=== PATIENT | female | born 1995 | race Caucasian/White ===

== ENCOUNTER 2016-12-15 07:44 | Inpatient (IN) | payer OTHER ==
[2016-12-15] VITALS (12 sets, daily range): BP systolic 100–114; BP diastolic 68–71; PULSE 74–98; RESP 24–27; TEMP 96.3–97.9; O2SAT 84–100
[~2016-12-15] VITALS: Ht 154.9 cm; Wt 47.9 kg
[2016-12-15] MEDS ORDERED: ceFAZolin 2 GM PREMIX 50 ML ONE (07:49)
[2016-12-15] MEDS ORDERED: DIPHTH/TETANUS/ACEL PERTUSSIS (BOOSTER) 0.5 ML VIAL/PFS IM ONE (07:49)
[2016-12-15] MEDS ORDERED: MANNITOL INJ 50 ML ONE (08:02)
[2016-12-15] MEDS ORDERED: MIDAZOLAM HCL 5 MG/ML VIAL (1 ML) ONE (08:08)
[2016-12-15 08:09] LABS: AUTOMATED NEUTROPHIL # 10.8 TH/MM3 (1.8-7.7); BASOPHIL % 0.2 % (0.0-2.0); EOSINOPHIL # 0.1 TH/MM3 (0-0.4); EOSINOPHIL % 0.4 % (0.0-4.0); HEMO FLAGS DIFF FINAL; LYMPH % 15.9 % (9.0-44.0); LYMPHOCYTE # 2.1 TH/MM3 (1.0-4.8); MEAN CELL VOLUME 84.7 FL (80.0-100.0); MEAN CORPUSCULAR HEMOGLOBIN 28.9 PG (27.0-34.0); MEAN CORPUSCULAR HGB CONC 34.1 % (32.0-36.0); NEUT % 80.5 % (16.0-70.0); PLATELET COUNT 170 TH/MM3 (150-450); RED BLOOD COUNT 3.66 MIL/MM3 (4.00-5.30); RED CELL DISTRIBUTION WIDTH 12.7 % (11.6-17.2); WHITE BLOOD COUNT 13.4 TH/MM3 (4.0-11.0)
[2016-12-15 08:11] LABS: I-STAT POTASSIUM 2.6 MMOL/L (3.5-4.9); I-STAT SODIUM 140 MMOL/L (138-146)
[2016-12-15 08:19] LABS: APTT (PATIENT) 23.9 SEC (24.3-30.1); INTERNATIONAL NORMALIZED RATIO 1.1 RATIO; PROTHROMBIN TIME - PATIENT 11.8 SEC (9.8-11.6)
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
[2016-12-15] MEDS ORDERED: IOHEXOL 350 MG/ML 100 ML BTL (for RAD DIAG) IV ONE (08:32)
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
[2016-12-15 08:37] LABS: BETA HCG QUANT LESS THAN 1 MIU/ML (0-5)
[2016-12-15] MEDS ORDERED: ceFAZolin INJ 1,000 MG VIAL IV ONE (08:55)
[2016-12-15] MEDS ORDERED: LIDOCAINE 1%/EPINEPHrine 1:100,000 SOLN 20 ML VIAL INFIL ONE ×2 (09:09→10:15)
[2016-12-15] MEDS ORDERED: GENTAMICIN SULFATE 80 MG/2 ML VIAL IRRIGATION ONE (09:09)
[2016-12-15] MEDS ORDERED: THROMBIN (TOPICAL) 5,000 UNIT VIAL TOPICAL ONE (09:09)
[2016-12-15] MEDS ORDERED: GELFOAM SIZE 100 TOP ONE (09:09)
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
[2016-12-15 09:17] LABS: BLOOD GAS BASE EXCESS -11.2 mmol/L (-2-2); BLOOD GAS HCO3 15 mmol/L (22-26); BLOOD GAS METHEMOGLOBIN 1.2 % (0-2); BLOOD GAS O2 HGB SATURATION 96 % (90-100); BLOOD GAS OXYGEN CONTENT 19.2 Vol % (12.0-20.0); BLOOD GAS PCO2 37 mmHg (38-42); BLOOD GAS PO2 125 mmHg (61-120); BLOOD GAS TOTAL HGB 14.1 G/DL (12.0-16.0); CRITICAL VALUE YES; TEMP CORR TO 98.6
[2016-12-15 09:18] LABS: STAT YES
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
[2016-12-15 10:38] LABS: BLOOD GAS BASE EXCESS -10.4 mmol/L (-2-2); BLOOD GAS CARBOXYHEMOGLOBIN 1.1 % (0-4); BLOOD GAS HCO3 16 mmol/L (22-26); BLOOD GAS METHEMOGLOBIN 1.2 % (0-2); BLOOD GAS O2 HGB SATURATION 93 % (90-100); BLOOD GAS OXYGEN CONTENT 15.3 Vol % (12.0-20.0); BLOOD GAS PCO2 41 mmHg (38-42); BLOOD GAS PO2 90 mmHg (61-120); BLOOD GAS TOTAL HGB 11.6 G/DL (12.0-16.0); TEMP CORR TO 98.6
[2016-12-15 10:39] LABS: CRITICAL VALUE YES; OXYGEN DEVICE OR; STAT YES
[2016-12-15] MEDS ORDERED: ONDANSETRON HCL 4 MG/2 ML VIAL IV PUSH ONE (10:58)
[2016-12-15] MEDS ORDERED: NORMOSOL R INJ 2,000 ML IV ONE (10:58)
[2016-12-15] MEDS ORDERED: LACTATED RINGER'S 1000 ML INJ 1,000 ML IV ONE (10:58)
--- NOTE | 2016-12-15 11:38 | RADRPT ---
EXAM DATE/TIME: 12/15/2016 09:50 [facility] COMPARISON: CHEST SINGLE AP, December 15, 2016, 7:40. INDICATIONS: Decreased oxygen saturation. MEDICAL HISTORY: None. SURGICAL HISTORY: None. ENCOUNTER: Initial ACUITY: 1 day PAIN SCORE: Non-responsive. LOCATION: Chest FINDINGS: ET tube, central venous catheter, nasogastric tube are in good position. Perihilar air space disease is seen in both lungs. There is no pneumothorax. Nasogastric tube is across the GE junction. CONCLUSION: Deterioration in appearance of chest as described above. Perihilar air space disease in both lungs representing a significant progression earlier the same day . John Dean MD FACR on December 15, 2016 at 11:23 Board Certified Radiologist. This report was verified electronically.
[2016-12-15] MEDS ORDERED: fentaNYL CITRATE 250 MCG/5 ML AMP ONE (11:50)
[2016-12-15] MEDS ORDERED: MIDAZOLAM HCL 2 MG/2 ML VIAL ONE (11:50)
[2016-12-15 11:53] LABS: BLOOD GAS BASE EXCESS -9.9 mmol/L (-2-2); BLOOD GAS CARBOXYHEMOGLOBIN 1.2 % (0-4); BLOOD GAS HCO3 17 mmol/L (22-26); BLOOD GAS METHEMOGLOBIN 1.2 % (0-2); BLOOD GAS O2 HGB SATURATION 82 % (90-100); BLOOD GAS PCO2 43 mmHg (38-42); BLOOD GAS PO2 53 mmHg (61-120); BLOOD GAS TOTAL HGB 13.1 G/DL (12.0-16.0); TEMP CORR TO 98.6
[2016-12-15] MEDS ORDERED: *RESP: ALBUTEROL 2.5 MG/3 ML NEB (PRN) PERIprocedural Use ONLY NEB ONE (11:53)
[2016-12-15 11:54] LABS: CRITICAL VALUE YES; DRAW SITE ART LINE; FIO2 100 %; OXYGEN DEVICE VENTILATOR; STAT YES; VENT SETTINGS PRVC/AC
[2016-12-15] MEDS ORDERED: PROPOFOL 1000 MG/100 ML INJ 100 ML ONE (12:06)
[2016-12-15] MEDS ORDERED: RESP: ALBUTEROL 0.63 MG/3 ML NEB (PRN) NEB (12:15)
[2016-12-15] MEDS ORDERED: TERBUTALINE INJ 1 MG/ML AMP SQ PRN (12:15)
[2016-12-15] MEDS ORDERED: PHENYLEPHRINE 40 MG/D5W 496 ML ADMIX IV SCH ×2 (12:15)
[2016-12-15] MEDS ORDERED: RESP: ALBUTEROL 0.63 MG/3 ML NEB (PRN) NEB ONE (12:18)
[2016-12-15] MEDS ORDERED: PROPOFOL 1000 MG/100 ML IV SCH (12:30)
[2016-12-15] MEDS ORDERED: SODIUM BICARBONATE 8.4% SOLN 50 MEQ/50 ML VIAL IV ONE (13:00)
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
[2016-12-15] MEDS ORDERED: FOSPHENYTOIN SODIUM 500 MG PE/10 ML VIAL IM ONE (13:15)
--- NOTE | 2016-12-15 13:17 | PD.OP ---
Operative Report Date of Surgery: Dec 15, 2016 Preoperative Diagnosis: (1) Subdural hematoma Traumatic brain injury with acute left hemisphere subdural hematoma Postoperative Diagnosis: (1) Subdural hematoma Traumatic brain injury with acute left hemisphere subdural hematoma Procedure: 1. Left decompressive craniotomy evacuation acute left hemisphere subdural hematoma 2. Placement left ICP monitor 3. Right frontal twist drill ventriculostomy placement Anesthesia: Gen. endotracheal Surgeon: Victor Hugo Gibson Lithographic Plate Maker(s): Mery Jeffries Operation and Findings: Findings: Moderate acute left hemisphere subdural hematoma with moderate cerebral edema Procedure in detail: The patient was brought into the operating room and general endotracheal anesthesia induced without difficulty. The Llanes catheter, and sequential compression devices were in place. The lines were established per anesthesia. The patient was placed in semilateral position on the 3080 table with the head on the horseshoe headrest. All extremities were appropriately padded Appropriate timeout procedure was performed with all personnel present and in agreement The left side of the head was shaved with the clippers and sterilely prepped and draped 1% Xylocaine was used for local infiltration over the incision site which was made over the left frontoparietal area in a curvilinear fashion and carried sharply down to the cranium through the temporalis muscle and fascia. The scalp and temporalis muscle flap were elevated in a single laye with the periosteal elevator and retracted r over a laparotomy sponge with the large scalp hooks. The stucco worker was used to place a single bur hole in the posterior left frontoparietal region and the craniotome was used since to incise the bone flap. The dura was moderately tense upon removal of the bone flap. The dura was opened in a cruciate fashion and the edges retracted with 4-0 Nurolon suture. The large underlying subdural hematoma was evacuated with gentle suction and irrigation until clear The bipolar forceps were used to control any bleeding at the operative site. There was still evidence of surrounding edema and the brain was bulging slightly beyond the edge dura at the the craniotomy site. It was elected to leave the bone flap out and the dura opened to allow for cerebral edema. The dura was covered with a piece of dural substitute. A 7 mm flat fluted drain was left in place in the subdural space The drain was brought out through incisions in the posterior parietal region and secured to the skin with nylon suture The ICP monitor was zeroed and placed through a small incision into the parenchyma of the left frontal lobe and secured to skin with nylon suture. The closure was performed with 2-0 Vicryl for the temporalis muscle fascia and galeal closure and harsha for the skin closure. Next, the right frontal region which had previously been prepped and draped was infiltrated with 1% Xylocaine. A small incision was made with the twist drill and the Codman ventricular catheter was placed in a single pass into the ventricle with good return of blood tinged cerebrospinal fluid was approximately 15 cm water opening pressure. The catheter was tunneled to the midline frontal region secured to the skin with nylon suture. A dressing of sterile Telfa, 4 x 4's, and a loose head stockinette was applied. The patient was taken to recovery room in stable condition All counts were correct at the end of the case. Estimated blood loss was 200 cc No specimen was sent to pathology Victor Hugo Gibson MD Dec 15, 2016 13:17
[2016-12-15] MEDS ORDERED: FOSPHENYTOIN INJ 1,000 MGPE in SODIUM CHLORIDE 0.9% INJ 50 ML IV ONE (14:00)
[2016-12-15] MEDS ORDERED: FOSPHENYTOIN SODIUM 100 MG PE/2 ML VIAL IV SCH (14:00)
[2016-12-15] MEDS ORDERED: NS + KCL 20 MEQ INJ 1,000 ML IV SCH (14:00)
[2016-12-15] MEDS ORDERED: DO NOT ADM ANY ANTICOAGULANT DRUGS XX PRN (14:00)
[2016-12-15] MEDS ORDERED: Post-op Orders (for Pharmacy) MISC XX ONE (14:30)
[2016-12-15] MEDS ORDERED: ONDANSETRON HCL 4 MG/2 ML VIAL IV PRN (14:30)
[2016-12-15] MEDS ORDERED: SODIUM CHLORIDE 0.9% FLUSH 5 ML FLUSH IVF PRN (14:30)
[2016-12-15] MEDS ORDERED: NALOXONE HCL 0.4 MG/ML AMP IV PRN (14:30)
[2016-12-15 14:49] LABS: BLOOD GAS BASE EXCESS -7.9 mmol/L (-2-2); BLOOD GAS HCO3 18 mmol/L (22-26); BLOOD GAS METHEMOGLOBIN 0.7 % (0-2); BLOOD GAS O2 HGB SATURATION 92 % (90-100); BLOOD GAS OXYGEN CONTENT 16.2 Vol % (12.0-20.0); BLOOD GAS PCO2 44 mmHg (38-42); BLOOD GAS PO2 77 mmHg (61-120); BLOOD GAS TOTAL HGB 12.5 G/DL (12.0-16.0); CRITICAL VALUE YES; OXYGEN DEVICE VENTILATOR; TEMP CORR TO 98.6
[2016-12-15 14:50] LABS: DRAW SITE ALINE; FIO2 80 %; STAT YES; VENT SETTINGS SEE COMMENTS
[2016-12-15] MEDS ORDERED: MAGNESIUM SULFATE INJ 4 GM in SODIUM CHLORIDE 0.9% INJ 92 ML IV PRN (15:00)
[2016-12-15] MEDS ORDERED: PROPOFOL 1000 MG/100 ML INJ 100 ML IV SCH (15:00)
[2016-12-15] MEDS ORDERED: fentaNYL DRIP 250 ML IV SCH (15:00)
[2016-12-15] MEDS ORDERED: POTASSIUM CHLOR 20 MEQ PREMIX 100 ML IV PRN ×2 (15:00)
[2016-12-15] MEDS ORDERED: MAGNESIUM OXIDE 400 MG TAB PO PRN (15:00)
[2016-12-15] MEDS ORDERED: POTASSIUM PHOSPHATE MONOBASIC 500 MG TAB PO/TUBE PRN (15:00)
[2016-12-15] MEDS ORDERED: POTASSIUM CL 40 MEQ/30 ML LIQ UDC PO/TUBE PRN (15:00)
[2016-12-15] MEDS ORDERED: PHENYLEPHRINE INJ 40 MG in DEXTROSE 5% IN WATE 500 ML INJ 496 ML IV SCH ×2 (15:00)
[2016-12-15] MEDS ORDERED: SODIUM BICARBONATE 8.4% INJ 50 MEQ/50 ML SYR IV PUSH ONE (15:00)
[2016-12-15] MEDS ORDERED: POTASSIUM PHOSPHATE MONOBASIC 500 MG TAB PO PRN (15:00)
[2016-12-15] MEDS ORDERED: SODIUM CHLOR 0.9% 1000 ML INJ 1,000 ML IV SCH (15:00)
[2016-12-15] MEDS ORDERED: PHENYLEPHRINE INJ 40 MG in SODIUM CHLORID 0.9% 500 ML INJ 496 ML IV SCH (15:00)
[2016-12-15] MEDS ORDERED: MAGNESIUM SULFATE INJ 2 GM in SODIUM CHLORIDE 0.9% INJ 96 ML IV PRN (15:00)
[2016-12-15] MEDS: PANTOPRAZOLE SODIUM 40 MG VIAL IV SCH (15:33)
[2016-12-15] MEDS: metroNIDAZOLE 500 MG INJ 100 ML IV SCH (15:34)
[2016-12-15 15:54] LABS: APTT (PATIENT) 30.8 SEC (24.3-30.1); INTERNATIONAL NORMALIZED RATIO 1.2 RATIO; PROTHROMBIN TIME - PATIENT 13.4 SEC (9.8-11.6)
--- NOTE | 2016-12-15 15:56 | RADRPT ---
EXAM DATE/TIME: 12/15/2016 15:35 [facility] COMPARISON: CT THORAX W CONTRAST, December 15, 2016, 8:11. CHEST SINGLE AP, December 15, 2016, 9:50. INDICATIONS : Hypoxemia MEDICAL HISTORY : None. SURGICAL HISTORY : None. ENCOUNTER: Subsequent ACUITY: 1 day PAIN SCORE: Non-responsive. LOCATION: Bilateral chest FINDINGS: The ET tubes in good position. There is an introducer in place via the left subclavian vein. There is a nasogastric tube in good position. The heart is normal in size. There is diffuse bilateral infiltrate suggesting bilateral parenchymal c ontusion versus noncardiogenic pulmonary edema. The visualized bony structures are grossly intact. Th e visualized osseous structures are grossly intact. CONCLUSION: 1. Diffuse airspace infiltrates bilaterally suggesting parenchymal contusion versus noncardiogenic ed josé miguel. No rib fractures are seen. 2. Support equipment in good position. Valeriano Dean MD on December 15, 2016 at 15:52 Board Certified Radiologist. This report was verified electronically.
[2016-12-15] MEDS ORDERED: 3% SALINE INJ 500 ML IV ONE (16:00)
[2016-12-15 16:08] LABS: BICARBONATE 21.3 MEQ/L (21.0-32.0)
[2016-12-15] MEDS ORDERED: FUROSEMIDE 20 MG/2 ML VIAL IV PUSH ONE (16:15)
[2016-12-15] MEDS ORDERED: FUROSEMIDE 40 MG/4 ML VIAL ONE (16:16)
[2016-12-15 16:23] LABS: CALCIUM-PROTEIN CORRECTED 7.9 MG/DL (8.5-10.1)
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
[2016-12-15] MEDS ORDERED: DEXTROSE 50% IN WATER 50 ML VIAL(D50) IV PUSH PRN (16:45)
[2016-12-15] MEDS ORDERED: GLUCAGON 1 MG/ML VIAL OTHER PRN (16:45)
[2016-12-15] MEDS: levETIRAcetam INJ 500 MG in SODIUM CHLORIDE 0.9% INJ 100 ML IV SCH (16:45)
[2016-12-15 16:48] LABS: BLOOD GAS BASE EXCESS -6.4 mmol/L (-2-2); BLOOD GAS CARBOXYHEMOGLOBIN 0.8 % (0-4); BLOOD GAS HCO3 22 mmol/L (22-26); BLOOD GAS O2 HGB SATURATION 91 % (90-100); BLOOD GAS OXYGEN CONTENT 16.2 Vol % (12.0-20.0); BLOOD GAS PCO2 67 mmHg (38-42); BLOOD GAS PO2 82 mmHg (61-120); BLOOD GAS TOTAL HGB 12.6 G/DL (12.0-16.0); CRITICAL VALUE YES; DRAW SITE ALINE; FIO2 100 %; OXYGEN DEVICE VENTILATOR; STAT NO; TEMP CORR TO 98.6; VENT SETTINGS SEE COMMENTS
[2016-12-15 17:04] LABS: AUTOMATED NEUTROPHIL # 22.6 TH/MM3 (1.8-7.7); BASOPHIL % 0.1 % (0.0-2.0); HEMATOCRIT 38.2 % (35.0-46.0); LYMPHOCYTE # 0.7 TH/MM3 (1.0-4.8); MEAN CELL VOLUME 84.7 FL (80.0-100.0); MEAN CORPUSCULAR HEMOGLOBIN 29.6 PG (27.0-34.0); MEAN CORPUSCULAR HGB CONC 34.9 % (32.0-36.0); MONO % 4.9 % (0.0-8.0); PLATELET COUNT 180 TH/MM3 (150-450); RED BLOOD COUNT 4.51 MIL/MM3 (4.00-5.30); RED CELL DISTRIBUTION WIDTH 13.9 % (11.6-17.2); WHITE BLOOD COUNT 24.6 TH/MM3 (4.0-11.0)
[2016-12-15 17:09] LABS: HEMO FLAGS AUTO DIFF
[2016-12-15 17:15] LABS: BANDS 20 % (0-6); NEUTROPHIL # MANUAL DIFF 23.4 TH/MM3 (1.8-7.7); PLATELET ESTIMATE SMEAR NORMAL (NORMAL); PLATELET MORPHOLOGY NORMAL (NORMAL); POLYS (SEG NEUTROPHILS) 75 % (16-70); SCAN/DIFF FINAL DIFF MANUAL; WBC DIFF SAMPLE 100
[2016-12-15] MEDS: INSULIN ASPART SUPPLEMENTAL SCALE SQ SCH (18:00)
[2016-12-15 18:15] LABS: BLOOD GAS BASE EXCESS -6.1 mmol/L (-2-2); BLOOD GAS CARBOXYHEMOGLOBIN 0.9 % (0-4); BLOOD GAS HCO3 20 mmol/L (22-26); BLOOD GAS O2 HGB SATURATION 95 % (90-100); BLOOD GAS OXYGEN CONTENT 18.1 Vol % (12.0-20.0); BLOOD GAS PCO2 47 mmHg (38-42); BLOOD GAS PO2 102 mmHg (61-120); BLOOD GAS TOTAL HGB 13.5 G/DL (12.0-16.0); CRITICAL VALUE YES; DRAW SITE ALINE; FIO2 100 %; OXYGEN DEVICE VENTILATOR; STAT NO; TEMP CORR TO 98.6; VENT SETTINGS SEE COMMENTS
[2016-12-15 18:51] LABS: MAGNESIUM 1.6 MG/DL (1.5-2.5); POTASSIUM 3.5 MEQ/L (3.5-5.1)
[2016-12-15 19:43] LABS: AMPHETAMINE, URINE NEG (NEG); BARBITURATES, URINE NEG (NEG); COCAINE, URINE NEG (NEG)
[2016-12-15] MEDS: CHLORHEXIDINE 0.12% (ORAL KIT) 15 ML CUP MT SCH (20:00)
[2016-12-15 20:25] LABS: CALCIUM-PROTEIN CORRECTED 6.9 MG/DL (8.5-10.1)
[2016-12-15] MEDS: SODIUM CHLORIDE 0.9% FLUSH 5 ML FLUSH IVF SCH (20:25)
[2016-12-15 20:52] LABS: BLOOD GAS BASE EXCESS -7.2 mmol/L (-2-2); BLOOD GAS CARBOXYHEMOGLOBIN 0.9 % (0-4); BLOOD GAS HCO3 18 mmol/L (22-26); BLOOD GAS METHEMOGLOBIN 0.9 % (0-2); BLOOD GAS O2 HGB SATURATION 92 % (90-100); BLOOD GAS OXYGEN CONTENT 17.3 Vol % (12.0-20.0); BLOOD GAS PCO2 34 mmHg (38-42); BLOOD GAS PO2 73 mmHg (61-120); BLOOD GAS TOTAL HGB 13.3 G/DL (12.0-16.0); TEMP CORR TO 98.6
[2016-12-15 20:53] LABS: CRITICAL VALUE NO; DRAW SITE ART LINE; FIO2 95 %; NUMBER OF ARTERIAL PUNCTURES 0; OXYGEN DEVICE VENTILATOR; STAT YES; ULNAR PULSE PRESENT
[2016-12-15] MEDS: SODIUM BICARBONATE 8.4% INJ 150 MEQ in WATER STERILE FOR INJ 850 ML IV SCH ×2 (21:00→23:00)
[2016-12-15] MEDS ORDERED: SODIUM CHLORIDE IV SCH ×2 (21:00)
[2016-12-15] MEDS ORDERED: DOBUTAMINE IV SCH ×2 (21:00)
[2016-12-15] MEDS: FOSPHENYTOIN INJ 100 MGPE in SODIUM CHLORIDE 0.9% INJ 50 ML IV SCH (22:00)
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
--- NOTE | 2016-12-15 22:42 | RADRPT ---
EXAM DATE/TIME: 12/15/2016 20:59 [facility] COMPARISON: CHEST SINGLE AP, December 15, 2016, 15:35. INDICATIONS : Check respiratory status. MEDICAL HISTORY : unobtainable SURGICAL HISTORY : unobtainable ENCOUNTER: Subsequent ACUITY: 1 day PAIN SCORE: Non-responsive. LOCATION: Bilateral upper chest FINDINGS: Endotracheal tube tip in satisfactory position. NG coiled in stomach and left central line tip in lef t brachiocephalic vein. Bilateral airspace consolidation, left greater than right. Small effusions. N o pneumothorax. CONCLUSION: 1. Bilateral airspace consolidation, similar to earlier examination. Support apparatus in satisfactor y position. Karl Leone MD on December 15, 2016 at 22:39 Board Certified Radiologist. This report was verified electronically.
[2016-12-15] MEDS: PROPOFOL 1000 MG/100 ML INJ 100 ML IV SCH (23:00)
--- NOTE | 2016-12-15 23:00 | PD.PROCEDR ---
Procedure Note Procedure DX: Traumatic Brain Injury OP: Insertion Right Subclavian Vein Central Line (23745) Procedure: Right chest prepped and draped. Patient placed semi-supine. Intracranial pressure maintained < 10 cm H2O. Right subclavian vein cannulated with micropuncture needle and wire easily advanced. Dilator passed and catheter pased over second wire to 18 cm. Lumens aspirated and flushed. Dressing applied. CXR ordered, central line in good position, suitable for use. Juan Rolon MD Dec 15, 2016 23:00
[2016-12-15 23:12] LABS: BLOOD GAS BASE EXCESS -7.6 mmol/L (-2-2); BLOOD GAS HCO3 17 mmol/L (22-26); BLOOD GAS METHEMOGLOBIN 0.8 % (0-2); BLOOD GAS O2 HGB SATURATION 91 % (90-100); BLOOD GAS OXYGEN CONTENT 16.9 Vol % (12.0-20.0); BLOOD GAS PCO2 28 mmHg (38-42); BLOOD GAS PO2 66 mmHg (61-120); BLOOD GAS TOTAL HGB 13.2 G/DL (12.0-16.0); CRITICAL VALUE NO; OXYGEN DEVICE VENTILATOR
[2016-12-15 23:16] LABS: VENT SETTINGS PRVC/AC/20/400/.80/
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
[2016-12-15 23:17] LABS: DRAW SITE ART LINE; FIO2 95 %; NUMBER OF ARTERIAL PUNCTURES 0; STAT NO; TEMP CORR TO 98.7; ULNAR PULSE PRESENT
[2016-12-15] MEDS ORDERED: MAGNESIUM SULFATE 1 GM PREMIX 100 ML IV SCH (23:30)
[2016-12-15] MEDS: PHENYLEPHRINE INJ 160 MG in SODIUM CHLORID 0.9% 500 ML INJ 484 ML IV SCH (23:35)
--- NOTE | 2016-12-15 23:48 | RADRPT ---
EXAM DATE/TIME: 12/15/2016 23:00 [facility] COMPARISON: CT THORAX W CONTRAST, December 15, 2016, 8:11. CHEST SINGLE AP, December 15, 2016, 20:59. INDICATIONS : Central line placement. MEDICAL HISTORY : Unobtainable. SURGICAL HISTORY : Unobtainable. ENCOUNTER: Subsequent ACUITY: 1 day PAIN SCORE: Non-responsive. LOCATION: Bilateral chest FINDINGS: The support devices remain in place. There is a new right central line in place which appears to be i n good position. There is no evidence of pneumothorax. There continues to be bilateral interstitial a nd airspace infiltrates throughout both lung lawson without significant change compared to the prior study. The heart size is stable. No new or significant changes. CONCLUSION: 1. Right central line in place. 2. No pneumothorax. 3. Stable bilateral interstitial and air space pulmonary infiltrates. Juan Carlos Daigle MD on December 15, 2016 at 23:45 Board Certified Radiologist. This report was verified electronically.
[2016-12-16] VITALS (14 sets, daily range): BP systolic 94–118; BP diastolic 31–65; PULSE 79–118; RESP 9–22; TEMP 98–100.7; O2SAT 96–100
[2016-12-16 01:07] LABS: BLOOD GAS BASE EXCESS -7.3 mmol/L (-2-2); BLOOD GAS CARBOXYHEMOGLOBIN 0.8 % (0-4); BLOOD GAS HCO3 18 mmol/L (22-26); BLOOD GAS O2 HGB SATURATION 93 % (90-100); BLOOD GAS OXYGEN CONTENT 16.7 Vol % (12.0-20.0); BLOOD GAS PCO2 41 mmHg (38-42); BLOOD GAS PO2 85 mmHg (61-120); BLOOD GAS TOTAL HGB 12.7 G/DL (12.0-16.0)
[2016-12-16 01:13] LABS: CRITICAL VALUE YES; OXYGEN DEVICE VENTILATOR
[2016-12-16 01:15] LABS: DRAW SITE ART LINE; FIO2 95 %; NUMBER OF ARTERIAL PUNCTURES 0; STAT NO; TEMP CORR TO 98.7; ULNAR PULSE PRESENT; VENT SETTINGS SEE COMMENTS
[2016-12-16] MEDS: SODIUM CHLORIDE 0.9% IV SCH ×2 (01:15→02:05)
[2016-12-16] MEDS: MAGNESIUM SULFATE IV SCH ×2 (01:15→02:05)
[2016-12-16 01:24] LABS: BICARBONATE 23.2 MEQ/L (21.0-32.0); CALCIUM-PROTEIN CORRECTED 7.5 MG/DL (8.5-10.1); MAGNESIUM 1.5 MG/DL (1.5-2.5); POTASSIUM 3.8 MEQ/L (3.5-5.1); TOTAL BILIRUBIN ADULT 0.7 MG/DL (0.2-1.0)
[2016-12-16] MEDS ORDERED: SODIUM BICARBONATE 8.4% INJ 50 MEQ/50 ML SYR IV PUSH ONE (01:30)
[2016-12-16] MEDS ORDERED: FUROSEMIDE 20 MG/2 ML VIAL IV PUSH ONE (01:30)
[2016-12-16] MEDS: levETIRAcetam INJ 500 MG in SODIUM CHLORIDE 0.9% INJ 100 ML IV SCH ×2 (03:17→15:23)
[2016-12-16] MEDS: PROPOFOL 1000 MG/100 ML INJ 100 ML IV SCH (04:02)
[2016-12-16 04:18] LABS: AUTOMATED NEUTROPHIL # 24.7 TH/MM3 (1.8-7.7); BASOPHIL # 0.1 TH/MM3 (0-0.2); BASOPHIL % 0.2 % (0.0-2.0); HEMATOCRIT 38.4 % (35.0-46.0); HEMO FLAGS DIFF FINAL; LYMPH % 2.9 % (9.0-44.0); LYMPHOCYTE # 0.8 TH/MM3 (1.0-4.8); MEAN CELL VOLUME 84.5 FL (80.0-100.0); MEAN CORPUSCULAR HEMOGLOBIN 28.7 PG (27.0-34.0); MONO % 5.3 % (0.0-8.0); NEUT % 91.6 % (16.0-70.0); PLATELET COUNT 155 TH/MM3 (150-450); RED BLOOD COUNT 4.54 MIL/MM3 (4.00-5.30); RED CELL DISTRIBUTION WIDTH 14.1 % (11.6-17.2)
[2016-12-16 04:25] LABS: APTT (PATIENT) 26.8 SEC (24.3-30.1); INTERNATIONAL NORMALIZED RATIO 1.1 RATIO; PROTHROMBIN TIME - PATIENT 12.4 SEC (9.8-11.6)
[2016-12-16 04:29] LABS: BICARBONATE 26.8 MEQ/L (21.0-32.0); MAGNESIUM 2.4 MG/DL (1.5-2.5); POTASSIUM 3.9 MEQ/L (3.5-5.1)
[2016-12-16 04:39] LABS: BLOOD GAS BASE EXCESS -1.5 mmol/L (-2-2); BLOOD GAS CARBOXYHEMOGLOBIN 0.8 % (0-4); BLOOD GAS HCO3 23 mmol/L (22-26); BLOOD GAS O2 HGB SATURATION 98 % (90-100); BLOOD GAS OXYGEN CONTENT 17.9 Vol % (12.0-20.0); BLOOD GAS PCO2 44 mmHg (38-42); BLOOD GAS PO2 244 mmHg (61-120); BLOOD GAS TOTAL HGB 12.7 G/DL (12.0-16.0); CRITICAL VALUE NO; OXYGEN DEVICE VENTILATOR; TEMP CORR TO 98.6
[2016-12-16 04:41] LABS: FIO2 90 %; VENT SETTINGS SEE COMMENTS
[2016-12-16 04:42] LABS: DRAW SITE ART LINE; NUMBER OF ARTERIAL PUNCTURES 0; STAT YES; ULNAR PULSE PRESENT
[2016-12-16 04:58] LABS: CALCIUM-PROTEIN CORRECTED 7.4 MG/DL (8.5-10.1)
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
--- NOTE | 2016-12-16 05:54 | RADRPT ---
EXAM DATE/TIME: 12/16/2016 04:42 [facility] COMPARISON: CHEST SINGLE AP, December 15, 2016, 23:00. INDICATIONS : Pneumonia. MEDICAL HISTORY : Unobtainable. SURGICAL HISTORY : Unobtainable. ENCOUNTER: Subsequent ACUITY: 2 days PAIN SCORE: Non-responsive. LOCATION: Bilateral chest FINDINGS: There continue to be bilateral interstitial and airspace infiltrates which are mildly improved compar ed to the prior exam. The heart size is stable. No pleural effusions. No evidence of pneumothorax. Th e support devices remain in place. CONCLUSION: Mild improved aeration of the lungs. There continue be bilateral interstitial and airspace infiltrate sStephany Daigle MD on December 16, 2016 at 5:52 Board Certified Radiologist. This report was verified electronically.
[2016-12-16] MEDS: INSULIN ASPART SUPPLEMENTAL SCALE SQ SCH ×4 (06:00→17:36)
[2016-12-16] MEDS: FOSPHENYTOIN INJ 100 MGPE in SODIUM CHLORIDE 0.9% INJ 50 ML IV SCH ×3 (06:19→21:10)
[2016-12-16 07:19] LABS: BLOOD GAS CARBOXYHEMOGLOBIN 0.8 % (0-4); BLOOD GAS HCO3 24 mmol/L (22-26); BLOOD GAS METHEMOGLOBIN 0.9 % (0-2); BLOOD GAS O2 HGB SATURATION 98 % (90-100); BLOOD GAS OXYGEN CONTENT 17.4 Vol % (12.0-20.0); BLOOD GAS PCO2 40 mmHg (38-42); BLOOD GAS PO2 272 mmHg (61-120); BLOOD GAS TOTAL HGB 12.2 G/DL (12.0-16.0); CRITICAL VALUE NO; TEMP CORR TO 98.6
[2016-12-16 07:20] LABS: FIO2 80 %; OXYGEN DEVICE VENTILATOR
[2016-12-16 07:23] LABS: VENT SETTINGS SEE COMMENTS
[2016-12-16 07:24] LABS: DRAW SITE ART LINE; NUMBER OF ARTERIAL PUNCTURES 0; STAT NO; ULNAR PULSE PRESENT
[2016-12-16] MEDS: CHLORHEXIDINE 0.12% (ORAL KIT) 15 ML CUP MT SCH ×2 (08:00→20:00)
[2016-12-16] MEDS: SODIUM CHLORIDE 0.9% FLUSH 5 ML FLUSH IVF SCH ×2 (08:26→20:18)
[2016-12-16] MEDS: metroNIDAZOLE 500 MG INJ 100 ML IV SCH ×2 (08:26)
[2016-12-16] MEDS: ACETAMINOPHEN 1000 MG/100 ML VIAL IV PRN ×2 (10:03→21:10)
[2016-12-16 10:52] LABS: HEMATOCRIT 35.3 % (35.0-46.0); REVIEW FLAG FINAL
[2016-12-16 12:29] LABS: BLOOD GAS BASE EXCESS 1.4 mmol/L (-2-2); BLOOD GAS CARBOXYHEMOGLOBIN 0.8 % (0-4); BLOOD GAS HCO3 26 mmol/L (22-26); BLOOD GAS METHEMOGLOBIN 0.9 % (0-2); BLOOD GAS O2 HGB SATURATION 98 % (90-100); BLOOD GAS OXYGEN CONTENT 17.3 Vol % (12.0-20.0); BLOOD GAS PCO2 41 mmHg (38-42); BLOOD GAS PO2 239 mmHg (61-120); BLOOD GAS TOTAL HGB 12.2 G/DL (12.0-16.0); CRITICAL VALUE NO; OXYGEN DEVICE VENTILATOR; TEMP CORR TO 98.6
[2016-12-16 12:30] LABS: DRAW SITE ALINE; FIO2 60 %; STAT NO; VENT SETTINGS SEE COMMENTS
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
[2016-12-16] MEDS: PHENYLEPHRINE INJ 160 MG in SODIUM CHLORID 0.9% 500 ML INJ 484 ML IV SCH (14:28)
[2016-12-16] MEDS: NOREPINEPHRINE INJ 16 MG in SODIUM CHLOR 0.9% 250 ML INJ 234 ML IV SCH (15:21)
[2016-12-16] MEDS: PANTOPRAZOLE SODIUM 40 MG VIAL IV SCH (15:23)
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
[2016-12-16 15:45] LABS: BLOOD GAS BASE EXCESS -0.1 mmol/L (-2-2); BLOOD GAS CARBOXYHEMOGLOBIN 0.7 % (0-4); BLOOD GAS HCO3 25 mmol/L (22-26); BLOOD GAS METHEMOGLOBIN 0.8 % (0-2); BLOOD GAS O2 HGB SATURATION 98 % (90-100); BLOOD GAS OXYGEN CONTENT 17.4 Vol % (12.0-20.0); BLOOD GAS PCO2 44 mmHg (38-42); BLOOD GAS PO2 250 mmHg (61-120); BLOOD GAS TOTAL HGB 12.2 G/DL (12.0-16.0); CRITICAL VALUE NO; OXYGEN DEVICE VENTILATOR; TEMP CORR TO 98.6
[2016-12-16 15:46] LABS: DRAW SITE ART LINE; FIO2 60 %; STAT NO
[2016-12-16 16:03] LABS: HEMATOCRIT 36.5 % (35.0-46.0); REVIEW FLAG FINAL
[2016-12-16 16:38] LABS: BICARBONATE 31.5 MEQ/L (21.0-32.0); POTASSIUM 3.9 MEQ/L (3.5-5.1)
[2016-12-16 16:55] LABS: CALCIUM-PROTEIN CORRECTED 7.4 MG/DL (8.5-10.1)
[2016-12-16] MEDS ORDERED: CALCIUM GLUCONATE INJ 2 GM in SODIUM CHLORIDE 0.9% INJ 100 ML IV ONE (18:00)
[2016-12-16] MEDS: SODIUM BICARBONATE 8.4% INJ 150 MEQ in WATER STERILE FOR INJ 850 ML IV SCH (18:58)
[2016-12-16 19:05] LABS: BACTERIA, URINE OCC /hpf; BLOOD, URINE MOD (NEG); COMMENT (UR) CULTURE INDICATED; CULTURE IF INDICATED CULTURE INDICATED; GLUCOSE,URINE TRACE mg/dL (NEG); KETONE, URINE TRACE mg/dL (NEG); NITRITE,URINE NEG (NEG); SQUAMOUS EPITHELIAL CELL URINE 1 /hpf (0-5); URINE COLOR DARK-YELLOW (YELLW/STRAW)
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
[2016-12-16 20:50] LABS: BLOOD GAS BASE EXCESS 2.2 mmol/L (-2-2); BLOOD GAS CARBOXYHEMOGLOBIN 0.8 % (0-4); BLOOD GAS HCO3 27 mmol/L (22-26); BLOOD GAS METHEMOGLOBIN 0.8 % (0-2); BLOOD GAS O2 HGB SATURATION 98 % (90-100); BLOOD GAS PCO2 44 mmHg (38-42); BLOOD GAS PO2 167 mmHg (61-120); BLOOD GAS TOTAL HGB 12.2 G/DL (12.0-16.0); CRITICAL VALUE NO; OXYGEN DEVICE VENTILATOR; TEMP CORR TO 98.6
[2016-12-16 20:51] LABS: DRAW SITE ART LINE; FIO2 45 %; STAT NO
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
[2016-12-16] MEDS ORDERED: ALBUMIN HUMAN 5% 25 GM/500 ML BOTTLE IV SCH (21:45)
[2016-12-16] MEDS: ARTIFICIAL TEARS OPTH SOLN 15 ML BTL EACH EYE PRN (21:58)
[2016-12-16 22:41] LABS: HEMATOCRIT 31.4 % (35.0-46.0); REVIEW FLAG FINAL
[2016-12-17] VITALS (15 sets, daily range): BP systolic 108–137; BP diastolic 59–64; PULSE 84–106; RESP 12–30; TEMP 98.9–100.3; O2SAT 100
[2016-12-17] MEDS: NOREPINEPHRINE INJ 16 MG in SODIUM CHLOR 0.9% 250 ML INJ 234 ML IV SCH ×2 (00:06→20:42)
[2016-12-17] MEDS: BROMOCRIPTINE MESYLATE 2.5 MG TAB PO SCH ×3 (01:15→20:42)
[2016-12-17 01:19] LABS: BLOOD GAS BASE EXCESS 1.5 mmol/L (-2-2); BLOOD GAS CARBOXYHEMOGLOBIN 0.8 % (0-4); BLOOD GAS HCO3 27 mmol/L (22-26); BLOOD GAS METHEMOGLOBIN 0.8 % (0-2); BLOOD GAS O2 HGB SATURATION 98 % (90-100); BLOOD GAS OXYGEN CONTENT 14.6 Vol % (12.0-20.0); BLOOD GAS PCO2 50 mmHg (38-42); BLOOD GAS PO2 190 mmHg (61-120); BLOOD GAS TOTAL HGB 10.3 G/DL (12.0-16.0); CRITICAL VALUE NO; OXYGEN DEVICE VENTILATOR; TEMP CORR TO 98.6
[2016-12-17 01:21] LABS: DRAW SITE ART LINE; FIO2 40 %; STAT NO
--- NOTE | 2016-12-17 01:42 | PD.PROCEDR ---
Procedure Note Procedure ARTERIAL LINE (A-Line) PLACEMENT Date: 12/17 Time: 115 Indication: Hemodynamic monitoring A time-out was completed verifying correct patient, procedure, site, positioning , and special equipment if applicable. Allens test was performed to ensure adequate perfusion. The patients <right groin was prepped and draped in sterile fashion. 1% Lidocaine was used to anesthetize the area. A <18G/ Arrow arterial line was introduced into the femoral> artery. The catheter was threaded over the guide wire and the needle was removed with appropriate pulsatile blood return. The catheter was then sutured in place to the skin and a sterile dressing applied. Perfusion to the extremity distal to the point of catheter insertion was checked and found to be adequate. Estimated Blood Loss: 1 ml The patient tolerated the procedure well and there were no complications. Kristian Singleton MD Dec 17, 2016 01:41
[2016-12-17] MEDS: MEPERIDINE HCL 25 MG/ML VIAL IV PUSH PRN (02:04)
--- NOTE | 2016-12-17 03:55 | RADRPT ---
EXAM DATE/TIME: 12/17/2016 02:59 [facility] COMPARISON: CHEST SINGLE AP, December 16, 2016, 4:42. INDICATIONS : Trauma MEDICAL HISTORY : Unknown SURGICAL HISTORY : Unknown ENCOUNTER: Initial ACUITY: 4 - 6 days PAIN SCORE: Non-responsive. LOCATION: Bilateral chest FINDINGS: The support devices remain in place. There has been overall moderate improvement of the bilateral pul monary infiltrates. Today's study the infiltrates have almost totally resolved. No new infiltrates ar e seen. Heart size is stable. There is no pneumothorax. No pleural effusions. CONCLUSION: The previously noted bilateral pulmonary infiltrates have almost completely resolved. Juan Carlos Daigle MD on December 17, 2016 at 3:52 Board Certified Radiologist. This report was verified electronically.
[2016-12-17] MEDS: levETIRAcetam INJ 500 MG in SODIUM CHLORIDE 0.9% INJ 100 ML IV SCH ×2 (04:00→15:45)
[2016-12-17 05:05] LABS: AUTOMATED NEUTROPHIL # 20.3 TH/MM3 (1.8-7.7); EOSINOPHIL % 0.1 % (0.0-4.0); HEMATOCRIT 30.9 % (35.0-46.0); HEMO FLAGS DIFF FINAL; LYMPH % 5.3 % (9.0-44.0); LYMPHOCYTE # 1.2 TH/MM3 (1.0-4.8); MEAN CELL VOLUME 85.4 FL (80.0-100.0); MEAN CORPUSCULAR HEMOGLOBIN 28.9 PG (27.0-34.0); MEAN CORPUSCULAR HGB CONC 33.8 % (32.0-36.0); MONO % 4.2 % (0.0-8.0); NEUT % 90.4 % (16.0-70.0); PLATELET COUNT 103 TH/MM3 (150-450); RED BLOOD COUNT 3.61 MIL/MM3 (4.00-5.30); RED CELL DISTRIBUTION WIDTH 14.2 % (11.6-17.2); WHITE BLOOD COUNT 22.4 TH/MM3 (4.0-11.0)
[2016-12-17 05:17] LABS: APTT (PATIENT) 31.2 SEC (24.3-30.1); INTERNATIONAL NORMALIZED RATIO 1.3 RATIO; PROTHROMBIN TIME - PATIENT 14.6 SEC (9.8-11.6)
[2016-12-17 05:41] LABS: BICARBONATE 30.9 MEQ/L (21.0-32.0); CALCIUM-PROTEIN CORRECTED 7.9 MG/DL (8.5-10.1); MAGNESIUM 2.1 MG/DL (1.5-2.5); POTASSIUM 3.4 MEQ/L (3.5-5.1); TOTAL BILIRUBIN ADULT 0.6 MG/DL (0.2-1.0)
[2016-12-17 05:43] LABS: BLOOD GAS BASE EXCESS 3.6 mmol/L (-2-2); BLOOD GAS CARBOXYHEMOGLOBIN 0.9 % (0-4); BLOOD GAS HCO3 29 mmol/L (22-26); BLOOD GAS METHEMOGLOBIN 0.9 % (0-2); BLOOD GAS O2 HGB SATURATION 98 % (90-100); BLOOD GAS OXYGEN CONTENT 14.4 Vol % (12.0-20.0); BLOOD GAS PCO2 54 mmHg (38-42); BLOOD GAS PO2 197 mmHg (61-120); BLOOD GAS TOTAL HGB 10.2 G/DL (12.0-16.0); TEMP CORR TO 98.6
[2016-12-17 05:44] LABS: CRITICAL VALUE YES; OXYGEN DEVICE VENTILATOR
[2016-12-17 05:46] LABS: DRAW SITE ART LINE; FIO2 40 %; STAT NO
[2016-12-17] MEDS: FOSPHENYTOIN INJ 100 MGPE in SODIUM CHLORIDE 0.9% INJ 50 ML IV SCH ×3 (06:00→20:41)
[2016-12-17] MEDS: INSULIN ASPART SUPPLEMENTAL SCALE SQ SCH ×4 (06:00→17:53)
[2016-12-17] MEDS: POTASSIUM PHOSPHATE INJ 30 MMOL in SODIUM CHLOR 0.9% 250 ML INJ 250 ML IV PRN ×2 (07:53→18:11)
[2016-12-17] MEDS: ARTIFICIAL TEARS OPTH SOLN 15 ML BTL EACH EYE PRN (07:53)
[2016-12-17] MEDS: CHLORHEXIDINE 0.12% (ORAL KIT) 15 ML CUP MT SCH ×2 (07:53→20:42)
[2016-12-17] MEDS: PROPOFOL 1000 MG/100 ML INJ 100 ML IV SCH ×3 (07:55→20:40)
[2016-12-17] MEDS ORDERED: EPINEPHrine HCL (1:10,000) 1 MG/10 ML SYRINGE ONE (08:19)
[2016-12-17] MEDS ORDERED: ARTIFICIAL TEARS OPTH OINT 3.5 APPLIC/3.5 GM TUBO EACH EYE PRN (08:30)
[2016-12-17 08:36] LABS: BLOOD GAS BASE EXCESS 3.8 mmol/L (-2-2); BLOOD GAS CARBOXYHEMOGLOBIN 0.8 % (0-4); BLOOD GAS HCO3 28 mmol/L (22-26); BLOOD GAS METHEMOGLOBIN 0.9 % (0-2); BLOOD GAS O2 HGB SATURATION 98 % (90-100); BLOOD GAS OXYGEN CONTENT 14.6 Vol % (12.0-20.0); BLOOD GAS PCO2 47 mmHg (38-42); BLOOD GAS PO2 183 mmHg (61-120); BLOOD GAS TOTAL HGB 10.3 G/DL (12.0-16.0)
[2016-12-17 08:37] LABS: CRITICAL VALUE NO; DRAW SITE ART LINE; FIO2 40 %; NUMBER OF ARTERIAL PUNCTURES 0; OXYGEN DEVICE VENTILATOR; STAT NO; TEMP CORR TO 98.6; ULNAR PULSE PRESENT; VENT SETTINGS PRVC/AC
[2016-12-17] MEDS: SODIUM CHLORIDE 0.9% FLUSH 5 ML FLUSH IVF SCH ×2 (09:00→20:42)
[2016-12-17] MEDS: ARTIFICIAL TEARS OPTH OINT 3.5 APPLIC/3.5 GM TUBO EACH EYE SCH ×2 (09:30→20:46)
--- NOTE | 2016-12-17 09:40 | RADRPT ---
EXAM DATE/TIME: 12/17/2016 08:49 [facility] COMPARISON: CT BRAIN W/O CONTRAST, December 15, 2016, 8:11. INDICATIONS : Follow up bleed RADIATION DOSE: 49.36 CTDIvol (mGy) MEDICAL HISTORY : None SURGICAL HISTORY : Craniotomy. ENCOUNTER: Subsequent ACUITY: 2 days PAIN SCALE: Non-responsive LOCATION: Bilateral cranial TECHNIQUE: Multiple contiguous axial images were obtained of the head. Using automated exposure control and adj ustment of the mA and/or kV according to patient size, radiation dose was kept as low as reasonably a chievable to obtain optimal diagnostic quality images. FINDINGS: There is minute in the interim left craniotomy evacuation of subdural hematoma. Structures major internal Wymer correctly situated with a ventricular catheter placed via a right fro ntal lele hole terminate at or near the foramen. CONCLUSION: Postoperative left craniotomy evacuation of left subdural hematoma. Sp Enrique MD on December 17, 2016 at 9:38 Board Certified Radiologist. This report was verified electronically.
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
[2016-12-17] MEDS: DOCUSATE SODIUM 50 MG/SENNA 8.6 MG TAB PO SCH ×2 (09:58→20:42)
[2016-12-17] MEDS ORDERED: FUROSEMIDE 20 MG/2 ML VIAL IV PUSH ONE (10:00)
[2016-12-17] MEDS: POTASSIUM CHLOR 40 MEQ PREMIX 100 ML IV PRN (11:21)
--- NOTE | 2016-12-17 12:12 | HHI.PR ---
Neuropsych Emotional Emotional: UnabletoAssess: Emotional, Anxious/Fearful, Depressed/Sad, Hostile/ Resentful, Irritable/Angry/Frustrate, Labile, Constricted/Blunted Behavior Behavior: Unable to Asses: Behavior, Coping/Acceptance, Cooperative w/ Treatment, Motivation, Frustration Tolerance/[place], Impulsive/Agitated, Suicidal/ Homicidal Risk Cognitive Cognitive: Unable to Asses: Cognitive, Attention/Concentration, Confused/ Orientation, Insight/Awareness, Judgement/Problem-Solving, Memory Psychosocial Psychosocial: Moderate: Psychosocial, Family/Other Adjustment, Realistic Expectation Progress Notes/Response to Tx Contents of Sessions: Level of Consciousness Time with Patient: 30 minutes Premorbid psychological status Premorbid Cognitive, Emotional and Behavioral Status: Stable. 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 The patient has no prior psychiatric difficulties, as described above. Substance abuse history is unremarkable. She is , [facility] Behavioral Reactions of Patient and Family/Support System: Tenuous. The patients family is experiencing ongoing issues of adjustment given the nature of the injury, and this aspect of recovery will require ongoing monitoring. Emotional/Behavioral Status of Patient and Family/Support System: Tenuous. Pertinent issues, if appropriate to this patients clinical care, are described in detail above. Maximizing acute care outcome This patient is very early into her recovery from her sustained traumatic brain injury, and presently medical recovery takes precedence over neurobehavioral recovery. As she improves, it is recommended that the patient be monitored for emergent behavioral impulsivity. This patients neuropathological challenges may limit their rehabilitation potential going forward, and these challenges will require specialized therapeutic skills to maximize outcome. Additionally, the patients family is experiencing ongoing issues of adjustment given the traumatic nature of the injury, and they will need ongoing psychological assistance, which I will provide. Anticipated Problems Presently, the most pressing concern is her medical recovery. As she progresses , ongoing areas of concern will likely include behavioral impulsivity, lack of insight and judgment, which is expected to improve with time and treatment. Presently, the patient in coma, unresponsive and sedated. Treatment Plan This clinician will continue to follow with you throughout the course of this patients rehabilitation treatment, and I will be available to meet with the patients family/support system to facilitate their understanding and the ongoing care of their family member. The goals of neuropsychological intervention shall be both educational and supportive to the family/support system as is deemed clinically appropriate. [facility] Level: I:No response-total assistance Impression This patient suffered a severe traumatic brain injury, with the likely probability of persistent neurocognitive impairment, depending on multiple medical factors. Diagnosis: (1) Major neurocognitive disorder as late effect of traumatic brain injury without behavioral disturbance Status: Acute Progress Note Narrative Ongoing follow-up of patient both within the context of trauma rounds, and individually with patient's family and . I discussed that the most pressing issues are medical, that neurobehavioral and neurocognitive issues are secondary at this time. I encouraged the patient's family to talk with her and to bring in a bluetooth speaker to play some of her favorite music at low volume in an effort to provide pleasant stimulation. I attempted to answer questions the family had within the confines of my professional expertise. I will follow this patient with you throughout her stay. Elver Cook PhD Dec 17, 2016 12:12 pm
[2016-12-17 15:23] LABS: BLOOD GAS BASE EXCESS 1.2 mmol/L (-2-2); BLOOD GAS CARBOXYHEMOGLOBIN 0.9 % (0-4); BLOOD GAS HCO3 25 mmol/L (22-26); BLOOD GAS METHEMOGLOBIN 1.1 % (0-2); BLOOD GAS O2 HGB SATURATION 97 % (90-100); BLOOD GAS OXYGEN CONTENT 14.2 Vol % (12.0-20.0); BLOOD GAS PCO2 38 mmHg (38-42); BLOOD GAS PO2 181 mmHg (61-120); BLOOD GAS TOTAL HGB 10.1 G/DL (12.0-16.0); CRITICAL VALUE NO; DRAW SITE ART LINE; FIO2 40 %; NUMBER OF ARTERIAL PUNCTURES 0; OXYGEN DEVICE VENTILATOR; STAT NO; TEMP CORR TO 98.6; ULNAR PULSE PRESENT; VENT SETTINGS PRVC/AC
[2016-12-17] MEDS: PANTOPRAZOLE SODIUM 40 MG VIAL IV SCH (15:44)
[2016-12-17 17:34] LABS: BICARBONATE 27.8 MEQ/L (21.0-32.0)
[2016-12-17 18:16] LABS: CALCIUM-PROTEIN CORRECTED 8.3 MG/DL (8.5-10.1)
[2016-12-17] MEDS: ACETAMINOPHEN 1000 MG/100 ML VIAL IV PRN (18:38)
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
[2016-12-17] MEDS: fentaNYL DRIP 250 ML IV SCH (20:41)
[2016-12-17 21:43] LABS: BLOOD GAS BASE EXCESS -1.1 mmol/L (-2-2); BLOOD GAS CARBOXYHEMOGLOBIN 0.9 % (0-4); BLOOD GAS HCO3 22 mmol/L (22-26); BLOOD GAS O2 HGB SATURATION 97 % (90-100); BLOOD GAS OXYGEN CONTENT 15.8 Vol % (12.0-20.0); BLOOD GAS PCO2 32 mmHg (38-42); BLOOD GAS PO2 151 mmHg (61-120); BLOOD GAS TOTAL HGB 11.3 G/DL (12.0-16.0); TEMP CORR TO 98.6
[2016-12-17 21:44] LABS: CRITICAL VALUE NO; OXYGEN DEVICE VENTILATOR
[2016-12-17 21:45] LABS: DRAW SITE ART LINE; FIO2 40 %; STAT NO
[2016-12-18] VITALS (13 sets, daily range): BP systolic 108–131; BP diastolic 64–77; PULSE 95–120; RESP 18–23; TEMP 97.8–100.2; O2SAT 99–100
--- NOTE | 2016-12-18 03:22 | RADRPT ---
EXAM DATE/TIME: 12/18/2016 02:30 [facility] COMPARISON: CHEST SINGLE AP, December 17, 2016, 2:59. INDICATIONS : Evaluate for pulomary disease. MEDICAL HISTORY : None. SURGICAL HISTORY : None. ENCOUNTER: Subsequent ACUITY: 1 week PAIN SCORE: Non-responsive. LOCATION: Bilateral chest FINDINGS: The support devices are in place. There are no pneumothorax. There is a mild infiltrate in the right lung base. Otherwise the lungs are clear. The heart size is stable. There are no pleural effusions. CONCLUSION: 1. Mild infiltrate in right lung base. 2. No pneumothorax. Juan Carlos Daigle MD on December 18, 2016 at 3:20 Board Certified Radiologist. This report was verified electronically.
[2016-12-18] MEDS: levETIRAcetam INJ 500 MG in SODIUM CHLORIDE 0.9% INJ 100 ML IV SCH ×2 (03:35→15:29)
[2016-12-18 04:40] LABS: MEAN CELL VOLUME 84.7 FL (80.0-100.0); MEAN CORPUSCULAR HEMOGLOBIN 29.9 PG (27.0-34.0); MEAN CORPUSCULAR HGB CONC 35.3 % (32.0-36.0); PLATELET COUNT 103 TH/MM3 (150-450); RED BLOOD COUNT 3.07 MIL/MM3 (4.00-5.30); RED CELL DISTRIBUTION WIDTH 14.2 % (11.6-17.2); REVIEW FLAG FINAL; WHITE BLOOD COUNT 15.3 TH/MM3 (4.0-11.0)
[2016-12-18 04:50] LABS: APTT (PATIENT) 32.2 SEC (24.3-30.1); INTERNATIONAL NORMALIZED RATIO 1.1 RATIO
[2016-12-18 05:05] LABS: BICARBONATE 28.5 MEQ/L (21.0-32.0); POTASSIUM 3.6 MEQ/L (3.5-5.1)
[2016-12-18 05:18] LABS: BLOOD GAS BASE EXCESS -1.2 mmol/L (-2-2); BLOOD GAS CARBOXYHEMOGLOBIN 1.1 % (0-4); BLOOD GAS HCO3 22 mmol/L (22-26); BLOOD GAS METHEMOGLOBIN 0.9 % (0-2); BLOOD GAS O2 HGB SATURATION 97 % (90-100); BLOOD GAS OXYGEN CONTENT 11.6 Vol % (12.0-20.0); BLOOD GAS PCO2 32 mmHg (38-42); BLOOD GAS PO2 159 mmHg (61-120); BLOOD GAS TOTAL HGB 8.2 G/DL (12.0-16.0); CRITICAL VALUE NO; OXYGEN DEVICE VENTILATOR; TEMP CORR TO 98.6
[2016-12-18 05:22] LABS: DRAW SITE ART LINE; FIO2 40 %; STAT NO
[2016-12-18] MEDS: INSULIN ASPART SUPPLEMENTAL SCALE SQ SCH ×3 (06:00→12:00)
[2016-12-18] MEDS: FOSPHENYTOIN INJ 100 MGPE in SODIUM CHLORIDE 0.9% INJ 50 ML IV SCH ×3 (06:12→20:23)
[2016-12-18] MEDS: PROPOFOL 1000 MG/100 ML INJ 100 ML IV SCH ×2 (06:12→20:23)
[2016-12-18] MEDS ORDERED: 3% SALINE INJ 500 ML IV ONE (07:30)
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
[2016-12-18] MEDS: CHLORHEXIDINE 0.12% (ORAL KIT) 15 ML CUP MT SCH ×2 (08:00→20:24)
[2016-12-18] MEDS: SENNOSIDES SYRUP 8.8 MG/5 ML CUP PO SCH (08:01)
[2016-12-18] MEDS: ARTIFICIAL TEARS OPTH OINT 3.5 APPLIC/3.5 GM TUBO EACH EYE SCH ×2 (08:01→20:24)
[2016-12-18] MEDS: SODIUM CHLORIDE 0.9% FLUSH 5 ML FLUSH IVF SCH ×2 (08:01→20:24)
[2016-12-18] MEDS: BROMOCRIPTINE MESYLATE 2.5 MG TAB PO SCH ×2 (08:01→20:23)
[2016-12-18] MEDS: DOCUSATE SODIUM 50 MG/SENNA 8.6 MG TAB PO SCH ×2 (08:01→20:24)
[2016-12-18] MEDS: LACTULOSE SYRUP 20 GM/30 ML CUP PO SCH (08:01)
[2016-12-18] MEDS: POTASSIUM PHOSPHATE INJ 30 MMOL in SODIUM CHLOR 0.9% 250 ML INJ 250 ML IV PRN (09:27)
[2016-12-18 11:20] LABS: BICARBONATE 23.9 MEQ/L (21.0-32.0)
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
--- NOTE | 2016-12-18 11:48 | HHI.PR ---
Neuropsych Emotional Emotional: UnabletoAssess: Emotional, Anxious/Fearful, Depressed/Sad, Hostile/ Resentful, Irritable/Angry/Frustrate, Labile, Constricted/Blunted Behavior Behavior: Unable to Asses: Behavior, Coping/Acceptance, Cooperative w/ Treatment, Motivation, Frustration Tolerance/[place], Impulsive/Agitated, Suicidal/ Homicidal Risk Cognitive Cognitive: Unable to Asses: Cognitive, Attention/Concentration, Confused/ Orientation, Insight/Awareness, Judgement/Problem-Solving, Memory Psychosocial Psychosocial: Intact: Psychosocial, Mild: Family/Other Adjustment, Realistic Expectation Progress Notes/Response to Tx Contents of Sessions: Adjustment, Level of Consciousness Time with Patient: 30 minutes Premorbid psychological status Premorbid Cognitive, Emotional and Behavioral Status: Stable. 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 The patient has no prior psychiatric difficulties, as described above. Substance abuse history is unremarkable. 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 Behavioral Reactions of Patient and Family/Support System: Tenuous. The patients family is experiencing ongoing issues of adjustment given the nature of the injury, and this aspect of recovery will require ongoing monitoring. Emotional/Behavioral Status of Patient and Family/Support System: Tenuous. Pertinent issues, if appropriate to this patients clinical care, are described in detail above. Maximizing acute care outcome This patient is very early into her recovery from her sustained traumatic brain injury, and presently medical recovery takes precedence over neurobehavioral recovery. As she improves, it is recommended that the patient be monitored for emergent behavioral impulsivity. This patients neuropathological challenges may limit their rehabilitation potential going forward, and these challenges will require specialized therapeutic skills to maximize outcome. Additionally, the patients family is experiencing ongoing issues of adjustment given the traumatic nature of the injury, and they will need ongoing psychological assistance, which I will provide. Anticipated Problems Presently, the most pressing concern is her medical recovery. As she progresses , ongoing areas of concern will likely include behavioral impulsivity, lack of insight and judgment, which is expected to improve with time and treatment. Presently, the patient in coma, unresponsive and sedated. Treatment Plan This clinician will continue to follow with you throughout the course of this patients rehabilitation treatment, and I will be available to meet with the patients family/support system to facilitate their understanding and the ongoing care of their family member. The goals of neuropsychological intervention shall be both educational and supportive to the family/support system as is deemed clinically appropriate. [facility] Level: I:No response-total assistance Impression This patient suffered a severe traumatic brain injury, with the likely probability of persistent neurocognitive impairment, depending on multiple medical factors. Diagnosis: (1) Major neurocognitive disorder as late effect of traumatic brain injury without behavioral disturbance Status: Acute Progress Note Narrative Ongoing follow-up of patient both within the context of trauma rounds and also individually with the patient's parents, sister and spouse. Family are providing quiet music as a coma stimulation procedure, including talking with the patient, who remains unresponsive at this point in time. Discussed with the patient's spouse (and later patient's family) basic principles of neuroanatomy, reiterating that at the present time, the whole team focus is on her medical stability, deemphasizing long-term neurocognitive and neurobehavioral expectations at this time. Important prognostic factors for this patient include her age, excellent health, educational and baseline intellectual abilities, and caring and supportive family. I will continue to follow with you. Elver Cook PhD Dec 18, 2016 11:48 am
[2016-12-18] MEDS ORDERED: SODIUM CHLORIDE 23.4% INJ 240 MEQ in SYRINGE/BAG 1 EA IV ONE (12:45)
[2016-12-18] MEDS: PANTOPRAZOLE SODIUM 40 MG VIAL IV SCH (15:29)
[2016-12-18 18:07] LABS: BICARBONATE 21.5 MEQ/L (21.0-32.0); MAGNESIUM 2.2 MG/DL (1.5-2.5); POTASSIUM 4.6 MEQ/L (3.5-5.1)
[2016-12-18] MEDS: SODIUM PHOSPHATE INJ 30 MMOL in SODIUM CHLOR 0.9% 250 ML INJ 240 ML IV PRN (18:23)
[2016-12-19] VITALS (17 sets, daily range): BP systolic 112–138; BP diastolic 63–78; PULSE 105–122; RESP 19–22; TEMP 97.7–99.7; O2SAT 93–100
[2016-12-19] MEDS: PROPOFOL 1000 MG/100 ML INJ 100 ML IV SCH ×2 (03:08→05:54)
[2016-12-19] MEDS: levETIRAcetam INJ 500 MG in SODIUM CHLORIDE 0.9% INJ 100 ML IV SCH ×2 (04:06→15:32)
[2016-12-19 04:29] LABS: HEMATOCRIT 27.5 % (35.0-46.0); MEAN CELL VOLUME 85.6 FL (80.0-100.0); MEAN CORPUSCULAR HEMOGLOBIN 29.6 PG (27.0-34.0); MEAN CORPUSCULAR HGB CONC 34.6 % (32.0-36.0); PLATELET COUNT 119 TH/MM3 (150-450); RED BLOOD COUNT 3.21 MIL/MM3 (4.00-5.30); RED CELL DISTRIBUTION WIDTH 14.3 % (11.6-17.2); REVIEW FLAG FINAL; WHITE BLOOD COUNT 14.7 TH/MM3 (4.0-11.0)
[2016-12-19 04:50] LABS: MAGNESIUM 2.1 MG/DL (1.5-2.5)
[2016-12-19 05:09] LABS: BLOOD GAS CARBOXYHEMOGLOBIN 1.2 % (0-4); BLOOD GAS HCO3 17 mmol/L (22-26); BLOOD GAS METHEMOGLOBIN 0.7 % (0-2); BLOOD GAS O2 HGB SATURATION 97 % (90-100); BLOOD GAS OXYGEN CONTENT 12.3 Vol % (12.0-20.0); BLOOD GAS PCO2 28 mmHg (38-42); BLOOD GAS PO2 142 mmHg (61-120); BLOOD GAS TOTAL HGB 8.8 G/DL (12.0-16.0); CRITICAL VALUE NO; OXYGEN DEVICE VENTILATOR; TEMP CORR TO 98.6
[2016-12-19 05:10] LABS: DRAW SITE ART LINE; FIO2 35 %; STAT NO; VENT SETTINGS PRVC/AC
[2016-12-19] MEDS: SODIUM PHOSPHATE INJ 30 MMOL in SODIUM CHLOR 0.9% 250 ML INJ 240 ML IV PRN (05:54)
[2016-12-19] MEDS: fentaNYL DRIP 250 ML IV SCH (05:54)
[2016-12-19] MEDS: FOSPHENYTOIN INJ 100 MGPE in SODIUM CHLORIDE 0.9% INJ 50 ML IV SCH ×3 (05:54→20:42)
[2016-12-19] MEDS: INSULIN ASPART SUPPLEMENTAL SCALE SQ SCH ×4 (06:00→18:00)
--- NOTE | 2016-12-19 06:28 | RADRPT ---
EXAM DATE/TIME: 12/19/2016 05:22 [facility] COMPARISON: CHEST SINGLE AP, December 18, 2016, 2:30. INDICATIONS : Evaluate after respiratory failure. MEDICAL HISTORY : None. SURGICAL HISTORY : None. ENCOUNTER: Subsequent ACUITY: 4 - 6 days PAIN SCORE: Non-responsive. LOCATION: Bilateral chest FINDINGS: Endotracheal tube and NG tube are noted. Right subclavian central venous catheter is unchanged. Heart size normal. No consolidation or effusion. Osseous structures are intact. CONCLUSION: Clear lungs. Scotty Mederos MD on December 19, 2016 at 6:26 Board Certified Radiologist. This report was verified electronically.
[2016-12-19] MEDS: SODIUM CHLORIDE 0.9% FLUSH 5 ML FLUSH IVF SCH ×2 (07:38→20:42)
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
[2016-12-19] MEDS ORDERED: SODIUM BICARBONATE 8.4% INJ 50 MEQ/50 ML SYR IV PUSH ONE (08:00)
[2016-12-19] MEDS ORDERED: 3% SALINE INJ 500 ML IV ONE (08:00)
[2016-12-19] MEDS: DOCUSATE SODIUM 50 MG/SENNA 8.6 MG TAB PO SCH ×2 (08:07→20:42)
[2016-12-19] MEDS: SENNOSIDES SYRUP 8.8 MG/5 ML CUP PO SCH (08:07)
[2016-12-19] MEDS: CHLORHEXIDINE 0.12% (ORAL KIT) 15 ML CUP MT SCH ×2 (08:07→20:10)
[2016-12-19] MEDS: BROMOCRIPTINE MESYLATE 2.5 MG TAB PO SCH ×2 (08:07→20:42)
[2016-12-19] MEDS: LACTULOSE SYRUP 20 GM/30 ML CUP PO SCH (08:07)
[2016-12-19] MEDS: ARTIFICIAL TEARS OPTH OINT 3.5 APPLIC/3.5 GM TUBO EACH EYE SCH ×2 (08:08→20:42)
[2016-12-19] MEDS ORDERED: SODIUM CHLORIDE 23.4% INJ 240 MEQ in SYRINGE/BAG 1 EA IV ONE (09:00)
[2016-12-19 10:45] LABS: MAGNESIUM 1.9 MG/DL (1.5-2.5)
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
[2016-12-19] MEDS: PANTOPRAZOLE SODIUM 40 MG VIAL IV SCH (15:32)
[2016-12-19 16:29] LABS: BICARBONATE 22.7 MEQ/L (21.0-32.0); POTASSIUM 3.1 MEQ/L (3.5-5.1)
[2016-12-19] MEDS: POTASSIUM CHLOR 40 MEQ PREMIX 100 ML IV PRN ×2 (16:34→16:35)
[2016-12-19] MEDS ORDERED: NOREPINEPHRINE 4 MG/4 ML AMP ONE (20:40)
[2016-12-20] VITALS (21 sets, daily range): BP systolic 116–128; BP diastolic 63–70; PULSE 94–124; RESP 19–24; TEMP 98.8–100.3; O2SAT 99–100
[2016-12-20] MEDS: levETIRAcetam INJ 500 MG in SODIUM CHLORIDE 0.9% INJ 100 ML IV SCH ×2 (04:07→15:19)
[2016-12-20 04:53] LABS: HEMATOCRIT 26.4 % (35.0-46.0); MEAN CELL VOLUME 86.1 FL (80.0-100.0); MEAN CORPUSCULAR HEMOGLOBIN 29.4 PG (27.0-34.0); MEAN CORPUSCULAR HGB CONC 34.1 % (32.0-36.0); PLATELET COUNT 146 TH/MM3 (150-450); RED BLOOD COUNT 3.06 MIL/MM3 (4.00-5.30); RED CELL DISTRIBUTION WIDTH 14.4 % (11.6-17.2); REVIEW FLAG FINAL; WHITE BLOOD COUNT 13.8 TH/MM3 (4.0-11.0)
[2016-12-20 05:06] LABS: MAGNESIUM 2.1 MG/DL (1.5-2.5); POTASSIUM 3.3 MEQ/L (3.5-5.1)
[2016-12-20 05:32] LABS: BLOOD GAS CARBOXYHEMOGLOBIN 1.2 % (0-4); BLOOD GAS HCO3 19 mmol/L (22-26); BLOOD GAS METHEMOGLOBIN 0.6 % (0-2); BLOOD GAS O2 HGB SATURATION 98 % (90-100); BLOOD GAS OXYGEN CONTENT 12.6 Vol % (12.0-20.0); BLOOD GAS PCO2 29 mmHg (38-42); BLOOD GAS PO2 165 mmHg (61-120); BLOOD GAS TOTAL HGB 8.9 G/DL (12.0-16.0); CRITICAL VALUE NO; TEMP CORR TO 98.6
[2016-12-20 05:33] LABS: OXYGEN DEVICE VENTILATOR
[2016-12-20 05:34] LABS: DRAW SITE ART LINE; FIO2 30 %; STAT NO; VENT SETTINGS PRVC
[2016-12-20] MEDS: INSULIN ASPART SUPPLEMENTAL SCALE SQ SCH ×4 (05:54→18:00)
[2016-12-20] MEDS: FOSPHENYTOIN INJ 100 MGPE in SODIUM CHLORIDE 0.9% INJ 50 ML IV SCH ×3 (05:57→21:11)
[2016-12-20] MEDS: POTASSIUM PHOSPHATE INJ 30 MMOL in SODIUM CHLOR 0.9% 250 ML INJ 250 ML IV PRN ×2 (05:58→21:30)
[2016-12-20] MEDS ORDERED: FUROSEMIDE 20 MG/2 ML VIAL IV PUSH ONE (07:15)
[2016-12-20] MEDS ORDERED: 3% SALINE INJ 500 ML IV ONE (07:15)
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
[2016-12-20] MEDS: SODIUM CHLORIDE 0.9% FLUSH 5 ML FLUSH IVF SCH ×2 (07:22→21:10)
[2016-12-20] MEDS: PROPRANOLOL HCL 10 MG TAB PO SCH ×3 (08:02→21:10)
[2016-12-20] MEDS: CHLORHEXIDINE 0.12% (ORAL KIT) 15 ML CUP MT SCH ×2 (08:02→20:57)
[2016-12-20] MEDS: LACTULOSE SYRUP 20 GM/30 ML CUP PO SCH (08:02)
[2016-12-20] MEDS: PROPOFOL 1000 MG/100 ML INJ 100 ML IV SCH ×2 (08:02→21:36)
[2016-12-20] MEDS: ARTIFICIAL TEARS OPTH OINT 3.5 APPLIC/3.5 GM TUBO EACH EYE SCH ×2 (08:02→21:00)
[2016-12-20] MEDS: DOCUSATE SODIUM 50 MG/SENNA 8.6 MG TAB PO SCH ×2 (08:02→21:10)
[2016-12-20 08:12] LABS: MAGNESIUM 2.1 MG/DL (1.5-2.5)
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
[2016-12-20] MEDS: PANTOPRAZOLE SODIUM 40 MG VIAL IV SCH (15:19)
[2016-12-20 18:13] LABS: MAGNESIUM 2.1 MG/DL (1.5-2.5); POTASSIUM 3.5 MEQ/L (3.5-5.1)
[2016-12-20] MEDS: fentaNYL DRIP 250 ML IV SCH (21:36)
[2016-12-21] VITALS (18 sets, daily range): BP systolic 122–158; BP diastolic 66–84; PULSE 88–103; RESP 18–27; TEMP 98.6–100.8; O2SAT 99–100
[2016-12-21] MEDS: ACETAMINOPHEN 1000 MG/100 ML VIAL IV PRN (01:01)
[2016-12-21] MEDS: levETIRAcetam INJ 500 MG in SODIUM CHLORIDE 0.9% INJ 100 ML IV SCH ×2 (04:28→16:28)
[2016-12-21 04:39] LABS: AUTOMATED NEUTROPHIL # 11.5 TH/MM3 (1.8-7.7); BASOPHIL % 0.3 % (0.0-2.0); EOSINOPHIL # 0.3 TH/MM3 (0-0.4); EOSINOPHIL % 2.5 % (0.0-4.0); HEMATOCRIT 27.8 % (35.0-46.0); HEMO FLAGS DIFF FINAL; LYMPH % 6.9 % (9.0-44.0); MEAN CELL VOLUME 85.7 FL (80.0-100.0); MEAN CORPUSCULAR HEMOGLOBIN 29.1 PG (27.0-34.0); MONO % 6.6 % (0.0-8.0); NEUT % 83.7 % (16.0-70.0); PLATELET COUNT 186 TH/MM3 (150-450); RED BLOOD COUNT 3.25 MIL/MM3 (4.00-5.30); RED CELL DISTRIBUTION WIDTH 14.1 % (11.6-17.2); WHITE BLOOD COUNT 13.8 TH/MM3 (4.0-11.0)
[2016-12-21 04:49] LABS: BLOOD GAS BASE EXCESS -2.3 mmol/L (-2-2); BLOOD GAS CARBOXYHEMOGLOBIN 1.1 % (0-4); BLOOD GAS HCO3 21 mmol/L (22-26); BLOOD GAS METHEMOGLOBIN 0.7 % (0-2); BLOOD GAS O2 HGB SATURATION 98 % (90-100); BLOOD GAS OXYGEN CONTENT 17.3 Vol % (12.0-20.0); BLOOD GAS PCO2 32 mmHg (38-42); BLOOD GAS PO2 166 mmHg (61-120); BLOOD GAS TOTAL HGB 12.4 G/DL (12.0-16.0); CRITICAL VALUE NO; OXYGEN DEVICE VENTILATOR; TEMP CORR TO 98.6
[2016-12-21 04:50] LABS: DRAW SITE ART LINE; FIO2 30 %; STAT NO; VENT SETTINGS PRVC/AC
[2016-12-21 04:52] LABS: ALKALINE PHOSPHATASE 110 U/L (45-117); ALT (GPT) 217 U/L (10-53); ANION GAP 7 MEQ/L (5-15); AST (GOT) 49 U/L (15-37); BICARBONATE 24.7 MEQ/L (21.0-32.0); BLOOD UREA NITROGEN 9 MG/DL (7-18); CHLORIDE 112 MEQ/L (98-107); GLOMERULAR FILTRATION RATE 325 ML/MIN (>89); MAGNESIUM 2.1 MG/DL (1.5-2.5); POTASSIUM 3.9 MEQ/L (3.5-5.1); SODIUM (NA) 144 MEQ/L (136-145); TOTAL BILIRUBIN ADULT 0.5 MG/DL (0.2-1.0)
[2016-12-21] MEDS: FOSPHENYTOIN INJ 100 MGPE in SODIUM CHLORIDE 0.9% INJ 50 ML IV SCH ×3 (05:22→21:12)
[2016-12-21] MEDS: PROPRANOLOL HCL 10 MG TAB PO SCH ×3 (05:23→21:12)
[2016-12-21] MEDS: INSULIN ASPART SUPPLEMENTAL SCALE SQ SCH ×4 (05:50→18:00)
--- NOTE | 2016-12-21 06:03 | RADRPT ---
EXAM DATE/TIME: 12/21/2016 04:49 [facility] COMPARISON: CHEST SINGLE AP, December 19, 2016, 5:22. INDICATIONS : Shortness of breath, possible pulmonary disease. MEDICAL HISTORY : None. SURGICAL HISTORY : None. ENCOUNTER: Subsequent ACUITY: 1 week PAIN SCORE: Non-responsive. LOCATION: Bilateral chest FINDINGS: Right lung is clear. Endotracheal tube tip terminates at the inferior margin of the clavicles. Right subclavian line tip overlies the SVC. NG tube coiled in the stomach. Streaky left lower lobe airspace disease. CONCLUSION: Left lower lobe airspace disease. Scotty Mederos MD on December 21, 2016 at 6:01 Board Certified Radiologist. This report was verified electronically.
[2016-12-21] MEDS: SODIUM CHLORIDE 0.9% FLUSH 5 ML FLUSH IVF SCH ×2 (07:21→21:12)
[2016-12-21] MEDS: ARTIFICIAL TEARS OPTH OINT 3.5 APPLIC/3.5 GM TUBO EACH EYE SCH ×2 (09:00→21:00)
[2016-12-21] MEDS: DOCUSATE SODIUM 50 MG/SENNA 8.6 MG TAB PO SCH ×2 (09:31→21:12)
[2016-12-21] MEDS: LACTULOSE SYRUP 20 GM/30 ML CUP PO SCH (09:31)
[2016-12-21] MEDS: CHLORHEXIDINE 0.12% (ORAL KIT) 15 ML CUP MT SCH ×2 (09:31→20:00)
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
[2016-12-21] MEDS: PROPOFOL 1000 MG/100 ML INJ 100 ML IV SCH ×2 (12:00→16:28)
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
[2016-12-21] MEDS: PANTOPRAZOLE SODIUM 40 MG VIAL IV SCH (16:28)
[2016-12-22] VITALS (19 sets, daily range): BP systolic 133–157; BP diastolic 72–92; PULSE 90–118; RESP 17–23; TEMP 98.5–101.1; O2SAT 97–100
[2016-12-22] MEDS: ACETAMINOPHEN 1000 MG/100 ML VIAL IV PRN ×2 (00:53→08:06)
[2016-12-22] MEDS: NOREPINEPHRINE INJ 16 MG in SODIUM CHLOR 0.9% 250 ML INJ 234 ML IV SCH (01:29)
[2016-12-22] MEDS: levETIRAcetam INJ 500 MG in SODIUM CHLORIDE 0.9% INJ 100 ML IV SCH ×2 (03:07→15:56)
[2016-12-22 04:02] LABS: BLOOD GAS BASE EXCESS 0.1 mmol/L (-2-2); BLOOD GAS HCO3 24 mmol/L (22-26); BLOOD GAS METHEMOGLOBIN 0.7 % (0-2); BLOOD GAS O2 HGB SATURATION 98 % (90-100); BLOOD GAS OXYGEN CONTENT 16.6 Vol % (12.0-20.0); BLOOD GAS PCO2 35 mmHg (38-42); BLOOD GAS PO2 161 mmHg (61-120); BLOOD GAS TOTAL HGB 11.8 G/DL (12.0-16.0); CRITICAL VALUE NO; OXYGEN DEVICE VENTILATOR; TEMP CORR TO 98.6
[2016-12-22 04:03] LABS: DRAW SITE ART LINE; FIO2 30 %; STAT NO; VENT SETTINGS PRVC/AC
[2016-12-22 04:12] LABS: AUTOMATED NEUTROPHIL # 10.5 TH/MM3 (1.8-7.7); BASOPHIL # 0.1 TH/MM3 (0-0.2); BASOPHIL % 0.6 % (0.0-2.0); EOSINOPHIL # 0.5 TH/MM3 (0-0.4); EOSINOPHIL % 3.5 % (0.0-4.0); HEMATOCRIT 29.7 % (35.0-46.0); LYMPH % 12.5 % (9.0-44.0); LYMPHOCYTE # 1.8 TH/MM3 (1.0-4.8); MEAN CELL VOLUME 85.6 FL (80.0-100.0); MEAN CORPUSCULAR HGB CONC 33.9 % (32.0-36.0); MONO % 8.8 % (0.0-8.0); NEUT % 74.6 % (16.0-70.0); PLATELET COUNT 263 TH/MM3 (150-450); RED BLOOD COUNT 3.47 MIL/MM3 (4.00-5.30); WHITE BLOOD COUNT 14.1 TH/MM3 (4.0-11.0)
[2016-12-22 04:13] LABS: HEMO FLAGS AUTO DIFF
[2016-12-22 04:38] LABS: ALT (GPT) 156 U/L (10-53); ANION GAP 7 MEQ/L (5-15); AST (GOT) 36 U/L (15-37); BICARBONATE 26.6 MEQ/L (21.0-32.0); BLOOD UREA NITROGEN 8 MG/DL (7-18); CHLORIDE 107 MEQ/L (98-107); GLOMERULAR FILTRATION RATE 287 ML/MIN (>89); MAGNESIUM 2.2 MG/DL (1.5-2.5); POTASSIUM 3.7 MEQ/L (3.5-5.1); SODIUM (NA) 141 MEQ/L (136-145)
[2016-12-22 04:40] LABS: ALKALINE PHOSPHATASE 155 U/L (45-117); TOTAL BILIRUBIN ADULT 0.4 MG/DL (0.2-1.0)
--- NOTE | 2016-12-22 05:35 | RADRPT ---
EXAM DATE/TIME: 12/22/2016 04:15 [facility] COMPARISON: CHEST SINGLE AP, December 21, 2016, 4:49. INDICATIONS : Shortness of breath, possible pulmonary disease. MEDICAL HISTORY : None. SURGICAL HISTORY : None. ENCOUNTER: Subsequent ACUITY: 1 week PAIN SCORE: Non-responsive. LOCATION: Bilateral chest FINDINGS: No infiltrate, effusion or pneumothorax seen. Heart size stable, within normal limits. Endotracheal t ube tip is about 3 cm above the jessica. There is nasogastric tube with tip in the stomach. CONCLUSION: No change endotracheal tube or nasogastric tube. Lungs remain clear. Paul Biggs MD on December 22, 2016 at 5:33 Board Certified Radiologist. This report was verified electronically.
[2016-12-22] MEDS: INSULIN ASPART SUPPLEMENTAL SCALE SQ SCH ×4 (05:40→18:00)
[2016-12-22] MEDS: PROPRANOLOL HCL 10 MG TAB PO SCH ×3 (05:49→22:00)
[2016-12-22] MEDS: FOSPHENYTOIN INJ 100 MGPE in SODIUM CHLORIDE 0.9% INJ 50 ML IV SCH (05:50)
[2016-12-22 06:23] LABS: BANDS 45 % (0-6); EOSINOPHILS 4 % (0-4); METAMYELOCYTES 1 % (0-1); NEUTROPHIL # MANUAL DIFF 11.6 TH/MM3 (1.8-7.7); PLASMA CELLS 2 % (0-0); POLYS (SEG NEUTROPHILS) 36 % (16-70); WBC DIFF SAMPLE 100
[2016-12-22 06:24] LABS: PLATELET ESTIMATE SMEAR NORMAL (NORMAL); PLATELET MORPHOLOGY NORMAL (NORMAL); SCAN/DIFF FINAL DIFF MANUAL; TOXIC GRANULATION 1+ (NORMAL)
[2016-12-22] MEDS: SODIUM CHLORIDE 0.9% FLUSH 5 ML FLUSH IVF SCH ×2 (08:06→21:00)
[2016-12-22] MEDS: DOCUSATE SODIUM 50 MG/SENNA 8.6 MG TAB PO SCH ×2 (08:06→21:00)
[2016-12-22] MEDS: LACTULOSE SYRUP 20 GM/30 ML CUP PO SCH (08:06)
[2016-12-22] MEDS: ARTIFICIAL TEARS OPTH OINT 3.5 APPLIC/3.5 GM TUBO EACH EYE SCH ×2 (08:07→21:00)
[2016-12-22] MEDS: CHLORHEXIDINE 0.12% (ORAL KIT) 15 ML CUP MT SCH ×2 (08:07→20:00)
[2016-12-22] MEDS: fentaNYL DRIP 250 ML IV SCH (10:18)
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
--- NOTE | 2016-12-22 11:40 | HHI.PR ---
Neuropsych Emotional Emotional: UnabletoAssess: Emotional, Anxious/Fearful, Depressed/Sad, Hostile/ Resentful, Irritable/Angry/Frustrate, Labile, Constricted/Blunted Behavior Behavior: Unable to Asses: Behavior, Coping/Acceptance, Cooperative w/ Treatment, Motivation, Frustration Tolerance/[place], Impulsive/Agitated, Suicidal/ Homicidal Risk Cognitive Cognitive: Unable to Asses: Cognitive, Attention/Concentration, Confused/ Orientation, Insight/Awareness, Judgement/Problem-Solving, Memory Psychosocial Psychosocial: Intact: Psychosocial, Family/Other Adjustment, Moderate: Realistic Expectation Progress Notes/Response to Tx Contents of Sessions: Level of Consciousness Time with Patient: 30 minutes Premorbid psychological status Premorbid Cognitive, Emotional and Behavioral Status: Stable. 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 The patient has no prior psychiatric difficulties, as described above. Substance abuse history is unremarkable. She is , and her is a [facility]. Behavioral Reactions of Patient and Family/Support System: Tenuous. The patients family is experiencing ongoing issues of adjustment given the nature of the injury, and this aspect of recovery will require ongoing monitoring. Emotional/Behavioral Status of Patient and Family/Support System: Tenuous. Pertinent issues, if appropriate to this patients clinical care, are described in detail above. Maximizing acute care outcome This patient is very early into her recovery from her sustained traumatic brain injury, and presently medical recovery takes precedence over neurobehavioral recovery. As she improves, it is recommended that the patient be monitored for emergent behavioral impulsivity. This patients neuropathological challenges may limit their rehabilitation potential going forward, and these challenges will require specialized therapeutic skills to maximize outcome. Additionally, the patients family is experiencing ongoing issues of adjustment given the traumatic nature of the injury, and they will need ongoing psychological assistance, which I will provide. Anticipated Problems Presently, the most pressing concern is her medical recovery. As she progresses , ongoing areas of concern will likely include behavioral impulsivity, lack of insight and judgment, which is expected to improve with time and treatment. Presently, the patient in coma, unresponsive and sedated. Treatment Plan This clinician will continue to follow with you throughout the course of this patients rehabilitation treatment, and I will be available to meet with the patients family/support system to facilitate their understanding and the ongoing care of their family member. The goals of neuropsychological intervention shall be both educational and supportive to the family/support system as is deemed clinically appropriate. [facility] Level: I:No response-total assistance Impression This patient suffered a severe traumatic brain injury, with the likely probability of persistent neurocognitive impairment, depending on multiple medical factors. Diagnosis: (1) Major neurocognitive disorder as late effect of traumatic brain injury without behavioral disturbance Status: Acute Progress Note Narrative Ongoing follow-up of patient, which included observations of patient undergoing a "sedation vacation" during which she opened her eyes, did not track nor did she respond to verbal commands. Reportedly, her left pupil was more sluggish to respond than her right, and she exhibited some decorticate posturing to painful sensation. A concern as she progresses includes to what extent her understanding and utilization of language has been affected by the brain trauma , and thus she may not be able to appropriately respond to commands due to aphasic issues. I provided ongoing resources and support to the patient's and mother, again counseling them that her recovery is going to be long , and we do not know the precise outcome, although we are confident that she will have residual neurocognitive and neurobehavioral issues from these injuries , and in all likelihood, severe. However, again at this point, the focus of her recovery is physical, not neurocognitive. I will continue to follow with you. Elver Cook PhD Dec 22, 2016 11:40 am
[2016-12-22] MEDS: PROPOFOL 1000 MG/100 ML INJ 100 ML IV SCH (15:56)
[2016-12-22] MEDS: PANTOPRAZOLE SODIUM 40 MG VIAL IV SCH (15:56)
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
[2016-12-22] MEDS: IBUPROFEN SUSP 100 MG/5 ML UDC PO PRN (18:57)
[2016-12-22] MEDS ORDERED: NOREPINEPHRINE 4 MG/4 ML AMP ONE (20:47)
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
[2016-12-22] MEDS ORDERED: NOREPINEPHRINE 4 MG/D5W 250 ML IV SCH (22:45)
[2016-12-22] MEDS: SODIUM CHLOR 0.9% 1000 ML INJ 1,000 ML IV SCH (22:45)
[2016-12-23] VITALS (20 sets, daily range): BP systolic 113–166; BP diastolic 58–93; PULSE 106–136; RESP 18–24; TEMP 98–101; O2SAT 98–100
--- NOTE | 2016-12-23 03:09 | RADRPT ---
EXAM DATE/TIME: 12/23/2016 02:03 [facility] COMPARISON: CHEST SINGLE AP, December 22, 2016, 4:15. INDICATIONS : Short of breath. MEDICAL HISTORY : None. SURGICAL HISTORY : Craniotomy. ENCOUNTER: Subsequent ACUITY: 1 week PAIN SCORE: Non-responsive. LOCATION: Bilateral chest FINDINGS: Lungs remain reasonably clear. No pleural effusion seen. No pneumothorax. Heart size stable, within n ormal limits. Endotracheal tube tip is about 4 cm above the jessica. There is a nasogastric tube coursing into the s tomach. There is a right subclavian central venous catheter are again seen, tip in the superior vena cava. CONCLUSION: No change. Paul Biggs MD on December 23, 2016 at 3:07 Board Certified Radiologist. This report was verified electronically.
[2016-12-23] MEDS: levETIRAcetam INJ 500 MG in SODIUM CHLORIDE 0.9% INJ 100 ML IV SCH ×2 (03:18→15:08)
[2016-12-23] MEDS ORDERED: BROMOCRIPTINE MESYLATE 2.5 MG TAB PO ONE (04:15)
[2016-12-23 04:32] LABS: BLOOD GAS CARBOXYHEMOGLOBIN 1.2 % (0-4); BLOOD GAS HCO3 25 mmol/L (22-26); BLOOD GAS METHEMOGLOBIN 0.7 % (0-2); BLOOD GAS O2 HGB SATURATION 96 % (90-100); BLOOD GAS OXYGEN CONTENT 13.8 Vol % (12.0-20.0); BLOOD GAS PCO2 37 mmHg (38-42); BLOOD GAS PO2 115 mmHg (61-120); CRITICAL VALUE NO; OXYGEN DEVICE VENTILATOR; TEMP CORR TO 98.6
[2016-12-23 04:33] LABS: DRAW SITE ART LINE; FIO2 30 %; STAT NO
[2016-12-23] MEDS ORDERED: EPINEPHrine HCL (1:10,000) 1 MG/10 ML SYRINGE ONE (04:46)
[2016-12-23] MEDS ORDERED: LIDOCAINE HCL 2% 100 MG/5 ML SYRINGE ONE (04:47)
[2016-12-23] MEDS ORDERED: ATROPINE SULFATE 1 MG/10 ML SYRINGE ONE (04:47)
[2016-12-23 05:24] LABS: AUTOMATED NEUTROPHIL # 14.1 TH/MM3 (1.8-7.7); BASOPHIL # 0.1 TH/MM3 (0-0.2); BASOPHIL % 0.5 % (0.0-2.0); EOSINOPHIL # 0.7 TH/MM3 (0-0.4); EOSINOPHIL % 3.5 % (0.0-4.0); HEMATOCRIT 29.5 % (35.0-46.0); LYMPH % 11.2 % (9.0-44.0); LYMPHOCYTE # 2.1 TH/MM3 (1.0-4.8); MEAN CELL VOLUME 84.6 FL (80.0-100.0); MEAN CORPUSCULAR HEMOGLOBIN 28.8 PG (27.0-34.0); MEAN CORPUSCULAR HGB CONC 34.1 % (32.0-36.0); MONO % 8.8 % (0.0-8.0); PLATELET COUNT 329 TH/MM3 (150-450); RED BLOOD COUNT 3.49 MIL/MM3 (4.00-5.30); RED CELL DISTRIBUTION WIDTH 14.1 % (11.6-17.2); WHITE BLOOD COUNT 18.6 TH/MM3 (4.0-11.0)
[2016-12-23 05:29] LABS: HEMO FLAGS AUTO DIFF
[2016-12-23 05:59] LABS: ALT (GPT) 129 U/L (10-53); ANION GAP 7 MEQ/L (5-15); AST (GOT) 37 U/L (15-37); BICARBONATE 25.8 MEQ/L (21.0-32.0); BLOOD UREA NITROGEN 11 MG/DL (7-18); CHLORIDE 107 MEQ/L (98-107); GLOMERULAR FILTRATION RATE 247 ML/MIN (>89); MAGNESIUM 2.1 MG/DL (1.5-2.5); POTASSIUM 3.8 MEQ/L (3.5-5.1); SODIUM (NA) 140 MEQ/L (136-145)
[2016-12-23 06:00] LABS: ALKALINE PHOSPHATASE 254 U/L (45-117); TOTAL BILIRUBIN ADULT 0.4 MG/DL (0.2-1.0)
[2016-12-23] MEDS: PROPRANOLOL HCL 10 MG TAB PO SCH ×3 (06:00→21:07)
[2016-12-23] MEDS: INSULIN ASPART SUPPLEMENTAL SCALE SQ SCH ×4 (06:00→18:00)
--- NOTE | 2016-12-23 06:08 | RADRPT ---
EXAM DATE/TIME: 12/23/2016 05:37 [facility] COMPARISON: CT BRAIN W/O CONTRAST, December 17, 2016, 8:49. INDICATIONS : Follow up hemorrhage. RADIATION DOSE: 37.29 CTDIvol (mGy) MEDICAL HISTORY : None SURGICAL HISTORY : Craniotomy. ENCOUNTER: Subsequent ACUITY: 1 week PAIN SCALE: Non-responsive LOCATION: cranial TECHNIQUE: Multiple contiguous axial images were obtained of the head. Using automated exposure control and adj ustment of the mA and/or kV according to patient size, radiation dose was kept as low as reasonably a chievable to obtain optimal diagnostic quality images. FINDINGS: Left frontal craniotomy defect again noted with herniated brain. There is diffuse cerebral edema. Abo ut 6.5 mm of leftward midline shift is currently present, about the same. Subdural blood immature in the leaves of the posterior falx and layering on the tentorium again noted, not significantly changed. There is small blood dependently in the posterior horns of both lat eral ventricles, also not significantly changed. Ventriculostomy catheter again noted. There is no ve ntriculomegaly. No mass lesion or evidence of an acute ischemic event. CONCLUSION: 1. Status post left craniotomy with herniated brain and about 6.5 mm of leftward midline shift, simil ar to before. 2. Also similar amountzs of small intraventricular, modesta-falcine and tentorial subacute hemorrhage. N o new hemorrhage seen. Paul Biggs MD on December 23, 2016 at 5:59 Board Certified Radiologist. This report was verified electronically.
[2016-12-23] MEDS: BROMOCRIPTINE MESYLATE 2.5 MG TAB PO SCH ×2 (08:05→21:00)
[2016-12-23] MEDS: DOCUSATE SODIUM 50 MG/SENNA 8.6 MG TAB PO SCH ×2 (08:05→20:16)
[2016-12-23] MEDS: ACETAMINOPHEN 1000 MG/100 ML VIAL IV PRN ×2 (08:05→20:40)
[2016-12-23] MEDS: SODIUM CHLORIDE 0.9% FLUSH 5 ML FLUSH IVF SCH ×2 (08:05→20:18)
[2016-12-23] MEDS: LACTULOSE SYRUP 20 GM/30 ML CUP PO SCH (08:05)
[2016-12-23] MEDS: ARTIFICIAL TEARS OPTH OINT 3.5 APPLIC/3.5 GM TUBO EACH EYE SCH ×2 (08:06→20:17)
[2016-12-23] MEDS: CHLORHEXIDINE 0.12% (ORAL KIT) 15 ML CUP MT SCH ×2 (08:06→20:00)
[2016-12-23 08:12] LABS: BANDS 1 % (0-6); EOSINOPHILS 3 % (0-4); METAMYELOCYTES 1 % (0-1); NEUTROPHIL # MANUAL DIFF 14.9 TH/MM3 (1.8-7.7); PLATELET ESTIMATE SMEAR NORMAL (NORMAL); PLATELET MORPHOLOGY NORMAL (NORMAL); POLYS (SEG NEUTROPHILS) 78 % (16-70); SCAN/DIFF FINAL DIFF MANUAL; WBC DIFF SAMPLE 100
[2016-12-23] MEDS ORDERED: TERBUTALINE INJ 1 MG/ML AMP SQ PRN ×3 (08:45→23:15)
[2016-12-23] MEDS ORDERED: PHENYLEPHRINE INJ 80 MG in SODIUM CHLORID 0.9% 500 ML INJ 492 ML IV SCH (09:00)
[2016-12-23] MEDS ORDERED: MIDAZOLAM HCL 2 MG/2 ML VIAL IV ONE (09:00)
[2016-12-23] MEDS ORDERED: FOSPHENYTOIN SODIUM 100 MG PE/2 ML VIAL IV SCH (09:00)
[2016-12-23] MEDS: MIDAZOLAM 100 MG/ML INJ 100 ML IV SCH (09:12)
[2016-12-23] MEDS ORDERED: ALBUMIN HUMAN 5% 25 GM/500 ML BOTTLE IV ONE ×2 (09:30→10:00)
[2016-12-23] MEDS ORDERED: SODIUM CHLOR 0.9% 250 ML INJ 250 ML ONE ×2 (09:36→10:31)
[2016-12-23] MEDS ORDERED: NOREPINEPHRINE 4 MG/4 ML AMP ONE (09:37)
[2016-12-23] MEDS: PROPOFOL 1000 MG/100 ML INJ 100 ML IV SCH (09:39)
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
--- NOTE | 2016-12-23 12:47 | HHI.PR ---
Neuropsych Emotional Emotional: UnabletoAssess: Emotional, Anxious/Fearful, Depressed/Sad, Hostile/ Resentful, Irritable/Angry/Frustrate, Labile, Constricted/Blunted Behavior Behavior: Unable to Asses: Behavior, Coping/Acceptance, Cooperative w/ Treatment, Motivation, Frustration Tolerance/[place], Impulsive/Agitated, Suicidal/ Homicidal Risk Cognitive Cognitive: Unable to Asses: Cognitive, Attention/Concentration, Confused/ Orientation, Insight/Awareness, Judgement/Problem-Solving, Memory Progress Notes/Response to Tx Contents of Sessions: Level of Consciousness Time with Patient: 15 minutes Premorbid psychological status Premorbid Cognitive, Emotional and Behavioral Status: Stable. 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 The patient has no prior psychiatric difficulties, as described above. Substance abuse history is unremarkable. She is , and [facility]. Behavioral Reactions of Patient and Family/Support System: Tenuous. The patients family is experiencing ongoing issues of adjustment given the nature of the injury, and this aspect of recovery will require ongoing monitoring. Emotional/Behavioral Status of Patient and Family/Support System: Tenuous. Pertinent issues, if appropriate to this patients clinical care, are described in detail above. Maximizing acute care outcome This patient is very early into her recovery from her sustained traumatic brain injury, and presently medical recovery takes precedence over neurobehavioral recovery. As she improves, it is recommended that the patient be monitored for emergent behavioral impulsivity. This patients neuropathological challenges may limit their rehabilitation potential going forward, and these challenges will require specialized therapeutic skills to maximize outcome. Additionally, the patients family is experiencing ongoing issues of adjustment given the traumatic nature of the injury, and they will need ongoing psychological assistance, which I will provide. Anticipated Problems Presently, the most pressing concern is her medical recovery. As she progresses , ongoing areas of concern will likely include behavioral impulsivity, lack of insight and judgment, which is expected to improve with time and treatment. Presently, the patient in coma, unresponsive and sedated. Treatment Plan This clinician will continue to follow with you throughout the course of this patients rehabilitation treatment, and I will be available to meet with the patients family/support system to facilitate their understanding and the ongoing care of their family member. The goals of neuropsychological intervention shall be both educational and supportive to the family/support system as is deemed clinically appropriate. [facility] Level: I:No response-total assistance Impression This patient suffered a severe traumatic brain injury, with the likely probability of persistent neurocognitive impairment, depending on multiple medical factors. Diagnosis: (1) Major neurocognitive disorder as late effect of traumatic brain injury without behavioral disturbance Status: Acute Progress Note Narrative Ongoing follow-up of patient within the context of daily trauma rounding. Discussed current status with patient's , answered questions to the limits of my clinical competence. Again stressed that this patient sustained a severe brain injury, and that the primary focus now is on her medical stabilization. I will continue to follow with you. Elver Cook PhD Dec 23, 2016 12:47 pm
[2016-12-23] MEDS ORDERED: NOREPINEPHRINE-DEXTROSE DRIP 250 ML IV SCH (13:00)
[2016-12-23] MEDS: FOSPHENYTOIN INJ 100 MGPE in SODIUM CHLORIDE 0.9% INJ 50 ML IV SCH ×2 (14:01→23:12)
[2016-12-23] MEDS: SODIUM CHLOR 0.9% 1000 ML INJ 1,000 ML IV SCH (15:08)
[2016-12-23] MEDS: PANTOPRAZOLE SODIUM 40 MG VIAL IV SCH (15:09)
[2016-12-23] MEDS: IBUPROFEN SUSP 100 MG/5 ML UDC PO PRN (15:09)
--- NOTE | 2016-12-23 15:20 | MG ---
cc: MUNIR RODRIGEZ M.D. Lab No: [id number] Date: 12/23/2016 Age: 21 Sex: F Race: __ TECHNIQUE 17 channel EEG. DESCRIPTION Background rhythm is generally slow in the delta frequency roughly 3-4 Hz. Amplitude is about 20-30 microvolts. Muscle artifact is identified. There are no epileptic features seen. There are no lateralizing features. Photic stimulation results in a poor driving response. INTERPRETATION Abnormal study consistent with a moderate to severe encephalopathic state. MD TABBY Howe/SHIRA /3:09 PM /3:17 PM
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
[2016-12-23] MEDS ORDERED: NOREPINEPHRINE-DEXTROSE DRIP 250 ML IV PRN (23:15)
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
[2016-12-24] VITALS (18 sets, daily range): BP systolic 120–158; BP diastolic 60–88; PULSE 120–140; RESP 20–29; TEMP 98.7–100.8; O2SAT 97–100
[2016-12-24] MEDS: MIDAZOLAM 100 MG/ML INJ 100 ML IV SCH ×2 (00:12→16:41)
[2016-12-24] MEDS: IBUPROFEN SUSP 100 MG/5 ML UDC PO PRN (01:00)
[2016-12-24] MEDS: MORPHINE SULFATE 4 MG/ML INJ IV PUSH PRN (01:27)
[2016-12-24] MEDS: SODIUM CHLOR 0.9% 1000 ML INJ 1,000 ML IV SCH ×3 (01:35→21:35)
[2016-12-24] MEDS: fentaNYL DRIP 250 ML IV SCH ×2 (01:55→22:16)
[2016-12-24] MEDS: levETIRAcetam INJ 500 MG in SODIUM CHLORIDE 0.9% INJ 100 ML IV SCH ×2 (04:40→16:21)
[2016-12-24] MEDS: PROPRANOLOL HCL 10 MG TAB PO SCH ×3 (05:21→23:07)
[2016-12-24 05:46] LABS: BLOOD GAS BASE EXCESS 0.3 mmol/L (-2-2); BLOOD GAS CARBOXYHEMOGLOBIN 1.4 % (0-4); BLOOD GAS HCO3 24 mmol/L (22-26); BLOOD GAS METHEMOGLOBIN 0.6 % (0-2); BLOOD GAS O2 HGB SATURATION 94 % (90-100); BLOOD GAS OXYGEN CONTENT 12.6 Vol % (12.0-20.0); BLOOD GAS PCO2 34 mmHg (38-42); BLOOD GAS PO2 77 mmHg (61-120); BLOOD GAS TOTAL HGB 9.5 G/DL (12.0-16.0); CRITICAL VALUE NO; DRAW SITE ART LINE; FIO2 30 %; OXYGEN DEVICE VENTILATOR; STAT NO; TEMP CORR TO 98.6
[2016-12-24] MEDS: INSULIN ASPART SUPPLEMENTAL SCALE SQ SCH ×4 (06:00→18:00)
[2016-12-24] MEDS: ACETAMINOPHEN 325 MG/10.15 ML UDC NG PRN (06:28)
[2016-12-24 06:50] LABS: MEAN CELL VOLUME 85.2 FL (80.0-100.0); MEAN CORPUSCULAR HEMOGLOBIN 28.4 PG (27.0-34.0); MEAN CORPUSCULAR HGB CONC 33.3 % (32.0-36.0); PLATELET COUNT 298 TH/MM3 (150-450); RED BLOOD COUNT 3.16 MIL/MM3 (4.00-5.30); RED CELL DISTRIBUTION WIDTH 13.9 % (11.6-17.2); REVIEW FLAG FINAL; WHITE BLOOD COUNT 26.5 TH/MM3 (4.0-11.0)
[2016-12-24 07:18] LABS: BICARBONATE 26.2 MEQ/L (21.0-32.0); MAGNESIUM 2.1 MG/DL (1.5-2.5); POTASSIUM 3.8 MEQ/L (3.5-5.1)
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
[2016-12-24] MEDS: CHLORHEXIDINE 0.12% (ORAL KIT) 15 ML CUP MT SCH ×2 (08:16→20:00)
[2016-12-24] MEDS: ARTIFICIAL TEARS OPTH OINT 3.5 APPLIC/3.5 GM TUBO EACH EYE SCH ×2 (09:00→21:00)
[2016-12-24] MEDS: SODIUM PHOSPHATE INJ 30 MMOL in SODIUM CHLOR 0.9% 250 ML INJ 240 ML IV PRN (09:14)
[2016-12-24] MEDS: BROMOCRIPTINE MESYLATE 2.5 MG TAB PO SCH ×2 (09:14→21:00)
[2016-12-24] MEDS: LACTULOSE SYRUP 20 GM/30 ML CUP PO SCH (09:14)
[2016-12-24] MEDS: DOCUSATE SODIUM 50 MG/SENNA 8.6 MG TAB PO SCH ×2 (09:14→23:20)
[2016-12-24] MEDS: SODIUM CHLORIDE 0.9% FLUSH 5 ML FLUSH IVF SCH ×2 (09:14→21:00)
[2016-12-24] MEDS ORDERED: Vancomycin Consult Pharmacy 1 EA OTHER SCH (09:45)
[2016-12-24] MEDS ORDERED: LEVOFLOXACIN 500 MG PREMIX INJ 100 ML IV SCH (10:00)
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
[2016-12-24] MEDS: LEVOFLOXACIN 750 MG PREMIX INJ 150 ML IV SCH (11:00)
[2016-12-24] MEDS: VANCOMYCIN INJ 1,000 MG in SODIUM CHLOR 0.9% 250 ML INJ 250 ML IV SCH ×2 (11:20→23:07)
--- NOTE | 2016-12-24 11:32 | HHI.PR ---
Neuropsych Emotional Emotional: UnabletoAssess: Emotional, Anxious/Fearful, Depressed/Sad, Hostile/ Resentful, Irritable/Angry/Frustrate, Labile, Constricted/Blunted Behavior Behavior: Unable to Asses: Behavior, Coping/Acceptance, Cooperative w/ Treatment, Motivation, Frustration Tolerance/Swain, Impulsive/Agitated, Suicidal/ Homicidal Risk Cognitive Cognitive: Unable to Asses: Cognitive, Attention/Concentration, Confused/ Orientation, Insight/Awareness, Judgement/Problem-Solving, Memory Psychosocial Psychosocial: Intact: Psychosocial, Family/Other Adjustment, Moderate: Realistic Expectation Progress Notes/Response to Tx Contents of Sessions: Adjustment, Level of Consciousness Time with Patient: 15 minutes Premorbid psychological status Premorbid Cognitive, Emotional and Behavioral Status: Stable. 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 The patient has no prior psychiatric difficulties, as described above. Substance abuse history is unremarkable. She is , and her is a [facility] sheriff. Behavioral Reactions of Patient and Family/Support System: Tenuous. The patients family is experiencing ongoing issues of adjustment given the nature of the injury, and this aspect of recovery will require ongoing monitoring. Emotional/Behavioral Status of Patient and Family/Support System: Tenuous. Pertinent issues, if appropriate to this patients clinical care, are described in detail above. Maximizing acute care outcome This patient is very early into her recovery from her sustained traumatic brain injury, and presently medical recovery takes precedence over neurobehavioral recovery. As she improves, it is recommended that the patient be monitored for emergent behavioral impulsivity. This patients neuropathological challenges may limit their rehabilitation potential going forward, and these challenges will require specialized therapeutic skills to maximize outcome. Additionally, the patients family is experiencing ongoing issues of adjustment given the traumatic nature of the injury, and they will need ongoing psychological assistance, which I will provide. Anticipated Problems Presently, the most pressing concern is her medical recovery. As she progresses , ongoing areas of concern will likely include behavioral impulsivity, lack of insight and judgment, which is expected to improve with time and treatment. Presently, the patient in coma, unresponsive and sedated. Treatment Plan This clinician will continue to follow with you throughout the course of this patients rehabilitation treatment, and I will be available to meet with the patients family/support system to facilitate their understanding and the ongoing care of their family member. The goals of neuropsychological intervention shall be both educational and supportive to the family/support system as is deemed clinically appropriate. [facility] Level: I:No response-total assistance Impression This patient suffered a severe traumatic brain injury, with the likely probability of persistent neurocognitive impairment, depending on multiple medical factors. Diagnosis: (1) Major neurocognitive disorder as late effect of traumatic brain injury without behavioral disturbance Status: Acute Progress Note Narrative Ongoing follow-up of patient within the context of daily trauma rounds. From a neurobehavioral standpoint, there has been minimal changes. I met briefly with the family to provide psychosocial support. I will continue to follow. Elver Cook PhD Dec 24, 2016 11:32 am
[2016-12-24 11:34] LABS: BACTERIA, URINE OCC /hpf; BLOOD, URINE NEG (NEG); GLUCOSE,URINE NEG (NEG); KETONE, URINE NEG (NEG); MUCUS URINE FEW /lpf (OCC); NITRITE,URINE NEG (NEG); URINE COLOR YELLOW (YELLW/STRAW)
[2016-12-24] MEDS: CEFEPIME INJ 2,000 MG in SODIUM CHLORIDE 0.9% INJ 100 ML IV SCH (13:04)
[2016-12-24] MEDS ORDERED: ROCURONIUM INJ 50 MG/5 ML VIAL ONE (14:05)
--- NOTE | 2016-12-24 15:36 | RADRPT ---
EXAM DATE/TIME: 12/24/2016 13:43 [facility] COMPARISON: CT ABDOMEN & PELVIS W CONTRAST, December 15, 2016, 8:11. INDICATIONS : Fever, elevated liver function tests. MEDICAL HISTORY : Left subdural hematoma. Liver laceration grade 3. Comminuted pelvic fracture. Hemorrhagic shock. SURGICAL HISTORY : Trauma surgery. ENCOUNTER: Initial ACUITY: 1 day PAIN SCORE: Nonresponsive. LOCATION: Right upper quadrant MEASUREMENTS: LIVER: 16.5 cm length COMMON DUCT: 4 mm RIGHT KIDNEY: 11.1 x 5.6 x 6.0 cm FINDINGS: The visualized portion of the pancreas is unremarkable. The gallbladder is normal without wall thicke juvenal or pericholecystic fluid. There is a small amount of fluid in the hepatorenal fossa. There is li near echogenicity in the liver consisted with a history of liver laceration. No free fluid is identif ied. CONCLUSION: 1. No evidence of cholelithiasis or ductal dilatation. Hepatic contusion right lobe of the liver appe ar smaller than prior CT. Wander Brooke MD on December 24, 2016 at 15:32 Board Certified Radiologist. This report was verified electronically.
[2016-12-24] MEDS: PANTOPRAZOLE SODIUM 40 MG VIAL IV SCH (16:21)
--- NOTE | 2016-12-24 17:00 | PD.PROCEDR ---
Procedure Note Procedure Procedure: Diagnostic Fiberoptic Bronchoscopy Diagnosis: Acute on chronic respiratory failure Indications: Chronic respiratory failure requiring percutaneous tracheostomy Consent: Written consent was obtained Anesthesia: Versed IV, fentanyl IV, Rocuronium Description of the Procedure: The patient was sedated and mechanically ventilated. The patient was placed on 100% FIO2 and a volume control mode of ventilation. The fiberoptic bronchoscopy was inserted via endotracheal tube. The trachea, right and left mainstem bronchi, and sub-segmental bronchi were evaluated. The endobronchial anatomy was normal. Findings: Under direct real-time bronchoscopic visualization, the needle, guidewire, and percutaneous tracheostomy were performed. Please see separate procedure note for tracheostomy details. When the tracheostomy was in place, the bronchoscope was inserted down the tracheostomy and the lumen of the tracheostomy was confirmed within the lumen of the trachea prior to any positive pressure ventilation. Additionally, there was noted to be significant purulent secretions both in the right lower and left lower lobe. These were aggressively suctioned and BAL samples were sent. BAL samples: Right lower lobe, left lower lobe. The patient tolerated the procedure well with no hemodynamic instability or hypoxia. Specifically, her ICP never daniel above 3. There were no immediate complications noted. At the conclusion of the procedure, the patient was placed back on their pre-procedure ventilatory settings. There was minimal EBL. A chest x-ray has been ordered. I personally performed the procedure. Heri Salamanca MD Dec 24, 2016 17:00
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
--- NOTE | 2016-12-24 18:33 | PD.PROCEDR ---
Procedure Note Procedure Procedure: Arterial Line Placement Left radial arterial line Diagnosis: Multitrauma Indications: [id number] hemodynamic monitoring Consent: Verbal consent was obtained Description of the Procedure: The left wrist was prepped and draped sterilely. 1% lidocaine was used for local anesthesia. The pulse was located and a needle was advanced into the artery. A 20 gauge, 12 cm catheter was advanced into the artery using a modified Seldinger technique. The catheter was sutured to the skin and a sterile dressing was applied. The catheter was connected to a pressure transducer and an arterial waveform was noted. There were no immediate complications noted. There was minimal EBL. I personally performed the procedure. Heri Salamanca MD Dec 24, 2016 18:33
--- NOTE | 2016-12-24 18:55 | RADRPT ---
EXAM DATE/TIME: 12/24/2016 18:29 [facility] COMPARISON: CHEST SINGLE AP, December 24, 2016, 6:25. INDICATIONS : Central line placement MEDICAL HISTORY : None. SURGICAL HISTORY : None. ENCOUNTER: Initial ACUITY: 1 day PAIN SCORE: Non-responsive. LOCATION: Bilateral chest FINDINGS: A single view of the chest demonstrates minimal left perihilar densities. Tracheostomy tube with tip 3 cm above the jessica. Bilateral subclavian central lines with tip in the SVC. Right jugular central line with tip in the SVC. Wire is still within the jugular line. No pneumothorax on the right however there is a pneumothorax on the left measuring 8 mm laterally. A pneumothorax is seen more prominent along the lower hemithorax. The cardiomediastinal contours are unremarkable. Osseous structures are intact. CONCLUSION: 1. Right jugular central line with tip in good position. The wire is still in place and needs to be w ithdrawn. 2. Left subclavian central line with tip in good position. There is a left-sided pneumothorax measuri ng 8 mm of pleural separation. Nilson Ambrosio MD on December 24, 2016 at 18:52 Board Certified Radiologist. This report was verified electronically.
--- NOTE | 2016-12-24 18:57 | RADRPT ---
EXAM DATE/TIME: 12/24/2016 18:34 [facility] COMPARISON: No previous studies available for comparison. INDICATIONS : NG tube placement MEDICAL HISTORY : None. SURGICAL HISTORY : None. ENCOUNTER: Initial ACUITY: 1 day PAIN SCORE: Non-responsive. LOCATION: Left upper quadrant FINDINGS: Examination of the abdomen demonstrates a normal bowel gas pattern. Feeding tube with tip in stomach. No free air is identified. No organomegaly is evident. Osseous structures are intact. Postsurgical changes. CONCLUSION: No evidence of obstruction. Feeding tube with tip in stomach. Nilson Ambrosio MD on December 24, 2016 at 18:54 Board Certified Radiologist. This report was verified electronically.
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
--- NOTE | 2016-12-24 22:19 | RADRPT ---
EXAM DATE/TIME: 12/24/2016 22:09 [facility] COMPARISON: No previous studies available for comparison. INDICATIONS : Status post chest tube placement. MEDICAL HISTORY : None. SURGICAL HISTORY : None. ENCOUNTER: Subsequent ACUITY: 1 day PAIN SCORE: Non-responsive. LOCATION: chest FINDINGS: A single view of the chest demonstrates the lungs to be symmetrically aerated without evidence of mas s, infiltrate or effusion. Left-sided chest tube placement. No pneumothorax. Subcutaneous emphysema. Tracheostomy tube, nasogastric tube and bilateral subclavian central lines are stable position. The cardiomediastinal contours are unremarkable. Osseous structures are intact. CONCLUSION: Left-sided chest tube without pneumothorax. Nilson Ambrosio MD on December 24, 2016 at 22:17 Board Certified Radiologist. This report was verified electronically.
--- NOTE | 2016-12-24 23:26 | PD.PROCEDR ---
Procedure Note Procedure THORACOSTOMY (CHEST TUBE) PLACEMENT Date: 12/24/16 Time: 2100 Indication: Pneumothorax A time-out was completed verifying correct patient, procedure, site, positioning , and special equipment if applicable. The patient was positioned appropriately for chest tube placement. The patients right chest was prepped and draped in sterile fashion. 1% Lidocaine was used to anesthetize the surrounding skin area. A 0.5 cm skin incision was made in the mid-axillary line at the inframammarycrease. Utilizing blunt dissection a subcutaneous tunnel was created cephalad just adjacent to the superior rib. The pleural space was entered with a finder needle and gush of air was observed. 8Fr pigtail thoracostomy catheter was inserted using a Seldinger technique . The chest tube was sutured securely to the skin and a sterile dressing applied. A pleurevac was attached to the chest tube and a chest x-ray obtained. Estimated Blood Loss: 1 ml The patient tolerated the procedure well and there were no complications. Kristian Singleton MD Dec 24, 2016 23:26
[2016-12-25] VITALS (21 sets, daily range): BP systolic 111–154; BP diastolic 53–78; PULSE 101–127; RESP 12–25; TEMP 99.9–101.1; O2SAT 100
[2016-12-25] MEDS: CEFEPIME INJ 2,000 MG in SODIUM CHLORIDE 0.9% INJ 100 ML IV SCH ×3 (00:17→23:32)
[2016-12-25] MEDS ORDERED: LIDOCAINE HCL 2% 100 MG/5 ML SYRINGE ONE (03:10)
[2016-12-25] MEDS ORDERED: ATROPINE SULFATE 1 MG/10 ML SYRINGE ONE (03:10)
[2016-12-25] MEDS ORDERED: EPINEPHrine HCL (1:10,000) 1 MG/10 ML SYRINGE ONE (03:10)
[2016-12-25] MEDS ORDERED: IOHEXOL 350 MG/ML 10 ML VIAL (for RAD DIAG) IV ONE (03:43)
--- NOTE | 2016-12-25 04:19 | RADRPT ---
EXAM DATE/TIME: 12/25/2016 03:39 [facility] COMPARISON: CT ABDOMEN & PELVIS W CONTRAST, December 15, 2016, 8:11. INDICATIONS : Follow up liver laceration. IV CONTRAST: 75 cc Omnipaque 350 (iohexol) IV ORAL CONTRAST: No oral contrast ingested. RADIATION DOSE: 7.12 CTDIvol (mGy) MEDICAL HISTORY : Non-responsive. SURGICAL HISTORY : Non-responsive. ENCOUNTER: Subsequent ACUITY: 2 weeks PAIN SCALE: Non-responsive LOCATION: abdomen TECHNIQUE: Volumetric scanning of the abdomen and pelvis was performed. Using automated exposure control and ad justment of the mA and/or kV according to patient size, radiation dose was kept as low as reasonably achievable to obtain optimal diagnostic quality images. FINDINGS: LOWER LUNGS: There is patchy consolidation seen at both lung bases. A small caliber left chest tube noted and ther e is a small anterior left pneumothorax. LIVER: Stellate subcutaneous laceration seen in the posterior segment of the right hepatic lobe, measures ab out 3.4 x 6.2 x 5.3 cm, smaller and becoming less conspicuous in the interim. No active bleeding is d emonstrated. SPLEEN: Normal size without lesion. PANCREAS: Within normal limits. KIDNEYS: Normal in size and shape. There is no mass, stone or hydronephrosis. ADRENAL GLANDS: Within normal limits. VASCULAR: There is no aortic aneurysm. BOWEL/MESENTERY: The stomach, small bowel, and colon demonstrate no acute abnormality. There is small low attenuation free fluid in the pelvic cavity.. There is a feeding tube coiled in the stomach. The tip is in the di stal body. ABDOMINAL WALL: Intra-midline laparotomy. RETROPERITONEUM: There is no lymphadenopathy. BLADDER: No wall thickening or mass. REPRODUCTIVE: Within normal limits. INGUINAL: There is no lymphadenopathy or hernia. MUSCULOSKELETAL: Subacut bilateral pubic rami fractures are again noted. No acute bony abnormality seen. CONCLUSION: 1. Healing liver laceration of the posterior right hepatic lobe. No active bleeding. 2. Small nonspecific low attenuation free fluid in the pelvic cavity. 3. No obstruction or inflammatory changes are demonstrated of the GI tract. 4. Patient has had midline laparotomy since the comparison trauma CT. 5. There is patchy consolidation of both visualized lung bases. Tiny left pneumothorax is also visibl e. 6. The Dobbhoff feeding tube is coiled in the stomach. Tip is pointing downward and to the right in t he distal body. 7. Subacute bilateral pubic ramus fractures without significant healing seen as of yet. Paul Biggs MD on December 25, 2016 at 4:11 Board Certified Radiologist. This report was verified electronically.
[2016-12-25] MEDS: levETIRAcetam INJ 500 MG in SODIUM CHLORIDE 0.9% INJ 100 ML IV SCH ×2 (04:22→15:38)
[2016-12-25 05:15] LABS: BLOOD GAS BASE EXCESS 0.7 mmol/L (-2-2); BLOOD GAS CARBOXYHEMOGLOBIN 1.2 % (0-4); BLOOD GAS HCO3 24 mmol/L (22-26); BLOOD GAS METHEMOGLOBIN 0.8 % (0-2); BLOOD GAS O2 HGB SATURATION 96 % (90-100); BLOOD GAS OXYGEN CONTENT 13.9 Vol % (12.0-20.0); BLOOD GAS PCO2 36 mmHg (38-42); BLOOD GAS PO2 115 mmHg (61-120); BLOOD GAS TOTAL HGB 10.2 G/DL (12.0-16.0); TEMP CORR TO 98.6
[2016-12-25 05:16] LABS: CRITICAL VALUE NO; DRAW SITE ART LINE; FIO2 30 %; OXYGEN DEVICE VENTILATOR; STAT NO
[2016-12-25 05:49] LABS: HEMATOCRIT 21.4 % (35.0-46.0); MEAN CORPUSCULAR HEMOGLOBIN 29.1 PG (27.0-34.0); MEAN CORPUSCULAR HGB CONC 34.3 % (32.0-36.0); PLATELET COUNT 293 TH/MM3 (150-450); RED BLOOD COUNT 2.52 MIL/MM3 (4.00-5.30); RED CELL DISTRIBUTION WIDTH 13.7 % (11.6-17.2); REVIEW FLAG FINAL; WHITE BLOOD COUNT 24.1 TH/MM3 (4.0-11.0)
[2016-12-25] MEDS: INSULIN ASPART SUPPLEMENTAL SCALE SQ SCH ×2 (06:00)
[2016-12-25 06:01] LABS: ALT (GPT) 65 U/L (10-53); ANION GAP 9 MEQ/L (5-15); AST (GOT) 41 U/L (15-37); BICARBONATE 25.7 MEQ/L (21.0-32.0); BLOOD UREA NITROGEN 7 MG/DL (7-18); CHLORIDE 102 MEQ/L (98-107); GLOMERULAR FILTRATION RATE 311 ML/MIN (>89); POTASSIUM 3.6 MEQ/L (3.5-5.1); SODIUM (NA) 137 MEQ/L (136-145)
[2016-12-25 06:03] LABS: ALKALINE PHOSPHATASE 106 U/L (45-117); TOTAL BILIRUBIN ADULT 0.6 MG/DL (0.2-1.0)
--- NOTE | 2016-12-25 06:12 | RADRPT ---
EXAM DATE/TIME: 12/25/2016 05:09 [facility] COMPARISON: No previous studies available for comparison. INDICATIONS : Shortness of breath MEDICAL HISTORY : None. SURGICAL HISTORY : None. ENCOUNTER: Subsequent ACUITY: 1 week PAIN SCORE: Non-responsive. LOCATION: Bilateral chest FINDINGS: Mild patchy consolidation again seen of both lung bases, left slightly worse than right. Small calibe r left chest tube remains in place. There is a tiny basilar pneumothorax. Small left chest wall emphy sema again noted. There is a Dobbhoff feeding tube coiled in the stomach. Trach collar again noted. Left subclavian [place] tral venous catheter unchanged, tip in the superior vena cava. Right subclavian catheter out in the i nterim. CONCLUSION: 1. Left greater the right patchy airspace opacities of both bases, not significantly changed. 2. Tiny basilar pneumothorax on the left. Small caliber left chest tube remains in place. Paul Biggs MD on December 25, 2016 at 6:09 Board Certified Radiologist. This report was verified electronically.
[2016-12-25] MEDS: PROPRANOLOL HCL 10 MG TAB PO SCH ×3 (06:35→20:34)
[2016-12-25] MEDS ORDERED: SODIUM CHLOR 0.9% 250 ML INJ 250 ML IV ONE (07:45)
[2016-12-25] MEDS: CHLORHEXIDINE 0.12% (ORAL KIT) 15 ML CUP MT SCH ×2 (08:37→20:43)
[2016-12-25] MEDS: ARTIFICIAL TEARS OPTH OINT 3.5 APPLIC/3.5 GM TUBO EACH EYE SCH ×2 (08:37→21:00)
[2016-12-25] MEDS: SODIUM CHLORIDE 0.9% FLUSH 5 ML FLUSH IVF SCH ×2 (08:37→21:00)
[2016-12-25] MEDS: SODIUM CHLOR 0.9% 1000 ML INJ 1,000 ML IV SCH ×2 (08:37→17:00)
[2016-12-25] MEDS: DOCUSATE SODIUM 50 MG/SENNA 8.6 MG TAB PO SCH ×2 (08:42→20:44)
[2016-12-25] MEDS: LACTULOSE SYRUP 20 GM/30 ML CUP PO SCH (08:42)
[2016-12-25] MEDS: BROMOCRIPTINE MESYLATE 2.5 MG TAB PO SCH ×2 (08:42→20:44)
[2016-12-25] MEDS: ACETAMINOPHEN 325 MG/10.15 ML UDC NG PRN ×2 (09:05→15:38)
[2016-12-25 09:20] LABS: BLOOD GAS BASE EXCESS 1.8 mmol/L (-2-2); BLOOD GAS CARBOXYHEMOGLOBIN 1.3 % (0-4); BLOOD GAS HCO3 25 mmol/L (22-26); BLOOD GAS METHEMOGLOBIN 0.6 % (0-2); BLOOD GAS O2 HGB SATURATION 97 % (90-100); BLOOD GAS OXYGEN CONTENT 11.1 Vol % (12.0-20.0); BLOOD GAS PCO2 37 mmHg (38-42); BLOOD GAS PO2 131 mmHg (61-120); BLOOD GAS TOTAL HGB 7.9 G/DL (12.0-16.0); CRITICAL VALUE NO; OXYGEN DEVICE VENTILATOR; TEMP CORR TO 98.6
[2016-12-25 09:21] LABS: DRAW SITE ART LINE; FIO2 30 %; STAT NO; ULNAR PULSE NOT PRESENT; VENT SETTINGS PRVC/AC/VT420/PEEP5
[2016-12-25 10:06] LABS: HEMATOCRIT 22.2 % (35.0-46.0); REVIEW FLAG FINAL
[2016-12-25] MEDS: LEVOFLOXACIN 750 MG PREMIX INJ 150 ML IV SCH (10:28)
--- NOTE | 2016-12-25 10:54 | HHI.PR ---
Neuropsych Emotional Emotional: UnabletoAssess: Emotional, Anxious/Fearful, Depressed/Sad, Hostile/ Resentful, Irritable/Angry/Frustrate, Labile, Constricted/Blunted Behavior Behavior: Unable to Asses: Behavior, Coping/Acceptance, Cooperative w/ Treatment, Motivation, Frustration Tolerance/[place], Impulsive/Agitated, Suicidal/ Homicidal Risk Cognitive Cognitive: Unable to Asses: Cognitive, Attention/Concentration, Confused/ Orientation, Insight/Awareness, Judgement/Problem-Solving, Memory Psychosocial Psychosocial: Mild: Psychosocial, Family/Other Adjustment, Moderate: Realistic Expectation Progress Notes/Response to Tx Contents of Sessions: Level of Consciousness Time with Patient: 15 minutes Premorbid psychological status Premorbid Cognitive, Emotional and Behavioral Status: Stable. 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 The patient has no prior psychiatric difficulties, as described above. Substance abuse history is unremarkable. She is , and [facility]. Behavioral Reactions of Patient and Family/Support System: Tenuous. The patients family is experiencing ongoing issues of adjustment given the nature of the injury, and this aspect of recovery will require ongoing monitoring. Emotional/Behavioral Status of Patient and Family/Support System: Tenuous. Pertinent issues, if appropriate to this patients clinical care, are described in detail above. Maximizing acute care outcome This patient is very early into her recovery from her sustained traumatic brain injury, and presently medical recovery takes precedence over neurobehavioral recovery. As she improves, it is recommended that the patient be monitored for emergent behavioral impulsivity. This patients neuropathological challenges may limit their rehabilitation potential going forward, and these challenges will require specialized therapeutic skills to maximize outcome. Additionally, the patients family is experiencing ongoing issues of adjustment given the traumatic nature of the injury, and they will need ongoing psychological assistance, which I will provide. Anticipated Problems Presently, the most pressing concern is her medical recovery. As she progresses , ongoing areas of concern will likely include behavioral impulsivity, lack of insight and judgment, which is expected to improve with time and treatment. Presently, the patient in coma, unresponsive and sedated. Treatment Plan This clinician will continue to follow with you throughout the course of this patients rehabilitation treatment, and I will be available to meet with the patients family/support system to facilitate their understanding and the ongoing care of their family member. The goals of neuropsychological intervention shall be both educational and supportive to the family/support system as is deemed clinically appropriate. [facility] Level: I:No response-total assistance Impression This patient suffered a severe traumatic brain injury, with the likely probability of persistent neurocognitive impairment, depending on multiple medical factors. Diagnosis: (1) Major neurocognitive disorder as late effect of traumatic brain injury without behavioral disturbance Status: Acute Progress Note Narrative Ongoing follow-up of patient, including supportive counseling with parents, who were bedside. Neurobehaviorally, the patient demonstrates no significant improvement, although medically while she remains critically ill, it is reported that she is becoming more stable. I will continue to follow. Elver Cook PhD Dec 25, 2016 10:54 am
[2016-12-25] MEDS: VANCOMYCIN INJ 1,000 MG in SODIUM CHLOR 0.9% 250 ML INJ 250 ML IV SCH ×2 (11:28→22:02)
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
[2016-12-25] MEDS: PANTOPRAZOLE SODIUM 40 MG VIAL IV SCH (15:38)
[2016-12-25 16:30] LABS: HEMATOCRIT 31.5 % (35.0-46.0); REVIEW FLAG FINAL
[2016-12-25 17:17] LABS: CHLORIDE - TIMED URINE 117 MEQ/L; POTASSIUM 24 HOUR URINE 62 MEQ/24HR (40-80); POTASSIUM TIMED URINE 16 MEQ/L; SODIUM - TIMED URINE 98 MEQ/L; SODIUM 24 HOUR URINE 382 MEQ/24HR (80-180)
[2016-12-25] MEDS: fentaNYL DRIP 250 ML IV SCH (18:39)
[2016-12-25] MEDS: MORPHINE SULFATE 4 MG/ML INJ IV PUSH PRN ×2 (18:39→20:35)
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
[2016-12-25] MEDS: IBUPROFEN SUSP 100 MG/5 ML UDC PO PRN (20:44)
[2016-12-26] VITALS (19 sets, daily range): BP systolic 132–164; BP diastolic 64–90; PULSE 103–125; RESP 19–25; TEMP 98.8–101; O2SAT 97–100
[2016-12-26] MEDS: MORPHINE SULFATE 4 MG/ML INJ IV PUSH PRN (02:14)
[2016-12-26] MEDS: SODIUM CHLOR 0.9% 1000 ML INJ 1,000 ML IV SCH ×3 (03:35→23:35)
--- NOTE | 2016-12-26 04:20 | RADRPT ---
EXAM DATE/TIME: 12/26/2016 03:30 [facility] COMPARISON: CHEST SINGLE AP, December 25, 2016, 5:09. INDICATIONS : Shortness of breath. MEDICAL HISTORY : None. SURGICAL HISTORY : None. ENCOUNTER: Subsequent ACUITY: 1 week PAIN SCORE: Non-responsive. LOCATION: Bilateral chest FINDINGS: Portable AP view of the chest demonstrates a normal-sized cardiac silhouette. Tracheostomy, left subc lavian central line, and feeding tube remain present. Left chest tube also remains present there is a tiny left apical pneumothorax. No pleural effusion is seen. There is mild airspace consolidation in the left lower lobe. CONCLUSION: 1. Left chest tube remains present and there is a tiny left apical pneumothorax. 2. There is mild airspace consolidation in the left lower lobe, improved from the earlier exam. Paul Warren MD on December 26, 2016 at 4:16 Board Certified Radiologist. This report was verified electronically.
[2016-12-26 04:47] LABS: HEMATOCRIT 34.4 % (35.0-46.0); MEAN CELL VOLUME 83.7 FL (80.0-100.0); MEAN CORPUSCULAR HEMOGLOBIN 28.1 PG (27.0-34.0); MEAN CORPUSCULAR HGB CONC 33.6 % (32.0-36.0); PLATELET COUNT 338 TH/MM3 (150-450); RED BLOOD COUNT 4.11 MIL/MM3 (4.00-5.30); RED CELL DISTRIBUTION WIDTH 15.4 % (11.6-17.2); REVIEW FLAG FINAL; WHITE BLOOD COUNT 20.8 TH/MM3 (4.0-11.0)
[2016-12-26] MEDS: IBUPROFEN SUSP 100 MG/5 ML UDC PO PRN (04:48)
[2016-12-26] MEDS: PROPRANOLOL HCL 10 MG TAB PO SCH ×3 (04:48→21:27)
[2016-12-26] MEDS: levETIRAcetam INJ 500 MG in SODIUM CHLORIDE 0.9% INJ 100 ML IV SCH ×2 (04:49→15:35)
[2016-12-26 04:59] LABS: BICARBONATE 25.3 MEQ/L (21.0-32.0); MAGNESIUM 2.3 MG/DL (1.5-2.5); POTASSIUM 3.6 MEQ/L (3.5-5.1)
[2016-12-26 05:11] LABS: BLOOD GAS BASE EXCESS -0.5 mmol/L (-2-2); BLOOD GAS CARBOXYHEMOGLOBIN 1.4 % (0-4); BLOOD GAS HCO3 23 mmol/L (22-26); BLOOD GAS METHEMOGLOBIN 0.8 % (0-2); BLOOD GAS O2 HGB SATURATION 97 % (90-100); BLOOD GAS OXYGEN CONTENT 15.3 Vol % (12.0-20.0); BLOOD GAS PCO2 33 mmHg (38-42); BLOOD GAS PO2 141 mmHg (61-120); TEMP CORR TO 98.6
[2016-12-26 05:12] LABS: CRITICAL VALUE NO; OXYGEN DEVICE VENTILATOR
[2016-12-26 05:18] LABS: FIO2 30 %
[2016-12-26 05:19] LABS: DRAW SITE ALINE
[2016-12-26 05:20] LABS: STAT NO
[2016-12-26] MEDS: CHLORHEXIDINE 0.12% (ORAL KIT) 15 ML CUP MT SCH ×2 (08:16→20:32)
[2016-12-26] MEDS ORDERED: BISACODYL 10 MG SUPP RECTAL ONE (08:30)
[2016-12-26] MEDS ORDERED: IOHEXOL 350 MG/ML 10 ML VIAL (for RAD DIAG) IV ONE (09:28)
--- NOTE | 2016-12-26 09:53 | RADRPT ---
EXAM DATE/TIME: 12/26/2016 08:51 [facility] COMPARISON: CT BRAIN W/O CONTRAST, December 23, 2016, 5:37. INDICATIONS : Uneven pupils, changed since yesterday. RADIATION DOSE: 56.35 CTDIvol (mGy) MEDICAL HISTORY : None SURGICAL HISTORY : Craniotomy. ENCOUNTER: Initial ACUITY: 2 weeks PAIN SCALE: Non-responsive LOCATION: cranial TECHNIQUE: Multiple contiguous axial images were obtained of the head. Using automated exposure control and adj ustment of the mA and/or kV according to patient size, radiation dose was kept as low as reasonably a chievable to obtain optimal diagnostic quality images. FINDINGS: Compared to 12/23/16 there is generalized increase in edema with decreased attenuation of the white ma tter. The hygroma over the left is slightly larger. The ventricles are slightly smaller. The poste rior fossa is unremarkable. CONCLUSION: Generalized increase in edema. CTA is pending. John Dean MD FACR on December 26, 2016 at 9:49 Board Certified Radiologist. This report was verified electronically.
[2016-12-26] MEDS ORDERED: MIDAZOLAM HCL 2 MG/2 ML VIAL IVP ONE (10:15)
[2016-12-26] MEDS: LACTULOSE SYRUP 20 GM/30 ML CUP PO SCH (10:20)
[2016-12-26] MEDS: LEVOFLOXACIN 750 MG PREMIX INJ 150 ML IV SCH (10:20)
[2016-12-26] MEDS: SODIUM CHLORIDE 0.9% FLUSH 5 ML FLUSH IVF SCH ×2 (10:21→21:27)
[2016-12-26] MEDS: BROMOCRIPTINE MESYLATE 2.5 MG TAB PO SCH ×2 (10:21→19:44)
[2016-12-26] MEDS: DOCUSATE SODIUM 50 MG/SENNA 8.6 MG TAB PO SCH ×2 (10:21→19:44)
[2016-12-26] MEDS: ARTIFICIAL TEARS OPTH OINT 3.5 APPLIC/3.5 GM TUBO EACH EYE SCH ×2 (10:21→21:00)
[2016-12-26] MEDS: 3% SALINE INJ 500 ML IV SCH ×2 (10:22→20:32)
[2016-12-26] MEDS: VANCOMYCIN INJ 1,000 MG in SODIUM CHLOR 0.9% 250 ML INJ 250 ML IV SCH (10:33)
[2016-12-26] MEDS ORDERED: PHARMACY ORDERED LAB XX ONE (10:45)
[2016-12-26] MEDS: MIDAZOLAM 100 MG/ML INJ 100 ML IV SCH (10:49)
[2016-12-26] MEDS ORDERED: LABETALOL HCL 100 MG/20 ML VIAL IVP PRN (11:15)
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
--- NOTE | 2016-12-26 11:59 | RADRPT ---
EXAM DATE/TIME: 12/26/2016 09:05 [facility] COMPARISON: No previous studies available for comparison. INDICATIONS : Possible vasospasm. IV CONTRAST: 50 cc Omnipaque 350 (iohexol) IV ; Cumulative dose for multiple exams. RADIATION DOSE: 22.84 CTDIvol (mGy) ; Combined studies MEDICAL HISTORY : None SURGICAL HISTORY : Craniotomy. ENCOUNTER: Initial ACUITY: 2 weeks PAIN SCALE: Non-responsive LOCATION: Cranial TECHNIQUE: Volumetric scanning was performed using a multi-row detector CT scanner. The data was post processed with a variety of visualization algorithms including full volume maximum intensity projection, multi -planar sliding thin slab reformation, curved planar reformation, and surface rendering techniques. Using automated exposure control and adjustment of the mA and/or kV according to patient size, radiat ion dose was kept as low as reasonably achievable to obtain optimal diagnostic quality images. FINDINGS: CTA of the brain was performed to exclude vasospasm. Ventriculostomy is in good position. Overall, the vessels are small with a small basilar. Part of the reason the basilar is small is bj use both posterior cerebral arteries arise from the anterior circulation. There is no evidence for aneurysm. There is no significant vascular displacement. CONCLUSION: Probable mild vasospasm. John Dean MD FACR on December 26, 2016 at 11:18 Board Certified Radiologist. This report was verified electronically.
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
[2016-12-26] MEDS: CEFEPIME INJ 2,000 MG in SODIUM CHLORIDE 0.9% INJ 100 ML IV SCH (12:54)
[2016-12-26] MEDS ORDERED: SODIUM CHLORID 0.9% 500 ML INJ 500 ML IV ONE (13:30)
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
[2016-12-26] MEDS: LINEZOLID 600 MG PREMIX 300 ML IV SCH (14:13)
--- NOTE | 2016-12-26 14:27 | HHI.PR ---
Neuropsych Emotional Emotional: UnabletoAssess: Emotional, Anxious/Fearful, Depressed/Sad, Hostile/ Resentful, Irritable/Angry/Frustrate, Labile, Constricted/Blunted Behavior Behavior: Unable to Asses: Behavior, Coping/Acceptance, Cooperative w/ Treatment, Motivation, Frustration Tolerance/[place], Impulsive/Agitated, Suicidal/ Homicidal Risk Cognitive Cognitive: Unable to Asses: Cognitive, Attention/Concentration, Confused/ Orientation, Insight/Awareness, Judgement/Problem-Solving, Memory Progress Notes/Response to Tx Contents of Sessions: Level of Consciousness Time with Patient: 15 minutes Premorbid psychological status Premorbid Cognitive, Emotional and Behavioral Status: Stable. 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 The patient has no prior psychiatric difficulties, as described above. Substance abuse history is unremarkable. She is , [facility] Behavioral Reactions of Patient and Family/Support System: Tenuous. The patients family is experiencing ongoing issues of adjustment given the nature of the injury, and this aspect of recovery will require ongoing monitoring. Emotional/Behavioral Status of Patient and Family/Support System: Tenuous. Pertinent issues, if appropriate to this patients clinical care, are described in detail above. Maximizing acute care outcome This patient is very early into her recovery from her sustained traumatic brain injury, and presently medical recovery takes precedence over neurobehavioral recovery. As she improves, it is recommended that the patient be monitored for emergent behavioral impulsivity. This patients neuropathological challenges may limit their rehabilitation potential going forward, and these challenges will require specialized therapeutic skills to maximize outcome. Additionally, the patients family is experiencing ongoing issues of adjustment given the traumatic nature of the injury, and they will need ongoing psychological assistance, which I will provide. Anticipated Problems Presently, the most pressing concern is her medical recovery. As she progresses , ongoing areas of concern will likely include behavioral impulsivity, lack of insight and judgment, which is expected to improve with time and treatment. Presently, the patient in coma, unresponsive and sedated. Treatment Plan This clinician will continue to follow with you throughout the course of this patients rehabilitation treatment, and I will be available to meet with the patients family/support system to facilitate their understanding and the ongoing care of their family member. The goals of neuropsychological intervention shall be both educational and supportive to the family/support system as is deemed clinically appropriate. [facility] Level: I:No response-total assistance Impression This patient suffered a severe traumatic brain injury, with the likely probability of persistent neurocognitive impairment, depending on multiple medical factors. Diagnosis: (1) Major neurocognitive disorder as late effect of traumatic brain injury without behavioral disturbance Status: Acute Progress Note Narrative Ongoing follow-up of patient both within context of trauma rounds and individually. Patient had recently experienced an issue with dysconjugate gaze and underwent additional CT. From a neurobehavioral standpoint, there has been no significant change. Discussed and provided support to the patient's family. I will continue to follow with you. Elver oCok PhD Dec 26, 2016 14:27
[2016-12-26] MEDS: PANTOPRAZOLE SODIUM 40 MG VIAL IV SCH (15:35)
--- NOTE | 2016-12-26 17:44 | RADRPT ---
EXAM DATE/TIME: 12/26/2016 12:37 [facility] COMPARISON: No previous studies available for comparison. INDICATIONS : Left subdural hematoma. MEDICAL HISTORY : Left subdural hematoma. Liver laceration grade 3. Comminuted pelvic fracture. Hemorrhagic shock. SURGICAL HISTORY : Trauma surgery. Left craniotmy. ENCOUNTER: Initial ACUITY: 2 days PAIN SCORE: Nonresponsive. LOCATION: Bilateral cranial TIME -AVERAGED MAXIMAL VELOCITIES: MCA (1): Right: 96.6 Left: 85.7 MCA (2): Right: 82.9 Left: 51.6 HALLE (1): Right: 51.1 Left: 53.0 HALLE (2): Right: 30.7 Left: 27.4 PALAEONTOLOGIST (1): Right: 97.1 Left: 30.4 PALAEONTOLOGIST (2): Right: 63.9 Left: 31.4 Opthalmic Artery: Right: 6.4 Left: 16.4 VERTEBRAL: Right: 36.3 antegrade Left: 64.8 antegrade BASILAR: 97.6 ICA: Right: 28.5 Left: 14.3 Lindegaard Ratio: Right: 3.38 Left: 5.99 Wallace Ratio: Right: 1.79 Left: 3.70 FINDINGS: Examination performed at bedside. Real-time ultrasound with the assistance of color and spectral Dop pler was utilized to evaluate the intracerebral circulation. Time-averaged maximal velocities are ca lculated in cm/s. Comparison is made to the CT angiogram of the same day which demonstrates mild spasm involving the mi ddle cerebral artery on the right. There is elevation of the ratio is on the left side corresponding to severe stenosis for the anterior circulation of the peak systolic velocities in mean flow lines do not correlate with significant stenosis. There is no elevation of velocities in the posterior circul ation and the Wallace ratio is normal. CONCLUSION: 1. Elevated Lindegaard ratio on the left with normal velocities and no findings of high-grade spasm b y CT angiography. Continued screening for vasospasm is recommended Wander Brooke MD on December 26, 2016 at 16:59 Board Certified Radiologist. This report was verified electronically.
--- NOTE | 2016-12-26 17:46 | RADRPT ---
EXAM DATE/TIME: 12/26/2016 17:00 [facility] COMPARISON: No previous studies available for comparison. INDICATIONS : Abdominal distention. MEDICAL HISTORY : None. SURGICAL HISTORY : None. ENCOUNTER: Subsequent ACUITY: 1 day PAIN SCORE: Non-responsive. LOCATION: chest FINDINGS: Supine view of the abdomen was performed. The abdominal bowel gas pattern is normal. No abnormal ma sses, calcifications, or organomegaly is seen. The osseous structures are unremarkable. A Dobbhoff t ube is looped in the stomach with its tip in the body CONCLUSION: 1. Dobbhoff tube in the body of the stomach Wander Brooke MD on December 26, 2016 at 17:44 Board Certified Radiologist. This report was verified electronically.
[2016-12-26] MEDS ORDERED: SODIUM CHLORIDE 23.4% INJ 240 MEQ in SYRINGE/BAG 1 EA IV ONE (18:15)
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
[2016-12-26] MEDS: MAGNESIUM HYDROXIDE SUSP 30 ML CUP PO SCH (19:44)
[2016-12-26] MEDS: fentaNYL DRIP 250 ML IV SCH (19:44)
[2016-12-26 23:46] LABS: POTASSIUM 3.5 MEQ/L (3.5-5.1)
[2016-12-26 23:51] LABS: MAGNESIUM 2.3 MG/DL (1.5-2.5)
[2016-12-27] VITALS (20 sets, daily range): BP systolic 147–177; BP diastolic 78–91; PULSE 94–131; RESP 12–24; TEMP 98.7–101.9; O2SAT 98–100
[2016-12-27] MEDS: CEFEPIME INJ 2,000 MG in SODIUM CHLORIDE 0.9% INJ 100 ML IV SCH ×3 (00:02→22:44)
[2016-12-27] MEDS: LINEZOLID 600 MG PREMIX 300 ML IV SCH ×2 (00:03→14:52)
[2016-12-27] MEDS: ACETAMINOPHEN 325 MG/10.15 ML UDC NG PRN (00:06)
[2016-12-27] MEDS: levETIRAcetam INJ 500 MG in SODIUM CHLORIDE 0.9% INJ 100 ML IV SCH ×2 (03:06→14:52)
[2016-12-27] MEDS: 3% SALINE INJ 500 ML IV SCH ×4 (03:06→22:45)
[2016-12-27 04:38] LABS: RED BLOOD COUNT 4.01 MIL/MM3 (4.00-5.30); WHITE BLOOD COUNT 18.6 TH/MM3 (4.0-11.0)
[2016-12-27 04:39] LABS: AUTOMATED NEUTROPHIL # 16.3 TH/MM3 (1.8-7.7); BASOPHIL # 0.1 TH/MM3 (0-0.2); BASOPHIL % 0.4 % (0.0-2.0); EOSINOPHIL # 0.2 TH/MM3 (0-0.4); EOSINOPHIL % 1.2 % (0.0-4.0); HEMATOCRIT 33.5 % (35.0-46.0); LYMPH % 4.5 % (9.0-44.0); LYMPHOCYTE # 0.8 TH/MM3 (1.0-4.8); MEAN CELL VOLUME 83.4 FL (80.0-100.0); MEAN CORPUSCULAR HGB CONC 33.6 % (32.0-36.0); MONO % 6.5 % (0.0-8.0); NEUT % 87.4 % (16.0-70.0); PLATELET COUNT 424 TH/MM3 (150-450); RED CELL DISTRIBUTION WIDTH 15.1 % (11.6-17.2)
[2016-12-27 04:50] LABS: HEMO FLAGS AUTO DIFF
[2016-12-27 04:55] LABS: BLOOD GAS BASE EXCESS -0.3 mmol/L (-2-2); BLOOD GAS CARBOXYHEMOGLOBIN 1.2 % (0-4); BLOOD GAS HCO3 24 mmol/L (22-26); BLOOD GAS METHEMOGLOBIN 0.9 % (0-2); BLOOD GAS O2 HGB SATURATION 97 % (90-100); BLOOD GAS OXYGEN CONTENT 15.8 Vol % (12.0-20.0); BLOOD GAS PCO2 39 mmHg (38-42); BLOOD GAS PO2 136 mmHg (61-120); BLOOD GAS TOTAL HGB 11.4 G/DL (12.0-16.0); CRITICAL VALUE NO; DRAW SITE ALINE; FIO2 30 %; OXYGEN DEVICE VENTILATOR; STAT NO; TEMP CORR TO 98.6; VENT SETTINGS PRVC/16/500/.07/+5
[2016-12-27 04:58] LABS: ANION GAP 6 MEQ/L (5-15); AST (GOT) 66 U/L (15-37); BICARBONATE 24.9 MEQ/L (21.0-32.0); BLOOD UREA NITROGEN 8 MG/DL (7-18); CHLORIDE 108 MEQ/L (98-107); GLOMERULAR FILTRATION RATE 311 ML/MIN (>89); MAGNESIUM 2.4 MG/DL (1.5-2.5); POTASSIUM 3.8 MEQ/L (3.5-5.1); SODIUM (NA) 139 MEQ/L (136-145)
[2016-12-27 05:01] LABS: ALKALINE PHOSPHATASE 110 U/L (45-117); ALT (GPT) 83 U/L (10-53); TOTAL BILIRUBIN ADULT 0.5 MG/DL (0.2-1.0)
--- NOTE | 2016-12-27 05:09 | RADRPT ---
EXAM DATE/TIME: 12/27/2016 03:58 [facility] COMPARISON: CHEST SINGLE AP, December 26, 2016, 3:30. INDICATIONS : Shortness of breath. MEDICAL HISTORY : None. SURGICAL HISTORY : None. ENCOUNTER: Subsequent ACUITY: 1 week PAIN SCORE: Non-responsive. LOCATION: Bilateral chest FINDINGS: Portable AP view of the chest demonstrates a normal-sized cardiac silhouette. Tracheostomy, left subc lavian central line, and feeding tube remain present. Left chest tube also remains present and no pne umothorax is visualized. There is mild atelectasis at the lung bases. CONCLUSION: 1. Left chest tube remains present and no pneumothorax is visualized. 2. There is mild atelectasis at the lung bases. Paul Warren MD on December 27, 2016 at 5:07 Board Certified Radiologist. This report was verified electronically.
[2016-12-27] MEDS: PROPRANOLOL HCL 10 MG TAB PO SCH ×3 (06:22→20:36)
--- NOTE | 2016-12-27 07:35 | MP ---
cc: MD CHUCK,ABRAHAM DATE OF SURGERY: 12/24/2016 PREOPERATIVE DIAGNOSIS: Respiratory failure, brain injury. POSTOPERATIVE DIAGNOSIS: Respiratory failure, brain injury. OPERATION: Tracheostomy, blue rhino. SURGEON: Abraham Becerra MD. ANESTHESIA 1% xylocaine and Propofol sedation. PROCEDURE: The patient was prepped and draped in the usual sterile fashion, a small vertical neck incision was made deepened down to the trachea with a hemostat, further procedures followed with bronchoscopy from above. The needle inserted between second and third tracheal ring and then through the needle the guidewire was slid into the trachea inferiorly, over the wire the 4-Mauritanian dilator was placed and then after that the large blue rhino dilator dilating trachea to the to accommodate a 8 size Shiley is now placed using the guide, dilator and sutured in place with 0-Prolene stitches and then secured around the neck tracheal cannula is connected to the ventilator, end-tidal CO2 checked. The patient tolerated the procedure well and chest x-ray obtained. Abraham PRATT/winston /6:50 PM /7:32 AM
[2016-12-27] MEDS: CHLORHEXIDINE 0.12% (ORAL KIT) 15 ML CUP MT SCH ×2 (08:00→20:35)
[2016-12-27] MEDS ORDERED: BISACODYL 10 MG SUPP RECTAL ONE (08:15)
[2016-12-27] MEDS: DOCUSATE SODIUM 50 MG/SENNA 8.6 MG TAB PO SCH ×2 (09:00→20:37)
[2016-12-27] MEDS: ARTIFICIAL TEARS OPTH OINT 3.5 APPLIC/3.5 GM TUBO EACH EYE SCH ×2 (09:00→21:00)
[2016-12-27] MEDS: LACTULOSE SYRUP 20 GM/30 ML CUP PO SCH (09:05)
[2016-12-27] MEDS: IBUPROFEN SUSP 100 MG/5 ML UDC PO PRN ×2 (09:05→21:11)
[2016-12-27] MEDS: BROMOCRIPTINE MESYLATE 2.5 MG TAB PO SCH ×2 (09:05→20:36)
[2016-12-27] MEDS: SODIUM CHLORIDE 0.9% FLUSH 5 ML FLUSH IVF SCH ×2 (09:06→20:37)
[2016-12-27 09:22] LABS: BANDS 23 % (0-6); MYELOCYTES 3 % (0-0); NEUTROPHIL # MANUAL DIFF 15.1 TH/MM3 (1.8-7.7); POLYS (SEG NEUTROPHILS) 55 % (16-70); WBC DIFF SAMPLE 100
[2016-12-27 09:23] LABS: PLATELET ESTIMATE SMEAR NORMAL (NORMAL); PLATELET MORPHOLOGY NORMAL (NORMAL); SCAN/DIFF FINAL DIFF MANUAL
[2016-12-27] MEDS: LEVOFLOXACIN 750 MG PREMIX INJ 150 ML IV SCH (10:10)
--- NOTE | 2016-12-27 11:44 | RADRPT ---
EXAM DATE/TIME: 12/27/2016 09:19 [place] COMPARISON: US TRANSCRANIAL DOPPLER COMPLETE, December 26, 2016, 12:37. INDICATIONS : Left subdural hematoma. MEDICAL HISTORY : Left subdural hematoma. Liver laceration grade 3. Comminuted pelvic fracture. Hemorrhagic shock. SURGICAL HISTORY : Trauma surgery. Left craniotomy. ENCOUNTER: Subsequent ACUITY: 3 days PAIN SCORE: Nonresponsive. LOCATION: Bilateral cranial TIME -AVERAGED MAXIMAL VELOCITIES: MCA (1): Right: 105.6 Left: 142.4 MCA (2): Right: 89.9 Left: 67.0 HALLE (1): Right: 62.4 Left: 58.8 HALLE (2): Right: 27.2 Left: 24.8 HIDE INSPECTOR (1): Right: 84.8 Left: 108.1 HIDE INSPECTOR (2): Right: 52.3 Left: 24.6 Opthalmic Artery: Right: not done Left: not done VERTEBRAL: Right: 59.0 antegrade Left: 73.0 antegrade BASILAR: 91.9 ICA: Right: 28.9 Left: 33.7 Lindegaard Ratio: Right: 3.65 Left: 4.22 Wallace Ratio: Right: 2.15 Left: 1.74 FINDINGS: Examination performed at bedside. Real-time ultrasound with the assistance of color and spectral Dop pler was utilized to evaluate the intracerebral circulation. Time-averaged maximal velocities are ca lculated in cm/s. CONCLUSION: 1. Elevated velocities in the left MCA suggesting mild vasospasm. 2. Lindgard ratio is mildly elevated bilaterally but slightly greater on the left. Nilson Ambrosio MD on December 27, 2016 at 11:38 Board Certified Radiologist. This report was verified electronically.
[2016-12-27 12:45] LABS: MAGNESIUM 2.2 MG/DL (1.5-2.5)
[2016-12-27] MEDS ORDERED: oxyCODONE HCL ORAL CONC 20 MG/ML SYRINGE PO PRN (13:00)
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
[2016-12-27] MEDS: PANTOPRAZOLE SODIUM 40 MG VIAL IV SCH (14:52)
[2016-12-27 16:32] LABS: CSF NEUTROPHILS 93 %; GROSS BLOOD TUBE #1 0 (0); SUPERNATE COLOR TUBE #1 HEMOLYZED (CLEAR); WBC TUBE #1 207 /MM3 (0-10)
[2016-12-27 16:33] LABS: CSF LYMPHOCYTES 2 %; CSF MONOCYTES 5 %
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
[2016-12-27] MEDS: MICAFUNGIN INJ 100 MG in SODIUM CHLORIDE 0.9% INJ 100 ML IV SCH (20:36)
[2016-12-27] MEDS: ARTIFICIAL TEARS OPTH SOLN 15 ML BTL EACH EYE PRN (20:37)
[2016-12-27] MEDS: MAGNESIUM HYDROXIDE SUSP 30 ML CUP PO SCH (20:37)
[2016-12-27] MEDS ORDERED: NOREPINEPHRINE INJ 4 MG in SODIUM CHLOR 0.9% 250 ML INJ 250 ML IV PRN (22:00)
[2016-12-28] VITALS (16 sets, daily range): BP systolic 134–174; BP diastolic 74–90; PULSE 90–134; RESP 16–26; TEMP 99.6–101.6; O2SAT 100
[2016-12-28] MEDS: ACETAMINOPHEN 325 MG/10.15 ML UDC NG PRN ×3 (00:30→20:45)
[2016-12-28] MEDS: LINEZOLID 600 MG PREMIX 300 ML IV SCH ×2 (00:30→14:22)
[2016-12-28] MEDS: levETIRAcetam INJ 500 MG in SODIUM CHLORIDE 0.9% INJ 100 ML IV SCH ×2 (03:41→17:47)
[2016-12-28] MEDS: 3% SALINE INJ 500 ML IV SCH ×4 (03:41→22:17)
[2016-12-28] MEDS: NOREPINEPHRINE INJ 4 MG in SODIUM CHLOR 0.9% 250 ML INJ 250 ML IV PRN ×3 (03:54→21:23)
[2016-12-28] MEDS: oxyCODONE HCL ORAL CONC 20 MG/ML SYRINGE PO PRN (03:55)
[2016-12-28 04:14] LABS: BASOPHIL # 0.1 TH/MM3 (0-0.2); BASOPHIL % 0.6 % (0.0-2.0); EOSINOPHIL # 0.3 TH/MM3 (0-0.4); EOSINOPHIL % 1.7 % (0.0-4.0); LYMPHOCYTE # 1.5 TH/MM3 (1.0-4.8); MEAN CELL VOLUME 84.4 FL (80.0-100.0); MEAN CORPUSCULAR HEMOGLOBIN 28.2 PG (27.0-34.0); MEAN CORPUSCULAR HGB CONC 33.5 % (32.0-36.0); NEUT % 82.7 % (16.0-70.0); PLATELET COUNT 488 TH/MM3 (150-450); RED BLOOD COUNT 3.67 MIL/MM3 (4.00-5.30); RED CELL DISTRIBUTION WIDTH 14.7 % (11.6-17.2); WHITE BLOOD COUNT 19.4 TH/MM3 (4.0-11.0)
[2016-12-28 04:20] LABS: HEMO FLAGS AUTO DIFF
[2016-12-28 04:41] LABS: ALKALINE PHOSPHATASE 178 U/L (45-117); ALT (GPT) 97 U/L (10-53); ANION GAP 6 MEQ/L (5-15); AST (GOT) 78 U/L (15-37); BLOOD UREA NITROGEN 7 MG/DL (7-18); CHLORIDE 107 MEQ/L (98-107); GLOMERULAR FILTRATION RATE 325 ML/MIN (>89); MAGNESIUM 2.2 MG/DL (1.5-2.5); SODIUM (NA) 140 MEQ/L (136-145); TOTAL BILIRUBIN ADULT 0.4 MG/DL (0.2-1.0)
[2016-12-28 04:46] LABS: BANDS 19 % (0-6); EOSINOPHILS 1 % (0-4); METAMYELOCYTES 1 % (0-1); MYELOCYTES 1 % (0-0); NEUTROPHIL # MANUAL DIFF 17.5 TH/MM3 (1.8-7.7); POLYS (SEG NEUTROPHILS) 69 % (16-70); WBC DIFF SAMPLE 100
[2016-12-28 04:48] LABS: PLATELET ESTIMATE SMEAR HIGH (NORMAL); PLATELET MORPHOLOGY NORMAL (NORMAL); SCAN/DIFF FINAL DIFF MANUAL
[2016-12-28] MEDS: IBUPROFEN SUSP 100 MG/5 ML UDC PO PRN ×2 (05:10→17:00)
[2016-12-28] MEDS: PROPRANOLOL HCL 10 MG TAB PO SCH ×3 (05:10→20:41)
[2016-12-28 05:14] LABS: BLOOD GAS BASE EXCESS 0.3 mmol/L (-2-2); BLOOD GAS CARBOXYHEMOGLOBIN 1.2 % (0-4); BLOOD GAS HCO3 24 mmol/L (22-26); BLOOD GAS METHEMOGLOBIN 0.8 % (0-2); BLOOD GAS O2 HGB SATURATION 97 % (90-100); BLOOD GAS OXYGEN CONTENT 15.4 Vol % (12.0-20.0); BLOOD GAS PCO2 34 mmHg (38-42); BLOOD GAS PO2 154 mmHg (61-120); CRITICAL VALUE NO; DRAW SITE ALINE; FIO2 30 %; OXYGEN DEVICE VENTILATOR; STAT NO; TEMP CORR TO 98.6; VENT SETTINGS PRVC/18/500/0.7/+5
[2016-12-28] MEDS ORDERED: VANCOMYCIN INJ 900 MG in SODIUM CHLOR 0.9% 250 ML INJ 250 ML IV ONE (06:15)
--- NOTE | 2016-12-28 06:35 | RADRPT ---
EXAM DATE/TIME: 12/28/2016 05:31 [facility] COMPARISON: CHEST SINGLE AP, December 27, 2016, 3:58. INDICATIONS : Shortness of breath, possible pulmonary disease. MEDICAL HISTORY : None. SURGICAL HISTORY : None. ENCOUNTER: Subsequent ACUITY: 1 week PAIN SCORE: Non-responsive. LOCATION: Bilateral chest FINDINGS: AP view of the chest demonstrates a normal-sized cardiac silhouette. Tracheostomy, left subclavian ce ntral line, and feeding tube remain present. No pleural effusion, airspace consolidation, or pneumoth orax is present. Left chest tube remains present. CONCLUSION: Stable chest x-ray without an acute finding identified. No pneumothorax is seen. Paul Warren MD on December 28, 2016 at 6:32 Board Certified Radiologist. This report was verified electronically.
[2016-12-28] MEDS: CHLORHEXIDINE 0.12% (ORAL KIT) 15 ML CUP MT SCH ×2 (07:59→19:45)
[2016-12-28] MEDS: DOCUSATE SODIUM 50 MG/SENNA 8.6 MG TAB PO SCH ×2 (08:00→19:46)
[2016-12-28] MEDS: LACTULOSE SYRUP 20 GM/30 ML CUP PO SCH (08:00)
[2016-12-28] MEDS: SODIUM CHLORIDE 0.9% FLUSH 5 ML FLUSH IVF SCH ×2 (08:00→19:45)
[2016-12-28] MEDS: ARTIFICIAL TEARS OPTH OINT 3.5 APPLIC/3.5 GM TUBO EACH EYE SCH ×2 (08:01→19:45)
[2016-12-28] MEDS: CEFEPIME INJ 2,000 MG in SODIUM CHLORIDE 0.9% INJ 100 ML IV SCH ×3 (08:11→23:06)
[2016-12-28] MEDS ORDERED: MAGNESIUM CITRATE SOLN 300 ML BTL PO ONE (08:30)
[2016-12-28] MEDS: MORPHINE SULFATE 4 MG/ML INJ IV PUSH PRN (08:42)
[2016-12-28] MEDS: BROMOCRIPTINE MESYLATE 2.5 MG TAB PO SCH ×2 (08:43→19:46)
[2016-12-28] MEDS: MEPERIDINE HCL 25 MG/ML VIAL IV PUSH PRN ×2 (08:51→20:41)
[2016-12-28] MEDS: LEVOFLOXACIN 750 MG PREMIX INJ 150 ML IV SCH (10:30)
[2016-12-28] MEDS ORDERED: ATROPINE SULFATE 1 MG/10 ML SYRINGE ONE (11:37)
[2016-12-28] MEDS ORDERED: EPINEPHrine HCL (1:10,000) 1 MG/10 ML SYRINGE ONE (11:37)
[2016-12-28] MEDS ORDERED: IOHEXOL 350 MG/ML 10 ML VIAL (for RAD DIAG) IV ONE (12:31)
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
--- NOTE | 2016-12-28 14:01 | RADRPT ---
EXAM DATE/TIME: 12/28/2016 12:27 [facility] COMPARISON: CTA BRAIN W 3D RECON, December 26, 2016, 9:05. INDICATIONS : Follow-up. Possible vasospasm. IV CONTRAST: 77 cc Omnipaque 350 (iohexol) IV RADIATION DOSE: 24.54 CTDIvol (mGy) MEDICAL HISTORY : Non-responsive. SURGICAL HISTORY : Craniotomy. ENCOUNTER: Subsequent ACUITY: 2 days PAIN SCALE: Non-responsive LOCATION: cranial TECHNIQUE: Volumetric scanning was performed using a multi-row detector CT scanner. The data was post processed with a variety of visualization algorithms including full volume maximum intensity projection, multi -planar sliding thin slab reformation, curved planar reformation, and surface rendering techniques. Using automated exposure control and adjustment of the mA and/or kV according to patient size, radiat ion dose was kept as low as reasonably achievable to obtain optimal diagnostic quality images. FINDINGS: Ventriculostomy catheter is unchanged. Ventricles are normal in size. Left-sided craniectomy with sub dural fluid collection. There is slight decrease in caliber of the intracranial vasculature more nota siobhan involving the right A1 segment. Anterior to indicating artery. Persistent circulation right posterior cerebral artery. Left-sided posterior commuting artery seen. CONCLUSION: Slight decrease in caliber of intracranial vasculature suggesting vasospasm. Nilson Ambrosio MD on December 28, 2016 at 13:56 Board Certified Radiologist. This report was verified electronically.
[2016-12-28] MEDS ORDERED: VERAPAMIL HCL 5 MG/2 ML VIAL ONE ×2 (14:48→14:54)
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
[2016-12-28] MEDS ORDERED: MIDAZOLAM HCL 5 MG/5 ML VIAL ONE (15:18)
[2016-12-28] MEDS ORDERED: fentaNYL CITRATE 250 MCG/5 ML AMP ONE (15:18)
[2016-12-28] MEDS ORDERED: VERAPAMIL INJ 10 MG/4 ML VIAL ONE (15:50)
--- NOTE | 2016-12-28 16:11 | PD.RAD ---
Post Procedure Progress Note Pre Procedure Diagnosis: (1) Major neurocognitive disorder as late effect of traumatic brain injury without behavioral disturbance Post Procedure Diagnosis: (1) Major neurocognitive disorder as late effect of traumatic brain injury without behavioral disturbance Procedure Date: Dec 28, 2016 Supervising Radiologist: Wander Brooke Proceduralist/Assist: Keesha Elliott, RT(R)(CV), Trini Villa RT(R)() Anesthesia: Analgesia Plan of Activity Patient to Unit: Critical Care Patient Condition: Poor See PACS Report for procedural detail/treatment Vascular-Arterial Procedure Procedure 1 Procedure Site: Cerebral Procedure(s): Angiogram (infusion for spasmolysis right and left cerebral and left vertebral) Access Closure Site(s): Right manual pressure Wander Brooke MD Dec 28, 2016 16:11
[2016-12-28] MEDS ORDERED: IODIXANOL 320 MG/ML 50 ML VIAL (for RAD SPEC) I-ARTERIAL ONE (16:23)
[2016-12-28] MEDS: PANTOPRAZOLE SODIUM 40 MG VIAL IV SCH (17:25)
[2016-12-28] MEDS: MICAFUNGIN INJ 100 MG in SODIUM CHLORIDE 0.9% INJ 100 ML IV SCH (19:45)
[2016-12-28] MEDS: HYOSCYAMINE 0.125 MG TAB PO PRN (19:46)
[2016-12-28] MEDS: MAGNESIUM HYDROXIDE SUSP 30 ML CUP PO SCH (19:46)
[2016-12-29] VITALS (18 sets, daily range): BP systolic 166–172; BP diastolic 92–100; PULSE 100–130; RESP 18–30; TEMP 99.6–101.4; O2SAT 30–100
[2016-12-29] MEDS: IBUPROFEN SUSP 100 MG/5 ML UDC PO PRN ×3 (01:02→18:12)
[2016-12-29] MEDS: LINEZOLID 600 MG PREMIX 300 ML IV SCH (01:02)
[2016-12-29] MEDS: levETIRAcetam INJ 500 MG in SODIUM CHLORIDE 0.9% INJ 100 ML IV SCH ×2 (03:06→16:09)
[2016-12-29] MEDS: MORPHINE SULFATE 4 MG/ML INJ IV PUSH PRN ×3 (03:25→17:22)
[2016-12-29] MEDS: 3% SALINE INJ 500 ML IV SCH ×4 (03:31→21:29)
[2016-12-29] MEDS: NOREPINEPHRINE INJ 4 MG in SODIUM CHLOR 0.9% 250 ML INJ 250 ML IV PRN ×2 (03:31→11:42)
[2016-12-29 04:39] LABS: AUTOMATED NEUTROPHIL # 12.4 TH/MM3 (1.8-7.7); BASOPHIL # 0.1 TH/MM3 (0-0.2); BASOPHIL % 0.5 % (0.0-2.0); EOSINOPHIL # 0.2 TH/MM3 (0-0.4); EOSINOPHIL % 1.2 % (0.0-4.0); HEMATOCRIT 27.8 % (35.0-46.0); LYMPH % 8.5 % (9.0-44.0); LYMPHOCYTE # 1.3 TH/MM3 (1.0-4.8); MEAN CELL VOLUME 83.2 FL (80.0-100.0); MEAN CORPUSCULAR HEMOGLOBIN 28.8 PG (27.0-34.0); MEAN CORPUSCULAR HGB CONC 34.7 % (32.0-36.0); MONO % 8.6 % (0.0-8.0); NEUT % 81.2 % (16.0-70.0); PLATELET COUNT 554 TH/MM3 (150-450); RED BLOOD COUNT 3.35 MIL/MM3 (4.00-5.30); RED CELL DISTRIBUTION WIDTH 14.7 % (11.6-17.2); WHITE BLOOD COUNT 15.2 TH/MM3 (4.0-11.0)
[2016-12-29 04:53] LABS: HEMO FLAGS AUTO DIFF
[2016-12-29 05:09] LABS: ALT (GPT) 83 U/L (10-53); ANION GAP 9 MEQ/L (5-15); AST (GOT) 63 U/L (15-37); BICARBONATE 24.3 MEQ/L (21.0-32.0); BLOOD UREA NITROGEN 5 MG/DL (7-18); CHLORIDE 107 MEQ/L (98-107); GLOMERULAR FILTRATION RATE 265 ML/MIN (>89); MAGNESIUM 2.1 MG/DL (1.5-2.5); POTASSIUM 3.4 MEQ/L (3.5-5.1); SODIUM (NA) 140 MEQ/L (136-145)
[2016-12-29 05:11] LABS: ALKALINE PHOSPHATASE 104 U/L (45-117); TOTAL BILIRUBIN ADULT 0.4 MG/DL (0.2-1.0)
--- NOTE | 2016-12-29 05:19 | RADRPT ---
EXAM DATE/TIME: 12/29/2016 04:33 [facility] COMPARISON: CHEST SINGLE AP, December 28, 2016, 5:31. INDICATIONS : Shortness of breath. MEDICAL HISTORY : None. SURGICAL HISTORY : None. ENCOUNTER: Subsequent ACUITY: 1 week PAIN SCORE: Non-responsive. LOCATION: Bilateral chest FINDINGS: Lungs are clear. Tracheostomy tube and left subclavian central venous catheter are again noted. Feedi ng tube courses beneath the diaphragm. CONCLUSION: No significant change has occurred. Scotty Mederos MD on December 29, 2016 at 5:17 Board Certified Radiologist. This report was verified electronically.
[2016-12-29] MEDS: PROPRANOLOL HCL 10 MG TAB PO SCH ×4 (05:22→21:34)
[2016-12-29] MEDS: POTASSIUM CHLOR 40 MEQ PREMIX 100 ML IV PRN (05:22)
[2016-12-29 05:37] LABS: BLOOD GAS BASE EXCESS 0.3 mmol/L (-2-2); BLOOD GAS CARBOXYHEMOGLOBIN 1.2 % (0-4); BLOOD GAS HCO3 24 mmol/L (22-26); BLOOD GAS METHEMOGLOBIN 0.7 % (0-2); BLOOD GAS O2 HGB SATURATION 97 % (90-100); BLOOD GAS OXYGEN CONTENT 13.3 Vol % (12.0-20.0); BLOOD GAS PCO2 34 mmHg (38-42); BLOOD GAS PO2 136 mmHg (61-120); BLOOD GAS TOTAL HGB 9.5 G/DL (12.0-16.0); CRITICAL VALUE NO; OXYGEN DEVICE VENTILATOR; TEMP CORR TO 98.6
[2016-12-29 05:38] LABS: DRAW SITE ART LINE; FIO2 30 %; STAT NO; VENT SETTINGS PRVC/AC
[2016-12-29] MEDS: CEFEPIME INJ 2,000 MG in SODIUM CHLORIDE 0.9% INJ 100 ML IV SCH (07:23)
[2016-12-29] MEDS: CHLORHEXIDINE 0.12% (ORAL KIT) 15 ML CUP MT SCH ×2 (07:23→21:34)
[2016-12-29 07:46] LABS: BANDS 3 % (0-6); BASOPHILS 1 % (0-2); METAMYELOCYTES 1 % (0-1); NEUTROPHIL # MANUAL DIFF 11.7 TH/MM3 (1.8-7.7); PLATELET ESTIMATE SMEAR HIGH (NORMAL); PLATELET MORPHOLOGY NORMAL (NORMAL); POLYS (SEG NEUTROPHILS) 73 % (16-70); SCAN/DIFF FINAL DIFF MANUAL; WBC DIFF SAMPLE 100
[2016-12-29] MEDS: LACTULOSE SYRUP 20 GM/30 ML CUP PO SCH (08:03)
[2016-12-29] MEDS: DOCUSATE SODIUM 50 MG/SENNA 8.6 MG TAB PO SCH ×2 (08:03→21:34)
[2016-12-29] MEDS: ARTIFICIAL TEARS OPTH OINT 3.5 APPLIC/3.5 GM TUBO EACH EYE SCH ×2 (08:03→21:00)
[2016-12-29] MEDS: BROMOCRIPTINE MESYLATE 2.5 MG TAB PO SCH ×2 (08:03→21:34)
[2016-12-29] MEDS: SODIUM CHLORIDE 0.9% FLUSH 5 ML FLUSH IVF SCH ×2 (08:03→21:29)
[2016-12-29] MEDS: ACETAMINOPHEN 325 MG/10.15 ML UDC NG PRN ×2 (08:44→23:14)
[2016-12-29] MEDS: BISACODYL 10 MG SUPP RECTAL SCH (09:49)
[2016-12-29] MEDS: LEVOFLOXACIN 750 MG PREMIX INJ 150 ML IV SCH (10:05)
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
[2016-12-29] MEDS: SODIUM PHOSPHATE INJ 30 MMOL in SODIUM CHLOR 0.9% 250 ML INJ 240 ML IV PRN (11:42)
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
[2016-12-29] MEDS ORDERED: VANCOMYCIN INJ 1,500 MG in SODIUM CHLORID 0.9% 500 ML INJ 500 ML IV ONE (13:30)
[2016-12-29] MEDS ORDERED: Vancomycin Consult Pharmacy 1 EA OTHER SCH (13:30)
[2016-12-29 14:28] LABS: BLOOD, URINE NEG (NEG); GLUCOSE,URINE NEG (NEG); KETONE, URINE NEG (NEG); MUCUS URINE FEW /lpf (OCC); NITRITE,URINE NEG (NEG); URINE COLOR COLORLESS (YELLW/STRAW)
[2016-12-29 14:29] LABS: COMMENT (UR) CATH-CULT NOT IND; CULTURE IF INDICATED CATH CULTURE NOT IND
[2016-12-29] MEDS ORDERED: PROPOFOL 200 MG/20 ML AMP IV ONE (14:40)
[2016-12-29] MEDS: VANCOMYCIN INJ 750 MG in SODIUM CHLOR 0.9% 250 ML INJ 250 ML IV SCH ×2 (15:09→23:14)
[2016-12-29] MEDS: PANTOPRAZOLE SODIUM 40 MG VIAL IV SCH (16:09)
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
[2016-12-29] MEDS: FUROSEMIDE 20 MG/2 ML VIAL IV PUSH SCH (17:07)
[2016-12-29] MEDS: MICAFUNGIN INJ 100 MG in SODIUM CHLORIDE 0.9% INJ 100 ML IV SCH (21:28)
[2016-12-29] MEDS: MAGNESIUM HYDROXIDE SUSP 30 ML CUP PO SCH (21:34)
[2016-12-29] MEDS: oxyCODONE HCL ORAL CONC 20 MG/ML SYRINGE PO PRN (23:15)
[2016-12-30] VITALS (19 sets, daily range): BP systolic 146–180; BP diastolic 86–100; PULSE 84–130; RESP 13–24; TEMP 99.2–102; O2SAT 100
[2016-12-30] MEDS: 3% SALINE INJ 500 ML IV SCH ×2 (02:50→08:30)
[2016-12-30] MEDS: levETIRAcetam INJ 500 MG in SODIUM CHLORIDE 0.9% INJ 100 ML IV SCH ×2 (04:00→15:53)
[2016-12-30 04:52] LABS: AUTOMATED NEUTROPHIL # 11.6 TH/MM3 (1.8-7.7); BASOPHIL # 0.1 TH/MM3 (0-0.2); BASOPHIL % 0.8 % (0.0-2.0); EOSINOPHIL # 0.2 TH/MM3 (0-0.4); EOSINOPHIL % 1.1 % (0.0-4.0); HEMATOCRIT 29.9 % (35.0-46.0); HEMO FLAGS DIFF FINAL; LYMPH % 9.8 % (9.0-44.0); LYMPHOCYTE # 1.4 TH/MM3 (1.0-4.8); MEAN CELL VOLUME 86.6 FL (80.0-100.0); MEAN CORPUSCULAR HEMOGLOBIN 30.5 PG (27.0-34.0); MEAN CORPUSCULAR HGB CONC 35.3 % (32.0-36.0); MONO % 7.7 % (0.0-8.0); NEUT % 80.6 % (16.0-70.0); PLATELET COUNT 602 TH/MM3 (150-450); RED BLOOD COUNT 3.46 MIL/MM3 (4.00-5.30); RED CELL DISTRIBUTION WIDTH 14.5 % (11.6-17.2); WHITE BLOOD COUNT 14.4 TH/MM3 (4.0-11.0)
[2016-12-30 04:53] LABS: ALKALINE PHOSPHATASE 117 U/L (45-117); ALT (GPT) 77 U/L (10-53); ANION GAP 9 MEQ/L (5-15); AST (GOT) 53 U/L (15-37); BICARBONATE 26.8 MEQ/L (21.0-32.0); BLOOD UREA NITROGEN 6 MG/DL (7-18); CHLORIDE 105 MEQ/L (98-107); GLOMERULAR FILTRATION RATE 276 ML/MIN (>89); MAGNESIUM 2.2 MG/DL (1.5-2.5); POTASSIUM 3.7 MEQ/L (3.5-5.1); SODIUM (NA) 141 MEQ/L (136-145); TOTAL BILIRUBIN ADULT 0.7 MG/DL (0.2-1.0); URIC ACID 1.2 MG/DL (2.6-6.0)
--- NOTE | 2016-12-30 05:40 | RADRPT ---
EXAM DATE/TIME: 12/30/2016 04:06 [facility] COMPARISON: CHEST SINGLE AP, December 29, 2016, 4:33. INDICATIONS : Shortness of breath. MEDICAL HISTORY : None. SURGICAL HISTORY : None. ENCOUNTER: Subsequent ACUITY: 2 weeks PAIN SCORE: Non-responsive. LOCATION: Bilateral chest FINDINGS: Tracheostomy tube and left subclavian centimeters catheter identified. There is mild hyperinflation. The lungs are clear. Heart size normal. Osseous structures are intact. CONCLUSION: No acute disease. Scotty Mederos MD on December 30, 2016 at 5:38 Board Certified Radiologist. This report was verified electronically.
[2016-12-30] MEDS ORDERED: NOREPINEPHRINE 4 MG/4 ML AMP ONE (06:00)
[2016-12-30] MEDS: PROPRANOLOL HCL 10 MG TAB PO SCH ×3 (06:07→22:00)
[2016-12-30] MEDS: VANCOMYCIN INJ 750 MG in SODIUM CHLOR 0.9% 250 ML INJ 250 ML IV SCH ×2 (06:08→15:26)
[2016-12-30] MEDS: NOREPINEPHRINE INJ 4 MG in SODIUM CHLOR 0.9% 250 ML INJ 250 ML IV PRN ×2 (06:08→08:08)
[2016-12-30] MEDS: BISACODYL 10 MG SUPP RECTAL SCH (08:30)
[2016-12-30] MEDS: LACTULOSE SYRUP 20 GM/30 ML CUP PO SCH (08:30)
[2016-12-30] MEDS: DOCUSATE SODIUM 50 MG/SENNA 8.6 MG TAB PO SCH ×2 (08:31→21:00)
[2016-12-30] MEDS: BROMOCRIPTINE MESYLATE 2.5 MG TAB PO SCH ×2 (08:31→21:00)
[2016-12-30] MEDS: FUROSEMIDE 20 MG/2 ML VIAL IV PUSH SCH ×2 (08:31→17:09)
[2016-12-30] MEDS: SODIUM CHLORIDE 0.9% FLUSH 5 ML FLUSH IVF SCH ×2 (09:39→21:00)
[2016-12-30] MEDS: CHLORHEXIDINE 0.12% (ORAL KIT) 15 ML CUP MT SCH ×2 (09:40→20:00)
[2016-12-30] MEDS: ARTIFICIAL TEARS OPTH OINT 3.5 APPLIC/3.5 GM TUBO EACH EYE SCH ×2 (09:40→21:00)
[2016-12-30] MEDS ORDERED: IOHEXOL 350 MG/ML 10 ML VIAL (for RAD DIAG) IV ONE (10:23)
--- NOTE | 2016-12-30 10:31 | HHI.GIFU ---
Subjective Remarks Patient just got back from radiology, still on the vent, PEG tube is working and flushing good per nurse, site looks good, TF planned to be initiated tonight. (Dana Wyatt) Objective Vitals I&O Vital Signs Date Time Temp Pulse Resp B/P Pulse Ox O2 Delivery O2 Flow Rate FiO2 12/30/16 08:59 100 30 12/30/16 08:00 30 12/30/16 08:00 113 12/30/16 08:00 99.2 104 20 180/100 100 12/30/16 06:00 121 12/30/16 04:00 99.8 84 20 172/96 100 12/30/16 04:00 86 12/30/16 04:00 30 12/30/16 03:31 100 30 12/30/16 02:00 97 12/30/16 00:58 100 30 12/30/16 00:15 16 12/30/16 00:00 30 12/30/16 00:00 92 12/30/16 00:00 102.0 92 20 146/86 100 12/29/16 22:00 105 12/29/16 21:42 100 30 12/29/16 20:00 100.3 114 18 172/98 100 12/29/16 20:00 30 12/29/16 20:00 105 12/29/16 19:12 15 12/29/16 18:00 130 12/29/16 16:07 30 30 12/29/16 16:00 30 12/29/16 16:00 99.6 110 22 168/100 100 12/29/16 16:00 107 12/29/16 14:00 114 12/29/16 12:37 21 12/29/16 12:32 100 30 12/29/16 12:00 30 12/29/16 12:00 99.7 122 24 170/100 97 12/29/16 12:00 122 I/O 12/29/16 12/29/16 12/29/16 12/30/16 12/30/16 12/30/16 07:00 15:00 23:00 07:00 15:00 23:00 Intake Total 1660 ml 1371 ml 1430 ml 1419 ml Output Total 1303 ml 3495 ml 4500 ml 1640 ml Balance 357 ml -2124 ml -3070 ml -221 ml Intake IV Total 1660 ml 1371 ml 1430 ml 1419 ml Tube Feeding 0 ml 0 ml Output Urine Total 1300 ml 3450 ml 4450 ml 1600 ml Drainage Total 3 ml 45 ml 50 ml 40 ml # Bowel Movements 0 0 0 0 Laboratory Laboratory Tests Test 12/29/16 12/29/16 12/29/16 12/30/16 12:00 14:15 19:50 04:10 Sodium Level 137 138 139 141 Urine Color COLORLESS Urine Turbidity CLEAR Urine pH 7.0 Urine Specific [place] 1.006 Urine Protein NEG Urine Glucose (UA) NEG Urine Ketones NEG Urine Occult Blood NEG Urine Nitrite NEG Urine Bilirubin NEG Urine Urobilinogen LESS THAN 2.0 Urine Leukocyte Esterase NEG Urine RBC 5 Urine WBC LESS THAN 1 Urine Mucus FEW Microscopic Urinalysis Comment CATH-CULT NOT IND Urine Osmolality 302 Urine Random Sodium 131 Serum Osmolality 284 287 290 White Blood Count 14.4 Red Blood Count 3.46 Hemoglobin 10.6 Hematocrit 29.9 Mean Corpuscular Volume 86.6 Mean Corpuscular Hemoglobin 30.5 Mean Corpuscular Hemoglobin 35.3 Concent Red Cell Distribution Width 14.5 Platelet Count 602 Mean Platelet Volume 8.0 Neutrophils (%) (Auto) 80.6 Lymphocytes (%) (Auto) 9.8 Monocytes (%) (Auto) 7.7 Eosinophils (%) (Auto) 1.1 Basophils (%) (Auto) 0.8 Neutrophils # (Auto) 11.6 Lymphocytes # (Auto) 1.4 Monocytes # (Auto) 1.1 Eosinophils # (Auto) 0.2 Basophils # (Auto) 0.1 CBC Comment DIFF FINAL Differential Comment Potassium Level 3.7 Chloride Level 105 Carbon Dioxide Level 26.8 Anion Gap 9 Blood Urea Nitrogen 6 Creatinine 0.30 Estimat Glomerular Filtration 276 Rate Random Glucose 117 Uric Acid 1.2 Calcium Level 8.1 Phosphorus Level 2.8 Magnesium Level 2.2 Total Bilirubin 0.7 Aspartate Amino Transf 53 (AST/SGOT) Alanine Aminotransferase 77 (ALT/SGPT) Alkaline Phosphatase 117 Total Protein 6.7 Albumin 2.6 Test 12/30/16 08:00 Random Cortisol 36.7 Date/Time Procedure Status Source Growth 12/27/16 21:10 Aerobic Blood Culture - Preliminary Resulted Blood Peripheral NO GROWTH IN 2 DAYS 12/27/16 21:10 Anaerobic Blood Culture - Preliminary Resulted Blood Peripheral NO GROWTH IN 2 DAYS 12/27/16 16:55 Gram Stain - Final Resulted Sputum Endotracheal 12/27/16 16:55 Sputum Culture - Preliminary Resulted Staphylococcus Aureus 12/27/16 16:20 Urine Culture - Final Complete Urine Catheterized Urine NO GROWTH IN 48 HOURS. 12/27/16 15:30 Urine Culture Received Urine Catheterized Urine Pending 12/27/16 14:30 Fungal Smear Received Cerebral Spinal Fluid Shunt Fluid Pending 12/27/16 14:30 Fungal Culture Received Cerebral Spinal Fluid Shunt Fluid Pending Imaging Last Impressions Chest X-Ray 12/30/16 0600 Signed Impressions: Service Date/Time: Friday, December 30, 2016 04:06 - CONCLUSION: No acute disease. Scotty Mederos MD Transcranial Doppler Study Complete 12/29/16 0000 Signed Impressions: Service Date/Time: Thursday, December 29, 2016 09:42 - CONCLUSION: 1. Mild spasm involving the right middle cerebral artery and anterior cerebral artery. Wander Brooke MD Head CTA 12/28/16 1000 Signed Impressions: Service Date/Time: Wednesday, December 28, 2016 12:27 - CONCLUSION: Slight decrease in caliber of intracranial vasculature suggesting vasospasm. Nilson Ambrosio MD Cerebral Arteriogram 12/28/16 0000 Signed Impressions: Service Date/Time: Wednesday, December 28, 2016 14:56 - CONCLUSION: Uncomplicated infusion for spasmolysis. Wander Brooke MD Neck CTA 12/26/16 0000 Signed Impressions: Service Date/Time: Monday, December 26, 2016 09:05 - CONCLUSION: 1. Negative CT angiography of the cervicobrachial arch Wander Brooke MD Head CT 12/26/16 0000 Signed Impressions: Service Date/Time: Monday, December 26, 2016 08:51 - CONCLUSION: Generalized increase in edema. CTA is pending. John Dean MD FACR Abdomen X-Ray 12/26/16 0000 Signed Impressions: Service Date/Time: Monday, December 26, 2016 17:00 - CONCLUSION: 1. Dobbhoff tube in the body of the stomach Wander Brooke MD Gall Bladder Ultrasound 12/24/16 0000 Signed Impressions: Service Date/Time: Saturday, December 24, 2016 13:43 - CONCLUSION: 1. No evidence of cholelithiasis or ductal dilatation. Hepatic contusion right lobe of the liver appear smaller than prior CT. Wander Brooke MD Abdomen/Pelvis CT 12/24/16 0000 Signed Impressions: Service Date/Time: December 03:39 - CONCLUSION: 1. Healing liver laceration of the posterior right hepatic lobe. No active bleeding. 2. Small nonspecific low attenuation free fluid in the pelvic cavity. 3. No obstruction or inflammatory changes are demonstrated of the GI tract. 4. Patient has had midline laparotomy since the comparison trauma CT. 5. There is patchy consolidation of both visualized lung bases. Tiny left pneumothorax is also visible. 6. The Dobbhoff feeding tube is coiled in the stomach. Tip is pointing downward and to the right in the distal body. 7. Subacute bilateral pubic ramus fractures without significant healing seen as of yet. Paul Biggs MD Thoracic Spine CT 12/15/16 075 Signed Impressions: Service Date/Time: Thursday, December 15, 2016 08:11 - CONCLUSION: Intact thoracic spine Sp Enrique MD Pelvis X-Ray 12/15/16749 Signed Impressions: Service Date/Time: Thursday, December 15, 2016 07:40 - CONCLUSION: Nondisplaced fracture right superior pubic ramus and accordion-type fracture of the left inferior pubic ramus. Sp Enrique MD Maxillofacial CT 12/15/16 075 Signed Impressions: Service Date/Time: Thursday, December 15, 2016 08:16 - CONCLUSION: 1. No acute facial bone fracture identified. 2. Subdural hemorrhage is noted along the left hemisphere. Valeriano Dean MD Lumbar Spine CT 12/15/16 075 Signed Impressions: Service Date/Time: Thursday, December 15, 2016 08:11 - CONCLUSION: Nondisplaced fractures left transverse process at L2, L3, L4. Sp Enrique MD Chest CT 12/15/16 075 Signed Impressions: Service Date/Time: Thursday, December 15, 2016 08:11 - CONCLUSION: Probable fracture right rib #7 and 8 anterior laterally. No acute cardiopulmonary process with no evidence of pneumothorax. Upper abdomen reveals laceration tear right lobe of the liver Sp Enrique MD Cervical Spine CT 12/15/16 075 Signed Impressions: Service Date/Time: Thursday, December 15, 2016 08:11 - CONCLUSION: Normal examination. Intact cervical spine Sp Enrique MD Physical Exam NECK: Neck is supple, no JVD, no lymphadenopathy. CHEST: vented via trach CARDIAC: Regular rate and rhythm ABDOMEN: Soft, nondistended, nontender; no hepatosplenomegaly; bowel sounds are present in all four quadrants. PEG tube EXTREMITIES: No clubbing, cyanosis, or edema. PREP ROOM SUPERVISOR: awake on a vent. (Dana Wyatt) Assessment and Plan Plan ASSESSMENT: - Dysphagia, FEN. S/P EGD/PEG (12/29/16) ----> gastritis, successful PEG placement - TBI, SDH. S/P ventriculostomy, craniotomy with evacuation of hematoma.exploratory lap---> liver laceration - Acute respiratory failure, S/P Tracheostomy 12/24/16. Vent per [facility] - Fevers, S/P imaging, repeat cx, lp, Abx per ID PLAN: - TF per dietary recommendation (Jevity 1.5 at 60cc/hr) - Flush tube every shift - GI will sign off - Pt seen and examined by Dr. Valverde and myself and this note is written on his behalf (Dana Wyatt) Physician Comments Seen and examined with SITE LEASING AGENT, s/p peg. Flush with water Q shift, increase TF as needed to meet goals. Will sign off, reconsult as needed. Thank you (Colette Valverde MD) Dana Wyatt Dec 30, 2016 10:31 Colette Valverde MD Dec 30, 2016 17:10
[2016-12-30] MEDS ORDERED: EPINEPHrine HCL (1:10,000) 1 MG/10 ML SYRINGE ONE (10:47)
[2016-12-30] MEDS ORDERED: ATROPINE SULFATE 1 MG/10 ML SYRINGE ONE (10:48)
[2016-12-30] MEDS ORDERED: LIDOCAINE HCL 2% 100 MG/5 ML SYRINGE ONE (10:48)
--- NOTE | 2016-12-30 10:51 | RADRPT ---
EXAM DATE/TIME: 12/30/2016 10:00 [facility] COMPARISON: CT BRAIN W/O CONTRAST, December 23, 2016, 5:37. CT BRAIN W/O CONTRAST, December 17, 2016, 8:49. CT BR AIN W/O CONTRAST, December 15, 2016, 8:11. CTA BRAIN W 3D RECON, December 28, 2016, 12:27. CT BRAIN W/O CONTRAST, December 26, 2016, 8:51. INDICATIONS : Trauma patient with left-sided subdural hematoma status post craniotomy and shunt catheter placement. Vasospasm. RADIATION DOSE: 56.35 CTDIvol (mGy) MEDICAL HISTORY : Non-responsive. SURGICAL HISTORY : Craniotomy. ENCOUNTER: Subsequent ACUITY: 3 weeks PAIN SCALE: Non-responsive LOCATION: cranial TECHNIQUE: Multiple contiguous axial images were obtained of the head. Using automated exposure control and adj ustment of the mA and/or kV according to patient size, radiation dose was kept as low as reasonably a chievable to obtain optimal diagnostic quality images. FINDINGS: Postsurgical changes are again noted status post left frontal and parietal craniotomy with low-d ensity edema noted involving portions of the right temporal, parietal and occipital lobes. This is no t significantly changed. The ventricular shunt catheter remains in place via a right frontal approach with the tip in the origin of the third ventricle. The ventricular system remains stable in appearan ce. The cystic hygroma over the left frontal and parietal lobes has increased in size. There is no ac upper [place] hemorrhage or mass effect. CONCLUSION: 1. No acute hemorrhage or mass effect. 2. No significant change in the cerebral edema. 3. Interval increase in the size of the left subdural hygroma. 4. Ventricular shunt catheter remains in place with stable appearance of the ventricular system. Ray Lee MD on December 30, 2016 at 10:41 Board Certified Radiologist. This report was verified electronically.
--- NOTE | 2016-12-30 10:56 | HHI.NPPN ---
Subjective Interval History She had head CT this morning. Sodium has not improved despite interventions. ( Rosie Vicente) Review of Systems General General Remarks unable to evaluate due to mental status (Rosie Vicente) Objective Data Data 12/29/16 12/30/16 19:00 07:00 Intake Total 1371 ml 2849 ml Output Total 3495 ml 6140 ml Balance -2124 ml -3291 ml Intake IV Total 1371 ml 2849 ml Tube Feeding 0 ml Output Urine Total 3450 ml 6050 ml Drainage Total 45 ml 90 ml # Bowel Movements 0 0 Vital Signs Date Time Temp Pulse Resp B/P Pulse Ox O2 Delivery O2 Flow Rate FiO2 12/30/16 09:50 100 100 12/30/16 08:59 100 30 12/30/16 08:00 30 12/30/16 08:00 113 12/30/16 08:00 99.2 104 20 180/100 100 12/30/16 06:00 121 12/30/16 04:00 99.8 84 20 172/96 100 12/30/16 04:00 86 12/30/16 04:00 30 12/30/16 03:31 100 30 12/30/16 02:00 97 12/30/16 00:58 100 30 12/30/16 00:15 16 12/30/16 00:00 30 12/30/16 00:00 92 12/30/16 00:00 102.0 92 20 146/86 100 12/29/16 22:00 105 12/29/16 21:42 100 30 12/29/16 20:00 100.3 114 18 172/98 100 12/29/16 20:00 30 12/29/16 20:00 105 12/29/16 19:12 15 12/29/16 18:00 130 12/29/16 16:07 30 30 12/29/16 16:00 30 12/29/16 16:00 99.6 110 22 168/100 100 12/29/16 16:00 107 12/29/16 14:00 114 12/29/16 12:37 21 12/29/16 12:32 100 30 12/29/16 12:00 30 12/29/16 12:00 99.7 122 24 170/100 97 12/29/16 12:00 122 (Rosie Vicente) -: 12/30/16 0410 12/30/16 0410 Imaging Last 72 hours Impressions Chest X-Ray 12/30/16 0600 Signed Impressions: Service Date/Time: Friday, December 30, 2016 04:06 - CONCLUSION: No acute disease. Scotty Mederos MD Chest X-Ray 12/29/16 0600 Signed Impressions: Service Date/Time: Thursday, December 29, 2016 04:33 - CONCLUSION: No significant change has occurred. Scotty Mederos MD Transcranial Doppler Study Complete 12/29/16 0000 Signed Impressions: Service Date/Time: Thursday, December 29, 2016 09:42 - CONCLUSION: 1. Mild spasm involving the right middle cerebral artery and anterior cerebral artery. Wander Brooke MD Head CTA 12/28/16 1000 Signed Impressions: Service Date/Time: Wednesday, December 28, 2016 12:27 - CONCLUSION: Slight decrease in caliber of intracranial vasculature suggesting vasospasm. Nilson Ambrosio MD Chest X-Ray 12/28/16 0600 Signed Impressions: Service Date/Time: Wednesday, December 28, 2016 05:31 - CONCLUSION: Stable chest x-ray without an acute finding identified. No pneumothorax is seen. Paul Warren MD Cerebral Arteriogram 12/28/16 0000 Signed Impressions: Service Date/Time: Wednesday, December 28, 2016 14:56 - CONCLUSION: Uncomplicated infusion for spasmolysis. Wander Brooke MD Tubes & Lines: [place] Tubes & Lines Comment a line left radial (Rosie Vicente) Physical Exam General Appearance: Well Developed, Well Nourished (Rosie Vicente) Eyes Eye Exam: Pupils Equal (Rosie Vicente) Throat Throat Exam: Oral Mucosa [place] & Moist Throat Remarks trach (Rosie Vicente) Neck Neck Exam: Neck Supple (Rosie Vicente) Pulmonary Resp Exam: Clear Bilaterally, Breath Sounds Equal (Rosie Vicente) Cardiology CV Exam: Regular, Normal Sinus Rhythm (Rosie Vicente) Gastrointestinal/Abdomen GI Exam: Soft, Non-Tender GI Remarks PEG (Rosie Vicente) Genitourinary Exam: Clear Urine (Rosie Vicente) Musculoskeletal MS Exam: Joints Intact, Unable to Ambulate (Rosie Vicente) Integumentary Skin Exam: Clear, Warm, Dry, Intact (Rosie Vicente) Extremeties Extremities Exam: No Edema, Pedal Pulses Palpable (Rosie Vicente) Neurologic Neuro Exam: Awake Neuro Remarks tremor left upper extremity (Rosie Vicente) Assessment/Plan Discussed Condition With: Spouse Problem List: (1) Subdural hematoma Plan: neurosurgery is following goal is permissive hypernatremia to assist with cerebral edema, goal sodium level 145-150 3% saline has not been effective despite high doses, loop diuretic added without effect low uric acid may suggest SIADH one suggestion is to try low dose Tolvaptan, 7.5 mg daily, checking serum sodium every 3-4 hrs no IVF required (stop 3%), no fluid restriction effects can be reversed with desmopressin if needed she is on vasopressin for permissive hypertension she is on cefepime, Zyvox, Levaquin and micafungin for VAP (with MRSA) and UTI (Rosie Vicente) Plan patient was seen and examined. Above plan was formulated by me. Agree with above assessment and plan. Discussed with Dr. Miller. (Mat Martines MD) Rosie Vicente Dec 30, 2016 10:56 Mat Martines MD Dec 30, 2016 19:27
[2016-12-30] MEDS: LEVOFLOXACIN 750 MG PREMIX INJ 150 ML IV SCH (11:09)
--- NOTE | 2016-12-30 12:01 | RADRPT ---
EXAM DATE/TIME: 12/30/2016 10:03 [facility] COMPARISON: CTA BRAIN W 3D RECON, December 26, 2016, 9:05. CTA BRAIN W 3D RECON, December 28, 2016, 12:27. INDICATIONS : Vasospasm. IV CONTRAST: 50 cc Omnipaque 350 (iohexol) IV RADIATION DOSE: 24.19 CTDIvol (mGy) MEDICAL HISTORY : Non-responsive. SURGICAL HISTORY : Craniotomy. ENCOUNTER: Subsequent ACUITY: 3 weeks PAIN SCALE: Non-responsive LOCATION: cranial TECHNIQUE: Volumetric scanning was performed using a multi-row detector CT scanner. The data was post processed with a variety of visualization algorithms including full volume maximum intensity projection, multi -planar sliding thin slab reformation, curved planar reformation, and surface rendering techniques. Using automated exposure control and adjustment of the mA and/or kV according to patient size, radiat ion dose was kept as low as reasonably achievable to obtain optimal diagnostic quality images. FINDINGS: There is excellent visualization of the major intracranial arteries out to the second-order branch ve ssels. Overall, the caliber of the muscles intracranially are stable from the most recent examination from December 28. However, when compared to the December 26 exam, I do believe there is persistent vas ospasm in the posterior commuting artery on the left. 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 The caliber of the main anterior, middle and posterior cerebral arteries r emained stable. No aneurysmal disease. CONCLUSION: 1. Stable caliber of the intracranial vessels with suspected vasospasm predominantly in the posterior communicating artery on the left (unchanged from 12-28-2016). 2. I believe the main anterior, middle and posterior cerebral vessels remain normal in caliber with n o significant vasospasm. Peter Valenzuela MD on December 30, 2016 at 11:50 Board Certified Radiologist. This report was verified electronically.
[2016-12-30] MEDS: IBUPROFEN SUSP 100 MG/5 ML UDC PO PRN (12:20)
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
[2016-12-30] MEDS ORDERED: PHARMACY ORDERED LAB XX ONE (14:45)
[2016-12-30] MEDS: PANTOPRAZOLE SODIUM 40 MG VIAL IV SCH (15:52)
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
[2016-12-30] MEDS: MAGNESIUM HYDROXIDE SUSP 30 ML CUP PO SCH (21:00)
[2016-12-30] MEDS: VANCOMYCIN 1,000 MG/NS 250 ML IV SCH ×2 (22:00)
[2016-12-30] MEDS: ACETAMINOPHEN 325 MG/10.15 ML UDC NG PRN (22:10)
[2016-12-31] VITALS (17 sets, daily range): BP systolic 165–187; BP diastolic 87–101; PULSE 80–133; RESP 12–21; TEMP 98.9–101.3; O2SAT 97–100
[2016-12-31] MEDS: levETIRAcetam INJ 500 MG in SODIUM CHLORIDE 0.9% INJ 100 ML IV SCH ×2 (03:34→16:03)
[2016-12-31] MEDS: ACETAMINOPHEN 325 MG/10.15 ML UDC NG PRN (03:34)
[2016-12-31] MEDS: NOREPINEPHRINE INJ 4 MG in SODIUM CHLOR 0.9% 250 ML INJ 250 ML IV PRN ×2 (04:23→22:41)
[2016-12-31] MEDS: 3% SALINE INJ 500 ML IV SCH ×3 (04:24→20:48)
[2016-12-31 05:02] LABS: HEMATOCRIT 28.6 % (35.0-46.0); MEAN CELL VOLUME 87.2 FL (80.0-100.0); MEAN CORPUSCULAR HEMOGLOBIN 29.9 PG (27.0-34.0); MEAN CORPUSCULAR HGB CONC 34.3 % (32.0-36.0); PLATELET COUNT 609 TH/MM3 (150-450); RED BLOOD COUNT 3.28 MIL/MM3 (4.00-5.30); RED CELL DISTRIBUTION WIDTH 14.4 % (11.6-17.2); REVIEW FLAG FINAL; WHITE BLOOD COUNT 13.2 TH/MM3 (4.0-11.0)
[2016-12-31] MEDS: VANCOMYCIN 1,000 MG/NS 250 ML IV SCH ×6 (05:02→21:47)
[2016-12-31 05:03] LABS: BLOOD GAS BASE EXCESS 2.5 mmol/L (-2-2); BLOOD GAS CARBOXYHEMOGLOBIN 1.2 % (0-4); BLOOD GAS HCO3 26 mmol/L (22-26); BLOOD GAS METHEMOGLOBIN 0.8 % (0-2); BLOOD GAS O2 HGB SATURATION 97 % (90-100); BLOOD GAS OXYGEN CONTENT 13.9 Vol % (12.0-20.0); BLOOD GAS PCO2 36 mmHg (38-42); BLOOD GAS PO2 150 mmHg (61-120); BLOOD GAS TOTAL HGB 9.9 G/DL (12.0-16.0); TEMP CORR TO 98.6
[2016-12-31] MEDS: PROPRANOLOL HCL 10 MG TAB PO SCH ×3 (05:03→21:46)
[2016-12-31 05:04] LABS: CRITICAL VALUE NO; OXYGEN DEVICE VENTILATOR
[2016-12-31 05:05] LABS: DRAW SITE ART LINE; FIO2 30 %; STAT NO; VENT SETTINGS PRVC/AC/
[2016-12-31 05:19] LABS: BICARBONATE 28.8 MEQ/L (21.0-32.0); MAGNESIUM 2.2 MG/DL (1.5-2.5); POTASSIUM 3.3 MEQ/L (3.5-5.1)
[2016-12-31] MEDS: POTASSIUM CL 40 MEQ/30 ML LIQ UDC PO/TUBE PRN (05:32)
--- NOTE | 2016-12-31 06:33 | RADRPT ---
EXAM DATE/TIME: 12/31/2016 05:23 [facility] COMPARISON: CHEST SINGLE AP, December 30, 2016, 4:06. INDICATIONS : Shortness of breath. MEDICAL HISTORY : None. SURGICAL HISTORY : Craniotomy. ENCOUNTER: Subsequent ACUITY: 2 weeks PAIN SCORE: Non-responsive. LOCATION: Bilateral chest FINDINGS: A single view of the chest demonstrates the lungs to be symmetrically aerated without evidence of mas s, infiltrate or effusion. The cardiomediastinal contours are unremarkable. Osseous structures are intact. Tracheostomy tube and left subclavian lines again seen. CONCLUSION: Clear lungs. Scotty Mederos MD on December 31, 2016 at 6:31 Board Certified Radiologist. This report was verified electronically.
[2016-12-31] MEDS: MEPERIDINE HCL 25 MG/ML VIAL IV PUSH PRN (06:41)
[2016-12-31] MEDS: CHLORHEXIDINE 0.12% (ORAL KIT) 15 ML CUP MT SCH ×2 (07:56→20:01)
[2016-12-31] MEDS: SODIUM CHLORIDE 0.9% FLUSH 5 ML FLUSH IVF SCH ×2 (09:00→20:01)
[2016-12-31] MEDS: ARTIFICIAL TEARS OPTH OINT 3.5 APPLIC/3.5 GM TUBO EACH EYE SCH ×2 (09:00→20:01)
[2016-12-31] MEDS: LACTULOSE SYRUP 20 GM/30 ML CUP PO SCH (09:25)
[2016-12-31] MEDS: BISACODYL 10 MG SUPP RECTAL SCH (09:29)
[2016-12-31] MEDS: FUROSEMIDE 20 MG/2 ML VIAL IV PUSH SCH ×2 (09:29→17:17)
[2016-12-31] MEDS: DOCUSATE SODIUM 50 MG/SENNA 8.6 MG TAB PO SCH ×2 (09:29→20:02)
[2016-12-31] MEDS: BROMOCRIPTINE MESYLATE 2.5 MG TAB PO SCH ×2 (09:30→20:01)
[2016-12-31] MEDS: IBUPROFEN SUSP 100 MG/5 ML UDC PO PRN (10:13)
[2016-12-31] MEDS: LEVOFLOXACIN 750 MG PREMIX INJ 150 ML IV SCH (10:13)
--- NOTE | 2016-12-31 11:01 | HHI.PR ---
Neuropsych Emotional Emotional: UnabletoAssess: Emotional, Anxious/Fearful, Depressed/Sad, Hostile/ Resentful, Irritable/Angry/Frustrate, Labile, Constricted/Blunted Behavior Behavior: Unable to Asses: Behavior, Coping/Acceptance, Cooperative w/ Treatment, Motivation, Frustration Tolerance/[place], Impulsive/Agitated, Suicidal/ Homicidal Risk Cognitive Cognitive: Unable to Asses: Cognitive, Attention/Concentration, Confused/ Orientation, Insight/Awareness, Judgement/Problem-Solving, Memory Psychosocial Psychosocial: Intact: Psychosocial, Family/Other Adjustment, Realistic Expectation, Self-Esteem/Confidence Progress Notes/Response to Tx Contents of Sessions: Level of Consciousness Time with Patient: 15 minutes Premorbid psychological status Premorbid Cognitive, Emotional and Behavioral Status: Stable. 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 The patient has no prior psychiatric difficulties, as described above. Substance abuse history is unremarkable. She is , and [facility]. Behavioral Reactions of Patient and Family/Support System: Tenuous. The patients family is experiencing ongoing issues of adjustment given the nature of the injury, and this aspect of recovery will require ongoing monitoring. Emotional/Behavioral Status of Patient and Family/Support System: Tenuous. Pertinent issues, if appropriate to this patients clinical care, are described in detail above. Maximizing acute care outcome This patient is very early into her recovery from her sustained traumatic brain injury, and presently medical recovery takes precedence over neurobehavioral recovery. As she improves, it is recommended that the patient be monitored for emergent behavioral impulsivity. This patients neuropathological challenges may limit their rehabilitation potential going forward, and these challenges will require specialized therapeutic skills to maximize outcome. Additionally, the patients family is experiencing ongoing issues of adjustment given the traumatic nature of the injury, and they will need ongoing psychological assistance, which I will provide. Anticipated Problems Presently, the most pressing concern is her medical recovery. As she progresses , ongoing areas of concern will likely include behavioral impulsivity, lack of insight and judgment, which is expected to improve with time and treatment. Presently, the patient in coma, unresponsive and sedated. Treatment Plan This clinician will continue to follow with you throughout the course of this patients rehabilitation treatment, and I will be available to meet with the patients family/support system to facilitate their understanding and the ongoing care of their family member. The goals of neuropsychological intervention shall be both educational and supportive to the family/support system as is deemed clinically appropriate. [facility] Level: II:General response-total assist Impression This patient suffered a severe traumatic brain injury, with the likely probability of persistent neurocognitive impairment, depending on multiple medical factors. Diagnosis: (1) Major neurocognitive disorder as late effect of traumatic brain injury without behavioral disturbance Status: Acute Progress Note Narrative Ongoing follow-up of patient, who was seen within the context of daily trauma rounding. Patient continues to exhibit improvement in function. Discussed with , who was bedside. I will continue to follow. Elver Cook PhD Dec 31, 2016 11:01 am
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
--- NOTE | 2016-12-31 11:16 | HHI.NPPN ---
Subjective Interval History Continues on 3% saline. Sodium 148 today. She is febrile, tachycardic. ( Rosie Vicente) Review of Systems General General Remarks unable to evaluate due to mental status (Rosie Vicente) Objective Data Data 12/30/16 12/31/16 19:00 07:00 Intake Total 1575 ml 2752 ml Output Total 3300 ml 2925 ml Balance -1725 ml -173 ml Intake IV Total 1475 ml 2425 ml Tube Feeding 100 ml 327 ml Output Urine Total 3300 ml 2925 ml Drainage Total 0 ml 0 ml # Bowel Movements 0 1 Vital Signs Date Time Temp Pulse Resp B/P Pulse Ox O2 Delivery O2 Flow Rate FiO2 12/31/16 10:00 117 12/31/16 08:50 30 12/31/16 08:50 100 30 12/31/16 08:00 116 12/31/16 08:00 98.9 116 13 187/97 100 12/31/16 06:00 80 12/31/16 04:44 100 30 12/31/16 04:00 30 12/31/16 04:00 99 12/31/16 04:00 100.9 99 18 170/96 100 12/31/16 02:00 106 12/31/16 00:56 98 30 12/31/16 00:00 104 12/31/16 00:00 100.1 104 21 166/99 99 12/31/16 00:00 30 12/30/16 22:38 100 30 12/30/16 22:00 125 12/30/16 20:00 100.5 123 16 157/90 100 12/30/16 20:00 121 12/30/16 20:00 30 12/30/16 18:00 118 12/30/16 16:45 100 30 12/30/16 16:45 30 12/30/16 16:00 30 12/30/16 16:00 129 12/30/16 16:00 99.4 106 13 167/87 100 12/30/16 14:00 129 12/30/16 13:25 18 12/30/16 12:06 100 30 12/30/16 12:00 100.4 130 24 155/91 100 12/30/16 12:00 129 12/30/16 12:00 30 (Rosie Vicente) -: 12/31/16 0450 12/31/16 0450 Imaging Last 72 hours Impressions Chest X-Ray 12/31/16 0500 Signed Impressions: Service Date/Time: Saturday, December 31, 2016 05:23 - CONCLUSION: Clear lungs. Scotty Mederos MD Head CTA 12/30/16599 Signed Impressions: Service Date/Time: Friday, December 30, 2016 10:03 - CONCLUSION: 1. Stable caliber of the intracranial vessels with suspected vasospasm predominantly in the posterior communicating artery on the left (unchanged from 12-28-2016). 2. I believe the main anterior, middle and posterior cerebral vessels remain normal in caliber with no significant vasospasm. Peter Valenzuela MD Head CT 12/30/16599 Signed Impressions: Service Date/Time: Friday, December 30, 2016 10:00 - CONCLUSION: 1. No acute hemorrhage or mass effect. 2. No significant change in the cerebral edema. 3. Interval increase in the size of the left subdural hygroma. 4. Ventricular shunt catheter remains in place with stable appearance of the ventricular system. Ray Lee MD Chest X-Ray 12/30/16599 Signed Impressions: Service Date/Time: Friday, December 30, 2016 04:06 - CONCLUSION: No acute disease. Scotty Mederos MD Upper Extremity Ultrasound 12/30/16 Signed Impressions: Service Date/Time: Friday, December 30, 2016 11:22 - CONCLUSION: Occlusive thrombus in the right basilic vein. Ray Lee MD Transcranial Doppler Study Complete 12/30/16 Signed Impressions: Service Date/Time: Friday, December 30, 2016 10:12 - CONCLUSION: Improving hemodynamics when compared to the prior study. Wander Brooke MD Chest X-Ray 12/29/16599 Signed Impressions: Service Date/Time: Thursday, December 29, 2016 04:33 - CONCLUSION: No significant change has occurred. Scotty Mederos MD Transcranial Doppler Study Complete 12/29/16 Signed Impressions: Service Date/Time: Thursday, December 29, 2016 09:42 - CONCLUSION: 1. Mild spasm involving the right middle cerebral artery and anterior cerebral artery. Wander Brooke MD Tubes & Lines: [place] Tubes & Lines Comment a line left radial, ventriculostomy (Rosie Vicente TRANSPORTATION DRIVER) Physical Exam General Appearance: Well Developed, Well Nourished Appearance Remarks tremors, fever/chills with rigors (Rosie Vicente. TRANSPORTATION DRIVER) Eyes Eye Exam: Pupils Equal (Rosie Vicente BStephany TRANSPORTATION DRIVER) Throat Throat Exam: Oral Mucosa [place] & Moist Throat Remarks trach (Rosie Vicente TRANSPORTATION DRIVER) Neck Neck Exam: Neck Supple (Rosie Vicente. TRANSPORTATION DRIVER) Pulmonary Resp Exam: Clear Bilaterally, Breath Sounds Equal (Rosie Vicente. TRANSPORTATION DRIVER) Cardiology CV Exam: Regular, Normal Sinus Rhythm, Tachycardia (Rosie Vicente. TRANSPORTATION DRIVER) Gastrointestinal/Abdomen GI Exam: Soft, Non-Tender, Bowel Sounds Present GI Remarks PEG (Rosie Vicente B. TRANSPORTATION DRIVER) Genitourinary Exam: Clear Urine (Rosie Vicente TRANSPORTATION DRIVER) Musculoskeletal MS Exam: Joints Intact, Unable to Ambulate (Rosie Vicente TRANSPORTATION DRIVER) Integumentary Skin Exam: Clear, Warm, Dry, Intact (Rosie Vicente TRANSPORTATION DRIVER) Extremeties Extremities Exam: No Edema, Pedal Pulses Palpable (Rosie Vicente TRANSPORTATION DRIVER) Neurologic Neuro Exam: Awake Neuro Remarks tremor left upper extremity (Rosie Vicente) Assessment/Plan Discussed Condition With: Spouse Assessment Summary: Hypertension Electrolyte Assessment: Hypernatremia Problem List: (1) Subdural hematoma Plan: neurosurgery is following, sodium is higher today goal is permissive hypernatremia to assist with cerebral edema, goal sodium level 145-150 3% saline reduced to 60 ml/hr, continue Lasix BID IV low uric acid may suggest SIADH; Tolvaptan can be considered, low dose, if current therapy fails she is on vasopressin for permissive hypertension, goal systolic 160-180 mmHg she is on cefepime, Zyvox, Levaquin and micafungin for VAP (with MRSA) and UTI (Rosie Vicente TRANSPORTATION DRIVER) Problem List: (1) Subdural hematoma Plan: neurosurgery is following, sodium is higher today goal is permissive hypernatremia to assist with cerebral edema, goal sodium level 145-150 3% saline reduced to 60 ml/hr, continue Lasix BID IV low uric acid may suggest SIADH; Tolvaptan can be considered, low dose, if current therapy fails she is on vasopressin for permissive hypertension, goal systolic 160-180 mmHg she is on cefepime, Zyvox, Levaquin and micafungin for VAP (with MRSA) and UTI Plan Serum Na has increased to 148. No need for Tolvaptan. Permissive hypernatremia per Manager Program Management and neurosurgery. (Mat Martines MD) Rosie VicenteP Dec 31, 2016 11:16 Mat Martines MD Jan 01, 2017 09:11
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
[2016-12-31] MEDS: MORPHINE SULFATE 4 MG/ML INJ IV PUSH PRN (15:56)
[2016-12-31] MEDS: PANTOPRAZOLE SODIUM 40 MG VIAL IV SCH (16:03)
[2016-12-31] MEDS: MAGNESIUM HYDROXIDE SUSP 30 ML CUP PO SCH (20:01)
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
[2016-12-31] MEDS ORDERED: PHARMACY ORDERED LAB XX ONE (21:45)
[2017-01-01] VITALS (16 sets, daily range): BP systolic 161–182; BP diastolic 94–108; PULSE 69–122; RESP 13–21; TEMP 98.9–100.3; O2SAT 98–100
[2017-01-01] MEDS: levETIRAcetam INJ 500 MG in SODIUM CHLORIDE 0.9% INJ 100 ML IV SCH ×2 (03:33→15:51)
[2017-01-01] MEDS: NOREPINEPHRINE INJ 4 MG in SODIUM CHLOR 0.9% 250 ML INJ 250 ML IV PRN (03:47)
[2017-01-01] MEDS: VANCOMYCIN 1,000 MG/NS 250 ML IV SCH ×8 (04:08→23:17)
[2017-01-01] MEDS: IBUPROFEN SUSP 100 MG/5 ML UDC PO PRN ×3 (04:08→18:22)
[2017-01-01 04:29] LABS: HEMATOCRIT 30.4 % (35.0-46.0); MEAN CELL VOLUME 87.8 FL (80.0-100.0); MEAN CORPUSCULAR HEMOGLOBIN 29.1 PG (27.0-34.0); MEAN CORPUSCULAR HGB CONC 33.1 % (32.0-36.0); PLATELET COUNT 471 TH/MM3 (150-450); RED BLOOD COUNT 3.46 MIL/MM3 (4.00-5.30); RED CELL DISTRIBUTION WIDTH 15.1 % (11.6-17.2); REVIEW FLAG FINAL; WHITE BLOOD COUNT 14.1 TH/MM3 (4.0-11.0)
[2017-01-01 05:06] LABS: BLOOD GAS BASE EXCESS 1.4 mmol/L (-2-2); BLOOD GAS CARBOXYHEMOGLOBIN 1.3 % (0-4); BLOOD GAS HCO3 24 mmol/L (22-26); BLOOD GAS METHEMOGLOBIN 0.7 % (0-2); BLOOD GAS O2 HGB SATURATION 97 % (90-100); BLOOD GAS OXYGEN CONTENT 14.4 Vol % (12.0-20.0); BLOOD GAS PCO2 32 mmHg (38-42); BLOOD GAS PO2 152 mmHg (61-120); BLOOD GAS TOTAL HGB 10.3 G/DL (12.0-16.0); CRITICAL VALUE NO; DRAW SITE ART LINE; FIO2 30 %; NUMBER OF ARTERIAL PUNCTURES 0; OXYGEN DEVICE VENTILATOR; STAT NO; TEMP CORR TO 98.6; ULNAR PULSE PRESENT; VENT SETTINGS CPAP PEEP5 PS10
[2017-01-01] MEDS: PROPRANOLOL HCL 10 MG TAB PO SCH ×3 (05:12→21:47)
[2017-01-01] MEDS: CHLORHEXIDINE 0.12% (ORAL KIT) 15 ML CUP MT SCH ×2 (07:53→21:42)
[2017-01-01] MEDS: LACTULOSE SYRUP 20 GM/30 ML CUP PO SCH (08:13)
[2017-01-01] MEDS: ARTIFICIAL TEARS OPTH OINT 3.5 APPLIC/3.5 GM TUBO EACH EYE SCH ×2 (08:13→21:48)
[2017-01-01] MEDS: SODIUM CHLORIDE 0.9% FLUSH 5 ML FLUSH IVF SCH ×2 (08:14→21:48)
[2017-01-01] MEDS: DOCUSATE SODIUM 50 MG/SENNA 8.6 MG TAB PO SCH ×2 (08:14→21:47)
[2017-01-01] MEDS: FUROSEMIDE 20 MG/2 ML VIAL IV PUSH SCH ×2 (08:14→18:08)
[2017-01-01] MEDS: BISACODYL 10 MG SUPP RECTAL SCH (08:14)
[2017-01-01] MEDS: BROMOCRIPTINE MESYLATE 2.5 MG TAB PO SCH ×2 (08:14→21:47)
[2017-01-01 10:11] LABS: BICARBONATE 25.1 MEQ/L (21.0-32.0); POTASSIUM 3.5 MEQ/L (3.5-5.1)
[2017-01-01] MEDS ORDERED: IOHEXOL 350 MG/ML 10 ML VIAL (for RAD DIAG) IV ONE (10:31)
[2017-01-01] MEDS: LEVOFLOXACIN 750 MG PREMIX INJ 150 ML IV SCH (11:04)
--- NOTE | 2017-01-01 12:34 | HHI.PR ---
Neuropsych Emotional Emotional: UnabletoAssess: Emotional, Anxious/Fearful, Depressed/Sad, Hostile/ Resentful, Irritable/Angry/Frustrate, Labile, Constricted/Blunted Behavior Behavior: Unable to Asses: Behavior, Coping/Acceptance, Cooperative w/ Treatment, Motivation, Frustration Tolerance/[place], Impulsive/Agitated, Suicidal/ Homicidal Risk Cognitive Cognitive: Unable to Asses: Cognitive, Attention/Concentration, Confused/ Orientation, Insight/Awareness, Judgement/Problem-Solving, Memory Psychosocial Psychosocial: Intact: Psychosocial, Family/Other Adjustment, Realistic Expectation, Unable to Asses: Self-Esteem/Confidence Progress Notes/Response to Tx Contents of Sessions: Level of Consciousness Time with Patient: 30 minutes Premorbid psychological status Premorbid Cognitive, Emotional and Behavioral Status: Stable. 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 The patient has no prior psychiatric difficulties, as described above. Substance abuse history is unremarkable. She is , and [facility]. Behavioral Reactions of Patient and Family/Support System: Tenuous. The patients family is experiencing ongoing issues of adjustment given the nature of the injury, and this aspect of recovery will require ongoing monitoring. Emotional/Behavioral Status of Patient and Family/Support System: Tenuous. Pertinent issues, if appropriate to this patients clinical care, are described in detail above. Maximizing acute care outcome This patient is very early into her recovery from her sustained traumatic brain injury, and presently medical recovery takes precedence over neurobehavioral recovery. As she improves, it is recommended that the patient be monitored for emergent behavioral impulsivity. This patients neuropathological challenges may limit their rehabilitation potential going forward, and these challenges will require specialized therapeutic skills to maximize outcome. Additionally, the patients family is experiencing ongoing issues of adjustment given the traumatic nature of the injury, and they will need ongoing psychological assistance, which I will provide. Anticipated Problems Presently, the most pressing concern is her medical recovery. As she progresses , ongoing areas of concern will likely include behavioral impulsivity, lack of insight and judgment, which is expected to improve with time and treatment. Presently, the patient in coma, unresponsive and sedated. Treatment Plan This clinician will continue to follow with you throughout the course of this patients rehabilitation treatment, and I will be available to meet with the patients family/support system to facilitate their understanding and the ongoing care of their family member. The goals of neuropsychological intervention shall be both educational and supportive to the family/support system as is deemed clinically appropriate. [facility] Level: II:General response-total assist Impression This patient suffered a severe traumatic brain injury, with the likely probability of persistent neurocognitive impairment, depending on multiple medical factors. Diagnosis: (1) Major neurocognitive disorder as late effect of traumatic brain injury without behavioral disturbance Status: Acute Progress Note Narrative Ongoing follow-up of patient, both within the context of trauma rounds and bedside. This patient is improving, with a noted GCS of 8, improving neurological status. I have asked for a consultation with Dr. West concerning this patient's minimally conscious state, and when it may be appropriate to pharmacologically facilitate this state. I will continue to follow. Elver Cook PhD Jan 01, 2017 12:34 pm
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
[2017-01-01] MEDS ORDERED: PHARMACY ORDERED LAB XX ONE ×2 (15:45→21:45)
[2017-01-01] MEDS: PANTOPRAZOLE SODIUM 40 MG VIAL IV SCH (15:50)
[2017-01-01 17:28] LABS: BICARBONATE 25.3 MEQ/L (21.0-32.0)
--- NOTE | 2017-01-01 17:28 | RADRPT ---
EXAM DATE/TIME: 01/01/2017 10:25 [facility] COMPARISON: CTA BRAIN W 3D RECON, December 30, 2016, 10:03. INDICATIONS : Follow up vasospasm. IV CONTRAST: 50 cc Omnipaque 350 (iohexol) IV RADIATION DOSE: 24.76 CTDIvol (mGy) MEDICAL HISTORY : Unable to obtain. SURGICAL HISTORY : Craniotomy. ENCOUNTER: Subsequent ACUITY: 3 weeks PAIN SCALE: Non-responsive LOCATION: cranial TECHNIQUE: Volumetric scanning was performed using a multi-row detector CT scanner. The data was post processed with a variety of visualization algorithms including full volume maximum intensity projection, multi -planar sliding thin slab reformation, curved planar reformation, and surface rendering techniques. Using automated exposure control and adjustment of the mA and/or kV according to patient size, radiat ion dose was kept as low as reasonably achievable to obtain optimal diagnostic quality images. FINDINGS: There is mild vasospasm involving the distal left middle cerebral artery beyond the trifurcation with out evidence of high grade stenosis. There is also similar mild appearing vasospasm on the right side . The antrum arteries are patent bilaterally with mild hypoplasia on the right side. There is a patent posterior communicating artery on the left. There is minimal vasospasm involving th e P1 and P2 segments bilaterally. When compared to the prior examination there is decreasing edema in the occipital lobes bilaterally. CONCLUSION: 1. Mild vasospasm involving the distal menstrual arteries bilaterally. 2. Mild vasospasm involving the P1 and P2 segments bilaterally. 3. Decreasing edema involving the occipital lobes bilaterally Wander Brooke MD on January 01, 2017 at 17:08 Board Certified Radiologist. This report was verified electronically.
[2017-01-01 17:35] LABS: POTASSIUM 2.9 MEQ/L (3.5-5.1)
[2017-01-01] MEDS: POTASSIUM CHLOR 40 MEQ PREMIX 100 ML IV PRN (18:23)
[2017-01-01] MEDS: POTASSIUM CL 40 MEQ/30 ML LIQ UDC PO/TUBE PRN (18:23)
[2017-01-01] MEDS: 3% SALINE INJ 500 ML IV SCH (19:33)
[2017-01-01] MEDS: MAGNESIUM HYDROXIDE SUSP 30 ML CUP PO SCH (21:47)
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
[2017-01-02] VITALS (14 sets, daily range): BP systolic 147–178; BP diastolic 94–107; PULSE 85–139; RESP 15–26; TEMP 100.2–100.9; O2SAT 99–100
[2017-01-02] MEDS: NOREPINEPHRINE INJ 4 MG in SODIUM CHLOR 0.9% 250 ML INJ 250 ML IV PRN ×3 (00:38→16:36)
[2017-01-02] MEDS: levETIRAcetam INJ 500 MG in SODIUM CHLORIDE 0.9% INJ 100 ML IV SCH ×2 (03:44→16:35)
[2017-01-02] MEDS: VANCOMYCIN 1,000 MG/NS 250 ML IV SCH ×4 (03:45→09:30)
[2017-01-02 04:12] LABS: HEMATOCRIT 30.7 % (35.0-46.0); MEAN CELL VOLUME 85.5 FL (80.0-100.0); MEAN CORPUSCULAR HEMOGLOBIN 29.2 PG (27.0-34.0); MEAN CORPUSCULAR HGB CONC 34.1 % (32.0-36.0); PLATELET COUNT 557 TH/MM3 (150-450); RED BLOOD COUNT 3.59 MIL/MM3 (4.00-5.30); RED CELL DISTRIBUTION WIDTH 14.9 % (11.6-17.2); REVIEW FLAG FINAL; WHITE BLOOD COUNT 15.7 TH/MM3 (4.0-11.0)
[2017-01-02 04:46] LABS: BICARBONATE 25.3 MEQ/L (21.0-32.0); POTASSIUM 3.8 MEQ/L (3.5-5.1)
[2017-01-02] MEDS: 3% SALINE INJ 500 ML IV SCH ×2 (04:54→17:46)
[2017-01-02] MEDS: PROPRANOLOL HCL 10 MG TAB PO SCH ×3 (04:54→21:21)
[2017-01-02 05:01] LABS: BLOOD GAS BASE EXCESS 0.8 mmol/L (-2-2); BLOOD GAS CARBOXYHEMOGLOBIN 1.2 % (0-4); BLOOD GAS HCO3 24 mmol/L (22-26); BLOOD GAS METHEMOGLOBIN 0.9 % (0-2); BLOOD GAS O2 HGB SATURATION 97 % (90-100); BLOOD GAS OXYGEN CONTENT 19.5 Vol % (12.0-20.0); BLOOD GAS PCO2 31 mmHg (38-42); BLOOD GAS PO2 126 mmHg (61-120); BLOOD GAS TOTAL HGB 14.2 G/DL (12.0-16.0); CRITICAL VALUE NO; TEMP CORR TO 98.6
[2017-01-02 05:02] LABS: DRAW SITE ART LINE; FIO2 35 %; LITER FLOW 6 L/M; OXYGEN DEVICE TRACH COLLAR; STAT NO
[2017-01-02] MEDS: SODIUM CHLORIDE 0.9% FLUSH 5 ML FLUSH IVF SCH ×2 (07:47→20:40)
[2017-01-02] MEDS: BISACODYL 10 MG SUPP RECTAL SCH (09:00)
[2017-01-02] MEDS: ARTIFICIAL TEARS OPTH OINT 3.5 APPLIC/3.5 GM TUBO EACH EYE SCH ×2 (09:00→20:40)
[2017-01-02] MEDS: LEVOFLOXACIN 750 MG PREMIX INJ 150 ML IV SCH (09:29)
[2017-01-02] MEDS: BROMOCRIPTINE MESYLATE 2.5 MG TAB PO SCH ×2 (09:30→20:39)
[2017-01-02] MEDS: DOCUSATE SODIUM 50 MG/SENNA 8.6 MG TAB PO SCH ×2 (09:30→20:39)
[2017-01-02] MEDS: FUROSEMIDE 20 MG/2 ML VIAL IV PUSH SCH ×2 (09:31→16:35)
[2017-01-02] MEDS: CHLORHEXIDINE 0.12% (ORAL KIT) 15 ML CUP MT SCH ×2 (09:31→19:59)
[2017-01-02] MEDS: LACTULOSE SYRUP 20 GM/30 ML CUP PO SCH (09:31)
[2017-01-02] MEDS: IBUPROFEN SUSP 100 MG/5 ML UDC PO PRN ×2 (11:32→20:38)
--- NOTE | 2017-01-02 11:38 | HHI.PR ---
Neuropsych Emotional Emotional: UnabletoAssess: Emotional, Anxious/Fearful, Depressed/Sad, Hostile/ Resentful, Irritable/Angry/Frustrate, Labile, Constricted/Blunted Behavior Behavior: Unable to Asses: Behavior, Coping/Acceptance, Cooperative w/ Treatment, Motivation, Frustration Tolerance/Campbell, Impulsive/Agitated, Suicidal/ Homicidal Risk Cognitive Cognitive: Unable to Asses: Cognitive, Attention/Concentration, Confused/ Orientation, Insight/Awareness, Judgement/Problem-Solving, Memory Psychosocial Psychosocial: Intact: Psychosocial, Family/Other Adjustment, Realistic Expectation, Unable to Asses: Self-Esteem/Confidence Progress Notes/Response to Tx Contents of Sessions: Level of Consciousness Time with Patient: 15 minutes Premorbid psychological status Premorbid Cognitive, Emotional and Behavioral Status: Stable. 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 The patient has no prior psychiatric difficulties, as described above. Substance abuse history is unremarkable. She is , and her is a [employer]. Behavioral Reactions of Patient and Family/Support System: Tenuous. The patients family is experiencing ongoing issues of adjustment given the nature of the injury, and this aspect of recovery will require ongoing monitoring. Emotional/Behavioral Status of Patient and Family/Support System: Tenuous. Pertinent issues, if appropriate to this patients clinical care, are described in detail above. Maximizing acute care outcome This patient is very early into her recovery from her sustained traumatic brain injury, and presently medical recovery takes precedence over neurobehavioral recovery. As she improves, it is recommended that the patient be monitored for emergent behavioral impulsivity. This patients neuropathological challenges may limit their rehabilitation potential going forward, and these challenges will require specialized therapeutic skills to maximize outcome. Additionally, the patients family is experiencing ongoing issues of adjustment given the traumatic nature of the injury, and they will need ongoing psychological assistance, which I will provide. Anticipated Problems Presently, the most pressing concern is her medical recovery. As she progresses , ongoing areas of concern will likely include behavioral impulsivity, lack of insight and judgment, which is expected to improve with time and treatment. Presently, the patient in coma, unresponsive and sedated. Treatment Plan This clinician will continue to follow with you throughout the course of this patients rehabilitation treatment, and I will be available to meet with the patients family/support system to facilitate their understanding and the ongoing care of their family member. The goals of neuropsychological intervention shall be both educational and supportive to the family/support system as is deemed clinically appropriate. [facility] Level: II:General response-total assist Impression This patient suffered a severe traumatic brain injury, with the likely probability of persistent neurocognitive impairment, depending on multiple medical factors. Diagnosis: (1) Major neurocognitive disorder as late effect of traumatic brain injury without behavioral disturbance Status: Acute Progress Note Narrative Ongoing follow-up of patient who was seen both during daily trauma rounding and bedside to discuss with patient's . Patient was awake, eyes open, not fully tracking but following some commands. I provided ongoing support to the patient's , and answered questions to the best of my ability. I plan to follow up with Dr. West concerning issues about minimal consciousness treatment. Elver Cook PhD Jan 02, 2017 11:38
--- NOTE | 2017-01-02 12:06 | HHI.NPPN ---
Subjective Interval History She is sitting up in chair. Sodium has remained around 140 despite interventions. (Rosie Vicente) Review of Systems General General Remarks unable to evaluate due to mental status (Rosie Vicente) Objective Data Data 01/01/17 01/02/17 19:00 07:00 Intake Total 2007 ml 4210 ml Output Total 3260 ml 5245 ml Balance -1253 ml -1035 ml Intake IV Total 1591 ml 3571 ml Tube Feeding 416 ml 639 ml Output Urine Total 3200 ml 5245 ml Drainage Total 60 ml 0 ml # Bowel Movements 0 Vital Signs Date Time Temp Pulse Resp B/P Pulse Ox O2 Delivery O2 Flow Rate FiO2 01/02/17 10:00 125 01/02/17 08:58 99 Trach Collar 35 01/02/17 08:00 100.9 111 21 178/107 100 01/02/17 08:00 35 01/02/17 08:00 111 01/02/17 06:00 112 01/02/17 04:00 35 01/02/17 04:00 104 01/02/17 04:00 100.2 104 15 160/94 100 01/02/17 02:00 108 01/02/17 00:00 85 01/02/17 00:00 35 01/02/17 00:00 100.2 92 18 177/104 100 01/01/17 22:00 120 01/01/17 21:00 100 01/01/17 20:11 100 Trach Collar 6.00 35 01/01/17 20:00 108 01/01/17 20:00 35 01/01/17 20:00 100.3 114 21 166/100 100 01/01/17 18:00 117 01/01/17 16:00 99.3 120 21 176/102 100 01/01/17 16:00 35 01/01/17 14:00 111 01/01/17 12:00 93 01/01/17 12:00 99.9 93 14 182/102 100 01/01/17 12:00 35 (Rosie Vicente) -: 01/02/17 0358 01/02/17 0358 Imaging Last 72 hours Impressions Head CTA 01/01/17 0600 Signed Impressions: Service Date/Time: December 10:25 - CONCLUSION: 1. Mild vasospasm involving the distal menstrual arteries bilaterally. 2. Mild vasospasm involving the P1 and P2 segments bilaterally. 3. Decreasing edema involving the occipital lobes bilaterally Wander Brooke MD Chest X-Ray 12/31/16 0500 Signed Impressions: Service Date/Time: Saturday, December 31, 2016 05:23 - CONCLUSION: Clear lungs. Scotty Mederos MD Tubes & Lines: [place] Tubes & Lines Comment a line left radial, ventriculostomy Drip Comment Levophed (Cinthia,Rosie B. AERODYNAMICS PROFESSOR) Physical Exam General Appearance: Well Developed, Well Nourished Appearance Remarks awake, some minor facial twitching (Cinthia,Rosie B. AERODYNAMICS PROFESSOR) Eyes Eye Exam: Pupils Equal (Cinthia,Rosie B. AERODYNAMICS PROFESSOR) Throat Throat Exam: Oral Mucosa Kirby & Moist Throat Remarks trach (Cinthia,Rosie B. AERODYNAMICS PROFESSOR) Neck Neck Exam: Neck Supple (Cinthia,Rosie B. AERODYNAMICS PROFESSOR) Pulmonary Resp Exam: Clear Bilaterally, Breath Sounds Equal (Cinthia,Rosie B. AERODYNAMICS PROFESSOR) Cardiology CV Exam: Regular, Normal Sinus Rhythm, Tachycardia (Cinthia,Rosie B. AERODYNAMICS PROFESSOR) Gastrointestinal/Abdomen GI Exam: Soft, Non-Tender, Bowel Sounds Present GI Remarks PEG (Cinthia,Rosie B. AERODYNAMICS PROFESSOR) Genitourinary Exam: Clear Urine (Cinthia,Rosie B. AERODYNAMICS PROFESSOR) Musculoskeletal MS Exam: Joints Intact, Unable to Ambulate (Cinthia,Rosie B. AERODYNAMICS PROFESSOR) Integumentary Skin Exam: Clear, Warm, Dry, Intact (Cinthia,Rosie B. AERODYNAMICS PROFESSOR) Extremeties Extremities Exam: No Edema, Pedal Pulses Palpable (Cinthia,Rosie B. AERODYNAMICS PROFESSOR) Neurologic Neuro Exam: Awake, Moving All Extremities Neuro Remarks scalp incision clean/dry (Cinthia,Rosie B. AERODYNAMICS PROFESSOR) Assessment/Plan Discussed Condition With: Spouse Discussed Condition Comment nurse Assessment Summary: Hypertension Problem List: (1) Subdural hematoma Plan: neurosurgery is following, sodium initially elevated with 3% therapy but has been around 140 past several checks goal of permissive hypernatremia for cerebral edema, maintain sodium level 145- 150; discussed with the nurse and there is some discussion about tapering off 3 % saline per the neurosurgeon and removing ventriculostomy she may require stent placement 3% saline rate is running at 60 ml/hr currently, continue Lasix BID IV in the meantime Tolvaptan can be considered if needed, low dose, with no fluid restrictions or IVF requirements she is on vasopressin for permissive hypertension, goal systolic 160-180 mmHg she has normal renal function she is on cefepime, Zyvox, Levaquin and micafungin for VAP (with MRSA) and UTI (Rosie Vicente) Plan patient was seen and examined. Agree with above assessment and plan. (Mat Martines MD) Rosie Vicente Jan 02, 2017 12:06 Mat Martines MD Jan 02, 2017 15:55
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
[2017-01-02 16:23] LABS: BICARBONATE 27.2 MEQ/L (21.0-32.0); POTASSIUM 3.7 MEQ/L (3.5-5.1)
[2017-01-02] MEDS: PANTOPRAZOLE SODIUM 40 MG VIAL IV SCH (16:35)
[2017-01-02] MEDS: MAGNESIUM HYDROXIDE SUSP 30 ML CUP PO SCH (20:38)
[2017-01-03] VITALS (15 sets, daily range): BP systolic 129–172; BP diastolic 76–96; PULSE 82–137; RESP 10–19; TEMP 97.9–100.7; O2SAT 95–100
[2017-01-03] MEDS: levETIRAcetam INJ 500 MG in SODIUM CHLORIDE 0.9% INJ 100 ML IV SCH ×2 (03:44→14:17)
[2017-01-03] MEDS: 3% SALINE INJ 500 ML IV SCH ×2 (03:45→17:56)
[2017-01-03 04:09] LABS: RED BLOOD COUNT 3.47 MIL/MM3 (4.00-5.30)
[2017-01-03 04:10] LABS: AUTOMATED NEUTROPHIL # 16.6 TH/MM3 (1.8-7.7); BASOPHIL # 0.2 TH/MM3 (0-0.2); BASOPHIL % 0.9 % (0.0-2.0); EOSINOPHIL # 0.4 TH/MM3 (0-0.4); EOSINOPHIL % 2.1 % (0.0-4.0); HEMATOCRIT 30.4 % (35.0-46.0); HEMO FLAGS DIFF FINAL; LYMPH % 7.9 % (9.0-44.0); LYMPHOCYTE # 1.6 TH/MM3 (1.0-4.8); MEAN CELL VOLUME 87.6 FL (80.0-100.0); MEAN CORPUSCULAR HEMOGLOBIN 30.3 PG (27.0-34.0); MEAN CORPUSCULAR HGB CONC 34.6 % (32.0-36.0); MONO % 5.7 % (0.0-8.0); NEUT % 83.4 % (16.0-70.0); PLATELET COUNT 473 TH/MM3 (150-450); RED CELL DISTRIBUTION WIDTH 15.1 % (11.6-17.2)
[2017-01-03 04:17] LABS: ALT (GPT) 85 U/L (10-53); ANION GAP 9 MEQ/L (5-15); AST (GOT) 71 U/L (15-37); BICARBONATE 26.2 MEQ/L (21.0-32.0); BLOOD UREA NITROGEN 12 MG/DL (7-18); CHLORIDE 105 MEQ/L (98-107); GLOMERULAR FILTRATION RATE 223 ML/MIN (>89); POTASSIUM 3.8 MEQ/L (3.5-5.1); SODIUM (NA) 140 MEQ/L (136-145)
[2017-01-03 04:19] LABS: ALKALINE PHOSPHATASE 117 U/L (45-117); TOTAL BILIRUBIN ADULT 0.4 MG/DL (0.2-1.0)
[2017-01-03] MEDS: PROPRANOLOL HCL 10 MG TAB PO SCH ×3 (05:15→22:29)
[2017-01-03] MEDS: IBUPROFEN SUSP 100 MG/5 ML UDC PO PRN ×3 (05:15→23:38)
[2017-01-03] MEDS: NOREPINEPHRINE INJ 4 MG in SODIUM CHLOR 0.9% 250 ML INJ 250 ML IV PRN (06:11)
[2017-01-03] MEDS: LACTULOSE SYRUP 20 GM/30 ML CUP PO SCH (07:46)
[2017-01-03] MEDS: DOCUSATE SODIUM 50 MG/SENNA 8.6 MG TAB PO SCH ×2 (07:46→20:27)
[2017-01-03] MEDS: SODIUM CHLORIDE 0.9% FLUSH 5 ML FLUSH IVF SCH ×2 (07:46→20:27)
[2017-01-03] MEDS: BISACODYL 10 MG SUPP RECTAL SCH (07:46)
[2017-01-03] MEDS: FUROSEMIDE 20 MG/2 ML VIAL IV PUSH SCH ×2 (08:34→17:56)
[2017-01-03] MEDS: BROMOCRIPTINE MESYLATE 2.5 MG TAB PO SCH ×2 (08:34→20:27)
[2017-01-03] MEDS: CHLORHEXIDINE 0.12% (ORAL KIT) 15 ML CUP MT SCH ×2 (08:34→19:47)
[2017-01-03] MEDS: ARTIFICIAL TEARS OPTH OINT 3.5 APPLIC/3.5 GM TUBO EACH EYE SCH ×2 (08:35→20:27)
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
[2017-01-03] MEDS ORDERED: AMANTADINE HCL SOLN 100 MG/10 ML UDC PO ONE (14:00)
[2017-01-03] MEDS: PANTOPRAZOLE SODIUM 40 MG VIAL IV SCH (14:17)
[2017-01-03] MEDS: MAGNESIUM HYDROXIDE SUSP 30 ML CUP PO SCH (20:27)
[2017-01-04] VITALS (14 sets, daily range): BP systolic 129–149; BP diastolic 79–93; PULSE 95–132; RESP 12–20; TEMP 99.1–100.9; O2SAT 95–100
[2017-01-04] MEDS: levETIRAcetam INJ 500 MG in SODIUM CHLORIDE 0.9% INJ 100 ML IV SCH (03:33)
[2017-01-04 04:12] LABS: BASOPHIL # 0.1 TH/MM3 (0-0.2); BASOPHIL % 0.8 % (0.0-2.0); EOSINOPHIL # 0.4 TH/MM3 (0-0.4); EOSINOPHIL % 2.9 % (0.0-4.0); HEMATOCRIT 27.6 % (35.0-46.0); HEMO FLAGS DIFF FINAL; LYMPH % 13.7 % (9.0-44.0); LYMPHOCYTE # 1.6 TH/MM3 (1.0-4.8); MEAN CELL VOLUME 86.9 FL (80.0-100.0); MEAN CORPUSCULAR HEMOGLOBIN 29.9 PG (27.0-34.0); MEAN CORPUSCULAR HGB CONC 34.4 % (32.0-36.0); MONO % 7.6 % (0.0-8.0); PLATELET COUNT 356 TH/MM3 (150-450); RED BLOOD COUNT 3.18 MIL/MM3 (4.00-5.30)
[2017-01-04 04:56] LABS: BICARBONATE 29.9 MEQ/L (21.0-32.0); POTASSIUM 3.6 MEQ/L (3.5-5.1)
[2017-01-04] MEDS: PROPRANOLOL HCL 10 MG TAB PO SCH ×2 (05:19→12:44)
[2017-01-04] MEDS: AMANTADINE HCL SOLN 100 MG/10 ML UDC PO SCH ×2 (06:37→12:44)
[2017-01-04] MEDS: SODIUM CHLORIDE 0.9% FLUSH 5 ML FLUSH IVF SCH ×2 (07:13→20:17)
[2017-01-04] MEDS: CHLORHEXIDINE 0.12% (ORAL KIT) 15 ML CUP MT SCH ×2 (08:12→20:00)
[2017-01-04] MEDS: FUROSEMIDE 20 MG/2 ML VIAL IV PUSH SCH ×2 (08:12→16:40)
[2017-01-04] MEDS: ARTIFICIAL TEARS OPTH OINT 3.5 APPLIC/3.5 GM TUBO EACH EYE SCH ×2 (08:12→20:17)
[2017-01-04] MEDS: BROMOCRIPTINE MESYLATE 2.5 MG TAB PO SCH ×2 (08:12→20:38)
[2017-01-04] MEDS: BISACODYL 10 MG SUPP RECTAL SCH (08:13)
[2017-01-04] MEDS: LACTULOSE SYRUP 20 GM/30 ML CUP PO SCH (08:13)
[2017-01-04] MEDS: DOCUSATE SODIUM 50 MG/SENNA 8.6 MG TAB PO SCH ×2 (08:13→20:15)
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
[2017-01-04] MEDS: IBUPROFEN SUSP 100 MG/5 ML UDC PO PRN (16:39)
[2017-01-04] MEDS: 3% SALINE INJ 500 ML IV SCH (16:40)
[2017-01-04] MEDS: PANTOPRAZOLE SODIUM 40 MG VIAL IV SCH (16:40)
[2017-01-04] MEDS: MAGNESIUM HYDROXIDE SUSP 30 ML CUP PO SCH (20:15)
[2017-01-05] VITALS (14 sets, daily range): BP systolic 118–133; BP diastolic 68–178; PULSE 108–138; RESP 12–19; TEMP 99–100.4; O2SAT 94–98
[2017-01-05] MEDS: PROPRANOLOL HCL 10 MG TAB PO SCH ×4 (01:22→21:15)
[2017-01-05] MEDS: 3% SALINE INJ 500 ML IV SCH ×2 (04:52→21:15)
[2017-01-05 06:28] LABS: HEMATOCRIT 27.1 % (35.0-46.0); MEAN CELL VOLUME 88.1 FL (80.0-100.0); MEAN CORPUSCULAR HEMOGLOBIN 30.2 PG (27.0-34.0); MEAN CORPUSCULAR HGB CONC 34.3 % (32.0-36.0); PLATELET COUNT 347 TH/MM3 (150-450); RED BLOOD COUNT 3.07 MIL/MM3 (4.00-5.30); RED CELL DISTRIBUTION WIDTH 15.8 % (11.6-17.2); REVIEW FLAG FINAL; WHITE BLOOD COUNT 11.8 TH/MM3 (4.0-11.0)
[2017-01-05 06:55] LABS: BICARBONATE 28.1 MEQ/L (21.0-32.0); POTASSIUM 3.6 MEQ/L (3.5-5.1)
[2017-01-05] MEDS: AMANTADINE HCL SOLN 100 MG/10 ML UDC PO SCH (06:56)
[2017-01-05] MEDS: CHLORHEXIDINE 0.12% (ORAL KIT) 15 ML CUP MT SCH ×2 (08:00→20:00)
[2017-01-05] MEDS: ARTIFICIAL TEARS OPTH OINT 3.5 APPLIC/3.5 GM TUBO EACH EYE SCH ×2 (09:00→21:00)
[2017-01-05] MEDS: LACTULOSE SYRUP 20 GM/30 ML CUP PO SCH (09:00)
[2017-01-05] MEDS: DOCUSATE SODIUM 50 MG/SENNA 8.6 MG TAB PO SCH ×2 (09:00→21:15)
[2017-01-05] MEDS: BISACODYL 10 MG SUPP RECTAL SCH (09:00)
[2017-01-05] MEDS: SODIUM CHLORIDE 0.9% FLUSH 5 ML FLUSH IVF SCH ×2 (09:35→21:15)
[2017-01-05] MEDS: FUROSEMIDE 20 MG/2 ML VIAL IV PUSH SCH ×2 (09:36→17:24)
[2017-01-05] MEDS: BROMOCRIPTINE MESYLATE 2.5 MG TAB PO SCH ×2 (09:36→21:15)
[2017-01-05] MEDS: IBUPROFEN SUSP 100 MG/5 ML UDC PO PRN (09:36)
--- NOTE | 2017-01-05 09:37 | EKG ---
Date Performed: 01/04/2017 Time Performed: 09:49:44 PTAGE: 21 years EKG: Sinus tachycardia. Normal ECG except for rate NO PREVIOUS TRACING DOCTOR: Wander Lozada Interpretating Date/Time 01/05/2017 09:35:59
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
[2017-01-05] MEDS: HYOSCYAMINE 0.125 MG TAB PO PRN ×2 (13:21→21:15)
[2017-01-05] MEDS: oxyCODONE HCL ORAL CONC 20 MG/ML SYRINGE PO PRN (13:22)
[2017-01-05] MEDS: PANTOPRAZOLE SODIUM 40 MG VIAL IV SCH (17:24)
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
[2017-01-05] MEDS: MAGNESIUM HYDROXIDE SUSP 30 ML CUP PO SCH (21:15)
[2017-01-05] MEDS: PROPRANOLOL HCL 20 MG TAB PO SCH (21:26)
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
[2017-01-06] VITALS (14 sets, daily range): BP systolic 126–142; BP diastolic 59–90; PULSE 107–139; RESP 12–18; TEMP 98.2–99.1; O2SAT 95–99
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
[2017-01-06] MEDS: PROPRANOLOL HCL 20 MG TAB PO SCH ×3 (05:53→21:29)
[2017-01-06 06:06] LABS: AUTOMATED NEUTROPHIL # 9.1 TH/MM3 (1.8-7.7); BASOPHIL # 0.1 TH/MM3 (0-0.2); BASOPHIL % 0.9 % (0.0-2.0); EOSINOPHIL # 0.3 TH/MM3 (0-0.4); EOSINOPHIL % 2.7 % (0.0-4.0); HEMATOCRIT 26.8 % (35.0-46.0); HEMO FLAGS DIFF FINAL; LYMPH % 9.8 % (9.0-44.0); LYMPHOCYTE # 1.2 TH/MM3 (1.0-4.8); MEAN CELL VOLUME 91.3 FL (80.0-100.0); MEAN CORPUSCULAR HEMOGLOBIN 30.2 PG (27.0-34.0); MEAN CORPUSCULAR HGB CONC 33.1 % (32.0-36.0); MONO % 9.1 % (0.0-8.0); NEUT % 77.5 % (16.0-70.0); PLATELET COUNT 298 TH/MM3 (150-450); RED BLOOD COUNT 2.94 MIL/MM3 (4.00-5.30); RED CELL DISTRIBUTION WIDTH 15.6 % (11.6-17.2); WHITE BLOOD COUNT 11.8 TH/MM3 (4.0-11.0)
[2017-01-06 06:17] LABS: ALT (GPT) 73 U/L (10-53); ANION GAP 8 MEQ/L (5-15); AST (GOT) 67 U/L (15-37); BICARBONATE 29.4 MEQ/L (21.0-32.0); BLOOD UREA NITROGEN 25 MG/DL (7-18); CHLORIDE 114 MEQ/L (98-107); GLOMERULAR FILTRATION RATE 182 ML/MIN (>89); MAGNESIUM 2.6 MG/DL (1.5-2.5); POTASSIUM 3.8 MEQ/L (3.5-5.1); SODIUM (NA) 151 MEQ/L (136-145)
[2017-01-06 06:19] LABS: ALKALINE PHOSPHATASE 128 U/L (45-117); TOTAL BILIRUBIN ADULT 0.4 MG/DL (0.2-1.0)
[2017-01-06] MEDS: LACTULOSE SYRUP 20 GM/30 ML CUP PO SCH (09:00)
[2017-01-06] MEDS: ARTIFICIAL TEARS OPTH OINT 3.5 APPLIC/3.5 GM TUBO EACH EYE SCH ×2 (09:00→21:00)
[2017-01-06] MEDS: BROMOCRIPTINE MESYLATE 2.5 MG TAB PO SCH ×2 (09:11→21:28)
[2017-01-06] MEDS: DOCUSATE SODIUM 50 MG/SENNA 8.6 MG TAB PO SCH ×2 (09:11→21:28)
[2017-01-06] MEDS: FUROSEMIDE 20 MG/2 ML VIAL IV PUSH SCH ×2 (09:11→18:53)
[2017-01-06] MEDS: BISACODYL 10 MG SUPP RECTAL SCH (09:11)
[2017-01-06] MEDS: SODIUM CHLORIDE 0.9% FLUSH 5 ML FLUSH IVF SCH ×2 (09:22→21:28)
[2017-01-06] MEDS: CHLORHEXIDINE 0.12% (ORAL KIT) 15 ML CUP MT SCH ×2 (09:23→20:00)
[2017-01-06] MEDS: 3% SALINE INJ 500 ML IV SCH (10:11)
[2017-01-06] MEDS: oxyCODONE HCL ORAL CONC 20 MG/ML SYRINGE PO PRN ×2 (11:42→20:18)
[2017-01-06] MEDS: PANTOPRAZOLE SODIUM 40 MG VIAL IV SCH (14:46)
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
[2017-01-06] MEDS: MAGNESIUM HYDROXIDE SUSP 30 ML CUP PO SCH (21:28)
[2017-01-07] VITALS (14 sets, daily range): BP systolic 105–130; BP diastolic 56–89; PULSE 96–122; RESP 10–17; TEMP 98.4–100; O2SAT 94–99
[2017-01-07] MEDS: PROPRANOLOL HCL 20 MG TAB PO SCH ×4 (05:10→22:00)
[2017-01-07] MEDS: IBUPROFEN SUSP 100 MG/5 ML UDC PO PRN (05:10)
[2017-01-07 06:16] LABS: AUTOMATED NEUTROPHIL # 7.7 TH/MM3 (1.8-7.7); BASOPHIL # 0.1 TH/MM3 (0-0.2); BASOPHIL % 0.7 % (0.0-2.0); EOSINOPHIL # 0.2 TH/MM3 (0-0.4); EOSINOPHIL % 1.8 % (0.0-4.0); HEMATOCRIT 26.5 % (35.0-46.0); HEMO FLAGS DIFF FINAL; LYMPH % 10.8 % (9.0-44.0); LYMPHOCYTE # 1.1 TH/MM3 (1.0-4.8); MEAN CORPUSCULAR HGB CONC 33.7 % (32.0-36.0); MONO % 10.1 % (0.0-8.0); NEUT % 76.6 % (16.0-70.0); PLATELET COUNT 330 TH/MM3 (150-450); RED BLOOD COUNT 2.88 MIL/MM3 (4.00-5.30); RED CELL DISTRIBUTION WIDTH 16.3 % (11.6-17.2)
[2017-01-07 06:47] LABS: ALKALINE PHOSPHATASE 124 U/L (45-117); ALT (GPT) 86 U/L (10-53); ANION GAP 7 MEQ/L (5-15); AST (GOT) 71 U/L (15-37); BICARBONATE 29.8 MEQ/L (21.0-32.0); BLOOD UREA NITROGEN 36 MG/DL (7-18); CHLORIDE 120 MEQ/L (98-107); GLOMERULAR FILTRATION RATE 117 ML/MIN (>89); MAGNESIUM 2.8 MG/DL (1.5-2.5); POTASSIUM 3.7 MEQ/L (3.5-5.1); TOTAL BILIRUBIN ADULT 0.4 MG/DL (0.2-1.0)
[2017-01-07 06:53] LABS: SODIUM (NA) 157 MEQ/L (136-145)
[2017-01-07] MEDS: SODIUM CHLORIDE 0.9% FLUSH 5 ML FLUSH IVF SCH ×2 (07:38→21:08)
[2017-01-07] MEDS: DOCUSATE SODIUM 50 MG/SENNA 8.6 MG TAB PO SCH ×2 (08:58→21:06)
[2017-01-07] MEDS: BROMOCRIPTINE MESYLATE 2.5 MG TAB PO SCH ×2 (08:58→21:08)
[2017-01-07] MEDS: ARTIFICIAL TEARS OPTH OINT 3.5 APPLIC/3.5 GM TUBO EACH EYE SCH ×2 (08:59→21:00)
[2017-01-07] MEDS: BISACODYL 10 MG SUPP RECTAL SCH (08:59)
[2017-01-07] MEDS: CHLORHEXIDINE 0.12% (ORAL KIT) 15 ML CUP MT SCH ×2 (08:59→20:00)
[2017-01-07] MEDS: LACTULOSE SYRUP 20 GM/30 ML CUP PO SCH (08:59)
[2017-01-07] MEDS: FUROSEMIDE 20 MG/2 ML VIAL IV PUSH SCH ×2 (08:59→16:30)
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
--- NOTE | 2017-01-07 12:40 | MG ---
cc: MUNIR RODRIGEZ M.D. Lab No: [id number] Date: 01/07/2017 Age: Sex: F Race: TECHNIQUE: A 17-channel EEG. DESCRIPTION: The background activity is abnormal. There is epileptiform activity which is mainly over the left hemisphere with sharp waves showing phase reversal in a continuous fashion for much of the early part of the tracing. It then becomes more intermittent later in the tracing. It does not appear to generalize. INTERPRETATION: Abnormal study with epileptiform activity of the left hemisphere at times in a continuous fashion. MD TABBY Howe/KATHRINE /12:32 PM /12:35 PM
[2017-01-07] MEDS ORDERED: CHLORHEXIDINE GLUCONATE 2 % 1 PACK (2 CLOTHS)(extra cloths) TOP PRN (14:30)
[2017-01-07] MEDS ORDERED: levETIRAcetam 500 MG/5 ML UDC TUBE SCH (16:00)
[2017-01-07] MEDS: PANTOPRAZOLE SODIUM 40 MG VIAL IV SCH (16:30)
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
[2017-01-07] MEDS: levETIRAcetam INJ 500 MG in SODIUM CHLORIDE 0.9% INJ 100 ML IV SCH (19:04)
[2017-01-07] MEDS: VALPROIC ACID SYRUP 250 MG/5 ML UDC PEG SCH (19:04)
[2017-01-07] MEDS ORDERED: levETIRAcetam INJ 500 MG in SODIUM CHLORIDE 0.9% INJ 100 ML IV SCH (21:00)
[2017-01-07] MEDS ORDERED: VALPROIC ACID SYRUP 250 MG/5 ML UDC PO SCH (21:00)
[2017-01-07] MEDS: MUPIROCIN 2% OINT 1 APPLIC/GM SYR NASAL SCH (21:05)
[2017-01-07] MEDS: MAGNESIUM HYDROXIDE SUSP 30 ML CUP PO SCH (21:06)
[2017-01-08] VITALS (13 sets, daily range): BP systolic 76–137; BP diastolic 37–86; PULSE 89–126; RESP 9–14; TEMP 97.7–99.2; O2SAT 97–100
[2017-01-08] MEDS: SODIUM CHLOR 0.9% 1000 ML INJ 1,000 ML IV SCH ×2 (01:30→14:00)
[2017-01-08] MEDS ORDERED: SODIUM CHLORID 0.9% 500 ML INJ 500 ML IV ONE (01:30)
[2017-01-08] MEDS: CHLORHEXIDINE GLUCONATE 2 % 1 PACK (2 CLOTHS)(taper/protocol) TOP SCH (04:00)
[2017-01-08] MEDS: PROPRANOLOL HCL 20 MG TAB PO SCH ×3 (04:14→22:00)
[2017-01-08] MEDS: LACTULOSE SYRUP 20 GM/30 ML CUP PO SCH (07:31)
[2017-01-08] MEDS: SODIUM CHLORIDE 0.9% FLUSH 5 ML FLUSH IVF SCH ×2 (07:31→19:37)
[2017-01-08] MEDS: BISACODYL 10 MG SUPP RECTAL SCH (07:32)
[2017-01-08] MEDS: CHLORHEXIDINE 0.12% (ORAL KIT) 15 ML CUP MT SCH ×2 (08:57→19:36)
[2017-01-08] MEDS: VALPROIC ACID SYRUP 250 MG/5 ML UDC PEG SCH ×2 (08:57→19:37)
[2017-01-08] MEDS: BROMOCRIPTINE MESYLATE 2.5 MG TAB PO SCH ×2 (08:58→19:37)
[2017-01-08] MEDS: FUROSEMIDE 20 MG/2 ML VIAL IV PUSH SCH (08:58)
[2017-01-08] MEDS: ARTIFICIAL TEARS OPTH OINT 3.5 APPLIC/3.5 GM TUBO EACH EYE SCH ×2 (08:58→19:36)
[2017-01-08] MEDS: MUPIROCIN 2% OINT 1 APPLIC/GM SYR NASAL SCH ×2 (08:58→19:37)
[2017-01-08] MEDS: levETIRAcetam INJ 500 MG in SODIUM CHLORIDE 0.9% INJ 100 ML IV SCH ×2 (08:58→19:36)
[2017-01-08] MEDS: DOCUSATE SODIUM 50 MG/SENNA 8.6 MG TAB PO SCH ×2 (08:58→19:37)
[2017-01-08 09:17] LABS: BICARBONATE 32.9 MEQ/L (21.0-32.0); POTASSIUM 3.8 MEQ/L (3.5-5.1)
--- NOTE | 2017-01-08 12:02 | HHI.PR ---
Neuropsych Emotional Emotional: UnabletoAssess: Emotional, Anxious/Fearful, Depressed/Sad, Hostile/ Resentful, Irritable/Angry/Frustrate, Labile, Constricted/Blunted Behavior Behavior: Unable to Asses: Behavior, Coping/Acceptance, Cooperative w/ Treatment, Motivation, Frustration Tolerance/[place], Impulsive/Agitated, Suicidal/ Homicidal Risk Cognitive Cognitive: Unable to Asses: Cognitive, Attention/Concentration, Confused/ Orientation, Insight/Awareness, Judgement/Problem-Solving, Memory Psychosocial Psychosocial: Mild: Psychosocial, Family/Other Adjustment, Realistic Expectation, Unable to Asses: Self-Esteem/Confidence Progress Notes/Response to Tx Contents of Sessions: Level of Consciousness Time with Patient: 30 minutes Premorbid psychological status Premorbid Cognitive, Emotional and Behavioral Status: Stable. 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 The patient has no prior psychiatric difficulties, as described above. Substance abuse history is unremarkable. She is , and [facility]. Behavioral Reactions of Patient and Family/Support System: Tenuous. The patients family is experiencing ongoing issues of adjustment given the nature of the injury, and this aspect of recovery will require ongoing monitoring. Emotional/Behavioral Status of Patient and Family/Support System: Tenuous. Pertinent issues, if appropriate to this patients clinical care, are described in detail above. Maximizing acute care outcome This patient is very early into her recovery from her sustained traumatic brain injury, and presently medical recovery takes precedence over neurobehavioral recovery. As she improves, it is recommended that the patient be monitored for emergent behavioral impulsivity. This patients neuropathological challenges may limit their rehabilitation potential going forward, and these challenges will require specialized therapeutic skills to maximize outcome. Additionally, the patients family is experiencing ongoing issues of adjustment given the traumatic nature of the injury, and they will need ongoing psychological assistance, which I will provide. Anticipated Problems Presently, the most pressing concern is her medical recovery. As she progresses , ongoing areas of concern will likely include behavioral impulsivity, lack of insight and judgment, which is expected to improve with time and treatment. Presently, the patient in coma, unresponsive and sedated. Treatment Plan This clinician will continue to follow with you throughout the course of this patients rehabilitation treatment, and I will be available to meet with the patients family/support system to facilitate their understanding and the ongoing care of their family member. The goals of neuropsychological intervention shall be both educational and supportive to the family/support system as is deemed clinically appropriate. [facility] Level: II:General response-total assist Impression This patient suffered a severe traumatic brain injury, with the likely probability of persistent neurocognitive impairment, depending on multiple medical factors. Diagnosis: (1) Major neurocognitive disorder as late effect of traumatic brain injury without behavioral disturbance Status: Acute Progress Note Narrative Ongoing follow-up of patient both within context of daily trauma rounds and bedside, with and father. 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 The patient was observed to open her eyes, inconsistently smile to command, moving her right arm, but not her left. I provided ongoing psychological support and neuropsychological education to both the and father as they weigh consideration to transfer to more intensive neurobehavioral rehabilitation. Until that time, I will continue to follow with you. Elver Cook PhD Jan 08, 2017 12:02 pm
[2017-01-08] MEDS ORDERED: ALBUMIN HUMAN 5% 25 GM/500 ML BOTTLE IV ONE (12:15)
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
[2017-01-08] MEDS: IBUPROFEN SUSP 100 MG/5 ML UDC PO PRN (14:16)
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
[2017-01-08] MEDS: PANTOPRAZOLE SODIUM 40 MG VIAL IV SCH (16:00)
--- NOTE | 2017-01-08 16:22 | MG ---
cc: MUNIR RODRIGEZ M.D. Lab No: [id number] Date: 01/08/2017 Age: Sex: F Race: Cc. TECHNIQUE 17 channel EEG. DESCRIPTION Background rhythm shows generalized slowing in theta and delta frequencies. The amplitude is attenuated over the right hemisphere compared to the left. There is some asymmetry. Occasional sharp activity is seen over the left hemisphere with phase reversal. INTERPRETATION Abnormal study of basic generalized slowing with diminished amplitude over the right hemisphere. There is sharp activity with phase reversal over the left hemisphere suggestive of an epileptic focus in that area. MD TABBY Howe/winston /4:14 PM /4:20 PM
[2017-01-08] MEDS ORDERED: methylPREDNISolone SOD SUCC 125 MG/2 ML VIAL ONE (18:40)
[2017-01-08] MEDS ORDERED: methylPREDNISolone SOD SUCC 125 MG/2 ML VIAL IV ONE (19:30)
[2017-01-08] MEDS: MAGNESIUM HYDROXIDE SUSP 30 ML CUP PO SCH (19:37)
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
[2017-01-08] MEDS ORDERED: methylPREDNISolone SOD SUCC 125 MG/2 ML VIAL IV PUSH ONE ×2 (23:30→23:45)
[2017-01-09] VITALS (14 sets, daily range): BP systolic 96–140; BP diastolic 51–73; PULSE 96–114; RESP 10–16; TEMP 97.3–98.8; O2SAT 96–100
[2017-01-09] MEDS: SODIUM CHLOR 0.9% 1000 ML INJ 1,000 ML IV SCH ×2 (02:30→15:07)
[2017-01-09] MEDS: CHLORHEXIDINE GLUCONATE 2 % 1 PACK (2 CLOTHS)(taper/protocol) TOP SCH (04:00)
--- NOTE | 2017-01-09 04:26 | RADRPT ---
EXAM DATE/TIME: 01/09/2017 03:04 [facility] COMPARISON: CHEST SINGLE AP, January 06, 2017, 4:05. INDICATIONS : Evaluate for respiratory disease. MEDICAL HISTORY : None. SURGICAL HISTORY : Tracheostomy. ENCOUNTER: Subsequent ACUITY: 3 weeks PAIN SCORE: Non-responsive. LOCATION: chest FINDINGS: The cardiac silhouette is normal in transverse diameter. Support lines and tubes are in satisfactory position. The lungs are free of acute parenchymal opacity. No effusions are identified. CONCLUSION: 1. No acute cardiopulmonary disease. Wander Brooke MD on January 09, 2017 at 4:24 Board Certified Radiologist. This report was verified electronically.
[2017-01-09] MEDS: PROPRANOLOL HCL 20 MG TAB PO SCH ×3 (06:00→22:03)
[2017-01-09 06:22] LABS: BASOPHIL % 0.2 % (0.0-2.0); EOSINOPHIL % 0.1 % (0.0-4.0); HEMO FLAGS DIFF FINAL; LYMPH % 6.9 % (9.0-44.0); LYMPHOCYTE # 0.5 TH/MM3 (1.0-4.8); MEAN CELL VOLUME 90.3 FL (80.0-100.0); MEAN CORPUSCULAR HEMOGLOBIN 31.1 PG (27.0-34.0); MEAN CORPUSCULAR HGB CONC 34.4 % (32.0-36.0); MONO % 2.4 % (0.0-8.0); NEUT % 90.4 % (16.0-70.0); PLATELET COUNT 314 TH/MM3 (150-450); RED BLOOD COUNT 2.77 MIL/MM3 (4.00-5.30); RED CELL DISTRIBUTION WIDTH 15.4 % (11.6-17.2); WHITE BLOOD COUNT 7.8 TH/MM3 (4.0-11.0)
[2017-01-09 06:36] LABS: ALT (GPT) 116 U/L (10-53); ANION GAP 6 MEQ/L (5-15); AST (GOT) 78 U/L (15-37); BICARBONATE 32.5 MEQ/L (21.0-32.0); BLOOD UREA NITROGEN 32 MG/DL (7-18); CHLORIDE 115 MEQ/L (98-107); GLOMERULAR FILTRATION RATE 157 ML/MIN (>89); MAGNESIUM 2.9 MG/DL (1.5-2.5); SODIUM (NA) 153 MEQ/L (136-145)
[2017-01-09 06:39] LABS: ALKALINE PHOSPHATASE 121 U/L (45-117); TOTAL BILIRUBIN ADULT 0.4 MG/DL (0.2-1.0)
[2017-01-09] MEDS ORDERED: BROM2.5 PO (07:12)
[2017-01-09] MEDS ORDERED: SENN1TAB PO (07:12)
[2017-01-09] MEDS ORDERED: OXYC1CON3 PO (07:12)
[2017-01-09] MEDS ORDERED: FAMO1TAB37 PO (07:12)
[2017-01-09] MEDS ORDERED: BISA10R RECTAL (07:12)
[2017-01-09] MEDS ORDERED: CHIL100S14 PO (07:12)
[2017-01-09] MEDS ORDERED: LACT10SO PO (07:12)
[2017-01-09] MEDS ORDERED: HYOS0.129 PO (07:12)
[2017-01-09] MEDS ORDERED: MILKSUS PO (07:12)
[2017-01-09] MEDS: MUPIROCIN 2% OINT 1 APPLIC/GM SYR NASAL SCH ×2 (08:04→21:00)
[2017-01-09] MEDS: BROMOCRIPTINE MESYLATE 2.5 MG TAB PO SCH ×2 (08:04→22:02)
[2017-01-09] MEDS: levETIRAcetam INJ 500 MG in SODIUM CHLORIDE 0.9% INJ 100 ML IV SCH ×2 (08:05→22:00)
[2017-01-09] MEDS: CHLORHEXIDINE 0.12% (ORAL KIT) 15 ML CUP MT SCH ×2 (08:05→19:48)
[2017-01-09] MEDS: ARTIFICIAL TEARS OPTH OINT 3.5 APPLIC/3.5 GM TUBO EACH EYE SCH ×2 (08:05→21:00)
[2017-01-09] MEDS: SODIUM CHLORIDE 0.9% FLUSH 5 ML FLUSH IVF SCH ×2 (08:05→21:00)
[2017-01-09] MEDS: LACTULOSE SYRUP 20 GM/30 ML CUP PO SCH (08:05)
[2017-01-09] MEDS: VALPROIC ACID SYRUP 250 MG/5 ML UDC PEG SCH ×2 (08:05→22:01)
[2017-01-09] MEDS: DOCUSATE SODIUM 50 MG/SENNA 8.6 MG TAB PO SCH ×2 (08:06→22:02)
[2017-01-09] MEDS: BISACODYL 10 MG SUPP RECTAL SCH (08:06)
[2017-01-09] MEDS: VALPROATE INJ 500 MG in SODIUM CHLORIDE 0.9% INJ 100 ML IV SCH ×3 (10:44→22:00)
--- NOTE | 2017-01-09 12:13 | HHI.PR ---
Neuropsych Progress Notes/Response to Tx Contents of Sessions: Level of Consciousness Time with Patient: 30 minutes Premorbid psychological status Premorbid Cognitive, Emotional and Behavioral Status: Stable. 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 The patient has no prior psychiatric difficulties, as described above. Substance abuse history is unremarkable. She is , and [facility]. Behavioral Reactions of Patient and Family/Support System: Tenuous. The patients family is experiencing ongoing issues of adjustment given the nature of the injury, and this aspect of recovery will require ongoing monitoring. Emotional/Behavioral Status of Patient and Family/Support System: Tenuous. Pertinent issues, if appropriate to this patients clinical care, are described in detail above. Maximizing acute care outcome This patient is very early into her recovery from her sustained traumatic brain injury, and presently medical recovery takes precedence over neurobehavioral recovery. As she improves, it is recommended that the patient be monitored for emergent behavioral impulsivity. This patients neuropathological challenges may limit their rehabilitation potential going forward, and these challenges will require specialized therapeutic skills to maximize outcome. Additionally, the patients family is experiencing ongoing issues of adjustment given the traumatic nature of the injury, and they will need ongoing psychological assistance, which I will provide. Anticipated Problems Presently, the most pressing concern is her medical recovery. As she progresses , ongoing areas of concern will likely include behavioral impulsivity, lack of insight and judgment, which is expected to improve with time and treatment. Presently, the patient in coma, unresponsive and sedated. Treatment Plan This clinician will continue to follow with you throughout the course of this patients rehabilitation treatment, and I will be available to meet with the patients family/support system to facilitate their understanding and the ongoing care of their family member. The goals of neuropsychological intervention shall be both educational and supportive to the family/support system as is deemed clinically appropriate. [facility] Level: III:Localized response-total assist Impression This patient suffered a severe traumatic brain injury, with the likely probability of persistent neurocognitive impairment, depending on multiple medical factors. Diagnosis: (1) Major neurocognitive disorder as late effect of traumatic brain injury without behavioral disturbance Status: Acute Progress Note Narrative Ongoing follow-up of patient both within the context of daily trauma rounding and bedside, with discussions with and patient's sister. This patient is improving neurobehaviorally, with evidence of responsiveness to physical discomfort, and inconsistent following of commands. The patient had been having seizure activity that is now being pharmacologically managed. I discussed with the patient's and sister that post-traumatic seizure disorder is a medical condition that frequently accompanies traumatic brain injury. It is my understanding that this patient is ready for discharge to [facility]. Until that time, I shall continue to follow with you. Elver Cook PhD Jan 09, 2017 12:13 pm
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
[2017-01-09] MEDS: PANTOPRAZOLE SODIUM 40 MG VIAL IV SCH (17:24)
[2017-01-09] MEDS: MAGNESIUM HYDROXIDE SUSP 30 ML CUP PO SCH (22:02)
[2017-01-10] VITALS (14 sets, daily range): BP systolic 79–117; BP diastolic 43–72; PULSE 80–108; RESP 12–15; TEMP 97.8–100; O2SAT 98–100
[2017-01-10] MEDS: SODIUM CHLOR 0.9% 1000 ML INJ 1,000 ML IV SCH ×2 (03:42→15:21)
[2017-01-10] MEDS: CHLORHEXIDINE GLUCONATE 2 % 1 PACK (2 CLOTHS)(taper/protocol) TOP SCH ×2 (04:00→23:32)
[2017-01-10 05:17] LABS: AUTOMATED NEUTROPHIL # 4.9 TH/MM3 (1.8-7.7); BASOPHIL # 0.1 TH/MM3 (0-0.2); BASOPHIL % 1.1 % (0.0-2.0); EOSINOPHIL # 0.1 TH/MM3 (0-0.4); EOSINOPHIL % 1.7 % (0.0-4.0); HEMATOCRIT 24.7 % (35.0-46.0); HEMO FLAGS DIFF FINAL; LYMPHOCYTE # 1.4 TH/MM3 (1.0-4.8); MEAN CELL VOLUME 90.4 FL (80.0-100.0); MEAN CORPUSCULAR HEMOGLOBIN 29.5 PG (27.0-34.0); MEAN CORPUSCULAR HGB CONC 32.7 % (32.0-36.0); MONO % 8.1 % (0.0-8.0); NEUT % 69.1 % (16.0-70.0); PLATELET COUNT 292 TH/MM3 (150-450); RED BLOOD COUNT 2.73 MIL/MM3 (4.00-5.30); RED CELL DISTRIBUTION WIDTH 15.5 % (11.6-17.2); WHITE BLOOD COUNT 7.1 TH/MM3 (4.0-11.0)
[2017-01-10 05:40] LABS: ANION GAP 8 MEQ/L (5-15); AST (GOT) 67 U/L (15-37); BICARBONATE 30.4 MEQ/L (21.0-32.0); BLOOD UREA NITROGEN 33 MG/DL (7-18); CHLORIDE 114 MEQ/L (98-107); GLOMERULAR FILTRATION RATE 146 ML/MIN (>89); MAGNESIUM 2.8 MG/DL (1.5-2.5); POTASSIUM 3.7 MEQ/L (3.5-5.1); SODIUM (NA) 152 MEQ/L (136-145)
[2017-01-10 05:43] LABS: ALKALINE PHOSPHATASE 103 U/L (45-117); ALT (GPT) 97 U/L (10-53); TOTAL BILIRUBIN ADULT 0.3 MG/DL (0.2-1.0)
[2017-01-10] MEDS: VALPROATE INJ 500 MG in SODIUM CHLORIDE 0.9% INJ 100 ML IV SCH ×3 (06:25→23:32)
[2017-01-10] MEDS: PROPRANOLOL HCL 20 MG TAB PO SCH ×3 (06:25→23:32)
--- NOTE | 2017-01-10 06:28 | RADRPT ---
EXAM DATE/TIME: 01/10/2017 04:39 [facility] COMPARISON: CHEST SINGLE AP, January 09, 2017, 3:04. INDICATIONS : Shortness of breath. MEDICAL HISTORY : None. SURGICAL HISTORY : Tracheostomy. ENCOUNTER: Subsequent ACUITY: 3 weeks PAIN SCORE: Non-responsive. LOCATION: Bilateral chest FINDINGS: A single view of the chest demonstrates the lungs to be symmetrically aerated without evidence of mas s, infiltrate or effusion. The cardiomediastinal contours are unremarkable. Osseous structures are intact. CONCLUSION: 1. No acute cardiopulmonary disease. Wander Brooke MD on January 10, 2017 at 6:27 Board Certified Radiologist. This report was verified electronically.
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
[2017-01-10] MEDS: VALPROIC ACID SYRUP 250 MG/5 ML UDC PEG SCH ×2 (08:03→23:30)
[2017-01-10] MEDS: SODIUM CHLORIDE 0.9% FLUSH 5 ML FLUSH IVF SCH ×2 (08:03→23:30)
[2017-01-10] MEDS: LACTULOSE SYRUP 20 GM/30 ML CUP PO SCH (08:03)
[2017-01-10] MEDS: levETIRAcetam INJ 500 MG in SODIUM CHLORIDE 0.9% INJ 100 ML IV SCH ×2 (08:04→23:29)
[2017-01-10] MEDS: ARTIFICIAL TEARS OPTH OINT 3.5 APPLIC/3.5 GM TUBO EACH EYE SCH ×2 (08:04→21:00)
[2017-01-10] MEDS: CHLORHEXIDINE 0.12% (ORAL KIT) 15 ML CUP MT SCH ×2 (08:04→20:00)
[2017-01-10] MEDS: MUPIROCIN 2% OINT 1 APPLIC/GM SYR NASAL SCH ×2 (08:04→21:00)
[2017-01-10] MEDS: BISACODYL 10 MG SUPP RECTAL SCH (08:05)
[2017-01-10] MEDS: DOCUSATE SODIUM 50 MG/SENNA 8.6 MG TAB PO SCH ×2 (08:05→23:31)
[2017-01-10] MEDS: BROMOCRIPTINE MESYLATE 2.5 MG TAB PO SCH ×2 (08:05→23:31)
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
[2017-01-10] MEDS: ENOXAPARIN SODIUM 40 MG/0.4 ML SYRINGE SQ SCH (14:26)
[2017-01-10] MEDS: PANTOPRAZOLE SODIUM 40 MG VIAL IV SCH (16:56)
[2017-01-10] MEDS: MAGNESIUM HYDROXIDE SUSP 30 ML CUP PO SCH (23:31)
[2017-01-11] VITALS (14 sets, daily range): BP systolic 102–139; BP diastolic 58–86; PULSE 78–100; RESP 13–19; TEMP 98.5–98.9; O2SAT 99–100
[2017-01-11 04:49] LABS: AUTOMATED NEUTROPHIL # 3.6 TH/MM3 (1.8-7.7); BASOPHIL % 0.8 % (0.0-2.0); EOSINOPHIL # 0.4 TH/MM3 (0-0.4); HEMATOCRIT 26.5 % (35.0-46.0); HEMO FLAGS DIFF FINAL; LYMPH % 27.1 % (9.0-44.0); LYMPHOCYTE # 1.6 TH/MM3 (1.0-4.8); MEAN CELL VOLUME 88.8 FL (80.0-100.0); MEAN CORPUSCULAR HEMOGLOBIN 29.4 PG (27.0-34.0); MEAN CORPUSCULAR HGB CONC 33.1 % (32.0-36.0); NEUT % 59.1 % (16.0-70.0); PLATELET COUNT 279 TH/MM3 (150-450); RED BLOOD COUNT 2.99 MIL/MM3 (4.00-5.30); RED CELL DISTRIBUTION WIDTH 15.5 % (11.6-17.2); WHITE BLOOD COUNT 6.1 TH/MM3 (4.0-11.0)
[2017-01-11 05:18] LABS: ALT (GPT) 84 U/L (10-53); ANION GAP 7 MEQ/L (5-15); AST (GOT) 53 U/L (15-37); BICARBONATE 29.9 MEQ/L (21.0-32.0); BLOOD UREA NITROGEN 23 MG/DL (7-18); CHLORIDE 110 MEQ/L (98-107); GLOMERULAR FILTRATION RATE 182 ML/MIN (>89); POTASSIUM 3.7 MEQ/L (3.5-5.1); SODIUM (NA) 147 MEQ/L (136-145)
[2017-01-11 05:20] LABS: ALKALINE PHOSPHATASE 102 U/L (45-117); TOTAL BILIRUBIN ADULT 0.4 MG/DL (0.2-1.0)
[2017-01-11] MEDS: SODIUM CHLOR 0.9% 1000 ML INJ 1,000 ML IV SCH ×2 (05:48→16:01)
[2017-01-11] MEDS: PROPRANOLOL HCL 20 MG TAB PO SCH ×3 (05:48→22:00)
[2017-01-11] MEDS: VALPROATE INJ 500 MG in SODIUM CHLORIDE 0.9% INJ 100 ML IV SCH ×2 (05:48→13:37)
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
[2017-01-11] MEDS: LACTULOSE SYRUP 20 GM/30 ML CUP PO SCH (08:25)
[2017-01-11] MEDS: MUPIROCIN 2% OINT 1 APPLIC/GM SYR NASAL SCH ×2 (08:25→22:21)
[2017-01-11] MEDS: BROMOCRIPTINE MESYLATE 2.5 MG TAB PO SCH ×2 (08:26→22:22)
[2017-01-11] MEDS: levETIRAcetam INJ 500 MG in SODIUM CHLORIDE 0.9% INJ 100 ML IV SCH ×2 (08:26→22:21)
[2017-01-11] MEDS: DOCUSATE SODIUM 50 MG/SENNA 8.6 MG TAB PO SCH ×2 (08:26→21:00)
[2017-01-11] MEDS: VALPROIC ACID SYRUP 250 MG/5 ML UDC PEG SCH ×2 (08:26→22:20)
[2017-01-11] MEDS: SODIUM CHLORIDE 0.9% FLUSH 5 ML FLUSH IVF SCH ×2 (08:31→22:21)
[2017-01-11] MEDS: ARTIFICIAL TEARS OPTH OINT 3.5 APPLIC/3.5 GM TUBO EACH EYE SCH ×2 (08:32→22:22)
[2017-01-11] MEDS: CHLORHEXIDINE 0.12% (ORAL KIT) 15 ML CUP MT SCH ×2 (08:33→22:21)
[2017-01-11] MEDS: BISACODYL 10 MG SUPP RECTAL SCH (08:49)
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
[2017-01-11] MEDS: HYOSCYAMINE 0.125 MG TAB PO PRN (13:36)
[2017-01-11] MEDS: ENOXAPARIN SODIUM 40 MG/0.4 ML SYRINGE SQ SCH (13:36)
[2017-01-11] MEDS: PANTOPRAZOLE SODIUM 40 MG VIAL IV SCH (16:00)
--- NOTE | 2017-01-11 18:26 | HHI.PR ---
Review/Management Diagnosis s/p TBI with left hemisphere subdural hematoma s/p evacuation with focal sz. lethargy Plan repeat CT brain repeat eeg check vpa and keppra levels Dr Rivas to follow up tomorrow. Diagnosis/Plan: Subjective Subjective Comments No acute events reported No witnessed seizures on vpa and keppra Her family feels she is more sedated since starting sz meds. Active Medications Current Medications Medications (Trade) Dose Ordered Sig/Raji Route Start Time Stop Time Status Last Admin (NS Flush) 2 ml UNSCH PRN IVF 12/15/16 14:30 (NS Flush) 2 ml BID IVF 12/15/16 21:00 01/10/17 23:30 (Zofran Inj) 4 mg Q6H PRN IV 12/15/16 14:30 (Protonix Inj) 40 mg Q24H IV 12/15/16 16:00 01/11/17 16:00 Naloxone HCl 0.4 mg 0.4 mg UNSCH PRN IV 12/15/16 14:30 Potassium Chloride 100 ml @ 50 mls/hr Q2H PRN IV 12/15/16 15:00 01/01/17 18:23 (KCl 20 Meq Premix Inj) 100 ml @ 50 mls/hr Q2H PRN IV 12/15/16 15:00 Potassium Chloride 40 meq 40 meq UNSCH PRN PO/TUBE 12/15/16 15:00 01/01/17 18:23 Potassium Chloride 100 ml @ 25 mls/hr UNSCH PRN IV 12/15/16 15:00 12/29/16 05:22 Potassium Chloride 100 ml @ 50 mls/hr Q2H PRN IV 12/15/16 15:00 (Magnesium Sulfate Inj/NS Inj) 100 ml @ 50 mls/hr UNSCH PRN IV 12/15/16 15:00 Magnesium Oxide 800 mg 800 mg UNSCH PRN PO 12/15/16 15:00 (Magnesium Sulfate Inj/NS Inj) 100 ml @ 50 mls/hr UNSCH PRN IV 12/15/16 15:00 Potassium Phosphate 2000 mg 2,000 mg Q4H PRN PO 12/15/16 15:00 (Sodium Phosphate Inj/NS 250 ml Inj) 250 ml @ 42 mls/hr UNSCH PRN IV 12/15/16 15:00 12/29/16 11:42 (KCl 40 Meq/30 ml Liq) 40 meq UNSCH PRN PO/TUBE 12/15/16 15:00 Potassium Phosphate 2000 mg 2,000 mg UNSCH PRN PO/TUBE 12/15/16 15:00 (Potassium Phosphate Inj/NS 250 ml Inj) 260 ml @ 42 mls/hr UNSCH PRN IV 12/15/16 15:00 12/20/16 21:30 (Peridex 0.12% Liq) 15 ml BID@08,20 MT 12/15/16 20:00 01/11/17 08:33 (Tears Naturale Opth Soln) 1 drop Q4H PRN EACH EYE 12/16/16 20:15 12/27/16 20:37 (Malu-Colace) 1 tab BID PO 12/17/16 09:00 01/11/17 08:26 (Lacrilube Opht Oint) 1 applic BID EACH EYE 12/17/16 09:00 01/11/17 08:32 (Lacrilube Opht Oint) 1 applic UNSCH PRN EACH EYE 12/17/16 08:30 12/17/16 16:00 (Lactulose Liq) 30 ml DAILY PO 12/18/16 09:00 01/11/17 08:25 (Motrin Liq) 200 mg Q6H PRN PO 12/22/16 18:15 01/08/17 14:16 (Parlodel) 2.5 mg Q12HR PO 12/23/16 09:00 01/11/17 08:26 (Milk Of Magnesia Liq) 30 ml HS PO 12/26/16 21:00 01/10/17 23:31 (Trandate Inj) 20 mg Q4H PRN IVP 12/26/16 11:15 12/26/16 11:29 (Roxicodone Intensol Liq) 5 mg Q4H PRN PO 12/27/16 13:00 01/06/17 20:18 (Levsin) 0.125 mg Q4H PRN PO 12/28/16 14:00 01/11/17 13:36 (Dulcolax Supp) 10 mg DAILY RECTAL 12/29/16 09:45 01/06/17 09:11 (Inderal) 20 mg Q8HR PO 01/05/17 21:26 01/11/17 13:37 Miscellaneous Information Patient in critical care unit? Ass... [id number] XX 01/07/17 14:30 (Bactroban Nasal 2% Oint) 1 applic BID NASAL 01/07/17 21:00 01/11/17 08:25 (Chlorhexidine 2% Cloth) 3 pack DAILY@04 TOP 01/08/17 04:00 01/12/17 04:01 01/10/17 04:00 (Chlorhexidine 2% Cloth) 3 pack UNSCH PRN TOP 01/07/17 14:30 01/12/17 14:23 Valproic Acid 250 mg 250 mg BID PEG 01/07/17 19:00 01/11/17 08:26 Levetriacetam 500 mg/Sodium Chloride 105 ml @ 420 mls/hr Q12HR IV 01/07/17 19:00 01/11/17 08:26 Sodium Chloride 1,000 ml @ 80 mls/hr [id number] IV 01/08/17 01:30 01/11/17 16:01 (Depacon Inj/NS Inj) 105 ml @ 105 mls/hr Q8HR IV 01/09/17 10:00 01/11/17 13:37 (Lovenox Inj) 40 mg Q24H SQ 01/10/17 13:00 01/11/17 13:36 Allergies Allergies Coded Allergies No Known Allergies (Unverified12/15/16) Review of Systems All other ROS: Unable to obtain Exam I&O / VS 01/10/17 01/10/17 01/11/17 15:00 23:00 07:00 Intake Total 1251 ml 1110 ml 1020 ml Output Total 800 ml 901 ml 851 ml Balance 451 ml 209 ml 169 ml Intake Oral 0 ml 0 ml IV Total 761 ml 600 ml 625 ml Tube Feeding 440 ml 390 ml 275 ml Tube Irrigant 50 ml Other 120 ml 120 ml Output Urine Total 800 ml 900 ml 850 ml Stool Total 1 ml 1 ml # Bowel Movements 1 Vital Signs Date Time Temp Pulse Resp B/P Pulse Ox O2 Delivery O2 Flow Rate FiO2 01/11/17 18:00 84 01/11/17 16:00 100 01/11/17 16:00 98.9 100 19 137/61 99 01/11/17 14:00 92 01/11/17 12:00 98 01/11/17 12:00 98.5 98 15 139/77 100 01/11/17 10:00 91 01/11/17 09:30 100 T-piece 5.00 28 01/11/17 08:00 98.7 91 18 102/58 100 01/11/17 08:00 91 01/11/17 06:00 89 01/11/17 04:00 90 01/11/17 04:00 98.8 90 16 115/66 100 01/11/17 02:00 86 01/11/17 00:00 81 01/11/17 00:00 98.7 90 13 126/86 100 01/10/17 22:00 88 01/10/17 21:08 100 T-piece 5.00 28 01/10/17 20:00 97 01/10/17 20:00 97.8 98 12 116/56 100 Respiratory: Other (Trach in place) Musculoskeletal: ROM (Grossly within functional limits) Exam Comments nonresponsive perrl no clinical sz activity Objective Micro and Labs Laboratory Tests Test 01/11/17 04:18 White Blood Count 6.1 Red Blood Count 2.99 Hemoglobin 8.8 Hematocrit 26.5 Mean Corpuscular Volume 88.8 Mean Corpuscular Hemoglobin 29.4 Mean Corpuscular Hemoglobin 33.1 Concent Red Cell Distribution Width 15.5 Platelet Count 279 Mean Platelet Volume 9.3 Neutrophils (%) (Auto) 59.1 Lymphocytes (%) (Auto) 27.1 Monocytes (%) (Auto) 7.0 Eosinophils (%) (Auto) 6.0 Basophils (%) (Auto) 0.8 Neutrophils # (Auto) 3.6 Lymphocytes # (Auto) 1.6 Monocytes # (Auto) 0.4 Eosinophils # (Auto) 0.4 Basophils # (Auto) 0.0 CBC Comment DIFF FINAL Differential Comment Sodium Level 147 Potassium Level 3.7 Chloride Level 110 Carbon Dioxide Level 29.9 Anion Gap 7 Blood Urea Nitrogen 23 Creatinine 0.43 Estimat Glomerular Filtration 182 Rate Random Glucose 105 Serum Osmolality 310 Calcium Level 8.6 Magnesium Level 3.0 Total Bilirubin 0.4 Aspartate Amino Transf 53 (AST/SGOT) Alanine Aminotransferase 84 (ALT/SGPT) Alkaline Phosphatase 102 Total Protein 6.8 Albumin 2.8 Marciano Green PhD MD Jan 11, 2017 18:26
[2017-01-11] MEDS: MAGNESIUM HYDROXIDE SUSP 30 ML CUP PO SCH (21:00)
[2017-01-11] MEDS ORDERED: ATROPINE SULFATE 1 MG/10 ML SYRINGE ONE (21:01)
[2017-01-11] MEDS ORDERED: LIDOCAINE HCL 2% 100 MG/5 ML SYRINGE ONE (21:01)
[2017-01-11] MEDS ORDERED: EPINEPHrine HCL (1:10,000) 1 MG/10 ML SYRINGE ONE (21:01)
--- NOTE | 2017-01-11 21:45 | RADRPT ---
EXAM DATE/TIME: 01/11/2017 21:16 [facility] COMPARISON: CTA BRAIN W 3D RECON, January 01, 2017, 10:25. INDICATIONS : Follow up trauma; post bone flap removal. RADIATION DOSE: 40.40 CTDIvol (mGy) MEDICAL HISTORY : None SURGICAL HISTORY : Craniotomy. ENCOUNTER: Subsequent ACUITY: 1 month PAIN SCALE: Non-responsive LOCATION: cranial TECHNIQUE: Multiple contiguous axial images were obtained of the head. Using automated exposure control and adj ustment of the mA and/or kV according to patient size, radiation dose was kept as low as reasonably a chievable to obtain optimal diagnostic quality images. FINDINGS: Comparison is CTA brain from January 01. Previous extra-axial fluid collection on the left at the aircraft body repairer niotomy defect is nearly completely resolved. There is less brain swelling and there is now some issa nkage of the left cerebral hemisphere at the craniectomy defect. Currently there is no significant mi dline shift. No hydrocephalus. No new extra-axial fluid collections are present. CONCLUSION: 1. Near-complete resolution of previous extra-axial fluid collection at the left craniotomy defect wi th decreased brain edema and interval volume loss along the peripheral aspect of the left hemisphere anteriorly. No new fluid collections. No hydrocephalus. Lacunar infarct in the basal ganglia bret Leone MD on January 11, 2017 at 21:41 Board Certified Radiologist. This report was verified electronically.
[2017-01-12] VITALS (12 sets, daily range): BP systolic 86–118; BP diastolic 48–66; PULSE 78–102; RESP 9–12; TEMP 98.1–98.8; O2SAT 98–100
[2017-01-12] MEDS: VALPROATE INJ 500 MG in SODIUM CHLORIDE 0.9% INJ 100 ML IV SCH ×2 (00:17→06:47)
[2017-01-12 05:18] LABS: ALT (GPT) 61 U/L (10-53); ANION GAP 9 MEQ/L (5-15); AST (GOT) 40 U/L (15-37); BICARBONATE 26.9 MEQ/L (21.0-32.0); BLOOD UREA NITROGEN 23 MG/DL (7-18); CHLORIDE 109 MEQ/L (98-107); GLOMERULAR FILTRATION RATE 216 ML/MIN (>89); MAGNESIUM 2.7 MG/DL (1.5-2.5); POTASSIUM 3.6 MEQ/L (3.5-5.1); SODIUM (NA) 145 MEQ/L (136-145)
[2017-01-12 05:21] LABS: ALKALINE PHOSPHATASE 85 U/L (45-117); TOTAL BILIRUBIN ADULT 0.3 MG/DL (0.2-1.0)
[2017-01-12] MEDS: PROPRANOLOL HCL 20 MG TAB PO SCH ×4 (06:00→22:00)
[2017-01-12 06:25] LABS: AUTOMATED NEUTROPHIL # 3.1 TH/MM3 (1.8-7.7); BASOPHIL % 0.8 % (0.0-2.0); EOSINOPHIL # 0.5 TH/MM3 (0-0.4); EOSINOPHIL % 8.9 % (0.0-4.0); HEMATOCRIT 24.5 % (35.0-46.0); HEMO FLAGS DIFF FINAL; LYMPH % 28.5 % (9.0-44.0); LYMPHOCYTE # 1.6 TH/MM3 (1.0-4.8); MEAN CELL VOLUME 89.6 FL (80.0-100.0); MEAN CORPUSCULAR HEMOGLOBIN 29.8 PG (27.0-34.0); MEAN CORPUSCULAR HGB CONC 33.2 % (32.0-36.0); MONO % 6.8 % (0.0-8.0); PLATELET COUNT 223 TH/MM3 (150-450); RED BLOOD COUNT 2.73 MIL/MM3 (4.00-5.30); RED CELL DISTRIBUTION WIDTH 15.1 % (11.6-17.2); WHITE BLOOD COUNT 5.7 TH/MM3 (4.0-11.0)
[2017-01-12] MEDS: SODIUM CHLOR 0.9% 1000 ML INJ 1,000 ML IV SCH (06:43)
[2017-01-12] MEDS: CHLORHEXIDINE GLUCONATE 2 % 1 PACK (2 CLOTHS)(taper/protocol) TOP SCH (06:44)
[2017-01-12] MEDS ORDERED: ENOX40P SQ (07:20)
[2017-01-12] MEDS: CHLORHEXIDINE 0.12% (ORAL KIT) 15 ML CUP MT SCH ×2 (08:00→21:15)
[2017-01-12] MEDS: BISACODYL 10 MG SUPP RECTAL SCH (09:00)
[2017-01-12] MEDS: LACTULOSE SYRUP 20 GM/30 ML CUP PO SCH (09:00)
[2017-01-12] MEDS: ARTIFICIAL TEARS OPTH OINT 3.5 APPLIC/3.5 GM TUBO EACH EYE SCH ×2 (09:00→21:00)
[2017-01-12] MEDS: DOCUSATE SODIUM 50 MG/SENNA 8.6 MG TAB PO SCH ×2 (09:00→21:12)
[2017-01-12] MEDS: VALPROIC ACID SYRUP 250 MG/5 ML UDC PEG SCH ×2 (09:03→21:12)
[2017-01-12] MEDS: levETIRAcetam INJ 500 MG in SODIUM CHLORIDE 0.9% INJ 100 ML IV SCH ×2 (09:03→21:14)
[2017-01-12] MEDS: MUPIROCIN 2% OINT 1 APPLIC/GM SYR NASAL SCH ×2 (09:03→21:12)
[2017-01-12] MEDS: BROMOCRIPTINE MESYLATE 2.5 MG TAB PO SCH ×2 (09:03→21:12)
[2017-01-12] MEDS: SODIUM CHLORIDE 0.9% FLUSH 5 ML FLUSH IVF SCH ×2 (09:05→21:15)
--- NOTE | 2017-01-12 12:15 | HHI.PR ---
Neuropsych Progress Notes/Response to Tx Contents of Sessions: Adjustment, Level of Consciousness Time with Patient: 30 minutes Premorbid psychological status Premorbid Cognitive, Emotional and Behavioral Status: Stable. 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 The patient has no prior psychiatric difficulties, as described above. Substance abuse history is unremarkable. She is , and [facility]. Behavioral Reactions of Patient and Family/Support System: Tenuous. The patients family is experiencing ongoing issues of adjustment given the nature of the injury, and this aspect of recovery will require ongoing monitoring. Emotional/Behavioral Status of Patient and Family/Support System: Tenuous. Pertinent issues, if appropriate to this patients clinical care, are described in detail above. Maximizing acute care outcome This patient is very early into her recovery from her sustained traumatic brain injury, and presently medical recovery takes precedence over neurobehavioral recovery. As she improves, it is recommended that the patient be monitored for emergent behavioral impulsivity. This patients neuropathological challenges may limit their rehabilitation potential going forward, and these challenges will require specialized therapeutic skills to maximize outcome. Additionally, the patients family is experiencing ongoing issues of adjustment given the traumatic nature of the injury, and they will need ongoing psychological assistance, which I will provide. Anticipated Problems Presently, the most pressing concern is her medical recovery. As she progresses , ongoing areas of concern will likely include behavioral impulsivity, lack of insight and judgment, which is expected to improve with time and treatment. Presently, the patient in coma, unresponsive and sedated. Treatment Plan This clinician will continue to follow with you throughout the course of this patients rehabilitation treatment, and I will be available to meet with the patients family/support system to facilitate their understanding and the ongoing care of their family member. The goals of neuropsychological intervention shall be both educational and supportive to the family/support system as is deemed clinically appropriate. [facility] Level: III:Localized response-total assist Impression This patient suffered a severe traumatic brain injury, with the likely probability of persistent neurocognitive impairment, depending on multiple medical factors. Diagnosis: (1) Major neurocognitive disorder as late effect of traumatic brain injury without behavioral disturbance Status: Acute Progress Note Narrative Ongoing follow-up of patient both within the context of daily trauma rounding and bedside, where I also had the opportunity to discuss with the patient's mother. The patient is more alert and following commands, albeit inconsistently at times. There has been a concern about her neurobehavioral status seeming more lethargic and as such she is to be sent for a brain MRI. The patient is planning to discharge to [facility], and until that time I will continue to follow with you. Elver Cook PhD Jan 12, 2017 12:15 pm
--- NOTE | 2017-01-12 12:24 | HHI.PR ---
Subjective Remarks still not waking up Objective Vital Signs Date Time Temp Pulse Resp B/P Pulse Ox O2 Delivery O2 Flow Rate FiO2 01/12/17 12:00 98.5 81 10 107/55 98 01/12/17 12:00 81 01/12/17 10:00 102 01/12/17 08:00 87 01/12/17 08:00 100 T-piece 6.00 28 01/12/17 08:00 98.1 87 10 100/58 100 01/12/17 06:00 94 01/12/17 04:00 85 01/12/17 04:00 98.8 85 12 86/49 99 01/12/17 02:00 80 01/12/17 00:00 78 01/12/17 00:00 98.2 78 9 90/48 100 01/11/17 22:00 78 01/11/17 20:23 100 T-piece 6.00 28 01/11/17 20:00 98.9 84 18 124/78 100 01/11/17 20:00 80 01/11/17 18:00 84 01/11/17 16:00 100 01/11/17 16:00 98.9 100 19 137/61 99 01/11/17 14:00 92 I/O 01/11/17 01/11/17 01/11/17 01/12/17 01/12/17 01/12/17 07:00 15:00 23:00 07:00 15:00 23:00 Intake Total 1020 ml 1553 ml 1069 ml 1445 ml Output Total 851 ml 1175 ml 650.0 ml 650.0 ml 0 ml Balance 169 ml 378 ml 419.0 ml 795.0 ml 0 ml Intake Oral 0 ml IV Total 625 ml 887 ml 686 ml 931 ml Tube Feeding 275 ml 546 ml 263 ml 414 ml Other 120 ml 120 ml 120 ml 100 ml Output Urine Total 850 ml 1175 ml 550 ml 550 ml Stool Total 1 ml Tube Feeding Residual Discard 100.0 ml 100.0 ml 0 ml # Bowel Movements 4 0 asleep some eye fluttering with sternal rub. not following commands some grimace with rom left arm withdrawl feet to babinski Result Diagram: 01/12/17 0351 01/12/[address] brain sdh improved b/l bg hypodensities. Other Results vpa 99 Assessment and Plan Assessment and Plan sz-decrease vpa to 250mg via g tube check level in am if still >80 then hold doses until level is at 50.stopped 500mg iv bid dose,cont keppra 500 mg bid for now repeat eeg today and mri brain d/w pts mother at bedside Ashtyn Rivas MD Jan 12, 2017 12:24
[2017-01-12] MEDS: ENOXAPARIN SODIUM 40 MG/0.4 ML SYRINGE SQ SCH (13:22)
--- NOTE | 2017-01-12 14:25 | MG ---
cc: MARIBEL GAFFNEY M.D. Lab No: [id number] Date: 01/12/2017 Age: 21 Sex: F Race: DATE OF : 1995 Room 1309 with photic stimulation. No seditives. Repeat EEG. She has a trache. On Keppra and Depakote. Last EEG 12/24/2016 showed generalized slowing with diminished over the right hemisphere, sharp activity with phase reversals over the left. CT near complete resolution of previous subdural left craniotomy defect, decreased edema, status post left decompressive craniotomy of subdural hematoma. DESCRIPTION OF RECORD The patient still has high amplitude activity over the left hemisphere. This is more likely a breach rhythm due to the patient's craniotomy defect. Right hemisphere still has some theta 5, 5-1/2 Hz slowing. A lot of eye fluttering artifact seen. Photic stimulation does not cause a posterior driving response. No appreciable epileptic activity is noted, there is just some slowing over the right hemisphere with high amplitude waves over the left consistent with what looks like a breach rhythm. Clinical correlation. MD ARI Potter/TLL /1:50 PM /2:21 PM
--- NOTE | 2017-01-12 15:22 | RADRPT ---
EXAM DATE/TIME: 01/12/2017 14:37 [facility] COMPARISON: CT BRAIN W/O CONTRAST, January 11, 2017, 21:16. INDICATIONS : Trauma with possible stroke. MEDICAL HISTORY : None. SURGICAL HISTORY : Craniotomy. ENCOUNTER: Subsequent ACUITY: 1 month PAIN SCORE: 2/10 LOCATION: head TECHNIQUE: Multiplanar, multisequence MRI of the brain was performed without contrast. FINDINGS: Left craniotomy is appreciated with normal brain substance and no evidence of extracerebral defect. A reas of abnormal diffusion are noted bilateral basal ganglia more prominent on the right than the lef t with no specific diffusion abnormality and additionally similar findings of increased signal intens ity T2 and flair imaging in both the right and left occipital lobes parasagittally more prominent in the right than the left. There is no diffusion abnormality in these regions. CONCLUSION: Prior right craniotomy evacuation of subdural hematoma. Of infarct without diffusion abnormality tay cating these are probably somewhat remote bilateral basal ganglia and bilateral occipital lobes more prominent on the right than the left. Sp Enrique MD on January 12, 2017 at 15:18 Board Certified Radiologist. This report was verified electronically.
[2017-01-12] MEDS: PANTOPRAZOLE SODIUM 40 MG VIAL IV SCH (16:29)
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
[2017-01-12] MEDS: MAGNESIUM HYDROXIDE SUSP 30 ML CUP PO SCH (21:00)
[2017-01-13] VITALS (15 sets, daily range): BP systolic 95–135; BP diastolic 45–76; PULSE 86–109; RESP 14–21; TEMP 98.5–99.6; O2SAT 96–100
[2017-01-13 04:07] LABS: HEMATOCRIT 26.4 % (35.0-46.0); MEAN CORPUSCULAR HEMOGLOBIN 29.8 PG (27.0-34.0); MEAN CORPUSCULAR HGB CONC 33.4 % (32.0-36.0); PLATELET COUNT 261 TH/MM3 (150-450); RED BLOOD COUNT 2.97 MIL/MM3 (4.00-5.30); RED CELL DISTRIBUTION WIDTH 15.5 % (11.6-17.2); REVIEW FLAG FINAL; WHITE BLOOD COUNT 5.4 TH/MM3 (4.0-11.0)
[2017-01-13 04:28] LABS: BICARBONATE 28.7 MEQ/L (21.0-32.0); POTASSIUM 3.9 MEQ/L (3.5-5.1)
[2017-01-13] MEDS: PROPRANOLOL HCL 20 MG TAB PO SCH ×3 (06:00→22:00)
[2017-01-13] MEDS: CHLORHEXIDINE 0.12% (ORAL KIT) 15 ML CUP MT SCH ×2 (08:00→21:24)
[2017-01-13] MEDS: DOCUSATE SODIUM 50 MG/SENNA 8.6 MG TAB PO SCH ×2 (08:15→21:27)
[2017-01-13] MEDS: VALPROIC ACID SYRUP 250 MG/5 ML UDC PEG SCH ×2 (08:15→21:30)
[2017-01-13] MEDS: MUPIROCIN 2% OINT 1 APPLIC/GM SYR NASAL SCH ×2 (08:15→21:27)
[2017-01-13] MEDS: BROMOCRIPTINE MESYLATE 2.5 MG TAB PO SCH ×2 (08:15→21:27)
[2017-01-13] MEDS: SODIUM CHLORIDE 0.9% FLUSH 5 ML FLUSH IVF SCH ×2 (08:16→21:28)
[2017-01-13] MEDS: ARTIFICIAL TEARS OPTH OINT 3.5 APPLIC/3.5 GM TUBO EACH EYE SCH ×2 (08:16→22:11)
[2017-01-13] MEDS: levETIRAcetam INJ 500 MG in SODIUM CHLORIDE 0.9% INJ 100 ML IV SCH ×2 (08:16→21:28)
[2017-01-13] MEDS: LACTULOSE SYRUP 20 GM/30 ML CUP PO SCH (08:16)
[2017-01-13] MEDS: BISACODYL 10 MG SUPP RECTAL SCH (08:16)
--- NOTE | 2017-01-13 12:27 | HHI.PR ---
Neuropsych Progress Notes/Response to Tx Contents of Sessions: Level of Consciousness Premorbid psychological status Premorbid Cognitive, Emotional and Behavioral Status: Stable. 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 The patient has no prior psychiatric difficulties, as described above. Substance abuse history is unremarkable. 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 Behavioral Reactions of Patient and Family/Support System: Tenuous. The patients family is experiencing ongoing issues of adjustment given the nature of the injury, and this aspect of recovery will require ongoing monitoring. Emotional/Behavioral Status of Patient and Family/Support System: Tenuous. Pertinent issues, if appropriate to this patients clinical care, are described in detail above. Maximizing acute care outcome This patient is very early into her recovery from her sustained traumatic brain injury, and presently medical recovery takes precedence over neurobehavioral recovery. As she improves, it is recommended that the patient be monitored for emergent behavioral impulsivity. This patients neuropathological challenges may limit their rehabilitation potential going forward, and these challenges will require specialized therapeutic skills to maximize outcome. Additionally, the patients family is experiencing ongoing issues of adjustment given the traumatic nature of the injury, and they will need ongoing psychological assistance, which I will provide. Anticipated Problems Presently, the most pressing concern is her medical recovery. As she progresses , ongoing areas of concern will likely include behavioral impulsivity, lack of insight and judgment, which is expected to improve with time and treatment. Presently, the patient in coma, unresponsive and sedated. Treatment Plan This clinician will continue to follow with you throughout the course of this patients rehabilitation treatment, and I will be available to meet with the patients family/support system to facilitate their understanding and the ongoing care of their family member. The goals of neuropsychological intervention shall be both educational and supportive to the family/support system as is deemed clinically appropriate. [facility] Level: III:Localized response-total assist Impression This patient suffered a severe traumatic brain injury, with the likely probability of persistent neurocognitive impairment, depending on multiple medical factors. Diagnosis: (1) Major neurocognitive disorder as late effect of traumatic brain injury without behavioral disturbance Status: Acute Progress Note Narrative Ongoing follow-up with patient within the context of trauma rounding. The patient is reportedly stable neurobehaviorally and is awaiting discharge to acute rehab or SNF. I plan to return to patient's room later today to discuss ongoing treatment with patient's , along with case management. I will document this meeting in tomorrow's note. I will continue to follow with you. Elver Cook PhD Jan 13, 2017 12:27 pm
[2017-01-13] MEDS: ENOXAPARIN SODIUM 40 MG/0.4 ML SYRINGE SQ SCH (13:02)
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
[2017-01-13] MEDS: PANTOPRAZOLE SODIUM 40 MG VIAL IV SCH (18:34)
[2017-01-13] MEDS: MAGNESIUM HYDROXIDE SUSP 30 ML CUP PO SCH (21:28)
[2017-01-14] VITALS (14 sets, daily range): BP systolic 87–133; BP diastolic 48–81; PULSE 86–107; RESP 10–17; TEMP 98.5–98.8; O2SAT 93–100
[2017-01-14 04:53] LABS: HEMATOCRIT 27.9 % (35.0-46.0); MEAN CELL VOLUME 87.3 FL (80.0-100.0); MEAN CORPUSCULAR HEMOGLOBIN 29.4 PG (27.0-34.0); MEAN CORPUSCULAR HGB CONC 33.7 % (32.0-36.0); PLATELET COUNT 263 TH/MM3 (150-450); RED CELL DISTRIBUTION WIDTH 15.7 % (11.6-17.2); REVIEW FLAG FINAL; WHITE BLOOD COUNT 6.2 TH/MM3 (4.0-11.0)
[2017-01-14 05:19] LABS: BICARBONATE 28.9 MEQ/L (21.0-32.0); POTASSIUM 4.1 MEQ/L (3.5-5.1)
[2017-01-14] MEDS: PROPRANOLOL HCL 20 MG TAB PO SCH ×3 (05:37→22:05)
[2017-01-14] MEDS: SODIUM CHLORIDE 0.9% FLUSH 5 ML FLUSH IVF SCH ×2 (08:04→21:12)
[2017-01-14] MEDS: BISACODYL 10 MG SUPP RECTAL SCH (09:00)
[2017-01-14] MEDS: ARTIFICIAL TEARS OPTH OINT 3.5 APPLIC/3.5 GM TUBO EACH EYE SCH ×2 (09:00→21:13)
[2017-01-14] MEDS: LACTULOSE SYRUP 20 GM/30 ML CUP PO SCH (09:00)
[2017-01-14] MEDS: VALPROIC ACID SYRUP 250 MG/5 ML UDC PEG SCH (10:15)
[2017-01-14] MEDS: CHLORHEXIDINE 0.12% (ORAL KIT) 15 ML CUP MT SCH ×2 (10:15→21:14)
[2017-01-14] MEDS: levETIRAcetam INJ 500 MG in SODIUM CHLORIDE 0.9% INJ 100 ML IV SCH (10:15)
[2017-01-14] MEDS: MUPIROCIN 2% OINT 1 APPLIC/GM SYR NASAL SCH ×2 (10:16→21:11)
[2017-01-14] MEDS: DOCUSATE SODIUM 50 MG/SENNA 8.6 MG TAB PO SCH ×2 (10:16→21:12)
[2017-01-14] MEDS: BROMOCRIPTINE MESYLATE 2.5 MG TAB PO SCH ×2 (10:16→21:12)
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
[2017-01-14] MEDS: VALPROATE INJ 500 MG in SODIUM CHLORIDE 0.9% INJ 100 ML IV SCH ×2 (12:08→21:11)
[2017-01-14] MEDS ORDERED: levETIRAcetam 250 MG/NS 100 ML IV SCH ×2 (13:00)
[2017-01-14] MEDS: ENOXAPARIN SODIUM 40 MG/0.4 ML SYRINGE SQ SCH (13:02)
--- NOTE | 2017-01-14 13:39 | HHI.PR ---
Neuropsych Progress Notes/Response to Tx Contents of Sessions: Level of Consciousness Time with Patient: 30 minutes Premorbid psychological status Premorbid Cognitive, Emotional and Behavioral Status: Stable. 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 The patient has no prior psychiatric difficulties, as described above. Substance abuse history is unremarkable. She is , and [facility]. Behavioral Reactions of Patient and Family/Support System: Tenuous. The patients family is experiencing ongoing issues of adjustment given the nature of the injury, and this aspect of recovery will require ongoing monitoring. Emotional/Behavioral Status of Patient and Family/Support System: Tenuous. Pertinent issues, if appropriate to this patients clinical care, are described in detail above. Maximizing acute care outcome This patient is very early into her recovery from her sustained traumatic brain injury, and presently medical recovery takes precedence over neurobehavioral recovery. As she improves, it is recommended that the patient be monitored for emergent behavioral impulsivity. This patients neuropathological challenges may limit their rehabilitation potential going forward, and these challenges will require specialized therapeutic skills to maximize outcome. Additionally, the patients family is experiencing ongoing issues of adjustment given the traumatic nature of the injury, and they will need ongoing psychological assistance, which I will provide. Anticipated Problems Presently, the most pressing concern is her medical recovery. As she progresses , ongoing areas of concern will likely include behavioral impulsivity, lack of insight and judgment, which is expected to improve with time and treatment. Presently, the patient in coma, unresponsive and sedated. Treatment Plan This clinician will continue to follow with you throughout the course of this patients rehabilitation treatment, and I will be available to meet with the patients family/support system to facilitate their understanding and the ongoing care of their family member. The goals of neuropsychological intervention shall be both educational and supportive to the family/support system as is deemed clinically appropriate. [facility] Level: III:Localized response-total assist Impression This patient suffered a severe traumatic brain injury, with the likely probability of persistent neurocognitive impairment, depending on multiple medical factors. Diagnosis: (1) Major neurocognitive disorder as late effect of traumatic brain injury without behavioral disturbance Status: Acute Progress Note Narrative Ongoing follow-up of patient both within context of daily trauma rounding and bedside, with discussion with patient's . From a neurobehavioral standpoint, there has been minimal change compared to yesterday, with the patient spontaneously opening her eyes, following commands inconsistently. I provided ongoing education concerning her continued recovery of functioning, stressing the need that the patient's family will need to learn to care for her going forward despite rehabilitative efforts. I will continue to follow with you. Elver Cook PhD Jan 14, 2017 13:39
[2017-01-14] MEDS: PANTOPRAZOLE SODIUM 40 MG VIAL IV SCH (15:52)
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
--- NOTE | 2017-01-14 16:44 | HHI.PR ---
Subjective Remarks Abnormal eeg today increased depakote dose and keppra Objective Vital Signs Date Time Temp Pulse Resp B/P Pulse Ox O2 Delivery O2 Flow Rate FiO2 01/14/17 16:00 92 01/14/17 16:00 98.5 92 13 114/71 93 01/14/17 14:00 86 01/14/17 12:00 106 01/14/17 12:00 T-Piece 21 01/14/17 12:00 98.5 106 13 133/81 96 01/14/17 11:56 96 T-piece 21 01/14/17 10:00 91 01/14/17 08:00 107 01/14/17 08:00 98.8 107 11 87/48 100 01/14/17 08:00 T-Piece 28 01/14/17 06:00 99 01/14/17 04:00 96 01/14/17 04:00 98.8 100 17 105/67 100 01/14/17 02:00 93 01/14/17 00:00 96 01/14/17 00:00 98.5 95 10 97/50 100 01/13/17 22:00 107 01/13/17 20:56 100 T-piece 5.00 28 01/13/17 20:00 104 01/13/17 20:00 99.6 96 19 104/76 100 01/13/17 18:00 108 I/O 01/13/17 01/13/17 01/13/17 01/14/17 01/14/17 01/14/17 07:00 15:00 23:00 07:00 15:00 23:00 Intake Total 699 ml 1107 ml 1031 ml 880 ml 848 ml Output Total 500 ml 1250 ml 1480 ml 500 ml 600 ml 0 ml Balance 199 ml -143 ml -449 ml 380 ml 248 ml 0 ml IV Total 149 ml 374 ml 344 ml 228 ml 428 ml Tube Feeding 350 ml 533 ml 487 ml 452 ml 360 ml Tube Irrigant 60 ml Other 200 ml 200 ml 200 ml 200 ml Output Urine Total 500 ml 1250 ml 1450 ml 500 ml 600 ml Stool Total 30 ml Tube Feeding Residual Discard 0 ml 0 ml # Bowel Movements 0 1 1 arouses opens eyes followed simple commands off and on. some motor noted over right side. Result Diagram: 01/14/1740401/14/17404 Assessment and Plan Assessment and Plan sz seen on eeg s/p sdh tbi -increase vpa 500 mg bid iv not peg -increase keppra 750 mg bid iv -eeg in am and vpa level d/w at length plan . will follow along as needed and advise and adjust meds please keep in icu until reassess tomorrow. Ashtyn Rivas MD Jan 14, 2017 16:44
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
[2017-01-14] MEDS ORDERED: levETIRAcetam INJ 750 MG in SODIUM CHLORIDE 0.9% INJ 100 ML IV SCH (21:00)
[2017-01-14] MEDS: MAGNESIUM HYDROXIDE SUSP 30 ML CUP PO SCH (21:12)
[2017-01-14] MEDS: levETIRAcetam INJ 750 MG in SODIUM CHLORIDE 0.9% INJ 100 ML IV SCH (22:01)
[2017-01-15] VITALS (14 sets, daily range): BP systolic 88–125; BP diastolic 46–80; PULSE 82–111; RESP 10–16; TEMP 97.9–98.8; O2SAT 99–100
[2017-01-15] MEDS: PROPRANOLOL HCL 20 MG TAB PO SCH ×3 (06:00→22:29)
[2017-01-15] MEDS: SODIUM CHLORIDE 0.9% FLUSH 5 ML FLUSH IVF SCH ×2 (07:13→22:08)
[2017-01-15] MEDS: LACTULOSE SYRUP 20 GM/30 ML CUP PO SCH (07:14)
[2017-01-15] MEDS: BISACODYL 10 MG SUPP RECTAL SCH (07:14)
[2017-01-15] MEDS: DOCUSATE SODIUM 50 MG/SENNA 8.6 MG TAB PO SCH ×2 (09:00→21:00)
[2017-01-15] MEDS ORDERED: levETIRAcetam INJ 750 MG in SODIUM CHLORIDE 0.9% INJ 100 ML IV SCH (09:00)
[2017-01-15] MEDS: ARTIFICIAL TEARS OPTH OINT 3.5 APPLIC/3.5 GM TUBO EACH EYE SCH ×2 (09:00→22:07)
[2017-01-15] MEDS: CHLORHEXIDINE 0.12% (ORAL KIT) 15 ML CUP MT SCH ×2 (09:02→20:00)
[2017-01-15] MEDS: MUPIROCIN 2% OINT 1 APPLIC/GM SYR NASAL SCH ×2 (09:03→22:08)
[2017-01-15] MEDS: VALPROATE INJ 500 MG in SODIUM CHLORIDE 0.9% INJ 100 ML IV SCH ×2 (09:03→22:06)
[2017-01-15] MEDS: BROMOCRIPTINE MESYLATE 2.5 MG TAB PO SCH ×2 (09:04→22:07)
[2017-01-15] MEDS: levETIRAcetam INJ 750 MG in SODIUM CHLORIDE 0.9% INJ 100 ML IV SCH ×2 (09:07→22:06)
--- NOTE | 2017-01-15 11:20 | MG ---
cc: MARIBEL GAFFNEY M.D. Lab No: [id number] Date: 01/15/2017 Age: 21 Sex: F Race: DATE OF 1995 ROOM: 1309 EEG: #[id number] NOTE Only photic stimulation. Last EEG showed abnormalities of the left hemisphere. MEDICATIONS CURRENTLY 1. Keppra. 2. Depakote. DESCRIPTION OF RECORD This is a follow-up EEG. Initially it shows that the patient does have some eye fluttering, high amplitude waves seen predominantly over the left hemisphere. There is mouth twitching which may be consistent with seizure. Then by epoch 60 some improvement, lower amplitude. Activity decreases significantly, may be a normal variant at this point due to patient having craniectomy. IMPRESSION Abnormal EEG due to some seizure-like activity. Initial portion of the EEG is still concerning for paroxysmal seizures in this patient with traumatic brain injury, subdural hematoma. Will adjust medications and add phenobarbital since therapeutic on Depakote and already on Keppra. Follow-up EEG will be initiated accordingly. MD ARI Potter/KATHRINE /10:53 AM /11:03 AM
--- NOTE | 2017-01-15 12:02 | HHI.PR ---
Neuropsych Progress Notes/Response to Tx Time with Patient: 30 minutes Premorbid psychological status Premorbid Cognitive, Emotional and Behavioral Status: Stable. 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 The patient has no prior psychiatric difficulties, as described above. Substance abuse history is unremarkable. 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 Behavioral Reactions of Patient and Family/Support System: Tenuous. The patients family is experiencing ongoing issues of adjustment given the nature of the injury, and this aspect of recovery will require ongoing monitoring. Emotional/Behavioral Status of Patient and Family/Support System: Tenuous. Pertinent issues, if appropriate to this patients clinical care, are described in detail above. Maximizing acute care outcome This patient is very early into her recovery from her sustained traumatic brain injury, and presently medical recovery takes precedence over neurobehavioral recovery. As she improves, it is recommended that the patient be monitored for emergent behavioral impulsivity. This patients neuropathological challenges may limit their rehabilitation potential going forward, and these challenges will require specialized therapeutic skills to maximize outcome. Additionally, the patients family is experiencing ongoing issues of adjustment given the traumatic nature of the injury, and they will need ongoing psychological assistance, which I will provide. Anticipated Problems Presently, the most pressing concern is her medical recovery. As she progresses , ongoing areas of concern will likely include behavioral impulsivity, lack of insight and judgment, which is expected to improve with time and treatment. Presently, the patient in coma, unresponsive and sedated. Treatment Plan This clinician will continue to follow with you throughout the course of this patients rehabilitation treatment, and I will be available to meet with the patients family/support system to facilitate their understanding and the ongoing care of their family member. The goals of neuropsychological intervention shall be both educational and supportive to the family/support system as is deemed clinically appropriate. [facility] Level: III:Localized response-total assist Impression This patient suffered a severe traumatic brain injury, with the likely probability of persistent neurocognitive impairment, depending on multiple medical factors. Diagnosis: (1) Major neurocognitive disorder as late effect of traumatic brain injury without behavioral disturbance Status: Acute Progress Note Narrative Ongoing follow-up of patient both within trauma rounds and bedside. Discussion with . Facilitated drafting of an appeals letter for her insurer to get her comprehensive inpatient rehab. Discussed with attending physician. I will continue to follow. Elver Cook PhD Jan 15, 2017 12:02 pm
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
[2017-01-15] MEDS: ENOXAPARIN SODIUM 40 MG/0.4 ML SYRINGE SQ SCH (13:50)
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
--- NOTE | 2017-01-15 16:29 | HHI.PR ---
Subjective Remarks still some sz activity on eeg but better Objective Vital Signs Date Time Temp Pulse Resp B/P Pulse Ox O2 Delivery O2 Flow Rate FiO2 01/15/17 16:00 107 01/15/17 16:00 97.9 107 12 125/80 100 01/15/17 14:00 100 01/15/17 12:00 90 01/15/17 12:00 97.9 97 11 113/72 100 01/15/17 10:02 100 T-piece 21 01/15/17 10:00 82 01/15/17 08:00 97 01/15/17 08:00 98.8 97 10 88/48 99 01/15/17 07:00 99 T-Piece 21 01/15/17 06:00 90 01/15/17 04:00 98.7 101 16 121/69 99 01/15/17 04:00 101 01/15/17 02:00 103 01/15/17 00:00 98.7 104 16 91/46 99 01/15/17 00:00 104 01/14/17 22:00 103 01/14/17 21:10 93 T-piece 4.00 21 01/14/17 20:00 98.6 94 16 121/80 98 01/14/17 20:00 94 01/14/17 19:00 T-Piece 21 01/14/17 18:00 97 I/O 01/14/17 01/14/17 01/14/17 01/15/17 01/15/17 01/15/17 07:00 15:00 23:00 07:00 15:00 23:00 Intake Total 880 ml 848 ml 979 ml 902 ml 703 ml Output Total 500 ml 600 ml 1000 ml 650 ml 725 ml 0 ml Balance 380 ml 248 ml -21 ml 252 ml -22 ml 0 ml IV Total 228 ml 428 ml 263 ml 242 ml 266 ml Tube Feeding 452 ml 360 ml 516 ml 460 ml 377 ml Tube Irrigant 60 ml 60 ml Other 200 ml 200 ml 200 ml Output Urine Total 500 ml 600 ml 1000 ml 650 ml 725 ml Tube Feeding Residual Discard 0 ml 0 ml 0 ml 0 ml 0 ml # Bowel Movements 1 0 somnolent arouses tries to follow not consistent clonus ankles b/l Result Diagram: 01/14/1740401/14/17404 Assessment and Plan Assessment and Plan sz seen on eeg better than yesterday s/p sdh tbi - vpa 500 mg bid iv - keppra 750 mg bid iv -PB added bid vpa/pb level and eeg in am. d/w possibly going to [facility] tomorrow as I can follow at that facility as well. Ashtyn Rivas MD Jan 15, 2017 16:29
[2017-01-15] MEDS: PANTOPRAZOLE SODIUM 40 MG VIAL IV SCH (16:49)
[2017-01-15] MEDS: MIDODRINE 5 MG TAB PO SCH (16:49)
[2017-01-15] MEDS: MAGNESIUM HYDROXIDE SUSP 30 ML CUP PO SCH (21:00)
[2017-01-16] VITALS (10 sets, daily range): BP systolic 108–115; BP diastolic 58–69; PULSE 86–106; RESP 1–14; TEMP 98.1–99.1; O2SAT 98–100
[2017-01-16 04:57] LABS: PHENOBARBITAL 5.2 MCG/ML (15.0-40.0)
[2017-01-16] MEDS: PROPRANOLOL HCL 20 MG TAB PO SCH ×2 (06:00→14:46)
[2017-01-16] MEDS: MIDODRINE 5 MG TAB PO SCH ×4 (06:04→17:00)
[2017-01-16] MEDS: BROMOCRIPTINE MESYLATE 2.5 MG TAB PO SCH (08:36)
[2017-01-16] MEDS: CHLORHEXIDINE 0.12% (ORAL KIT) 15 ML CUP MT SCH (08:36)
[2017-01-16] MEDS: ARTIFICIAL TEARS OPTH OINT 3.5 APPLIC/3.5 GM TUBO EACH EYE SCH (08:36)
[2017-01-16] MEDS: DOCUSATE SODIUM 50 MG/SENNA 8.6 MG TAB PO SCH (08:37)
[2017-01-16] MEDS: SODIUM CHLORIDE 0.9% FLUSH 5 ML FLUSH IVF SCH (08:37)
[2017-01-16] MEDS: LACTULOSE SYRUP 20 GM/30 ML CUP PO SCH (08:37)
[2017-01-16] MEDS: VALPROATE INJ 500 MG in SODIUM CHLORIDE 0.9% INJ 100 ML IV SCH (08:37)
[2017-01-16] MEDS: BISACODYL 10 MG SUPP RECTAL SCH (08:37)
[2017-01-16] MEDS: levETIRAcetam INJ 750 MG in SODIUM CHLORIDE 0.9% INJ 100 ML IV SCH (08:37)
[2017-01-16] MEDS: MUPIROCIN 2% OINT 1 APPLIC/GM SYR NASAL SCH (08:45)
[2017-01-16] MEDS ORDERED: SODIUM CHLOR 0.9% 1000 ML INJ 1,000 ML IV ONE (08:57)
--- NOTE | 2017-01-16 10:36 | HHI.PR ---
Neuropsych Progress Notes/Response to Tx Time with Patient: 15 minutes Premorbid psychological status Premorbid Cognitive, Emotional and Behavioral Status: Stable. 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 The patient has no prior psychiatric difficulties, as described above. Substance abuse history is unremarkable. 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 Behavioral Reactions of Patient and Family/Support System: Tenuous. The patients family is experiencing ongoing issues of adjustment given the nature of the injury, and this aspect of recovery will require ongoing monitoring. Emotional/Behavioral Status of Patient and Family/Support System: Tenuous. Pertinent issues, if appropriate to this patients clinical care, are described in detail above. Maximizing acute care outcome This patient is very early into her recovery from her sustained traumatic brain injury, and presently medical recovery takes precedence over neurobehavioral recovery. As she improves, it is recommended that the patient be monitored for emergent behavioral impulsivity. This patients neuropathological challenges may limit their rehabilitation potential going forward, and these challenges will require specialized therapeutic skills to maximize outcome. Additionally, the patients family is experiencing ongoing issues of adjustment given the traumatic nature of the injury, and they will need ongoing psychological assistance, which I will provide. Anticipated Problems Presently, the most pressing concern is her medical recovery. As she progresses , ongoing areas of concern will likely include behavioral impulsivity, lack of insight and judgment, which is expected to improve with time and treatment. Presently, the patient in coma, unresponsive and sedated. Treatment Plan This clinician will continue to follow with you throughout the course of this patients rehabilitation treatment, and I will be available to meet with the patients family/support system to facilitate their understanding and the ongoing care of their family member. The goals of neuropsychological intervention shall be both educational and supportive to the family/support system as is deemed clinically appropriate. [facility] Level: III:Localized response-total assist Impression This patient suffered a severe traumatic brain injury, with the likely probability of persistent neurocognitive impairment, depending on multiple medical factors. Diagnosis: (1) Major neurocognitive disorder as late effect of traumatic brain injury without behavioral disturbance Status: Acute Progress Note Narrative Ongoing follow-up of patient. Patient's is to tour [facility] with the anticipation of patient's transfer today or tomorrow. This professional is encouraging to choose this opportunity. From a neurobehavioral standpoint, this patient is essentially unchanged compared to yesterday, hence the need for more aggressive neurobehavioral rehabilitative efforts. I will attempt to follow-up with the patient's later today, and will continue to follow with you until her discharge. Elver Cook PhD Jan 16, 2017 10:36 am
[2017-01-16 10:41] LABS: AUTOMATED NEUTROPHIL # 5.2 TH/MM3 (1.8-7.7); BASOPHIL # 0.1 TH/MM3 (0-0.2); BASOPHIL % 0.7 % (0.0-2.0); EOSINOPHIL # 0.4 TH/MM3 (0-0.4); EOSINOPHIL % 5.1 % (0.0-4.0); HEMATOCRIT 27.8 % (35.0-46.0); LYMPH % 21.3 % (9.0-44.0); LYMPHOCYTE # 1.7 TH/MM3 (1.0-4.8); MEAN CELL VOLUME 87.5 FL (80.0-100.0); MEAN CORPUSCULAR HEMOGLOBIN 29.2 PG (27.0-34.0); MEAN CORPUSCULAR HGB CONC 33.4 % (32.0-36.0); MONO % 8.9 % (0.0-8.0); PLATELET COUNT 258 TH/MM3 (150-450); RED BLOOD COUNT 3.18 MIL/MM3 (4.00-5.30); RED CELL DISTRIBUTION WIDTH 16.3 % (11.6-17.2); WHITE BLOOD COUNT 8.1 TH/MM3 (4.0-11.0)
[2017-01-16 10:45] LABS: HEMO FLAGS AUTO DIFF
[2017-01-16 11:11] LABS: ALKALINE PHOSPHATASE 91 U/L (45-117); ALT (GPT) 49 U/L (10-53); ANION GAP 10 MEQ/L (5-15); AST (GOT) 47 U/L (15-37); BICARBONATE 27.3 MEQ/L (21.0-32.0); BLOOD UREA NITROGEN 25 MG/DL (7-18); CHLORIDE 103 MEQ/L (98-107); GLOMERULAR FILTRATION RATE 137 ML/MIN (>89); POTASSIUM 4.1 MEQ/L (3.5-5.1); SODIUM (NA) 140 MEQ/L (136-145); TOTAL BILIRUBIN ADULT 0.3 MG/DL (0.2-1.0)
[2017-01-16] MEDS ORDERED: VALP250C PO (11:55)
[2017-01-16] MEDS ORDERED: MIDO5TAB PO (11:55)
[2017-01-16] MEDS ORDERED: [UNRECOGNIZED DRUG - CODE] IV (11:55)
[2017-01-16] MEDS ORDERED: LEVE500 PO (11:55)
[2017-01-16 11:56] LABS: BANDS 5 % (0-6); EOSINOPHILS 8 % (0-4); MYELOCYTES 5 % (0-0); NEUTROPHIL # MANUAL DIFF 5.3 TH/MM3 (1.8-7.7); POLYS (SEG NEUTROPHILS) 55 % (16-70); WBC DIFF SAMPLE 100
[2017-01-16 11:58] LABS: PLATELET ESTIMATE SMEAR NORMAL (NORMAL); PLATELET MORPHOLOGY NORMAL (NORMAL); SCAN/DIFF FINAL DIFF MANUAL
[2017-01-16] MEDS: ENOXAPARIN SODIUM 40 MG/0.4 ML SYRINGE SQ SCH (13:18)
[2017-01-16] MEDS: PANTOPRAZOLE SODIUM 40 MG VIAL IV SCH (15:47)
[2017-01-16] MEDS ORDERED: PANT40P PO (16:01)
--- NOTE | 2017-01-16 16:10 | MG ---
cc: MARIBEL GAFFNEY M.D. Lab No: [id number] Date: Age: 21 Sex: F Race: ROOM: [facility]. This is a repeat EEG. HISTORY: History of left craniectomy. MEDICATIONS: Depakote, Keppra and phenobarbital. DESCRIPTION OF RECORD: There are still high amplitude waves seen over the left hemisphere. Noted some shaking of the leg. There is some spike and slow waves; however, this does look improved from prior EEGs. The right hemisphere shows just a background slowing predominately of 4 Hz. Amplitude change at times it is larger and then becomes smaller, but photic stimulation did elicit a minimal driving response. IMPRESSION: Abnormal EEG due to some spike and slow waves still seen over the left hemisphere but improved from prior EEG; also background slowing in this EEG is seen. Clinical correlation. MD ARI Potter/BRIANA /3:49 PM /4:04 PM
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
--- NOTE | 2017-01-16 19:00 | EC ---
Study Study Date:01/16/2017 STUDY CONCLUSIONS SUMMARY LEFT VENTRICLE: The cavity size was normal. Wall thickness was normal. Systolic function was normal. The estimated ejection fraction was in the range of 55% to 60%. Wall motion was normal; there were no regional wall motion abnormalities. If LV function is below 40, please consider prescribing an ACEI or ARB or document rationale for non-use. PROCEDURE DATA STUDY STATUS: Elective. Procedure: Transthoracic echocardiography. Image quality was good. Scanning was performed from the parasternal, apical, and subcostal acoustic windows. Study completion: The patient tolerated the procedure well. Transthoracic echocardiography. M-mode, complete 2D, complete spectral Doppler, and color Doppler. Patient status: Inpatient. CARDIAC ANATOMY LEFT VENTRICLE: The cavity size was normal. Wall thickness was normal. Systolic function was normal. The estimated ejection fraction was in the range of 55% to 60%. Wall motion was normal; there were no regional wall motion abnormalities. AORTIC VALVE: Trileaflet; normal thickness leaflets. Doppler: Transvalvular velocity was within the normal range. There was no stenosis. No regurgitation. AORTA: Aortic root: The aortic root was normal in size. MITRAL VALVE: Structurally normal valve. Doppler: Transvalvular velocity was within the normal range. There was no evidence for stenosis. No regurgitation. LEFT ATRIUM: The atrium was normal in size. RIGHT VENTRICLE: The cavity size was normal. Wall thickness was normal. PULMONIC VALVE: Doppler: Transvalvular velocity was within the normal range. There was no evidence for stenosis. No regurgitation. TRICUSPID VALVE: Structurally normal valve. Doppler: Transvalvular velocity was within the normal range. No regurgitation. PULMONARY ARTERY: The main pulmonary artery was normal-sized. Systolic pressure was within the normal range. RIGHT ATRIUM: The atrium was normal in size. PERICARDIUM: There was no pericardial effusion. SYSTEMIC VEINS: Inferior vena cava: The vessel was normal in size. Prepared and signed by German Clark [id number]
[2017-01-19 19:53] LABS: CREATININE RANDOM URINE 3.8 mmol/L (2.38-26.55)
== END 2017-01-16 17:36 | DRG 3 ==
LOC: NEPI 07:44 → NEDA 08:45 → EDBD 08:45 → N03A 13:23
PROVIDERS: ADMIT Surgery; ATTEND Surgery
PROC: 009630Z Drainage of Cerebral Ventricle with Drainage Device, Percutaneous Approach (ICD-10-PCS; 2016-12-15)
PROC: 0DQV0ZZ Repair Mesentery, Open Approach (ICD-10-PCS; 2016-12-15)
PROC: 0WCG0ZZ Extirpation of Matter from Peritoneal Cavity, Open Approach (ICD-10-PCS; 2016-12-15)
PROC: 4A103BD Monitoring of Intracranial Pressure, Percutaneous Approach (ICD-10-PCS; 2016-12-15)
PROC: 0BH17EZ Insertion of Endotracheal Airway into Trachea, Via Natural or Artificial Opening (ICD-10-PCS; 2016-12-15)
PROC: 5A1955Z Respiratory Ventilation, Greater than 96 Consecutive Hours (ICD-10-PCS; 2016-12-15)
PROC: 30233L1 Transfusion of Nonautologous Fresh Plasma into Peripheral Vein, Percutaneous Approach (ICD-10-PCS; 2016-12-15)
PROC: 30233N1 Transfusion of Nonautologous Red Blood Cells into Peripheral Vein, Percutaneous Approach (ICD-10-PCS; 2016-12-15)
PROC: 05H533Z Insertion of Infusion Device into Right Subclavian Vein, Percutaneous Approach (ICD-10-PCS; 2016-12-15)
PROC: 00C40ZZ Extirpation of Matter from Intracranial Subdural Space, Open Approach (ICD-10-PCS; principal; 2016-12-15 08:40)
PROC: 04HY32Z Insertion of Monitoring Device into Lower Artery, Percutaneous Approach (ICD-10-PCS; 2016-12-17)
PROC: 0B113F4 Bypass Trachea to Cutaneous with Tracheostomy Device, Percutaneous Approach (ICD-10-PCS; 2016-12-24)
PROC: 5A1955Z Respiratory Ventilation, Greater than 96 Consecutive Hours (ICD-10-PCS; 2016-12-24)
PROC: 0BJ08ZZ Inspection of Tracheobronchial Tree, Via Natural or Artificial Opening Endoscopic (ICD-10-PCS; 2016-12-24)
PROC: 0BCB8ZZ Extirpation of Matter from Left Lower Lobe Bronchus, Via Natural or Artificial Opening Endoscopic (ICD-10-PCS; 2016-12-24)
PROC: 0BC68ZZ Extirpation of Matter from Right Lower Lobe Bronchus, Via Natural or Artificial Opening Endoscopic (ICD-10-PCS; 2016-12-24)
PROC: 03HY32Z Insertion of Monitoring Device into Upper Artery, Percutaneous Approach (ICD-10-PCS; 2016-12-24)
PROC: 0W9930Z Drainage of Right Pleural Cavity with Drainage Device, Percutaneous Approach (ICD-10-PCS; 2016-12-24)
PROC: B3181ZZ Fluoroscopy of Bilateral Internal Carotid Arteries using Low Osmolar Contrast (ICD-10-PCS; 2016-12-28)
PROC: B31F1ZZ Fluoroscopy of Left Vertebral Artery using Low Osmolar Contrast (ICD-10-PCS; 2016-12-28)
PROC: 0DH63UZ Insertion of Feeding Device into Stomach, Percutaneous Approach (ICD-10-PCS; 2016-12-29)
DX: S06.5X9A Traumatic subdural hemorrhage with loss of consciousness of unspecified duration, initial encounter (principal); T79.4XXA Traumatic shock, initial encounter; A41.9 Sepsis, unspecified organism; J95.851 Ventilator associated pneumonia; S36.113A Laceration of liver, unspecified degree, initial encounter; S36.892A Contusion of other intra-abdominal organs, initial encounter; J80 Acute respiratory distress syndrome; S32.591A Other specified fracture of right pubis, initial encounter for closed fracture; J96.01 Acute respiratory failure with hypoxia; S32.029A Unspecified fracture of second lumbar vertebra, initial encounter for closed fracture; R56.1 Post traumatic seizures; S32.039A Unspecified fracture of third lumbar vertebra, initial encounter for closed fracture; S32.049A Unspecified fracture of fourth lumbar vertebra, initial encounter for closed fracture; S22.41XA Multiple fractures of ribs, right side, initial encounter for closed fracture; S32.592A Other specified fracture of left pubis, initial encounter for closed fracture; I67.848 Other cerebrovascular vasospasm and vasoconstriction; E22.2 Syndrome of inappropriate secretion of antidiuretic hormone; J93.9 Pneumothorax, unspecified; T83.511A Infection and inflammatory reaction due to indwelling urethral catheter, initial encounter; N39.0 Urinary tract infection, site not specified; S06.1X9A Traumatic cerebral edema with loss of consciousness of unspecified duration, initial encounter; R40.2431 Glasgow coma scale score 3-8, in the field [EMT or ambulance]; B96.89 Other specified bacterial agents as the cause of diseases classified elsewhere; B95.61 Methicillin susceptible Staphylococcus aureus infection as the cause of diseases classified elsewhere; D64.9 Anemia, unspecified; E87.6 Hypokalemia; B95.2 Enterococcus as the cause of diseases classified elsewhere; Y84.6 Urinary catheterization as the cause of abnormal reaction of the patient, or of later complication, without mention of misadventure at the time of the procedure; K29.70 Gastritis, unspecified, without bleeding; R13.10 Dysphagia, unspecified; V43.52XA Car driver injured in collision with other type car in traffic accident, initial encounter; Y92.410 Unspecified street and highway as the place of occurrence of the external cause
CPT/HCPCS: 31500; 31600; 31624; 32551; 36216; 36217; 36430; 36556; 61650; 61651; 70450; 70486; 70496; 70498; 70551; 71010; 71260; 72125; 72128; 72131; 72170; 74000; 74177; 76705; 76937; 80048; 80053; 80164; 80177; 80184; 80185; 80202; 80307; 80320; 81001; 82435; 82436; 82533; 82565; 82805; 82945; 82947; 82948; 83735; 83921; 83930; 83935; 84100; 84132; 84133; 84155; 84157; 84295; 84300; 84443; 84520; 84550; 84702; 85007; 85014; 85018; 85025; 85027; 85384; 85610; 85730; 86403; 86850; 86900; 86901; 86920; 86927; 87015; 87040; 87070; 87077; 87086; 87102; 87116; 87147; 87186; 87205; 87206; 87641; 89051; 90471; 90715; 93005; 93306; 93886; 93970; 94002; 94003; 94664; 94770; 95819; 96374; 96375; 99291; C1769; C1887; C1894; C9113; G0390; J0131; J0171; J0461; J0610; J0690; J0692; J1120; J1250; J1580; J1650; J1815; J1940; J1953; J1956; J2020; J2150; J2175; J2248; J2250; J2270; J2370; J2405; J2560; J2930; J3010; J3370; J3475; J3480; J7030; J7040; J7050; J7060; J7120; J7613; P9016; P9017; P9045; Q2009; Q9967

== ENCOUNTER 2017-02-16 15:53 | Inpatient (IN) | payer OTHER ==
[~2017-02-16] VITALS: Ht 152.4 cm; Wt 53.5 kg
[~2017-02-16 15:53] MED LIST: BISA10R RECTAL; BROM2.5 PO; CHIL100S14 PO; ENOX40P SQ; FAMO1TAB37 PO; HYOS0.129 PO; LACT10SO PO; LEVE500 PO; MIDO5TAB PO; MILKSUS PO; OXYC1CON3 PO; PANT40P PO; SENN1TAB PO; VALP250C PO; [UNRECOGNIZED DRUG - CODE] IV
[2017-02-16 20:10] VITALS: O2SAT 98
[2017-02-16 20:30] VITALS: PULSE 96
[2017-02-16 21:00] VITALS: BP 120/75; PULSE 105; RESP 13; TEMP 99.2; O2SAT 98
[2017-02-16 22:00] VITALS: PULSE 99
[2017-02-17] VITALS (17 sets, daily range): BP systolic 76–139; BP diastolic 37–83; PULSE 92–122; RESP 7–22; TEMP 98.4–99.3; O2SAT 94–100
[2017-02-17] MEDS ORDERED: NALOXONE HCL 0.4 MG/ML AMP IV PRN (00:30)
[2017-02-17] MEDS ORDERED: SODIUM CHLORIDE 0.9% FLUSH 10 ML FLUSH IV FLUSH PRN (00:30)
[2017-02-17] MEDS ORDERED: BISACODYL 10 MG SUPP PR PRN (00:30)
[2017-02-17] MEDS ORDERED: MAGNESIUM HYDROXIDE SUSP 30 ML CUP PO PRN (00:30)
[2017-02-17] MEDS ORDERED: ONDANSETRON HCL 4 MG/2 ML VIAL IVP PRN (00:30)
[2017-02-17] MEDS ORDERED: POLY99.0 EACH EYE (01:12)
[2017-02-17] MEDS ORDERED: CHLO.12%30 SWISH-SPIT (01:26)
[2017-02-17] MEDS ORDERED: MIDO10TA PO (01:26)
[2017-02-17] MEDS ORDERED: PROP10TA6 PO (01:26)
[2017-02-17] MEDS ORDERED: MILKSUS PO (01:26)
[2017-02-17] MEDS ORDERED: HEPA5000 (01:26)
[2017-02-17] MEDS ORDERED: VANC1000P IV (02:52)
[2017-02-17] MEDS ORDERED: CHLORHEXIDINE GLUCONATE 2 % 1 PACK (2 CLOTHS)(extra cloths) TOPICAL PRN (04:15)
[2017-02-17 05:44] LABS: AUTOMATED NEUTROPHIL # 5.5 TH/MM3 (1.8-7.7); BASOPHIL # 0.1 TH/MM3 (0-0.2); BASOPHIL % 1.1 % (0.0-2.0); EOSINOPHIL # 0.5 TH/MM3 (0-0.4); EOSINOPHIL % 5.1 % (0.0-4.0); HEMATOCRIT 33.6 % (35.0-46.0); LYMPH % 17.3 % (9.0-44.0); LYMPHOCYTE # 1.6 TH/MM3 (1.0-4.8); MEAN CELL VOLUME 84.9 FL (80.0-100.0); MEAN CORPUSCULAR HEMOGLOBIN 29.3 PG (27.0-34.0); MEAN CORPUSCULAR HGB CONC 34.5 % (32.0-36.0); MONO % 15.7 % (0.0-8.0); NEUT % 60.8 % (16.0-70.0); PLATELET COUNT 406 TH/MM3 (150-450); RED BLOOD COUNT 3.96 MIL/MM3 (4.00-5.30); RED CELL DISTRIBUTION WIDTH 15.4 % (11.6-17.2)
[2017-02-17 06:01] LABS: BICARBONATE 29.8 MEQ/L (21.0-32.0); POTASSIUM 3.8 MEQ/L (3.5-5.1)
[2017-02-17 06:09] LABS: HEMO FLAGS AUTO DIFF
[2017-02-17 07:53] LABS: BANDS 23 % (0-6); BASOPHILS 1 % (0-2); EOSINOPHILS 1 % (0-4); METAMYELOCYTES 1 % (0-1); MYELOCYTES 1 % (0-0); NEUTROPHIL # MANUAL DIFF 5.7 TH/MM3 (1.8-7.7); PLATELET ESTIMATE SMEAR NORMAL (NORMAL); PLATELET MORPHOLOGY NORMAL (NORMAL); POLYS (SEG NEUTROPHILS) 38 % (16-70); SCAN/DIFF FINAL DIFF MANUAL; WBC DIFF SAMPLE 100
[2017-02-17] MEDS: SODIUM CHLORIDE 0.9% FLUSH 10 ML FLUSH IV FLUSH SCH ×2 (09:00→21:00)
[2017-02-17] MEDS: RESP: ALBUTEROL 2.5 MG/IPRATROPIUM 0.5 MG NEB (PRN) NEB ×2 (10:06→17:05)
[2017-02-17] MEDS ORDERED: oxyCODONE HCL ORAL CONC 20 MG/ML SYRINGE PO PRN (11:15)
[2017-02-17] MEDS ORDERED: HYOSCYAMINE 0.125 MG TAB PO PRN (11:15)
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
[2017-02-17] MEDS ORDERED: Vancomycin Consult Pharmacy 1 EA OTHER SCH (11:30)
[2017-02-17] MEDS ORDERED: VANCOMYCIN INJ 1,500 MG in SODIUM CHLORID 0.9% 500 ML INJ 500 ML IV SCH (11:30)
[2017-02-17] MEDS: PANTOPRAZOLE SODIUM 40 MG VIAL IV PUSH SCH (12:50)
[2017-02-17] MEDS: MIDODRINE 5 MG TAB PO SCH ×2 (12:50→18:00)
[2017-02-17] MEDS: levETIRAcetam 500 MG TAB PO SCH ×2 (12:51→22:05)
[2017-02-17 13:48] LABS: PHENOBARBITAL 21.6 MCG/ML (15.0-40.0)
[2017-02-17] MEDS ORDERED: PROPRANOLOL HCL 10 MG TAB PO SCH (14:00)
--- NOTE | 2017-02-17 14:10 | RADRPT ---
EXAM DATE/TIME: 02/17/2017 13:22 [place] COMPARISON: CHEST SINGLE AP, January 10, 2017, 4:39. INDICATIONS : Short of breath. Infiltrate per order. MEDICAL HISTORY : None. SURGICAL HISTORY : ENCOUNTER: Initial ACUITY: 1 day PAIN SCORE: Non-responsive. LOCATION: Bilateral chest FINDINGS: Single AP view of the chest. Tracheostomy tube remains in place. Left subclavian central venous odilia ter no longer seen. The lungs are clear. Cardiomediastinal silhouette within normal limits. No evide nce of pleural effusion or pneumothorax. CONCLUSION: No acute cardiopulmonary disease identified. Earl Garces MD on February 17, 2017 at 14:08 Board Certified Radiologist. This report was verified electronically.
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
[2017-02-17] MEDS: VANCOMYCIN INJ 750 MG in SODIUM CHLOR 0.9% 250 ML INJ 250 ML IV SCH ×2 (15:57→22:04)
[2017-02-17] MEDS: SODIUM CHLOR 0.9% 1000 ML INJ 1,000 ML IV SCH ×2 (15:58→22:04)
[2017-02-17] MEDS: BROMOCRIPTINE MESYLATE 2.5 MG TAB PO SCH (21:00)
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
[2017-02-17] MEDS: PROPRANOLOL HCL 10 MG TAB PO SCH (22:00)
[2017-02-17] MEDS: FAMOTIDINE 20 MG TAB PO SCH (22:05)
[2017-02-17] MEDS: DOCUSATE SODIUM 50 MG/SENNA 8.6 MG TAB PO SCH (22:05)
[2017-02-17] MEDS: ENOXAPARIN SODIUM 40 MG/0.4 ML SYRINGE SQ SCH (22:05)
[2017-02-18] VITALS (26 sets, daily range): BP systolic 77–128; BP diastolic 37–88; PULSE 84–109; RESP 11–34; TEMP 98.1–99.3; O2SAT 97–100
[2017-02-18] MEDS: CHLORHEXIDINE GLUCONATE 2 % 1 PACK (2 CLOTHS)(taper/protocol) TOPICAL SCH (04:00)
[2017-02-18] MEDS: VANCOMYCIN INJ 750 MG in SODIUM CHLOR 0.9% 250 ML INJ 250 ML IV SCH ×3 (04:46→21:16)
[2017-02-18 05:18] LABS: AUTOMATED NEUTROPHIL # 4.4 TH/MM3 (1.8-7.7); BASOPHIL % 0.3 % (0.0-2.0); EOSINOPHIL # 0.5 TH/MM3 (0-0.4); EOSINOPHIL % 6.5 % (0.0-4.0); HEMATOCRIT 32.3 % (35.0-46.0); HEMO FLAGS DIFF FINAL; LYMPH % 18.5 % (9.0-44.0); LYMPHOCYTE # 1.3 TH/MM3 (1.0-4.8); MEAN CELL VOLUME 88.7 FL (80.0-100.0); MEAN CORPUSCULAR HEMOGLOBIN 29.3 PG (27.0-34.0); MEAN CORPUSCULAR HGB CONC 33.1 % (32.0-36.0); MONO % 12.1 % (0.0-8.0); NEUT % 62.6 % (16.0-70.0); PLATELET COUNT 319 TH/MM3 (150-450); RED BLOOD COUNT 3.64 MIL/MM3 (4.00-5.30); RED CELL DISTRIBUTION WIDTH 14.1 % (11.6-17.2)
[2017-02-18 05:33] LABS: BICARBONATE 26.1 MEQ/L (21.0-32.0)
[2017-02-18] MEDS: PROPRANOLOL HCL 10 MG TAB PO SCH ×3 (06:00→21:16)
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
[2017-02-18] MEDS: BROMOCRIPTINE MESYLATE 2.5 MG TAB PO SCH ×2 (09:00→21:16)
[2017-02-18] MEDS: SODIUM CHLORIDE 0.9% FLUSH 10 ML FLUSH IV FLUSH SCH ×2 (09:00→21:00)
[2017-02-18] MEDS ORDERED: LACTULOSE SYRUP 20 GM/30 ML CUP PO SCH (09:00)
[2017-02-18] MEDS: BISACODYL 10 MG SUPP RECTAL SCH (09:05)
[2017-02-18] MEDS: levETIRAcetam 500 MG TAB PO SCH ×2 (09:05→21:16)
[2017-02-18] MEDS: DOCUSATE SODIUM 50 MG/SENNA 8.6 MG TAB PO SCH ×2 (09:05→21:00)
[2017-02-18] MEDS: MIDODRINE 5 MG TAB PO SCH ×3 (09:05→18:24)
[2017-02-18] MEDS: SODIUM CHLOR 0.9% 1000 ML INJ 1,000 ML IV SCH (12:11)
[2017-02-18] MEDS: PANTOPRAZOLE SODIUM 40 MG VIAL IV PUSH SCH (12:11)
[2017-02-18] MEDS ORDERED: PHARMACY ORDERED LAB XX ONE (12:45)
[2017-02-18] MEDS: FAMOTIDINE 20 MG TAB PO SCH (21:16)
[2017-02-18] MEDS: ENOXAPARIN SODIUM 40 MG/0.4 ML SYRINGE SQ SCH (21:16)
[2017-02-19] VITALS (18 sets, daily range): BP systolic 81–142; BP diastolic 43–96; PULSE 90–106; RESP 12–20; TEMP 97.3–99.5; O2SAT 96–100
[2017-02-19] MEDS: SODIUM CHLOR 0.9% 1000 ML INJ 1,000 ML IV SCH (00:01)
[2017-02-19] MEDS: VANCOMYCIN INJ 750 MG in SODIUM CHLOR 0.9% 250 ML INJ 250 ML IV SCH ×3 (04:22→21:37)
[2017-02-19] MEDS: CHLORHEXIDINE GLUCONATE 2 % 1 PACK (2 CLOTHS)(taper/protocol) TOPICAL SCH (04:22)
[2017-02-19] MEDS: PROPRANOLOL HCL 10 MG TAB PO SCH ×2 (05:51→14:00)
[2017-02-19] MEDS ORDERED: LACTULOSE SYRUP 20 GM/30 ML CUP PO PRN (07:30)
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
[2017-02-19] MEDS: SODIUM CHLORIDE 0.9% FLUSH 10 ML FLUSH IV FLUSH SCH ×2 (09:17→20:32)
[2017-02-19] MEDS: DOCUSATE SODIUM 50 MG/SENNA 8.6 MG TAB PO SCH ×2 (09:17→20:32)
[2017-02-19] MEDS: levETIRAcetam 500 MG TAB PO SCH ×2 (09:18→20:32)
[2017-02-19] MEDS: BROMOCRIPTINE MESYLATE 2.5 MG TAB PO SCH ×2 (09:18→20:32)
[2017-02-19] MEDS: MIDODRINE 5 MG TAB PO SCH ×3 (09:18→18:37)
[2017-02-19] MEDS: LANSOPRAZOLE SOLUTAB 30 MG TAB NG SCH (09:18)
[2017-02-19] MEDS: BISACODYL 10 MG SUPP RECTAL SCH (09:18)
--- NOTE | 2017-02-19 19:59 | HHI.PR ---
Subjective Remarks Awake and moves right arm .On a T bar at 25 %. On IV Vancomycin. No fever . Chest X ray was clear Objective Vital Signs Date Time Temp Pulse Resp B/P Pulse Ox O2 Delivery O2 Flow Rate FiO2 02/19/17 16:00 97.6 96 18 110/80 97 02/19/17 12:00 97.3 101 18 121/93 97 02/19/17 08:26 99 T-piece 28 02/19/17 08:01 98.9 100 15 102/47 98 02/19/17 08:00 105 02/19/17 08:00 96 T-Piece 28 Humidified 02/19/17 07:01 104 16 122/77 99 02/19/17 06:01 102 16 118/71 99 02/19/17 06:00 103 02/19/17 05:01 90 12 81/43 100 02/19/17 05:01 90 12 81/43 100 02/19/17 04:01 98.7 106 13 127/75 100 02/19/17 04:01 106 13 127/75 100 02/19/17 04:00 103 02/19/17 03:00 96 13 85/53 99 02/19/17 03:00 96 13 85/53 99 02/19/17 02:00 98 02/19/17 02:00 106 18 117/63 99 02/19/17 01:00 102 15 113/66 100 02/19/17 00:00 93 02/19/17 00:00 98.8 96 14 110/67 97 02/18/17 23:52 94 14 98/72 100 02/18/17 22:00 87 02/18/17 22:00 98 24 113/84 98 02/18/17 21:00 88 11 97/48 99 02/18/17 20:00 96 16 128/88 100 02/18/17 20:00 100 02/18/17 20:00 99 T-Piece 02/18/17 20:00 96 16 128/88 100 I/O 02/18/17 02/18/17 02/18/17 02/19/17 02/19/17 02/19/17 07:00 15:00 23:00 07:00 15:00 23:00 Intake Total 1620 ml 608 ml 2395 ml 1141 ml 180 ml 650 ml Balance 1620 ml 608 ml 2395 ml 1141 ml 180 ml 650 ml Intake Oral 0 ml 0 ml IV Total 1270 ml 508 ml 1900 ml 491 ml Tube Feeding 200 ml 295 ml 450 ml 250 ml Other 150 ml 100 ml 200 ml 200 ml 180 ml 400 ml # Voids 4 2 2 3 2 # Bowel Movements 1 2 1 1 Result Diagram: 02/18/17 0501 02/18/17 0501 Objective Remarks PHYSICAL EXAMINATION GENERAL: Averagely built young white female with no acute distress. She was lying flat. She has trach tube in place with a T-bar. HEENT: Head normocephalic. Pupils are reactive. Throat clear. NECK: Supple. No bruits, no venous distension. Trach site was clean CHEST: Equal movements with clear lung lawson. CARDIAC: Heart sounds are regular. No murmur. ABDOMEN: Soft and nontender. Bowel sounds are active. EXTREMITIES: Weakness of the lower limbs. She is somewhat lethargic, but responds. SKIN: Dry and cool. Assessment and Plan Assessment and Plan IMPRESSION 1. Respiratory failure with a history of MRSA pneumonia 2. Status post craniotomy for a subdural hematoma and traumatic brain injury 3. Right rib fractures with history of pneumothorax, resolved 4. Tachycardia Plan : 1. T bar at 25 %. 2. Suction and lavage trach q3h. 3. Nebs qid , albuterol prn. 4. Cont IV Vanco for 5 days. 5. Levsin .125 mg tid prn. 6. Tube feeds as ordered. 7. CBC,BMP on Thursday Michela Mohr MD Feb 19, 2017 19:59
[2017-02-19] MEDS: ENOXAPARIN SODIUM 40 MG/0.4 ML SYRINGE SQ SCH (20:31)
[2017-02-19] MEDS: PROPRANOLOL HCL 20 MG TAB PO SCH (20:32)
[2017-02-19] MEDS: FAMOTIDINE 20 MG TAB PO SCH (20:32)
[2017-02-20] VITALS (9 sets, daily range): BP systolic 110–131; BP diastolic 70–91; PULSE 75–104; RESP 16–20; TEMP 98.7–100; O2SAT 95–100
[2017-02-20] MEDS: CHLORHEXIDINE GLUCONATE 2 % 1 PACK (2 CLOTHS)(taper/protocol) TOPICAL SCH (04:00)
[2017-02-20] MEDS: PROPRANOLOL HCL 20 MG TAB PO SCH ×3 (06:28→22:00)
[2017-02-20] MEDS: BROMOCRIPTINE MESYLATE 2.5 MG TAB PO SCH ×2 (09:00→20:41)
[2017-02-20] MEDS: DOCUSATE SODIUM 50 MG/SENNA 8.6 MG TAB PO SCH ×2 (09:00→20:41)
[2017-02-20] MEDS: SODIUM CHLORIDE 0.9% FLUSH 10 ML FLUSH IV FLUSH SCH ×2 (09:00→20:42)
[2017-02-20] MEDS: IBUPROFEN SUSP 100 MG/5 ML UDC PO PRN (11:10)
[2017-02-20] MEDS: LANSOPRAZOLE SOLUTAB 30 MG TAB NG SCH (11:11)
[2017-02-20] MEDS: RESP: ALBUTEROL 2.5 MG/IPRATROPIUM 0.5 MG NEB (PRN) NEB (11:11)
[2017-02-20] MEDS: BISACODYL 10 MG SUPP RECTAL SCH (11:11)
[2017-02-20] MEDS: MIDODRINE 5 MG TAB PO SCH ×3 (11:11→18:26)
[2017-02-20] MEDS: levETIRAcetam 500 MG TAB PO SCH ×2 (11:11→20:39)
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
--- NOTE | 2017-02-20 15:54 | HHI.PR ---
Subjective Remarks Patient seen and examined with Dr. Hair. Patient is noncommunicative. Information taken from at bedside. He indicates that patient was at [facility]. indicates that the patient was down to having her tracheostomy capped. However, the patient developed pneumonia and was transferred back to [place] for continued management. Is also indicated that Dr. Gibson, neurosurgery was planning on doing bone flap surgery. Patient has undergone CT scan in preparation for that at this time. There is no evidence of any acute intracranial pathology. No masses were identified. We 'll need to contact Dr. Gibson, to see when he plans on doing surgery so we can facilitate transfer back to [facility] for surgical intervention. In the present time will continue patient on T piece oxygenation. Do not want to pursue weaning of tracheostomy at this time since patient will require ventilation for surgery and likely be in the [facility] for prolonged period until she has recovered from surgery. Objective Vitals Vital Signs Date Time Temp Pulse Resp B/P Pulse Ox O2 Delivery O2 Flow Rate FiO2 02/20/17 13:21 T-Piece 6.00 28 Humidified 02/20/17 13:19 75 02/20/17 12:16 18 02/20/17 12:00 99.0 90 18 110/70 95 02/20/17 08:00 100.0 97 18 113/73 97 02/20/17 07:45 99 T-piece 28 02/20/17 04:00 99.9 104 20 127/89 100 02/20/17 00:00 99.0 95 20 119/79 100 02/19/17 20:23 96 T-piece 6.00 28 02/19/17 20:08 101 02/19/17 20:00 99.5 101 20 142/96 100 02/19/17 20:00 100 T-Piece 28 Humidified 02/19/17 16:00 97.6 96 18 110/80 97 I/O 02/19/17 02/19/17 02/19/17 02/20/17 02/20/17 02/20/17 07:00 15:00 23:00 07:00 15:00 23:00 Intake Total 1141 ml 180 ml 650 ml 3403 ml Balance 1141 ml 180 ml 650 ml 3403 ml Intake Oral 0 ml 0 ml 0 ml IV Total 491 ml 1666 ml Tube Feeding 450 ml 250 ml 1317 ml Tube Irrigant 420 ml Other 200 ml 180 ml 400 ml # Voids 3 2 2 3 # Bowel Movements 1 0 1 Result Diagram: 02/18/17 0501 02/18/17 0501 Objective Remarks GENERAL: Well-developed, well-nourished, patient is responsive to pain only. HEENT: Patient has obvious intention on the left side of the skull from bone resection from traumatic brain injury. Extraocular muscles are intact. Conjunctivae were clear. NECK: Supple without any masses. Trachea midline no deviation. Tracheostomy noted without any signs of infection CARDIAC: Regular rhythm, regular rate. S1/S2 are heard. No murmurs gallops or rubs. LUNGS: Clear to auscultation bilaterally. No wheeze, rhonchi or rales. No use of accessory muscles on inspiration or expiration. ABDOMEN: Soft, nontender. Nondistended. Bowel sounds heard in all 4 quadrants. No organomegaly or masses. Negative rebound, negative guarding. PEG tube noted without any signs of infection EXTREMITIES: No edema, pulses are equal bilaterally. No cyanosis or clubbing NEUROLOGY: Patient does have good movement of her right upper extremity. However left upper extremity appears to start developing contractures. Does intermittently move lower extremities. Urinary Catheter: Yes Assessment to: Continue Vascular Central Line Catheter: Yes Assessment to: Continue Side: Left A/P Assessment and Plan Chronic respiratory failure. Patient is tolerating T piece at 28% oxygen with good O2 saturations. We'll not pursue weaning at this time, until speaking with neurosurgery in for surgical intervention. If surgery is going to happen then patient will require tracheostomy for ventilation. Aggressive pulmonary toilet. Pulmonology following the patient. Levsin for secretions Traumatic brain injury.: Patient does have postsurgical changes. It was indicated that Neurosurgery Dr. Gibson, plans on performing bone flap surgery. CT scan was done today in preparation. We'll need to contact neurosurgeon to find out when he plans on doing surgery so we can transfer patient back to [facility]; he will be out of town until next week. Patient continued on seizure prevention with phenobarbital, Keppra. Neuropsychiatrist evaluated the patient Multiple pelvic fractures. Transverse process fractures, lumbar region: Continue physical therapy, occupational therapy, speech therapy Sinus tachycardia: Improved with use of Inderal 10 mg 3 times daily Low blood pressure: Likely secondary to brain injury. Patient remains on midodrine Records indicate MRSA pneumonia: Patient completed vancomycin on 02/18. Patient remains afebrile, no leukocytosis to indicate active infection. GI protection with Prevacid DVT prevention: Subcutaneous heparin Written by Tex Lindsey PA-C, acting as scribe for Dr. Hair on 02/20/17 at 1545. The documentation accurately reflects the work and decisions performed face-to- face by Dr. Hair on 02/20/17 at 1545. All or portions of this note were transcribed by scribe Tex Lindsey. I, Dr. Amita Hair personally performed the history, physical exam, and medical decision making; and confirmed the accuracy of the information in the transcribed note. Tex Lindsey Feb 20, 2017 15:54 Amita Hair MD Feb 20, 2017 18:06
--- NOTE | 2017-02-20 19:48 | HHI.PR ---
Subjective Remarks Awake and moves right arm , Has eye twitching.On a T bar at 24 %. Off Antibiotics ,No fever . Chest X ray was clear. CT head was done with no acute pathology. Objective Vital Signs Date Time Temp Pulse Resp B/P Pulse Ox O2 Delivery O2 Flow Rate FiO2 02/20/17 16:00 98.7 90 18 131/90 96 02/20/17 13:21 T-Piece 6.00 28 Humidified 02/20/17 13:19 75 02/20/17 12:16 18 02/20/17 12:00 99.0 90 18 110/70 95 02/20/17 08:00 100.0 97 18 113/73 97 02/20/17 07:45 99 T-piece 28 02/20/17 04:00 99.9 104 20 127/89 100 02/20/17 00:00 99.0 95 20 119/79 100 02/19/17 20:23 96 T-piece 6.00 28 02/19/17 20:08 101 02/19/17 20:00 99.5 101 20 142/96 100 02/19/17 20:00 100 T-Piece 28 Humidified I/O 02/19/17 02/19/17 02/19/17 02/20/17 02/20/17 02/20/17 07:00 15:00 23:00 07:00 15:00 23:00 Intake Total 1141 ml 180 ml 650 ml 3403 ml 1050 ml Output Total 1 ml Balance 1141 ml 180 ml 650 ml 3403 ml 1049 ml Intake Oral 0 ml 0 ml 0 ml IV Total 491 ml 1666 ml Tube Feeding 450 ml 250 ml 1317 ml 550 ml Tube Irrigant 420 ml Other 200 ml 180 ml 400 ml 500 ml Output Stool Total 1 ml # Voids 3 2 2 3 3 # Bowel Movements 1 0 1 Result Diagram: 02/18/17 0501 02/18/17 0501 Objective Remarks PHYSICAL EXAMINATION GENERAL: Averagely built young white female with no acute distress. She was lying flat. She has trach tube in place with a T-bar. HEENT: Head normocephalic. Pupils are reactive. Throat clear. NECK: Supple. No bruits, no venous distension. Trach site was clean CHEST: Equal movements with clear lung lawson. CARDIAC: Heart sounds are regular. No murmur. ABDOMEN: Soft and nontender. Bowel sounds are active. EXTREMITIES: Weakness of the lower limbs. Contractures of limbs.She is somewhat lethargic, but responds. SKIN: Dry and cool. Assessment and Plan Assessment and Plan IMPRESSION 1. Respiratory failure with a history of MRSA pneumonia 2. Status post craniotomy for a subdural hematoma and traumatic brain injury 3. Right rib fractures with history of pneumothorax, resolved 4. Tachycardia Plan : 1. T bar at 25 %. 2. Suction and lavage trach q3h. 3. Nebs qid , albuterol prn. 4. D/C Vanco 5. Levsin .125 mg tid prn. 6. Tube feeds as ordered. 7. CBC,BMP Thursday Michela Mohr MD Feb 20, 2017 19:48
[2017-02-20] MEDS: FAMOTIDINE 20 MG TAB PO SCH (20:41)
[2017-02-21] VITALS: BP 146/89; PULSE 104; RESP 18; TEMP 98.8; O2SAT 100
[2017-02-21 04:00] VITALS: BP 131/77; PULSE 93; PULSE 96; RESP 16; TEMP 98.9; O2SAT 100
[2017-02-21] MEDS: CHLORHEXIDINE GLUCONATE 2 % 1 PACK (2 CLOTHS)(taper/protocol) TOPICAL SCH (04:00)
[2017-02-21] MEDS: ENOXAPARIN SODIUM 40 MG/0.4 ML SYRINGE SQ SCH ×2 (04:27→23:50)
[2017-02-21] MEDS: PROPRANOLOL HCL 20 MG TAB PO SCH ×3 (06:00→22:00)
[2017-02-21 08:00] VITALS: BP 118/86; PULSE 108; PULSE 97; RESP 19; TEMP 98; O2SAT 100; O2SAT 99
[2017-02-21] MEDS: SODIUM CHLORIDE 0.9% FLUSH 10 ML FLUSH IV FLUSH SCH ×2 (09:00→21:00)
[2017-02-21] MEDS: LANSOPRAZOLE SOLUTAB 30 MG TAB NG SCH (09:00)
[2017-02-21] MEDS: BISACODYL 10 MG SUPP RECTAL SCH (09:50)
[2017-02-21] MEDS: MIDODRINE 5 MG TAB PO SCH ×3 (09:50→18:00)
[2017-02-21] MEDS: BROMOCRIPTINE MESYLATE 2.5 MG TAB PO SCH ×2 (09:50→21:00)
[2017-02-21] MEDS: DOCUSATE SODIUM 50 MG/SENNA 8.6 MG TAB PO SCH ×2 (09:50→23:48)
[2017-02-21] MEDS: levETIRAcetam 500 MG TAB PO SCH ×2 (09:50→23:48)
[2017-02-21 12:00] VITALS: BP 121/85; PULSE 96; RESP 18; TEMP 98.1; O2SAT 99
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
[2017-02-21 16:00] VITALS: BP 121/85; PULSE 96; RESP 18; TEMP 98.1; O2SAT 99
[2017-02-21 20:00] VITALS: BP 112/75; PULSE 104; PULSE 106; RESP 20; TEMP 100.8; O2SAT 98; O2SAT 99
[2017-02-21] MEDS: FAMOTIDINE 20 MG TAB PO SCH (23:48)
[2017-02-22] VITALS (8 sets, daily range): BP systolic 94–121; BP diastolic 63–79; PULSE 83–118; RESP 16–20; TEMP 97.2–99.8; O2SAT 96–100
[2017-02-22] MEDS: CHLORHEXIDINE GLUCONATE 2 % 1 PACK (2 CLOTHS)(taper/protocol) TOPICAL SCH (04:00)
[2017-02-22] MEDS: PROPRANOLOL HCL 20 MG TAB PO SCH ×3 (06:55→23:30)
--- NOTE | 2017-02-22 07:41 | RADHPO ---
EXAM DATE/TIME: 02/22/2017 07:30 [place] COMPARISON: CHEST SINGLE AP, February 17, 2017, 13:22. INDICATIONS : Fever, respiratory failure MEDICAL HISTORY : None. SURGICAL HISTORY : None. ENCOUNTER: Subsequent ACUITY: 2 months PAIN SCORE: Non-responsive. LOCATION: Bilateral chest FINDINGS: A single view of the chest demonstrates the lungs to be symmetrically aerated without evidence of mas s, infiltrate or effusion. Trach tube is in good position. The cardiomediastinal contours are unrema rkable. Osseous structures are intact. CONCLUSION: No acute disease. John Dean MD FACR on February 22, 2017 at 7:39 Board Certified Radiologist. This report was verified electronically.
[2017-02-22] MEDS: SODIUM CHLORIDE 0.9% FLUSH 10 ML FLUSH IV FLUSH SCH ×2 (09:00→20:39)
[2017-02-22 09:21] LABS: AUTOMATED NEUTROPHIL # 9.8 TH/MM3 (1.8-7.7); BASOPHIL % 0.3 % (0.0-2.0); EOSINOPHIL # 0.4 TH/MM3 (0-0.4); EOSINOPHIL % 3.3 % (0.0-4.0); HEMATOCRIT 34.5 % (35.0-46.0); HEMO FLAGS DIFF FINAL; LYMPH % 11.6 % (9.0-44.0); LYMPHOCYTE # 1.5 TH/MM3 (1.0-4.8); MEAN CELL VOLUME 84.9 FL (80.0-100.0); MEAN CORPUSCULAR HEMOGLOBIN 28.4 PG (27.0-34.0); MEAN CORPUSCULAR HGB CONC 33.5 % (32.0-36.0); MONO % 7.1 % (0.0-8.0); NEUT % 77.7 % (16.0-70.0); PLATELET COUNT 325 TH/MM3 (150-450); RED BLOOD COUNT 4.07 MIL/MM3 (4.00-5.30); RED CELL DISTRIBUTION WIDTH 14.3 % (11.6-17.2); WHITE BLOOD COUNT 12.6 TH/MM3 (4.0-11.0)
[2017-02-22 09:47] LABS: BICARBONATE 27.6 MEQ/L (21.0-32.0)
[2017-02-22 09:55] LABS: POTASSIUM 4.2 MEQ/L (3.5-5.1)
[2017-02-22] MEDS: MIDODRINE 5 MG TAB PO SCH ×3 (10:00→18:40)
[2017-02-22] MEDS: DOCUSATE SODIUM 50 MG/SENNA 8.6 MG TAB PO SCH ×2 (10:00→20:37)
[2017-02-22] MEDS: BISACODYL 10 MG SUPP RECTAL SCH (10:00)
[2017-02-22] MEDS: LANSOPRAZOLE SOLUTAB 30 MG TAB NG SCH (10:00)
[2017-02-22] MEDS: levETIRAcetam 500 MG TAB PO SCH ×2 (10:00→20:37)
[2017-02-22] MEDS: BROMOCRIPTINE MESYLATE 2.5 MG TAB PO SCH ×2 (10:00→20:37)
--- NOTE | 2017-02-22 14:18 | HHI.PR ---
Subjective Remarks Patient having low-grade fevers. Otherwise at her baseline. Discussed with RN and mother at bedside. Objective Vitals Vital Signs Date Time Temp Pulse Resp B/P Pulse Ox O2 Delivery O2 Flow Rate FiO2 02/22/17 12:00 97.2 90 18 94/64 96 02/22/17 08:00 T-Piece 28 Humidified 02/22/17 08:00 99.8 91 16 106/71 99 02/22/17 08:00 89 02/22/17 07:45 99 T-piece 28 02/22/17 04:00 99.8 118 20 108/77 98 02/22/17 00:00 99.3 115 20 97/63 97 02/21/17 20:00 106 02/21/17 20:00 100.8 104 20 112/75 99 02/21/17 20:00 T-Piece 28 Humidified 02/21/17 20:00 98 T-piece 28 02/21/17 16:00 98.1 96 18 121/85 99 I/O 02/21/17 02/21/17 02/21/17 02/22/17 02/22/17 02/22/17 07:00 15:00 23:00 07:00 15:00 23:00 # Voids 3 # Bowel Movements 1 1 Result Diagram: 02/22/17 0900 02/22/17 0900 Objective Remarks GENERAL: Well-nourished, well-developed nonverbal young adult female. SKIN: Warm and dry. HEAD: Wearing helmet. EYES: No scleral icterus. No injection or drainage. NECK: Supple, trachea midline. No JVD or lymphadenopathy. CARDIOVASCULAR: Regular rate and rhythm without murmurs, gallops, or rubs. RESPIRATORY: Breath sounds equal bilaterally. No accessory muscle use. GASTROINTESTINAL: Abdomen soft, non-tender, nondistended. EXTREMITIES: No cyanosis, or edema. NEUROLOGICAL: Awake, alert, spasticity of limbs. Does not follow commands. Side: Left A/P Assessment and Plan Chronic respiratory failure. Patient is tolerating T piece at 28% oxygen with good O2 saturations. Pulmonology following the patient. Levsin for secretions Traumatic brain injury.: Patient does have postsurgical changes. It was indicated that Neurosurgery Dr. Gibson, plans on performing bone flap surgery. CT scan was done today in preparation. We'll need to contact neurosurgeon to find out when he plans on doing surgery so we can transfer patient back to [facility]. Patient continued on seizure prevention with phenobarbital, Keppra. Neuropsychiatrist evaluated the patient. Multiple pelvic fractures. Transverse process fractures, lumbar region: Continue physical therapy, occupational therapy, speech therapy Sinus tachycardia: Improved with use of Inderal 10 mg 3 times daily Low blood pressure: Improved, Likely secondary to brain injury. Patient remains on midodrine Records indicate MRSA pneumonia: Patient completed vancomycin on 02/18. -Low-grade fevers, leukocytosis. Chest x-ray ordered, in no acute findings are reviewed the images myself. Blood culture ordered. Urine is pending. I will start Rocephin 1 g IV every 12 hours. GI protection with Prevacid DVT prevention: Subcutaneous heparin Amita Hair MD Feb 22, 2017 14:18
[2017-02-22 14:50] LABS: BLOOD, URINE NEG (NEG); GLUCOSE,URINE NEG (NEG); KETONE, URINE NEG (NEG); NITRITE,URINE NEG (NEG)
[2017-02-22 14:55] LABS: METHOD OF COLLECTION CATH; URINE COLOR YELLOW (YELLW/STRAW)
[2017-02-22 14:56] LABS: COMMENT (UR) CULT NOT INDICATED; CULTURE IF INDICATED CULT NOT INDICATED; WBC, URINE 0-2 /hpf (0-5)
[2017-02-22] MEDS: cefTRIAXone INJ 1,000 MG in SODIUM CHLORIDE 0.9% INJ 100 ML IV SCH (15:44)
[2017-02-22] MEDS: ENOXAPARIN SODIUM 40 MG/0.4 ML SYRINGE SQ SCH (20:38)
[2017-02-22] MEDS: FAMOTIDINE 20 MG TAB PO SCH (20:38)
[2017-02-23] VITALS (8 sets, daily range): BP systolic 82–123; BP diastolic 46–97; PULSE 77–150; RESP 16–22; TEMP 97–100.3; O2SAT 91–100
[2017-02-23] MEDS: ARTIFICIAL TEARS OPTH SOLN 15 ML BTL EACH EYE SCH ×5 (00:45→18:00)
[2017-02-23] MEDS: cefTRIAXone INJ 1,000 MG in SODIUM CHLORIDE 0.9% INJ 100 ML IV SCH ×2 (03:35→15:12)
[2017-02-23] MEDS: PROPRANOLOL HCL 20 MG TAB PO SCH ×3 (05:42→21:58)
[2017-02-23 07:27] LABS: AUTOMATED NEUTROPHIL # 9.3 TH/MM3 (1.8-7.7); BASOPHIL # 0.1 TH/MM3 (0-0.2); BASOPHIL % 0.5 % (0.0-2.0); EOSINOPHIL # 0.5 TH/MM3 (0-0.4); EOSINOPHIL % 4.5 % (0.0-4.0); HEMATOCRIT 34.1 % (35.0-46.0); HEMO FLAGS DIFF FINAL; LYMPH % 9.4 % (9.0-44.0); LYMPHOCYTE # 1.1 TH/MM3 (1.0-4.8); MEAN CELL VOLUME 86.6 FL (80.0-100.0); MEAN CORPUSCULAR HEMOGLOBIN 28.8 PG (27.0-34.0); MEAN CORPUSCULAR HGB CONC 33.3 % (32.0-36.0); MONO % 7.4 % (0.0-8.0); NEUT % 78.2 % (16.0-70.0); PLATELET COUNT 299 TH/MM3 (150-450); POTASSIUM 4.2 MEQ/L (3.5-5.1); RED BLOOD COUNT 3.93 MIL/MM3 (4.00-5.30); RED CELL DISTRIBUTION WIDTH 14.9 % (11.6-17.2); WHITE BLOOD COUNT 11.9 TH/MM3 (4.0-11.0)
[2017-02-23 07:35] LABS: BICARBONATE 25.8 MEQ/L (21.0-32.0)
[2017-02-23] MEDS: BISACODYL 10 MG SUPP RECTAL SCH (08:35)
[2017-02-23] MEDS: DOCUSATE SODIUM 50 MG/SENNA 8.6 MG TAB PO SCH ×2 (08:35→21:58)
[2017-02-23] MEDS: BROMOCRIPTINE MESYLATE 2.5 MG TAB PO SCH ×2 (08:35→21:58)
[2017-02-23] MEDS: levETIRAcetam 500 MG TAB PO SCH ×2 (08:35→21:58)
[2017-02-23] MEDS: MIDODRINE 5 MG TAB PO SCH ×3 (08:36→18:00)
[2017-02-23] MEDS: LANSOPRAZOLE SOLUTAB 30 MG TAB NG SCH (08:36)
[2017-02-23] MEDS: SODIUM CHLORIDE 0.9% FLUSH 10 ML FLUSH IV FLUSH SCH ×2 (08:36→21:59)
[2017-02-23] MEDS: ENOXAPARIN SODIUM 40 MG/0.4 ML SYRINGE SQ SCH (15:13)
--- NOTE | 2017-02-23 16:51 | HHI.PR ---
Subjective Remarks Low grade fevers. feels she has been less awake. Objective Vitals Vital Signs Date Time Temp Pulse Resp B/P Pulse Ox O2 Delivery O2 Flow Rate FiO2 02/23/17 12:00 98.3 101 22 101/53 98 02/23/17 09:15 96 T-piece 28 02/23/17 08:00 99.8 150 22 93/71 91 02/23/17 04:00 99.1 108 20 96/54 96 02/23/17 00:00 100.3 93 16 115/97 97 02/22/17 21:28 98 T-piece 6.00 28 02/22/17 20:00 97.4 86 18 107/75 100 02/22/17 20:00 90 02/22/17 19:00 100 Trach Collar 28 I/O 02/22/17 02/22/17 02/22/17 02/23/17 02/23/17 02/23/17 07:00 15:00 23:00 07:00 15:00 23:00 Intake Total 628 ml 940 ml 0 ml Balance 628 ml 940 ml 0 ml Intake Oral 0 ml Tube Feeding 428 ml 880 ml Tube Irrigant 200 ml Other 60 ml # Voids 2 1 # Bowel Movements 1 1 0 Result Diagram: 02/23/17 0535 02/23/17 0535 Objective Remarks GENERAL: Well-nourished, well-developed nonverbal young adult female. SKIN: Warm and dry. HEAD: Wearing helmet. EYES: No scleral icterus. No injection or drainage. NECK: Supple, trachea midline. No JVD or lymphadenopathy. CARDIOVASCULAR: Regular rate and rhythm without murmurs, gallops, or rubs. RESPIRATORY: Breath sounds equal bilaterally. No accessory muscle use. GASTROINTESTINAL: Abdomen soft, non-tender, nondistended. EXTREMITIES: No cyanosis, or edema. NEUROLOGICAL: Awake, alert, spasticity of limbs. Does not follow commands. Side: Left A/P Assessment and Plan Chronic respiratory failure. Patient is tolerating T piece at 28% oxygen with good O2 saturations. Pulmonology following the patient. Levsin for secretions Traumatic brain injury.: Patient does have postsurgical changes. It was indicated that Neurosurgery Dr. Gibson, plans on performing bone flap surgery. CT scan was done today in preparation. We'll need to contact neurosurgeon to find out when he plans on doing surgery so we can transfer patient back to [facility]. Patient continued on seizure prevention with phenobarbital, Keppra ( requests we verify keppra - I reviewed note from 02/17 at select it mentioned depakote and phenobarbital). Neuropsychiatrist evaluated the patient. Multiple pelvic fractures. Transverse process fractures, lumbar region: Continue physical therapy, occupational therapy, speech therapy Sinus tachycardia: Improved with use of Inderal 10 mg 3 times daily Low blood pressure: Improved, Likely secondary to brain injury. Patient remains on midodrine Records indicate MRSA pneumonia: Patient completed vancomycin on 02/18. -Low-grade fevers, mild leukocytosis. Chest x-ray 02/22- negative. Blood culture 02/22-no growth at 24 hrs. UA negative. Cont Rocephin 1 g IV every 12 hours empirically, pending BC. GI protection with Prevacid DVT prevention: Subcutaneous heparin Amita Hair MD Feb 23, 2017 16:51
--- NOTE | 2017-02-23 18:32 | HHI.PR ---
Subjective Remarks Awake and moves right arm , Has eye twitching.On a T bar at 28 %.Family states that she tries to talk Off Antibiotics ,No fever . Chest X ray was clear. CT head was done with no acute pathology. Objective Vital Signs Date Time Temp Pulse Resp B/P Pulse Ox O2 Delivery O2 Flow Rate FiO2 02/23/17 16:00 98.4 93 22 115/72 100 02/23/17 12:00 98.3 101 22 101/53 98 02/23/17 09:15 96 T-piece 28 02/23/17 08:00 99.8 150 22 93/71 91 02/23/17 04:00 99.1 108 20 96/54 96 02/23/17 00:00 100.3 93 16 115/97 97 02/22/17 21:28 98 T-piece 6.00 28 02/22/17 20:00 97.4 86 18 107/75 100 02/22/17 20:00 90 02/22/17 19:00 100 Trach Collar 28 I/O 02/22/17 02/22/17 02/22/17 02/23/17 02/23/17 02/23/17 07:00 15:00 23:00 07:00 15:00 23:00 Intake Total 628 ml 940 ml 0 ml Balance 628 ml 940 ml 0 ml Intake Oral 0 ml Tube Feeding 428 ml 880 ml Tube Irrigant 200 ml Other 60 ml # Voids 2 1 # Bowel Movements 1 1 0 Result Diagram: 02/23/17 0535 02/23/17 0535 Objective Remarks PHYSICAL EXAMINATION GENERAL: Averagely built young white female with no acute distress. She was lying flat. She has trach tube in place with a T-bar. HEENT: Head normocephalic. Pupils are reactive. Throat clear. NECK: Supple. No bruits, no venous distension. Trach site was clean CHEST: Equal movements with clear lung lawson. CARDIAC: Heart sounds are regular. No murmur. ABDOMEN: Soft and nontender.PEG +. Bowel sounds are active. EXTREMITIES: Weakness of the lower limbs and left side . Contractures of limbs.She is somewhat lethargic, but responds. SKIN: Dry and cool. Assessment and Plan Assessment and Plan IMPRESSION 1. Respiratory failure with a history of MRSA pneumonia 2. Status post craniotomy for a subdural hematoma and traumatic brain injury 3. Right rib fractures with history of pneumothorax, resolved 4. Tachycardia Plan : 1. T bar at 28 %. 2. Suction and lavage trach q3h. 3. Nebs qid , albuterol prn. 4. Trach collar at 28 % 5. Levsin .125 mg tid prn. 6. Tube feeds as ordered. 7. Will change trach to fenestrated and use PM Valve. Michela Mohr MD Feb 23, 2017 18:32
[2017-02-23] MEDS: FAMOTIDINE 20 MG TAB PO SCH (21:58)
[2017-02-24] VITALS (8 sets, daily range): BP systolic 101–132; BP diastolic 68–98; PULSE 80–101; RESP 16–18; TEMP 97.3–98.9; O2SAT 99–100
[2017-02-24] MEDS: cefTRIAXone INJ 1,000 MG in SODIUM CHLORIDE 0.9% INJ 100 ML IV SCH ×2 (02:18→13:09)
[2017-02-24] MEDS: ARTIFICIAL TEARS OPTH SOLN 15 ML BTL EACH EYE SCH ×4 (05:35→18:32)
[2017-02-24] MEDS: PROPRANOLOL HCL 20 MG TAB PO SCH ×3 (05:35→21:52)
[2017-02-24] MEDS: SODIUM CHLORIDE 0.9% FLUSH 10 ML FLUSH IV FLUSH SCH ×2 (09:00→21:00)
[2017-02-24] MEDS: MIDODRINE 5 MG TAB PO SCH ×3 (09:11→18:32)
[2017-02-24] MEDS: BROMOCRIPTINE MESYLATE 2.5 MG TAB PO SCH ×2 (09:11→21:51)
[2017-02-24] MEDS: LANSOPRAZOLE SOLUTAB 30 MG TAB NG SCH (09:12)
[2017-02-24] MEDS: DOCUSATE SODIUM 50 MG/SENNA 8.6 MG TAB PO SCH ×2 (09:12→21:52)
[2017-02-24] MEDS: levETIRAcetam 500 MG TAB PO SCH ×2 (09:12→21:52)
[2017-02-24] MEDS: BISACODYL 10 MG SUPP RECTAL SCH (09:12)
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
[2017-02-24] MEDS: ENOXAPARIN SODIUM 40 MG/0.4 ML SYRINGE SQ SCH (21:51)
[2017-02-24] MEDS: FAMOTIDINE 20 MG TAB PO SCH (21:52)
[2017-02-25] VITALS (14 sets, daily range): BP systolic 80–141; BP diastolic 45–95; PULSE 80–106; RESP 11–18; TEMP 97.8–99.9; O2SAT 98–100
[2017-02-25] MEDS: cefTRIAXone INJ 1,000 MG in SODIUM CHLORIDE 0.9% INJ 100 ML IV SCH ×2 (01:08→12:32)
[2017-02-25] MEDS: ARTIFICIAL TEARS OPTH SOLN 15 ML BTL EACH EYE SCH ×4 (01:08→19:01)
[2017-02-25] MEDS: PROPRANOLOL HCL 20 MG TAB PO SCH ×3 (05:46→21:44)
[2017-02-25 06:54] LABS: AUTOMATED NEUTROPHIL # 3.4 TH/MM3 (1.8-7.7); BASOPHIL # 0.1 TH/MM3 (0-0.2); EOSINOPHIL # 0.4 TH/MM3 (0-0.4); EOSINOPHIL % 6.7 % (0.0-4.0); HEMATOCRIT 33.8 % (35.0-46.0); HEMO FLAGS DIFF FINAL; LYMPH % 23.3 % (9.0-44.0); LYMPHOCYTE # 1.4 TH/MM3 (1.0-4.8); MEAN CELL VOLUME 85.2 FL (80.0-100.0); MEAN CORPUSCULAR HEMOGLOBIN 29.1 PG (27.0-34.0); MEAN CORPUSCULAR HGB CONC 34.2 % (32.0-36.0); MONO % 14.2 % (0.0-8.0); NEUT % 54.8 % (16.0-70.0); PLATELET COUNT 287 TH/MM3 (150-450); RED BLOOD COUNT 3.97 MIL/MM3 (4.00-5.30); RED CELL DISTRIBUTION WIDTH 14.7 % (11.6-17.2); WHITE BLOOD COUNT 6.2 TH/MM3 (4.0-11.0)
[2017-02-25 06:57] LABS: POTASSIUM 4.1 MEQ/L (3.5-5.1)
[2017-02-25 07:01] LABS: BICARBONATE 29.2 MEQ/L (21.0-32.0)
[2017-02-25] MEDS: BISACODYL 10 MG SUPP RECTAL SCH (09:00)
[2017-02-25] MEDS: BROMOCRIPTINE MESYLATE 2.5 MG TAB PO SCH ×2 (09:24→21:19)
[2017-02-25] MEDS: MIDODRINE 5 MG TAB PO SCH ×3 (09:24→19:00)
[2017-02-25] MEDS: LANSOPRAZOLE SOLUTAB 30 MG TAB NG SCH (09:24)
[2017-02-25] MEDS: levETIRAcetam 500 MG TAB PO SCH ×2 (09:24→21:19)
[2017-02-25] MEDS: DOCUSATE SODIUM 50 MG/SENNA 8.6 MG TAB PO SCH ×2 (09:24→21:00)
[2017-02-25] MEDS: LACOSAMIDE 50 MG TAB G-TUBE SCH ×2 (09:25→21:19)
[2017-02-25] MEDS: SODIUM CHLORIDE 0.9% FLUSH 10 ML FLUSH IV FLUSH SCH ×2 (09:25→21:19)
[2017-02-25 09:27] LABS: PHENOBARBITAL 18.2 MCG/ML (15.0-40.0)
--- NOTE | 2017-02-25 10:42 | HHI.PR ---
Subjective Remarks EEG this morning shows breakthrough temporal lobe seizures according to the instrumentation and control technician. On exam these are subclinical. Discussed with at bedside. Discussed with Dr. Rivas. Afebrile. Objective Vitals Vital Signs Date Time Temp Pulse Resp B/P Pulse Ox O2 Delivery O2 Flow Rate FiO2 02/25/17 08:00 97.8 93 18 114/69 99 02/25/17 04:00 98.8 106 18 122/84 99 02/25/17 00:00 99.9 95 18 141/82 98 02/24/17 20:30 99 T-piece 6.00 28 02/24/17 20:00 98.2 80 18 101/72 100 02/24/17 20:00 93 02/24/17 19:00 Venturi Mask 28 T-Piece 02/24/17 16:00 98.6 90 18 105/77 99 02/24/17 12:00 Trach Collar 28 02/24/17 12:00 98.6 95 18 101/75 99 I/O 02/24/17 02/24/17 02/24/17 02/25/17 02/25/17 02/25/17 07:00 15:00 23:00 07:00 15:00 23:00 Intake Total 960 ml 240 ml 480 ml Output Total 3 ml Balance 960 ml 237 ml 480 ml Tube Feeding 960 ml 240 ml 480 ml Output Stool Total 3 ml # Voids 2 5 3 # Bowel Movements 2 0 0 Result Diagram: 02/25/17 0530 02/25/17 0530 Objective Remarks GENERAL: Well-nourished, well-developed nonverbal young adult female. SKIN: Warm and dry. HEAD: Wearing helmet. EYES: No scleral icterus. No injection or drainage. NECK: Supple, trachea midline. No JVD or lymphadenopathy. CARDIOVASCULAR: Regular rate and rhythm without murmurs, gallops, or rubs. RESPIRATORY: Breath sounds equal bilaterally. No accessory muscle use. GASTROINTESTINAL: Abdomen soft, non-tender, nondistended. EXTREMITIES: No cyanosis, or edema. NEUROLOGICAL: Awake, alert, spasticity of limbs noted. Side: Left A/P Problem List: (1) Breakthrough seizure ICD Code: G40.919 Status: Acute (2) Seizure disorder ICD Code: G40.909 Status: Acute (3) Major neurocognitive disorder as late effect of traumatic brain injury without behavioral disturbance ICD Code: S06.9X9S Status: Acute (4) Closed head injury ICD Code: S09.90XA Status: Acute (5) Subdural hematoma ICD Code: I62.00 Status: Acute (6) Pelvic fracture ICD Code: S32.9XXA Status: Acute (7) Kidney contusion ICD Code: S37.019A Status: Acute (8) Liver laceration ICD Code: S36.113A Status: Acute (9) Trauma ICD Code: T14.90 Status: Acute (10) Sinus tachycardia ICD Code: R00.0 Status: Acute (11) 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 Patient is tolerating T piece at 28% oxygen with good O2 saturations. Pulmonology following the patient. Levsin for secretions Traumatic brain injury, sub-dural hematoma, status post left decompressive craniotomy evacuation on December [address] February 20 showed postsurgical changes. I discussed with Dr. Chavez neurosurgery today. He is planning for bone flap next week. Patient will need to be transferred to the [facility] hospital for surgery. -Breakthrough seizures. Subclinical on exam. D/w Dr. Rivas who recommended starting vimpat and consulting on-call neurology. Continue Keppra and phenobarbital (phenbarbital level therapeutic at 18.2 today). Will transfer now to ICU for closer monitoring; needs to go to the [facility] hospital for flap - d/ w -he prefers her to be moved only once rather to ICU here and then ICU there, d/w greenhouse assistant who is arranging stat transfer. Currently pt is hemodynamically stable, continue telemetry monitoring. Repeat EEG tomorrow. Ativan IV prn seizure activity. Multiple pelvic fractures. Transverse process fractures, lumbar region: Continue physical therapy, occupational therapy, speech therapy Sinus tachycardia: Continue Inderal 10 mg 3 times daily, to hold for hypotension. Low blood pressure: Improved, Likely secondary to brain injury. Patient remains on midodrine Records indicate MRSA pneumonia: Patient completed vancomycin on 02/18. -Low-grade fevers, mild leukocytosis. Afebrile 24 hours. Chest x-ray 02/22- negative. Blood culture 4/2-no growth at 48 hours. UA negative. Blood cultures negative 2 days. We'll repeat CBC in the morning. If blood cultures negative 3 days (today) we'll discontinue Rocephin which was started prophylactically. GI protection with Prevacid DVT prevention: Subcutaneous heparin Discussed in detail with patient's at bedside. Discussed with greenhouse assistant. Amita Hair MD Feb 25, 2017 10:42
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
--- NOTE | 2017-02-25 18:29 | HHI.PR ---
Subjective Remarks Awake and moves right arm , Has eye twitching.On a T bar at 28 %.Family states that she tries to talk Off Antibiotics ,No fever . Chest X ray was clear. Transferred to ICU due to seizures Objective Vital Signs Date Time Temp Pulse Resp B/P Pulse Ox O2 Delivery O2 Flow Rate FiO2 02/25/17 17:02 82 11 80/45 99 02/25/17 16:30 97.8 88 14 100/55 02/25/17 15:11 99 Trach Collar 6.00 28 02/25/17 12:00 98.3 88 16 96/51 100 02/25/17 11:50 98 Trach Collar 6.00 28 02/25/17 08:00 97.8 93 18 114/69 99 02/25/17 08:00 80 02/25/17 07:00 100 T-Piece 28 Humidified 02/25/17 04:00 98.8 106 18 122/84 99 02/25/17 00:00 99.9 95 18 141/82 98 02/24/17 20:30 99 T-piece 6.00 28 02/24/17 20:00 98.2 80 18 101/72 100 02/24/17 20:00 93 02/24/17 19:00 Venturi Mask 28 T-Piece I/O 02/24/17 02/24/17 02/24/17 02/25/17 02/25/17 02/25/17 07:00 15:00 23:00 07:00 15:00 23:00 Intake Total 960 ml 240 ml 480 ml Output Total 3 ml Balance 960 ml 237 ml 480 ml Tube Feeding 960 ml 240 ml 480 ml Output Stool Total 3 ml # Voids 2 5 3 # Bowel Movements 2 0 0 Result Diagram: 02/25/17 0530 02/25/17 0530 Objective Remarks PHYSICAL EXAMINATION GENERAL: Averagely built young white female with no acute distress. She was lying flat. She has trach tube in place with a T-bar. HEENT: Head normocephalic. Some eyelid twitches. NECK: Supple. No bruits, no venous distension. Trach site was clean CHEST: Equal movements with clear lung lawson. CARDIAC: Heart sounds are regular. No murmur. ABDOMEN: Soft and nontender.PEG +. Bowel sounds are active. EXTREMITIES: Weakness of the lower limbs and left side . Contractures of limbs.She is somewhat lethargic, but responds. SKIN: Dry and cool. Assessment and Plan Assessment and Plan IMPRESSION 1. Respiratory failure with a history of MRSA pneumonia 2. Status post craniotomy for a subdural hematoma and traumatic brain injury 3. Right rib fractures with history of pneumothorax, resolved 4. Tachycardia Plan : 1. T bar at 28 %. 2. Suction and lavage trach q3h. 3. Nebs qid , albuterol prn. 4. Levsin .125 mg tid prn for secretions. 5. BMP,CBC. 6. Tube feeds as ordered. Michela Mohr MD Feb 25, 2017 18:29 Michela Mohr MD Feb 25, 2017 18:29
[2017-02-25] MEDS: ENOXAPARIN SODIUM 40 MG/0.4 ML SYRINGE SQ SCH (21:19)
[2017-02-25] MEDS: FAMOTIDINE 20 MG TAB PO SCH (21:19)
[2017-02-26] VITALS (22 sets, daily range): BP systolic 66–160; BP diastolic 34–94; PULSE 82–104; RESP 10–21; TEMP 97.6–99.6; O2SAT 97–100
[2017-02-26] MEDS: cefTRIAXone INJ 1,000 MG in SODIUM CHLORIDE 0.9% INJ 100 ML IV SCH (02:27)
[2017-02-26] MEDS: PROPRANOLOL HCL 20 MG TAB PO SCH (05:47)
[2017-02-26] MEDS: ARTIFICIAL TEARS OPTH SOLN 15 ML BTL EACH EYE SCH ×4 (05:47→19:00)
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
[2017-02-26] MEDS ORDERED: levETIRAcetam 1000 MG INJ 100 ML IV ONE (09:00)
[2017-02-26] MEDS: DOCUSATE SODIUM 50 MG/SENNA 8.6 MG TAB PO SCH ×2 (09:00→21:46)
[2017-02-26] MEDS: LACOSAMIDE 50 MG TAB G-TUBE SCH ×2 (10:02→21:47)
[2017-02-26] MEDS: BROMOCRIPTINE MESYLATE 2.5 MG TAB PO SCH ×2 (10:02→21:46)
[2017-02-26] MEDS: LANSOPRAZOLE SOLUTAB 30 MG TAB NG SCH (10:03)
[2017-02-26] MEDS: SODIUM CHLORIDE 0.9% FLUSH 10 ML FLUSH IV FLUSH SCH ×2 (10:07→21:00)
[2017-02-26] MEDS: levETIRAcetam 500 MG TAB PO SCH ×2 (10:07→21:47)
[2017-02-26] MEDS: levETIRAcetam 250 MG TAB PO SCH ×2 (10:07→21:47)
[2017-02-26] MEDS: BISACODYL 10 MG SUPP RECTAL SCH (10:11)
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
[2017-02-26] MEDS: MIDODRINE 5 MG TAB PO SCH ×2 (13:27→19:00)
[2017-02-26] MEDS: PROPRANOLOL HCL 10 MG TAB PO SCH ×2 (13:27→21:46)
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
[2017-02-26] MEDS: ENOXAPARIN SODIUM 40 MG/0.4 ML SYRINGE SQ SCH (21:46)
[2017-02-26] MEDS: FAMOTIDINE 20 MG TAB PO SCH (21:47)
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
[2017-02-27] VITALS (20 sets, daily range): BP systolic 77–143; BP diastolic 50–76; PULSE 89–112; RESP 11–16; TEMP 97.5–99.7; O2SAT 98–100
[2017-02-27] MEDS: ACETAMINOPHEN 325 MG TAB PO PRN (04:20)
[2017-02-27 05:29] LABS: AUTOMATED NEUTROPHIL # 2.7 TH/MM3 (1.8-7.7); BASOPHIL # 0.1 TH/MM3 (0-0.2); BASOPHIL % 1.2 % (0.0-2.0); EOSINOPHIL # 0.3 TH/MM3 (0-0.4); EOSINOPHIL % 6.2 % (0.0-4.0); HEMATOCRIT 34.8 % (35.0-46.0); HEMO FLAGS DIFF FINAL; LYMPH % 29.9 % (9.0-44.0); LYMPHOCYTE # 1.7 TH/MM3 (1.0-4.8); MEAN CELL VOLUME 84.2 FL (80.0-100.0); MEAN CORPUSCULAR HEMOGLOBIN 29.2 PG (27.0-34.0); MEAN CORPUSCULAR HGB CONC 34.7 % (32.0-36.0); MONO % 14.3 % (0.0-8.0); NEUT % 48.4 % (16.0-70.0); PLATELET COUNT 269 TH/MM3 (150-450); RED BLOOD COUNT 4.13 MIL/MM3 (4.00-5.30); RED CELL DISTRIBUTION WIDTH 14.4 % (11.6-17.2); WHITE BLOOD COUNT 5.6 TH/MM3 (4.0-11.0)
[2017-02-27 05:35] LABS: POTASSIUM 4.4 MEQ/L (3.5-5.1)
[2017-02-27 05:41] LABS: BICARBONATE 29.1 MEQ/L (21.0-32.0); MAGNESIUM 2.6 MG/DL (1.5-2.5)
[2017-02-27] MEDS: ARTIFICIAL TEARS OPTH SOLN 15 ML BTL EACH EYE SCH ×4 (05:57→18:00)
[2017-02-27] MEDS: PROPRANOLOL HCL 10 MG TAB PO SCH ×3 (06:36→22:00)
[2017-02-27] MEDS: DOCUSATE SODIUM 50 MG/SENNA 8.6 MG TAB PO SCH ×2 (09:00→20:25)
[2017-02-27] MEDS: SODIUM CHLORIDE 0.9% FLUSH 10 ML FLUSH IV FLUSH SCH ×2 (09:00→20:24)
[2017-02-27] MEDS: BISACODYL 10 MG SUPP RECTAL SCH (09:00)
[2017-02-27] MEDS: levETIRAcetam 500 MG TAB PO SCH ×2 (09:30→20:25)
[2017-02-27] MEDS: LACOSAMIDE 50 MG TAB G-TUBE SCH ×2 (09:30→20:25)
[2017-02-27] MEDS: levETIRAcetam 250 MG TAB PO SCH ×2 (09:30→20:25)
[2017-02-27] MEDS: MIDODRINE 5 MG TAB PO SCH ×4 (09:31→20:25)
[2017-02-27] MEDS: LANSOPRAZOLE SOLUTAB 30 MG TAB NG SCH (09:31)
[2017-02-27] MEDS: BROMOCRIPTINE MESYLATE 2.5 MG TAB PO SCH ×2 (09:31→20:25)
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
[2017-02-27] MEDS: ENOXAPARIN SODIUM 40 MG/0.4 ML SYRINGE SQ SCH (20:24)
[2017-02-27] MEDS: FAMOTIDINE 20 MG TAB PO SCH (20:25)
[2017-02-28] VITALS (41 sets, daily range): BP systolic 81–183; BP diastolic 48–113; PULSE 90–118; RESP 10–22; TEMP 98.7–99.4; O2SAT 95–100
[2017-02-28] MEDS: ARTIFICIAL TEARS OPTH SOLN 15 ML BTL EACH EYE SCH ×4 (00:39→18:24)
[2017-02-28] MEDS: PROPRANOLOL HCL 10 MG TAB PO SCH ×2 (05:24→14:00)
[2017-02-28 06:24] LABS: BASOPHIL # 0.1 TH/MM3 (0-0.2); BASOPHIL % 0.9 % (0.0-2.0); EOSINOPHIL # 0.4 TH/MM3 (0-0.4); EOSINOPHIL % 6.3 % (0.0-4.0); HEMO FLAGS DIFF FINAL; LYMPH % 32.1 % (9.0-44.0); MEAN CELL VOLUME 84.6 FL (80.0-100.0); MEAN CORPUSCULAR HEMOGLOBIN 28.7 PG (27.0-34.0); MEAN CORPUSCULAR HGB CONC 33.9 % (32.0-36.0); MONO % 13.2 % (0.0-8.0); NEUT % 47.5 % (16.0-70.0); PLATELET COUNT 292 TH/MM3 (150-450); RED BLOOD COUNT 4.01 MIL/MM3 (4.00-5.30); RED CELL DISTRIBUTION WIDTH 14.4 % (11.6-17.2); WHITE BLOOD COUNT 6.3 TH/MM3 (4.0-11.0)
[2017-02-28 06:33] LABS: POTASSIUM 4.4 MEQ/L (3.5-5.1)
[2017-02-28 06:36] LABS: BICARBONATE 30.3 MEQ/L (21.0-32.0); MAGNESIUM 2.7 MG/DL (1.5-2.5)
[2017-02-28] MEDS: levETIRAcetam 250 MG TAB PO SCH ×2 (09:56→20:09)
[2017-02-28] MEDS: LACOSAMIDE 50 MG TAB G-TUBE SCH ×2 (09:57→20:09)
[2017-02-28] MEDS: BISACODYL 10 MG SUPP RECTAL SCH (09:57)
[2017-02-28] MEDS: BROMOCRIPTINE MESYLATE 2.5 MG TAB PO SCH ×2 (09:57→20:09)
[2017-02-28] MEDS: LANSOPRAZOLE SOLUTAB 30 MG TAB NG SCH (09:57)
[2017-02-28] MEDS: DOCUSATE SODIUM 50 MG/SENNA 8.6 MG TAB PO SCH ×2 (09:57→20:08)
[2017-02-28] MEDS: levETIRAcetam 500 MG TAB PO SCH ×2 (09:57→20:09)
[2017-02-28] MEDS: MIDODRINE 5 MG TAB PO SCH ×2 (09:58→20:09)
[2017-02-28] MEDS: SODIUM CHLORIDE 0.9% FLUSH 10 ML FLUSH IV FLUSH SCH ×2 (09:59→20:08)
[2017-02-28] MEDS: RESP: ALBUTEROL 2.5 MG/IPRATROPIUM 0.5 MG NEB (PRN) NEB (10:53)
[2017-02-28] MEDS: ENOXAPARIN SODIUM 40 MG/0.4 ML SYRINGE SQ SCH (20:08)
[2017-02-28] MEDS: FAMOTIDINE 20 MG TAB PO SCH (20:08)
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
[2017-03-01] VITALS (27 sets, daily range): BP systolic 82–154; BP diastolic 40–92; PULSE 88–114; RESP 9–18; TEMP 97.9–99; O2SAT 87–100
[2017-03-01] MEDS: ARTIFICIAL TEARS OPTH SOLN 15 ML BTL EACH EYE SCH ×4 (00:17→20:40)
[2017-03-01] MEDS: PROPRANOLOL HCL 10 MG TAB PO SCH ×4 (00:17→21:15)
[2017-03-01] MEDS: DOCUSATE SODIUM 50 MG/SENNA 8.6 MG TAB PO SCH ×2 (09:00→20:41)
[2017-03-01] MEDS: BISACODYL 10 MG SUPP RECTAL SCH (09:00)
[2017-03-01] MEDS: levETIRAcetam 500 MG TAB PO SCH ×2 (09:46→20:41)
[2017-03-01] MEDS: levETIRAcetam 250 MG TAB PO SCH ×2 (09:46→20:41)
[2017-03-01] MEDS: BROMOCRIPTINE MESYLATE 2.5 MG TAB PO SCH ×2 (09:46→20:41)
[2017-03-01] MEDS: MIDODRINE 5 MG TAB PO SCH ×2 (09:46→20:41)
[2017-03-01] MEDS: LACOSAMIDE 50 MG TAB G-TUBE SCH ×2 (09:46→20:41)
[2017-03-01] MEDS: LANSOPRAZOLE SOLUTAB 30 MG TAB NG SCH (09:46)
[2017-03-01] MEDS: SODIUM CHLORIDE 0.9% FLUSH 10 ML FLUSH IV FLUSH SCH ×2 (10:28→20:42)
[2017-03-01] MEDS: ENOXAPARIN SODIUM 40 MG/0.4 ML SYRINGE SQ SCH (20:40)
[2017-03-01] MEDS: FAMOTIDINE 20 MG TAB PO SCH (20:41)
--- NOTE | 2017-03-01 23:43 | HHI.PR ---
Subjective Remarks patient seen today around 9 AM. Nurses report no acute changes. says that patient appears comfortable. patient nonverbal as before. Objective Vital Signs Date Time Temp Pulse Resp B/P Pulse Ox O2 Delivery O2 Flow Rate FiO2 03/01/17 20:30 98 Trach Collar 6.00 21 03/01/17 18:00 96 03/01/17 18:00 104 14 96/61 95 03/01/17 17:30 104 13 117/66 96 03/01/17 17:00 104 14 140/82 96 03/01/17 16:30 98 12 94/45 96 03/01/17 16:00 98.5 106 14 137/79 95 03/01/17 16:00 88 03/01/17 15:30 102 13 138/77 96 03/01/17 15:01 106 15 110/70 87 03/01/17 14:05 90 03/01/17 14:03 90 11 123/76 96 03/01/17 14:01 92 11 82/40 96 03/01/17 12:45 97 Trach Collar 21 Humidified 03/01/17 12:01 97.9 90 14 110/52 100 03/01/17 12:00 90 03/01/17 11:01 98 10 91/46 96 03/01/17 10:30 100 Trach Collar 21 Humidified 03/01/17 10:03 100 T-piece 21 03/01/17 10:01 106 12 99/56 100 03/01/17 10:00 106 03/01/17 09:00 100 Trach Collar 28 03/01/17 09:00 108 16 135/86 100 03/01/17 08:00 103 03/01/17 08:00 98.3 102 15 129/90 99 03/01/17 07:45 98 T-Piece 28 Humidified 03/01/17 07:00 102 15 139/80 99 03/01/17 06:00 112 03/01/17 04:00 112 03/01/17 04:00 98.6 112 18 154/84 99 03/01/17 03:00 100 13 107/58 100 03/01/17 02:00 102 03/01/17 02:00 102 18 145/84 100 03/01/17 01:00 100 15 143/85 100 03/01/17 00:00 99.0 114 13 114/57 99 03/01/17 00:00 114 I/O 02/28/17 02/28/17 02/28/17 03/01/17 03/01/17 03/01/17 07:00 15:00 23:00 07:00 15:00 23:00 Intake Total 602 ml 676 ml 638 ml 521 ml 535 ml 1064 ml Balance 602 ml 676 ml 638 ml 521 ml 535 ml 1064 ml Intake Oral 0 ml IV Total 0 ml 0 ml 0 ml 0 ml Tube Feeding 502 ml 476 ml 538 ml 421 ml 415 ml 964 ml Tube Irrigant 100 ml 200 ml 100 ml 100 ml 120 ml 100 ml # Voids 2 1 1 1 1 2 # Bowel Movements 1 1 0 1 1 0 Result Diagram: 02/28/1760402/28/17604 Objective Remarks GENERAL: Sitting up in bed. Appears comfortable. sleeping. patient wakes up for exam. Appears to indicate that tracheostomy T piece is uncomfortable, improves with return to trach collar with blow-by. SKIN: Warm and dry. HEAD: Normocephalic. Craniotomy EYES: No scleral icterus. No injection or drainage. NECK: Supple, trachea midline. No JVD. CARDIOVASCULAR: Regular rate and rhythm without murmurs, gallops, or rubs. RESPIRATORY: Breath sounds equal bilaterally. No accessory muscle use. GASTROINTESTINAL: Abdomen soft, non-tender, nondistended. PEG tube in place. no Surrounding erythema. MUSCULOSKELETAL: No cyanosis, or edema. A/P Assessment and Plan //Chronic respiratory failure. Patient is tolerating T piece at 28% oxygen with good O2 saturations. Levsin for secretions -Continue treatment as per pulmonology. Appreciate assistance. //Traumatic brain injury, sub-dural hematoma, status post left decompressive craniotomy evacuation on December [address] February 20 showed postsurgical changes. -Dr. Gibson is planning for bone flap this week. Patient will need to be transferred to the main hospital for surgery. //Breakthrough seizures. Subclinical on exam. D/w Dr. Rivas who recommended starting vimpat and consulting on-call neurology. Continue Keppra and phenobarbital (phenbarbital level therapeutic at 18.2 today). Will transfer now to ICU for closer monitoring; needs to go to the main hospital for flap - d/ w -he prefers her to be moved only once rather to ICU here and then ICU there, d/w dry house operator who is arranging stat transfer. Currently pt is hemodynamically stable, continue telemetry monitoring. Repeat EEG tomorrow. Ativan IV prn seizure activity. 02/26. Temporal lobe seizures. Increased dose of Keppra as per neurology. Appreciate assistance. Continue to monitor. 02/27. Patient is calm, participating with physical therapy. EEG Thursday .Appreciate neurology assistance. 02/28 EEG improved. No epileptic activity. //Multiple pelvic fractures. Transverse process fractures, lumbar region: Continue physical therapy, occupational therapy, speech therapy //Sinus tachycardia: -initially managed on Inderal. -02/26. Decreased dose of Inderal. decrease dose of midodrine as well. -02/27. Vitals overall stable. Plan to decrease midodrine tomorrow. 02/28 some low and high BP. reportedly posture dependent. cont meds as ordered, monitor. -03/01 Instead of a nonselective beta xena (alpha and beta xena) and midodrine (an alpha antagonist), will plan to change to metoprolol, then can likely discontinue midodrine //Low blood pressure: Improved, Likely secondary to brain injury. -02/26. Blood pressure high Decreased dose of midodrine 5 mg 3 times a day. Need to monitor blood pressure. -02/28 some low and high BP. reportedly posture depedent. cont meds as ordered, monitor. -03/01. Blood pressure stable. Plan switch to metoprolol. //Records indicate MRSA pneumonia: Patient completed vancomycin on 02/18. //Low-grade fevers, mild leukocytosis. Afebrile 24 hours. Chest x-ray 02/22- negative. Blood culture 02/22-no growth at 48 hours. UA negative. Blood cultures negative 2 days. We'll repeat CBC in the morning. If blood cultures negative 3 days (today) we'll discontinue Rocephin which was started prophylactically. = 02/26. Blood cultures negative 3 days. Last fever 02/21 . discontinue Rocephin. = No further fevers. Continue to monitor. //GI protection with Prevacid //Superficial thrombosis of the basilic vein left upper extremity. no Treatment necessary. //DVT prevention: Subcutaneous heparin Discharge Planning pt to be transferred to [facility] ICU for neurosurgical intervention. waiting for ICU bed at [facility]. Davonte Santana MD Mar 01, 2017 23:43
[2017-03-01] MEDS ORDERED: SODIUM CHLORIDE 0.65% NASAL SPRAY 45 ML BTL NASAL PRN (23:45)
[2017-03-01] MEDS ORDERED: PILL SPLITTER OTHER PRN (23:45)
[2017-03-02] VITALS (21 sets, daily range): BP systolic 94–166; BP diastolic 51–97; PULSE 86–120; RESP 11–21; TEMP 97.3–98.6; O2SAT 90–99
[2017-03-02] MEDS: ARTIFICIAL TEARS OPTH SOLN 15 ML BTL EACH EYE SCH ×4 (01:03→17:10)
[2017-03-02] MEDS: BISACODYL 10 MG SUPP RECTAL SCH (09:00)
[2017-03-02] MEDS: LANSOPRAZOLE SOLUTAB 30 MG TAB NG SCH (09:48)
[2017-03-02] MEDS: levETIRAcetam 250 MG TAB PO SCH (09:48)
[2017-03-02] MEDS: levETIRAcetam 500 MG TAB PO SCH (09:48)
[2017-03-02] MEDS: MIDODRINE 5 MG TAB PO SCH ×2 (09:48→20:37)
[2017-03-02] MEDS: DOCUSATE SODIUM 50 MG/SENNA 8.6 MG TAB PO SCH ×2 (09:48→20:37)
[2017-03-02] MEDS: METOPROLOL TARTRATE 25 MG TAB PO SCH ×2 (09:48→20:39)
[2017-03-02] MEDS: SODIUM CHLORIDE 0.9% FLUSH 10 ML FLUSH IV FLUSH SCH ×2 (09:49→20:37)
[2017-03-02] MEDS: BROMOCRIPTINE MESYLATE 2.5 MG TAB PO SCH ×2 (09:49→20:36)
[2017-03-02] MEDS: LACOSAMIDE 50 MG TAB G-TUBE SCH ×2 (09:49→20:37)
--- NOTE | 2017-03-02 09:55 | HHI.PR ---
Subjective Remarks Patient seen and examined today with Dr. Santana. Case was discussed with at bedside. Abdomen no indication recurrent seizures at this time. Still awaiting transfer to the main hospital for bone flap surgery. Objective Vitals Vital Signs Date Time Temp Pulse Resp B/P Pulse Ox O2 Delivery O2 Flow Rate FiO2 03/02/17 07:30 93 Trach Collar 21 03/02/17 06:00 110 03/02/17 04:00 108 03/02/17 04:00 98.5 108 11 94/72 96 03/02/17 02:00 94 03/02/17 00:00 98.5 94 11 97/51 95 03/02/17 00:00 94 03/01/17 20:30 98 Trach Collar 6.00 21 03/01/17 20:00 95 Trach Collar 21 Humidified 03/01/17 20:00 98.2 102 9 136/92 95 03/01/17 20:00 102 03/01/17 18:00 96 03/01/17 18:00 104 14 96/61 95 03/01/17 17:30 104 13 117/66 96 03/01/17 17:00 104 14 140/82 96 03/01/17 16:30 98 12 94/45 96 03/01/17 16:00 98.5 106 14 137/79 95 03/01/17 16:00 88 03/01/17 15:30 102 13 138/77 96 03/01/17 15:01 106 15 110/70 87 03/01/17 14:05 90 03/01/17 14:03 90 11 123/76 96 03/01/17 14:01 92 11 82/40 96 03/01/17 12:45 97 Trach Collar 21 Humidified 03/01/17 12:01 97.9 90 14 110/52 100 03/01/17 12:00 90 03/01/17 11:01 98 10 91/46 96 03/01/17 10:30 100 Trach Collar 21 Humidified 03/01/17 10:03 100 T-piece 03/01/17 10:01 106 12 99/56 100 03/01/17 10:00 106 I/O 03/01/17 03/01/17 03/01/17 03/02/17 03/02/17 03/02/17 07:00 15:00 23:00 07:00 15:00 23:00 Intake Total 521 ml 535 ml 1064 ml 486 ml Balance 521 ml 535 ml 1064 ml 486 ml IV Total 0 ml Tube Feeding 421 ml 415 ml 964 ml 386 ml Tube Irrigant 100 ml 120 ml 100 ml 100 ml # Voids 1 1 3 2 # Bowel Movements 1 1 0 1 Result Diagram: 02/28/1760402/28/17604 Objective Remarks GENERAL: Well-developed, well-nourished, patient does do purposeful responses with smiling on command. HEENT: Patient has obvious intention on the left side of the skull from bone resection from traumatic brain injury. Extraocular muscles are intact. Conjunctivae were clear. NECK: Supple without any masses. Trachea midline no deviation. Tracheostomy noted without any signs of infection CARDIAC: Regular rhythm, regular rate. S1/S2 are heard. No murmurs gallops or rubs. LUNGS: Clear to auscultation bilaterally. No wheeze, rhonchi or rales. No use of accessory muscles on inspiration or expiration. ABDOMEN: Soft, nontender. Nondistended. Bowel sounds heard in all 4 quadrants. No organomegaly or masses. Negative rebound, negative guarding. PEG tube noted without any signs of infection EXTREMITIES: No edema, pulses are equal bilaterally. No cyanosis or clubbing NEUROLOGY: Patient does have good movement of her right upper extremity. However left upper extremity appears to start developing contractures. Does intermittently move lower extremities. Patient with persistent rhythmic lipsmacking and eyelid twitching. Urinary Catheter: Yes Assessment to: Continue Vascular Central Line Catheter: No Side: Left A/P Assessment and Plan Chronic respiratory failure. Patient is tolerating T piece at 28% oxygen with good O2 saturations. We'll not pursue weaning at this time, until speaking with neurosurgery in for surgical intervention. If surgery is going to happen then patient will require tracheostomy for ventilation. Aggressive pulmonary toilet. Pulmonology following the patient. Levsin for secretions Traumatic brain injury.: Patient does have postsurgical changes. Neurosurgery Dr. Gibson, plans on performing bone flap surgery this week per Dr. Hair's note. CT scan was done in preparation. We'll consult Dr. Gibson, transfer order has been in place since 02/25/17. Neuropsychiatrist evaluated the patient Seizure, breakthrough: Patient was already on phenobarbital, Keppra. Patient with breakthrough seizure. Neurology consulted and added Vimpat. Patient not had any recurrent seizures since additional medications started. EEG performed which indicates overall improvement. Multiple pelvic fractures. Transverse process fractures, lumbar region: Continue physical therapy, occupational therapy, speech therapy Sinus tachycardia: Patient was on Inderal, patient converted to metoprolol for more beta selection. Continue monitor heart rate Low blood pressure: Likely secondary to brain injury. Patient remains on midodrine. Continue monitor blood pressure with change of beta xena. Might be able to discontinue midodrine. Low-grade fevers, mild leukocytosis. Resolved. Infectious workup was performed with chest x-ray there was negative. Blood cultures were negative urinalysis was clear, leukocytosis resolved, Records indicate MRSA pneumonia: Patient completed vancomycin on 02/18. Patient remains afebrile, no leukocytosis to indicate active infection. GI protection with Prevacid DVT prevention: Subcutaneous heparin Written by Tex Lindsey PA-C, acting as scribe for Dr. Santana on 03/02/17 at 950. All or portions of this note were transcribed by scribe [Tex Lindsey PA-C] . I, Dr. Davonte Santana personally performed the history, physical exam, and medical decision making; and confirmed the accuracy of the information in the transcribed note. Authenticated by Dr. Davonte Santana on 03/02/17 at 15:53. Tex Lindsey Mar 02, 2017 09:55 Davonte Santana MD Mar 02, 2017 15:53
[2017-03-02] MEDS: ENOXAPARIN SODIUM 40 MG/0.4 ML SYRINGE SQ SCH (20:36)
[2017-03-02] MEDS: FAMOTIDINE 20 MG TAB PO SCH (20:36)
[2017-03-02] MEDS: levETIRAcetam 500 MG/5 ML UDC PEG SCH (22:01)
[2017-03-03] VITALS (16 sets, daily range): BP systolic 87–142; BP diastolic 47–91; PULSE 98–116; RESP 12–16; TEMP 97.7–100.1; O2SAT 93–98
[2017-03-03] MEDS: ARTIFICIAL TEARS OPTH SOLN 15 ML BTL EACH EYE SCH ×5 (00:09→23:35)
[2017-03-03] MEDS: METOPROLOL TARTRATE 25 MG TAB PO SCH ×2 (08:30→22:09)
[2017-03-03] MEDS: LANSOPRAZOLE SOLUTAB 30 MG TAB NG SCH (08:30)
[2017-03-03] MEDS: DOCUSATE SODIUM 50 MG/SENNA 8.6 MG TAB PO SCH ×2 (08:30→22:09)
[2017-03-03] MEDS: LACOSAMIDE 50 MG TAB G-TUBE SCH ×2 (08:30→22:10)
[2017-03-03] MEDS: BROMOCRIPTINE MESYLATE 2.5 MG TAB PO SCH ×2 (08:30→22:10)
[2017-03-03] MEDS: SODIUM CHLORIDE 0.9% FLUSH 10 ML FLUSH IV FLUSH SCH ×2 (08:30→22:11)
[2017-03-03] MEDS: BISACODYL 10 MG SUPP RECTAL SCH (09:00)
[2017-03-03] MEDS: levETIRAcetam 500 MG/5 ML UDC PEG SCH (10:12)
--- NOTE | 2017-03-03 10:59 | HHI.PR ---
Subjective Remarks Patient was seen and examined today with Dr. Santana. is at bedside. Awaiting transfer to the main hospital for bone flap surgery. Objective Vitals Vital Signs Date Time Temp Pulse Resp B/P Pulse Ox O2 Delivery O2 Flow Rate FiO2 03/03/17 08:00 97 Trach Collar 21 03/03/17 07:00 99 Trach Collar 28 Humidified 03/03/17 06:00 111 03/03/17 04:00 98.6 106 14 142/64 98 03/03/17 04:00 106 03/03/17 03:00 106 14 98/61 96 03/03/17 02:00 98 03/03/17 00:00 98 03/02/17 23:00 88 12 98 03/02/17 22:00 86 03/02/17 20:08 97.3 108 12 148/85 97 03/02/17 20:00 116 03/02/17 20:00 97 Trach Collar 21 Humidified 03/02/17 19:30 97 Trach Collar 21 03/02/17 18:38 94 03/02/17 17:36 104 13 158/92 98 03/02/17 17:04 104 17 140/97 99 03/02/17 16:45 100 21 166/90 98 03/02/17 16:45 110 03/02/17 16:00 98 12 109/59 95 03/02/17 14:45 98 03/02/17 12:10 106 03/02/17 12:00 98.6 102 15 112/74 90 I/O 03/02/17 03/02/17 03/02/17 03/03/17 03/03/17 03/03/17 07:00 15:00 23:00 07:00 15:00 23:00 Intake Total 486 ml 475 ml 540 ml 480 ml Balance 486 ml 475 ml 540 ml 480 ml Tube Feeding 386 ml 355 ml 440 ml 480 ml Tube Irrigant 100 ml 120 ml 100 ml # Voids 2 2 1 1 # Bowel Movements 1 1 0 1 Result Diagram: 02/28/17 0602/28/17 06 Objective Remarks GENERAL: Well-developed, well-nourished, patient does do purposeful responses with smiling on command. HEENT: Patient has obvious intention on the left side of the skull from bone resection from traumatic brain injury. Extraocular muscles are intact. Conjunctivae were clear. NECK: Supple without any masses. Trachea midline no deviation. Tracheostomy noted without any signs of infection CARDIAC: Regular rhythm, regular rate. S1/S2 are heard. No murmurs gallops or rubs. LUNGS: Clear to auscultation bilaterally. No wheeze, rhonchi or rales. No use of accessory muscles on inspiration or expiration. ABDOMEN: Soft, nontender. Nondistended. Bowel sounds heard in all 4 quadrants. No organomegaly or masses. Negative rebound, negative guarding. PEG tube noted without any signs of infection EXTREMITIES: No edema, pulses are equal bilaterally. No cyanosis or clubbing NEUROLOGY: Patient does have good movement of her right upper extremity. However left upper extremity appears to start developing contractures. Does intermittently move lower extremities. Patient no longer exhibiting the rhythmic lipsmacking or eyelid twitching. Urinary Catheter: Yes Assessment to: Continue [place] insert reason: Prolonged Immobilization Vascular Central Line Catheter: No Side: Left A/P Assessment and Plan Chronic respiratory failure. Patient is tolerating T piece at 28% oxygen with good O2 saturations. We'll not pursue weaning at this time, awaiting neurosurgery in for surgical intervention. If surgery is going to happen then patient will require tracheostomy for ventilation. Aggressive pulmonary toilet. Pulmonology following the patient. Levsin for secretions Traumatic brain injury.: Patient does have postsurgical changes. Neurosurgery Dr. Gibson, plans on performing bone flap surgery this week per Dr. Hair's note. CT scan was done in preparation. Consulted Dr. Gibson, transfer order has been in place since 02/25/17. Neuropsychiatrist evaluated the patient Seizure, breakthrough: Patient was already on phenobarbital, Keppra. Patient with breakthrough seizure. Neurology consulted and added Vimpat and increased Keppra 750 mg twice daily. Patient not had any recurrent seizures since additional medications started. EEG performed which indicates overall improvement. Multiple pelvic fractures. Transverse process fractures, lumbar region: Continue physical therapy, occupational therapy, speech therapy Sinus tachycardia: Patient was on Inderal, patient converted to metoprolol for more beta selection. Continue monitor heart rate Low blood pressure: Likely secondary to brain injury. Midodrin midodrine was discontinued. Continue monitor blood pressure with change of beta xena. Low-grade fevers, mild leukocytosis. Resolved. Infectious workup was performed with chest x-ray there was negative. Blood cultures were negative urinalysis was clear, leukocytosis resolved, Records indicate MRSA pneumonia: Patient completed vancomycin on 02/18. Patient remains afebrile, no leukocytosis to indicate active infection. GI protection with Prevacid DVT prevention: Subcutaneous heparin Written by Tex Lindsey PA-C, acting as scribe for Dr. Santana on 03/03/17 at 930. All or portions of this note were transcribed by scribe [Tex Lindsey PA-C] . I, Dr. Davonte Santana personally performed the history, physical exam, and medical decision making; and confirmed the accuracy of the information in the transcribed note. Authenticated by Dr. Davonte Santana on 03/03/17 at 17:39. Tex Lindsey Mar 03, 2017 10:59 Davonte Santana MD Mar 03, 2017 17:39
[2017-03-03] MEDS ORDERED: METOPROLOL TARTRATE 25 MG TAB PO ONE (14:30)
[2017-03-03] MEDS: ACETAMINOPHEN 325 MG TAB PO PRN (15:49)
[2017-03-03] MEDS ORDERED: levETIRAcetam 1000 MG INJ 100 ML IV ONE (17:00)
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
[2017-03-03] MEDS: FAMOTIDINE 20 MG TAB PO SCH (22:10)
[2017-03-03] MEDS: levETIRAcetam 500 MG/5 ML UDC NG SCH (22:10)
[2017-03-03] MEDS: ENOXAPARIN SODIUM 40 MG/0.4 ML SYRINGE SQ SCH (22:11)
[2017-03-04] VITALS (16 sets, daily range): BP systolic 97–139; BP diastolic 65–99; PULSE 95–124; RESP 13–18; TEMP 98.4–100.2; O2SAT 93–100
[2017-03-04] MEDS: ARTIFICIAL TEARS OPTH SOLN 15 ML BTL EACH EYE SCH ×4 (05:28→21:55)
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
[2017-03-04 08:29] LABS: AUTOMATED NEUTROPHIL # 8.1 TH/MM3 (1.8-7.7); BASOPHIL # 0.1 TH/MM3 (0-0.2); BASOPHIL % 0.7 % (0.0-2.0); EOSINOPHIL # 0.4 TH/MM3 (0-0.4); EOSINOPHIL % 3.4 % (0.0-4.0); HEMATOCRIT 33.4 % (35.0-46.0); HEMO FLAGS DIFF FINAL; LYMPH % 15.3 % (9.0-44.0); LYMPHOCYTE # 1.7 TH/MM3 (1.0-4.8); MEAN CELL VOLUME 84.2 FL (80.0-100.0); MEAN CORPUSCULAR HGB CONC 33.3 % (32.0-36.0); MONO % 7.2 % (0.0-8.0); NEUT % 73.4 % (16.0-70.0); PLATELET COUNT 303 TH/MM3 (150-450); RED BLOOD COUNT 3.97 MIL/MM3 (4.00-5.30); RED CELL DISTRIBUTION WIDTH 14.2 % (11.6-17.2); WHITE BLOOD COUNT 11.1 TH/MM3 (4.0-11.0)
[2017-03-04 08:36] LABS: CHLORIDE 102 MEQ/L (98-107); POTASSIUM 3.8 MEQ/L (3.5-5.1); SODIUM (NA) 140 MEQ/L (136-145)
[2017-03-04 08:39] LABS: ANION GAP 10 MEQ/L (5-15); APTT (PATIENT) 26.1 SEC (24.3-30.1); BICARBONATE 28.5 MEQ/L (21.0-32.0); PROTHROMBIN TIME - PATIENT 10.8 SEC (9.8-11.6)
[2017-03-04 08:40] LABS: BLOOD UREA NITROGEN 15 MG/DL (7-18)
[2017-03-04 08:42] LABS: ALT (GPT) 48 U/L (10-53); AST (GOT) 16 U/L (15-37)
[2017-03-04 08:43] LABS: GLOMERULAR FILTRATION RATE 229 ML/MIN (>89)
[2017-03-04 08:44] LABS: TOTAL BILIRUBIN ADULT 0.2 MG/DL (0.2-1.0)
[2017-03-04 08:45] LABS: ALKALINE PHOSPHATASE 98 U/L (45-117)
[2017-03-04] MEDS: BISACODYL 10 MG SUPP RECTAL SCH (09:00)
[2017-03-04] MEDS: DOCUSATE SODIUM 50 MG/SENNA 8.6 MG TAB PO SCH ×2 (09:00→20:28)
[2017-03-04] MEDS: BROMOCRIPTINE MESYLATE 2.5 MG TAB PO SCH ×2 (09:15→20:28)
[2017-03-04] MEDS: LACOSAMIDE 50 MG TAB G-TUBE SCH ×2 (09:15→20:28)
[2017-03-04] MEDS: SODIUM CHLORIDE 0.9% FLUSH 10 ML FLUSH IV FLUSH SCH ×2 (09:16→20:37)
[2017-03-04] MEDS: levETIRAcetam 500 MG/5 ML UDC NG SCH ×2 (09:16→20:28)
[2017-03-04] MEDS: LANSOPRAZOLE SOLUTAB 30 MG TAB NG SCH (09:16)
[2017-03-04] MEDS: METOPROLOL TARTRATE 25 MG TAB PO SCH ×2 (09:16→20:28)
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
[2017-03-04 10:07] LABS: BLOOD, URINE NEG (NEG); GLUCOSE,URINE NEG (NEG); KETONE, URINE NEG (NEG); NITRITE,URINE NEG (NEG); PH, URINE 7.5 (5.0-8.5)
[2017-03-04 10:20] LABS: COMMENT (UR) CATH-CULT NOT IND; CULTURE IF INDICATED CATH CULTURE NOT IND; METHOD OF COLLECTION CATH; URINE COLOR YELLOW (YELLW/STRAW); WBC, URINE 0-2 /hpf (0-5)
[2017-03-04] MEDS: ENOXAPARIN SODIUM 40 MG/0.4 ML SYRINGE SQ SCH (20:28)
[2017-03-04] MEDS: FAMOTIDINE 20 MG TAB PO SCH (20:28)
[2017-03-05] VITALS (13 sets, daily range): BP systolic 96–166; BP diastolic 55–83; PULSE 90–117; RESP 10–15; TEMP 96–99; O2SAT 98–100
[2017-03-05] MEDS: ARTIFICIAL TEARS OPTH SOLN 15 ML BTL EACH EYE SCH ×2 (06:08→18:00)
[2017-03-05] MEDS: levETIRAcetam 500 MG/5 ML UDC NG SCH ×2 (08:32→21:00)
[2017-03-05] MEDS: LACOSAMIDE 50 MG TAB G-TUBE SCH ×2 (08:32→21:00)
[2017-03-05] MEDS: LANSOPRAZOLE SOLUTAB 30 MG TAB NG SCH (08:32)
[2017-03-05] MEDS: SODIUM CHLORIDE 0.9% FLUSH 10 ML FLUSH IV FLUSH SCH (08:32)
[2017-03-05] MEDS: METOPROLOL TARTRATE 25 MG TAB PO SCH ×2 (08:32→21:00)
[2017-03-05] MEDS: BROMOCRIPTINE MESYLATE 2.5 MG TAB PO SCH ×2 (08:32→21:00)
[2017-03-05] MEDS: DOCUSATE SODIUM 50 MG/SENNA 8.6 MG TAB PO SCH ×2 (08:33→21:00)
[2017-03-05] MEDS: BISACODYL 10 MG SUPP RECTAL SCH (08:33)
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
[2017-03-05] MEDS ORDERED: LACTATED RINGER'S 1000 ML INJ 1,000 ML IV ONE (13:21)
[2017-03-05] MEDS ORDERED: NEOSTIGMINE 3 MG/3 ML SYR IV ONE (13:21)
[2017-03-05] MEDS ORDERED: PHENYLEPH/NS 1000 MCG/10 ML SYR IV ONE (13:21)
[2017-03-05] MEDS ORDERED: ONDANSETRON HCL 4 MG/2 ML VIAL IV PUSH ONE (13:21)
[2017-03-05] MEDS ORDERED: ePHEDrine/NS 25 MG/5 ML SYR IV ONE (13:21)
[2017-03-05] MEDS ORDERED: PROPOFOL 200 MG/20 ML AMP IV ONE (13:21)
[2017-03-05] MEDS ORDERED: GELFOAM SIZE 100 ONE (14:04)
[2017-03-05] MEDS ORDERED: GENTAMICIN SULFATE 80 MG/2 ML VIAL ONE (14:04)
[2017-03-05] MEDS ORDERED: THROMBIN (TOPICAL) 5,000 UNIT VIAL ONE (14:04)
[2017-03-05] MEDS ORDERED: LIDOCAINE 1%/EPINEPHrine 1:100,000 SOLN 20 ML VIAL ONE (14:05)
[2017-03-05] MEDS ORDERED: ceFAZolin INJ 1,000 MG VIAL IV ONE (14:56)
[2017-03-05] MEDS ORDERED: VANCOMYCIN HCL 1000 MG VIAL ONE (14:58)
[2017-03-05] MEDS ORDERED: SODIUM CHLORIDE 0.9% FLUSH 5 ML FLUSH IVF PRN (18:00)
[2017-03-05] MEDS ORDERED: fentaNYL CITRATE 250 MCG/5 ML AMP ONE (18:08)
[2017-03-05] MEDS: D5-1/2 NS + KCL 20 MEQ INJ 1,000 ML IV SCH (18:45)
[2017-03-05] MEDS: ENOXAPARIN SODIUM 40 MG/0.4 ML SYRINGE SQ SCH (20:00)
[2017-03-05] MEDS ORDERED: *morphine SULFATE 8 MG/ML PERIprocedure ONLY ONE (20:09)
[2017-03-05] MEDS: SODIUM CHLORIDE 0.9% FLUSH 5 ML FLUSH IVF SCH (21:00)
[2017-03-05] MEDS: FAMOTIDINE 20 MG TAB PO SCH (21:00)
--- NOTE | 2017-03-05 22:14 | PD.OP ---
Operative Report Date of Surgery: Mar 05, 2017 Preoperative Diagnosis: (1) Closed head injury Severe traumatic brain injury Status post left decompressive craniotomy Postoperative Diagnosis: (1) Closed head injury Severe traumatic brain injury Status post left decompressive craniotomy Procedure: Replacement left craniotomy bone flap Left frontotemporoparietal duraplasty Anesthesia: Gen. Surgeon: Victor Hugo Gibson Multi Disciplined Language Analyst(s): Mery Jeffries Operation and Findings: Patient was brought to the operating room and general endotracheal anesthesia without difficulty. Llanes catheter, VICTOR MANUEL hose, and sequential compression devices were placed Lines were established by anesthesia All extremities were appropriately padded The patient was placed in supine position on the 3080 table with the head and neck in neutral position on the horseshoe headrest The head was shaved and prepped in a sterile fashion Appropriate timeout procedure was performed with all personal present and in agreement 1% Xylocaine with epinephrine was used for local infiltration over the previous left frontotemporoparietal incision site. The incision was made over the previous incision site and carried sharply down to the cranium. The periosteal elevator was used to release the scalp away from the bone margin circumferentially at the previous operative site. The Metzenbaum scissors and dissectors were used to separate the galea and temporalis muscle away from the previously released dural margins. The scalp flap was retracted with large scalp hooks. The brain was soft and pulsatile. The large dural defect created by the previous durotomy with subsequent retraction of the dura was closed with a piece of properly prepared Durepair using 4-0 Nurolon dural sutures. The edges of the previous craniotomy site were cleaned with the curettes of any debris. The previous bone flap, which had been previously stored in the operating room freezer was properly identified and opened onto the sterile field and soaked in gentamicin antibiotic solution. The bone flap was replaced with titanium maxillofacial plates and screws The wire passing drill was used to place holes in the bone flap, through which 4 -0 Nurolon dural tack up sutures were placed. A 7 mm flat fluted drain was placed in the subgaleal space and brought out through an incision in the posterior parietal region and secured to the skin with nylon suture The region was well irrigated with antibiotic irrigation prior to closure. Closure was performed with 2-0 Vicryl interrupted for the galeal and temporalis muscle fascia closures with harsha for the skin closure. A dressing of sterile Telfa , 4 x 4's, and head stockinette was placed. The patient was taken to recovery room in stable condition All counts were correct at the end of the case No specimen was sent to pathology Estimated blood loss was 150 cc Victor Hugo Gibson MD Mar 05, 2017 22:14
[2017-03-06] VITALS (14 sets, daily range): BP systolic 96–152; BP diastolic 52–78; PULSE 111–136; RESP 10–24; TEMP 97.3–101.7; O2SAT 99–100
[2017-03-06] MEDS: ARTIFICIAL TEARS OPTH SOLN 15 ML BTL EACH EYE SCH ×4 (00:05→18:00)
[2017-03-06] MEDS: D5-1/2 NS + KCL 20 MEQ INJ 1,000 ML IV SCH ×2 (03:06→12:21)
--- NOTE | 2017-03-06 05:23 | RADRPT ---
EXAM DATE/TIME: 03/06/2017 04:56 [facility] COMPARISON: CT BRAIN W/O CONTRAST, February 20, 2017, 10:38. INDICATIONS : Follow up craniotomy. RADIATION DOSE: 37.22 CTDIvol (mGy) MEDICAL HISTORY : Seizures. Traumatic brain injury SURGICAL HISTORY : Craniotomy. ENCOUNTER: Subsequent ACUITY: 1 month PAIN SCALE: Non-responsive LOCATION: cranial TECHNIQUE: Multiple contiguous axial images were obtained of the head. Using automated exposure control and adj ustment of the mA and/or kV according to patient size, radiation dose was kept as low as reasonably a chievable to obtain optimal diagnostic quality images. FINDINGS: Today's exam is compared to the prior study. The ventricles remain normal in size and midline in posi tion. The previously noted absent craniotomy flap has been replaced. There is good position of the le ft-sided craniotomy flap. There is a small amount of intracranial air characteristic of recent surger y. No focal or acute intracranial hemorrhage. No mass effect or midline shift. Stable area of old inf arction involving the right occipital lobe. No other new changes are seen compared to the prior exam. CONCLUSION: Status post replacement of the left-sided craniotomy flap. Otherwise, the CT scan of the brain is sta ble compared to prior exam. Normal postsurgical changes. Juan Carlos Daigle MD on March 06, 2017 at 5:18 Board Certified Radiologist. This report was verified electronically.
[2017-03-06] MEDS: BISACODYL 10 MG SUPP RECTAL SCH ×2 (09:00→10:10)
[2017-03-06] MEDS: SODIUM CHLORIDE 0.9% FLUSH 5 ML FLUSH IVF SCH ×2 (09:00→21:49)
[2017-03-06] MEDS ORDERED: SODIUM CHLORIDE 0.9% 1000 ML IV SCH (09:15)
[2017-03-06] MEDS ORDERED: ceFAZolin 2 GM PREMIX 50 ML - implanted port removal IV SCH (09:15)
[2017-03-06] MEDS: RESP: ALBUTEROL 2.5 MG/IPRATROPIUM 0.5 MG NEB (PRN) NEB (09:58)
[2017-03-06] MEDS: METOPROLOL TARTRATE 25 MG TAB PO SCH ×2 (10:10→18:08)
[2017-03-06] MEDS: LANSOPRAZOLE SOLUTAB 30 MG TAB NG SCH (10:10)
[2017-03-06] MEDS: DOCUSATE SODIUM 50 MG/SENNA 8.6 MG TAB PO SCH ×2 (10:11→21:48)
[2017-03-06] MEDS: levETIRAcetam 500 MG/5 ML UDC NG SCH ×2 (10:12→21:48)
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
[2017-03-06] MEDS ORDERED: SUGAMMADEX SODIUM 200 MG/2 ML VIAL IV PUSH ONE ×2 (12:08)
[2017-03-06] MEDS: BROMOCRIPTINE MESYLATE 2.5 MG TAB PO SCH ×2 (12:20→21:48)
[2017-03-06] MEDS: LACOSAMIDE 50 MG TAB G-TUBE SCH ×2 (12:20→21:48)
[2017-03-06] MEDS: ACETAMINOPHEN 325 MG TAB PO PRN (13:50)
[2017-03-06] MEDS ORDERED: FOSPHENYTOIN INJ 500 MGPE in SODIUM CHLORIDE 0.9% INJ 50 ML IV ONE (18:00)
[2017-03-06] MEDS ORDERED: GADODIAMIDE PF 287 MG/ML 5 ML VIAL (for RAD MRI) IV ONE (21:12)
[2017-03-06] MEDS: FOSPHENYTOIN SODIUM 100 MG PE/2 ML VIAL IV SCH (21:47)
[2017-03-06] MEDS: FAMOTIDINE 20 MG TAB PO SCH (21:48)
[2017-03-06] MEDS: ENOXAPARIN SODIUM 40 MG/0.4 ML SYRINGE SQ SCH (21:49)
--- NOTE | 2017-03-06 22:18 | RADRPT ---
EXAM DATE/TIME: 03/06/2017 20:35 [facility] COMPARISON: CT BRAIN W/O CONTRAST, February 20, 2017, 10:38. CT BRAIN W/O CONTRAST, December 15, 2016, 8:11. CT BRA IN W/O CONTRAST, December 26, 2016, 8:51. CTA BRAIN W 3D RECON, December 26, 2016, 9:05. CT BRAIN W /O CONTRAST, March 06, 2017, 4:56. MRI BRAIN W/O CONTRAST, January 12, 2017, 14:37. INDICATIONS : Possible seizure. CONTRAST: 9 cc Omniscan (gadodiamide) IV MEDICAL HISTORY : Seizures. SURGICAL HISTORY : Craniotomy. ENCOUNTER: Subsequent ACUITY: 1 day PAIN SCORE: Nonresponsive. LOCATION: cranial TECHNIQUE: Multiplanar, multisequence MRI of the brain was performed both prior to and following the administrat ion of paramagnetic contrast. FINDINGS: There is fluid accumulation over the mid high convexity left frontal cortex with just over a centimet er maximum thickness. There is mild associated effacement of underlying cortical sulci. Minimal subfa lcine shift is present. Signal is homogeneous and hyperintense on T2, close to isointense on flair an d hypointense on T1 which would be most consistent with minimally complicated fluid. Areas of cortical T2 prolongation in the occipital regions, right worse than left continue to evolve. Similar changes in the central zeng matter structures are less pronounced than previously. There is no abnormal parenchymal enhancement identified. Increased enhancement of the dural lining on the left as craniotomy. There is no evidence of macroscopic hemorrhage. There is nothing to suggest acute infarction. CONCLUSION: Fluid accumulation over the left frontal convexity not well seen or appreciated on CT examination. Mild associated mass effect. Paul Bob MD on March 06, 2017 at 21:57 Board Certified Radiologist. This report was verified electronically.
--- NOTE | 2017-03-06 23:58 | HHI.NSPN ---
History Interval History 03/06/17: Replacement craniotomy bone flap Exam Results Vital Signs Date Time Temp Pulse Resp B/P Pulse Ox O2 Delivery O2 Flow Rate FiO2 03/06/17 21:29 100 Trach Collar 28 03/06/17 20:00 98.8 114 24 105/63 03/06/17 19:00 6.00 Intake and Output 03/05/17 03/05/17 03/06/17 08:00 16:00 00:00 Intake Total 537 ml 2670 ml Output Total 845 ml Balance 537 ml 1825 ml Physical Examination Respirations clear Cardiac regular Abdomen soft Moderate edema left forearm and hand Scalp drain in place with mild output Incision dry and intact Patient seems quite a bit more alert today than the past 2 days, smiling occasionally and appears to grasp right hand and lift right arm to command Lab, Micro, Other Results 03/06/17 CT scan head images reviewed. No evidence of significant hematoma or mass effect post craniotomy bone flap replacement Head CT 03/06/17 0600 Signed Impressions: Service Date/Time: Monday, March 06, 2017 04:56 - CONCLUSION: Status post replacement of the left-sided craniotomy flap. Otherwise, the CT scan of the brain is stable compared to prior exam. Normal postsurgical changes. Juan Carlos Daigle MD Medical Decision Making Impression and Plan Impression: 1. Stable neurologic exam status post placement craniotomy bone flap. Postoperative CT scan head for 1417 satisfactory Plan: Discussed with patient's family in the intensive surgical care unit Continue drain Continued on chemical DVT prophylaxis Patient has some increased swelling left upper extremity. We will obtain left upper extremity ultrasound to make certain that venous thrombosis not developing. Continuing anticonvulsants per neurology Victor Hugo Gibson MD Mar 06, 2017 23:58
[2017-03-07] VITALS (14 sets, daily range): BP systolic 98–133; BP diastolic 64–85; PULSE 103–127; RESP 15–20; TEMP 98.1–100.8; O2SAT 100
[2017-03-07] MEDS: D5-1/2 NS + KCL 20 MEQ INJ 1,000 ML IV SCH ×3 (00:29→18:37)
[2017-03-07] MEDS: ARTIFICIAL TEARS OPTH SOLN 15 ML BTL EACH EYE SCH ×4 (00:30→18:00)
[2017-03-07] MEDS: METOPROLOL TARTRATE 25 MG TAB PO SCH ×3 (02:00→18:00)
[2017-03-07] MEDS: FOSPHENYTOIN SODIUM 100 MG PE/2 ML VIAL IV SCH ×3 (05:58→21:54)
[2017-03-07] MEDS: BISACODYL 10 MG SUPP RECTAL SCH (09:00)
[2017-03-07] MEDS: DOCUSATE SODIUM 50 MG/SENNA 8.6 MG TAB PO SCH ×2 (09:00→21:52)
[2017-03-07] MEDS: BROMOCRIPTINE MESYLATE 2.5 MG TAB PO SCH ×2 (09:22→21:52)
[2017-03-07] MEDS: levETIRAcetam 500 MG/5 ML UDC NG SCH (09:22)
[2017-03-07] MEDS: LACOSAMIDE 50 MG TAB G-TUBE SCH ×2 (09:22→21:52)
[2017-03-07] MEDS: SODIUM CHLORIDE 0.9% FLUSH 5 ML FLUSH IVF SCH ×2 (09:22→21:55)
[2017-03-07] MEDS: LANSOPRAZOLE SOLUTAB 30 MG TAB NG SCH (09:23)
--- NOTE | 2017-03-07 10:33 | HHI.PR ---
Subjective Remarks follow up TBI s/p bone flap 03/06/17-patient seen and examined; patient is nonverbal; s/p bone flap 03/05/17. per she has increased LUE swelling. NO report of seizure activity. Afebrile 03/07/17-patient seen and examined, nonverbal, some neurologic change overnight requiring an MRI for further examination. case discussed with patient's mom at the bedside Objective Vitals Vital Signs Date Time Temp Pulse Resp B/P Pulse Ox O2 Delivery O2 Flow Rate FiO2 03/07/17 10:00 108 03/07/17 08:58 100 T-piece 28 03/07/17 08:00 105 03/07/17 07:00 100 Trach Collar 6.00 28 Humidified 03/07/17 06:00 118 03/07/17 04:00 99.5 113 16 113/74 100 03/07/17 04:00 113 03/07/17 02:00 114 03/07/17 00:00 114 03/07/17 00:00 99.9 114 15 116/74 100 03/06/17 22:00 116 03/06/17 21:29 100 Trach Collar 28 03/06/17 20:00 98.8 114 24 105/63 100 03/06/17 20:00 115 03/06/17 19:00 100 Trach Collar 6.00 28 Humidified 03/06/17 18:00 123 03/06/17 16:00 123 03/06/17 16:00 123 03/06/17 16:00 98.3 123 14 152/78 99 03/06/17 14:00 126 03/06/17 12:00 101.7 121 16 128/61 100 03/06/17 12:00 122 03/06/17 11:10 15 I/O 03/06/17 03/06/17 03/06/17 03/07/17 03/07/17 03/07/17 07:00 15:00 23:00 07:00 15:00 23:00 Intake Total 625 ml 686 ml 535 ml 1325 ml Output Total 875 ml 1275 ml 750 ml 800 ml Balance -250 ml -589 ml -215 ml 525 ml IV Total 625 ml 675 ml 185 ml 725 ml Tube Feeding 11 ml 200 ml 400 ml Tube Irrigant 150 ml 200 ml Output Urine Total 850 ml 1275 ml 750 ml 800 ml Tube Feeding Residual Discard 0 ml Drainage Total 25 ml 0 ml 0 ml # Bowel Movements 0 0 Result Diagram: 03/04/17 0810 03/04/17 0810 Imaging Last Impressions Head CT 03/06/17 0600 Signed Impressions: Service Date/Time: Monday, March 06, 2017 04:56 - CONCLUSION: Status post replacement of the left-sided craniotomy flap. Otherwise, the CT scan of the brain is stable compared to prior exam. Normal postsurgical changes. Juan Carlos Daigle MD Brain MRI 03/06/17 0000 Signed Impressions: Service Date/Time: Monday, March 06, 2017 20:35 - CONCLUSION: Fluid accumulation over the left frontal convexity not well seen or appreciated on CT examination. Mild associated mass effect. Paul Bob MD Chest X-Ray 03/04/17 0000 Signed Impressions: Service Date/Time: Saturday, March 04, 2017 07:40 - CONCLUSION: Underinflated exam. No acute cardiopulmonary abnormality is identified. Paul Warren MD Upper Extremity Ultrasound 02/26/17 0000 Signed Impressions: Service Date/Time: February 09:35 - CONCLUSION: 1. Occlusive thrombus in the left basilic vein. 2. No evidence of deep venous thrombosis in the right upper extremity. Jesse Potts MD Objective Remarks GENERAL: Nonverbal and NAD SKIN: Warm and dry. HEAD: s/p bone flap; EYES: No scleral icterus. No injection or drainage. NECK: Supple, trachea midline. No JVD or lymphadenopathy. CARDIOVASCULAR: Regular rate and rhythm without murmurs, gallops, or rubs. RESPIRATORY: Breath sounds equal bilaterally. No accessory muscle use. GASTROINTESTINAL: Abdomen soft, non-tender, nondistended. MUSCULOSKELETAL: No cyanosis, or edema. LUE minimally swelling and increased in size BACK: Nontender without obvious deformity. No CVA tenderness. Side: Left A/P Problem List: (1) Breakthrough seizure ICD Code: G40.919 Status: Acute (2) Seizure disorder ICD Code: G40.909 Status: Acute (3) Major neurocognitive disorder as late effect of traumatic brain injury without behavioral disturbance ICD Code: S06.9X9S Status: Acute (4) Closed head injury ICD Code: S09.90XA Status: Acute (5) Subdural hematoma ICD Code: I62.00 Status: Acute (6) Pelvic fracture ICD Code: S32.9XXA Status: Acute (7) Kidney contusion ICD Code: S37.019A Status: Acute (8) Liver laceration ICD Code: S36.113A Status: Acute (9) Trauma ICD Code: T14.90 Status: Acute (10) Sinus tachycardia ICD Code: R00.0 Status: Acute (11) 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 Gibson. Brain MRI 03/06/17 noted and review with finding of Fluid accumulation over the left frontal convexity not well seen or appreciated on CT examination. Mild associated mass effect. EEG pending Low-grade fever, recurrent: Currently afebrile. tracheobronchitis secondary to increased secretions and tracheostomy. sputum culture +staph Chronic respiratory failure. Patient is tolerating T piece at 28% oxygen with good O2 saturations. Aggressive pulmonary toilet. Pulmonology following the patient. Levsin for secretions. - LUE swelling r/o DVT: Doppler pending and treat accordingly Seizure, breakthrough: Currently on Vimpat and Keppra 1000 mg twice daily as well as Phenobarbital. Monitor Levels. EEG pending Multiple pelvic fractures. Transverse process fractures, lumbar region: Continue physical therapy, occupational therapy, speech therapy Sinus tachycardia: on metoprolol 25 mg twice daily . Continue monitor heart rate Low blood pressure: Resolved s/p midodrine . Records indicate MRSA pneumonia: Patient completed vancomycin on 02/18. Patient remains afebrile, no leukocytosis to indicate active infection. GI protection with Prevacid DVT prevention: Nilson Bustillos MD Mar 07, 2017 10:33
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
--- NOTE | 2017-03-07 12:33 | HHI.NSPN ---
(Maria G Vega) Note Status Status: Progress Note (Maria G Vega) Interval History Interval History Ms. Laurent is a 22 y/o female with a history of TBI, she underwent replacement of bone flap on 03/05/[address] Gibson. She was reported to have worsened neuro status postoperatively. A CT Brain was obtained which was unremarkable, and MRI Brain showed left subdural fluid collection. 03/07: today mildly opening eyes, however not following commands (Maria G Vega) Labs, Micro, & Vital Signs Results Date Time Temp Pulse Resp B/P Pulse Ox O2 Delivery O2 Flow Rate FiO2 03/07/17 10:00 108 03/07/17 08:58 100 T-piece 28 03/07/17 08:00 105 03/07/17 08:00 100.8 124 20 104/64 100 03/07/17 07:00 100 Trach Collar 6.00 28 Humidified 03/07/17 06:00 118 03/07/17 04:00 99.5 113 16 113/74 100 03/07/17 04:00 113 03/07/17 02:00 114 03/07/17 00:00 114 03/07/17 00:00 99.9 114 15 116/74 100 03/06/17 22:00 116 03/06/17 21:29 100 Trach Collar 28 03/06/17 20:00 98.8 114 24 105/63 100 03/06/17 20:00 115 03/06/17 19:00 100 Trach Collar 6.00 28 Humidified 03/06/17 18:00 123 03/06/17 16:00 123 03/06/17 16:00 123 03/06/17 16:00 98.3 123 14 152/78 99 03/06/17 14:00 126 03/07/17 07:00 Intake Total 2546 ml Output Total 2825.0 ml Balance -279.0 ml Constitutional Vital Signs Date Time Temp Pulse Resp B/P Pulse Ox O2 Delivery O2 Flow Rate FiO2 03/07/17 10:00 108 03/07/17 08:58 100 T-piece 28 03/07/17 08:00 105 03/07/17 08:00 100.8 124 20 104/64 100 03/07/17 07:00 100 Trach Collar 6.00 28 Humidified 03/07/17 06:00 118 03/07/17 04:00 99.5 113 16 113/74 100 03/07/17 04:00 113 03/07/17 02:00 114 03/07/17 00:00 114 03/07/17 00:00 99.9 114 15 116/74 100 03/06/17 22:00 116 03/06/17 21:29 100 Trach Collar 28 03/06/17 20:00 98.8 114 24 105/63 100 03/06/17 20:00 115 03/06/17 19:00 100 Trach Collar 6.00 28 Humidified 03/06/17 18:00 123 03/06/17 16:00 123 03/06/17 16:00 123 03/06/17 16:00 98.3 123 14 152/78 99 03/06/17 14:00 126 03/07/17 07:00 Intake Total 2546 ml Output Total 2825.0 ml Balance -279.0 ml (Maria G Vega) Review of Systems/Exam Exam slightly opens eyes, does not focus or track. does not follow commands Surgical wound clean and dry, AVE drain in place to suction. CN: pupils 4 mm reactive b/l, right gaze Motor: withdraws to b/l UE and left lower extremity, right lower extremity in PODUS boot, minimal withdrawal Abdomen soft (Maria G Vega) Medications Current Medications Current Medications Medications (Trade) Dose Ordered Sig/Raji Route PRN Reason Start Time Stop Time Status Last Admin Dose Admin Acetaminophen (Tylenol) 650 mg Q4H PRN PO TEMP > 100.4 02/17/17 00:30 03/06/17 13:50 Ondansetron HCl (Zofran Inj) 4 mg Q6H PRN IVP NAUSEA OR VOMITING 02/17/17 00:30 Magnesium Hydroxide (Milk Of Magnesia Liq) 30 ml Q12H PRN PO CONSTIPATION 02/17/17 00:30 Naloxone HCl (Narcan Inj) 0.4 mg UNSCH PRN IV SEE LABEL COMMENTS 02/17/17 00:30 Miscellaneous Information Patient in critical care unit? Ass... Q361D XX 02/17/17 04:15 02/17/17 04:15 Bisacodyl (Dulcolax Supp) 10 mg DAILY RECTAL 02/18/17 09:00 02/28/17 09:57 Bromocriptine Mesylate (Parlodel) 2.5 mg Q12HR PO 02/17/17 21:00 03/07/17 09:22 Famotidine (Pepcid) 20 mg HS PO 02/17/17 21:00 03/06/17 21:48 Hyoscyamine Sulfate (Levsin) 0.125 mg Q4H PRN PO secretions 02/17/17 11:15 Ibuprofen (Motrin Liq) 200 mg Q6H PRN PO temp>101 02/17/17 11:15 02/20/17 11:10 Phenobarbital Sodium (Luminal Inj) 65 mg BID IV 02/17/17 12:00 03/07/17 09:22 Senna/Docusate Sodium (Malu-Colace) 1 tab BID PO 02/17/17 21:00 03/06/17 21:48 Enoxaparin Sodium (Lovenox Inj) 40 mg Q24H SQ 02/17/17 20:00 03/06/17 21:49 Lactulose (Lactulose Liq) 30 ml DAILY PRN PO if no bm by 1200 02/19/17 07:30 Lansoprazole (Prevacid Odt) 30 mg DAILY NG 02/19/17 09:00 03/07/17 09:23 Oxycodone HCl (Roxicodone) 5 mg Q4H PRN PEG PAIN 4-6 02/19/17 08:00 03/06/17 10:10 Artificial Tears (Tears Naturale Opth Soln) 1 drop Q6HR EACH EYE 02/22/17 19:00 03/07/17 05:58 Lacosamide (Vimpat) 50 mg BID G-TUBE 02/25/17 09:00 03/07/17 09:22 Miscellaneous (Pill Splitter) 1 ea UNSCH PRN OTHER SEE LABEL COMMENTS 03/01/17 23:45 Levetriacetam (Keppra Liq) 1,000 mg Q12HR NG 03/03/17 21:00 03/07/17 09:22 IV Flush (NS Flush) 2 ml UNSCH PRN IVF FLUSH AFTER USING IV ACCESS 03/05/17 18:00 IV Flush 2 ml 2 ml BID IVF 03/05/17 21:00 03/07/17 09:22 Potassium Chloride/Dextrose/ Sod Cl (D5-1/2 NS + KCl 20 Meq Inj) 1,000 ml @ 100 mls/hr Q10H IV 03/05/17 17:49 03/07/17 09:24 Metoprolol Tartrate (Lopressor) 25 mg Q8H PO 03/06/17 18:00 03/07/17 09:22 Fosphenytoin Sodium (Cerebyx Inj) 150 mgpe Q8HR IV 03/06/17 22:00 03/07/17 05:58 (Maria G Vega) Medical Decision Making MDM Remarks 22 y/o female with history of TBI s/p cranioplasty for replacement of bone flap on 03/05/17, she was reported to have decrease mental status POD 1, f/u MRI shows left frontotemporal subdural fluid collection, today has slight improved exam (Maria G Vega) Plan Plan Remarks f/u CT/ MRI Head reviewed dw mother bedside and over the phone cont nonsurgical mgt for now obtain f/u CT Brain in the am, further recs upon completion and review cont AVE drain to suction cont serial neuro checks f/u neuro exam nonchemical dvt prophylaxis critical care mgt (Maria G Vega) Attending Statement The exam, history, and the medical decision-making described in the above note were completed with the assistance of the mid-level provider. I reviewed and agree with the findings presented. I attest that I had a [id number] encounter with the patient on the same day, and personally performed and documented my assessment and findings in the medical record. (Nura Ko MD) Maria G Vega Mar 07, 2017 12:33 Nura Ko MD Mar 07, 2017 17:20
[2017-03-07] MEDS: ACETAMINOPHEN 325 MG TAB PO PRN (17:46)
[2017-03-07] MEDS: ENOXAPARIN SODIUM 40 MG/0.4 ML SYRINGE SQ SCH (21:52)
[2017-03-07] MEDS: FAMOTIDINE 20 MG TAB PO SCH (21:52)
[2017-03-08] VITALS (14 sets, daily range): BP systolic 101–150; BP diastolic 65–86; PULSE 98–134; RESP 12–21; TEMP 98.6–101.7; O2SAT 99–100
[2017-03-08] MEDS: METOPROLOL TARTRATE 25 MG TAB PO SCH ×3 (01:33→18:00)
[2017-03-08 04:42] LABS: PHENOBARBITAL 19.4 MCG/ML (15.0-40.0)
[2017-03-08 04:45] LABS: BICARBONATE 23.5 MEQ/L (21.0-32.0)
[2017-03-08 04:47] LABS: POTASSIUM 4.8 MEQ/L (3.5-5.1)
--- NOTE | 2017-03-08 05:10 | MG ---
cc: CARYN LUU MD Sex: F DATE OF STUDY: 03/07/2017 [id number] DATE OF : 1995 HISTORY: 22-year-old, history of traumatic brain injury, seizure activity. DESCRIPTION: Asymmetric left hemispheric slowing with posterior rhythm demonstrating a combination of theta delta frequencies at times beta. Good EEG variability reactivity. Limited driving with photic stimulation. Single lead EKG showing sinus rhythm. The patient was anterior head. INTERPRETATION Mild to moderate encephalopathy with asymmetric left hemispheric slowing with good EEG variability reactivity, however. Clinical correlation. Caryn Luu MD MG/RO /11:28 PM /3:58 AM
[2017-03-08] MEDS: ARTIFICIAL TEARS OPTH SOLN 15 ML BTL EACH EYE SCH ×5 (06:00→23:46)
[2017-03-08] MEDS: FOSPHENYTOIN SODIUM 100 MG PE/2 ML VIAL IV SCH ×3 (06:17→21:29)
[2017-03-08] MEDS: D5-1/2 NS + KCL 20 MEQ INJ 1,000 ML IV SCH ×3 (06:18→23:47)
--- NOTE | 2017-03-08 06:30 | RADRPT ---
EXAM DATE/TIME: 03/08/2017 05:29 [facility] COMPARISON: CT BRAIN W/O CONTRAST, March 06, 2017, 4:56. INDICATIONS : Follow up bleed. RADIATION DOSE: 56.35 CTDIvol (mGy) MEDICAL HISTORY : Seizures. SURGICAL HISTORY : Craniotomy. ENCOUNTER: Subsequent ACUITY: 1 month PAIN SCALE: Non-responsive LOCATION: cranial TECHNIQUE: Multiple contiguous axial images were obtained of the head. Using automated exposure control and adj ustment of the mA and/or kV according to patient size, radiation dose was kept as low as reasonably a chievable to obtain optimal diagnostic quality images. FINDINGS: Left frontal temporal craniotomy is present there is increasing fluid beneath the flap now measuring maximally 11 mm in thickness. There is mass effect on left frontal horn but no significant midline sh ift. There is old infarct involving the right thalamus. There is also an old infarct involving the me sial right occipital lobe. CONCLUSION: 1. Comparison with the prior study there is increasing subdural fluid beneath the flap measuring maxi mum of millimeters in thickness. 2. No acute hemorrhage is identified Wander Brooke MD on March 08, 2017 at 6:26 Board Certified Radiologist. This report was verified electronically.
[2017-03-08 07:20] LABS: AUTOMATED NEUTROPHIL # 6.6 TH/MM3 (1.8-7.7); BASOPHIL # 0.1 TH/MM3 (0-0.2); BASOPHIL % 0.6 % (0.0-2.0); EOSINOPHIL # 0.2 TH/MM3 (0-0.4); EOSINOPHIL % 2.1 % (0.0-4.0); HEMATOCRIT 28.8 % (35.0-46.0); HEMO FLAGS DIFF FINAL; LYMPH % 16.2 % (9.0-44.0); LYMPHOCYTE # 1.5 TH/MM3 (1.0-4.8); MEAN CELL VOLUME 84.5 FL (80.0-100.0); MEAN CORPUSCULAR HEMOGLOBIN 28.4 PG (27.0-34.0); MEAN CORPUSCULAR HGB CONC 33.6 % (32.0-36.0); MONO % 9.7 % (0.0-8.0); NEUT % 71.4 % (16.0-70.0); PLATELET COUNT 249 TH/MM3 (150-450); RED CELL DISTRIBUTION WIDTH 15.4 % (11.6-17.2); WHITE BLOOD COUNT 9.2 TH/MM3 (4.0-11.0)
[2017-03-08] MEDS: BROMOCRIPTINE MESYLATE 2.5 MG TAB PO SCH ×2 (08:59→20:57)
[2017-03-08] MEDS: DOCUSATE SODIUM 50 MG/SENNA 8.6 MG TAB PO SCH ×2 (08:59→20:58)
[2017-03-08] MEDS: LANSOPRAZOLE SOLUTAB 30 MG TAB NG SCH (08:59)
[2017-03-08] MEDS: LACOSAMIDE 50 MG TAB G-TUBE SCH ×2 (08:59→20:57)
[2017-03-08] MEDS: ACETAMINOPHEN 325 MG TAB PO PRN ×3 (09:00→21:29)
[2017-03-08] MEDS: BISACODYL 10 MG SUPP RECTAL SCH (09:00)
[2017-03-08] MEDS: SODIUM CHLORIDE 0.9% FLUSH 5 ML FLUSH IVF SCH ×2 (09:00→20:57)
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
[2017-03-08] MEDS ORDERED: FOSPHENYTOIN INJ 1,000 MGPE in SODIUM CHLORIDE 0.9% INJ 50 ML IV ONE (11:00)
[2017-03-08 11:10] LABS: BACTERIA, URINE RARE /hpf; BLOOD, URINE NEG (NEG); GLUCOSE,URINE 150 mg/dL (NEG); KETONE, URINE NEG (NEG); MUCUS URINE FEW /lpf (OCC); NITRITE,URINE NEG (NEG); PH, URINE 7.5 (5.0-8.5); TRANSITIONAL EPI CELLS, URINE <1 /hpf; URINE COLOR YELLOW (YELLW/STRAW)
[2017-03-08 11:11] LABS: COMMENT (UR) CULT NOT INDICATED; CULTURE IF INDICATED CULT NOT INDICATED
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
[2017-03-08] MEDS ORDERED: SODIUM CHLOR 0.9% 250 ML INJ 250 ML IV ONE ×2 (14:15→18:30)
[2017-03-08] MEDS: ENOXAPARIN SODIUM 40 MG/0.4 ML SYRINGE SQ SCH (20:56)
[2017-03-08] MEDS: FAMOTIDINE 20 MG TAB PO SCH (20:57)
[2017-03-09] VITALS (14 sets, daily range): BP systolic 110–125; BP diastolic 59–83; PULSE 103–134; RESP 14–21; TEMP 98.5–100.1; O2SAT 99–100
[2017-03-09] MEDS: METOPROLOL TARTRATE 25 MG TAB PO SCH ×3 (02:33→18:30)
[2017-03-09 05:35] LABS: PHENOBARBITAL 17.8 MCG/ML (15.0-40.0)
[2017-03-09] MEDS: FOSPHENYTOIN SODIUM 100 MG PE/2 ML VIAL IV SCH ×3 (05:53→21:14)
[2017-03-09] MEDS: ARTIFICIAL TEARS OPTH SOLN 15 ML BTL EACH EYE SCH ×3 (05:53→18:00)
[2017-03-09] MEDS: D5-1/2 NS + KCL 20 MEQ INJ 1,000 ML IV SCH ×2 (08:39→21:06)
[2017-03-09] MEDS: ACETAMINOPHEN 325 MG TAB PO PRN ×5 (08:40→21:14)
[2017-03-09] MEDS: LANSOPRAZOLE SOLUTAB 30 MG TAB NG SCH (08:41)
[2017-03-09] MEDS: BROMOCRIPTINE MESYLATE 2.5 MG TAB PO SCH ×2 (08:41→21:06)
[2017-03-09] MEDS: LACOSAMIDE 50 MG TAB G-TUBE SCH ×2 (08:42→21:06)
[2017-03-09] MEDS: DOCUSATE SODIUM 50 MG/SENNA 8.6 MG TAB PO SCH ×2 (09:00→21:06)
[2017-03-09] MEDS: BISACODYL 10 MG SUPP RECTAL SCH (09:00)
[2017-03-09] MEDS: SODIUM CHLORIDE 0.9% FLUSH 5 ML FLUSH IVF SCH ×2 (09:00→21:06)
--- NOTE | 2017-03-09 10:06 | HHI.PR ---
Subjective Remarks follow up TBI s/p bone flap 03/06/17-patient seen and examined; patient is nonverbal; s/p bone flap 03/05/17. per she has increased LUE swelling. NO report of seizure activity. Afebrile 03/07/17-patient seen and examined, nonverbal, some neurologic change overnight requiring an MRI for further examination. case discussed with patient's mom at the bedside 03/08/17-patient seen and examined, nonverbal, per mother's account patient was all wet this morning and spiking fever, repeat brain MRI report discussed with mother 03/09/17-patient seen and examined, spiking low-grade temp, nonverbal. BP normotensive Objective Vitals Vital Signs Date Time Temp Pulse Resp B/P Pulse Ox O2 Delivery O2 Flow Rate FiO2 03/09/17 08:00 125 03/09/17 07:00 100 Trach Collar 6.00 28 Humidified 03/09/17 06:00 110 03/09/17 04:00 98.7 114 14 115/72 100 03/09/17 04:00 134 03/09/17 02:00 134 03/09/17 00:00 98.5 112 14 125/75 100 03/09/17 00:00 134 03/08/17 22:00 134 03/08/17 20:55 100 Trach Collar 5.00 28 03/08/17 20:00 124 03/08/17 20:00 98.6 128 15 150/86 100 03/08/17 19:00 100 Trach Collar 6.00 28 Humidified 03/08/17 18:00 98 03/08/17 16:00 100.4 122 15 101/71 100 03/08/17 16:00 122 03/08/17 14:00 109 03/08/17 12:00 99.4 110 21 124/73 100 03/08/17 12:00 110 I/O 03/08/17 03/08/17 03/08/17 03/09/17 03/09/17 03/09/17 07:00 15:00 23:00 07:00 15:00 23:00 Intake Total 1030 ml 1645 ml 1730 ml 1450 ml Output Total 900 ml 1305 ml 1000 ml 1250 ml Balance 130 ml 340 ml 730 ml 200 ml IV Total 585 ml 1044 ml 1070 ml 750 ml Tube Feeding 325 ml 541 ml 460 ml 500 ml Tube Irrigant 120 ml 60 ml 200 ml 200 ml Output Urine Total 900 ml 1300 ml 1000 ml 1250 ml Drainage Total 0 ml 5 ml 0 ml 0 ml # Bowel Movements 1 2 0 Result Diagram: 03/08/17 0700 03/08/17 0323 Imaging Last Impressions Head CT 03/08/17 0800 Signed Impressions: Service Date/Time: Wednesday, March 08, 2017 05:29 - CONCLUSION: 1. Comparison with the prior study there is increasing subdural fluid beneath the flap measuring maximum of millimeters in thickness. 2. No acute hemorrhage is identified Wander Brooke MD Upper Extremity Ultrasound 03/07/17 0000 Signed Impressions: Service Date/Time: Tuesday, March 07, 2017 10:26 - CONCLUSION: There is thrombus within the basilic vein and the other veins are patent. Kyle Gonzales MD Brain MRI 03/06/17 0000 Signed Impressions: Service Date/Time: Monday, March 06, 2017 20:35 - CONCLUSION: Fluid accumulation over the left frontal convexity not well seen or appreciated on CT examination. Mild associated mass effect. Paul Bob MD Chest X-Ray 03/04/17 0000 Signed Impressions: Service Date/Time: Saturday, March 04, 2017 07:40 - CONCLUSION: Underinflated exam. No acute cardiopulmonary abnormality is identified. Paul Warren MD Objective Remarks GENERAL: Nonverbal and NAD SKIN: Warm and dry. HEAD: s/p bone flap; EYES: No scleral icterus. No injection or drainage. NECK: Supple, trachea midline. No JVD or lymphadenopathy. CARDIOVASCULAR: Regular rate and rhythm without murmurs, gallops, or rubs. RESPIRATORY: Breath sounds equal bilaterally. No accessory muscle use. GASTROINTESTINAL: Abdomen soft, non-tender, nondistended. MUSCULOSKELETAL: No cyanosis, or edema. LUE minimally swelling and increased in size BACK: Nontender without obvious deformity. No CVA tenderness. Side: Left A/P Problem List: (1) Breakthrough seizure ICD Code: G40.919 Status: Acute (2) Seizure disorder ICD Code: G40.909 Status: Acute (3) Major neurocognitive disorder as late effect of traumatic brain injury without behavioral disturbance ICD Code: S06.9X9S Status: Acute (4) Closed head injury ICD Code: S09.90XA Status: Acute (5) Subdural hematoma ICD Code: I62.00 Status: Acute (6) Pelvic fracture ICD Code: S32.9XXA Status: Acute (7) Kidney contusion ICD Code: S37.019A Status: Acute (8) Liver laceration ICD Code: S36.113A Status: Acute (9) Trauma ICD Code: T14.90 Status: Acute (10) Sinus tachycardia ICD Code: R00.0 Status: Acute (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 Gibson. Repeat Brain MRI 03/08/17 noted and review with finding of increasing subdural fluid beneath the flap measuring maximum of millimeters in thickness. Management per neurosurgery Low-grade fever, recurrent: Maybe secondary to postop fever, recheck blood and urine culture as well as sputum culture. Consider empiric antibiotic therapy Chronic respiratory failure. Patient is tolerating T piece at 28% oxygen with good O2 saturations. Aggressive pulmonary toilet. Pulmonology following the patient. Levsin for secretions. - LUE swelling r/o DVT: Doppler pending and treat accordingly Seizure, breakthrough: Currently on Vimpat and iv Cerebryx as well as Phenobarbital. Monitor Levels. s/p Keppra . EEG noted Multiple pelvic fractures. Transverse process fractures, lumbar region: Continue physical therapy, occupational therapy, speech therapy Sinus tachycardia: on metoprolol 25 mg twice daily . Continue monitor heart rate Low blood pressure: Patient was given orders 500 cc normal saline yesterday . If no improvement today will resume Midodrine Records indicate MRSA pneumonia: Patient completed vancomycin on 02/18. . GI protection with Prevacid DVT prevention: Nilson Bustillos MD Mar 09, 2017 10:06
[2017-03-09] MEDS: RESP: ALBUTEROL 2.5 MG/IPRATROPIUM 0.5 MG NEB (PRN) NEB (10:27)
--- NOTE | 2017-03-09 12:30 | HHI.NSPN ---
([place]) Note Status Status: Progress Note ([place]) Interval History Interval History Ms. Laruent is a 22 y/o female with a history of TBI 03/05: To OR for: Replacement left craniotomy bone flap Left frontotemporoparietal duraplasty 03/06: POD # 1 replacement craniotomy bone flap 03/07: today mildly opening eyes, however not following commands 03/08: f/u CT Head completed, more awake today 03/09: Patient opens eyes spontaneously but not tracking ([place]) Labs, Micro, & Vital Signs Results Date Time Temp Pulse Resp B/P Pulse Ox O2 Delivery O2 Flow Rate FiO2 03/09/17 10:06 100 Trach Collar 8.00 28 03/09/17 10:00 111 03/09/17 08:00 125 03/09/17 08:00 100.1 128 21 125/66 100 03/09/17 07:00 100 Trach Collar 6.00 28 Humidified 03/09/17 06:00 110 03/09/17 04:00 98.7 114 14 115/72 100 03/09/17 04:00 134 03/09/17 02:00 134 03/09/17 00:00 98.5 112 14 125/75 100 03/09/17 00:00 134 03/08/17 22:00 134 03/08/17 20:55 100 Trach Collar 5.00 28 03/08/17 20:00 124 03/08/17 20:00 98.6 128 15 150/86 100 03/08/17 19:00 100 Trach Collar 6.00 28 Humidified 03/08/17 18:00 98 03/08/17 16:00 100.4 122 15 101/71 100 03/08/17 16:00 122 03/08/17 14:00 109 03/08/17 12:00 99.4 110 21 124/73 100 03/08/17 12:00 110 03/09/17 07:00 Intake Total 4825 ml Output Total 3555 ml Balance 1270 ml Constitutional Vital Signs Date Time Temp Pulse Resp B/P Pulse Ox O2 Delivery O2 Flow Rate FiO2 03/09/17 10:06 100 Trach Collar 8.00 28 03/09/17 10:00 111 03/09/17 08:00 125 03/09/17 08:00 100.1 128 21 125/66 100 03/09/17 07:00 100 Trach Collar 6.00 28 Humidified 03/09/17 06:00 110 03/09/17 04:00 98.7 114 14 115/72 100 03/09/17 04:00 134 03/09/17 02:00 134 03/09/17 00:00 98.5 112 14 125/75 100 03/09/17 00:00 134 03/08/17 22:00 134 03/08/17 20:55 100 Trach Collar 5.00 28 03/08/17 20:00 124 03/08/17 20:00 98.6 128 15 150/86 100 03/08/17 19:00 100 Trach Collar 6.00 28 Humidified 03/08/17 18:00 98 03/08/17 16:00 100.4 122 15 101/71 100 03/08/17 16:00 122 03/08/17 14:00 109 03/08/17 12:00 99.4 110 21 124/73 100 03/08/17 12:00 110 03/09/17 07:00 Intake Total 4825 ml Output Total 3555 ml Balance 1270 ml ([place]) Review of Systems/Exam ROS Unable to obtain ROS due to patient's mental status. Exam Opens eyes spontaneously Does not focus or track Does not follow commands Surgical incision well approximated with harsha intact, no evident drainage, erythema or streaking AVE drain with scant sanguinous drainage to bulb suction No evident movement of extremities noted On trach collar ([place]) Medications Current Medications Current Medications Medications (Trade) Dose Ordered Sig/Raji Route Start Time Stop Time Status Last Admin (Tylenol) 650 mg Q4H PRN PO 02/17/17 00:30 03/09/17 08:40 (Zofran Inj) 4 mg Q6H PRN IVP 02/17/17 00:30 (Milk Of Magnesia Liq) 30 ml Q12H PRN PO 02/17/17 00:30 (Narcan Inj) 0.4 mg UNSCH PRN IV 02/17/17 00:30 Miscellaneous Information Patient in critical care unit? Ass... Q361D XX 02/17/17 04:15 02/17/17 04:15 (Dulcolax Supp) 10 mg DAILY RECTAL 02/18/17 09:00 02/28/17 09:57 (Parlodel) 2.5 mg Q12HR PO 02/17/17 21:00 03/09/17 08:41 (Pepcid) 20 mg HS PO 02/17/17 21:00 03/08/17 20:57 (Levsin) 0.125 mg Q4H PRN PO 02/17/17 11:15 (Motrin Liq) 200 mg Q6H PRN PO 02/17/17 11:15 02/20/17 11:10 (Luminal Inj) 65 mg BID IV 02/17/17 12:00 03/09/17 08:41 (Malu-Colace) 1 tab BID PO 02/17/17 21:00 03/08/17 08:59 (Lovenox Inj) 40 mg Q24H SQ 02/17/17 20:00 03/08/17 20:56 (Lactulose Liq) 30 ml DAILY PRN PO 02/19/17 07:30 (Prevacid Odt) 30 mg DAILY NG 02/19/17 09:00 03/09/17 08:41 (Roxicodone) 5 mg Q4H PRN PEG 02/19/17 08:00 03/06/17 10:10 (Tears Naturale Opth Soln) 1 drop Q6HR EACH EYE 02/22/17 19:00 03/09/17 08:39 (Vimpat) 50 mg BID G-TUBE 02/25/17 09:00 03/09/17 08:42 (Pill Splitter) 1 ea UNSCH PRN OTHER 03/01/17 23:45 (NS Flush) 2 ml UNSCH PRN IVF 03/05/17 18:00 IV Flush 2 ml 2 ml BID IVF 03/05/17 21:00 03/09/17 09:00 (D5-1/2 NS + KCl 20 Meq Inj) 1,000 ml @ 100 mls/hr Q10H IV 03/05/17 17:49 4/17/17 08:39 (Lopressor) 25 mg Q8H PO 03/06/17 18:00 03/09/17 10:02 (Cerebyx Inj) 150 mgpe Q8HR IV 03/06/17 22:00 03/09/17 05:53 ([place]) Medical Decision Making MDM Remarks 22 y/o fematle with a history of TBI POD # 4 s/p cranioplasty for bone flap replacement Not following commands & no movement of extremities noted but does have spontaneous eye opening Imaging demonstrated post-op fluid collection between bone flap and artificial dura w/o any midline shift ([place]) Plan Plan Remarks Discussed plan of care with patient's who verbalised his understanding, questions answered. AVE drain removed Continue neuro checks Continue mechanical DVT prophylaxis Continue critical care mgmt per [facility] Anticipate patient will be able to be transferred to a regular med/surg floor tomorrow from NSGY's perspective Plan for staple removal ([place]) Attending Statement Patient seen and examined by the undersigned today. Discussed with patient's at bedside Drain discontinued Continue to observe small subdural effusion. (Victor Hugo Gibson MD) [place] Mar 09, 2017 12:30 Victor Hugo Gibson MD Mar 09, 2017 12:35
[2017-03-09] MEDS: FAMOTIDINE 20 MG TAB PO SCH (21:06)
[2017-03-09] MEDS: ENOXAPARIN SODIUM 40 MG/0.4 ML SYRINGE SQ SCH (21:55)
[2017-03-10] VITALS (14 sets, daily range): BP systolic 105–128; BP diastolic 55–78; PULSE 95–129; RESP 14–36; TEMP 98.3–100.3; O2SAT 98–100
[2017-03-10] MEDS: ARTIFICIAL TEARS OPTH SOLN 15 ML BTL EACH EYE SCH ×4 (01:17→17:14)
[2017-03-10] MEDS: METOPROLOL TARTRATE 25 MG TAB PO SCH ×3 (01:44→17:13)
[2017-03-10] MEDS: IBUPROFEN SUSP 100 MG/5 ML UDC PO PRN ×2 (01:45→08:11)
[2017-03-10] MEDS: ACETAMINOPHEN 325 MG TAB PO PRN (04:12)
[2017-03-10 05:06] LABS: PHENOBARBITAL 15.1 MCG/ML (15.0-40.0)
[2017-03-10] MEDS: FOSPHENYTOIN SODIUM 100 MG PE/2 ML VIAL IV SCH ×3 (06:18→22:53)
[2017-03-10] MEDS: DOCUSATE SODIUM 50 MG/SENNA 8.6 MG TAB PO SCH ×2 (08:12→19:29)
[2017-03-10] MEDS: BROMOCRIPTINE MESYLATE 2.5 MG TAB PO SCH ×2 (08:12→19:28)
[2017-03-10] MEDS: D5-1/2 NS + KCL 20 MEQ INJ 1,000 ML IV SCH ×2 (08:12→17:13)
[2017-03-10] MEDS: BISACODYL 10 MG SUPP RECTAL SCH (08:12)
[2017-03-10] MEDS: LACOSAMIDE 50 MG TAB G-TUBE SCH ×2 (08:12→19:28)
[2017-03-10] MEDS: SODIUM CHLORIDE 0.9% FLUSH 5 ML FLUSH IVF SCH ×2 (08:12→19:29)
[2017-03-10] MEDS: LANSOPRAZOLE SOLUTAB 30 MG TAB NG SCH (08:12)
--- NOTE | 2017-03-10 12:27 | HHI.PR ---
Subjective Remarks follow up TBI s/p bone flap 03/06/17-patient seen and examined; patient is nonverbal; s/p bone flap 03/05/17. per she has increased LUE swelling. NO report of seizure activity. Afebrile 03/07/17-patient seen and examined, nonverbal, some neurologic change overnight requiring an MRI for further examination. case discussed with patient's mom at the bedside 03/08/17-patient seen and examined, nonverbal, per mother's account patient was all wet this morning and spiking fever, repeat brain MRI report discussed with mother 03/09/17-patient seen and examined, spiking low-grade temp, nonverbal. BP normotensive 03/10/17-patient seen and examined, afebrile, no new neurologic finding. Discussed with by the bedside. Objective Vitals Vital Signs Date Time Temp Pulse Resp B/P Pulse Ox O2 Delivery O2 Flow Rate FiO2 03/10/17 12:00 112 03/10/17 10:00 103 03/10/17 08:00 98.9 95 25 105/55 100 03/10/17 08:00 95 03/10/17 07:28 98 T-piece 28 03/10/17 07:00 100 T-Piece 28 Humidified 03/10/17 06:00 116 03/10/17 04:00 115 03/10/17 04:00 98.9 115 24 118/78 100 03/10/17 02:00 101 03/10/17 00:00 98.7 120 36 121/71 100 03/10/17 00:00 120 03/09/17 22:00 103 03/09/17 20:33 99 T-piece 5.00 28 03/09/17 20:00 118 03/09/17 20:00 99.8 123 21 119/83 100 03/09/17 19:00 100 T-Piece 28 Humidified 03/09/17 18:00 119 03/09/17 16:00 99.2 119 19 110/59 100 03/09/17 16:00 119 03/09/17 14:54 24 03/09/17 14:00 130 I/O 03/09/17 03/09/17 03/09/17 03/10/17 03/10/17 03/10/17 07:00 15:00 23:00 07:00 15:00 23:00 Intake Total 1450 ml 1689 ml 1062 ml 1188 ml Output Total 1250 ml 1550 ml 1300 ml 700 ml Balance 200 ml 139 ml -238 ml 488 ml Intake Oral 60 ml IV Total 750 ml 1035 ml 478 ml 568 ml Tube Feeding 500 ml 554 ml 464 ml 560 ml Tube Irrigant 200 ml 100 ml Other 120 ml Output Urine Total 1250 ml 1550 ml 1300 ml 700 ml Drainage Total 0 ml 0 ml # Bowel Movements 0 1 0 Result Diagram: 03/08/17 0700 03/08/17 0323 Objective Remarks GENERAL: Nonverbal and NAD SKIN: Warm and dry. HEAD: s/p bone flap; EYES: No scleral icterus. No injection or drainage. NECK: Supple, trachea midline. No JVD or lymphadenopathy. CARDIOVASCULAR: Regular rate and rhythm without murmurs, gallops, or rubs. RESPIRATORY: Breath sounds equal bilaterally. No accessory muscle use. GASTROINTESTINAL: Abdomen soft, non-tender, nondistended. MUSCULOSKELETAL: No cyanosis, or edema. LUE minimally swelling and increased in size BACK: Nontender without obvious deformity. No CVA tenderness. Side: Left A/P Problem List: (1) Breakthrough seizure ICD Code: G40.919 Status: Acute (2) Seizure disorder ICD Code: G40.909 Status: Acute (3) Major neurocognitive disorder as late effect of traumatic brain injury without behavioral disturbance ICD Code: S06.9X9S Status: Acute (4) Closed head injury ICD Code: S09.90XA Status: Acute (5) Subdural hematoma ICD Code: I62.00 Status: Acute (6) Pelvic fracture ICD Code: S32.9XXA Status: Acute (7) Kidney contusion ICD Code: S37.019A Status: Acute (8) Liver laceration ICD Code: S36.113A Status: Acute (9) Trauma ICD Code: T14.90 Status: Acute (10) Sinus tachycardia ICD Code: R00.0 Status: Acute (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 Arthur. Repeat Brain MRI 03/08/17 noted and review with finding of increasing subdural fluid beneath the flap measuring maximum of millimeters in thickness. Management per neurosurgery Low-grade fever, recurrent: Currently afebrile Chronic respiratory failure. Patient is tolerating T piece at 28% oxygen with good O2 saturations. Aggressive pulmonary toilet. Pulmonology following the patient. Levsin for secretions. - LUE swelling r/o DVT: Doppler pending and treat accordingly Seizure, breakthrough: Currently on Vimpat and iv Cerebryx as well as Phenobarbital. Monitor Levels. s/p Keppra . EEG noted Multiple pelvic fractures. Transverse process fractures, lumbar region: Continue physical therapy, occupational therapy, speech therapy Sinus tachycardia: on metoprolol 25 mg twice daily . Continue monitor heart rate Low blood pressure: Currently normotensive. If no improvement today will resume Midodrine Records indicate MRSA pneumonia: Patient completed vancomycin on 02/18. . GI protection with Prevacid DVT prevention: Nilson Bustillos MD Mar 10, 2017 12:27
--- NOTE | 2017-03-10 13:36 | HHI.NSPN ---
([place]) Note Status Status: Progress Note ([place]) Interval History Interval History Ms. Laurent is a 22 y/o female with a history of TBI 03/05: To OR for: Replacement left craniotomy bone flap Left frontotemporoparietal duraplasty 03/06: POD # 1 replacement craniotomy bone flap 03/07: today mildly opening eyes, however not following commands 03/08: f/u CT Head completed, more awake today 03/09: Patient opens eyes spontaneously but not tracking 03/10: Patient opens eyes to noxious stimuli, Nursing reports she is more responsive to than staff ([place]) Labs, Micro, & Vital Signs Results Date Time Temp Pulse Resp B/P Pulse Ox O2 Delivery O2 Flow Rate FiO2 03/10/17 12:00 98.3 112 15 108/59 100 03/10/17 12:00 112 03/10/17 10:00 103 03/10/17 08:00 98.9 95 25 105/55 100 03/10/17 08:00 95 03/10/17 07:28 98 T-piece 28 03/10/17 07:00 100 T-Piece 28 Humidified 03/10/17 06:00 116 03/10/17 04:00 115 03/10/17 04:00 98.9 115 24 118/78 100 03/10/17 02:00 101 03/10/17 00:00 98.7 120 36 121/71 100 03/10/17 00:00 120 03/09/17 22:00 103 03/09/17 20:33 99 T-piece 5.00 28 03/09/17 20:00 118 03/09/17 20:00 99.8 123 21 119/83 100 03/09/17 19:00 100 T-Piece 28 Humidified 03/09/17 18:00 119 03/09/17 16:00 99.2 119 19 110/59 100 03/09/17 16:00 119 03/09/17 14:54 24 03/09/17 14:00 130 03/10/17 07:00 Intake Total 3939 ml Output Total 3550 ml Balance 389 ml Constitutional Vital Signs Date Time Temp Pulse Resp B/P Pulse Ox O2 Delivery O2 Flow Rate FiO2 03/10/17 12:00 98.3 112 15 108/59 100 03/10/17 12:00 112 03/10/17 10:00 103 03/10/17 08:00 98.9 95 25 105/55 100 03/10/17 08:00 95 03/10/17 07:28 98 T-piece 28 03/10/17 07:00 100 T-Piece 28 Humidified 03/10/17 06:00 116 03/10/17 04:00 115 03/10/17 04:00 98.9 115 24 118/78 100 03/10/17 02:00 101 03/10/17 00:00 98.7 120 36 121/71 100 03/10/17 00:00 120 03/09/17 22:00 103 03/09/17 20:33 99 T-piece 5.00 28 03/09/17 20:00 118 03/09/17 20:00 99.8 123 21 119/83 100 03/09/17 19:00 100 T-Piece 28 Humidified 03/09/17 18:00 119 03/09/17 16:00 99.2 119 19 110/59 100 03/09/17 16:00 119 03/09/17 14:54 24 03/09/17 14:00 130 03/10/17 07:00 Intake Total 3939 ml Output Total 3550 ml Balance 389 ml ([place]) Review of Systems/Exam ROS Unable to obtain ROS due to patient's mental status. Exam Opens eyes to noxious stimuli Does not focus or track Does not follow commands Surgical incision well approximated with harsha intact, no evident drainage, erythema or streaking AVE drain without any evident drainage, erythema or streaking Appears to withdraw left side extremities to noxious stimuli although trace movement possibly noted to right On trach collar ([place]) Medications Current Medications Current Medications Medications (Trade) Dose Ordered Sig/Raji Route Start Time Stop Time Status Last Admin (Tylenol) 650 mg Q4H PRN PO 02/17/17 00:30 03/10/17 04:12 (Zofran Inj) 4 mg Q6H PRN IVP 02/17/17 00:30 (Milk Of Magnesia Liq) 30 ml Q12H PRN PO 02/17/17 00:30 (Narcan Inj) 0.4 mg UNSCH PRN IV 02/17/17 00:30 Miscellaneous Information Patient in critical care unit? Ass... Q361D XX 02/17/17 04:15 02/17/17 04:15 (Dulcolax Supp) 10 mg DAILY RECTAL 02/18/17 09:00 03/10/17 08:12 (Parlodel) 2.5 mg Q12HR PO 02/17/17 21:00 03/10/17 08:12 (Pepcid) 20 mg HS PO 02/17/17 21:00 03/09/17 21:06 (Levsin) 0.125 mg Q4H PRN PO 02/17/17 11:15 (Motrin Liq) 200 mg Q6H PRN PO 02/17/17 11:15 03/10/17 08:11 (Luminal Inj) 65 mg BID IV 02/17/17 12:00 03/10/17 08:13 (Malu-Colace) 1 tab BID PO 02/17/17 21:00 03/10/17 08:12 (Lovenox Inj) 40 mg Q24H SQ 02/17/17 20:00 03/09/17 21:55 (Lactulose Liq) 30 ml DAILY PRN PO 02/19/17 07:30 (Prevacid Odt) 30 mg DAILY NG 02/19/17 09:00 03/10/17 08:12 (Roxicodone) 5 mg Q4H PRN PEG 02/19/17 08:00 03/06/17 10:10 (Tears Naturale Opth Soln) 1 drop Q6HR EACH EYE 02/22/17 19:00 03/10/17 11:33 (Vimpat) 50 mg BID G-TUBE 02/25/17 09:00 03/10/17 08:12 (Pill Splitter) 1 ea UNSCH PRN OTHER 03/01/17 23:45 (NS Flush) 2 ml UNSCH PRN IVF 03/05/17 18:00 IV Flush 2 ml 2 ml BID IVF 03/05/17 21:00 03/10/17 08:12 (D5-1/2 NS + KCl 20 Meq Inj) 1,000 ml @ 100 mls/hr Q10H IV 03/05/17 17:49 03/10/17 08:12 (Lopressor) 25 mg Q8H PO 03/06/17 18:00 03/10/17 09:46 (Cerebyx Inj) 150 mgpe Q8HR IV 03/06/17 22:00 03/10/17 06:18 ([place]) Medical Decision Making MDM Remarks 22 y/o fematle with a history of TBI POD # 5 s/p cranioplasty for bone flap replacement Opens eyes to noxious stimuli, appears to withdraw to noxious stimuli on left although appears to have trace movement on right Imaging on demonstrated post-op fluid collection between bone flap and artificial dura w/o any midline shift ([place]) Plan Plan Remarks Discussed plan of care with patient's who verbalised his understanding, no questions asked. Continue neuro checks Continue mechanical DVT prophylaxis Continue critical care mgmt per [facility] Assistant Patient may be transferred to a regular med/surg floor from NSGY's perspective Plan for staple removal ([place]) Attending Statement I have personally seen and examined the patient on the date of this note. Pertinent documentation and study results have been reviewed by the undersigned. I have personally developed the treatment plan and performed medical decision making. Agree with findings, exam, and treatment plan as noted above. Plan transferred to regular floor today. Continue PT/OT (Victor Hugo Gibson MD) [place] Mar 10, 2017 13:36 Victor Hugo Gibson MD Mar 10, 2017 18:31
[2017-03-10] MEDS: ENOXAPARIN SODIUM 40 MG/0.4 ML SYRINGE SQ SCH (19:28)
[2017-03-10] MEDS: FAMOTIDINE 20 MG TAB PO SCH (19:28)
[2017-03-11] VITALS (12 sets, daily range): BP systolic 104–139; BP diastolic 59–98; PULSE 74–124; RESP 12–18; TEMP 96.4–99.8; O2SAT 100
[2017-03-11] MEDS: ARTIFICIAL TEARS OPTH SOLN 15 ML BTL EACH EYE SCH ×4 (01:23→17:28)
[2017-03-11] MEDS: METOPROLOL TARTRATE 25 MG TAB PO SCH ×3 (01:31→17:28)
[2017-03-11] MEDS: ACETAMINOPHEN 325 MG TAB PO PRN (03:48)
[2017-03-11] MEDS: D5-1/2 NS + KCL 20 MEQ INJ 1,000 ML IV SCH ×2 (03:48→13:35)
[2017-03-11] MEDS: FOSPHENYTOIN SODIUM 100 MG PE/2 ML VIAL IV SCH ×2 (06:10→13:35)
[2017-03-11] MEDS: LACOSAMIDE 50 MG TAB G-TUBE SCH ×2 (08:05→20:20)
[2017-03-11] MEDS: LANSOPRAZOLE SOLUTAB 30 MG TAB NG SCH (08:05)
[2017-03-11] MEDS: BROMOCRIPTINE MESYLATE 2.5 MG TAB PO SCH ×2 (08:05→20:26)
[2017-03-11] MEDS: BISACODYL 10 MG SUPP RECTAL SCH (09:00)
[2017-03-11] MEDS: SODIUM CHLORIDE 0.9% FLUSH 5 ML FLUSH IVF SCH ×2 (09:00→20:20)
[2017-03-11] MEDS: DOCUSATE SODIUM 50 MG/SENNA 8.6 MG TAB PO SCH ×2 (09:00→20:21)
[2017-03-11 09:30] LABS: PHENOBARBITAL 16.9 MCG/ML (15.0-40.0)
[2017-03-11] MEDS: IBUPROFEN SUSP 100 MG/5 ML UDC PO PRN (13:35)
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
[2017-03-11] MEDS: ENOXAPARIN SODIUM 40 MG/0.4 ML SYRINGE SQ SCH (20:20)
[2017-03-11] MEDS: FAMOTIDINE 20 MG TAB PO SCH (20:21)
--- NOTE | 2017-03-11 21:45 | HHI.NSPN ---
History Interval History 03/06/17: Replacement craniotomy bone flap Exam Results Vital Signs Date Time Temp Pulse Resp B/P Pulse Ox O2 Delivery O2 Flow Rate FiO2 03/11/17 18:00 115 03/11/17 16:00 97.6 15 118/66 100 03/11/17 12:24 T-piece 5.00 28 Intake and Output 03/10/17 03/10/17 03/11/17 08:00 16:00 00:00 Intake Total 1188 ml 1219 ml 1259 ml Output Total 700 ml 650 ml 1200 ml Balance 488 ml 569 ml 59 ml Physical Examination Opens eyes spontaneously Tracts occasionally in response to verbal and visual stimuli Appears to grasp right hand mild to command. Smiles occasionally Surgical incision well approximated with harsha intact, no evident drainage, erythema or streaking Drain site dry On trach collar Lab, Micro, Other Results Laboratory Tests Test 03/11/17 08:00 Phenytoin (Dilantin) Level 10.1 MCG/ML Phenobarbital Level 16.9 MCG/ML Medical Decision Making Impression and Plan Impression: 1. Stable neurologic exam status post placement craniotomy bone flap. Postoperative CT scan head 03/06/17 satisfactory Plan: Stable for transfer to regular floor Continue therapies Continued on chemical DVT prophylaxis Continuing anticonvulsants per neurology Victor Hugo Gibson MD Mar 11, 2017 21:45
[2017-03-12] VITALS (11 sets, daily range): BP systolic 109–129; BP diastolic 63–72; PULSE 21–135; RESP 16–18; TEMP 95.3–99.8; O2SAT 97–100
[2017-03-12] MEDS: D5-1/2 NS + KCL 20 MEQ INJ 1,000 ML IV SCH ×3 (00:48→22:37)
[2017-03-12] MEDS: FOSPHENYTOIN SODIUM 100 MG PE/2 ML VIAL IV SCH ×4 (01:22→22:34)
[2017-03-12] MEDS: RESP: ALBUTEROL 2.5 MG/IPRATROPIUM 0.5 MG NEB (SCH) NEB ×7 (01:44→23:55)
[2017-03-12] MEDS: METOPROLOL TARTRATE 25 MG TAB PO SCH ×3 (03:21→18:25)
[2017-03-12] MEDS: ARTIFICIAL TEARS OPTH SOLN 15 ML BTL EACH EYE SCH ×5 (06:56→23:52)
[2017-03-12] MEDS: SODIUM CHLORIDE 0.9% FLUSH 5 ML FLUSH IVF SCH ×2 (09:00→21:00)
[2017-03-12] MEDS: BROMOCRIPTINE MESYLATE 2.5 MG TAB PO SCH ×2 (09:36→22:32)
[2017-03-12] MEDS: LACOSAMIDE 50 MG TAB G-TUBE SCH ×2 (09:37→22:32)
[2017-03-12] MEDS: LANSOPRAZOLE SOLUTAB 30 MG TAB NG SCH (09:37)
[2017-03-12] MEDS: DOCUSATE SODIUM 50 MG/SENNA 8.6 MG TAB PO SCH ×2 (09:37→22:32)
[2017-03-12] MEDS: BISACODYL 10 MG SUPP RECTAL SCH (09:39)
--- NOTE | 2017-03-12 10:44 | HHI.PR ---
Subjective Remarks follow up TBI s/p replacement craniotomy bone flap 03/06/17-patient seen and examined; patient is nonverbal; s/p bone flap 03/05/17. per she has increased LUE swelling. NO report of seizure activity. Afebrile 03/07/17-patient seen and examined, nonverbal, some neurologic change overnight requiring an MRI for further examination. case discussed with patient's mom at the bedside 03/08/17-patient seen and examined, nonverbal, per mother's account patient was all wet this morning and spiking fever, repeat brain MRI report discussed with mother 03/09/17-patient seen and examined, spiking low-grade temp, nonverbal. BP normotensive 03/10/17-patient seen and examined, afebrile, no new neurologic finding. Discussed with by the bedside. 03/11/17-patient seen and examined, resting and currently afebrile. 03/12/17-patient seen and examined, nonverbal, afebrile and no acute event overnight. Case discussed with Sagar HUI Objective Vitals Vital Signs Date Time Temp Pulse Resp B/P Pulse Ox O2 Delivery O2 Flow Rate FiO2 03/12/17 08:37 99 T-piece 28 03/12/17 08:00 99.8 129 16 124/70 100 03/12/17 05:01 97.0 132 18 129/72 98 03/12/17 01:51 97 T-piece 28 03/12/17 00:46 98.4 110 18 109/63 100 03/11/17 22:00 100 T-Piece 28 Humidified 03/11/17 21:30 96.4 120 16 121/65 100 03/11/17 18:00 115 03/11/17 16:00 97.6 120 15 118/66 100 03/11/17 16:00 115 03/11/17 14:00 115 03/11/17 12:24 100 T-piece 5.00 28 03/11/17 12:00 99.5 121 16 107/67 100 03/11/17 12:00 115 I/O 03/11/17 03/11/17 03/11/17 03/12/17 03/12/17 03/12/17 07:00 15:00 23:00 07:00 15:00 23:00 Intake Total 1532 ml 1318 ml 616 ml 2417 ml Output Total 1350 ml 1000 ml 1600 ml 1100 ml Balance 182 ml 318 ml -984 ml 1317 ml IV Total 897 ml 818 ml 1677 ml Tube Feeding 515 ml 500 ml 640 ml TPN/PPN 616 ml Other 120 ml 100 ml Output Urine Total 1350 ml 1000 ml 1600 ml 1100 ml # Bowel Movements 0 0 0 0 Result Diagram: 03/08/17 0700 03/08/17 0323 Objective Remarks GENERAL: Nonverbal and NAD SKIN: Warm and dry. HEAD: s/p bone flap; EYES: No scleral icterus. No injection or drainage. NECK: Supple, trachea midline. No JVD or lymphadenopathy. CARDIOVASCULAR: Regular rate and rhythm without murmurs, gallops, or rubs. RESPIRATORY: Breath sounds equal bilaterally. No accessory muscle use. GASTROINTESTINAL: Abdomen soft, non-tender, nondistended. MUSCULOSKELETAL: No cyanosis, or edema. LUE minimally swelling and increased in size BACK: Nontender without obvious deformity. No CVA tenderness. Procedures Replacement craniotomy bone flap 03/06/17 Side: Left A/P Problem List: (1) Breakthrough seizure ICD Code: G40.919 Status: Acute (2) Seizure disorder ICD Code: G40.909 Status: Acute (3) Major neurocognitive disorder as late effect of traumatic brain injury without behavioral disturbance ICD Code: S06.9X9S Status: Acute (4) Closed head injury ICD Code: S09.90XA Status: Acute (5) Subdural hematoma ICD Code: I62.00 Status: Acute (6) Pelvic fracture ICD Code: S32.9XXA Status: Acute (7) Kidney contusion ICD Code: S37.019A Status: Acute (8) Liver laceration ICD Code: S36.113A Status: Acute (9) Trauma ICD Code: T14.90 Status: Acute (10) Sinus tachycardia ICD Code: R00.0 Status: Acute (11) 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 Gibson. Management per neurosurgery Low-grade fever, recurrent: Currently afebrile and continue to monitor for sign of infection. Tylenol when necessary Chronic respiratory failure. Patient is tolerating T piece at 28% oxygen with good O2 saturations. Aggressive pulmonary toilet. Pulmonology following the patient. Levsin for secretions. - LUE swelling r/o DVT: Doppler negative Seizure, breakthrough: Currently on Vimpat and iv Cerebryx as well as Phenobarbital. Monitor Levels. s/p Keppra . EEG noted Multiple pelvic fractures. Transverse process fractures, lumbar region: Continue physical therapy, occupational therapy, speech therapy Sinus tachycardia: on metoprolol 25 mg twice daily . Continue monitor heart rate Low blood pressure: Currently normotensive. If no improvement today will resume Midodrine Records indicate MRSA pneumonia: Patient completed vancomycin on 02/18. . GI protection with Prevacid DVT prevention: Nilson Bustillos MD Mar 12, 2017 10:44
[2017-03-12] MEDS: ACETAMINOPHEN 325 MG TAB PO PRN (12:30)
--- NOTE | 2017-03-12 16:49 | HHI.NSPN ---
([place]) Note Status Status: Progress Note ([place]) Interval History Interval History Ms. Laurent is a 22 y/o female with a history of TBI 03/05: To OR for: Replacement left craniotomy bone flap Left frontotemporoparietal duraplasty 03/06: POD # 1 replacement craniotomy bone flap 03/07: today mildly opening eyes, however not following commands 03/08: f/u CT Head completed, more awake today 03/09: Patient opens eyes spontaneously but not tracking 03/10: Patient opens eyes to noxious stimuli, Nursing reports she is more responsive to than staff 03/11: Patient transferred to regular med/surg floor 03/12: Eyes open, smiles, still tachycardiac ([place]) Labs, Micro, & Vital Signs Results Date Time Temp Pulse Resp B/P Pulse Ox O2 Delivery O2 Flow Rate FiO2 03/12/17 12:37 124 03/12/17 12:00 99.2 121 16 121/67 100 03/12/17 09:00 100 T-Piece 28 03/12/17 08:37 99 T-piece 28 03/12/17 08:00 99.8 129 16 124/70 100 03/12/17 05:01 97.0 132 18 129/72 98 03/12/17 01:51 97 T-piece 28 03/12/17 00:46 98.4 110 18 109/63 100 03/11/17 22:00 100 T-Piece 28 Humidified 03/11/17 21:30 96.4 120 16 121/65 100 03/11/17 18:00 115 03/12/17 07:00 Intake Total 4351 ml Output Total 3700 ml Balance 651 ml Constitutional Vital Signs Date Time Temp Pulse Resp B/P Pulse Ox O2 Delivery O2 Flow Rate FiO2 03/12/17 12:37 124 03/12/17 12:00 99.2 121 16 121/67 100 03/12/17 09:00 100 T-Piece 28 03/12/17 08:37 99 T-piece 28 03/12/17 08:00 99.8 129 16 124/70 100 03/12/17 05:01 97.0 132 18 129/72 98 03/12/17 01:51 97 T-piece 28 03/12/17 00:46 98.4 110 18 109/63 100 03/11/17 22:00 100 T-Piece 28 Humidified 03/11/17 21:30 96.4 120 16 121/65 100 03/11/17 18:00 115 03/12/17 07:00 Intake Total 4351 ml Output Total 3700 ml Balance 651 ml ([place]) Review of Systems/Exam ROS Unable to obtain ROS due to patient's mental status. Exam Resp: Slightly course breath sounds bilaterally, on trach collar, equal excursion, non-laboured. CV: Regular but fast rate w/o M/G/R, radial & pedal pulses 2+ bilaterally, cap refill < 2 sec, no pedal edema. GI: Abdomen soft, nontender, positive bowel sounds, enteral feedings through PEG tube. Neuro: Opens eyes spontaneously, PERRLA, tracts intermittently, will smile, weak bluing oven tender to command left hand and moves left foot to command, no response with right hand or right foot, slight movement noted to right fingers later. Surgical incision well approximated with intact harsha, no evident drainage, erythema or streaking. ([place]) Medications Current Medications Current Medications Medications (Trade) Dose Ordered Sig/Raji Route Start Time Stop Time Status Last Admin (Tylenol) 650 mg Q4H PRN PO 02/17/17 00:30 03/12/17 12:30 (Zofran Inj) 4 mg Q6H PRN IVP 02/17/17 00:30 (Milk Of Magnesia Liq) 30 ml Q12H PRN PO 02/17/17 00:30 (Narcan Inj) 0.4 mg UNSCH PRN IV 02/17/17 00:30 Miscellaneous Information Patient in critical care unit? Ass... Q361D XX 02/17/17 04:15 02/17/17 04:15 (Dulcolax Supp) 10 mg DAILY RECTAL 02/18/17 09:00 03/12/17 09:39 (Parlodel) 2.5 mg Q12HR PO 02/17/17 21:00 03/12/17 09:36 (Pepcid) 20 mg HS PO 02/17/17 21:00 03/11/17 20:21 (Levsin) 0.125 mg Q4H PRN PO 02/17/17 11:15 (Motrin Liq) 200 mg Q6H PRN PO 02/17/17 11:15 03/11/17 13:35 (Luminal Inj) 65 mg BID IV 02/17/17 12:00 03/12/17 09:37 (Malu-Colace) 1 tab BID PO 02/17/17 21:00 03/12/17 09:37 (Lovenox Inj) 40 mg Q24H SQ 02/17/17 20:00 03/11/17 20:20 (Lactulose Liq) 30 ml DAILY PRN PO 02/19/17 07:30 (Prevacid Odt) 30 mg DAILY NG 02/19/17 09:00 03/12/17 09:37 (Roxicodone) 5 mg Q4H PRN PEG 02/19/17 08:00 03/06/17 10:10 (Tears Naturale Opth Soln) 1 drop Q6HR EACH EYE 02/22/17 19:00 03/12/17 12:22 (Vimpat) 50 mg BID G-TUBE 02/25/17 09:00 03/12/17 09:37 (Pill Splitter) 1 ea UNSCH PRN OTHER 03/01/17 23:45 (NS Flush) 2 ml UNSCH PRN IVF 03/05/17 18:00 IV Flush 2 ml 2 ml BID IVF 03/05/17 21:00 03/12/17 09:00 (D5-1/2 NS + KCl 20 Meq Inj) 1,000 ml @ 100 mls/hr Q10H IV 03/05/17 17:49 03/12/17 09:39 (Lopressor) 25 mg Q8H PO 03/06/17 18:00 03/12/17 09:37 (Cerebyx Inj) 150 mgpe Q8HR IV 03/06/17 22:00 03/12/17 14:18 ([place]) Medical Decision Making MDM Remarks 22 y/o fematle with a history of TBI POD # 7 s/p cranioplasty for bone flap replacement Improving neurological function Tachycardia ([place]) Plan Plan Remarks Discussed plan of care with patient's who verbalised his understanding, questions answered. Continue neuro checks Continue mechanical DVT prophylaxis Primary management & HR mgmt per Trauma Plan for staple removal ([place]) Attending Statement I have personally seen and examined the patient on the date of this note. Pertinent documentation and study results have been reviewed by the undersigned. I have personally developed the treatment plan and performed medical decision making. Agree with findings, exam, and treatment plan as noted above. (Victor Hugo Gibson MD) [place] Mar 12, 2017 16:49 Victor Hugo Gibson MD Mar 13, 2017 19:38
[2017-03-12] MEDS: FAMOTIDINE 20 MG TAB PO SCH (22:32)
[2017-03-12] MEDS: ENOXAPARIN SODIUM 40 MG/0.4 ML SYRINGE SQ SCH (22:37)
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
[2017-03-13] VITALS (10 sets, daily range): BP systolic 91–138; BP diastolic 54–80; PULSE 111–134; RESP 18–20; TEMP 97.3–99.8; O2SAT 96–100
[2017-03-13] MEDS: METOPROLOL TARTRATE 25 MG TAB PO SCH ×3 (02:00→17:56)
[2017-03-13] MEDS: RESP: ALBUTEROL 2.5 MG/IPRATROPIUM 0.5 MG NEB (SCH) NEB ×5 (03:01→19:55)
[2017-03-13] MEDS: D5-1/2 NS + KCL 20 MEQ INJ 1,000 ML IV SCH ×2 (05:25→13:33)
[2017-03-13] MEDS: ARTIFICIAL TEARS OPTH SOLN 15 ML BTL EACH EYE SCH ×3 (06:02→17:56)
[2017-03-13] MEDS: FOSPHENYTOIN SODIUM 100 MG PE/2 ML VIAL IV SCH ×3 (06:04→22:04)
[2017-03-13] MEDS: BISACODYL 10 MG SUPP RECTAL SCH (09:00)
[2017-03-13] MEDS: LACOSAMIDE 50 MG TAB G-TUBE SCH ×2 (09:07→21:59)
[2017-03-13] MEDS: LANSOPRAZOLE SOLUTAB 30 MG TAB NG SCH (09:07)
[2017-03-13] MEDS: DOCUSATE SODIUM 50 MG/SENNA 8.6 MG TAB PO SCH ×2 (09:07→21:00)
[2017-03-13] MEDS: BROMOCRIPTINE MESYLATE 2.5 MG TAB PO SCH ×2 (09:08→21:59)
[2017-03-13] MEDS: SODIUM CHLORIDE 0.9% FLUSH 5 ML FLUSH IVF SCH ×2 (09:08→21:00)
--- NOTE | 2017-03-13 09:16 | HHI.PR ---
Subjective Remarks follow up TBI s/p replacement craniotomy bone flap 03/06/17-patient seen and examined; patient is nonverbal; s/p bone flap 03/05/17. per she has increased LUE swelling. NO report of seizure activity. Afebrile 03/07/17-patient seen and examined, nonverbal, some neurologic change overnight requiring an MRI for further examination. case discussed with patient's mom at the bedside 03/08/17-patient seen and examined, nonverbal, per mother's account patient was all wet this morning and spiking fever, repeat brain MRI report discussed with mother 03/09/17-patient seen and examined, spiking low-grade temp, nonverbal. BP normotensive 03/10/17-patient seen and examined, afebrile, no new neurologic finding. Discussed with by the bedside. 03/11/17-patient seen and examined, resting and currently afebrile. 03/12/17-patient seen and examined, nonverbal, afebrile and no acute event overnight. Case discussed with Sagar HUI 03/13/17-patient seen and examined, nonverbal, tachycardia, afebrile and no acute event overnight. Positive for secretions around trach .No change in Neuro status. Objective Vitals Vital Signs Date Time Temp Pulse Resp B/P Pulse Ox O2 Delivery O2 Flow Rate FiO2 03/13/17 04:00 97.3 111 20 91/54 99 03/13/17 00:00 97.4 127 18 138/80 100 03/12/17 23:00 129 03/12/17 22:45 100 T-Piece 28 03/12/17 21:01 100 T-Piece 28 03/12/17 20:00 95.3 21 16 121/69 100 03/12/17 20:00 99 T-piece 28 03/12/17 19:30 100 T-piece 28 03/12/17 16:00 98.7 135 16 129/63 100 03/12/17 12:37 124 03/12/17 12:00 99.2 121 16 121/67 100 I/O 03/12/17 03/12/17 03/12/17 03/13/17 03/13/17 03/13/17 07:00 15:00 23:00 07:00 15:00 23:00 Intake Total 2417 ml 0 ml 1681 ml Output Total 1100 ml 1100 ml 1850 ml 250 ml Balance 1317 ml -1100 ml -169 ml -250 ml Intake Oral 0 ml IV Total 1677 ml 1023 ml Tube Feeding 640 ml 658 ml Other 100 ml Output Urine Total 1100 ml 1100 ml 1850 ml 250 ml # Bowel Movements 0 1 1 Objective Remarks GENERAL: Nonverbal and NAD SKIN: Warm and dry. HEAD: s/p bone flap; EYES: No scleral icterus. No injection or drainage. NECK: Supple, trachea midline. No JVD or lymphadenopathy. CARDIOVASCULAR: Regular rate and rhythm without murmurs, gallops, or rubs. RESPIRATORY: Breath sounds equal bilaterally. No accessory muscle use. GASTROINTESTINAL: Abdomen soft, non-tender, nondistended. MUSCULOSKELETAL: No cyanosis, or edema. LUE minimally swelling and increased in size BACK: Nontender without obvious deformity. No CVA tenderness. Procedures Replacement craniotomy bone flap 03/06/17 Side: Left A/P Problem List: (1) Breakthrough seizure ICD Code: G40.919 Status: Chronic (2) Seizure disorder ICD Code: G40.909 Status: Acute (3) Major neurocognitive disorder as late effect of traumatic brain injury without behavioral disturbance ICD Code: S06.9X9S Status: Acute (4) Closed head injury ICD Code: S09.90XA Status: Acute (5) Subdural hematoma ICD Code: I62.00 Status: Acute (6) Pelvic fracture ICD Code: S32.9XXA Status: Acute (7) Kidney contusion ICD Code: S37.019A Status: Acute (8) Liver laceration ICD Code: S36.113A Status: Acute (9) Trauma ICD Code: T14.90 Status: Acute (10) Sinus tachycardia ICD Code: R00.0 Status: Acute (11) 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 Gibson. Management per neurosurgery Low-grade fever, recurrent: Currently afebrile and continue to monitor for sign of infection. Tylenol when necessary Chronic respiratory failure. Patient is tolerating T piece at 28% oxygen with good O2 saturations. Aggressive pulmonary toilet. Pulmonology following the patient. Continue with Levsin for secretions. Send Trach secretion for culture 03/13/17 - LUE swelling r/o DVT: Doppler + for thrombus in the left Basilic vein Seizure, breakthrough: Currently on Vimpat 50mg BID and Dilantin 150mg Q8H as well as Phenobarbital 65mg BID. Monitor renal bilaterally to and Levels. s/p Keppra . EEG noted Multiple pelvic fractures. Transverse process fractures, lumbar region: Continue physical therapy, occupational therapy, speech therapy Sinus tachycardia: on metoprolol 25 mg twice daily . Continue monitor heart rate Low blood pressure: Currently normotensive. Consider Midodrine if recurrence of low BP Records indicate MRSA pneumonia: Patient completed vancomycin on 02/18. . GI protection with Prevacid DVT prevention: Nilson Bustillos MD Mar 13, 2017 09:16
--- NOTE | 2017-03-13 10:09 | HHI.NSPN ---
([place]) Note Status Status: Progress Note ([place]) Interval History Interval History Ms. Laurent is a 22 y/o female with a history of TBI 03/05: To OR for: Replacement left craniotomy bone flap Left frontotemporoparietal duraplasty 03/06: POD # 1 replacement craniotomy bone flap 03/07: today mildly opening eyes, however not following commands 03/08: f/u CT Head completed, more awake today 03/09: Patient opens eyes spontaneously but not tracking 03/10: Patient opens eyes to noxious stimuli, Nursing reports she is more responsive to than staff 03/11: Patient transferred to regular med/surg floor 03/12: Eyes open, smiles, still tachycardiac 03/13: Patient drowsy today, minimally follows commands ([place]) Labs, Micro, & Vital Signs Results Date Time Temp Pulse Resp B/P Pulse Ox O2 Delivery O2 Flow Rate FiO2 03/13/17 07:00 100 T-Piece 28 03/13/17 04:00 97.3 111 20 91/54 99 03/13/17 00:00 97.4 127 18 138/80 100 03/12/17 23:00 129 03/12/17 22:45 100 T-Piece 28 03/12/17 21:01 100 T-Piece 28 03/12/17 20:00 95.3 21 16 121/69 100 03/12/17 20:00 99 T-piece 28 03/12/17 19:30 100 T-piece 28 03/12/17 16:00 98.7 135 16 129/63 100 03/12/17 12:37 124 03/12/17 12:00 99.2 121 16 121/67 100 03/13/17 07:00 Intake Total 1681 ml Output Total 3200 ml Balance -1519 ml Constitutional Vital Signs Date Time Temp Pulse Resp B/P Pulse Ox O2 Delivery O2 Flow Rate FiO2 03/13/17 07:00 100 T-Piece 28 03/13/17 04:00 97.3 111 20 91/54 99 03/13/17 00:00 97.4 127 18 138/80 100 03/12/17 23:00 129 03/12/17 22:45 100 T-Piece 28 03/12/17 21:01 100 T-Piece 28 03/12/17 20:00 95.3 21 16 121/69 100 03/12/17 20:00 99 T-piece 28 03/12/17 19:30 100 T-piece 28 03/12/17 16:00 98.7 135 16 129/63 100 03/12/17 12:37 124 03/12/17 12:00 99.2 121 16 121/67 100 03/13/17 07:00 Intake Total 1681 ml Output Total 3200 ml Balance -1519 ml ([place]) Review of Systems/Exam ROS Unable to obtain ROS due to patient's mental status. Exam Drowsy this morning Some movement of eyelids to voice Weak smile Minimal response to commands Surgical incision well approximated with intact harsha, no evident drainage, erythema or streaking. ([place]) Medications Current Medications Current Medications Medications (Trade) Dose Ordered Sig/Raji Route Start Time Stop Time Status Last Admin (Tylenol) 650 mg Q4H PRN PO 02/17/17 00:30 03/12/17 12:30 (Zofran Inj) 4 mg Q6H PRN IVP 02/17/17 00:30 (Milk Of Magnesia Liq) 30 ml Q12H PRN PO 02/17/17 00:30 (Narcan Inj) 0.4 mg UNSCH PRN IV 02/17/17 00:30 Miscellaneous Information Patient in critical care unit? Ass... Q361D XX 02/17/17 04:15 02/17/17 04:15 (Dulcolax Supp) 10 mg DAILY RECTAL 02/18/17 09:00 03/12/17 09:39 (Parlodel) 2.5 mg Q12HR PO 02/17/17 21:00 03/13/17 09:08 (Pepcid) 20 mg HS PO 02/17/17 21:00 03/12/17 22:32 (Levsin) 0.125 mg Q4H PRN PO 02/17/17 11:15 (Motrin Liq) 200 mg Q6H PRN PO 02/17/17 11:15 03/11/17 13:35 (Luminal Inj) 65 mg BID IV 02/17/17 12:00 03/13/17 09:08 (Malu-Colace) 1 tab BID PO 02/17/17 21:00 03/13/17 09:07 (Lovenox Inj) 40 mg Q24H SQ 02/17/17 20:00 03/12/17 22:37 (Lactulose Liq) 30 ml DAILY PRN PO 02/19/17 07:30 (Prevacid Odt) 30 mg DAILY NG 02/19/17 09:00 03/13/17 09:07 (Roxicodone) 5 mg Q4H PRN PEG 02/19/17 08:00 03/06/17 10:10 (Tears Naturale Opth Soln) 1 drop Q6HR EACH EYE 02/22/17 19:00 03/13/17 06:02 (Vimpat) 50 mg BID G-TUBE 02/25/17 09:00 03/13/17 09:07 (Pill Splitter) 1 ea UNSCH PRN OTHER 03/01/17 23:45 (NS Flush) 2 ml UNSCH PRN IVF 03/05/17 18:00 IV Flush 2 ml 2 ml BID IVF 03/05/17 21:00 03/13/17 09:08 (D5-1/2 NS + KCl 20 Meq Inj) 1,000 ml @ 100 mls/hr Q10H IV 03/05/17 17:49 03/12/17 22:37 (Lopressor) 25 mg Q8H PO 03/06/17 18:00 03/13/17 09:08 (Cerebyx Inj) 150 mgpe Q8HR IV 03/06/17 22:00 03/13/17 06:04 ([place]) Medical Decision Making MDM Remarks 22 y/o female with a history of TBI POD # 8 s/p cranioplasty for bone flap replacement Neurological function appears stable ([place]) Plan Plan Remarks Continue neuro checks Continue mechanical DVT prophylaxis Primary management & HR mgmt per Trauma Plan for staple removal ([place]) Attending Statement I have personally seen and examined the patient on the date of this note. Pertinent documentation and study results have been reviewed by the undersigned. I have personally developed the treatment plan and performed medical decision making. Agree with findings, exam, and treatment plan as noted above. Incision site clean and healing well Follow-up CT scan head next week (Victor Hugo Gibson MD) [place] Mar 13, 2017 10:09 Victor Hugo Gibson MD Mar 13, 2017 19:39
[2017-03-13 10:13] LABS: AUTOMATED NEUTROPHIL # 5.7 TH/MM3 (1.8-7.7); BASOPHIL # 0.1 TH/MM3 (0-0.2); EOSINOPHIL # 0.4 TH/MM3 (0-0.4); EOSINOPHIL % 4.7 % (0.0-4.0); HEMATOCRIT 31.8 % (35.0-46.0); HEMO FLAGS DIFF FINAL; LYMPH % 17.1 % (9.0-44.0); LYMPHOCYTE # 1.4 TH/MM3 (1.0-4.8); MEAN CELL VOLUME 84.4 FL (80.0-100.0); MEAN CORPUSCULAR HEMOGLOBIN 28.3 PG (27.0-34.0); MEAN CORPUSCULAR HGB CONC 33.5 % (32.0-36.0); MONO % 8.8 % (0.0-8.0); NEUT % 68.4 % (16.0-70.0); PLATELET COUNT 397 TH/MM3 (150-450); RED BLOOD COUNT 3.76 MIL/MM3 (4.00-5.30); WHITE BLOOD COUNT 8.3 TH/MM3 (4.0-11.0)
[2017-03-13 10:38] LABS: BICARBONATE 29.2 MEQ/L (21.0-32.0); PHENOBARBITAL 18.2 MCG/ML (15.0-40.0); POTASSIUM 4.1 MEQ/L (3.5-5.1)
[2017-03-13] MEDS ORDERED: PHENYTOIN INJ 250 MG/5 ML VIAL IV ONE (16:00)
[2017-03-13] MEDS: FAMOTIDINE 20 MG TAB PO SCH (21:59)
[2017-03-13] MEDS: ENOXAPARIN SODIUM 40 MG/0.4 ML SYRINGE SQ SCH (22:00)
[2017-03-14] VITALS (10 sets, daily range): BP systolic 100–140; BP diastolic 56–90; PULSE 112–125; RESP 18–23; TEMP 97.8–99.6; O2SAT 98–100
--- NOTE | 2017-03-14 00:24 | RADRPT ---
EXAM DATE/TIME: 03/13/2017 21:49 [facility] COMPARISON: No previous studies available for comparison. INDICATIONS : Right arm swelling. Prior deep vein thrombosis in left arm. MEDICAL HISTORY : Seizures. Head trauma. Enodmetriosis. UTI. SURGICAL HISTORY : Craniotomy. Exploratory laproscopy. Uterine scrapping. Blood transfusions. ENCOUNTER: Subsequent ACUITY: 2 weeks PAIN SCORE: 4/10 LOCATION: Right arm. FINDINGS: Echogenic noncompressible material seen throughout the brachial and basilic veins within the upper ar m. This is occlusive. The jugular vein, axillary vein, and subclavian vein are patent. CONCLUSION: Acute occlusive thrombus involving the basilic and brachial veins. Jesse Waite Jr., MD on March 14, 2017 at 0:20 Board Certified Radiologist. This report was verified electronically.
[2017-03-14] MEDS: RESP: ALBUTEROL 2.5 MG/IPRATROPIUM 0.5 MG NEB (SCH) NEB ×6 (00:29→20:08)
[2017-03-14] MEDS: METOPROLOL TARTRATE 25 MG TAB PO SCH ×3 (02:16→18:48)
[2017-03-14] MEDS: D5-1/2 NS + KCL 20 MEQ INJ 1,000 ML IV SCH ×3 (02:18→21:42)
[2017-03-14] MEDS: ARTIFICIAL TEARS OPTH SOLN 15 ML BTL EACH EYE SCH ×5 (05:38→21:47)
[2017-03-14] MEDS: FOSPHENYTOIN SODIUM 100 MG PE/2 ML VIAL IV SCH ×3 (05:38→21:41)
--- NOTE | 2017-03-14 08:42 | HHI.PR ---
Subjective Remarks Follow up TBI s/p replacement craniotomy bone flap. 03/06/17-patient seen and examined; patient is nonverbal; s/p bone flap 03/05/17. per she has increased LUE swelling. NO report of seizure activity. Afebrile 03/07/17-patient seen and examined, nonverbal, some neurologic change overnight requiring an MRI for further examination. case discussed with patient's mom at the bedside 03/08/17-patient seen and examined, nonverbal, per mother's account patient was all wet this morning and spiking fever, repeat brain MRI report discussed with mother 03/09/17-patient seen and examined, spiking low-grade temp, nonverbal. BP normotensive 03/10/17-patient seen and examined, afebrile, no new neurologic finding. Discussed with by the bedside. 03/11/17-patient seen and examined, resting and currently afebrile. 03/12/17-patient seen and examined, nonverbal, afebrile and no acute event overnight. Case discussed with Sagar HUI 03/13/17-patient seen and examined, nonverbal, tachycardia, afebrile and no acute event overnight. Positive for secretions around trach .No change in Neuro status. 03/14/17-patient seen and examined. Per nursing, CANDICE u/s yesterday showed DVT. Want to know if they can have order for lab draw from the foot. Spoke with mother this AM. She is concerned about "what can be done for her blood clots". She is worried about potential bleed with full anticoagulation. Wants to know if "anything else can be done to decrease risk of additional clots". No other concerns at this time. Objective Vitals Vital Signs Date Time Temp Pulse Resp B/P Pulse Ox O2 Delivery O2 Flow Rate FiO2 03/14/17 07:59 98.6 112 18 100/56 100 03/14/17 04:14 99 T-piece 28 03/14/17 04:00 97.8 112 20 138/71 98 03/14/17 00:29 100 T-piece 28 03/13/17 17:00 98.6 134 20 112/69 100 03/13/17 16:15 99 T-piece 6.00 28 03/13/17 16:11 99 T-piece 6.00 28 03/13/17 14:38 113 03/13/17 13:16 99 T-piece 28 03/13/17 13:01 99.8 120 20 100/66 100 03/13/17 09:54 100 T-piece 28 03/13/17 09:30 99.4 122 20 115/75 96 03/13/17 08:50 T-Piece 5.00 28 Humidified I/O 03/13/17 03/13/17 03/13/17 03/14/17 03/14/17 03/14/17 07:00 15:00 23:00 07:00 15:00 23:00 Intake Total 1547 ml 1338 ml Output Total 250 ml 600 ml Balance -250 ml 947 ml 1338 ml IV Total 577 ml 704 ml Tube Feeding 910 ml 544 ml Tube Irrigant 60 ml 90 ml Output Urine Total 250 ml 600 ml # Bowel Movements 2 Result Diagram: 03/13/1748 03/13/17 0948 Objective Remarks GENERAL: Nonverbal and NAD. SKIN: Warm and dry. No rashes noted. HEAD: s/p bone flap; EYES: No scleral icterus. No injection or drainage. NECK: Supple, trachea midline. No JVD or lymphadenopathy. CARDIOVASCULAR: Regular rate and rhythm without murmurs, gallops, or rubs. +2 peripheral pulses. RESPIRATORY: Breath sounds equal bilaterally. No accessory muscle use. Anterior breath sounds are CTAB. GASTROINTESTINAL: Abdomen soft, non-tender, nondistended. MUSCULOSKELETAL: No cyanosis, or edema. Minimal, trace edema in bilateral upper extremities. No LE swelling or calf pain noted. BACK: Nontender without obvious deformity. No CVA tenderness. Procedures Replacement craniotomy bone flap 03/06/17 Side: Left A/P Problem List: (1) Breakthrough seizure ICD Code: G40.919 Status: Chronic (2) Seizure disorder ICD Code: G40.909 Status: Acute (3) Major neurocognitive disorder as late effect of traumatic brain injury without behavioral disturbance ICD Code: S06.9X9S Status: Acute (4) Closed head injury ICD Code: S09.90XA Status: Acute (5) Subdural hematoma ICD Code: I62.00 Status: Acute (6) Pelvic fracture ICD Code: S32.9XXA Status: Acute (7) Kidney contusion ICD Code: S37.019A Status: Acute (8) Liver laceration ICD Code: S36.113A Status: Acute (9) Trauma ICD Code: T14.90 Status: Acute (10) Sinus tachycardia ICD Code: R00.0 Status: Acute (11) 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 Management per neurosurgery Low-grade fever, recurrent: Low grade fever 03/13 at 1300. Currently afebrile and continue to monitor for sign of infection. Tylenol when necessary. Chronic respiratory failure. Patient is tolerating T piece at 28% oxygen with good O2 saturations. Aggressive pulmonary toilet. Pulmonology following the patient. Continue with Levsin for secretions. Trach secretion sent for culture 03/13/17. Results pending. - LUE/RUE DVT: Doppler positive for RUE and LUE DVT. Currently only on prophylactic dose for DVT with lovenox 40mg daily. Will need to discuss risk/ benefit of full anticoagulation with neurosurgery today. Seizure, breakthrough: Currently on Vimpat 50mg BID and Dilantin 150mg Q8H as well as Phenobarbital 65mg BID. Phenytoin level low at 9.2 yesterday. Will check repeat level today with CMP (for protein corrected level). Will okay lab draws from foot given RUE DVT. s/p Keppra . EEG noted [id number] encephalopathy with left hemisphere slowing. Multiple pelvic fractures. Transverse process fractures, lumbar region: Continue physical therapy, occupational therapy, speech therapy Sinus tachycardia: on metoprolol 25 mg TID. Continue monitor heart rate. Low blood pressure: Currently normotensive. Consider Midodrine if recurrence of low BP. Records indicate MRSA pneumonia: Patient completed vancomycin on 02/18. . GI protection with Prevacid DVT prevention: Lovenox, as above. Problem Qualifiers (1) Deep venous thrombosis of upper extremity: Qualified Code: I82.623 - Acute deep vein thrombosis (DVT) of both upper extremities, unspecified vein Dmitriy Brock MD R3 Mar 14, 2017 08:42
[2017-03-14] MEDS: BISACODYL 10 MG SUPP RECTAL SCH (09:00)
[2017-03-14] MEDS: SODIUM CHLORIDE 0.9% FLUSH 5 ML FLUSH IVF SCH ×2 (09:00→21:00)
[2017-03-14] MEDS: LACOSAMIDE 50 MG TAB G-TUBE SCH ×2 (09:33→21:40)
[2017-03-14] MEDS: LANSOPRAZOLE SOLUTAB 30 MG TAB NG SCH (09:33)
[2017-03-14] MEDS: DOCUSATE SODIUM 50 MG/SENNA 8.6 MG TAB PO SCH ×2 (09:33→21:00)
[2017-03-14] MEDS: BROMOCRIPTINE MESYLATE 2.5 MG TAB PO SCH ×2 (09:33→21:40)
[2017-03-14 11:24] LABS: ALKALINE PHOSPHATASE 118 U/L (45-117); ALT (GPT) 82 U/L (10-53); ANION GAP 11 MEQ/L (5-15); AST (GOT) 59 U/L (15-37); BICARBONATE 27.9 MEQ/L (21.0-32.0); CHLORIDE 98 MEQ/L (98-107); GLOMERULAR FILTRATION RATE 296 ML/MIN (>89); POTASSIUM 4.8 MEQ/L (3.5-5.1); SODIUM (NA) 137 MEQ/L (136-145); TOTAL BILIRUBIN ADULT 0.2 MG/DL (0.2-1.0)
[2017-03-14 11:32] LABS: BLOOD UREA NITROGEN 8 MG/DL (7-18)
--- NOTE | 2017-03-14 15:14 | RADRPT ---
EXAM DATE/TIME: 03/14/2017 14:18 [facility] COMPARISON: MRI BRAIN W/O CONTRAST, January 12, 2017, 14:37. CT BRAIN W/O CONTRAST, Feb, 5:29. INDICATIONS : Evaluate for hemorrhage. RADIATION DOSE: 56.35 CTDIvol (mGy) MEDICAL HISTORY : Seizures. SURGICAL HISTORY : Craniotomy. ENCOUNTER: Initial ACUITY: 1 day PAIN SCALE: 3/10 LOCATION: Cranial TECHNIQUE: Multiple contiguous axial images were obtained of the head. Using automated exposure control and adjustment of the mA and/or kV according to patient size, radiation dose was kept as low as reasonably achievable to obtain optimal diagnostic quality images. FINDINGS: The patient is status post left craniotomy. There is a persistent left subdural fluid collection yrn suring up to 9 mm. This appears unchanged in size and configuration [facility] Previously, air was seen within this fluid collection. The air is no longer visible. Signific ant midline shift is not seen. There is effacement of the sulci over the left frontal and parietal l obes. There is surgical material seen in the scalp over the craniotomy defect. Skin harsha are see n. There is an old lacunar infarct at the right thalamus. There also appears to be an area of low densi ty at the medial right occipital lobe and medial right temporal lobe. There does appear to be some e ncephalomalacia at the right frontal lobe presumably following a tract from prior ventriculostomy tub e. The basal cisterns are open. CONCLUSION: 1. Stable CT examination with a subdural collection over the left frontal lobe causing effacement of the sulci on the left side. Significant midline shift is not seen. The basal cisterns are open. 2. Old areas of infarction at the right thalamus, right occipital lobe and medial right temporal lob e. Paul Rudd MD on March 14, 2017 at 14:55 Board Certified Radiologist. This report was verified electronically.
--- NOTE | 2017-03-14 16:39 | HHI.NSPN ---
History Interval History 03/06/17: Replacement craniotomy bone flap 03/14/17: Heparin IV started for DVT. CT Head satisfactory Exam Results Vital Signs Date Time Temp Pulse Resp B/P Pulse Ox O2 Delivery O2 Flow Rate FiO2 03/14/17 16:20 98.7 113 18 114/88 100 03/14/17 14:22 T-piece 6.00 28 Intake and Output 03/13/17 03/13/17 03/14/17 08:00 16:00 00:00 Intake Total 1547 ml 1338 ml Output Total 250 ml 600 ml Balance -250 ml 947 ml 1338 ml Physical Examination Drowsy this morning Mild spontaneous eye opening. Some movement of eyelids to voice Weak smile Disconjugate gaze Minimal response to commands Not said occasionally responsive questions according to family Surgical incision well approximated with intact harsha, no evident drainage, erythema or streaking. Lab, Micro, Other Results Laboratory Tests Test 03/14/17 10:45 Sodium Level 137 MEQ/L Potassium Level 4.8 MEQ/L Chloride Level 98 MEQ/L Carbon Dioxide Level 27.9 MEQ/L Anion Gap 11 MEQ/L Blood Urea Nitrogen 8 MG/DL Creatinine 0.28 MG/DL Estimat Glomerular Filtration 296 ML/MIN Rate Random Glucose 113 MG/DL Calcium Level 9.1 MG/DL Total Bilirubin 0.2 MG/DL Aspartate Amino Transf 59 U/L (AST/SGOT) Alanine Aminotransferase 82 U/L (ALT/SGPT) Alkaline Phosphatase 118 U/L Total Protein 6.8 GM/DL Albumin 3.0 GM/DL Phenytoin (Dilantin) Level 16.0 MCG/ML Medical Decision Making Impression and Plan Impression: 1. Stable neurologic exam status post placement craniotomy bone flap. Postoperative CT scan head 03/06/17 satisfactory 2. Upper extremity venous thrombosis Plan: CT scan head images reviewed. Discussed with family May begin intravenous heparin from neurosurgery standpoint Continue therapies Continued on chemical DVT prophylaxis Continuing anticonvulsants per neurology Victor Hugo Gibson MD Mar 14, 2017 16:39
[2017-03-14] MEDS ORDERED: ENOXAPARIN SODIUM 100 MG/ML SYRINGE SQ SCH (16:45)
[2017-03-14] MEDS: ENOXAPARIN SODIUM 60 MG/0.6 ML SYRINGE SQ SCH (18:48)
[2017-03-14] MEDS: FAMOTIDINE 20 MG TAB PO SCH (21:40)
[2017-03-15] VITALS (8 sets, daily range): BP systolic 118–138; BP diastolic 66–88; PULSE 109–126; RESP 20–24; TEMP 98.2–100.3; O2SAT 97–100
[2017-03-15] MEDS: RESP: ALBUTEROL 2.5 MG/IPRATROPIUM 0.5 MG NEB (SCH) NEB ×6 (00:47→19:57)
[2017-03-15] MEDS: METOPROLOL TARTRATE 25 MG TAB PO SCH ×3 (02:00→20:12)
[2017-03-15] MEDS: ARTIFICIAL TEARS OPTH SOLN 15 ML BTL EACH EYE SCH ×3 (06:49→20:26)
[2017-03-15] MEDS: ENOXAPARIN SODIUM 60 MG/0.6 ML SYRINGE SQ SCH ×2 (06:50→20:13)
[2017-03-15] MEDS: FOSPHENYTOIN SODIUM 100 MG PE/2 ML VIAL IV SCH ×3 (06:51→22:01)
[2017-03-15] MEDS: LACOSAMIDE 50 MG TAB G-TUBE SCH ×2 (09:05→22:01)
[2017-03-15] MEDS: DOCUSATE SODIUM 50 MG/SENNA 8.6 MG TAB PO SCH ×2 (09:05→21:00)
[2017-03-15] MEDS: BROMOCRIPTINE MESYLATE 2.5 MG TAB PO SCH ×2 (09:05→22:02)
[2017-03-15] MEDS: LANSOPRAZOLE SOLUTAB 30 MG TAB NG SCH (09:05)
--- NOTE | 2017-03-15 09:13 | HHI.PR ---
Subjective Remarks The patient has been seen and examined this morning. Some tachycardia overnight and this morning, but after her am metoprolol is current 100. Pulse ox 100%, T piece in place, FiO2 28%. Mother at bedside, asked to discussed IVC , all her questions answered. Objective Vital Signs Date Time Temp Pulse Resp B/P Pulse Ox O2 Delivery O2 Flow Rate FiO2 03/15/17 08:56 100 T-piece 28 03/15/17 08:56 100 T-piece 28 03/15/17 08:37 99.4 126 20 124/66 99 03/15/17 06:45 98.2 120 24 138/80 98 03/15/17 00:00 99.1 114 23 135/88 97 03/14/17 22:00 99.6 125 23 140/90 98 03/14/17 20:12 100 T-piece 5.00 28 03/14/17 20:12 100 T-piece 5.00 28 03/14/17 20:00 125 03/14/17 20:00 T-Piece 28 Humidified 03/14/17 16:20 98.7 113 18 114/88 100 03/14/17 14:22 100 T-piece 6.00 28 03/14/17 12:14 98.7 120 18 131/66 100 03/14/17 10:33 18 03/14/17 09:33 T-Piece 6.00 28 Humidified I/O 03/14/17 03/14/17 03/14/17 03/15/17 03/15/17 03/15/17 07:00 15:00 23:00 07:00 15:00 23:00 Intake Total 0 ml 0 ml Output Total 1250 ml 700 ml 1000 ml Balance -1250 ml -700 ml -1000 ml Intake Oral 0 ml 0 ml Output Urine Total 1250 ml 700 ml 1000 ml # Bowel Movements 1 1 Result Diagram: 03/13/17 0948 03/14/17 1045 Imaging Last Impressions Head CT 03/14/17 0000 Signed Impressions: Service Date/Time: Tuesday, March 14, 2017 14:18 - CONCLUSION: 1. Stable CT examination with a subdural collection over the left frontal lobe causing effacement of the sulci on the left side. Significant midline shift is not seen. The basal cisterns are open. 2. Old areas of infarction at the right thalamus, right occipital lobe and medial right temporal lobe. Paul Rudd MD Upper Extremity Ultrasound 03/13/17 0000 Signed Impressions: Service Date/Time: Monday, March 13, 2017 21:49 - CONCLUSION: Acute occlusive thrombus involving the basilic and brachial veins. Jesse Waite Jr., MD Brain MRI 03/06/17 0000 Signed Impressions: Service Date/Time: Monday, March 06, 2017 20:35 - CONCLUSION: Fluid accumulation over the left frontal convexity not well seen or appreciated on CT examination. Mild associated mass effect. Paul Bob MD Chest X-Ray 03/04/17 0000 Signed Impressions: Service Date/Time: Saturday, March 04, 2017 07:40 - CONCLUSION: Underinflated exam. No acute cardiopulmonary abnormality is identified. Paul Warren MD Procedures Replacement craniotomy bone flap 03/06/17 Side: Left Objective Remarks GENERAL: Nonverbal and NAD. SKIN: Warm and dry. No rashes noted. HEAD: s/p bone flap; incision with harsha, c/d/i EYES: No scleral icterus. No injection or drainage. NECK: Supple, trachea midline. No JVD or lymphadenopathy. CARDIOVASCULAR: Regular rate and rhythm without murmurs, gallops, or rubs. +2 peripheral pulses. RESPIRATORY: Breath sounds equal bilaterally. No accessory muscle use. Anterior breath sounds are CTAB. GASTROINTESTINAL: Abdomen soft, non-tender, nondistended. Feeding tube in place , no surrounding erythema or drainage.Llanes in place, clear urine draining. MUSCULOSKELETAL: No cyanosis, or edema. Minimal, trace edema in bilateral upper extremities. No LE swelling or calf pain noted. 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 Management per neurosurgery Low-grade fever, recurrent: Low grade fever 03/13 at 1300. Currently afebrile and continue to monitor for sign of infection. Tylenol when necessary. Chronic respiratory failure. Patient is tolerating T piece at 28% oxygen with good O2 saturations. Aggressive pulmonary toilet. Pulmonology following the patient. Continue with Levsin for secretions. Trach secretion sent for culture 03/13/17. Results pending. - LUE/RUE DVT: Doppler positive for RUE and LUE DVT. Neurosurgery has cleared patient for anticoagulation. She is currently on lovenox 50 mg SQ BID. Will likely require treatment for 3 months. Likely coumadin for usp treatment in case reversal agent needed. Seizure, breakthrough: Currently on Vimpat 50mg BID and Dilantin 150mg Q8H as well as Phenobarbital 65mg BID. Phenytoin level appropriate. okay lab draws from foot given RUE DVT. s/p Keppra . EEG noted [id number] encephalopathy with left hemisphere slowing. Multiple pelvic fractures. Transverse process fractures, lumbar region: Continue physical therapy, occupational therapy, speech therapy Sinus tachycardia: on metoprolol 25 mg TID. Continue monitor heart rate. Low blood pressure: Currently normotensive. Consider Midodrine if recurrence of low BP. Records indicate MRSA pneumonia: Patient completed vancomycin on 02/18. . GI protection with Prevacid DVT prevention: Lovenox, as above. case discussed with patients nurse and with patients mother. Discharge Planning Complicated discharge. Patient was admitted here from [facility], [place] due to inability to wean patient off trach > 30 days. She still requires ventilator support at this time, pulmonology is managing this. Problem Qualifiers (1) Deep venous thrombosis of upper extremity: Qualified Code: I82.623 - Acute deep vein thrombosis (DVT) of both upper extremities, unspecified vein Trini Lisa MD R3 Mar 15, 2017 09:12
[2017-03-15] MEDS: D5-1/2 NS + KCL 20 MEQ INJ 1,000 ML IV SCH ×2 (10:08→17:49)
[2017-03-15] MEDS: ACETAMINOPHEN 325 MG TAB PO PRN ×2 (15:22→20:26)
--- NOTE | 2017-03-15 18:59 | HHI.NSPN ---
History Interval History 03/06/17: Replacement craniotomy bone flap 03/14/17: Heparin IV started for DVT. CT Head satisfactory Exam Results Vital Signs Date Time Temp Pulse Resp B/P Pulse Ox O2 Delivery O2 Flow Rate FiO2 03/15/17 16:24 100.3 119 20 119/74 100 03/15/17 09:04 T-Piece 6.00 28 Humidified Intake and Output 03/14/17 03/14/17 03/15/17 08:00 16:00 00:00 Intake Total 0 ml Output Total 1250 ml 700 ml Balance -1250 ml -700 ml Physical Examination A little more alert this morning Mild spontaneous eye opening. Some movement of eyelids to voice with mild occasional eye opening for her family. Smiles intermittently for her family Disconjugate gaze Following occasional commands to grasp with the right hand and make a kissing movement with her lips for her family. Surgical incision well approximated with intact harsha, no evident drainage, erythema or streaking. Medical Decision Making Impression and Plan Impression: 1. Stable neurologic exam status post placement craniotomy bone flap. Postoperative CT scan head 03/06/17 satisfactory 2. Upper extremity venous thrombosis Plan: Discussed with family Heparin drip for upper extremity venous thrombosis Continue therapies Continuing anticonvulsants per neurology Victor Hugo Gibson MD Mar 15, 2017 18:59
[2017-03-15] MEDS: SODIUM CHLORIDE 0.9% FLUSH 5 ML FLUSH IVF SCH ×2 (20:25→21:00)
[2017-03-15] MEDS: BISACODYL 10 MG SUPP RECTAL SCH (20:25)
[2017-03-15] MEDS: FAMOTIDINE 20 MG TAB PO SCH (22:02)
[2017-03-16] VITALS (13 sets, daily range): BP systolic 102–136; BP diastolic 62–81; PULSE 78–130; RESP 20; TEMP 96–98.7; O2SAT 96–100
[2017-03-16] MEDS: RESP: ALBUTEROL 2.5 MG/IPRATROPIUM 0.5 MG NEB (SCH) NEB ×6 (00:01→19:35)
[2017-03-16] MEDS: METOPROLOL TARTRATE 25 MG TAB PO SCH ×3 (02:25→17:16)
[2017-03-16] MEDS: ENOXAPARIN SODIUM 60 MG/0.6 ML SYRINGE SQ SCH ×2 (05:41→17:16)
[2017-03-16] MEDS: FOSPHENYTOIN SODIUM 100 MG PE/2 ML VIAL IV SCH ×2 (05:42→13:54)
[2017-03-16] MEDS: D5-1/2 NS + KCL 20 MEQ INJ 1,000 ML IV SCH ×2 (05:43→13:33)
[2017-03-16] MEDS: ARTIFICIAL TEARS OPTH SOLN 15 ML BTL EACH EYE SCH ×5 (05:43→22:46)
[2017-03-16] MEDS: BISACODYL 10 MG SUPP RECTAL SCH (09:00)
[2017-03-16] MEDS: DOCUSATE SODIUM 50 MG/SENNA 8.6 MG TAB PO SCH ×2 (09:18→21:00)
[2017-03-16] MEDS: BROMOCRIPTINE MESYLATE 2.5 MG TAB PO SCH ×2 (09:18→22:45)
[2017-03-16] MEDS: LANSOPRAZOLE SOLUTAB 30 MG TAB NG SCH (09:18)
[2017-03-16] MEDS: LACOSAMIDE 50 MG TAB G-TUBE SCH ×2 (09:19→22:45)
[2017-03-16] MEDS: SODIUM CHLORIDE 0.9% FLUSH 5 ML FLUSH IVF SCH ×2 (09:20→21:00)
[2017-03-16 10:56] LABS: AUTOMATED NEUTROPHIL # 5.5 TH/MM3 (1.8-7.7); BASOPHIL # 0.1 TH/MM3 (0-0.2); BASOPHIL % 0.7 % (0.0-2.0); EOSINOPHIL # 0.4 TH/MM3 (0-0.4); EOSINOPHIL % 4.2 % (0.0-4.0); HEMATOCRIT 30.5 % (35.0-46.0); HEMO FLAGS DIFF FINAL; LYMPH % 21.7 % (9.0-44.0); LYMPHOCYTE # 1.8 TH/MM3 (1.0-4.8); MEAN CELL VOLUME 84.5 FL (80.0-100.0); MEAN CORPUSCULAR HEMOGLOBIN 28.8 PG (27.0-34.0); MEAN CORPUSCULAR HGB CONC 34.1 % (32.0-36.0); MONO % 8.6 % (0.0-8.0); NEUT % 64.8 % (16.0-70.0); PLATELET COUNT 440 TH/MM3 (150-450); RED BLOOD COUNT 3.61 MIL/MM3 (4.00-5.30); RED CELL DISTRIBUTION WIDTH 15.8 % (11.6-17.2); WHITE BLOOD COUNT 8.4 TH/MM3 (4.0-11.0)
--- NOTE | 2017-03-16 11:05 | HHI.NSPN ---
([place]) Note Status Status: Progress Note ([place]) Interval History Interval History Ms. Laurent is a 22 y/o female with a history of TBI 03/05: To OR for: Replacement left craniotomy bone flap Left frontotemporoparietal duraplasty 03/06: POD # 1 replacement craniotomy bone flap 03/07: today mildly opening eyes, however not following commands 03/08: f/u CT Head completed, more awake today 03/09: Patient opens eyes spontaneously but not tracking 03/10: Patient opens eyes to noxious stimuli, Nursing reports she is more responsive to than staff 03/11: Patient transferred to regular med/surg floor 03/12: Eyes open, smiles, still tachycardiac 03/13: Patient drowsy today, minimally follows commands 03/14/17: Heparin IV started for DVT. CT Head satisfactory 03/16: Patient awake, OT at bedside doing LUE exercises ([place]) Labs, Micro, & Vital Signs Constitutional Vital Signs Date Time Temp Pulse Resp B/P Pulse Ox O2 Delivery O2 Flow Rate FiO2 03/16/17 08:00 100 T-piece 28 03/16/17 07:30 98.7 119 20 133/81 100 03/16/17 04:00 98.5 119 20 120/62 99 03/16/17 03:30 99 03/16/17 02:31 113 03/16/17 00:01 100 T-piece 28 03/16/17 00:01 100 T-piece 6.00 28 03/16/17 00:00 98.3 130 20 136/80 96 03/15/17 20:00 T-Piece 28 Humidified 03/15/17 20:00 124 03/15/17 20:00 98.9 121 20 118/79 100 03/15/17 16:24 100.3 119 20 119/74 100 03/15/17 12:40 99.0 112 20 129/69 100 03/16/17 07:00 Intake Total 5132 ml Output Total 3475 ml Balance 1657 ml ([place]) Review of Systems/Exam ROS Unable to obtain ROS due to patient's mental status. Exam CTAB w/o W/R/R, equal excursion, non-laboured, on trach collar. RRR w/o M/G/R. Abdomen soft & nontender, bowel sounds present. Eyes open, no tracking, PERRL, forces eyelids closed when pupils examined. Smiled to command, follows some commands. Slight hand squeeze on right, questionable trace hand squeeze on left, moving RLE on own w/o difficulty, no movement of LLE noted. Surgical incision well approximated with intact harsha, no evident drainage, erythema or streaking. ([place]) Medications Current Medications Current Medications Medications (Trade) Dose Ordered Sig/Raji Route Start Time Stop Time Status Last Admin (Tylenol) 650 mg Q4H PRN PO 02/17/17 00:30 03/15/17 15:22 (Zofran Inj) 4 mg Q6H PRN IVP 02/17/17 00:30 (Milk Of Magnesia Liq) 30 ml Q12H PRN PO 02/17/17 00:30 (Narcan Inj) 0.4 mg UNSCH PRN IV 02/17/17 00:30 Miscellaneous Information Patient in critical care unit? Ass... Q361D XX 02/17/17 04:15 02/17/17 04:15 (Dulcolax Supp) 10 mg DAILY RECTAL 02/18/17 09:00 03/12/17 09:39 (Parlodel) 2.5 mg Q12HR PO 02/17/17 21:00 03/16/17 09:18 (Pepcid) 20 mg HS PO 02/17/17 21:00 03/15/17 22:02 (Levsin) 0.125 mg Q4H PRN PO 02/17/17 11:15 (Motrin Liq) 200 mg Q6H PRN PO 02/17/17 11:15 03/11/17 13:35 (Luminal Inj) 65 mg BID IV 02/17/17 12:00 03/16/17 09:20 (Malu-Colace) 1 tab BID PO 02/17/17 21:00 03/16/17 09:18 (Lactulose Liq) 30 ml DAILY PRN PO 02/19/17 07:30 (Prevacid Odt) 30 mg DAILY NG 02/19/17 09:00 03/16/17 09:18 (Roxicodone) 5 mg Q4H PRN PEG 02/19/17 08:00 03/15/17 09:55 (Tears Naturale Opth Soln) 1 drop Q6HR EACH EYE 02/22/17 19:00 03/16/17 05:43 (Vimpat) 50 mg BID G-TUBE 02/25/17 09:00 03/16/17 09:19 (Pill Splitter) 1 ea UNSCH PRN OTHER 03/01/17 23:45 (NS Flush) 2 ml UNSCH PRN IVF 03/05/17 18:00 IV Flush 2 ml 2 ml BID IVF 03/05/17 21:00 03/16/17 09:20 (D5-1/2 NS + KCl 20 Meq Inj) 1,000 ml @ 100 mls/hr Q10H IV 03/05/17 17:49 03/16/17 05:43 (Lopressor) 25 mg Q8H PO 03/06/17 18:00 03/16/17 09:18 (Cerebyx Inj) 150 mgpe Q8HR IV 03/06/17 22:00 03/16/17 05:42 (Lovenox Inj) 50 mg Q12H SQ 03/14/17 18:00 03/16/17 05:41 ([place]) Medical Decision Making MDM Remarks 22 y/o female with a history of TBI POD # 11 s/p craniotomy for bone flap replacement Neurological function appears stable Upper extremity venous thrombosis ([place]) Plan Plan Remarks Discussed plan of care with Continue neuro checks Continue anticonvulsants per Neurology Continue heparin drip for upper extremity DVT Continue mechanical DVT prophylaxis Primary management & HR mgmt per Trauma Staple removal either later today or tomorrow ([place]) Attending Statement I have personally seen and examined the patient on the date of this note. Pertinent documentation and study results have been reviewed by the undersigned. I have personally developed the treatment plan and performed medical decision making. Agree with findings, exam, and treatment plan as noted above. Plan to remove harsha today. Seizure medications changed to PEG tube Discussed with family Discussed with nursing staff (Victor Hugo Gibson MD) [place] Mar 16, 2017 11:05 Victor Hugo Gibson MD Mar 16, 2017 21:08
[2017-03-16 11:19] LABS: POTASSIUM 4.1 MEQ/L (3.5-5.1)
--- NOTE | 2017-03-16 12:50 | HHI.PR ---
Subjective Remarks Unable to provide history secondary to TBI. Tachycardia is stable when seen. Longterm Care is needed. Objective Vital Signs Date Time Temp Pulse Resp B/P Pulse Ox O2 Delivery O2 Flow Rate FiO2 03/16/17 11:21 100 T-piece 28 03/16/17 11:18 106 03/16/17 08:00 100 T-piece 28 03/16/17 07:30 98.7 119 20 133/81 100 03/16/17 04:00 98.5 119 20 120/62 99 03/16/17 03:30 99 03/16/17 02:31 113 03/16/17 00:01 100 T-piece 28 03/16/17 00:01 100 T-piece 6.00 28 03/16/17 00:00 98.3 130 20 136/80 96 03/15/17 20:00 T-Piece 28 Humidified 03/15/17 20:00 124 03/15/17 20:00 98.9 121 20 118/79 100 03/15/17 16:24 100.3 119 20 119/74 100 I/O 03/15/17 03/15/17 03/15/17 03/16/17 03/16/17 03/16/17 07:00 15:00 23:00 07:00 15:00 23:00 Intake Total 0 ml 5132 ml 1272 ml Output Total 1000 ml 1450 ml 1125 ml 900 ml 850 ml Balance -1000 ml 3682 ml -1125 ml -900 ml 422 ml Intake Oral 0 ml IV Total 2911 ml 1272 ml Other 2221 ml Output Urine Total 1000 ml 1450 ml 1125 ml 900 ml 850 ml # Bowel Movements 1 0 0 Result Diagram: 03/16/17 1027 03/16/17 1027 Procedures Replacement craniotomy bone flap 03/06/17 Side: Left Objective Remarks GENERAL: NAD, A&Ox0 SKIN: Warm and dry. HEAD: Normocephalic. EYES: No scleral icterus. No injection or drainage. NECK: Supple, trachea midline. No JVD or lymphadenopathy. CARDIOVASCULAR: Regular rate and rhythm without murmurs, gallops, or rubs. RESPIRATORY: Breath sounds equal bilaterally. No accessory muscle use. GASTROINTESTINAL: Abdomen soft, non-tender, nondistended. MUSCULOSKELETAL: No cyanosis, or edema. contortions related to TBI. NEURO: Global deficits from TBI, unresponsive Medications and IVs Administered Medications Medications (Trade) Dose Ordered Sig/Raji Route PRN Reason Start Time Stop Time Status Last Admin Dose Admin Acetaminophen (Tylenol) 650 mg Q4H PRN PO TEMP > 100.4 02/17/17 00:30 03/15/17 15:22 Miscellaneous Information Patient in critical care unit? Ass... Q361D XX 02/17/17 04:15 02/17/17 04:15 Bisacodyl (Dulcolax Supp) 10 mg DAILY RECTAL 02/18/17 09:00 03/12/17 09:39 Bromocriptine Mesylate (Parlodel) 2.5 mg Q12HR PO 02/17/17 21:00 03/16/17 09:18 Famotidine (Pepcid) 20 mg HS PO 02/17/17 21:00 03/15/17 22:02 Ibuprofen (Motrin Liq) 200 mg Q6H PRN PO temp>101 02/17/17 11:15 03/11/17 13:35 Phenobarbital Sodium (Luminal Inj) 65 mg BID IV 02/17/17 12:00 03/16/17 09:20 Senna/Docusate Sodium (Malu-Colace) 1 tab BID PO 02/17/17 21:00 03/16/17 09:18 Lansoprazole (Prevacid Odt) 30 mg DAILY NG 02/19/17 09:00 03/16/17 09:18 Oxycodone HCl (Roxicodone) 5 mg Q4H PRN PEG PAIN 4-6 02/19/17 08:00 03/15/17 09:55 Artificial Tears (Tears Naturale Opth Soln) 1 drop Q6HR EACH EYE 02/22/17 19:00 03/16/17 12:28 Lacosamide (Vimpat) 50 mg BID G-TUBE 02/25/17 09:00 03/16/17 09:19 IV Flush 2 ml 2 ml BID IVF 03/05/17 21:00 03/16/17 09:20 Potassium Chloride/Dextrose/ Sod Cl (D5-1/2 NS + KCl 20 Meq Inj) 1,000 ml @ 100 mls/hr Q10H IV 03/05/17 17:49 03/16/17 05:43 Metoprolol Tartrate (Lopressor) 25 mg Q8H PO 03/06/17 18:00 03/16/17 09:18 Fosphenytoin Sodium (Cerebyx Inj) 150 mgpe Q8HR IV 03/06/17 22:00 03/16/17 05:42 Enoxaparin Sodium (Lovenox Inj) 50 mg Q12H SQ 03/14/17 18:00 03/16/17 05:41 A/P Problem List: (1) Breakthrough seizure ICD Code: G40.919 (2) Acute on chronic respiratory failure after trauma ICD Code: J96.20 (3) Trauma ICD Code: T14.90 (4) Subdural hematoma ICD Code: I62.00 (5) Closed head injury ICD Code: S09.90XA Assessment and Plan A/P: 22 yrs old female Traumatic brain injury: Will need alf care Unlikely to be functional again s/p replacement craniotomy bone flap surgery 03/06/17 Subdural hematoma. Management per neurosurgery Low-grade fever, recurrent: Follow for recurrence PRN Tylenol Chronic respiratory failure Blow by trache oxygenation Follow oxygen saturations Pulmonary toilet Pulmonology following Levsin for secreations Follow trache cultures LUE/RUE DVT: Lovenox 50mg SQ BID for now Coumadin may be needed intermission coordinator Treatment planned for 3 months right now Seizure, breakthrough: Continue Vimpat 50mg BID and Dilantin 150mg Q8H as well as Phenobarbital 65mg BID Neurology if recurrence is present Multiple pelvic fractures. Transverse process lumbar fractures Continue physical therapy Continue occupational therapy Continue speech therapy Sinus tachycardia: Continue metoprolol 25 mg TID. Continue monitor heart rate. Low blood pressure: Resolved Midodrine if needed, for recurrence Resolved MRSA pneumonia: completed vancomycin on 02/18. . GI prophylaxis protection with Prevacid DVT prevention Valeriano Russ MD Mar 16, 2017 12:50
[2017-03-16] MEDS ORDERED: ONDANSETRON ODT 4 MG TAB PO PRN (21:00)
[2017-03-16] MEDS: PHENobarbital ELIX 20 MG/5 ML CUP PEG SCH (22:38)
[2017-03-16] MEDS: PHENYTOIN SUSP 100 MG/4 ML CUP PEG SCH (22:39)
[2017-03-16] MEDS: FAMOTIDINE 20 MG TAB PO SCH (22:45)
[2017-03-17] VITALS (10 sets, daily range): BP systolic 111–142; BP diastolic 62–93; PULSE 102–121; RESP 18–22; TEMP 95.7–98.9; O2SAT 99–100
[2017-03-17] MEDS: RESP: ALBUTEROL 2.5 MG/IPRATROPIUM 0.5 MG NEB (SCH) NEB ×7 (02:31→23:58)
[2017-03-17] MEDS: METOPROLOL TARTRATE 25 MG TAB PO SCH ×3 (02:32→17:10)
[2017-03-17] MEDS: PHENYTOIN SUSP 100 MG/4 ML CUP PEG SCH ×3 (06:21→21:07)
[2017-03-17] MEDS: ENOXAPARIN SODIUM 60 MG/0.6 ML SYRINGE SQ SCH ×2 (06:25→17:10)
[2017-03-17] MEDS: ARTIFICIAL TEARS OPTH SOLN 15 ML BTL EACH EYE SCH ×3 (06:30→17:11)
[2017-03-17] MEDS: PHENobarbital ELIX 20 MG/5 ML CUP PEG SCH ×2 (08:38→21:08)
[2017-03-17] MEDS: BROMOCRIPTINE MESYLATE 2.5 MG TAB PO SCH ×2 (08:38→21:08)
[2017-03-17] MEDS: LANSOPRAZOLE SOLUTAB 30 MG TAB NG SCH (08:38)
[2017-03-17] MEDS: DOCUSATE SODIUM 50 MG/SENNA 8.6 MG TAB PO SCH ×2 (08:38→21:09)
[2017-03-17] MEDS: LACOSAMIDE 50 MG TAB G-TUBE SCH ×2 (08:38→21:07)
[2017-03-17] MEDS: SODIUM CHLORIDE 0.9% FLUSH 5 ML FLUSH IVF SCH ×2 (08:38→21:00)
[2017-03-17] MEDS: BISACODYL 10 MG SUPP RECTAL SCH (08:39)
--- NOTE | 2017-03-17 10:00 | HHI.PR ---
Subjective Remarks seen with at bedside she smiled after repeated encouraging from she is tolerating tube feedings moving both LE- but no purposeful movements minimal secretions from trach Objective Vitals Vital Signs Date Time Temp Pulse Resp B/P Pulse Ox O2 Delivery O2 Flow Rate FiO2 03/17/17 07:53 96.3 119 22 136/82 100 03/17/17 07:35 100 T-piece 6.00 28 03/17/17 07:35 100 T-piece 6.00 28 03/17/17 06:09 97.8 105 20 140/93 100 03/17/17 02:06 98.6 121 20 128/75 100 03/16/17 21:14 98.2 124 20 120/62 100 03/16/17 19:35 99 T-piece 6.00 28 03/16/17 19:35 99 6.00 28 03/16/17 15:50 97.9 129 20 125/75 100 03/16/17 11:21 100 T-piece 28 03/16/17 11:18 106 03/16/17 11:00 96.0 78 20 102/66 96 I/O 03/16/17 03/16/17 03/16/17 03/17/17 03/17/17 03/17/17 07:00 15:00 23:00 07:00 15:00 23:00 Intake Total 1272 ml 1677 ml Output Total 900 ml 1700 ml 700 ml 350 ml Balance -900 ml -428 ml 977 ml -350 ml IV Total 1272 ml 875 ml Tube Feeding 712 ml Tube Irrigant 90 ml Output Urine Total 900 ml 1700 ml 700 ml 350 ml # Bowel Movements 0 5 Result Diagram: 03/16/17 1027 03/16/17 1027 Imaging Last Impressions Head CT 03/14/17 0000 Signed Impressions: Service Date/Time: Tuesday, March 14, 2017 14:18 - CONCLUSION: 1. Stable CT examination with a subdural collection over the left frontal lobe causing effacement of the sulci on the left side. Significant midline shift is not seen. The basal cisterns are open. 2. Old areas of infarction at the right thalamus, right occipital lobe and medial right temporal lobe. Paul Rudd MD Upper Extremity Ultrasound 03/13/17 0000 Signed Impressions: Service Date/Time: Monday, March 13, 2017 21:49 - CONCLUSION: Acute occlusive thrombus involving the basilic and brachial veins. Jesse Waite Jr., MD Brain MRI 03/06/17 0000 Signed Impressions: Service Date/Time: Monday, March 06, 2017 20:35 - CONCLUSION: Fluid accumulation over the left frontal convexity not well seen or appreciated on CT examination. Mild associated mass effect. Paul Bob MD Chest X-Ray 03/04/17 0000 Signed Impressions: Service Date/Time: Saturday, March 04, 2017 07:40 - CONCLUSION: Underinflated exam. No acute cardiopulmonary abnormality is identified. Paul Warren MD Objective Remarks incisions- head- clean baseline- stuporous anicteric tracheostomy in place lungs no rales or wheezes regular rhythm abdomen- PEG in place extremities - UE- atrophied LE- atrophied Procedures Replacement craniotomy bone flap 03/06/17 Side: Left A/P Problem List: (1) Breakthrough seizure ICD Code: G40.919 Status: Chronic (2) Seizure disorder ICD Code: G40.909 Status: Acute (3) Major neurocognitive disorder as late effect of traumatic brain injury without behavioral disturbance ICD Code: S06.9X9S Status: Acute (4) Closed head injury ICD Code: S09.90XA Status: Acute (5) Subdural hematoma ICD Code: I62.00 Status: Acute (6) Pelvic fracture ICD Code: S32.9XXA Status: Acute (7) Kidney contusion ICD Code: S37.019A Status: Acute (8) Liver laceration ICD Code: S36.113A Status: Acute (9) Trauma ICD Code: T14.90 Status: Acute (10) Sinus tachycardia ICD Code: R00.0 Status: Acute (11) 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 Transverse process lumbar fractures Continue physical therapy Continue occupational therapy Continue speech therapy Sinus tachycardia: Continue metoprolol 25 mg TID. Continue monitor heart rate. Low blood pressure: Resolved Midodrine if needed, for recurrence Resolved MRSA pneumonia: completed vancomycin on 02/18. . GI prophylaxis protection with Prevacid. continue tube feedings at 60 cc/hr DVT prevention Lovenox Have a very supportive at bedside Problem Qualifiers (1) Deep venous thrombosis of upper extremity: Qualified Code: I82.623 - Acute deep vein thrombosis (DVT) of both upper extremities, unspecified vein Aidan Tim MD Mar 17, 2017 10:00
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
[2017-03-17] MEDS: FAMOTIDINE 20 MG TAB PO SCH (21:08)
[2017-03-18] VITALS (12 sets, daily range): BP systolic 116–168; BP diastolic 57–93; PULSE 111–127; RESP 18–20; TEMP 96.9–99.8; O2SAT 97–100
[2017-03-18] MEDS: METOPROLOL TARTRATE 25 MG TAB PO SCH ×3 (01:58→17:27)
[2017-03-18] MEDS: ARTIFICIAL TEARS OPTH SOLN 15 ML BTL EACH EYE SCH ×5 (01:58→23:40)
[2017-03-18] MEDS: RESP: ALBUTEROL 2.5 MG/IPRATROPIUM 0.5 MG NEB (SCH) NEB ×5 (04:12→20:58)
[2017-03-18] MEDS: PHENYTOIN SUSP 100 MG/4 ML CUP PEG SCH ×3 (06:24→21:17)
[2017-03-18] MEDS: ENOXAPARIN SODIUM 60 MG/0.6 ML SYRINGE SQ SCH ×2 (06:25→17:27)
--- NOTE | 2017-03-18 09:26 | HHI.PR ---
Subjective Remarks seen with at bedside tolerating TF minimal secretions through trach- d/w RT Objective Vitals Vital Signs Date Time Temp Pulse Resp B/P Pulse Ox O2 Delivery O2 Flow Rate FiO2 03/18/17 06:13 98.7 113 19 125/75 100 03/18/17 04:13 99 T-piece 28 03/18/17 01:19 98.5 127 19 116/57 98 03/18/17 00:03 98 T-piece 28 03/17/17 20:00 98.9 117 18 117/62 100 03/17/17 16:12 100 T-piece 6.00 28 03/17/17 16:09 100 T-piece 6.00 28 03/17/17 15:53 95.7 116 22 142/92 99 03/17/17 11:50 97.7 102 22 111/69 100 03/17/17 10:15 112 I/O 03/17/17 03/17/17 03/17/17 03/18/17 03/18/17 03/18/17 07:00 15:00 23:00 07:00 15:00 23:00 Intake Total 391 ml Output Total 350 ml 850 ml 1000 ml Balance -350 ml -459 ml -1000 ml Tube Feeding 331 ml Tube Irrigant 60 ml Output Urine Total 350 ml 850 ml 1000 ml # Bowel Movements 0 Result Diagram: 03/16/17 1027 03/16/17 1027 Imaging Last Impressions Head CT 03/14/17 0000 Signed Impressions: Service Date/Time: Tuesday, March 14, 2017 14:18 - CONCLUSION: 1. Stable CT examination with a subdural collection over the left frontal lobe causing effacement of the sulci on the left side. Significant midline shift is not seen. The basal cisterns are open. 2. Old areas of infarction at the right thalamus, right occipital lobe and medial right temporal lobe. Paul Rudd MD Upper Extremity Ultrasound 03/13/17 0000 Signed Impressions: Service Date/Time: Monday, March 13, 2017 21:49 - CONCLUSION: Acute occlusive thrombus involving the basilic and brachial veins. Jesse Waite Jr., MD Brain MRI 03/06/17 0000 Signed Impressions: Service Date/Time: Monday, March 06, 2017 20:35 - CONCLUSION: Fluid accumulation over the left frontal convexity not well seen or appreciated on CT examination. Mild associated mass effect. Paul Bob MD Chest X-Ray 03/04/17 0000 Signed Impressions: Service Date/Time: Saturday, March 04, 2017 07:40 - CONCLUSION: Underinflated exam. No acute cardiopulmonary abnormality is identified. Paul Warren MD Objective Remarks incisions- head- clean patient appeared to react on the voice of her anicteric tracheostomy in place lungs no rales or wheezes regular rhythm abdomen- PEG in place extremities - UE- atrophied LE- atrophied Procedures Replacement craniotomy bone flap 03/06/17 Urinary Catheter: Yes Assessment to: Continue [place] insert reason: Prolonged Immobilization Side: Left A/P Problem List: (1) Breakthrough seizure ICD Code: G40.919 Status: Chronic (2) Seizure disorder ICD Code: G40.909 Status: Acute (3) Major neurocognitive disorder as late effect of traumatic brain injury without behavioral disturbance ICD Code: S06.9X9S Status: Acute (4) Closed head injury ICD Code: S09.90XA Status: Acute (5) Subdural hematoma ICD Code: I62.00 Status: Acute (6) Pelvic fracture ICD Code: S32.9XXA Status: Acute (7) Kidney contusion ICD Code: S37.019A Status: Acute (8) Liver laceration ICD Code: S36.113A Status: Acute (9) Trauma ICD Code: T14.90 Status: Acute (10) Sinus tachycardia ICD Code: R00.0 Status: Acute (11) 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 Transverse process lumbar fractures Continue physical therapy Continue occupational therapy Continue speech therapy Sinus tachycardia: Continue metoprolol 25 mg TID. Continue monitor heart rate. Low blood pressure: Resolved Midodrine if needed, for recurrence Resolved MRSA pneumonia: completed vancomycin on 02/18. . GI prophylaxis protection with Prevacid. continue tube feedings at 60 cc/hr DVT prevention Lovenox Have a very supportive at bedside Problem Qualifiers (1) Deep venous thrombosis of upper extremity: Qualified Code: I82.623 - Acute deep vein thrombosis (DVT) of both upper extremities, unspecified vein Aidan Tim MD Mar 18, 2017 09:26
[2017-03-18] MEDS: BROMOCRIPTINE MESYLATE 2.5 MG TAB PO SCH ×2 (09:55→21:15)
[2017-03-18] MEDS: LACOSAMIDE 50 MG TAB G-TUBE SCH ×2 (09:55→21:15)
[2017-03-18] MEDS: LANSOPRAZOLE SOLUTAB 30 MG TAB NG SCH (09:55)
[2017-03-18] MEDS: PHENobarbital ELIX 20 MG/5 ML CUP PEG SCH ×2 (09:56→21:15)
[2017-03-18] MEDS: DOCUSATE SODIUM 50 MG/SENNA 8.6 MG TAB PO SCH ×2 (09:56→21:15)
[2017-03-18] MEDS: SODIUM CHLORIDE 0.9% FLUSH 5 ML FLUSH IVF SCH ×2 (09:56→21:00)
[2017-03-18] MEDS: BISACODYL 10 MG SUPP RECTAL SCH (09:56)
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
[2017-03-18] MEDS: FAMOTIDINE 20 MG TAB PO SCH (21:15)
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
[2017-03-19] VITALS (11 sets, daily range): BP systolic 97–163; BP diastolic 55–92; PULSE 106–126; RESP 19–21; TEMP 95.8–99.5; O2SAT 94–100
[2017-03-19] MEDS: RESP: ALBUTEROL 2.5 MG/IPRATROPIUM 0.5 MG NEB (SCH) NEB ×6 (00:25→19:30)
[2017-03-19] MEDS: METOPROLOL TARTRATE 25 MG TAB PO SCH ×3 (01:40→17:27)
[2017-03-19] MEDS: PHENYTOIN SUSP 100 MG/4 ML CUP PEG SCH ×3 (05:17→21:57)
[2017-03-19] MEDS: ENOXAPARIN SODIUM 60 MG/0.6 ML SYRINGE SQ SCH ×2 (05:17→17:27)
[2017-03-19] MEDS: ARTIFICIAL TEARS OPTH SOLN 15 ML BTL EACH EYE SCH ×4 (05:17→23:06)
[2017-03-19 07:49] LABS: PHENOBARBITAL 18.7 MCG/ML (15.0-40.0)
[2017-03-19] MEDS: SODIUM CHLORIDE 0.9% FLUSH 5 ML FLUSH IVF SCH ×2 (09:22→21:00)
[2017-03-19] MEDS: LACOSAMIDE 50 MG TAB G-TUBE SCH ×2 (09:22→21:57)
[2017-03-19] MEDS: BISACODYL 10 MG SUPP RECTAL SCH (09:23)
[2017-03-19] MEDS: DOCUSATE SODIUM 50 MG/SENNA 8.6 MG TAB PO SCH ×2 (09:23→21:57)
[2017-03-19] MEDS: BROMOCRIPTINE MESYLATE 2.5 MG TAB PO SCH ×2 (09:23→21:58)
[2017-03-19] MEDS: PHENobarbital ELIX 20 MG/5 ML CUP PEG SCH ×2 (09:23→21:57)
[2017-03-19] MEDS: LANSOPRAZOLE SOLUTAB 30 MG TAB NG SCH (09:23)
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
--- NOTE | 2017-03-19 15:48 | HHI.NSPN ---
([place]) Note Status Status: Progress Note ([place]) Interval History Interval History Ms. Laurent is a 22 y/o female with a history of TBI 03/05: To OR for: Replacement left craniotomy bone flap Left frontotemporoparietal duraplasty 03/06: POD # 1 replacement craniotomy bone flap 03/07: today mildly opening eyes, however not following commands 03/08: f/u CT Head completed, more awake today 03/09: Patient opens eyes spontaneously but not tracking 03/10: Patient opens eyes to noxious stimuli, Nursing reports she is more responsive to than staff 03/11: Patient transferred to regular med/surg floor 03/12: Eyes open, smiles, still tachycardiac 03/13: Patient drowsy today, minimally follows commands. 03/14/17: Heparin IV started for DVT. CT Head satisfactory 03/16: Patient awake, OT at bedside doing LUE exercises 03/17: Patient sleeping, not responding to verbal stimuli, no apparent distress. Samantha to craniotomy incision removed yesterday. 03/18: Patient awake, follows some commands. 03/19: Patient asleep but awakens to verbal stimuli, follows commands but not consistently. ([place]) Labs, Micro, & Vital Signs Constitutional Vital Signs Date Time Temp Pulse Resp B/P Pulse Ox O2 Delivery O2 Flow Rate FiO2 03/19/17 12:00 98.1 120 21 163/69 96 03/19/17 08:29 100 T-piece 6.00 28 03/19/17 08:27 100 T-piece 6.00 28 03/19/17 08:00 98.5 120 21 146/65 94 03/19/17 04:47 99 T-piece 28 03/19/17 04:00 95.8 109 20 145/90 100 03/19/17 00:00 97.9 106 20 153/92 100 03/18/17 21:07 99 T-piece 28 03/18/17 21:00 99 Trach Collar 03/18/17 20:00 96.9 112 20 122/71 100 03/19/17 07:00 Intake Total 850 ml Output Total 1975 ml Balance -1125 ml ([place]) Review of Systems/Exam ROS Unable to obtain ROS due to patient's mental status. Exam HEENT: Surgical incision well approximated w/o any evident drainage, erythema or streaking. PERRRL. Resp: CTAB w/o W/R/R, equal excursion, non-laboured, trached, on trach collar. CV: RRR w/o M/G/R but fast, cap refill < 2 sec, radial & pedal pulses 2+ bilaterally, no pedal edema. GI: Abdomen soft & nontender, bowel sounds present. Enteral feeds by PEG. Neuro: Awake & alert, smiles to command, spontaneous movement of RUE and right foot, did wiggle toes of both feet & slight squeeze to right hand on command, functional splint is on LUE. ([place]) Medications Current Medications Current Medications Medications (Trade) Dose Ordered Sig/Raji Route Start Time Stop Time Status Last Admin (Tylenol) 650 mg Q4H PRN PO 02/17/17 00:30 03/15/17 15:22 (Milk Of Magnesia Liq) 30 ml Q12H PRN PO 02/17/17 00:30 (Narcan Inj) 0.4 mg UNSCH PRN IV 02/17/17 00:30 Miscellaneous Information Patient in critical care unit? Ass... Q361D XX 02/17/17 04:15 02/17/17 04:15 (Dulcolax Supp) 10 mg DAILY RECTAL 02/18/17 09:00 03/12/17 09:39 (Parlodel) 2.5 mg Q12HR PO 02/17/17 21:00 03/19/17 09:23 (Pepcid) 20 mg HS PO 02/17/17 21:00 03/18/17 21:15 (Levsin) 0.125 mg Q4H PRN PO 02/17/17 11:15 (Motrin Liq) 200 mg Q6H PRN PO 02/17/17 11:15 03/11/17 13:35 (Malu-Colace) 1 tab BID PO 02/17/17 21:00 03/19/17 09:23 (Lactulose Liq) 30 ml DAILY PRN PO 02/19/17 07:30 (Prevacid Odt) 30 mg DAILY NG 02/19/17 09:00 03/19/17 09:23 (Roxicodone) 5 mg Q4H PRN PEG 02/19/17 08:00 03/17/17 14:15 (Tears Naturale Opth Soln) 1 drop Q6HR EACH EYE 02/22/17 19:00 03/19/17 12:05 (Vimpat) 50 mg BID G-TUBE 02/25/17 09:00 03/19/17 09:22 (Pill Splitter) 1 ea UNSCH PRN OTHER 03/01/17 23:45 (NS Flush) 2 ml UNSCH PRN IVF 03/05/17 18:00 (NS Flush) 2 ml BID IVF 03/05/17 21:00 03/19/17 09:22 (Lopressor) 25 mg Q8H PO 03/06/17 18:00 03/19/17 09:23 (Lovenox Inj) 50 mg Q12H SQ 03/14/17 18:00 03/19/17 05:17 (PHENobarbital LIQ) 60 mg Q12HR PEG 03/16/17 21:00 03/19/17 09:23 (Dilantin Liq) 150 mg Q8HR PEG 03/16/17 22:00 03/19/17 14:15 (Zofran Odt) 4 mg Q6H PRN PO 03/16/17 21:00 ([place]) Medical Decision Making MDM Remarks 22 y/o female with a history of TBI POD # 14 s/p craniotomy for bone flap replacement Neurological function appears stable Upper extremity venous thrombosis ([place]) Plan Plan Remarks Continue neuro checks Continue anticonvulsants per Neurology Continue heparin drip for upper extremity DVT Continue mechanical DVT prophylaxis Primary management & HR mgmt per Trauma [facility] following patient and may accept. Family also considering OR as well since parents live there and she will be going home with them after rehab. ([place]) Attending Statement I have personally seen and examined the patient on the date of this note. Pertinent documentation and study results have been reviewed by the undersigned. I have personally developed the treatment plan and performed medical decision making. Agree with findings, exam, and treatment plan as noted above. Scalp incision healing well Neurologic exam remained stable Case management for discharge planning (Victor Hugo Gibson MD) [place] Mar 19, 2017 15:48 Victor Hugo Gibson MD Mar 20, 2017 20:43
--- NOTE | 2017-03-19 18:03 | HHI.PR ---
Subjective Remarks Awake and moves right arm , and responds to commands. On a T bar at 28 %. Off Antibiotics ,No fever . No seizures noted. Objective Vital Signs Date Time Temp Pulse Resp B/P Pulse Ox O2 Delivery O2 Flow Rate FiO2 03/19/17 16:24 119 03/19/17 12:00 98.1 120 21 163/69 96 03/19/17 08:29 100 T-piece 6.00 28 03/19/17 08:27 100 T-piece 6.00 28 03/19/17 08:00 98.5 120 21 146/65 94 03/19/17 04:47 99 T-piece 28 03/19/17 04:00 95.8 109 20 145/90 100 03/19/17 00:00 97.9 106 20 153/92 100 03/18/17 21:07 99 T-piece 28 03/18/17 21:00 99 Trach Collar 03/18/17 20:00 96.9 112 20 122/71 100 I/O 03/18/17 03/18/17 03/18/17 03/19/17 03/19/17 03/19/17 07:00 15:00 23:00 07:00 15:00 23:00 Intake Total 850 ml Output Total 1000 ml 800 ml 700 ml 475 ml 550 ml Balance -1000 ml -800 ml -700 ml 375 ml -550 ml Tube Feeding 600 ml Other 250 ml Output Urine Total 1000 ml 800 ml 700 ml 475 ml 550 ml # Voids 3 # Bowel Movements 2 Result Diagram: 03/16/17 1027 03/16/17 1027 Procedures Replacement craniotomy bone flap 03/06/17 Side: Left Objective Remarks PHYSICAL EXAMINATION GENERAL: Averagely built young white female with no acute distress. She was lying flat. She has trach tube in place with a T-bar. HEENT: Head normocephalic. Some eyelid twitches. NECK: Supple. No bruits, no venous distension. Trach site OK. CHEST: Equal movements with clear lung lawson. CARDIAC: Heart sounds are regular. No murmur. ABDOMEN: Soft and nontender.PEG +. Bowel sounds are active. EXTREMITIES: Weakness of the lower limbs and left side . Contractures of limbs. She is somewhat lethargic, but responds. SKIN: Dry and cool. Assessment and Plan Assessment and Plan IMPRESSION 1. Respiratory failure with a history of MRSA pneumonia 2. Status post craniotomy for a subdural hematoma and traumatic brain injury 3. Right rib fractures with history of pneumothorax, resolved 4. Tachycardia, resolved. Plan : 1. T bar at 25 %, and wean to keep sat >92. 2. Suction and lavage trach q3h. 3. Nebs qid , albuterol prn. 4. Levsin .125 mg tid prn for secretions. 5. Chest X ray in am 6. Tube feeds as ordered. 7. PT and OT. Michela Mohr MD Mar 19, 2017 18:03
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
[2017-03-19] MEDS: FAMOTIDINE 20 MG TAB PO SCH (21:57)
[2017-03-20] VITALS (12 sets, daily range): BP systolic 118–171; BP diastolic 60–97; PULSE 113–126; RESP 18–20; TEMP 96.6–98.9; O2SAT 95–100
[2017-03-20] MEDS: RESP: ALBUTEROL 2.5 MG/IPRATROPIUM 0.5 MG NEB (SCH) NEB ×6 (00:16→19:56)
[2017-03-20] MEDS: METOPROLOL TARTRATE 25 MG TAB PO SCH ×3 (02:00→17:18)
[2017-03-20] MEDS: PHENYTOIN SUSP 100 MG/4 ML CUP PEG SCH ×3 (06:00→21:56)
[2017-03-20] MEDS: ARTIFICIAL TEARS OPTH SOLN 15 ML BTL EACH EYE SCH ×4 (06:00→23:00)
[2017-03-20] MEDS: ENOXAPARIN SODIUM 60 MG/0.6 ML SYRINGE SQ SCH ×2 (06:00→17:18)
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
[2017-03-20] MEDS: BISACODYL 10 MG SUPP RECTAL SCH (09:00)
[2017-03-20] MEDS: SODIUM CHLORIDE 0.9% FLUSH 5 ML FLUSH IVF SCH ×2 (09:00→21:00)
[2017-03-20] MEDS: LANSOPRAZOLE SOLUTAB 30 MG TAB NG SCH (09:01)
[2017-03-20] MEDS: BROMOCRIPTINE MESYLATE 2.5 MG TAB PO SCH ×2 (09:02→21:56)
[2017-03-20] MEDS: DOCUSATE SODIUM 50 MG/SENNA 8.6 MG TAB PO SCH ×2 (09:02→21:56)
[2017-03-20] MEDS: PHENobarbital ELIX 20 MG/5 ML CUP PEG SCH ×2 (09:03→21:57)
[2017-03-20] MEDS: LACOSAMIDE 50 MG TAB G-TUBE SCH ×2 (09:03→21:56)
--- NOTE | 2017-03-20 11:11 | MG ---
cc: MUNIR RODRIGEZ M.D. Lab No: [id number] Date: 03/20/2017 Age: Sex: F Race: TECHNIQUE 17 channel EEG. DESCRIPTION The background rhythm reveals a symmetrical alpha rhythm frequency is about 8 Hz, amplitude is about 20 microvolts. There is some slowing in the theta range probably related to drowsiness. There appears to be more slowing over the left hemisphere than over the right, at times there is delta slowing over the left hemisphere. On couple of instances there was some sharp activity over the left hemisphere with phase reversal, later in the tracing there is further slowing diffusely in the delta frequency with sleep spindles suggesting sleep activity. Photic results in a symmetric driving response. INTERPRETATION Abnormal study. There is asymmetry with focal slowing over the left hemisphere with sharp activity, recommend correlation with an imaging study to rule out structural abnormality. May be possible epileptogenic focus as well on that hemisphere given the occasional sharp activity identified. MD TABBY Howe/winston /11:04 AM /11:09 AM
--- NOTE | 2017-03-20 11:36 | HHI.PR ---
Subjective Remarks patient tolerating intermittent trach capping secretions minimal- whitish Objective Vitals Vital Signs Date Time Temp Pulse Resp B/P Pulse Ox O2 Delivery O2 Flow Rate FiO2 03/20/17 08:30 100 T-piece 28 03/20/17 08:27 100 T-piece 28 03/20/17 08:05 115 03/20/17 08:00 97.1 121 18 171/97 99 03/20/17 06:24 98.6 119 19 126/89 95 03/20/17 04:50 100 T-piece 03/20/17 00:53 98.5 114 19 132/92 98 03/19/17 21:45 96 Room Air 03/19/17 20:38 99.5 126 19 131/66 100 03/19/17 19:30 99 T-piece 03/19/17 19:30 99 T-piece 03/19/17 16:24 119 03/19/17 16:00 97.5 116 20 97/55 97 03/19/17 12:00 98.1 120 21 163/69 96 I/O 03/19/17 03/19/17 03/19/17 03/20/17 03/20/17 03/20/17 07:00 15:00 23:00 07:00 15:00 23:00 Intake Total 850 ml 600 ml Output Total 475 ml 550 ml 650 ml Balance 375 ml -550 ml -50 ml Tube Feeding 600 ml 480 ml Other 250 ml 120 ml Output Urine Total 475 ml 550 ml 650 ml # Voids 3 Result Diagram: 03/16/17 1027 03/16/17 1027 Imaging Last Impressions Chest X-Ray 03/20/17 0600 Signed Impressions: Service Date/Time: Monday, March 20, 2017 06:19 - CONCLUSION: Underinflated examination. No acute cardiopulmonary abnormality is identified. Paul Warren MD Head CT 03/14/17 0000 Signed Impressions: Service Date/Time: Tuesday, March 14, 2017 14:18 - CONCLUSION: 1. Stable CT examination with a subdural collection over the left frontal lobe causing effacement of the sulci on the left side. Significant midline shift is not seen. The basal cisterns are open. 2. Old areas of infarction at the right thalamus, right occipital lobe and medial right temporal lobe. Paul Rudd MD Upper Extremity Ultrasound 03/13/17 0000 Signed Impressions: Service Date/Time: Monday, March 13, 2017 21:49 - CONCLUSION: Acute occlusive thrombus involving the basilic and brachial veins. Jesse Waite Jr., MD Brain MRI 03/06/17 0000 Signed Impressions: Service Date/Time: Monday, March 06, 2017 20:35 - CONCLUSION: Fluid accumulation over the left frontal convexity not well seen or appreciated on CT examination. Mild associated mass effect. Paul Bob MD Objective Remarks incisions- head- dry tuned to call of her name with 's voice anicteric tracheostomy in place lungs no rales or wheezes regular rhythm abdomen- PEG in place extremities - UE- atrophied LE- atrophied Procedures Replacement craniotomy bone flap 03/06/17 Side: Left A/P Problem List: (1) Breakthrough seizure ICD Code: G40.919 Status: Chronic (2) Seizure disorder ICD Code: G40.909 Status: Acute (3) Major neurocognitive disorder as late effect of traumatic brain injury without behavioral disturbance ICD Code: S06.9X9S Status: Acute (4) Closed head injury ICD Code: S09.90XA Status: Acute (5) Subdural hematoma ICD Code: I62.00 Status: Acute (6) Pelvic fracture ICD Code: S32.9XXA Status: Acute (7) Kidney contusion ICD Code: S37.019A Status: Acute (8) Liver laceration ICD Code: S36.113A Status: Acute (9) Trauma ICD Code: T14.90 Status: Acute (10) Sinus tachycardia ICD Code: R00.0 Status: Acute (11) 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 Management per neurosurgery Will need longterm care Unlikely to be functional again On Phenytoin and Phenobarbital - levels therapeutic- 03/19 Seizure, breakthrough: Continue Vimpat 50mg BID and Dilantin 150mg Q8H as well as Phenobarbital 65mg BID Neurology ff - Dr. Osiris castellanos. repeat EEG ordered for today 03/20 Low-grade fever, recurrent: resolved Follow for recurrence- T down PRN Tylenol Chronic respiratory failure tracheostomy in place Follow oxygen saturations Pulmonary toilet Pulmonology following Levsin for secretions Follow cultures 03/19 d/w RT- trial of trach capping- LUE/RUE DVT: Lovenox 50mg SQ BID for now Coumadin may be needed longterm Treatment planned for 3 months right now Multiple pelvic fractures. Transverse process lumbar fractures Continue physical therapy Continue occupational therapy Continue speech therapy Sinus tachycardia: Continue metoprolol 25 mg TID. Continue monitor heart rate. Low blood pressure: Resolved Midodrine if needed, for recurrence Resolved MRSA pneumonia: completed vancomycin on 02/18. . GI prophylaxis protection with Prevacid. continue tube feedings at 60 cc/hr DVT prevention Lovenox Have a very supportive at bedside Problem Qualifiers (1) Deep venous thrombosis of upper extremity: Qualified Code: I82.623 - Acute deep vein thrombosis (DVT) of both upper extremities, unspecified vein Aidan Tim MD Mar 20, 2017 11:35
--- NOTE | 2017-03-20 11:38 | HHI.NSPN ---
([place]) Note Status Status: Progress Note ([place]) Interval History Interval History Ms. Laurent is a 22 y/o female with a history of TBI 03/05: To OR for: Replacement left craniotomy bone flap Left frontotemporoparietal duraplasty 03/06: POD # 1 replacement craniotomy bone flap 03/07: today mildly opening eyes, however not following commands 03/08: f/u CT Head completed, more awake today 03/09: Patient opens eyes spontaneously but not tracking 03/10: Patient opens eyes to noxious stimuli, Nursing reports she is more responsive to than staff 03/11: Patient transferred to regular med/surg floor 03/12: Eyes open, smiles, still tachycardiac 03/13: Patient drowsy today, minimally follows commands. 03/14/17: Heparin IV started for DVT. CT Head satisfactory 03/16: Patient awake, OT at bedside doing LUE exercises 03/17: Patient sleeping, not responding to verbal stimuli, no apparent distress. Samantha to craniotomy incision removed yesterday. 03/18: Patient awake, follows some commands. 03/19: Patient asleep but awakens to verbal stimuli, follows commands but not consistently. 03/20: Patient awakes, smiles when asked to, follows commands but not consistently, NAD. states she was tachycardiac in the 140s earlier and was given Roxicodone. ([place]) Labs, Micro, & Vital Signs Results Allergies Coded Allergies Type Severity Reaction Last Updated Verified No Known Allergies 12/15/16 No Recent Impressions Chest X-Ray 03/20/17 0600 Signed Impressions: Service Date/Time: Monday, March 20, 2017 06:19 - CONCLUSION: Underinflated examination. No acute cardiopulmonary abnormality is identified. Paul Warren MD 03/18////// 06:00 18:00 06:00 18:00 06:00 18:00 Intake Total 850 ml 600 ml Output Total 1800 ml 1175 ml 550 ml 400 ml 250 ml Balance -1800 ml -325 ml -550 ml 200 ml -250 ml Tube Feeding 600 ml 480 ml Other 250 ml 120 ml Output Urine Total 1800 ml 1175 ml 550 ml 400 ml 250 ml # Voids 3 # Bowel Movements 2 Laboratory Tests Test 03/18/17 03/19/17 21:35 06:55 Phenytoin (Dilantin) Level 13.5 MCG/ML 12.1 MCG/ML Phenobarbital Level 18.7 MCG/ML Constitutional Vital Signs Date Time Temp Pulse Resp B/P Pulse Ox O2 Delivery O2 Flow Rate FiO2 03/20/17 08:30 100 T-piece 28 03/20/17 08:27 100 T-piece 28 03/20/17 08:05 115 03/20/17 08:00 97.1 121 18 171/97 99 03/20/17 06:24 98.6 119 19 126/89 95 03/20/17 04:50 100 T-piece 28 03/20/17 00:53 98.5 114 19 132/92 98 03/19/17 21:45 96 Room Air 03/19/17 20:38 99.5 126 19 131/66 100 03/19/17 19:30 99 T-piece 28 03/19/17 19:30 99 T-piece 28 03/19/17 16:24 119 03/19/17 16:00 97.5 116 20 97/55 97 03/19/17 12:00 98.1 120 21 163/69 96 03/20/17 07:00 Intake Total 600 ml Output Total 1200 ml Balance -600 ml ([place]) Review of Systems/Exam ROS Unable to obtain ROS due to patient's mental status. Exam HEENT: Surgical incision well approximated w/o any evident drainage, erythema or streaking. PERRRL. Resp: CTAB w/o W/R/R, equal excursion, non-laboured, trached, on trach collar. CV: RRR w/o M/G/R but fast, cap refill < 2 sec, radial & pedal pulses 2+ bilaterally, no pedal edema. GI: Abdomen soft & nontender, bowel sounds present. Enteral feeds by PEG. Neuro: Awake & alert, smiles to command, spontaneous movement of RUE and right foot, did move both feet & slight squeeze to right hand on command, pulled practitioner's hand toward face and then back down, functional splint is on LUE. ([place]) Medications Current Medications Current Medications Medications (Trade) Dose Ordered Sig/Raji Route Start Time Stop Time Status Last Admin (Tylenol) 650 mg Q4H PRN PO 02/17/17 00:30 03/15/17 15:22 (Milk Of Magnesia Liq) 30 ml Q12H PRN PO 02/17/17 00:30 (Narcan Inj) 0.4 mg UNSCH PRN IV 02/17/17 00:30 Miscellaneous Information Patient in critical care unit? Ass... Q361D XX 02/17/17 04:15 02/17/17 04:15 (Dulcolax Supp) 10 mg DAILY RECTAL 02/18/17 09:00 03/12/17 09:39 (Parlodel) 2.5 mg Q12HR PO 02/17/17 21:00 03/20/17 09:02 (Pepcid) 20 mg HS PO 02/17/17 21:00 03/19/17 21:57 (Levsin) 0.125 mg Q4H PRN PO 02/17/17 11:15 (Motrin Liq) 200 mg Q6H PRN PO 02/17/17 11:15 03/11/17 13:35 (Malu-Colace) 1 tab BID PO 02/17/17 21:00 03/20/17 09:02 (Lactulose Liq) 30 ml DAILY PRN PO 02/19/17 07:30 (Prevacid Odt) 30 mg DAILY NG 02/19/17 09:00 03/20/17 09:01 (Roxicodone) 5 mg Q4H PRN PEG 02/19/17 08:00 03/20/17 09:02 (Tears Naturale Opth Soln) 1 drop Q6HR EACH EYE 02/22/17 19:00 03/20/17 10:46 (Vimpat) 50 mg BID G-TUBE 02/25/17 09:00 03/20/17 09:03 (Pill Splitter) 1 ea UNSCH PRN OTHER 03/01/17 23:45 (NS Flush) 2 ml UNSCH PRN IVF 03/05/17 18:00 (NS Flush) 2 ml BID IVF 03/05/17 21:00 03/20/17 09:00 (Lopressor) 25 mg Q8H PO 03/06/17 18:00 03/20/17 09:02 (Lovenox Inj) 50 mg Q12H SQ 03/14/17 18:00 03/20/17 06:00 (PHENobarbital LIQ) 60 mg Q12HR PEG 03/16/17 21:00 03/20/17 09:03 (Dilantin Liq) 150 mg Q8HR PEG 03/16/17 22:00 03/20/17 06:00 (Zofran Odt) 4 mg Q6H PRN PO 03/16/17 21:00 ([place]) Medical Decision Making MDM Remarks 22 y/o female with a history of TBI POD # 15 s/p craniotomy for bone flap replacement Neurological function appears stable Upper extremity venous thrombosis ([place]) Plan Plan Remarks Continue neuro checks Continue anticonvulsants per Neurology Continue heparin drip for upper extremity DVT Continue mechanical DVT prophylaxis Primary management & HR mgmt per [facility] following patient and may accept. Family also considering OR as well since parents live there and she will be going home with them after rehab. ([place]) Attending Statement I have personally seen and examined the patient on the date of this note. Pertinent documentation and study results have been reviewed by the undersigned. I have personally developed the treatment plan and performed medical decision making. Agree with findings, exam, and treatment plan as noted above. No change in neurologic exam Wound healing well Case management for discharge planning (Victor Hugo Gibson MD) [place] Mar 20, 2017 11:38 Victor Hugo Gibson MD Mar 20, 2017 20:44
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
--- NOTE | 2017-03-20 18:33 | HHI.PR ---
Subjective Remarks Awake and responds to commands. On a T bar at 28 %. CXR is clear ,No fever . No seizures noted. Objective Vital Signs Date Time Temp Pulse Resp B/P Pulse Ox O2 Delivery O2 Flow Rate FiO2 03/20/17 17:33 97.1 125 19 132/60 99 03/20/17 16:07 100 Nasal Cannula 3.00 03/20/17 12:00 96.6 113 18 131/73 99 03/20/17 08:30 100 T-piece 03/20/17 08:30 99 T-Piece 28 03/20/17 08:27 100 T-piece 28 03/20/17 08:05 115 03/20/17 08:00 97.1 121 18 171/97 99 03/20/17 06:24 98.6 119 19 126/89 95 03/20/17 04:50 100 T-piece 03/20/17 00:53 98.5 114 19 132/92 98 03/19/17 21:45 96 Room Air 03/19/17 20:38 99.5 126 19 131/66 100 03/19/17 19:30 99 T-piece 28 03/19/17 19:30 99 T-piece 28 I/O 03/19/17 03/19/17 03/19/17 03/20/17 03/20/17 03/20/17 07:00 15:00 23:00 07:00 15:00 23:00 Intake Total 850 ml 600 ml Output Total 475 ml 550 ml 650 ml 450 ml Balance 375 ml -550 ml -50 ml -450 ml Tube Feeding 600 ml 480 ml Other 250 ml 120 ml Output Urine Total 475 ml 550 ml 650 ml 450 ml # Voids 3 Result Diagram: 03/16/17 1027 03/16/17 1027 Procedures Replacement craniotomy bone flap 03/06/17 Side: Left Objective Remarks PHYSICAL EXAMINATION GENERAL: Averagely built young white female with no acute distress. She was lying flat. She has trach tube in place with a T-bar. HEENT: Head normocephalic. eyes clear. NECK: Supple. No bruits, no venous distension. Trach site OK. CHEST: Equal movements with clear lung lawson. CARDIAC: Heart sounds are regular. No murmur. ABDOMEN: Soft and nontender.PEG +. Bowel sounds are active. EXTREMITIES: Weakness of the lower limbs and left side . Contractures of limbs. She is awake and moves arm to command SKIN: Dry and cool. Assessment and Plan Assessment and Plan IMPRESSION 1. Respiratory failure with a history of MRSA pneumonia 2. Status post craniotomy for a subdural hematoma and traumatic brain injury 3. Right rib fractures with history of pneumothorax, resolved 4. Tachycardia Plan : 1. T bar at 28 %. 2. Suction and lavage trach q3h. 3. Nebs qid , albuterol prn. 4. Levsin .125 mg tid prn for secretions. 5. PT evaluation 6. Tube feeds as ordered. Michela Mohr MD Mar 20, 2017 18:33
[2017-03-20] MEDS: FAMOTIDINE 20 MG TAB PO SCH (21:56)
[2017-03-20] MEDS: IBUPROFEN SUSP 100 MG/5 ML UDC PO PRN (21:57)
[2017-03-21] VITALS (12 sets, daily range): BP systolic 110–142; BP diastolic 68–84; PULSE 98–121; RESP 18–22; TEMP 97.5–98.9; O2SAT 97–100
[2017-03-21] MEDS: RESP: ALBUTEROL 2.5 MG/IPRATROPIUM 0.5 MG NEB (SCH) NEB ×6 (00:37→20:37)
[2017-03-21] MEDS: METOPROLOL TARTRATE 25 MG TAB PO SCH ×3 (02:00→17:16)
[2017-03-21] MEDS: ARTIFICIAL TEARS OPTH SOLN 15 ML BTL EACH EYE SCH ×3 (05:59→17:19)
[2017-03-21] MEDS: PHENYTOIN SUSP 100 MG/4 ML CUP PEG SCH ×3 (06:00→22:34)
[2017-03-21] MEDS: ENOXAPARIN SODIUM 60 MG/0.6 ML SYRINGE SQ SCH ×2 (06:00→17:19)
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
[2017-03-21] MEDS: BISACODYL 10 MG SUPP RECTAL SCH (09:00)
[2017-03-21] MEDS: SODIUM CHLORIDE 0.9% FLUSH 5 ML FLUSH IVF SCH ×2 (09:00→21:00)
[2017-03-21] MEDS: LANSOPRAZOLE SOLUTAB 30 MG TAB NG SCH (10:04)
[2017-03-21] MEDS: DOCUSATE SODIUM 50 MG/SENNA 8.6 MG TAB PO SCH ×2 (10:05→21:00)
[2017-03-21] MEDS: BROMOCRIPTINE MESYLATE 2.5 MG TAB PO SCH ×2 (10:05→21:40)
[2017-03-21] MEDS: LACOSAMIDE 50 MG TAB G-TUBE SCH ×2 (10:05→21:33)
[2017-03-21] MEDS: PHENobarbital ELIX 20 MG/5 ML CUP PEG SCH ×2 (10:05→21:30)
[2017-03-21] MEDS: IBUPROFEN SUSP 100 MG/5 ML UDC PO PRN (10:05)
[2017-03-21] MEDS: FAMOTIDINE 20 MG TAB PO SCH (21:33)
[2017-03-22] VITALS (11 sets, daily range): BP systolic 102–144; BP diastolic 56–79; PULSE 92–122; RESP 20–22; TEMP 97.9–99.8; O2SAT 92–100
[2017-03-22] MEDS: ARTIFICIAL TEARS OPTH SOLN 15 ML BTL EACH EYE SCH ×5 (01:47→23:47)
[2017-03-22] MEDS: METOPROLOL TARTRATE 25 MG TAB PO SCH ×3 (01:50→17:31)
[2017-03-22] MEDS: RESP: ALBUTEROL 2.5 MG/IPRATROPIUM 0.5 MG NEB (SCH) NEB ×6 (03:51→19:36)
[2017-03-22] MEDS: ENOXAPARIN SODIUM 60 MG/0.6 ML SYRINGE SQ SCH ×2 (05:35→17:31)
[2017-03-22] MEDS: PHENYTOIN SUSP 100 MG/4 ML CUP PEG SCH ×3 (05:36→22:19)
[2017-03-22] MEDS: IBUPROFEN SUSP 100 MG/5 ML UDC PO PRN (05:36)
[2017-03-22] MEDS: BISACODYL 10 MG SUPP RECTAL SCH (08:04)
[2017-03-22] MEDS: SODIUM CHLORIDE 0.9% FLUSH 5 ML FLUSH IVF SCH ×2 (09:00→21:00)
[2017-03-22] MEDS: BROMOCRIPTINE MESYLATE 2.5 MG TAB PO SCH ×2 (09:42→22:23)
[2017-03-22] MEDS: PHENobarbital ELIX 20 MG/5 ML CUP PEG SCH ×2 (09:42→22:17)
[2017-03-22] MEDS: DOCUSATE SODIUM 50 MG/SENNA 8.6 MG TAB PO SCH ×2 (09:42→22:19)
[2017-03-22] MEDS: LANSOPRAZOLE SOLUTAB 30 MG TAB NG SCH (09:42)
[2017-03-22] MEDS: LACOSAMIDE 50 MG TAB G-TUBE SCH ×2 (09:42→22:18)
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
--- NOTE | 2017-03-22 16:14 | HHI.NSPN ---
Note Status Status: Progress Note Interval History Interval History Ms. Laurent is a 22 y/o female with a history of TBI 03/05: To OR for: Replacement left craniotomy bone flap Left frontotemporoparietal duraplasty 03/06: POD # 1 replacement craniotomy bone flap 03/07: today mildly opening eyes, however not following commands 03/08: f/u CT Head completed, more awake today 03/09: Patient opens eyes spontaneously but not tracking 03/10: Patient opens eyes to noxious stimuli, Nursing reports she is more responsive to than staff 03/11: Patient transferred to regular med/surg floor 03/12: Eyes open, smiles, still tachycardiac 03/13: Patient drowsy today, minimally follows commands. 03/14/17: Heparin IV started for DVT. CT Head satisfactory 03/16: Patient awake, OT at bedside doing LUE exercises 03/17: Patient sleeping, not responding to verbal stimuli, no apparent distress. Samantha to craniotomy incision removed yesterday. 03/18: Patient awake, follows some commands. 03/19: Patient asleep but awakens to verbal stimuli, follows commands but not consistently. 03/20: Patient awakes, follows commands but not consistently, no new issues Labs, Micro, & Vital Signs Results Date Time Temp Pulse Resp B/P Pulse Ox O2 Delivery O2 Flow Rate FiO2 03/22/17 12:00 98 T-Piece 5.00 28 03/22/17 12:00 97.9 120 21 110/56 98 03/22/17 09:05 96 T-piece 28 03/22/17 08:06 108 03/22/17 08:00 98.2 92 20 102/57 98 03/22/17 06:38 19 03/22/17 05:07 98.0 116 20 144/79 92 03/22/17 04:00 T-Piece 03/22/17 03:51 99 T-piece 28 03/22/17 02:30 T-Piece 03/22/17 00:42 100 T-piece 28 03/21/17 23:20 98.9 121 20 133/70 98 03/22/17 07:00 Intake Total 2640 ml Output Total 1200 ml Balance 1440 ml Constitutional Vital Signs Date Time Temp Pulse Resp B/P Pulse Ox O2 Delivery O2 Flow Rate FiO2 03/22/17 12:00 98 T-Piece 5.00 28 03/22/17 12:00 97.9 120 21 110/56 98 03/22/17 09:05 96 T-piece 28 03/22/17 08:06 108 03/22/17 08:00 98.2 92 20 102/57 98 03/22/17 06:38 19 03/22/17 05:07 98.0 116 20 144/79 92 03/22/17 04:00 T-Piece 03/22/17 03:51 99 T-piece 28 03/22/17 02:30 T-Piece 03/22/17 00:42 100 T-piece 28 03/21/17 23:20 98.9 121 20 133/70 98 03/22/17 07:00 Intake Total 2640 ml Output Total 1200 ml Balance 1440 ml Review of Systems/Exam Exam HEENT: Surgical incision well approximated w/o any evident drainage, erythema or streaking. PERRRL. Resp: CTAB w/o W/R/R, equal excursion, non-laboured, trached, on trach collar. CV: RRR w/o M/G/R but fast, cap refill < 2 sec, radial & pedal pulses 2+ bilaterally, no pedal edema. GI: Abdomen soft & nontender, bowel sounds present. Enteral feeds by PEG. Neuro: Awake & alert, smiles to command, spontaneous movement of RUE and right foot, did move both feet & slight squeeze to right hand on command, pulled practitioner's hand toward face and then back down, functional splint is on LUE. Medications Current Medications Current Medications Sodium Chloride (NS Flush) 2 ml UNSCH PRN IV FLUSH FLUSH AFTER USING IV ACCESS ; Start 02/17/17 at 00:30; Stop 03/05/17 at 18:35; Status DC Sodium Chloride (NS Flush) 2 ml BID IV FLUSH Last administered on 03/05/17t 08: 32; Start 02/17/17 at 09:00; Stop 03/05/17 at 18:35; Status DC Acetaminophen (Tylenol) 650 mg Q4H PRN PO TEMP > 100.4 Last administered on 15:22; Start 02/17/17 at 00:30 Ondansetron HCl (Zofran Inj) 4 mg Q6H PRN IVP NAUSEA OR VOMITING; Start at 00:30; Stop 03/16/17 at 20:08; Status DC Bisacodyl (Dulcolax Supp) 10 mg DAILY PRN GA SEE LABEL COMMENTS; Start at 00:30; Stop 02/17/17 at 11:25; Status DC Magnesium Hydroxide (Milk Of Magnesia Liq) 30 ml Q12H PRN PO CONSTIPATION; Start 02/17/17 at 00:30 Naloxone HCl (Narcan Inj) 0.4 mg UNSCH PRN IV SEE LABEL COMMENTS; Start at 00:30 Miscellaneous Information Patient in critical care unit? Ass... Q361D XX Last administered on 02/17/17 04:15; Start 02/17/17 at 04:15 Chlorhexidine Gluconate (Chlorhexidine 2% Cloth) 3 pack DAILY@04 TOPICAL Last administered on 02/22/17 04:00; Start 02/18/17 at 04:00; Stop 02/22/17 at 04:01; Status DC Chlorhexidine Gluconate (Chlorhexidine 2% Cloth) 3 pack UNSCH PRN TOPICAL HYGIENIC CARE; Start 02/17/17 at 04:15; Stop 02/22/17 at 04:04; Status DC Albuterol/ Ipratropium (Duoneb Neb) 1 ampule Q4HR NEB PRN NEB SHORTNESS OF BREATH Last administered on 03/09/17 10:27; Start 02/17/17 at 08:30; Stop 03/11 at 18:06; Status DC Bisacodyl (Dulcolax Supp) 10 mg DAILY RECTAL Last administered on 03/12/17 09: 39; Start 02/18/17 at 09:00 Bromocriptine Mesylate (Parlodel) 2.5 mg Q12HR PO Last administered on 09:42; Start 02/17/17 at 21:00 Famotidine (Pepcid) 20 mg HS PO Last administered on 03/21/17 21:33; Start at 21:00 Hyoscyamine Sulfate (Levsin) 0.125 mg Q4H PRN PO secretions; Start 02/17/17 at 11:15 Ibuprofen (Motrin Liq) 200 mg Q6H PRN PO temp>101 Last administered on 05:36; Start 02/17/17 at 11:15 Lactulose (Lactulose Liq) 30 ml DAILY PO Last administered on 02/18/17 09:05; Start 02/18/17 at 09:00; Stop 02/19/17 at 07:23; Status DC Levetriacetam (Keppra) 500 mg BID PO Last administered on 02/25/17 21:19; Start 02/17/17 at 11:30; Stop 02/26/17 at 08:46; Status DC Midodrine (Proamatine) 10 mg TID PO Last administered on 02/25/17 19:00; Start 02/17/17 at 13:00; Stop 02/26/17 at 10:10; Status DC Oxycodone HCl (Roxicodone Intensol Liq) 5 mg Q4H PRN PO pain 4-6; Start at 11:15; Stop 02/19/17 at 07:46; Status DC Pantoprazole Sodium (Protonix Inj) 40 mg Q24H IV PUSH Last administered on 02/18 12:11; Start 02/17/17 at 12:00; Stop 02/19/17 at 07:23; Status DC Phenobarbital Sodium (Luminal Inj) 65 mg BID IV Last administered on 03/16/17 09:20; Start 02/17/17 at 12:00; Stop 03/16/17 at 20:02; Status DC Propranolol HCl (Inderal) 10 mg Q8HR PO Last administered on 02/17/17 15:58; Start 02/17/17 at 14:00; Stop 02/17/17 at 20:20; Status DC Senna/Docusate Sodium 1 tab 1 tab BID PO Last administered on 03/22/17 09:42; Start 02/17/17 at 21:00 Vancomycin HCl 1500 mg/Sodium Chloride 515 ml @ 257.5 mls/ hr Q12H IV ; Start 02/17/17 at 11:30; Status UNV Pharmacy Profile Note 0 ml @ 0 mls/hr UNSCH OTHER ; Start 02/17/17 at 11:30; Stop 02/19/17 at 23:59; Status DC Vancomycin HCl/ Sodium Chloride (Vancomycin Inj/ NS 250 ml Inj) 257.5 ml @ 250 mls/hr Q8H IV Last administered on 02/19/17 21:37; Start 02/17/17 at 13:00; Stop 02/19/17 at 23:59; Status DC Miscellaneous Information SPECIFIC LAB TO BE DRAWN:VANCO TROUGH DATE TO BE DR... ONCE ONCE XX Last administered on 02/18/17 12:11; Start 02/18/17 at 12: 45; Stop 02/18/17 at 12:46; Status DC Sodium Chloride (NS 1000 ml Inj) 1,000 ml @ 84 mls/hr [id number] IV Last administered on 02/19/17 00:01; Start 02/17/17 at 13:00; Stop 02/19/17 at 07:13 ; Status DC Enoxaparin Sodium (Lovenox Inj) 40 mg Q24H SQ Last administered on 03/13/17 22 :00; Start 02/17/17 at 20:00; Stop 03/14/17 at 16:38; Status DC Propranolol HCl (Inderal) 20 mg Q8HR PO Last administered on 02/19/17 14:00; Start 02/17/17 at 22:00; Stop 02/19/17 at 16:28; Status DC Lactulose (Lactulose Liq) 30 ml DAILY PRN PO if no bm by 1200; Start 02/19/17 at 07:30 Lansoprazole (Prevacid Odt) 30 mg DAILY NG Last administered on 03/22/17 09:42 ; Start 02/19/17 at 09:00 Oxycodone HCl (Roxicodone) 5 mg Q4H PRN PEG PAIN 4-6 Last administered on 09:02; Start 02/19/17 at 08:00 Propranolol HCl 20 mg 20 mg Q8HR PO Last administered on 02/26/17 05:47; Start 02/19/17 at 22:00; Stop 02/26/17 at 10:11; Status DC Ceftriaxone Sodium/Sodium Chloride (Rocephin Inj/NS Inj) 100 ml @ 200 mls/hr Q12H IV Last administered on 02/26/17 02:27; Start 02/22/17 at 14:00; Stop at 10:14; Status DC Artificial Tears (Tears Naturale Opth Soln) 1 drop Q6HR EACH EYE Last administered on 03/22/17 09:45; Start 02/22/17 at 19:00 Lacosamide 50 mg 50 mg BID G-TUBE Last administered on 03/22/17 09:42; Start 02/25/17 at 09:00 Levetriacetam (Keppra 1000 Mg Inj) 100 ml @ 100 mls/hr NOW ONCE IV Last administered on 02/26/17 09:00; Start 02/26/17 at 09:00; Stop 02/26/17 at 09:59; Status DC Levetriacetam (Keppra) 250 mg BID PO Last administered on 03/02/17 09:48; Start 02/26/17 at 09:00; Stop 03/02/17 at 21:42; Status DC Levetriacetam (Keppra) 500 mg BID PO Last administered on 03/02/17 09:48; Start 02/26/17 at 09:00; Stop 03/02/17 at 21:42; Status DC Midodrine (Proamatine) 5 mg TID PO Last administered on 02/27/17 13:04; Start 02/26/17 at 13:00; Stop 02/27/17 at 19:21; Status DC Propranolol HCl (Inderal) 10 mg Q8HR PO Last administered on 03/01/17 21:15; Start 02/26/17 at 14:00; Stop 03/01/17 at 23:31; Status DC Midodrine (Proamatine) 5 mg BID PO Last administered on 03/02/17 20:37; Start 02/27/17 at 21:00; Stop 03/02/17 at 21:50; Status DC Metoprolol Tartrate (Lopressor) 12.5 mg Q12HR PO Last administered on 08:30; Start 03/02/17 at 09:00; Stop 03/03/17 at 14:02; Status DC Sodium Chloride ([place]) 1 spray Q4H PRN NASAL NASAL CONGESTION; Start 03/01/17 at 23:45; Status Cancel Miscellaneous (Pill Splitter) 1 ea UNSCH PRN OTHER SEE LABEL COMMENTS; Start at 23:45 Levetriacetam (Keppra Liq) 750 mg BID PEG Last administered on 03/03/17 10:12 ; Start 03/02/17 at 21:45; Stop 03/03/17 at 16:18; Status DC Metoprolol Tartrate (Lopressor) 25 mg Q12HR PO Last administered on 03/06/17 10:10; Start 03/03/17 at 21:00; Stop 03/06/17 at 13:08; Status DC Metoprolol Tartrate (Lopressor) 12.5 mg ONCE ONCE PO Last administered on 03/03 15:25; Start 03/03/17 at 14:30; Stop 03/03/17 at 14:31; Status DC Levetriacetam 1000 mg 1,000 mg Q12HR NG Last administered on 03/07/17 09:22; Start 03/03/17 at 21:00; Stop 03/07/17 at 13:35; Status DC Levetriacetam (Keppra 1000 Mg Inj) 100 ml @ 400 mls/hr BOLUS ONCE IV Last administered on 03/03/17 16:57; Start 03/03/17 at 17:00; Stop 03/03/17 at 17:14 ; Status DC Thrombin (Thrombin Top Soln) 10,000 units STK-MED ONCE .ROUTE Last administered on 03/05/17 15:15; Start 03/05/17 at 14:04; Stop 03/05/17 at 14:05 ; Status DC Gelatin (Gelfoam 100 Top) 1 foam STK-MED ONCE .ROUTE Last administered on 15:15; Start 03/05/17 at 14:04; Stop 03/05/17 at 14:05; Status DC Gentamicin Sulfate (Gentamicin Inj) 240 mg STK-MED ONCE .ROUTE Last administered on 03/05/17 15:15; Start 03/05/17 at 14:04; Stop 03/05/17 at 14:05 ; Status DC Lidocaine/ Epinephrine (Xylocaine-Epi 1%-1:100,000 Inj) 40 ml STK-MED ONCE .ROUTE Last administered on 03/05/17 15:15; Start 03/05/17 at 14:05; Stop at 14:06; Status DC Vancomycin HCl (Vancomycin Inj) 1,000 mg STK-MED ONCE .ROUTE Last administered on 03/05/17 15:00; Start 03/05/17 at 14:58; Stop 03/05/17 at 14:59; Status DC Cefazolin Sodium (Ancef Inj) 1,000 mg STK-MED ONCE IV Last administered on 03/05 14:56; Start 03/05/17 at 14:56; Stop 03/05/17 at 15:48; Status DC Fentanyl Citrate (fentaNYL INJ) 250 mcg STK-MED ONCE .ROUTE ; Start 03/05/17 at 18:08; Stop 03/05/17 at 18:09; Status DC IV Flush (NS Flush) 2 ml UNSCH PRN IVF FLUSH AFTER USING IV ACCESS; Start 03/05 at 18:00 IV Flush 2 ml 2 ml BID IVF Last administered on 03/22/17 09:00; Start at 21:00 Potassium Chloride/Dextrose/ Sod Cl (D5-1/2 NS + KCl 20 Meq Inj) 1,000 ml @ 100 mls/hr Q10H IV Last administered on 03/16/17 05:43; Start 03/05/17 at 17: 49; Stop 03/16/17 at 16:34; Status DC Morphine Sulfate 8 mg 8 mg STK-MED ONCE .ROUTE Last administered on 03/05/17 20:10; Start 03/05/17 at 20:09; Stop 03/05/17 at 20:10; Status DC Sodium Chloride 1,000 ml @ 30 mls/hr Q24H IV ; Start 03/06/17 at 09:15; Stop at 09:14; Status Cancel Cefazolin Sodium/ Dextrose (Ancef 2 Gm Premix) 50 ml @ 100 mls/hr CAR [employer]ERE[employer] INST[employer]ER IV ; Start 03/06/17 at 09:15; Stop 03/09/17 at 09:14; Status Cancel Sugammadex Sodium (Bridion Inj) 200 mg STK-MED ONCE IV PUSH ; Start 03/06/17 at 12:08; Stop 03/06/17 at 12:09; Status DC Metoprolol Tartrate 25 mg 25 mg Q8H PO Last administered on 03/22/17 01:50; Start 03/06/17 at 18:00 Fosphenytoin Sodium/Sodium Chloride (Cerebyx Inj/NS Inj) 60 ml @ 120 mls/hr NOW ONCE IV Last administered on 03/06/17 18:49; Start 03/06/17 at 18:00; Stop 03/06/17 at 18:29; Status DC Fosphenytoin Sodium (Cerebyx Inj) 150 mgpe Q8HR IV Last administered on 13:54; Start 03/06/17 at 22:00; Stop 03/16/17 at 20:02; Status DC Gadodiamide 9 ml 9 ml STK-MED ONCE IV Last administered on 03/06/17 21:12; Start 03/06/17 at 21:12; Stop 03/06/17 at 21:13; Status DC Fosphenytoin Sodium 1000 mgpe/ Sodium Chloride 70 ml @ 70 mls/hr ONCE ONCE IV Last administered on 03/08/17 11:56; Start 03/08/17 at 11:00; Stop 03/08/17 at 11:59; Status DC Sodium Chloride 250 ml @ 0 mls/hr ONCE ONCE IV Last administered on 03/08/17 14:15; Start 03/08/17 at 14:15; Stop 03/08/17 at 14:20; Status DC Sodium Chloride (NS 250 ml Inj) 250 ml @ 0 mls/hr NOW ONCE IV Last administered on 03/08/17 18:30; Start 03/08/17 at 18:30; Stop 03/08/17 at 18:31 ; Status DC Albuterol/ Ipratropium (Duoneb Neb) 1 ampule Q4HR NEB NEB Last administered on 03/22/17 12:16; Start 03/11/17 at 20:00 Phenytoin Sodium (Dilantin Inj) 250 mg ONCE ONCE IV Last administered on 15:39; Start 03/13/17 at 16:00; Stop 03/13/17 at 16:01; Status DC Enoxaparin Sodium (Lovenox Inj) 24 mg Q12H SQ ; Start 03/14/17 at 16:45; Stop at 16:45; Status DC Enoxaparin Sodium (Lovenox Inj) 50 mg Q12H SQ Last administered on 03/22/17 05 :35; Start 03/14/17 at 18:00 Phenobarbital (PHENobarbital LIQ) 60 mg Q12HR PEG Last administered on 09:42; Start 03/16/17 at 21:00 Phenytoin (Dilantin Liq) 150 mg Q8HR PEG Last administered on 03/22/17 14:10 ; Start 03/16/17 at 22:00 Ondansetron HCl (Zofran Odt) 4 mg Q6H PRN PO NAUSEA; Start 03/16/17 at 21:00 Propofol (Diprivan 200 Mg/20 ml Inj) 200 mg STK-MED ONCE IV ; Start 03/05/17 at 13:21; Stop 03/18/17 at 13:23; Status DC Ephedrine Sulfate (ePHEDrine/NS 25 MG/5 ML SYR) 25 mg STK-MED ONCE IV ; Start at 13:21; Stop 03/18/17 at 13:23; Status DC Neostigmine Methylsulfate (Prostigmin Inj) 3 mg STK-MED ONCE IV ; Start at 13:21; Stop 03/18/17 at 13:23; Status DC Phenylephrine HCl (Neosynephrine/ NS 1000 Mcg/10ml Syr) 1,000 mcg STK-MED ONCE IV ; Start 03/05/17 at 13:21; Stop 03/18/17 at 13:23; Status DC Ondansetron HCl 4 mg 4 mg STK-MED ONCE IV PUSH ; Start 03/05/17 at 13:21; Stop 03/18/17 at 13:23; Status DC Lactated Ringer's (Lr 1000 ml Inj) 1,000 ml @ As Directed STK-MED ONCE IV ; Start 03/05/17 at 13:21; Stop 03/18/17 at 13:23; Status DC Medical Decision Making MDM Remarks 22 y/o female with a history of TBI POD # 15 s/p craniotomy for bone flap replacement Neurological function appears stable Upper extremity venous thrombosis Plan Plan Remarks Continue neuro checks Continue anticonvulsants per Neurology Continue heparin drip for upper extremity DVT Continue mechanical DVT prophylaxis Lai following patient and may accept Family also considering [facility] as well since parents live there and she will be going home with them after rehab. Ozzie Nunez MD Mar 22, 2017 16:14
[2017-03-22] MEDS: FAMOTIDINE 20 MG TAB PO SCH (22:18)
[2017-03-23] VITALS (12 sets, daily range): BP systolic 92–130; BP diastolic 54–88; PULSE 100–125; RESP 16–21; TEMP 97.9–100.2; O2SAT 94–100
[2017-03-23] MEDS: RESP: ALBUTEROL 2.5 MG/IPRATROPIUM 0.5 MG NEB (SCH) NEB ×6 (01:52→20:46)
[2017-03-23] MEDS: METOPROLOL TARTRATE 25 MG TAB PO SCH ×3 (03:22→16:57)
[2017-03-23] MEDS: PHENYTOIN SUSP 100 MG/4 ML CUP PEG SCH ×3 (06:55→22:58)
[2017-03-23] MEDS: ENOXAPARIN SODIUM 60 MG/0.6 ML SYRINGE SQ SCH ×2 (06:55→17:01)
[2017-03-23] MEDS: IBUPROFEN SUSP 100 MG/5 ML UDC PO PRN ×2 (06:57→22:56)
[2017-03-23] MEDS: ARTIFICIAL TEARS OPTH SOLN 15 ML BTL EACH EYE SCH ×3 (06:57→22:58)
[2017-03-23] MEDS: BISACODYL 10 MG SUPP RECTAL SCH (09:00)
[2017-03-23] MEDS: DOCUSATE SODIUM 50 MG/SENNA 8.6 MG TAB PO SCH ×2 (09:00→22:57)
[2017-03-23] MEDS: SODIUM CHLORIDE 0.9% FLUSH 5 ML FLUSH IVF SCH ×2 (09:00→21:00)
[2017-03-23] MEDS: BROMOCRIPTINE MESYLATE 2.5 MG TAB PO SCH ×2 (09:07→22:57)
[2017-03-23] MEDS: LACOSAMIDE 50 MG TAB G-TUBE SCH ×2 (09:08→22:57)
[2017-03-23] MEDS: LANSOPRAZOLE SOLUTAB 30 MG TAB NG SCH (09:08)
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
[2017-03-23] MEDS: PHENobarbital ELIX 20 MG/5 ML CUP PEG SCH ×2 (11:05→22:57)
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
[2017-03-23] MEDS: ACETAMINOPHEN 325 MG TAB PO PRN (16:56)
--- NOTE | 2017-03-23 19:19 | HHI.NSPN ---
([place]) Note Status Status: Progress Note ([place]) Interval History Interval History Ms. Laurent is a 22 y/o female with a history of TBI 03/05: To OR for: Replacement left craniotomy bone flap Left frontotemporoparietal duraplasty 03/06: POD # 1 replacement craniotomy bone flap 03/07: today mildly opening eyes, however not following commands 03/08: f/u CT Head completed, more awake today 03/09: Patient opens eyes spontaneously but not tracking 03/10: Patient opens eyes to noxious stimuli, Nursing reports she is more responsive to than staff 03/11: Patient transferred to regular med/surg floor 03/12: Eyes open, smiles, still tachycardiac 03/13: Patient drowsy today, minimally follows commands. 03/14/17: Heparin IV started for DVT. CT Head satisfactory 03/16: Patient awake, OT at bedside doing LUE exercises 03/17: Patient sleeping, not responding to verbal stimuli, no apparent distress. Samantha to craniotomy incision removed yesterday. 03/18: Patient awake, follows some commands. 03/19: Patient asleep but awakens to verbal stimuli, follows commands but not consistently. 03/20: Patient awakes, smiles when asked to, follows commands but not consistently, NAD. states she was tachycardiac in the 140s earlier and was given Roxicodone. 03/21: Patient awakes, follows commands but not consistently, no new issues 03/23: Patient is awake, follows some commands inconsistently. states she has been "acting funny" today. ([place]) Labs, Micro, & Vital Signs Constitutional Vital Signs Date Time Temp Pulse Resp B/P Pulse Ox O2 Delivery O2 Flow Rate FiO2 03/23/17 16:22 100.2 125 16 119/66 100 03/23/17 12:56 98.4 118 16 114/60 94 03/23/17 12:00 99 Nasal Cannula 2.00 03/23/17 11:46 97 Nasal Cannula 2.00 5/1/17 10:00 113 03/23/17 08:39 98.6 105 16 92/54 96 03/23/17 08:39 100 T-piece 6.00 28 03/23/17 08:39 100 T-piece 6.00 28 03/23/17 05:48 97.9 100 21 120/75 100 03/23/17 04:00 99 T-Piece 28 03/23/17 01:57 100 T-piece 28 03/23/17 01:52 98 T-piece 28 03/23/17 01:28 98.6 117 19 130/68 100 03/23/17 00:29 99 T-Piece 28 03/22/17 23:18 113 03/22/17 20:58 99 T-Piece 28 03/22/17 20:33 99.0 120 21 127/66 100 03/23/17 07:00 Output Total 1225 ml Balance -1225 ml ([place]) Review of Systems/Exam ROS Unable to obtain ROS due to patient's mental status. Exam HEENT: Surgical incision well approximated w/o any evident drainage, erythema or streaking. PERRRL. Resp: Coarse bilaterally but sounds referred from upper airway, equal excursion , non-laboured, trached, on trach collar. CV: RRR w/o M/G/R but fast, cap refill < 2 sec, radial & pedal pulses 2+ bilaterally, no pedal edema. GI: Abdomen soft & nontender, bowel sounds present. Enteral feeds by PEG. Neuro: Awake & alert, smiles to command, spontaneous movement of RLE, did move both feet to command, questionable trace squeeze with left. ([place]) Medications Current Medications Current Medications Medications (Trade) Dose Ordered Sig/Raji Route Start Time Stop Time Status Last Admin (Tylenol) 650 mg Q4H PRN PO 02/17/17 00:30 03/23/17 16:56 (Milk Of Magnesia Liq) 30 ml Q12H PRN PO 02/17/17 00:30 (Narcan Inj) 0.4 mg UNSCH PRN IV 02/17/17 00:30 Miscellaneous Information Patient in critical care unit? Ass... Q361D XX 02/17/17 04:15 02/17/17 04:15 (Dulcolax Supp) 10 mg DAILY RECTAL 02/18/17 09:00 03/12/17 09:39 (Parlodel) 2.5 mg Q12HR PO 02/17/17 21:00 03/23/17 09:07 (Pepcid) 20 mg HS PO 02/17/17 21:00 03/22/17 22:18 (Levsin) 0.125 mg Q4H PRN PO 02/17/17 11:15 (Motrin Liq) 200 mg Q6H PRN PO 02/17/17 11:15 03/23/17 06:57 (Malu-Colace) 1 tab BID PO 02/17/17 21:00 03/22/17 22:19 (Lactulose Liq) 30 ml DAILY PRN PO 02/19/17 07:30 (Prevacid Odt) 30 mg DAILY NG 02/19/17 09:00 03/23/17 09:08 (Roxicodone) 5 mg Q4H PRN PEG 02/19/17 08:00 03/20/17 09:02 (Tears Naturale Opth Soln) 1 drop Q6HR EACH EYE 02/22/17 19:00 03/23/17 06:57 (Vimpat) 50 mg BID G-TUBE 02/25/17 09:00 03/23/17 09:08 (Pill Splitter) 1 ea UNSCH PRN OTHER 03/01/17 23:45 (NS Flush) 2 ml UNSCH PRN IVF 03/05/17 18:00 (NS Flush) 2 ml BID IVF 03/05/17 21:00 03/23/17 09:00 (Lopressor) 25 mg Q8H PO 03/06/17 18:00 03/23/17 16:57 (Lovenox Inj) 50 mg Q12H SQ 03/14/17 18:00 03/23/17 17:01 (PHENobarbital LIQ) 60 mg Q12HR PEG 03/16/17 21:00 03/23/17 11:05 (Dilantin Liq) 150 mg Q8HR PEG 03/16/17 22:00 03/23/17 14:52 (Zofran Odt) 4 mg Q6H PRN PO 03/16/17 21:00 ([place]) Medical Decision Making MDM Remarks 22 y/o female with a history of TBI POD # 18 s/p craniotomy for bone flap replacement Neurological function appears stable Upper extremity venous thrombosis ([place]) Plan Plan Remarks Continue neuro checks Continue anticonvulsants per Neurology Continue heparin drip for upper extremity DVT Continue mechanical DVT prophylaxis Primary management & HR mgmt per Trauma Lai to reassess patient per ([place]) Attending Statement I have personally seen and examined the patient on the date of this note. Pertinent documentation and study results have been reviewed by the undersigned. I have personally developed the treatment plan and performed medical decision making. Agree with findings, exam, and treatment plan as noted above. Discussed with patient's this evening. She is noted to have occasional tonic left inferior lateral gaze lasting a few seconds. Not definitely seizure activity. Continue observation Neurology following. Stable for discharge to SNF or inpatient rehabilitation from neurosurgery standpoint. (Victor Hugo Gibson MD) [place] March 23, 2017 19:19 Victor Hugo Gibson MD March 23, 2017 21:51
[2017-03-23] MEDS: FAMOTIDINE 20 MG TAB PO SCH (22:57)
[2017-03-24] VITALS (13 sets, daily range): BP systolic 120–130; BP diastolic 63–80; PULSE 98–115; RESP 19–23; TEMP 98–99.4; O2SAT 95–100
[2017-03-24] MEDS: RESP: ALBUTEROL 2.5 MG/IPRATROPIUM 0.5 MG NEB (SCH) NEB ×7 (00:09→23:36)
[2017-03-24] MEDS: METOPROLOL TARTRATE 25 MG TAB PO SCH ×3 (01:58→17:53)
[2017-03-24] MEDS: PHENYTOIN SUSP 100 MG/4 ML CUP PEG SCH ×3 (07:04→21:37)
[2017-03-24] MEDS: ENOXAPARIN SODIUM 60 MG/0.6 ML SYRINGE SQ SCH ×2 (07:04→17:54)
[2017-03-24] MEDS: ARTIFICIAL TEARS OPTH SOLN 15 ML BTL EACH EYE SCH ×4 (07:05→17:54)
[2017-03-24] MEDS: DOCUSATE SODIUM 50 MG/SENNA 8.6 MG TAB PO SCH ×2 (08:22→21:00)
[2017-03-24] MEDS: LACOSAMIDE 50 MG TAB G-TUBE SCH ×2 (08:22→21:37)
[2017-03-24] MEDS: BROMOCRIPTINE MESYLATE 2.5 MG TAB PO SCH ×2 (08:22→21:35)
[2017-03-24] MEDS: LANSOPRAZOLE SOLUTAB 30 MG TAB NG SCH (08:22)
[2017-03-24] MEDS: PHENobarbital ELIX 20 MG/5 ML CUP PEG SCH ×2 (08:23→21:37)
[2017-03-24] MEDS: SODIUM CHLORIDE 0.9% FLUSH 5 ML FLUSH IVF SCH ×2 (08:24→21:00)
[2017-03-24] MEDS: BISACODYL 10 MG SUPP RECTAL SCH (09:00)
[2017-03-24 13:01] LABS: PHENOBARBITAL 23.9 MCG/ML (15.0-40.0)
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
--- NOTE | 2017-03-24 17:50 | HHI.PR ---
Subjective Remarks Awake and stable , On a T bar at 28 %. CXR is clear ,No fever .Had trach capped since last PM . No seizures noted. Objective Vital Signs Date Time Temp Pulse Resp B/P Pulse Ox O2 Delivery O2 Flow Rate FiO2 03/24/17 16:00 99.2 107 19 126/64 99 03/24/17 12:00 98.0 111 20 130/77 97 03/24/17 08:42 98 Blow-by 28 03/24/17 08:42 99 T-piece 03/24/17 08:00 98.7 103 20 128/65 100 03/24/17 04:20 100 T-piece 03/24/17 04:15 98.0 108 23 120/80 100 03/24/17 03:15 99 T-Piece 28 Humidified 03/24/17 02:47 98 03/24/17 01:10 99 T-Piece 28 Humidified 03/24/17 00:31 18 03/24/17 00:13 98 T-piece 28 03/24/17 00:00 98.1 103 20 125/80 100 03/23/17 21:45 98.8 120 21 128/88 99 03/23/17 20:46 99 Nasal Cannula 2.00 03/23/17 20:46 99 Nasal Cannula 2.00 03/23/17 20:05 107 I/O 03/23/17 03/23/17 03/23/17 03/24/17 03/24/17 03/24/17 07:00 15:00 23:00 07:00 15:00 23:00 Intake Total 0 ml 0 ml Output Total 375 ml 2 ml Balance -375 ml 0 ml -2 ml Intake Oral 0 ml 0 ml Output Urine Total 375 ml 2 ml # Voids 1 1 2 # Bowel Movements 0 3 0 0 1 Procedures Replacement craniotomy bone flap 03/06/17 Side: Left Objective Remarks PHYSICAL EXAMINATION GENERAL: Averagely built young white female with no acute distress. She was lying flat. She has trach tube in place with a cap. HEENT: Head normocephalic. eyes clear. NECK: Supple. No bruits, no venous distension. Trach site OK. CHEST: Equal movements with clear lung lawson. CARDIAC: Heart sounds are regular. No murmur. ABDOMEN: Soft and nontender.PEG +. Bowel sounds are active. EXTREMITIES: Weakness of the lower limbs and left side . Contractures of limbs. She is awake and moves right arm to command SKIN: Dry and warm Assessment and Plan Assessment and Plan IMPRESSION 1. Respiratory failure with a history of MRSA pneumonia 2. Status post craniotomy for a subdural hematoma and traumatic brain injury 3. Right rib fractures with history of pneumothorax, resolved 4. Tachycardia Plan : 1. T bar at 28 %. 2. Suction and lavage trach . 3. Nebs qid , albuterol prn. 4. Cap Trach up to 10 hrs. Then to Trach collar 28 % 5. PT evaluation 6. Tube feeds as ordered. 7. O2 N/C 2 Michela Kaiser MD March 24, 2017 17:50
[2017-03-24] MEDS: FAMOTIDINE 20 MG TAB PO SCH (21:37)
[2017-03-25] VITALS (11 sets, daily range): BP systolic 110–149; BP diastolic 62–88; PULSE 96–115; RESP 17–19; TEMP 96.1–99.3; O2SAT 97–100
[2017-03-25] MEDS: ARTIFICIAL TEARS OPTH SOLN 15 ML BTL EACH EYE SCH ×5 (01:00→23:21)
[2017-03-25] MEDS: METOPROLOL TARTRATE 25 MG TAB PO SCH ×3 (02:00→16:57)
[2017-03-25] MEDS: RESP: ALBUTEROL 2.5 MG/IPRATROPIUM 0.5 MG NEB (SCH) NEB ×5 (03:45→20:21)
[2017-03-25] MEDS: PHENYTOIN SUSP 100 MG/4 ML CUP PEG SCH ×3 (06:24→23:22)
[2017-03-25] MEDS: ENOXAPARIN SODIUM 60 MG/0.6 ML SYRINGE SQ SCH ×2 (06:24→16:57)
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
[2017-03-25] MEDS: LANSOPRAZOLE SOLUTAB 30 MG TAB NG SCH (09:49)
[2017-03-25] MEDS: BROMOCRIPTINE MESYLATE 2.5 MG TAB PO SCH ×2 (09:49→21:00)
[2017-03-25] MEDS: PHENobarbital ELIX 20 MG/5 ML CUP PEG SCH ×2 (09:49→21:53)
[2017-03-25] MEDS: LACOSAMIDE 50 MG TAB G-TUBE SCH ×2 (09:49→21:53)
[2017-03-25] MEDS: DOCUSATE SODIUM 50 MG/SENNA 8.6 MG TAB PO SCH ×2 (09:49→21:53)
[2017-03-25] MEDS: SODIUM CHLORIDE 0.9% FLUSH 5 ML FLUSH IVF SCH ×2 (09:49→21:00)
[2017-03-25] MEDS: BISACODYL 10 MG SUPP RECTAL SCH (09:49)
--- NOTE | 2017-03-25 14:26 | HHI.NSPN ---
([place]) Note Status Status: Progress Note ([place]) Interval History Interval History Ms. Laurent is a 22 y/o female with a history of TBI 03/05: To OR for: Replacement left craniotomy bone flap Left frontotemporoparietal duraplasty 03/06: POD # 1 replacement craniotomy bone flap 03/07: today mildly opening eyes, however not following commands 03/08: f/u CT Head completed, more awake today 03/09: Patient opens eyes spontaneously but not tracking 03/10: Patient opens eyes to noxious stimuli, Nursing reports she is more responsive to than staff 03/11: Patient transferred to regular med/surg floor 03/12: Eyes open, smiles, still tachycardiac 03/13: Patient drowsy today, minimally follows commands. 03/14/17: Heparin IV started for DVT. CT Head satisfactory 03/16: Patient awake, OT at bedside doing LUE exercises 03/17: Patient sleeping, not responding to verbal stimuli, no apparent distress. Samantha to craniotomy incision removed yesterday. 03/18: Patient awake, follows some commands. 03/19: Patient asleep but awakens to verbal stimuli, follows commands but not consistently. 03/20: Patient awakes, smiles when asked to, follows commands but not consistently, NAD. states she was tachycardiac in the 140s earlier and was given Roxicodone. 03/21: Patient awakes, follows commands but not consistently, no new issues 03/23: Patient is awake, follows some commands inconsistently. states she has been "acting funny" today. 03/25: Patient is asleep when seen. She turns to the sound of this practitioner's voice and flutters her eyelids. She did smile to command but did not follow any other commands. She was seen moving the right leg spontaneously. Her stated Therapy had just worked with her. ([place]) Labs, Micro, & Vital Signs Constitutional Vital Signs Date Time Temp Pulse Resp B/P Pulse Ox O2 Delivery O2 Flow Rate FiO2 03/25/17 12:52 99.0 112 18 141/80 100 03/25/17 12:31 110 03/25/17 09:50 97 Nasal Cannula 2.00 03/25/17 08:31 97.8 98 19 142/84 100 03/25/17 08:29 100 Nasal Cannula 2.00 03/25/17 05:00 98.0 107 17 110/62 97 03/25/17 02:07 103 130/74 99 03/25/17 00:11 98 T-Piece 28 03/25/17 00:00 99.3 115 19 111/67 98 03/24/17 22:22 115 03/24/17 22:00 99.4 114 20 123/63 95 03/24/17 20:22 100 T-piece 28 03/24/17 20:22 100 T-piece 28 03/24/17 16:00 99.2 107 19 126/64 99 03/25/17 07:00 Intake Total 775 ml Balance 775 ml ([place]) Review of Systems/Exam ROS Unable to obtain ROS due to patient's mental status. Exam HEENT: Surgical incision well approximated w/o any evident drainage, erythema or streaking. PERRRL. Resp: Coarse bilaterally but sounds referred from upper airway, equal excursion , non-laboured, trached, on trach collar. CV: RRR w/o M/G/R but fast, cap refill < 2 sec, radial & pedal pulses 2+ bilaterally, no pedal edema. GI: Abdomen soft & nontender, bowel sounds present. Enteral feeds by PEG. Neuro: Asleep but turns head to practitioner's voice & flutters eyes. Smiles to command. Spontaneous movement of RLE but did not follow any other commands. ( [place]) Medications Current Medications Current Medications Medications (Trade) Dose Ordered Sig/Raji Route Start Time Stop Time Status Last Admin (Tylenol) 650 mg Q4H PRN PO 02/17/17 00:30 03/23/17 16:56 (Milk Of Magnesia Liq) 30 ml Q12H PRN PO 02/17/17 00:30 (Narcan Inj) 0.4 mg UNSCH PRN IV 02/17/17 00:30 Miscellaneous Information Patient in critical care unit? Ass... Q361D XX 02/17/17 04:15 02/17/17 04:15 (Dulcolax Supp) 10 mg DAILY RECTAL 02/18/17 09:00 03/12/17 09:39 (Parlodel) 2.5 mg Q12HR PO 02/17/17 21:00 03/24/17 21:35 (Pepcid) 20 mg HS PO 02/17/17 21:00 03/24/17 21:37 (Levsin) 0.125 mg Q4H PRN PO 02/17/17 11:15 (Motrin Liq) 200 mg Q6H PRN PO 02/17/17 11:15 03/23/17 22:56 (Malu-Colace) 1 tab BID PO 02/17/17 21:00 03/25/17 09:49 (Lactulose Liq) 30 ml DAILY PRN PO 02/19/17 07:30 (Prevacid Odt) 30 mg DAILY NG 02/19/17 09:00 03/25/17 09:49 (Roxicodone) 5 mg Q4H PRN PEG 02/19/17 08:00 03/24/17 21:39 (Tears Naturale Opth Soln) 1 drop Q6HR EACH EYE 02/22/17 19:00 03/25/17 12:09 (Vimpat) 50 mg BID G-TUBE 02/25/17 09:00 03/25/17 09:49 (Pill Splitter) 1 ea UNSCH PRN OTHER 03/01/17 23:45 (NS Flush) 2 ml UNSCH PRN IVF 03/05/17 18:00 (NS Flush) 2 ml BID IVF 03/05/17 21:00 03/25/17 09:49 (Lopressor) 25 mg Q8H PO 03/06/17 18:00 03/25/17 09:49 (Lovenox Inj) 50 mg Q12H SQ 03/14/17 18:00 03/25/17 06:24 (PHENobarbital LIQ) 60 mg Q12HR PEG 03/16/17 21:00 03/25/17 09:49 (Dilantin Liq) 150 mg Q8HR PEG 03/16/17 22:00 03/25/17 14:04 (Zofran Odt) 4 mg Q6H PRN PO 03/16/17 21:00 ([place]) Medical Decision Making MDM Remarks 22 y/o female with a history of TBI POD # 20 s/p craniotomy for bone flap replacement Neurological function appears stable Upper extremity venous thrombosis ([place]) Plan Plan Remarks Continue neuro checks Continue anticonvulsants per Neurology Continue heparin drip for upper extremity DVT Continue mechanical DVT prophylaxis Primary management & HR mgmt per Trauma Lai to reassess patient per ([place]) Attending Statement Patient was seen today by PIERCE Knight. The patient's treatment plan and findings discussed. Agree with plan as noted above. (Victor Hugo Gibson MD) [place] March 25, 2017 14:26 Victor Hugo Gibson MD March 25, 2017 19:50
--- NOTE | 2017-03-25 18:31 | HHI.PR ---
Subjective Remarks Awake and has trach capped. Smiles at times and moves right arm No fever. Objective Vital Signs Date Time Temp Pulse Resp B/P Pulse Ox O2 Delivery O2 Flow Rate FiO2 03/25/17 16:24 99.0 107 18 149/88 100 03/25/17 12:52 99.0 112 18 141/80 100 03/25/17 12:31 110 03/25/17 09:50 97 Nasal Cannula 2.00 03/25/17 08:31 97.8 98 19 142/84 100 03/25/17 08:29 100 Nasal Cannula 2.00 03/25/17 05:00 98.0 107 17 110/62 97 03/25/17 02:07 103 130/74 99 03/25/17 00:11 98 T-Piece 28 03/25/17 00:00 99.3 115 19 111/67 98 03/24/17 22:22 115 03/24/17 22:00 99.4 114 20 123/63 95 03/24/17 20:22 100 T-piece 28 03/24/17 20:22 100 T-piece 28 I/O 03/24/17 03/24/17 03/24/17 03/25/17 03/25/17 03/25/17 07:00 15:00 23:00 07:00 15:00 23:00 Intake Total 0 ml 775 ml Output Total 2 ml Balance -2 ml 775 ml Intake Oral 0 ml 0 ml Tube Feeding 475 ml Other 300 ml Output Urine Total 2 ml # Voids 2 1 3 # Bowel Movements 0 1 0 1 Procedures Replacement craniotomy bone flap 03/06/17 Side: Left Objective Remarks PHYSICAL EXAMINATION GENERAL: Averagely built young white female with no acute distress. She was lying flat. She has trach tube in place . HEENT: Head normocephalic. eyes clear. NECK: Supple. No bruits, no venous distension. Trach site OK. CHEST: Equal movements with clear lung lawson. CARDIAC: Heart sounds are regular. No murmur. ABDOMEN: Soft and nontender.PEG +. Bowel sounds are active. EXTREMITIES: Weakness of the lower limbs and left side . She is awake and moves right arm to command SKIN: Dry and warm Assessment and Plan Assessment and Plan IMPRESSION 1. Respiratory failure with a history of MRSA pneumonia 2. Status post craniotomy for a subdural hematoma and traumatic brain injury 3. Right rib fractures with history of pneumothorax, resolved 4. Tachycardia Plan : 1. Chest X ray in am 2. Suction and lavage trach . 3. Nebs qid , albuterol prn. 4. Cap Trach up to 12 hrs. Then to Trach collar 28 % 5. PT evaluation 6. Tube feeds as ordered. 7. O2 N/C 2 Michela Kaiser MD March 25, 2017 18:31
[2017-03-25] MEDS: FAMOTIDINE 20 MG TAB PO SCH (21:53)
[2017-03-26] VITALS (12 sets, daily range): BP systolic 101–141; BP diastolic 63–75; PULSE 86–122; RESP 18–20; TEMP 96.3–99; O2SAT 98–100
[2017-03-26] MEDS: RESP: ALBUTEROL 2.5 MG/IPRATROPIUM 0.5 MG NEB (SCH) NEB ×6 (00:14→21:51)
[2017-03-26] MEDS: METOPROLOL TARTRATE 25 MG TAB PO SCH ×3 (02:43→18:04)
[2017-03-26] MEDS: ENOXAPARIN SODIUM 60 MG/0.6 ML SYRINGE SQ SCH ×2 (06:30→18:03)
[2017-03-26] MEDS: ARTIFICIAL TEARS OPTH SOLN 15 ML BTL EACH EYE SCH ×3 (06:31→18:10)
[2017-03-26] MEDS: PHENYTOIN SUSP 100 MG/4 ML CUP PEG SCH ×3 (06:31→22:10)
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
[2017-03-26 08:05] LABS: BICARBONATE 29.6 MEQ/L (21.0-32.0); MAGNESIUM 2.1 MG/DL (1.5-2.5); POTASSIUM 3.9 MEQ/L (3.5-5.1)
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
[2017-03-26] MEDS: BISACODYL 10 MG SUPP RECTAL SCH (09:00)
[2017-03-26] MEDS: LANSOPRAZOLE SOLUTAB 30 MG TAB NG SCH (09:00)
[2017-03-26] MEDS: SODIUM CHLORIDE 0.9% FLUSH 5 ML FLUSH IVF SCH ×2 (09:00→21:00)
[2017-03-26] MEDS: LACOSAMIDE 50 MG TAB G-TUBE SCH ×2 (09:10→22:10)
[2017-03-26] MEDS: BROMOCRIPTINE MESYLATE 2.5 MG TAB PO SCH ×2 (09:10→22:09)
[2017-03-26] MEDS: DOCUSATE SODIUM 50 MG/SENNA 8.6 MG TAB PO SCH ×2 (09:11→22:09)
[2017-03-26] MEDS: PHENobarbital ELIX 20 MG/5 ML CUP PEG SCH ×2 (09:11→22:10)
--- NOTE | 2017-03-26 17:59 | HHI.PR ---
Subjective Remarks Awake and has trach capped. moves right arm and leg. No fever. Objective Vital Signs Date Time Temp Pulse Resp B/P Pulse Ox O2 Delivery O2 Flow Rate FiO2 03/26/17 16:59 98.1 106 19 120/73 100 03/26/17 12:24 98.0 109 20 122/70 100 03/26/17 12:00 99 Nasal Cannula 4.00 03/26/17 08:53 98 T-piece 6.00 28 03/26/17 08:53 98 T-piece 6.00 28 03/26/17 08:23 98.1 113 20 141/63 98 03/26/17 08:05 114 03/26/17 05:17 99 T-piece 28 03/26/17 04:00 99.0 117 18 121/75 98 03/26/17 00:15 99 Nasal Cannula 28 03/26/17 00:00 97.0 122 20 134/64 99 03/25/17 22:00 Nasal Cannula 2.00 28 03/25/17 22:00 96 03/25/17 20:21 100 Nasal Cannula 2.00 03/25/17 20:21 100 Nasal Cannula 2.00 03/25/17 20:00 96.1 113 18 120/72 100 I/O 03/25/17 03/25/17 03/25/17 03/26/17 03/26/17 03/26/17 07:00 15:00 23:00 07:00 15:00 23:00 Intake Total 775 ml 560 ml Balance 775 ml 560 ml Intake Oral 0 ml Tube Feeding 475 ml 360 ml Other 300 ml 200 ml # Voids 1 3 3 3 # Bowel Movements 0 1 1 Result Diagram: 03/26/17 0657 Procedures Replacement craniotomy bone flap 03/06/17 Side: Left Objective Remarks PHYSICAL EXAMINATION GENERAL: Averagely built young white female with no acute distress. She has trach tube in place . HEENT: Head normocephalic. eyes clear. NECK: Supple. No bruits, no venous distension. Trach site OK. CHEST: Equal movements with occ wheeze . CARDIAC: Heart sounds are regular. No murmur. ABDOMEN: Soft and nontender.PEG +. Bowel sounds are active. EXTREMITIES: Weakness of the lower limbs and left side . She is awake and moves right arm to command SKIN: Dry and warm Assessment and Plan Assessment and Plan IMPRESSION 1. Respiratory failure with a history of MRSA pneumonia 2. Status post craniotomy for a subdural hematoma and traumatic brain injury 3. Right rib fractures with history of pneumothorax, resolved 4. Tachycardia Plan : 1. Mucomyst 10 % solution 2 CC tid PRN 2. Suction and lavage trach . 3. Nebs qid , albuterol prn. 4. Cap Trach up to 8 hrs. Then to Trach collar 28 % 5. PT evaluation 6. Tube feeds as ordered. 7. O2 N/C 2 Michela Kaiser MD March 26, 2017 17:59
[2017-03-26] MEDS: IBUPROFEN SUSP 100 MG/5 ML UDC PO PRN (18:04)
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
[2017-03-26] MEDS: FAMOTIDINE 20 MG TAB PO SCH (22:10)
[2017-03-27] VITALS (14 sets, daily range): BP systolic 108–141; BP diastolic 69–83; PULSE 82–125; RESP 19–20; TEMP 96.7–99; O2SAT 96–100
[2017-03-27] MEDS: RESP: ALBUTEROL 2.5 MG/IPRATROPIUM 0.5 MG NEB (SCH) NEB ×6 (00:27→20:18)
[2017-03-27] MEDS: METOPROLOL TARTRATE 25 MG TAB PO SCH ×3 (01:55→17:54)
[2017-03-27] MEDS: ARTIFICIAL TEARS OPTH SOLN 15 ML BTL EACH EYE SCH ×4 (01:56→17:54)
[2017-03-27] MEDS: PHENYTOIN SUSP 100 MG/4 ML CUP PEG SCH ×3 (06:42→21:32)
[2017-03-27] MEDS: ENOXAPARIN SODIUM 60 MG/0.6 ML SYRINGE SQ SCH ×2 (06:51→17:54)
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
[2017-03-27] MEDS: SODIUM CHLORIDE 0.9% FLUSH 5 ML FLUSH IVF SCH ×2 (09:00→21:00)
[2017-03-27] MEDS: LACOSAMIDE 50 MG TAB G-TUBE SCH ×2 (09:18→21:32)
[2017-03-27] MEDS: DOCUSATE SODIUM 50 MG/SENNA 8.6 MG TAB PO SCH ×2 (09:18→21:00)
[2017-03-27] MEDS: BISACODYL 10 MG SUPP RECTAL SCH (09:18)
[2017-03-27] MEDS: BROMOCRIPTINE MESYLATE 2.5 MG TAB PO SCH ×2 (09:18→21:38)
[2017-03-27] MEDS: LANSOPRAZOLE SOLUTAB 30 MG TAB NG SCH (09:19)
[2017-03-27] MEDS: PHENobarbital ELIX 20 MG/5 ML CUP PEG SCH ×2 (09:25→21:32)
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
--- NOTE | 2017-03-27 13:29 | HHI.NSPN ---
([place]) Note Status Status: Progress Note ([place]) Interval History Interval History Ms. Laurent is a 22 y/o female with a history of TBI 03/05: To OR for: Replacement left craniotomy bone flap Left frontotemporoparietal duraplasty 03/06: POD # 1 replacement craniotomy bone flap 03/07: today mildly opening eyes, however not following commands 03/08: f/u CT Head completed, more awake today 03/09: Patient opens eyes spontaneously but not tracking 03/10: Patient opens eyes to noxious stimuli, Nursing reports she is more responsive to than staff 03/11: Patient transferred to regular med/surg floor 03/12: Eyes open, smiles, still tachycardiac 03/13: Patient drowsy today, minimally follows commands. 03/14/17: Heparin IV started for DVT. CT Head satisfactory 03/16: Patient awake, OT at bedside doing LUE exercises 03/17: Patient sleeping, not responding to verbal stimuli, no apparent distress. Samantha to craniotomy incision removed yesterday. 03/18: Patient awake, follows some commands. 03/19: Patient asleep but awakens to verbal stimuli, follows commands but not consistently. 03/20: Patient awakes, smiles when asked to, follows commands but not consistently, NAD. states she was tachycardiac in the 140s earlier and was given Roxicodone. 03/21: Patient awakes, follows commands but not consistently, no new issues 03/23: Patient is awake, follows some commands inconsistently. states she has been "acting funny" today. 03/25: Patient is asleep when seen. She turns to the sound of this practitioner's voice and flutters her eyelids. She did smile to command but did not follow any other commands. She was seen moving the right leg spontaneously. Her stated Therapy had just worked with her. 03/27: Patient asleep when initially seen this morning and did not respond to verbal stimuli. When seen this afternoon the patient did finally start to flutter her eyes and smile upon command after being coaxed. She was noted to spontaneously move the RUE & BLE. She did move the BLE to noxious stimuli applied to the LUE. It was difficult to tell if she did attempt to wiggle the toes to command because she would move her feet. ([place]) Labs, Micro, & Vital Signs Results Allergies Coded Allergies Type Severity Reaction Last Updated Verified No Known Allergies 12/15/16 No Recent Impressions Chest X-Ray 03/26/17 0600 Signed Impressions: Service Date/Time: March 06:42 - CONCLUSION: No acute disease. Ray Lee MD / 06:00 18:00 06:00 18:00 06:00 18:00 Intake Total 0 ml 775 ml 560 ml Balance 0 ml 775 ml 560 ml Intake Oral 0 ml Tube Feeding 475 ml 360 ml Other 300 ml 200 ml # Voids 1 3 3 3 1 # Bowel Movements 0 1 1 Laboratory Tests Test 03/26/17 06:57 Sodium Level 136 MEQ/L Potassium Level 3.9 MEQ/L Chloride Level 97 MEQ/L Carbon Dioxide Level 29.6 MEQ/L Anion Gap 9 MEQ/L Blood Urea Nitrogen 8 MG/DL Creatinine 0.27 MG/DL Estimat Glomerular Filtration 309 ML/MIN Rate Random Glucose 105 MG/DL Calcium Level 9.7 MG/DL Phosphorus Level 4.0 MG/DL Magnesium Level 2.1 MG/DL Constitutional Vital Signs Date Time Temp Pulse Resp B/P Pulse Ox O2 Delivery O2 Flow Rate FiO2 03/27/17 12:37 99.0 108 20 116/77 97 03/27/17 10:30 98 Nasal Cannula 3.00 03/27/17 08:34 98.0 113 20 127/75 99 03/27/17 08:12 96 T-piece 6.00 28 03/27/17 08:06 96 T-piece 6.00 28 03/27/17 08:00 100 3.00 03/27/17 04:34 97 T-piece 28 03/27/17 04:00 96.7 82 20 108/69 98 03/27/17 00:29 100 T-piece 28 03/27/17 00:00 98.4 116 20 136/75 100 03/26/17 21:51 100 T-piece 6.00 28 03/26/17 20:00 96.3 86 20 101/67 98 03/26/17 20:00 121 03/26/17 16:59 98.1 106 19 120/73 100 ([place]) Review of Systems/Exam ROS Unable to obtain ROS due to patient's mental status. Exam HEENT: Surgical incision well approximated w/o any evident drainage, erythema or streaking. PERRRL. Resp: Coarse bilaterally but sounds referred from upper airway, equal excursion , non-laboured, trached, on trach collar. CV: RRR w/o M/G/R but fast, cap refill < 2 sec, radial & pedal pulses 2+ bilaterally, no pedal edema. GI: Abdomen soft & nontender, bowel sounds present. Enteral feeds by PEG. Neuro: Asleep but did flutter her eyes and smile upon command after being coaxed. She was noted to spontaneously move the RUE & BLE. She did move the BLE to noxious stimuli applied to the LUE. It was difficult to tell if she did attempt to wiggle the toes to command because she would move her feet. ([place]) Medications Current Medications Current Medications Medications (Trade) Dose Ordered Sig/Raji Route Start Time Stop Time Status Last Admin (Tylenol) 650 mg Q4H PRN PO 02/17/17 00:30 03/23/17 16:56 (Milk Of Magnesia Liq) 30 ml Q12H PRN PO 02/17/17 00:30 (Narcan Inj) 0.4 mg UNSCH PRN IV 02/17/17 00:30 Miscellaneous Information Patient in critical care unit? Ass... Q361D XX 02/17/17 04:15 02/17/17 04:15 (Dulcolax Supp) 10 mg DAILY RECTAL 02/18/17 09:00 03/27/17 09:18 (Parlodel) 2.5 mg Q12HR PO 02/17/17 21:00 03/27/17 09:18 (Pepcid) 20 mg HS PO 02/17/17 21:00 03/26/17 22:10 (Levsin) 0.125 mg Q4H PRN PO 02/17/17 11:15 (Motrin Liq) 200 mg Q6H PRN PO 02/17/17 11:15 03/26/17 18:04 (Malu-Colace) 1 tab BID PO 02/17/17 21:00 03/27/17 09:18 (Lactulose Liq) 30 ml DAILY PRN PO 02/19/17 07:30 (Prevacid Odt) 30 mg DAILY NG 02/19/17 09:00 03/27/17 09:19 (Roxicodone) 5 mg Q4H PRN PEG 02/19/17 08:00 03/24/17 21:39 (Tears Naturale Opth Soln) 1 drop Q6HR EACH EYE 02/22/17 19:00 03/27/17 13:18 (Vimpat) 50 mg BID G-TUBE 02/25/17 09:00 03/27/17 09:18 (Pill Splitter) 1 ea UNSCH PRN OTHER 03/01/17 23:45 (NS Flush) 2 ml UNSCH PRN IVF 03/05/17 18:00 (NS Flush) 2 ml BID IVF 03/05/17 21:00 03/27/17 09:00 (Lopressor) 25 mg Q8H PO 03/06/17 18:00 03/27/17 09:18 (Lovenox Inj) 50 mg Q12H SQ 03/14/17 18:00 03/27/17 06:51 (PHENobarbital LIQ) 60 mg Q12HR PEG 03/16/17 21:00 03/27/17 09:25 (Dilantin Liq) 150 mg Q8HR PEG 03/16/17 22:00 03/27/17 13:18 (Zofran Odt) 4 mg Q6H PRN PO 03/16/17 21:00 ([place]) Medical Decision Making MDM Remarks 22 y/o female with a history of TBI POD # 22 s/p craniotomy for bone flap replacement Neurological function appears stable Upper extremity venous thrombosis ([place]) Plan Plan Remarks Continue neuro checks Continue anticonvulsants per Neurology Continue heparin drip for upper extremity DVT Continue mechanical DVT prophylaxis Primary management & HR mgmt per Trauma Awaiting acceptance for rehab ([place]) Attending Statement I have personally seen and examined the patient on the date of this note. Pertinent documentation and study results have been reviewed by the undersigned. I have personally developed the treatment plan and performed medical decision making. Agree with findings, exam, and treatment plan as noted above. Patient will little less responsive this morning. Mental status fluctuates throughout the day. Incision remained dry and intact. Generally neurologically stable over the past week. Stable for discharge to inpatient rehabilitation with arrangements made. (Victor Hugo Gibson MD) [place] March 27, 2017 13:29 Victor Hugo Gibson MD March 27, 2017 22:30
--- NOTE | 2017-03-27 18:04 | HHI.PR ---
Subjective Remarks Awake and has trach capped. moves right arm and leg. Responds sometimes to commands. Objective Vital Signs Date Time Temp Pulse Resp B/P Pulse Ox O2 Delivery O2 Flow Rate FiO2 03/27/17 17:11 97.9 118 20 141/83 100 03/27/17 15:45 104 03/27/17 12:37 99.0 108 20 116/77 97 03/27/17 10:30 98 Nasal Cannula 3.00 03/27/17 08:34 98.0 113 20 127/75 99 03/27/17 08:12 96 T-piece 6.00 28 03/27/17 08:06 96 T-piece 6.00 28 03/27/17 08:00 100 3.00 03/27/17 04:34 97 T-piece 28 03/27/17 04:00 96.7 82 20 108/69 98 03/27/17 00:29 100 T-piece 28 03/27/17 00:00 98.4 116 20 136/75 100 03/26/17 21:51 100 T-piece 6.00 28 03/26/17 20:00 96.3 86 20 101/67 98 03/26/17 20:00 121 I/O 03/26/17 03/26/17 03/26/17 03/27/17 03/27/17 03/27/17 07:00 15:00 23:00 07:00 15:00 23:00 Intake Total 560 ml Balance 560 ml Tube Feeding 360 ml Other 200 ml # Voids 3 3 1 5 # Bowel Movements 1 2 Result Diagram: 03/26/17 0657 Procedures Replacement craniotomy bone flap 03/06/17 Side: Left Objective Remarks PHYSICAL EXAMINATION GENERAL: Averagely built young white female with no acute distress. HEENT: Head normocephalic. eyes clear. No bruits, no venous distension. Trach site OK. CHEST: Equal movements with clear lungs. CARDIAC: Heart sounds are regular. No murmur. ABDOMEN: Soft and nontender.PEG +. Bowel sounds are active. EXTREMITIES: Weakness of the lower limbs and left side . She is awake and moves right arm to command SKIN: Dry and warm Assessment and Plan Assessment and Plan IMPRESSION 1. Respiratory failure with a history of MRSA pneumonia 2. Status post craniotomy for a subdural hematoma and traumatic brain injury 3. Right rib fractures with history of pneumothorax, resolved 4. Tachycardia Plan : 1. O2 2 L 2. Suction and lavage trach . 3. Nebs qid , albuterol prn. 4. Cap Trach up to 12 hrs. Then to Trach collar 28 % 5. PT evaluation 6. Tube feeds as ordered. 7. CBC,BMP on Thursday Michela Mohr MD March 27, 2017 18:04
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
[2017-03-27] MEDS: FAMOTIDINE 20 MG TAB PO SCH (21:33)
[2017-03-28] VITALS (12 sets, daily range): BP systolic 120–147; BP diastolic 65–84; PULSE 107–127; RESP 16–21; TEMP 97.5–99; O2SAT 97–100
[2017-03-28] MEDS: RESP: ALBUTEROL 2.5 MG/IPRATROPIUM 0.5 MG NEB (SCH) NEB ×6 (00:27→21:02)
[2017-03-28] MEDS: METOPROLOL TARTRATE 25 MG TAB PO SCH ×3 (01:31→17:24)
[2017-03-28] MEDS: ARTIFICIAL TEARS OPTH SOLN 15 ML BTL EACH EYE SCH ×4 (01:32→17:23)
[2017-03-28] MEDS: ENOXAPARIN SODIUM 60 MG/0.6 ML SYRINGE SQ SCH ×2 (06:47→17:24)
[2017-03-28] MEDS: PHENYTOIN SUSP 100 MG/4 ML CUP PEG SCH ×3 (06:47→21:10)
[2017-03-28] MEDS: SODIUM CHLORIDE 0.9% FLUSH 5 ML FLUSH IVF SCH ×2 (08:54→21:00)
[2017-03-28] MEDS: PHENobarbital ELIX 20 MG/5 ML CUP PEG SCH ×2 (08:55→21:10)
[2017-03-28] MEDS: BISACODYL 10 MG SUPP RECTAL SCH (08:55)
[2017-03-28] MEDS: LACOSAMIDE 50 MG TAB G-TUBE SCH ×2 (08:55→21:10)
[2017-03-28] MEDS: LANSOPRAZOLE SOLUTAB 30 MG TAB NG SCH (08:56)
[2017-03-28] MEDS: BROMOCRIPTINE MESYLATE 2.5 MG TAB PO SCH ×2 (08:56→21:10)
[2017-03-28] MEDS: DOCUSATE SODIUM 50 MG/SENNA 8.6 MG TAB PO SCH ×2 (08:56→21:00)
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
[2017-03-28] MEDS ORDERED: BISACODYL 10 MG SUPP RECTAL PRN (10:30)
[2017-03-28] MEDS: FAMOTIDINE 20 MG TAB PO SCH (21:10)
[2017-03-29] VITALS (11 sets, daily range): BP systolic 108–176; BP diastolic 70–98; PULSE 110–132; RESP 16–18; TEMP 98.2–99.1; O2SAT 93–100
[2017-03-29] MEDS: ARTIFICIAL TEARS OPTH SOLN 15 ML BTL EACH EYE SCH ×4 (00:58→18:31)
[2017-03-29] MEDS: METOPROLOL TARTRATE 25 MG TAB PO SCH ×3 (00:58→18:32)
[2017-03-29] MEDS: RESP: ALBUTEROL 2.5 MG/IPRATROPIUM 0.5 MG NEB (SCH) NEB ×6 (01:03→19:55)
[2017-03-29] MEDS: ENOXAPARIN SODIUM 60 MG/0.6 ML SYRINGE SQ SCH ×2 (06:24→18:32)
[2017-03-29] MEDS: PHENYTOIN SUSP 100 MG/4 ML CUP PEG SCH ×3 (06:24→22:03)
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
[2017-03-29] MEDS: LACOSAMIDE 50 MG TAB G-TUBE SCH ×2 (09:18→22:04)
[2017-03-29] MEDS: SODIUM CHLORIDE 0.9% FLUSH 5 ML FLUSH IVF SCH (09:18)
[2017-03-29] MEDS: BROMOCRIPTINE MESYLATE 2.5 MG TAB PO SCH ×2 (09:19→22:02)
[2017-03-29] MEDS: PHENobarbital ELIX 20 MG/5 ML CUP PEG SCH ×2 (09:19→22:03)
[2017-03-29] MEDS: LANSOPRAZOLE SOLUTAB 30 MG TAB NG SCH (09:19)
[2017-03-29] MEDS: DOCUSATE SODIUM 50 MG/SENNA 8.6 MG TAB PO SCH ×2 (09:19→21:00)
[2017-03-29] MEDS: ACETAMINOPHEN 325 MG TAB PO PRN (13:55)
[2017-03-29 20:12] LABS: PHENOBARBITAL 24.2 MCG/ML (15.0-40.0)
[2017-03-29] MEDS: FAMOTIDINE 20 MG TAB PO SCH (22:03)
[2017-03-30] VITALS (9 sets, daily range): BP systolic 118–142; BP diastolic 69–92; PULSE 111–125; RESP 16–22; TEMP 97.7–99; O2SAT 96–100
[2017-03-30] MEDS: RESP: ALBUTEROL 2.5 MG/IPRATROPIUM 0.5 MG NEB (SCH) NEB ×6 (00:13→21:36)
[2017-03-30] MEDS: METOPROLOL TARTRATE 25 MG TAB PO SCH ×3 (02:51→17:56)
[2017-03-30] MEDS: ARTIFICIAL TEARS OPTH SOLN 15 ML BTL EACH EYE SCH ×3 (02:52→17:55)
[2017-03-30] MEDS: SODIUM CHLORIDE 0.9% FLUSH 5 ML FLUSH IVF SCH ×2 (09:00→22:24)
[2017-03-30] MEDS: PHENobarbital ELIX 20 MG/5 ML CUP PEG SCH ×2 (09:35→22:24)
[2017-03-30] MEDS: LACOSAMIDE 50 MG TAB G-TUBE SCH ×2 (09:36→22:24)
[2017-03-30] MEDS: BROMOCRIPTINE MESYLATE 2.5 MG TAB PO SCH ×2 (09:36→22:25)
[2017-03-30] MEDS: LANSOPRAZOLE SOLUTAB 30 MG TAB NG SCH (09:36)
[2017-03-30] MEDS: DOCUSATE SODIUM 50 MG/SENNA 8.6 MG TAB PO SCH ×2 (09:36→22:25)
--- NOTE | 2017-03-30 11:14 | HHI.PR ---
Subjective Remarks Patient continued to remain nonverbal. She does not follow commands. Her nurse is at the bedside. No acute events. No complaints from her nurse. Objective Vitals Vital Signs Date Time Temp Pulse Resp B/P Pulse Ox O2 Delivery O2 Flow Rate FiO2 03/30/17 10:30 99.0 111 22 124/74 97 03/30/17 09:29 96 T-piece 5.00 28 03/30/17 09:29 96 T-piece 5.00 28 03/30/17 07:55 98.9 119 22 142/92 99 03/30/17 06:36 98.7 112 18 136/85 98 03/30/17 00:00 97.8 114 16 118/69 98 03/29/17 20:00 99.1 118 16 139/88 100 03/29/17 19:55 100 Nasal Cannula 2.00 03/29/17 19:55 100 Nasal Cannula 2.00 03/29/17 16:00 98.2 117 16 122/78 100 03/29/17 12:15 132 03/29/17 11:56 98.8 114 16 138/90 100 I/O 03/29/17 03/29/17 03/29/17 03/30/17 03/30/17 03/30/17 06:59 14:59 22:59 06:59 14:59 22:59 Intake Total 768 ml 801 ml 457 ml Balance 768 ml 801 ml 457 ml Tube Feeding 468 ml 801 ml 457 ml Other 300 ml # Voids 3 1 1 1 # Bowel Movements 0 1 0 Result Diagram: 03/26/17 0657 Objective Remarks GENERAL: in NAD trach is in place. CARDIOVASCULAR: Regular rate and rhythm without murmurs, gallops, or rubs. RESPIRATORY: Breath sounds equal bilaterally. No accessory muscle use. GASTROINTESTINAL: Abdomen soft, non-tender, nondistended. PEG is in place. MUSCULOSKELETAL: No cyanosis, or edema. BACK: Nontender without obvious deformity. No CVA tenderness. NEURO: Patient does not follow any commands. She is AAO 0. Procedures Replacement craniotomy bone flap 03/06/17 Medications and IVs Current Medications Sodium Chloride (NS Flush) 2 ml UNSCH PRN IV FLUSH FLUSH AFTER USING IV ACCESS ; Start 02/17/17 at 00:30; Stop 03/05/17 at 18:35; Status DC Sodium Chloride (NS Flush) 2 ml BID IV FLUSH Last administered on 03/05/17 08: 32; Start 02/17/17 at 09:00; Stop 03/05/17 at 18:35; Status DC Acetaminophen (Tylenol) 650 mg Q4H PRN PO TEMP > 100.4 Last administered on 03/29 13:55; Start 02/17/17 at 00:30 Ondansetron HCl (Zofran Inj) 4 mg Q6H PRN IVP NAUSEA OR VOMITING; Start at 00:30; Stop 03/16/17 at 20:08; Status DC Bisacodyl (Dulcolax Supp) 10 mg DAILY PRN [place] SEE LABEL COMMENTS; Start at 00:30; Stop 02/17/17 at 11:25; Status DC Magnesium Hydroxide (Milk Of Magnesia Liq) 30 ml Q12H PRN PO CONSTIPATION; Start 02/17/17 at 00:30 Naloxone HCl (Narcan Inj) 0.4 mg UNSCH PRN IV SEE LABEL COMMENTS; Start at 00:30 Miscellaneous Information Patient in critical care unit? Ass... [id number] Last administered on 02/17/17 04:15; Start 02/17/17 at 04:15 Chlorhexidine Gluconate (Chlorhexidine 2% Cloth) 3 pack DAILY@04 TOPICAL Last administered on 02/22/17 04:00; Start 02/18/17 at 04:00; Stop 02/22/17 at 04:01; Status DC Chlorhexidine Gluconate (Chlorhexidine 2% Cloth) 3 pack UNSCH PRN TOPICAL HYGIENIC CARE; Start 02/17/17 at 04:15; Stop 02/22/17 at 04:04; Status DC Albuterol/ Ipratropium (Duoneb Neb) 1 ampule Q4HR NEB PRN NEB SHORTNESS OF BREATH Last administered on 03/09/17 10:27; Start 02/17/17 at 08:30; Stop 03/11 at 18:06; Status DC Bisacodyl (Dulcolax Supp) 10 mg DAILY RECTAL Last administered on 03/28/17 08: 55; Start 02/18/17 at 09:00; Stop 03/28/17 at 10:24; Status DC Bromocriptine Mesylate (Parlodel) 2.5 mg Q12HR PO Last administered on 09:36; Start 02/17/17 at 21:00 Famotidine (Pepcid) 20 mg HS PO Last administered on 03/29/17 22:03; Start at 21:00 Hyoscyamine Sulfate (Levsin) 0.125 mg Q4H PRN PO secretions; Start 02/17/17 at 11:15 Ibuprofen (Motrin Liq) 200 mg Q6H PRN PO temp>101 Last administered on 18:04; Start 02/17/17 at 11:15 Lactulose (Lactulose Liq) 30 ml DAILY PO Last administered on 02/18/17 09:05; Start 02/18/17 at 09:00; Stop 02/19/17 at 07:23; Status DC Levetriacetam (Keppra) 500 mg BID PO Last administered on 02/25/17 21:19; Start 02/17/17 at 11:30; Stop 02/26/17 at 08:46; Status DC Midodrine (Proamatine) 10 mg TID PO Last administered on 02/25/17 19:00; Start 02/17/17 at 13:00; Stop 02/26/17 at 10:10; Status DC Oxycodone HCl (Roxicodone Intensol Liq) 5 mg Q4H PRN PO pain 4-6; Start at 11:15; Stop 02/19/17 at 07:46; Status DC Pantoprazole Sodium (Protonix Inj) 40 mg Q24H IV PUSH Last administered on 02/18 12:11; Start 02/17/17 at 12:00; Stop 02/19/17 at 07:23; Status DC Phenobarbital Sodium (Luminal Inj) 65 mg BID IV Last administered on 03/16/17 09:20; Start 02/17/17 at 12:00; Stop 03/16/17 at 20:02; Status DC Propranolol HCl (Inderal) 10 mg Q8HR PO Last administered on 02/17/17 15:58; Start 02/17/17 at 14:00; Stop 02/17/17 at 20:20; Status DC Senna/Docusate Sodium 1 tab 1 tab BID PO Last administered on 03/30/17 09:36; Start 02/17/17 at 21:00 Vancomycin HCl 1500 mg/Sodium Chloride 515 ml @ 257.5 mls/ hr Q12H IV ; Start 02/17/17 at 11:30; Status UNV Pharmacy Profile Note 0 ml @ 0 mls/hr UNSCH OTHER ; Start 02/17/17 at 11:30; Stop 02/19/17 at 23:59; Status DC Vancomycin HCl/ Sodium Chloride (Vancomycin Inj/ NS 250 ml Inj) 257.5 ml @ 250 mls/hr Q8H IV Last administered on 02/19/17 21:37; Start 02/17/17 at 13:00; Stop 02/19/17 at 23:59; Status DC Miscellaneous Information SPECIFIC LAB TO BE DRAWN:VANCO TROUGH DATE TO BE DR... ONCE ONCE XX Last administered on 02/18/17 12:11; Start 02/18/17 at 12: 45; Stop 02/18/17 at 12:46; Status DC Sodium Chloride (NS 1000 ml Inj) 1,000 ml @ 84 mls/hr [id number] IV Last administered on 02/19/17 00:01; Start 02/17/17 at 13:00; Stop 02/19/17 at 07:13 ; Status DC Enoxaparin Sodium (Lovenox Inj) 40 mg Q24H SQ Last administered on 03/13/17 22 :00; Start 02/17/17 at 20:00; Stop 03/14/17 at 16:38; Status DC Propranolol HCl (Inderal) 20 mg Q8HR PO Last administered on 02/19/17 14:00; Start 02/17/17 at 22:00; Stop 02/19/17 at 16:28; Status DC Lactulose (Lactulose Liq) 30 ml DAILY PRN PO if no bm by 1200; Start 02/19/17 at 07:30 Lansoprazole (Prevacid Odt) 30 mg DAILY NG Last administered on 03/30/17 09:36 ; Start 02/19/17 at 09:00 Oxycodone HCl (Roxicodone) 5 mg Q4H PRN PEG PAIN 4-6 Last administered on 21:39; Start 02/19/17 at 08:00 Propranolol HCl 20 mg 20 mg Q8HR PO Last administered on 02/26/17 05:47; Start 02/19/17 at 22:00; Stop 02/26/17 at 10:11; Status DC Ceftriaxone Sodium/Sodium Chloride (Rocephin Inj/NS Inj) 100 ml @ 200 mls/hr Q12H IV Last administered on 02/26/17 02:27; Start 02/22/17 at 14:00; Stop at 10:14; Status DC Artificial Tears (Tears Naturale Opth Soln) 1 drop Q6HR EACH EYE Last administered on 03/30/17 02:52; Start 02/22/17 at 19:00 Lacosamide 50 mg 50 mg BID G-TUBE Last administered on 03/30/17 09:36; Start at 09:00 Levetriacetam (Keppra 1000 Mg Inj) 100 ml @ 100 mls/hr NOW ONCE IV Last administered on 02/26/17 09:00; Start 02/26/17 at 09:00; Stop 02/26/17 at 09:59; Status DC Levetriacetam (Keppra) 250 mg BID PO Last administered on 03/02/17 09:48; Start 02/26/17 at 09:00; Stop 03/02/17 at 21:42; Status DC Levetriacetam (Keppra) 500 mg BID PO Last administered on 03/02/17 09:48; Start 02/26/17 at 09:00; Stop 03/02/17 at 21:42; Status DC Midodrine (Proamatine) 5 mg TID PO Last administered on 02/27/17 13:04; Start 02/26/17 at 13:00; Stop 02/27/17 at 19:21; Status DC Propranolol HCl (Inderal) 10 mg Q8HR PO Last administered on 03/01/17 21:15; Start 02/26/17 at 14:00; Stop 03/01/17 at 23:31; Status DC Midodrine (Proamatine) 5 mg BID PO Last administered on 4/10/17at 20:37; Start 02/27/17 at 21:00; Stop 03/02/17 at 21:50; Status DC Metoprolol Tartrate (Lopressor) 12.5 mg Q12HR PO Last administered on 08:30; Start 03/02/17 at 09:00; Stop 03/03/17 at 14:02; Status DC Sodium Chloride ([place]) 1 spray Q4H PRN NASAL NASAL CONGESTION; Start 03/01/17 at 23:45; Status Cancel Miscellaneous (Pill Splitter) 1 ea UNSCH PRN OTHER SEE LABEL COMMENTS; Start at 23:45 Levetriacetam (Keppra Liq) 750 mg BID PEG Last administered on 03/03/17 10:12 ; Start 03/02/17 at 21:45; Stop 03/03/17 at 16:18; Status DC Metoprolol Tartrate (Lopressor) 25 mg Q12HR PO Last administered on 03/06/17 10:10; Start 03/03/17 at 21:00; Stop 03/06/17 at 13:08; Status DC Metoprolol Tartrate (Lopressor) 12.5 mg ONCE ONCE PO Last administered on 03/03 15:25; Start 03/03/17 at 14:30; Stop 03/03/17 at 14:31; Status DC Levetriacetam 1000 mg 1,000 mg Q12HR NG Last administered on 03/07/17 09:22; Start 03/03/17 at 21:00; Stop 03/07/17 at 13:35; Status DC Levetriacetam (Keppra 1000 Mg Inj) 100 ml @ 400 mls/hr BOLUS ONCE IV Last administered on 03/03/17 16:57; Start 03/03/17 at 17:00; Stop 03/03/17 at 17:14 ; Status DC Thrombin (Thrombin Top Soln) 10,000 units STK-MED ONCE .ROUTE Last administered on 03/05/17 15:15; Start 03/05/17 at 14:04; Stop 03/05/17 at 14:05 ; Status DC Gelatin (Gelfoam 100 Top) 1 foam STK-MED ONCE .ROUTE Last administered on 15:15; Start 03/05/17 at 14:04; Stop 03/05/17 at 14:05; Status DC Gentamicin Sulfate (Gentamicin Inj) 240 mg STK-MED ONCE .ROUTE Last administered on 03/05/17 15:15; Start 03/05/17 at 14:04; Stop 03/05/17 at 14:05 ; Status DC Lidocaine/ Epinephrine (Xylocaine-Epi 1%-1:100,000 Inj) 40 ml STK-MED ONCE .ROUTE Last administered on 03/05/17 15:15; Start 03/05/17 at 14:05; Stop at 14:06; Status DC Vancomycin HCl (Vancomycin Inj) 1,000 mg STK-MED ONCE .ROUTE Last administered on 03/05/17 15:00; Start 03/05/17 at 14:58; Stop 03/05/17 at 14:59; Status DC Cefazolin Sodium (Ancef Inj) 1,000 mg STK-MED ONCE IV Last administered on 03/05 14:56; Start 03/05/17 at 14:56; Stop 03/05/17 at 15:48; Status DC Fentanyl Citrate (fentaNYL INJ) 250 mcg STK-MED ONCE .ROUTE ; Start 03/05/17 at 18:08; Stop 03/05/17 at 18:09; Status DC IV Flush (NS Flush) 2 ml UNSCH PRN IVF FLUSH AFTER USING IV ACCESS; Start 03/05 at 18:00 IV Flush 2 ml 2 ml BID IVF Last administered on 03/30/17 09:00; Start 03/05/17 at 21:00 Potassium Chloride/Dextrose/ Sod Cl (D5-1/2 NS + KCl 20 Meq Inj) 1,000 ml @ 100 mls/hr Q10H IV Last administered on 03/16/17 05:43; Start 03/05/17 at 17: 49; Stop 03/16/17 at 16:34; Status DC Morphine Sulfate 8 mg 8 mg STK-MED ONCE .ROUTE Last administered on 03/05/17 20:10; Start 03/05/17 at 20:09; Stop 03/05/17 at 20:10; Status DC Sodium Chloride 1,000 ml @ 30 mls/hr Q24H IV ; Start 03/06/17 at 09:15; Stop at 09:14; Status Cancel Cefazolin Sodium/ Dextrose (Ancef 2 Gm Premix) 50 ml @ 100 mls/hr [place] [employer] IV ; Start 03/06/17 at 09:15; Stop 03/09/17 at 09:14; Status Cancel Sugammadex Sodium (Bridion Inj) 200 mg STK-MED ONCE IV PUSH ; Start 03/06/17 at 12:08; Stop 03/06/17 at 12:09; Status DC Metoprolol Tartrate 25 mg 25 mg Q8H PO Last administered on 03/29/17 09:19; Start 03/06/17 at 18:00; Stop 03/29/17 at 17:00; Status DC Fosphenytoin Sodium/Sodium Chloride (Cerebyx Inj/NS Inj) 60 ml @ 120 mls/hr NOW ONCE IV Last administered on 03/06/17 18:49; Start 03/06/17 at 18:00; Stop 03/06/17 at 18:29; Status DC Fosphenytoin Sodium (Cerebyx Inj) 150 mgpe Q8HR IV Last administered on 13:54; Start 03/06/17 at 22:00; Stop 03/16/17 at 20:02; Status DC Gadodiamide 9 ml 9 ml STK-MED ONCE IV Last administered on 03/06/17 21:12; Start 03/06/17 at 21:12; Stop 03/06/17 at 21:13; Status DC Fosphenytoin Sodium 1000 mgpe/ Sodium Chloride 70 ml @ 70 mls/hr ONCE ONCE IV Last administered on 03/08/17 11:56; Start 03/08/17 at 11:00; Stop 03/08/17 at 11:59; Status DC Sodium Chloride 250 ml @ 0 mls/hr ONCE ONCE IV Last administered on 03/08/17 14:15; Start 03/08/17 at 14:15; Stop 03/08/17 at 14:20; Status DC Sodium Chloride (NS 250 ml Inj) 250 ml @ 0 mls/hr NOW ONCE IV Last administered on 03/08/17 18:30; Start 03/08/17 at 18:30; Stop 03/08/17 at 18:31 ; Status DC Albuterol/ Ipratropium (Duoneb Neb) 1 ampule Q4HR NEB NEB Last administered on 03/30/17 09:25; Start 03/11/17 at 20:00 Phenytoin Sodium (Dilantin Inj) 250 mg ONCE ONCE IV Last administered on 15:39; Start 03/13/17 at 16:00; Stop 03/13/17 at 16:01; Status DC Enoxaparin Sodium (Lovenox Inj) 24 mg Q12H SQ ; Start 03/14/17 at 16:45; Stop at 16:45; Status DC Enoxaparin Sodium (Lovenox Inj) 50 mg Q12H SQ Last administered on 03/29/17 18: 32; Start 03/14/17 at 18:00 Phenobarbital (PHENobarbital LIQ) 60 mg Q12HR PEG Last administered on 09:35; Start 03/16/17 at 21:00 Phenytoin (Dilantin Liq) 150 mg Q8HR PEG Last administered on 03/29/17 22:03; Start 03/16/17 at 22:00 Ondansetron HCl (Zofran Odt) 4 mg Q6H PRN PO NAUSEA; Start 03/16/17 at 21:00 Propofol (Diprivan 200 Mg/20 ml Inj) 200 mg STK-MED ONCE IV ; Start 03/05/17 at 13:21; Stop 03/18/17 at 13:23; Status DC Ephedrine Sulfate (ePHEDrine/NS 25 MG/5 ML SYR) 25 mg STK-MED ONCE IV ; Start at 13:21; Stop 03/18/17 at 13:23; Status DC Neostigmine Methylsulfate (Prostigmin Inj) 3 mg STK-MED ONCE IV ; Start at 13:21; Stop 03/18/17 at 13:23; Status DC Phenylephrine HCl (Neosynephrine/ NS 1000 Mcg/10ml Syr) 1,000 mcg STK-MED ONCE IV ; Start 03/05/17 at 13:21; Stop 03/18/17 at 13:23; Status DC Ondansetron HCl 4 mg 4 mg STK-MED ONCE IV PUSH ; Start 03/05/17 at 13:21; Stop 03/18/17 at 13:23; Status DC Lactated Ringer's (Lr 1000 ml Inj) 1,000 ml @ As Directed STK-MED ONCE IV ; Start 03/05/17 at 13:21; Stop 03/18/17 at 13:23; Status DC Bisacodyl (Dulcolax Supp) 10 mg DAILY PRN RECTAL CONSTIPATION; Start 03/28/17 at 10:30 Metoprolol Tartrate (Lopressor) 37.5 mg Q8H PO Last administered on 03/30/17t 09 :36; Start 03/29/17 at 18:00 Side: Left A/P Problem List: (1) Breakthrough seizure ICD Code: G40.919 Status: Chronic (2) Seizure disorder ICD Code: G40.909 Status: Acute (3) Major neurocognitive disorder as late effect of traumatic brain injury without behavioral disturbance ICD Code: S06.9X9S Status: Acute (4) Closed head injury ICD Code: S09.90XA Status: Acute (5) Subdural hematoma ICD Code: I62.00 Status: Acute (6) Pelvic fracture ICD Code: S32.9XXA Status: Acute (7) Kidney contusion ICD Code: S37.019A Status: Acute (8) Liver laceration ICD Code: S36.113A Status: Acute (9) Trauma ICD Code: T14.90 Status: Acute (10) Sinus tachycardia ICD Code: R00.0 Status: Acute (11) 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 Management per neurosurgery Will need terminal operations supervisor care Unlikely to be functional again dilantin and phenobarbital levels are within range. On bromocriptine. Seizure, breakthrough: Continue Vimpat 50mg BID and Dilantin 150mg Q8H as well as Phenobarbital 65mg BID Neurology ff - Dr. Newell ff. Chronic respiratory failure tracheostomy in place Follow oxygen saturations Pulmonary toilet Pulmonology following Levsin for secretions Follow cultures 03/19 d/w RT- trial of trach capping- LUE/RUE DVT: Lovenox 50mg SQ BID for now Treatment planned for 3 months right now Multiple pelvic fractures. Transverse process lumbar fractures Continue physical therapy Continue occupational therapy Continue speech therapy Sinus tachycardia: Secondary to traumatic brain injury. Continue metoprolol 25 mg TID. Continue monitor heart rate. Resolved MRSA pneumonia: completed vancomycin on 02/18. . GI prophylaxis protection with Prevacid. continue tube feedings at 60 cc/hr DVT prevention Lovenox Discharge Planning pending acceptance to [facility]. Problem Qualifiers (1) Deep venous thrombosis of upper extremity: Qualified Code: I82.623 - Acute deep vein thrombosis (DVT) of both upper extremities, unspecified vein Rhonda Sharma MD March 30, 2017 11:14
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
--- NOTE | 2017-03-30 12:25 | HHI.PR ---
Subjective Remarks Awake and stable moves right arm and leg. On O2 2 l. Responds sometimes to commands. Objective Vital Signs Date Time Temp Pulse Resp B/P Pulse Ox O2 Delivery O2 Flow Rate FiO2 03/30/17 12:12 100 Nasal Cannula 2.00 03/30/17 10:30 99.0 111 22 124/74 97 03/30/17 09:29 96 T-piece 5.00 28 03/30/17 09:29 96 T-piece 5.00 28 03/30/17 07:55 98.9 119 22 142/92 99 03/30/17 06:36 98.7 112 18 136/85 98 03/30/17 00:00 97.8 114 16 118/69 98 03/29/17 20:00 99.1 118 16 139/88 100 03/29/17 19:55 100 Nasal Cannula 2.00 03/29/17 19:55 100 Nasal Cannula 2.00 03/29/17 16:00 98.2 117 16 122/78 100 I/O 03/29/17 03/29/17 03/29/17 03/30/17 03/30/17 03/30/17 07:00 15:00 23:00 07:00 15:00 23:00 Intake Total 768 ml 801 ml 457 ml Balance 768 ml 801 ml 457 ml Tube Feeding 468 ml 801 ml 457 ml Other 300 ml # Voids 3 1 1 1 # Bowel Movements 0 1 0 Result Diagram: 03/26/17 0657 Procedures Replacement craniotomy bone flap 03/06/17 Side: Left Objective Remarks PHYSICAL EXAMINATION GENERAL: Averagely built young white female with no acute distress. HEENT: Head normocephalic. eyes clear. No bruits, no venous distension. Trach site OK. CHEST: Equal movements with clear lungs. CARDIAC: Heart sounds are regular. No murmur. ABDOMEN: Soft and nontender.PEG +. Bowel sounds are active. EXTREMITIES: Weakness of the lower limbs and left side . She is awake and moves right arm to command SKIN:No Lesions. Assessment and Plan Assessment and Plan IMPRESSION 1. Respiratory failure with a history of MRSA pneumonia 2. Status post craniotomy for a subdural hematoma and traumatic brain injury 3. Right rib fractures with history of pneumothorax, resolved 4. Tachycardia Plan : 1. O2 2 L 2. Suction and lavage trach . 3. Nebs qid , albuterol prn. 4. Cap Trach up to 12 hrs. Then to Trach collar 28 % at HS 5. PT evaluation 6. Tube feeds as ordered. 7. Rehab Placement. Michela Mohr MD March 30, 2017 12:25
--- NOTE | 2017-03-30 12:37 | HHI.NSPN ---
([place]) Note Status Status: Progress Note ([place]) Interval History Interval History Ms. Laurent is a 22 y/o female with a history of TBI 03/05: To OR for: Replacement left craniotomy bone flap Left frontotemporoparietal duraplasty 03/06: POD # 1 replacement craniotomy bone flap 03/07: today mildly opening eyes, however not following commands 03/08: f/u CT Head completed, more awake today 03/09: Patient opens eyes spontaneously but not tracking 03/10: Patient opens eyes to noxious stimuli, Nursing reports she is more responsive to than staff 03/11: Patient transferred to regular med/surg floor 03/12: Eyes open, smiles, still tachycardiac 03/13: Patient drowsy today, minimally follows commands. 03/14/17: Heparin IV started for DVT. CT Head satisfactory 03/16: Patient awake, OT at bedside doing LUE exercises 03/17: Patient sleeping, not responding to verbal stimuli, no apparent distress. Samantha to craniotomy incision removed yesterday. 03/18: Patient awake, follows some commands. 03/19: Patient asleep but awakens to verbal stimuli, follows commands but not consistently. 03/20: Patient awakes, smiles when asked to, follows commands but not consistently, NAD. states she was tachycardiac in the 140s earlier and was given Roxicodone. 03/21: Patient awakes, follows commands but not consistently, no new issues 03/23: Patient is awake, follows some commands inconsistently. states she has been "acting funny" today. 03/25: Patient is asleep when seen. She turns to the sound of this practitioner's voice and flutters her eyelids. She did smile to command but did not follow any other commands. She was seen moving the right leg spontaneously. Her stated Therapy had just worked with her. 03/27: Patient asleep when initially seen this morning and did not respond to verbal stimuli. When seen this afternoon the patient did finally start to flutter her eyes and smile upon command after being coaxed. She was noted to spontaneously move the RUE & BLE. She did move the BLE to noxious stimuli applied to the LUE. It was difficult to tell if she did attempt to wiggle the toes to command because she would move her feet. 03/30: Patient asleep when seen. No response to verbal stimuli initially. Did not follow any commands. Did have facial grimace to noxious stimuli to BUE & RLE but withdrew to LLE. She did smile to verbal stimuli as this practitioner was finishing examining her. ([place]) Labs, Micro, & Vital Signs Constitutional Vital Signs Date Time Temp Pulse Resp B/P Pulse Ox O2 Delivery O2 Flow Rate FiO2 03/30/17 12:12 100 Nasal Cannula 2.00 03/30/17 10:30 99.0 111 22 124/74 97 03/30/17 09:29 96 T-piece 5.00 28 03/30/17 09:29 96 T-piece 5.00 28 03/30/17 07:55 98.9 119 22 142/92 99 03/30/17 06:36 98.7 112 18 136/85 98 03/30/17 00:00 97.8 114 16 118/69 98 03/29/17 20:00 99.1 118 16 139/88 100 03/29/17 19:55 100 Nasal Cannula 2.00 03/29/17 19:55 100 Nasal Cannula 2.00 03/29/17 16:00 98.2 117 16 122/78 100 03/30/17 06:59 Intake Total 2026 ml Balance 2026 ml ([place]) Review of Systems/Exam ROS Unable to obtain ROS due to patient's mental status. Exam HEENT: Surgical incision well approximated w/o any evident drainage, erythema or streaking. PERRRL. Resp: Essentially clear bilaterally, equal excursion, non-laboured, trach capped , on NC. CV: RRR w/o M/G/R but fast, cap refill < 2 sec, radial & pedal pulses 2+ bilaterally, no pedal edema. GI: Abdomen soft & nontender, bowel sounds present. Enteral feeds by PEG. Neuro: Asleep when seen. No response to verbal stimuli initially. Did not follow any commands. Did have facial grimace to noxious stimuli to BUE & RLE but withdrew to LLE. She did smile to verbal stimuli as this practitioner was finishing examining her. ([place]) Medications Current Medications Current Medications Medications (Trade) Dose Ordered Sig/Raji Route Start Time Stop Time Status Last Admin (Tylenol) 650 mg Q4H PRN PO 02/17/17 00:30 03/29/17 13:55 (Milk Of Magnesia Liq) 30 ml Q12H PRN PO 02/17/17 00:30 (Narcan Inj) 0.4 mg UNSCH PRN IV 02/17/17 00:30 Miscellaneous Information Patient in critical care unit? Ass... Q361D XX 02/17/17 04:15 02/17/17 04:15 (Parlodel) 2.5 mg Q12HR PO 02/17/17 21:00 03/30/17 09:36 (Pepcid) 20 mg HS PO 02/17/17 21:00 03/29/17 22:03 (Levsin) 0.125 mg Q4H PRN PO 02/17/17 11:15 (Motrin Liq) 200 mg Q6H PRN PO 02/17/17 11:15 03/26/17 18:04 (Malu-Colace) 1 tab BID PO 02/17/17 21:00 03/30/17 09:36 (Lactulose Liq) 30 ml DAILY PRN PO 02/19/17 07:30 (Prevacid Odt) 30 mg DAILY NG 02/19/17 09:00 03/30/17 09:36 (Roxicodone) 5 mg Q4H PRN PEG 02/19/17 08:00 03/24/17 21:39 (Tears Naturale Opth Soln) 1 drop Q6HR EACH EYE 02/22/17 19:00 03/30/17 12:00 (Vimpat) 50 mg BID G-TUBE 02/25/17 09:00 03/30/17 09:36 (Pill Splitter) 1 ea UNSCH PRN OTHER 03/01/17 23:45 (NS Flush) 2 ml UNSCH PRN IVF 03/05/17 18:00 (NS Flush) 2 ml BID IVF 03/05/17 21:00 03/30/17 09:00 (Lovenox Inj) 50 mg Q12H SQ 03/14/17 18:00 03/29/17 18:32 (PHENobarbital LIQ) 60 mg Q12HR PEG 03/16/17 21:00 03/30/17 09:35 (Dilantin Liq) 150 mg Q8HR PEG 03/16/17 22:00 03/29/17 22:03 (Zofran Odt) 4 mg Q6H PRN PO 03/16/17 21:00 (Dulcolax Supp) 10 mg DAILY PRN RECTAL 03/28/17 10:30 (Lopressor) 37.5 mg Q8H PO 03/29/17 18:00 03/30/17 09:36 ([place]) Medical Decision Making MDM Remarks 22 y/o female with a history of TBI POD # 25 s/p craniotomy for bone flap replacement Neurological function appears stable, but has had inconsistent responses Upper extremity venous thrombosis ([place]) Plan Plan Remarks Continue neuro checks Continue anticonvulsants per Neurology Continue heparin drip for upper extremity DVT Continue mechanical DVT prophylaxis Primary management & HR mgmt per Trauma Awaiting acceptance for rehab ([place]) Attending Statement I have personally seen and examined the patient on the date of this note. Pertinent documentation and study results have been reviewed by the undersigned. I have personally developed the treatment plan and performed medical decision making. Agree with findings, exam, and treatment plan as noted above. No overall change in neurologic exam over the past week. No family in the room this morning for discussion. Discharge planning. Stable for discharge to inpatient rehabilitation from neurosurgery standpoint. (Victor Hugo Gibson MD) [place] March 30, 2017 12:37 Victor Hugo Gibson MD March 30, 2017 19:32
[2017-03-30] MEDS: PHENYTOIN SUSP 100 MG/4 ML CUP PEG SCH ×3 (13:25→23:36)
[2017-03-30] MEDS: ENOXAPARIN SODIUM 60 MG/0.6 ML SYRINGE SQ SCH (17:54)
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
[2017-03-30] MEDS: FAMOTIDINE 20 MG TAB PO SCH (22:25)
[2017-03-30] MEDS: ACETAMINOPHEN 325 MG TAB PO PRN (22:32)
[2017-03-31] VITALS (11 sets, daily range): BP systolic 131–154; BP diastolic 69–97; PULSE 100–124; RESP 18–21; TEMP 97.8–100; O2SAT 96–100
[2017-03-31] MEDS: RESP: ALBUTEROL 2.5 MG/IPRATROPIUM 0.5 MG NEB (SCH) NEB ×6 (00:31→22:09)
[2017-03-31] MEDS: METOPROLOL TARTRATE 25 MG TAB PO SCH ×3 (02:53→18:00)
[2017-03-31] MEDS: ARTIFICIAL TEARS OPTH SOLN 15 ML BTL EACH EYE SCH ×5 (06:00→23:42)
[2017-03-31] MEDS: ENOXAPARIN SODIUM 60 MG/0.6 ML SYRINGE SQ SCH ×2 (06:45→18:00)
[2017-03-31] MEDS: PHENYTOIN SUSP 100 MG/4 ML CUP PEG SCH ×3 (06:45→21:41)
[2017-03-31] MEDS: PHENobarbital ELIX 20 MG/5 ML CUP PEG SCH ×2 (08:59→21:42)
[2017-03-31] MEDS: LACOSAMIDE 50 MG TAB G-TUBE SCH ×2 (08:59→21:40)
[2017-03-31] MEDS: BROMOCRIPTINE MESYLATE 2.5 MG TAB PO SCH ×2 (09:00→21:40)
[2017-03-31] MEDS: LANSOPRAZOLE SOLUTAB 30 MG TAB NG SCH (09:00)
[2017-03-31] MEDS: DOCUSATE SODIUM 50 MG/SENNA 8.6 MG TAB PO SCH ×2 (09:00→21:41)
[2017-03-31] MEDS: SODIUM CHLORIDE 0.9% FLUSH 5 ML FLUSH IVF SCH ×2 (09:00→21:00)
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
--- NOTE | 2017-03-31 16:15 | HHI.PR ---
Subjective Remarks Patient's nurse, , and father are at the bedside. Patient's has been concerned and stated that patient has been more fatigued. He stated that he thinks because she's not getting enough nutrition. He stated that tube feeds have been held due to the dilantin. Patient's is also asking to speak with Dr. Nayan Prado in regards to her secretions since this is preventing transferred to [place]. Otherwise he stated that he wants to speak to Dr. Newell in regards to the hydrocephalus to see if a PROCESS LINE OPERATOR shunt as needed. Patient did not follow any commands with me. But she did respond to her in which she open her eyes and look to her when he asked her to. He asked her to lift her arm but she was not able to do that. Objective Vitals Vital Signs Date Time Temp Pulse Resp B/P Pulse Ox O2 Delivery O2 Flow Rate FiO2 03/31/17 12:00 99.3 107 19 135/97 99 03/31/17 11:38 Nasal Cannula 2.00 03/31/17 09:29 100 T-piece 5.00 28 03/31/17 08:00 97.8 112 19 142/96 100 03/31/17 06:02 18 03/31/17 05:16 100 T-piece 28 03/31/17 04:00 100.0 108 20 154/85 100 03/31/17 02:10 100 03/31/17 02:10 98 Nasal Cannula 03/31/17 00:40 100 T-piece 28 03/31/17 00:00 99.2 122 21 133/72 100 03/30/17 21:39 100 T-piece 6.00 28 03/30/17 21:39 100 T-piece 6.00 28 03/30/17 19:58 125 I/O 03/30/17 03/30/17 03/30/17 03/31/17 03/31/17 03/31/17 07:00 15:00 23:00 07:00 15:00 23:00 Intake Total 457 ml 639 ml Balance 457 ml 639 ml Tube Feeding 457 ml 639 ml # Voids 1 9 0 # Bowel Movements 0 3 0 Objective Remarks GENERAL: in NAD trach is in place. CARDIOVASCULAR: Regular rate and rhythm without murmurs, gallops, or rubs. RESPIRATORY: Breath sounds equal bilaterally, but transmitted upper resp sounds. No accessory muscle use. GASTROINTESTINAL: Abdomen soft, non-tender, nondistended. PEG is in place. MUSCULOSKELETAL: No cyanosis, or edema. BACK: Nontender without obvious deformity. No CVA tenderness. NEURO: Patient does not follow any commands but did open her eyes when her ask to. per this fluctuates. Procedures Replacement craniotomy bone flap 03/06/17 Medications and IVs Current Medications Sodium Chloride (NS Flush) 2 ml UNSCH PRN IV FLUSH FLUSH AFTER USING IV ACCESS ; Start 02/17/17 at 00:30; Stop 03/05/17 at 18:35; Status DC Sodium Chloride (NS Flush) 2 ml BID IV FLUSH Last administered on 03/05/17 08: 32; Start 02/17/17 at 09:00; Stop 03/05/17 at 18:35; Status DC Acetaminophen (Tylenol) 650 mg Q4H PRN PO TEMP > 100.4 Last administered on 03/30 22:32; Start 02/17/17 at 00:30 Ondansetron HCl (Zofran Inj) 4 mg Q6H PRN IVP NAUSEA OR VOMITING; Start at 00:30; Stop 03/16/17 at 20:08; Status DC Bisacodyl (Dulcolax Supp) 10 mg DAILY PRN GA SEE LABEL COMMENTS; Start at 00:30; Stop 02/17/17 at 11:25; Status DC Magnesium Hydroxide (Milk Of Magnesia Liq) 30 ml Q12H PRN PO CONSTIPATION; Start 02/17/17 at 00:30 Naloxone HCl (Narcan Inj) 0.4 mg UNSCH PRN IV SEE LABEL COMMENTS; Start at 00:30 Miscellaneous Information Patient in critical care unit? Ass... Q361D XX Last administered on 02/17/17 04:15; Start 02/17/17 at 04:15 Chlorhexidine Gluconate (Chlorhexidine 2% Cloth) 3 pack DAILY@04 TOPICAL Last administered on 02/22/17 04:00; Start 02/18/17 at 04:00; Stop 02/22/17 at 04:01; Status DC Chlorhexidine Gluconate (Chlorhexidine 2% Cloth) 3 pack UNSCH PRN TOPICAL HYGIENIC CARE; Start 02/17/17 at 04:15; Stop 02/22/17 at 04:04; Status DC Albuterol/ Ipratropium (Duoneb Neb) 1 ampule Q4HR NEB PRN NEB SHORTNESS OF BREATH Last administered on 03/09/17 10:27; Start 02/17/17 at 08:30; Stop 03/11 at 18:06; Status DC Bisacodyl (Dulcolax Supp) 10 mg DAILY RECTAL Last administered on 03/28/17 08: 55; Start 02/18/17 at 09:00; Stop 03/28/17 at 10:24; Status DC Bromocriptine Mesylate (Parlodel) 2.5 mg Q12HR PO Last administered on 09:00; Start 02/17/17 at 21:00 Famotidine (Pepcid) 20 mg HS PO Last administered on 03/30/17 22:25; Start at 21:00 Hyoscyamine Sulfate (Levsin) 0.125 mg Q4H PRN PO secretions; Start 02/17/17 at 11:15 Ibuprofen (Motrin Liq) 200 mg Q6H PRN PO temp>101 Last administered on 18:04; Start 02/17/17 at 11:15 Lactulose (Lactulose Liq) 30 ml DAILY PO Last administered on 02/18/17 09:05; Start 02/18/17 at 09:00; Stop 02/19/17 at 07:23; Status DC Levetriacetam (Keppra) 500 mg BID PO Last administered on 02/25/17 21:19; Start 02/17/17 at 11:30; Stop 02/26/17 at 08:46; Status DC Midodrine (Proamatine) 10 mg TID PO Last administered on 02/25/17 19:00; Start 02/17/17 at 13:00; Stop 02/26/17 at 10:10; Status DC Oxycodone HCl (Roxicodone Intensol Liq) 5 mg Q4H PRN PO pain 4-6; Start at 11:15; Stop 02/19/17 at 07:46; Status DC Pantoprazole Sodium (Protonix Inj) 40 mg Q24H IV PUSH Last administered on 02/18 12:11; Start 02/17/17 at 12:00; Stop 02/19/17 at 07:23; Status DC Phenobarbital Sodium (Luminal Inj) 65 mg BID IV Last administered on 03/16/17 09:20; Start 02/17/17 at 12:00; Stop 03/16/17 at 20:02; Status DC Propranolol HCl (Inderal) 10 mg Q8HR PO Last administered on 02/17/17 15:58; Start 02/17/17 at 14:00; Stop 02/17/17 at 20:20; Status DC Senna/Docusate Sodium 1 tab 1 tab BID PO Last administered on 03/31/17 09:00; Start 02/17/17 at 21:00 Vancomycin HCl 1500 mg/Sodium Chloride 515 ml @ 257.5 mls/ hr Q12H IV ; Start 02/17/17 at 11:30; Status UNV Pharmacy Profile Note 0 ml @ 0 mls/hr UNSCH OTHER ; Start 02/17/17 at 11:30; Stop 02/19/17 at 23:59; Status DC Vancomycin HCl/ Sodium Chloride (Vancomycin Inj/ NS 250 ml Inj) 257.5 ml @ 250 mls/hr Q8H IV Last administered on 02/19/17 21:37; Start 02/17/17 at 13:00; Stop 02/19/17 at 23:59; Status DC Miscellaneous Information SPECIFIC LAB TO BE DRAWN:VANCO TROUGH DATE TO BE DR... ONCE ONCE XX Last administered on 02/18/17 12:11; Start 02/18/17 at 12: 45; Stop 02/18/17 at 12:46; Status DC Sodium Chloride (NS 1000 ml Inj) 1,000 ml @ 84 mls/hr [id number] IV Last administered on 02/19/17 00:01; Start 02/17/17 at 13:00; Stop 02/19/17 at 07:13 ; Status DC Enoxaparin Sodium (Lovenox Inj) 40 mg Q24H SQ Last administered on 03/13/17 22 :00; Start 02/17/17 at 20:00; Stop 03/14/17 at 16:38; Status DC Propranolol HCl (Inderal) 20 mg Q8HR PO Last administered on 02/19/17 14:00; Start 02/17/17 at 22:00; Stop 02/19/17 at 16:28; Status DC Lactulose (Lactulose Liq) 30 ml DAILY PRN PO if no bm by 1200; Start 02/19/17 at 07:30 Lansoprazole (Prevacid Odt) 30 mg DAILY NG Last administered on 03/31/17 09:00 ; Start 02/19/17 at 09:00 Oxycodone HCl (Roxicodone) 5 mg Q4H PRN PEG PAIN 4-6 Last administered on 05:02; Start 02/19/17 at 08:00 Propranolol HCl 20 mg 20 mg Q8HR PO Last administered on 02/26/17 05:47; Start 02/19/17 at 22:00; Stop 02/26/17 at 10:11; Status DC Ceftriaxone Sodium/Sodium Chloride (Rocephin Inj/NS Inj) 100 ml @ 200 mls/hr Q12H IV Last administered on 02/26/17 02:27; Start 02/22/17 at 14:00; Stop at 10:14; Status DC Artificial Tears (Tears Naturale Opth Soln) 1 drop Q6HR EACH EYE Last administered on 03/31/17 12:00; Start 02/22/17 at 19:00 Lacosamide 50 mg 50 mg BID G-TUBE Last administered on 03/31/17 08:59; Start at 09:00 Levetriacetam (Keppra 1000 Mg Inj) 100 ml @ 100 mls/hr NOW ONCE IV Last administered on 02/26/17 09:00; Start 02/26/17 at 09:00; Stop 02/26/17 at 09:59; Status DC Levetriacetam (Keppra) 250 mg BID PO Last administered on 03/02/17 09:48; Start 02/26/17 at 09:00; Stop 03/02/17 at 21:42; Status DC Levetriacetam (Keppra) 500 mg BID PO Last administered on 03/02/17 09:48; Start 02/26/17 at 09:00; Stop 03/02/17 at 21:42; Status DC Midodrine (Proamatine) 5 mg TID PO Last administered on 02/27/17 13:04; Start 02/26/17 at 13:00; Stop 02/27/17 at 19:21; Status DC Propranolol HCl (Inderal) 10 mg Q8HR PO Last administered on 03/01/17 21:15; Start 02/26/17 at 14:00; Stop 03/01/17 at 23:31; Status DC Midodrine (Proamatine) 5 mg BID PO Last administered on 03/02/17 20:37; Start 02/27/17 at 21:00; Stop 03/02/17 at 21:50; Status DC Metoprolol Tartrate (Lopressor) 12.5 mg Q12HR PO Last administered on 08:30; Start 03/02/17 at 09:00; Stop 03/03/17 at 14:02; Status DC Sodium Chloride (Hauula Mathieu [place]) 1 spray Q4H PRN NASAL NASAL CONGESTION; Start 03/01/17 at 23:45; Status Cancel Miscellaneous (Pill Splitter) 1 ea UNSCH PRN OTHER SEE LABEL COMMENTS; Start at 23:45 Levetriacetam (Keppra Liq) 750 mg BID PEG Last administered on 03/03/17 10:12 ; Start 03/02/17 at 21:45; Stop 03/03/17 at 16:18; Status DC Metoprolol Tartrate (Lopressor) 25 mg Q12HR PO Last administered on 03/06/17 10:10; Start 03/03/17 at 21:00; Stop 03/06/17 at 13:08; Status DC Metoprolol Tartrate (Lopressor) 12.5 mg ONCE ONCE PO Last administered on 03/03 15:25; Start 03/03/17 at 14:30; Stop 03/03/17 at 14:31; Status DC Levetriacetam 1000 mg 1,000 mg Q12HR NG Last administered on 03/07/17 09:22; Start 03/03/17 at 21:00; Stop 03/07/17 at 13:35; Status DC Levetriacetam (Keppra 1000 Mg Inj) 100 ml @ 400 mls/hr BOLUS ONCE IV Last administered on 03/03/17 16:57; Start 03/03/17 at 17:00; Stop 03/03/17 at 17:14 ; Status DC Thrombin (Thrombin Top Soln) 10,000 units STK-MED ONCE .ROUTE Last administered on 03/05/17 15:15; Start 03/05/17 at 14:04; Stop 03/05/17 at 14:05 ; Status DC Gelatin (Gelfoam 100 Top) 1 foam STK-MED ONCE .ROUTE Last administered on 15:15; Start 03/05/17 at 14:04; Stop 03/05/17 at 14:05; Status DC Gentamicin Sulfate (Gentamicin Inj) 240 mg STK-MED ONCE .ROUTE Last administered on 03/05/17 15:15; Start 03/05/17 at 14:04; Stop 03/05/17 at 14:05 ; Status DC Lidocaine/ Epinephrine (Xylocaine-Epi 1%-1:100,000 Inj) 40 ml STK-MED ONCE .ROUTE Last administered on 03/05/17 15:15; Start 03/05/17 at 14:05; Stop at 14:06; Status DC Vancomycin HCl (Vancomycin Inj) 1,000 mg STK-MED ONCE .ROUTE Last administered on 03/05/17 15:00; Start 03/05/17 at 14:58; Stop 03/05/17 at 14:59; Status DC Cefazolin Sodium (Ancef Inj) 1,000 mg STK-MED ONCE IV Last administered on 03/05 14:56; Start 03/05/17 at 14:56; Stop 03/05/17 at 15:48; Status DC Fentanyl Citrate (fentaNYL INJ) 250 mcg STK-MED ONCE .ROUTE ; Start 03/05/17 at 18:08; Stop 03/05/17 at 18:09; Status DC IV Flush (NS Flush) 2 ml UNSCH PRN IVF FLUSH AFTER USING IV ACCESS; Start 03/05 at 18:00 IV Flush 2 ml 2 ml BID IVF Last administered on 03/31/17 09:00; Start 03/05/17 at 21:00 Potassium Chloride/Dextrose/ Sod Cl (D5-1/2 NS + KCl 20 Meq Inj) 1,000 ml @ 100 mls/hr Q10H IV Last administered on 03/16/17 05:43; Start 03/05/17 at 17: 49; Stop 03/16/17 at 16:34; Status DC Morphine Sulfate 8 mg 8 mg STK-MED ONCE .ROUTE Last administered on 03/05/17 20:10; Start 03/05/17 at 20:09; Stop 03/05/17 at 20:10; Status DC Sodium Chloride 1,000 ml @ 30 mls/hr Q24H IV ; Start 03/06/17 at 09:15; Stop at 09:14; Status Cancel Cefazolin Sodium/ Dextrose (Ancef 2 Gm Premix) 50 ml @ 100 mls/hr VIDEO SPECIALIST IV ; Start 03/06/17 at 09:15; Stop 03/09/17 at 09:14; Status Cancel Sugammadex Sodium (Bridion Inj) 200 mg STK-MED ONCE IV PUSH ; Start 03/06/17 at 12:08; Stop 03/06/17 at 12:09; Status DC Metoprolol Tartrate 25 mg 25 mg Q8H PO Last administered on 03/29/17 09:19; Start 03/06/17 at 18:00; Stop 03/29/17 at 17:00; Status DC Fosphenytoin Sodium/Sodium Chloride (Cerebyx Inj/NS Inj) 60 ml @ 120 mls/hr NOW ONCE IV Last administered on 03/06/17 18:49; Start 03/06/17 at 18:00; Stop 03/06/17 at 18:29; Status DC Fosphenytoin Sodium (Cerebyx Inj) 150 mgpe Q8HR IV Last administered on 13:54; Start 03/06/17 at 22:00; Stop 03/16/17 at 20:02; Status DC Gadodiamide 9 ml 9 ml STK-MED ONCE IV Last administered on 03/06/17 21:12; Start 03/06/17 at 21:12; Stop 03/06/17 at 21:13; Status DC Fosphenytoin Sodium 1000 mgpe/ Sodium Chloride 70 ml @ 70 mls/hr ONCE ONCE IV Last administered on 03/08/17 11:56; Start 03/08/17 at 11:00; Stop 03/08/17 at 11:59; Status DC Sodium Chloride 250 ml @ 0 mls/hr ONCE ONCE IV Last administered on 03/08/17 14:15; Start 03/08/17 at 14:15; Stop 03/08/17 at 14:20; Status DC Sodium Chloride (NS 250 ml Inj) 250 ml @ 0 mls/hr NOW ONCE IV Last administered on 03/08/17 18:30; Start 03/08/17 at 18:30; Stop 03/08/17 at 18:31 ; Status DC Albuterol/ Ipratropium (Duoneb Neb) 1 ampule Q4HR NEB NEB Last administered on 03/31/17 11:53; Start 03/11/17 at 20:00 Phenytoin Sodium (Dilantin Inj) 250 mg ONCE ONCE IV Last administered on 15:39; Start 03/13/17 at 16:00; Stop 03/13/17 at 16:01; Status DC Enoxaparin Sodium (Lovenox Inj) 24 mg Q12H SQ ; Start 03/14/17 at 16:45; Stop at 16:45; Status DC Enoxaparin Sodium (Lovenox Inj) 50 mg Q12H SQ Last administered on 03/31/17 06: 45; Start 03/14/17 at 18:00 Phenobarbital (PHENobarbital LIQ) 60 mg Q12HR PEG Last administered on 08:59; Start 03/16/17 at 21:00 Phenytoin (Dilantin Liq) 150 mg Q8HR PEG Last administered on 03/31/17 14:56; Start 03/16/17 at 22:00 Ondansetron HCl (Zofran Odt) 4 mg Q6H PRN PO NAUSEA; Start 03/16/17 at 21:00 Propofol (Diprivan 200 Mg/20 ml Inj) 200 mg STK-MED ONCE IV ; Start 03/05/17 at 13:21; Stop 03/18/17 at 13:23; Status DC Ephedrine Sulfate (ePHEDrine/NS 25 MG/5 ML SYR) 25 mg STK-MED ONCE IV ; Start at 13:21; Stop 03/18/17 at 13:23; Status DC Neostigmine Methylsulfate (Prostigmin Inj) 3 mg STK-MED ONCE IV ; Start at 13:21; Stop 03/18/17 at 13:23; Status DC Phenylephrine HCl (Neosynephrine/ NS 1000 Mcg/10ml Syr) 1,000 mcg STK-MED ONCE IV ; Start 03/05/17 at 13:21; Stop 03/18/17 at 13:23; Status DC Ondansetron HCl 4 mg 4 mg STK-MED ONCE IV PUSH ; Start 03/05/17 at 13:21; Stop 03/18/17 at 13:23; Status DC Lactated Ringer's (Lr 1000 ml Inj) 1,000 ml @ As Directed STK-MED ONCE IV ; Start 03/05/17 at 13:21; Stop 03/18/17 at 13:23; Status DC Bisacodyl (Dulcolax Supp) 10 mg DAILY PRN RECTAL CONSTIPATION; Start 03/28/17 at 10:30 Metoprolol Tartrate (Lopressor) 37.5 mg Q8H PO Last administered on 03/31/17t 09 :00; Start 03/29/17 at 18:00 Side: Left A/P Problem List: (1) Breakthrough seizure ICD Code: G40.919 Status: Chronic (2) Seizure disorder ICD Code: G40.909 Status: Acute (3) Major neurocognitive disorder as late effect of traumatic brain injury without behavioral disturbance ICD Code: S06.9X9S Status: Acute (4) Closed head injury ICD Code: S09.90XA Status: Acute (5) Subdural hematoma ICD Code: I62.00 Status: Acute (6) Pelvic fracture ICD Code: S32.9XXA Status: Acute (7) Kidney contusion ICD Code: S37.019A Status: Acute (8) Liver laceration ICD Code: S36.113A Status: Acute (9) Trauma ICD Code: T14.90 Status: Acute (10) Sinus tachycardia ICD Code: R00.0 Status: Acute (11) 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 Management per neurosurgery Will need long-term care Unlikely to be functional again dilantin and phenobarbital levels are within range. On bromocriptine. Per neurosurgeon patient has hydrocephalus and recommending a PROCESS LINE OPERATOR shunt. At the moment family declined. They want to speak to Dr. Newell regards to this. Seizure, breakthrough: Continue Vimpat 50mg BID and Dilantin 150mg Q8H as well as Phenobarbital 65mg BID Neurology ff - Dr. Newell ff. Chronic respiratory failure tracheostomy in place Follow oxygen saturations Pulmonary toilet Pulmonology following Levsin for secretions Follow cultures 03/19 d/w RT- trial of trach capping- LUE/RUE DVT: Lovenox 50mg SQ BID for now Treatment planned for 3 months right now Multiple pelvic fractures. Transverse process lumbar fractures Continue physical therapy Continue occupational therapy Continue speech therapy Sinus tachycardia: Secondary to traumatic brain injury. Continue metoprolol 25 mg TID. Continue monitor heart rate. Resolved MRSA pneumonia: completed vancomycin on 02/18. . GI prophylaxis protection with Prevacid. Tfs being held due to Dilantin. Reconsult dietitian in regards to recommendations. Patient is currently on 60 cc/h with intermittently being held due to Dilantin. DVT prevention Lovenox Discharge Planning Patient unable to be transferred secondary to multiple suctioning. Problem Qualifiers (1) Deep venous thrombosis of upper extremity: Qualified Code: I82.623 - Acute deep vein thrombosis (DVT) of both upper extremities, unspecified vein Rhonda Sharma MD March 31, 2017 16:15
--- NOTE | 2017-03-31 17:43 | HHI.PR ---
Subjective Remarks Awake and stable moves right arm and leg. On O2 2 l. Does not need suctioning for upto 6 hrs. Objective Vital Signs Date Time Temp Pulse Resp B/P Pulse Ox O2 Delivery O2 Flow Rate FiO2 03/31/17 16:00 98.8 124 18 143/69 100 03/31/17 12:00 99.3 107 19 135/97 99 03/31/17 11:38 Nasal Cannula 2.00 03/31/17 09:29 100 T-piece 5.00 03/31/17 08:00 97.8 112 19 142/96 100 03/31/17 06:02 18 03/31/17 05:16 100 T-piece 28 03/31/17 04:00 100.0 108 20 154/85 100 03/31/17 02:10 100 03/31/17 02:10 98 Nasal Cannula 03/31/17 00:40 100 T-piece 28 03/31/17 00:00 99.2 122 21 133/72 100 03/30/17 21:39 100 T-piece 6.00 03/30/17 21:39 100 T-piece 6.00 03/30/17 19:58 125 I/O 03/30/17 03/30/17 03/30/17 03/31/17 03/31/17 03/31/17 07:00 15:00 23:00 07:00 15:00 23:00 Intake Total 457 ml 639 ml Balance 457 ml 639 ml Tube Feeding 457 ml 639 ml # Voids 1 9 0 3 # Bowel Movements 0 3 0 2 Procedures Replacement craniotomy bone flap 03/06/17 Side: Left Objective Remarks PHYSICAL EXAMINATION GENERAL: Averagely built young white female with no acute distress. HEENT: Head normocephalic. eyes clear. No bruits, no venous distension. Trach site OK. CHEST: Equal movements with clear lungs. CARDIAC: Heart sounds are regular. Tachycardic. No murmur. ABDOMEN: Soft and nontender.PEG +. Bowel sounds are active. EXTREMITIES: Weakness of the lower limbs and left side . She is awake and moves right arm . SKIN:No Lesions. Assessment and Plan Assessment and Plan IMPRESSION 1. Respiratory failure with a history of MRSA pneumonia 2. Status post craniotomy for a subdural hematoma and traumatic brain injury 3. Right rib fractures with history of pneumothorax, resolved 4. Tachycardia Plan : 1 wean O2 to RA 2. Suction trach prn . 3. Nebs qid , albuterol prn. 4. Cap Trach up to 16 hrs. Then to Trach collar 24 % at HS 5. PT evaluation 6. Tube feeds as ordered. 7. Rehab Placement anytime. 8. Discussed with family. Michela Mohr MD March 31, 2017 17:43
[2017-03-31] MEDS: FAMOTIDINE 20 MG TAB PO SCH (21:41)
[2017-04-01] VITALS (10 sets, daily range): BP systolic 109–152; BP diastolic 55–96; PULSE 98–129; RESP 18–20; TEMP 95.6–99.1; O2SAT 96–100
[2017-04-01] MEDS: METOPROLOL TARTRATE 25 MG TAB PO SCH ×3 (02:04→17:01)
[2017-04-01] MEDS: RESP: ALBUTEROL 2.5 MG/IPRATROPIUM 0.5 MG NEB (SCH) NEB ×6 (04:27→21:23)
[2017-04-01] MEDS: ENOXAPARIN SODIUM 60 MG/0.6 ML SYRINGE SQ SCH ×2 (05:43→17:01)
[2017-04-01] MEDS: PHENYTOIN SUSP 100 MG/4 ML CUP PEG SCH ×3 (05:43→21:48)
[2017-04-01] MEDS: ARTIFICIAL TEARS OPTH SOLN 15 ML BTL EACH EYE SCH ×3 (05:52→17:02)
[2017-04-01] MEDS: BROMOCRIPTINE MESYLATE 2.5 MG TAB PO SCH ×2 (09:00→21:47)
[2017-04-01] MEDS: SODIUM CHLORIDE 0.9% FLUSH 5 ML FLUSH IVF SCH ×2 (09:00→21:48)
[2017-04-01] MEDS: PHENobarbital ELIX 20 MG/5 ML CUP PEG SCH ×2 (09:05→21:48)
[2017-04-01] MEDS: LANSOPRAZOLE SOLUTAB 30 MG TAB NG SCH (09:05)
[2017-04-01] MEDS: DOCUSATE SODIUM 50 MG/SENNA 8.6 MG TAB PO SCH ×2 (09:05→21:57)
[2017-04-01] MEDS: LACOSAMIDE 50 MG TAB G-TUBE SCH ×2 (09:05→21:47)
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
--- NOTE | 2017-04-01 12:33 | HHI.NSPN ---
([place]) Note Status Status: Progress Note ([place]) Interval History Interval History Ms. Laurent is a 22 y/o female with a history of TBI 03/05: To OR for: Replacement left craniotomy bone flap Left frontotemporoparietal duraplasty 03/06: POD # 1 replacement craniotomy bone flap 03/07: today mildly opening eyes, however not following commands 03/08: f/u CT Head completed, more awake today 03/09: Patient opens eyes spontaneously but not tracking 03/10: Patient opens eyes to noxious stimuli, Nursing reports she is more responsive to than staff 03/11: Patient transferred to regular med/surg floor 03/12: Eyes open, smiles, still tachycardiac 03/13: Patient drowsy today, minimally follows commands. 03/14/17: Heparin IV started for DVT. CT Head satisfactory 03/16: Patient awake, OT at bedside doing LUE exercises 03/17: Patient sleeping, not responding to verbal stimuli, no apparent distress. Samantha to craniotomy incision removed yesterday. 03/18: Patient awake, follows some commands. 03/19: Patient asleep but awakens to verbal stimuli, follows commands but not consistently. 03/20: Patient awakes, smiles when asked to, follows commands but not consistently, NAD. states she was tachycardiac in the 140s earlier and was given Roxicodone. 03/21: Patient awakes, follows commands but not consistently, no new issues 03/23: Patient is awake, follows some commands inconsistently. states she has been "acting funny" today. 03/25: Patient is asleep when seen. She turns to the sound of this practitioner's voice and flutters her eyelids. She did smile to command but did not follow any other commands. She was seen moving the right leg spontaneously. Her stated Therapy had just worked with her. 03/27: Patient asleep when initially seen this morning and did not respond to verbal stimuli. When seen this afternoon the patient did finally start to flutter her eyes and smile upon command after being coaxed. She was noted to spontaneously move the RUE & BLE. She did move the BLE to noxious stimuli applied to the LUE. It was difficult to tell if she did attempt to wiggle the toes to command because she would move her feet. 03/30: Patient asleep when seen. No response to verbal stimuli initially. Did not follow any commands. Did have facial grimace to noxious stimuli to BUE & RLE but withdrew to LLE. She did smile to verbal stimuli as this practitioner was finishing examining her. 03/31: The patient was asleep but did response to verbal coaxing to smile and stick her tongue out. A CT brain yesterday was concerning for development of hydrocephalus. The known left frontal fluid collection was not evident. 04/01: The patient was asleep but responded to verbal to verbal stimuli. ([place]) Labs, Micro, & Vital Signs Constitutional Vital Signs Date Time Temp Pulse Resp B/P Pulse Ox O2 Delivery O2 Flow Rate FiO2 04/01/17 09:41 100 T-piece 6.00 28 04/01/17 09:41 100 T-piece 2.00 28 04/01/17 08:49 95.9 106 19 152/96 100 04/01/17 04:29 100 Nasal Cannula 28 04/01/17 04:00 99.1 98 18 113/55 97 04/01/17 04:00 99 Nasal Cannula 04/01/17 02:14 98 Nasal Cannula 04/01/17 01:54 18 04/01/17 00:00 97.8 129 20 96 04/01/17 00:00 97.8 129 20 144/83 96 03/31/17 22:15 96 T-piece 21 03/31/17 20:00 99.2 109 18 131/72 98 03/31/17 16:00 98.8 124 18 143/69 100 ([place]) Review of Systems/Exam ROS Unable to obtain ROS due to patient's mental status. Exam HEENT: Surgical incision well approximated w/o any evident drainage, erythema or streaking. PERRRL. Resp: Slightly coarse bilaterally but sounds referred from upper airway, equal excursion, non-laboured, on trach collar. CV: RRR w/o M/G/R but fast, cap refill < 2 sec, radial & pedal pulses 2+ bilaterally, no pedal edema. GI: Abdomen soft & nontender, bowel sounds present. Enteral feeds by PEG. Neuro: Asleep but awakes to verbal stimuli. She did smile and stick out her tongue with some coaxing. She did not move the RLE to noxious stimuli but did move it spontaneously. The LLE she did withdraw to noxious stimuli as well as spontaneously. She did move the RUE to noxious stimuli and spontaneously. She flexed the wrist of the LUE to noxious stimuli. ([place]) Medications Current Medications Current Medications Medications (Trade) Dose Ordered Sig/Raji Route Start Time Stop Time Status Last Admin (Tylenol) 650 mg Q4H PRN PO 02/17/17 00:30 03/30/17 22:32 (Milk Of Magnesia Liq) 30 ml Q12H PRN PO 02/17/17 00:30 (Narcan Inj) 0.4 mg UNSCH PRN IV 02/17/17 00:30 Miscellaneous Information Patient in critical care unit? Ass... [id number] XX 02/17/17 04:15 02/17/17 04:15 (Parlodel) 2.5 mg Q12HR PO 02/17/17 21:00 04/01/17 09:00 (Pepcid) 20 mg HS PO 02/17/17 21:00 03/31/17 21:41 (Levsin) 0.125 mg Q4H PRN PO 02/17/17 11:15 (Motrin Liq) 200 mg Q6H PRN PO 02/17/17 11:15 03/26/17 18:04 (Malu-Colace) 1 tab BID PO 02/17/17 21:00 04/01/17 09:05 (Lactulose Liq) 30 ml DAILY PRN PO 02/19/17 07:30 (Prevacid Odt) 30 mg DAILY NG 02/19/17 09:00 04/01/17 09:05 (Roxicodone) 5 mg Q4H PRN PEG 02/19/17 08:00 04/01/17 00:27 (Tears Naturale Opth Soln) 1 drop Q6HR EACH EYE 02/22/17 19:00 04/01/17 11:53 (Vimpat) 50 mg BID G-TUBE 02/25/17 09:00 04/01/17 09:05 (Pill Splitter) 1 ea UNSCH PRN OTHER 03/01/17 23:45 (NS Flush) 2 ml UNSCH PRN IVF 03/05/17 18:00 (NS Flush) 2 ml BID IVF 03/05/17 21:00 04/01/17 09:00 (Lovenox Inj) 50 mg Q12H SQ 03/14/17 18:00 04/01/17 05:43 (PHENobarbital LIQ) 60 mg Q12HR PEG 03/16/17 21:00 04/01/17 09:05 (Dilantin Liq) 150 mg Q8HR PEG 03/16/17 22:00 04/01/17 05:43 (Zofran Odt) 4 mg Q6H PRN PO 03/16/17 21:00 (Dulcolax Supp) 10 mg DAILY PRN RECTAL 03/28/17 10:30 (Lopressor) 37.5 mg Q8H PO 03/29/17 18:00 04/01/17 09:05 ([place]) Medical Decision Making MDM Remarks 22 y/o female with a history of TBI POD # 27 s/p craniotomy for bone flap replacement Neurological function appears stable, but has had inconsistent responses Upper extremity venous thrombosis Probable hydrocephalus developing vs brain atrophy on CT brain ( [place]) Plan Plan Remarks Continue neuro checks Continue anticonvulsants per Neurology Continue heparin drip for upper extremity DVT Continue mechanical DVT prophylaxis Primary management & HR mgmt per Trauma Per she has been accepted at [facility] for rehab but is waiting for Pulmonology clearance. ([place]) Attending Statement I have personally seen and examined the patient on the date of this note. Pertinent documentation and study results have been reviewed by the undersigned. I have personally developed the treatment plan and performed medical decision making. Agree with findings, exam, and treatment plan as noted above. Scalp wounds are healing well No overall change in neurologic function over the past week (Victor Hugo Gibson MD) [place] April 01, 2017 12:33 Victor Hugo Gibson MD April 03, 2017 19:44
--- NOTE | 2017-04-01 15:58 | HHI.PR ---
Subjective Remarks is at the bedside. He stated that patient still seems lethargic. Patient does not answer any my commands. Per she intermittently follows commands. Objective Vitals Vital Signs Date Time Temp Pulse Resp B/P Pulse Ox O2 Delivery O2 Flow Rate FiO2 04/01/17 12:56 98.6 103 19 109/70 100 04/01/17 09:41 100 T-piece 6.00 28 04/01/17 09:41 100 T-piece 2.00 28 04/01/17 08:49 95.9 106 19 152/96 100 04/01/17 04:29 100 Nasal Cannula 28 04/01/17 04:00 99.1 98 18 113/55 97 04/01/17 04:00 99 Nasal Cannula 04/01/17 02:14 98 Nasal Cannula 04/01/17 01:54 18 04/01/17 00:00 97.8 129 20 96 04/01/17 00:00 97.8 129 20 144/83 96 03/31/17 22:15 96 T-piece 21 03/31/17 20:00 99.2 109 18 131/72 98 03/31/17 16:00 98.8 124 18 143/69 100 I/O 03/31/17 03/31/17 03/31/17 04/01/17 04/01/17 04/01/17 07:00 15:00 23:00 07:00 15:00 23:00 Intake Total 590 ml Output Total 400 ml Balance 190 ml Tube Feeding 590 ml Output Urine Total 400 ml # Voids 0 3 4 2 # Bowel Movements 0 2 Objective Remarks GENERAL: in NAD trach is in place. CARDIOVASCULAR: Regular rate and rhythm without murmurs, gallops, or rubs. RESPIRATORY: Breath sounds equal bilaterally, but transmitted upper resp sounds. No accessory muscle use. GASTROINTESTINAL: Abdomen soft, non-tender, nondistended. PEG is in place. MUSCULOSKELETAL: No cyanosis, or edema. BACK: Nontender without obvious deformity. No CVA tenderness. NEURO: Patient does not follow any commands but did open her eyes when her ask to. per this fluctuates. Procedures Replacement craniotomy bone flap 03/06/17 Medications and IVs Current Medications Sodium Chloride (NS Flush) 2 ml UNSCH PRN IV FLUSH FLUSH AFTER USING IV ACCESS ; Start 02/17/17 at 00:30; Stop 03/05/17 at 18:35; Status DC Sodium Chloride (NS Flush) 2 ml BID IV FLUSH Last administered on 03/05/17 08: 32; Start 02/17/17 at 09:00; Stop 03/05/17 at 18:35; Status DC Acetaminophen (Tylenol) 650 mg Q4H PRN PO TEMP > 100.4 Last administered on 03/30 22:32; Start 02/17/17 at 00:30 Ondansetron HCl (Zofran Inj) 4 mg Q6H PRN IVP NAUSEA OR VOMITING; Start at 00:30; Stop 03/16/17 at 20:08; Status DC Bisacodyl (Dulcolax Supp) 10 mg DAILY PRN ID SEE LABEL COMMENTS; Start at 00:30; Stop 02/17/17 at 11:25; Status DC Magnesium Hydroxide (Milk Of Magnesia Liq) 30 ml Q12H PRN PO CONSTIPATION; Start 02/17/17 at 00:30 Naloxone HCl (Narcan Inj) 0.4 mg UNSCH PRN IV SEE LABEL COMMENTS; Start at 00:30 Miscellaneous Information Patient in critical care unit? Ass... [id number] XX Last administered on 02/17/17 04:15; Start 02/17/17 at 04:15 Chlorhexidine Gluconate (Chlorhexidine 2% Cloth) 3 pack DAILY@04 TOPICAL Last administered on 02/22/17 04:00; Start 02/18/17 at 04:00; Stop 02/22/17 at 04:01; Status DC Chlorhexidine Gluconate (Chlorhexidine 2% Cloth) 3 pack UNSCH PRN TOPICAL HYGIENIC CARE; Start 02/17/17 at 04:15; Stop 02/22/17 at 04:04; Status DC Albuterol/ Ipratropium (Duoneb Neb) 1 ampule Q4HR NEB PRN NEB SHORTNESS OF BREATH Last administered on 03/09/17 10:27; Start 02/17/17 at 08:30; Stop 03/11 at 18:06; Status DC Bisacodyl (Dulcolax Supp) 10 mg DAILY RECTAL Last administered on 03/28/17 08: 55; Start 02/18/17 at 09:00; Stop 03/28/17 at 10:24; Status DC Bromocriptine Mesylate (Parlodel) 2.5 mg Q12HR PO Last administered on 09:00; Start 02/17/17 at 21:00 Famotidine (Pepcid) 20 mg HS PO Last administered on 03/31/17 21:41; Start at 21:00 Hyoscyamine Sulfate (Levsin) 0.125 mg Q4H PRN PO secretions; Start 02/17/17 at 11:15 Ibuprofen (Motrin Liq) 200 mg Q6H PRN PO temp>101 Last administered on 18:04; Start 02/17/17 at 11:15 Lactulose (Lactulose Liq) 30 ml DAILY PO Last administered on 02/18/17 09:05; Start 02/18/17 at 09:00; Stop 02/19/17 at 07:23; Status DC Levetriacetam (Keppra) 500 mg BID PO Last administered on 02/25/17 21:19; Start 02/17/17 at 11:30; Stop 02/26/17 at 08:46; Status DC Midodrine (Proamatine) 10 mg TID PO Last administered on 02/25/17 19:00; Start 02/17/17 at 13:00; Stop 02/26/17 at 10:10; Status DC Oxycodone HCl (Roxicodone Intensol Liq) 5 mg Q4H PRN PO pain 4-6; Start at 11:15; Stop 02/19/17 at 07:46; Status DC Pantoprazole Sodium (Protonix Inj) 40 mg Q24H IV PUSH Last administered on 02/18 12:11; Start 02/17/17 at 12:00; Stop 02/19/17 at 07:23; Status DC Phenobarbital Sodium (Luminal Inj) 65 mg BID IV Last administered on 03/16/17 09:20; Start 02/17/17 at 12:00; Stop 03/16/17 at 20:02; Status DC Propranolol HCl (Inderal) 10 mg Q8HR PO Last administered on 02/17/17 15:58; Start 02/17/17 at 14:00; Stop 02/17/17 at 20:20; Status DC Senna/Docusate Sodium 1 tab 1 tab BID PO Last administered on 04/01/17 09:05; Start 02/17/17 at 21:00 Vancomycin HCl 1500 mg/Sodium Chloride 515 ml @ 257.5 mls/ hr Q12H IV ; Start 02/17/17 at 11:30; Status UNV Pharmacy Profile Note 0 ml @ 0 mls/hr UNSCH OTHER ; Start 02/17/17 at 11:30; Stop 02/19/17 at 23:59; Status DC Vancomycin HCl/ Sodium Chloride (Vancomycin Inj/ NS 250 ml Inj) 257.5 ml @ 250 mls/hr Q8H IV Last administered on 02/19/17 21:37; Start 02/17/17 at 13:00; Stop 02/19/17 at 23:59; Status DC Miscellaneous Information SPECIFIC LAB TO BE DRAWN:VANCO TROUGH DATE TO BE DR... ONCE ONCE XX Last administered on 02/18/17 12:11; Start 02/18/17 at 12: 45; Stop 02/18/17 at 12:46; Status DC Sodium Chloride (NS 1000 ml Inj) 1,000 ml @ 84 mls/hr [id number] IV Last administered on 02/19/17 00:01; Start 02/17/17 at 13:00; Stop 02/19/17 at 07:13 ; Status DC Enoxaparin Sodium (Lovenox Inj) 40 mg Q24H SQ Last administered on 03/13/17 22 :00; Start 02/17/17 at 20:00; Stop 03/14/17 at 16:38; Status DC Propranolol HCl (Inderal) 20 mg Q8HR PO Last administered on 02/19/17 14:00; Start 02/17/17 at 22:00; Stop 02/19/17 at 16:28; Status DC Lactulose (Lactulose Liq) 30 ml DAILY PRN PO if no bm by 1200; Start 02/19/17 at 07:30 Lansoprazole (Prevacid Odt) 30 mg DAILY NG Last administered on 04/01/17 09:05 ; Start 02/19/17 at 09:00 Oxycodone HCl (Roxicodone) 5 mg Q4H PRN PEG PAIN 4-6 Last administered on 00:27; Start 02/19/17 at 08:00 Propranolol HCl 20 mg 20 mg Q8HR PO Last administered on 02/26/17 05:47; Start 02/19/17 at 22:00; Stop 02/26/17 at 10:11; Status DC Ceftriaxone Sodium/Sodium Chloride (Rocephin Inj/NS Inj) 100 ml @ 200 mls/hr Q12H IV Last administered on 02/26/17 02:27; Start 02/22/17 at 14:00; Stop at 10:14; Status DC Artificial Tears (Tears Naturale Opth Soln) 1 drop Q6HR EACH EYE Last administered on 04/01/17 11:53; Start 02/22/17 at 19:00 Lacosamide 50 mg 50 mg BID G-TUBE Last administered on 04/01/17 09:05; Start 02/25/17 at 09:00 Levetriacetam (Keppra 1000 Mg Inj) 100 ml @ 100 mls/hr NOW ONCE IV Last administered on 02/26/17 09:00; Start 02/26/17 at 09:00; Stop 02/26/17 at 09:59; Status DC Levetriacetam (Keppra) 250 mg BID PO Last administered on 03/02/17 09:48; Start 02/26/17 at 09:00; Stop 03/02/17 at 21:42; Status DC Levetriacetam (Keppra) 500 mg BID PO Last administered on 03/02/17 09:48; Start 02/26/17 at 09:00; Stop 03/02/17 at 21:42; Status DC Midodrine (Proamatine) 5 mg TID PO Last administered on 02/27/17 13:04; Start 02/26/17 at 13:00; Stop 02/27/17 at 19:21; Status DC Propranolol HCl (Inderal) 10 mg Q8HR PO Last administered on 03/01/17 21:15; Start 02/26/17 at 14:00; Stop 03/01/17 at 23:31; Status DC Midodrine (Proamatine) 5 mg BID PO Last administered on 03/02/17 20:37; Start 02/27/17 at 21:00; Stop 03/02/17 at 21:50; Status DC Metoprolol Tartrate (Lopressor) 12.5 mg Q12HR PO Last administered on 08:30; Start 03/02/17 at 09:00; Stop 03/03/17 at 14:02; Status DC Sodium Chloride ([place]) 1 spray Q4H PRN NASAL NASAL CONGESTION; Start 03/01/17 at 23:45; Status Cancel Miscellaneous (Pill Splitter) 1 ea UNSCH PRN OTHER SEE LABEL COMMENTS; Start at 23:45 Levetriacetam (Keppra Liq) 750 mg BID PEG Last administered on 03/03/17 10:12 ; Start 03/02/17 at 21:45; Stop 03/03/17 at 16:18; Status DC Metoprolol Tartrate (Lopressor) 25 mg Q12HR PO Last administered on 03/06/17 10:10; Start 03/03/17 at 21:00; Stop 03/06/17 at 13:08; Status DC Metoprolol Tartrate (Lopressor) 12.5 mg ONCE ONCE PO Last administered on 03/03 15:25; Start 03/03/17 at 14:30; Stop 03/03/17 at 14:31; Status DC Levetriacetam 1000 mg 1,000 mg Q12HR NG Last administered on 03/07/17 09:22; Start 03/03/17 at 21:00; Stop 03/07/17 at 13:35; Status DC Levetriacetam (Keppra 1000 Mg Inj) 100 ml @ 400 mls/hr BOLUS ONCE IV Last administered on 03/03/17 16:57; Start 03/03/17 at 17:00; Stop 03/03/17 at 17:14 ; Status DC Thrombin (Thrombin Top Soln) 10,000 units STK-MED ONCE .ROUTE Last administered on 03/05/17 15:15; Start 03/05/17 at 14:04; Stop 03/05/17 at 14:05 ; Status DC Gelatin (Gelfoam 100 Top) 1 foam STK-MED ONCE .ROUTE Last administered on 15:15; Start 03/05/17 at 14:04; Stop 03/05/17 at 14:05; Status DC Gentamicin Sulfate (Gentamicin Inj) 240 mg STK-MED ONCE .ROUTE Last administered on 03/05/17 15:15; Start 03/05/17 at 14:04; Stop 03/05/17 at 14:05 ; Status DC Lidocaine/ Epinephrine (Xylocaine-Epi 1%-1:100,000 Inj) 40 ml STK-MED ONCE .ROUTE Last administered on 03/05/17 15:15; Start 03/05/17 at 14:05; Stop at 14:06; Status DC Vancomycin HCl (Vancomycin Inj) 1,000 mg STK-MED ONCE .ROUTE Last administered on 03/05/17 15:00; Start 03/05/17 at 14:58; Stop 03/05/17 at 14:59; Status DC Cefazolin Sodium (Ancef Inj) 1,000 mg STK-MED ONCE IV Last administered on 03/05 14:56; Start 03/05/17 at 14:56; Stop 03/05/17 at 15:48; Status DC Fentanyl Citrate (fentaNYL INJ) 250 mcg STK-MED ONCE .ROUTE ; Start 03/05/17 at 18:08; Stop 03/05/17 at 18:09; Status DC IV Flush (NS Flush) 2 ml UNSCH PRN IVF FLUSH AFTER USING IV ACCESS; Start 03/05 at 18:00 IV Flush 2 ml 2 ml BID IVF Last administered on 04/01/17 09:00; Start at 21:00 Potassium Chloride/Dextrose/ Sod Cl (D5-1/2 NS + KCl 20 Meq Inj) 1,000 ml @ 100 mls/hr Q10H IV Last administered on 03/16/17 05:43; Start 03/05/17 at 17: 49; Stop 03/16/17 at 16:34; Status DC Morphine Sulfate 8 mg 8 mg STK-MED ONCE .ROUTE Last administered on 03/05/17 20:10; Start 03/05/17 at 20:09; Stop 03/05/17 at 20:10; Status DC Sodium Chloride 1,000 ml @ 30 mls/hr Q24H IV ; Start 03/06/17 at 09:15; Stop at 09:14; Status Cancel Cefazolin Sodium/ Dextrose (Ancef 2 Gm Premix) 50 ml @ 100 mls/hr FIBERLINE SUPERVISOR IV ; Start 03/06/17 at 09:15; Stop 03/09/17 at 09:14; Status Cancel Sugammadex Sodium (Bridion Inj) 200 mg STK-MED ONCE IV PUSH ; Start 03/06/17 at 12:08; Stop 03/06/17 at 12:09; Status DC Metoprolol Tartrate 25 mg 25 mg Q8H PO Last administered on 03/29/17 09:19; Start 03/06/17 at 18:00; Stop 03/29/17 at 17:00; Status DC Fosphenytoin Sodium/Sodium Chloride (Cerebyx Inj/NS Inj) 60 ml @ 120 mls/hr NOW ONCE IV Last administered on 03/06/17 18:49; Start 03/06/17 at 18:00; Stop 03/06/17 at 18:29; Status DC Fosphenytoin Sodium (Cerebyx Inj) 150 mgpe Q8HR IV Last administered on 13:54; Start 03/06/17 at 22:00; Stop 03/16/17 at 20:02; Status DC Gadodiamide 9 ml 9 ml STK-MED ONCE IV Last administered on 03/06/17 21:12; Start 03/06/17 at 21:12; Stop 03/06/17 at 21:13; Status DC Fosphenytoin Sodium 1000 mgpe/ Sodium Chloride 70 ml @ 70 mls/hr ONCE ONCE IV Last administered on 03/08/17 11:56; Start 03/08/17 at 11:00; Stop 03/08/17 at 11:59; Status DC Sodium Chloride 250 ml @ 0 mls/hr ONCE ONCE IV Last administered on 03/08/17 14:15; Start 03/08/17 at 14:15; Stop 03/08/17 at 14:20; Status DC Sodium Chloride (NS 250 ml Inj) 250 ml @ 0 mls/hr NOW ONCE IV Last administered on 03/08/17 18:30; Start 03/08/17 at 18:30; Stop 03/08/17 at 18:31 ; Status DC Albuterol/ Ipratropium (Duoneb Neb) 1 ampule Q4HR NEB NEB Last administered on 04/01/17 12:00; Start 03/11/17 at 20:00 Phenytoin Sodium (Dilantin Inj) 250 mg ONCE ONCE IV Last administered on 15:39; Start 03/13/17 at 16:00; Stop 03/13/17 at 16:01; Status DC Enoxaparin Sodium (Lovenox Inj) 24 mg Q12H SQ ; Start 03/14/17 at 16:45; Stop at 16:45; Status DC Enoxaparin Sodium (Lovenox Inj) 50 mg Q12H SQ Last administered on 04/01/17 05 :43; Start 03/14/17 at 18:00 Phenobarbital (PHENobarbital LIQ) 60 mg Q12HR PEG Last administered on 09:05; Start 03/16/17 at 21:00 Phenytoin (Dilantin Liq) 150 mg Q8HR PEG Last administered on 04/01/17 05:43 ; Start 03/16/17 at 22:00 Ondansetron HCl (Zofran Odt) 4 mg Q6H PRN PO NAUSEA; Start 03/16/17 at 21:00 Propofol (Diprivan 200 Mg/20 ml Inj) 200 mg STK-MED ONCE IV ; Start 03/05/17 at 13:21; Stop 03/18/17 at 13:23; Status DC Ephedrine Sulfate (ePHEDrine/NS 25 MG/5 ML SYR) 25 mg STK-MED ONCE IV ; Start at 13:21; Stop 03/18/17 at 13:23; Status DC Neostigmine Methylsulfate (Prostigmin Inj) 3 mg STK-MED ONCE IV ; Start at 13:21; Stop 03/18/17 at 13:23; Status DC Phenylephrine HCl (Neosynephrine/ NS 1000 Mcg/10ml Syr) 1,000 mcg STK-MED ONCE IV ; Start 03/05/17 at 13:21; Stop 03/18/17 at 13:23; Status DC Ondansetron HCl 4 mg 4 mg STK-MED ONCE IV PUSH ; Start 03/05/17 at 13:21; Stop 03/18/17 at 13:23; Status DC Lactated Ringer's (Lr 1000 ml Inj) 1,000 ml @ As Directed STK-MED ONCE IV ; Start 03/05/17 at 13:21; Stop 03/18/17 at 13:23; Status DC Bisacodyl (Dulcolax Supp) 10 mg DAILY PRN RECTAL CONSTIPATION; Start 03/28/17 at 10:30 Metoprolol Tartrate (Lopressor) 37.5 mg Q8H PO Last administered on 04/01/17t 09:05; Start 03/29/17 at 18:00 Side: Left A/P Problem List: (1) Breakthrough seizure ICD Code: G40.919 Status: Chronic (2) Seizure disorder ICD Code: G40.909 Status: Acute (3) Major neurocognitive disorder as late effect of traumatic brain injury without behavioral disturbance ICD Code: S06.9X9S Status: Acute (4) Closed head injury ICD Code: S09.90XA Status: Acute (5) Subdural hematoma ICD Code: I62.00 Status: Acute (6) Pelvic fracture ICD Code: S32.9XXA Status: Acute (7) Kidney contusion ICD Code: S37.019A Status: Acute (8) Liver laceration ICD Code: S36.113A Status: Acute (9) Trauma ICD Code: T14.90 Status: Acute (10) Sinus tachycardia ICD Code: R00.0 Status: Acute (11) 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 Management per neurosurgery Will need [facility] care Unlikely to be functional again dilantin and phenobarbital levels are within range. On bromocriptine. Per neurosurgeon patient has hydrocephalus and may need BOTTLE FILLER shunt. Ct scan will be repeat to see if BOTTLE FILLER shunt should be placed. Seizure, breakthrough: Continue Vimpat 50mg BID and Dilantin 150mg Q8H as well as Phenobarbital 65mg BID Neurology ff - Dr. Newell ff. Chronic respiratory failure tracheostomy in place Follow oxygen saturations Pulmonary toilet Pulmonology following Levsin for secretions 03/19 d/w RT- trial of trach capping- LUE/RUE DVT: Lovenox 50mg SQ BID for now Treatment planned for 3 months right now Multiple pelvic fractures. Transverse process lumbar fractures Continue physical therapy Continue occupational therapy Continue speech therapy Sinus tachycardia: Secondary to traumatic brain injury. Continue metoprolol 25 mg TID. Continue monitor heart rate. Resolved MRSA pneumonia: completed vancomycin on 02/18. . GI prophylaxis protection with Prevacid. Tfs being held due to Dilantin. Reconsult dietitian in regards to recommendations. Patient is currently on 60 cc/h with intermittently being held due to Dilantin. DVT prevention Lovenox Discharge Planning At the [facility] Problem Qualifiers (1) Deep venous thrombosis of upper extremity: Qualified Code: I82.623 - Acute deep vein thrombosis (DVT) of both upper extremities, unspecified vein Rhonda Sharma MD April 01, 2017 15:58
--- NOTE | 2017-04-01 20:03 | HHI.PR ---
Subjective Remarks Awake and stable moves right arm and leg. Off O2 sat was 95. On a T bar now. Objective Vital Signs Date Time Temp Pulse Resp B/P Pulse Ox O2 Delivery O2 Flow Rate FiO2 04/01/17 16:52 95.6 122 19 138/67 98 04/01/17 12:56 98.6 103 19 109/70 100 04/01/17 09:41 100 T-piece 6.00 28 04/01/17 09:41 100 T-piece 2.00 28 04/01/17 08:49 95.9 106 19 152/96 100 04/01/17 04:29 100 Nasal Cannula 28 04/01/17 04:00 99.1 98 18 113/55 97 04/01/17 04:00 99 Nasal Cannula 04/01/17 02:14 98 Nasal Cannula 04/01/17 01:54 18 04/01/17 00:00 97.8 129 20 96 04/01/17 00:00 97.8 129 20 144/83 96 03/31/17 22:15 96 T-piece 21 I/O 03/31/17 03/31/17 03/31/17 04/01/17 04/01/17 04/01/17 07:00 15:00 23:00 07:00 15:00 23:00 Intake Total 590 ml Output Total 400 ml Balance 190 ml Tube Feeding 590 ml Output Urine Total 400 ml # Voids 0 3 4 2 2 # Bowel Movements 0 2 Procedures Replacement craniotomy bone flap 03/06/17 Side: Left Objective Remarks PHYSICAL EXAMINATION GENERAL: Averagely built young white female with no acute distress. HEENT: Head normocephalic. eyes clear. No bruits, no venous distension. CHEST: Equal movements with clear lungs. CARDIAC: Heart sounds are regular. Tachycardic. No murmur. ABDOMEN: Soft and nontender.PEG +. Bowel sounds are active. EXTREMITIES: Weakness of the lower limbs and left side . She is awake and moves her right arm . SKIN:No Lesions. Assessment and Plan Assessment and Plan IMPRESSION 1. Respiratory failure with a history of MRSA pneumonia 2. Status post craniotomy for a subdural hematoma and traumatic brain injury 3. Right rib fractures with history of pneumothorax, resolved 4. Tachycardia Plan : 1 O2 1 L N/C daytime 2. Suction trach prn . 3. Nebs qid , albuterol prn. 4. Cap Trach up to 16 hrs. Then to Trach collar 25 % at HS 5. PT evaluation 6. Tube feeds as ordered. 7. Rehab Placement anytime. 8. Labs in am Michela Mohr MD April 01, 2017 20:03
[2017-04-01] MEDS: FAMOTIDINE 20 MG TAB PO SCH (21:47)
[2017-04-02] VITALS (11 sets, daily range): BP systolic 124–138; BP diastolic 70–95; PULSE 100–125; RESP 18–20; TEMP 97.6–99.5; O2SAT 97–100
[2017-04-02] MEDS: METOPROLOL TARTRATE 25 MG TAB PO SCH ×3 (01:44→17:04)
[2017-04-02] MEDS: RESP: ALBUTEROL 2.5 MG/IPRATROPIUM 0.5 MG NEB (SCH) NEB ×6 (01:45→19:50)
[2017-04-02] MEDS: ENOXAPARIN SODIUM 60 MG/0.6 ML SYRINGE SQ SCH ×2 (05:45→17:05)
[2017-04-02] MEDS: PHENYTOIN SUSP 100 MG/4 ML CUP PEG SCH ×3 (05:45→21:00)
[2017-04-02] MEDS: ARTIFICIAL TEARS OPTH SOLN 15 ML BTL EACH EYE SCH ×4 (06:00→17:05)
[2017-04-02 07:31] LABS: AUTOMATED NEUTROPHIL # 15.4 TH/MM3 (1.8-7.7); BASOPHIL % 0.2 % (0.0-2.0); EOSINOPHIL # 0.4 TH/MM3 (0-0.4); EOSINOPHIL % 2.2 % (0.0-4.0); HEMATOCRIT 36.1 % (35.0-46.0); HEMO FLAGS DIFF FINAL; LYMPH % 7.5 % (9.0-44.0); LYMPHOCYTE # 1.4 TH/MM3 (1.0-4.8); MEAN CELL VOLUME 84.2 FL (80.0-100.0); MEAN CORPUSCULAR HEMOGLOBIN 27.6 PG (27.0-34.0); MEAN CORPUSCULAR HGB CONC 32.7 % (32.0-36.0); MONO % 7.8 % (0.0-8.0); NEUT % 82.3 % (16.0-70.0); PLATELET COUNT 291 TH/MM3 (150-450); RED BLOOD COUNT 4.28 MIL/MM3 (4.00-5.30); RED CELL DISTRIBUTION WIDTH 15.6 % (11.6-17.2); WHITE BLOOD COUNT 18.7 TH/MM3 (4.0-11.0)
[2017-04-02] MEDS: LACOSAMIDE 50 MG TAB G-TUBE SCH ×2 (08:57→21:00)
[2017-04-02] MEDS: LANSOPRAZOLE SOLUTAB 30 MG TAB NG SCH (08:57)
[2017-04-02] MEDS: BROMOCRIPTINE MESYLATE 2.5 MG TAB PO SCH ×2 (08:57→21:01)
[2017-04-02] MEDS: DOCUSATE SODIUM 50 MG/SENNA 8.6 MG TAB PO SCH ×2 (08:57→21:01)
[2017-04-02] MEDS: PHENobarbital ELIX 20 MG/5 ML CUP PEG SCH ×2 (08:58→21:00)
[2017-04-02] MEDS: SODIUM CHLORIDE 0.9% FLUSH 5 ML FLUSH IVF SCH ×2 (08:58→21:18)
--- NOTE | 2017-04-02 10:50 | HHI.PR ---
Subjective Remarks at bedside and stated patient more alert. he stated patient is awake all night and more lethargic during the daytime so she cannot participate in PT. he also stated that she is doing well. no acute4 events. Objective Vitals Vital Signs Date Time Temp Pulse Resp B/P Pulse Ox O2 Delivery O2 Flow Rate FiO2 04/02/17 09:32 99 T-Piece 2.00 04/02/17 08:22 100 T-piece 28 04/02/17 07:45 99.5 120 20 124/81 100 04/02/17 05:05 99 T-piece 6.00 28 04/02/17 04:00 98.7 120 20 138/80 98 04/02/17 00:00 97.6 118 18 130/70 97 04/01/17 21:24 96 T-piece 28 04/01/17 21:00 100 04/01/17 21:00 99 T-Piece 2.00 04/01/17 20:00 96.9 124 20 138/65 96 04/01/17 16:52 95.6 122 19 138/67 98 04/01/17 12:56 98.6 103 19 109/70 100 I/O 04/01/17 04/01/17 04/01/17 04/02/17 04/02/17 04/02/17 07:00 15:00 23:00 07:00 15:00 23:00 Intake Total 590 ml Output Total 400 ml Balance 190 ml Tube Feeding 590 ml Output Urine Total 400 ml # Voids 4 2 2 Result Diagram: 04/02/17 0656 Objective Remarks GENERAL: in NAD trach is in place. CARDIOVASCULAR: Regular rate and rhythm without murmurs, gallops, or rubs. RESPIRATORY: Breath sounds equal bilaterally, but transmitted upper resp sounds. No accessory muscle use. GASTROINTESTINAL: Abdomen soft, non-tender, nondistended. PEG is in place. MUSCULOSKELETAL: No cyanosis, or edema. BACK: Nontender without obvious deformity. No CVA tenderness. NEURO: Patient does not follow any commands but did open her eyes when I rubbed her chest. per this fluctuates. Procedures Replacement craniotomy bone flap 03/06/17 Medications and IVs Current Medications Sodium Chloride (NS Flush) 2 ml UNSCH PRN IV FLUSH FLUSH AFTER USING IV ACCESS ; Start 02/17/17 at 00:30; Stop 03/05/17 at 18:35; Status DC Sodium Chloride (NS Flush) 2 ml BID IV FLUSH Last administered on 03/05/17 08: 32; Start 02/17/17 at 09:00; Stop 03/05/17 at 18:35; Status DC Acetaminophen (Tylenol) 650 mg Q4H PRN PO TEMP > 100.4 Last administered on 03/30 22:32; Start 02/17/17 at 00:30 Ondansetron HCl (Zofran Inj) 4 mg Q6H PRN IVP NAUSEA OR VOMITING; Start at 00:30; Stop 03/16/17 at 20:08; Status DC Bisacodyl (Dulcolax Supp) 10 mg DAILY PRN MS SEE LABEL COMMENTS; Start at 00:30; Stop 02/17/17 at 11:25; Status DC Magnesium Hydroxide (Milk Of Magnesia Liq) 30 ml Q12H PRN PO CONSTIPATION; Start 02/17/17 at 00:30 Naloxone HCl (Narcan Inj) 0.4 mg UNSCH PRN IV SEE LABEL COMMENTS; Start at 00:30 Miscellaneous Information Patient in critical care unit? Ass... [id number] Last administered on 02/17/17 04:15; Start 02/17/17 at 04:15 Chlorhexidine Gluconate (Chlorhexidine 2% Cloth) 3 pack DAILY@04 TOPICAL Last administered on 02/22/17 04:00; Start 02/18/17 at 04:00; Stop 02/22/17 at 04:01; Status DC Chlorhexidine Gluconate (Chlorhexidine 2% Cloth) 3 pack UNSCH PRN TOPICAL HYGIENIC CARE; Start 02/17/17 at 04:15; Stop 02/22/17 at 04:04; Status DC Albuterol/ Ipratropium (Duoneb Neb) 1 ampule Q4HR NEB PRN NEB SHORTNESS OF BREATH Last administered on 03/09/17 10:27; Start 02/17/17 at 08:30; Stop 03/11 at 18:06; Status DC Bisacodyl (Dulcolax Supp) 10 mg DAILY RECTAL Last administered on 03/28/17 08: 55; Start 02/18/17 at 09:00; Stop 03/28/17 at 10:24; Status DC Bromocriptine Mesylate (Parlodel) 2.5 mg Q12HR PO Last administered on 08:57; Start 02/17/17 at 21:00 Famotidine (Pepcid) 20 mg HS PO Last administered on 04/01/17 21:47; Start at 21:00 Hyoscyamine Sulfate (Levsin) 0.125 mg Q4H PRN PO secretions; Start 02/17/17 at 11:15 Ibuprofen (Motrin Liq) 200 mg Q6H PRN PO temp>101 Last administered on 18:04; Start 02/17/17 at 11:15 Lactulose (Lactulose Liq) 30 ml DAILY PO Last administered on 02/18/17 09:05; Start 02/18/17 at 09:00; Stop 02/19/17 at 07:23; Status DC Levetriacetam (Keppra) 500 mg BID PO Last administered on 02/25/17 21:19; Start 02/17/17 at 11:30; Stop 02/26/17 at 08:46; Status DC Midodrine (Proamatine) 10 mg TID PO Last administered on 02/25/17 19:00; Start 02/17/17 at 13:00; Stop 02/26/17 at 10:10; Status DC Oxycodone HCl (Roxicodone Intensol Liq) 5 mg Q4H PRN PO pain 4-6; Start at 11:15; Stop 02/19/17 at 07:46; Status DC Pantoprazole Sodium (Protonix Inj) 40 mg Q24H IV PUSH Last administered on 02/18 12:11; Start 02/17/17 at 12:00; Stop 02/19/17 at 07:23; Status DC Phenobarbital Sodium (Luminal Inj) 65 mg BID IV Last administered on 03/16/17 09:20; Start 02/17/17 at 12:00; Stop 03/16/17 at 20:02; Status DC Propranolol HCl (Inderal) 10 mg Q8HR PO Last administered on 02/17/17 15:58; Start 02/17/17 at 14:00; Stop 02/17/17 at 20:20; Status DC Senna/Docusate Sodium 1 tab 1 tab BID PO Last administered on 04/02/17 08:57; Start 02/17/17 at 21:00 Vancomycin HCl 1500 mg/Sodium Chloride 515 ml @ 257.5 mls/ hr Q12H IV ; Start 02/17/17 at 11:30; Status UNV Pharmacy Profile Note 0 ml @ 0 mls/hr UNSCH OTHER ; Start 02/17/17 at 11:30; Stop 02/19/17 at 23:59; Status DC Vancomycin HCl/ Sodium Chloride (Vancomycin Inj/ NS 250 ml Inj) 257.5 ml @ 250 mls/hr Q8H IV Last administered on 02/19/17 21:37; Start 02/17/17 at 13:00; Stop 02/19/17 at 23:59; Status DC Miscellaneous Information SPECIFIC LAB TO BE DRAWN:VANCO TROUGH DATE TO BE DR... ONCE ONCE XX Last administered on 02/18/17 12:11; Start 02/18/17 at 12: 45; Stop 02/18/17 at 12:46; Status DC Sodium Chloride (NS 1000 ml Inj) 1,000 ml @ 84 mls/hr [id number] IV Last administered on 02/19/17 00:01; Start 02/17/17 at 13:00; Stop 02/19/17 at 07:13 ; Status DC Enoxaparin Sodium (Lovenox Inj) 40 mg Q24H SQ Last administered on 03/13/17 22 :00; Start 02/17/17 at 20:00; Stop 03/14/17 at 16:38; Status DC Propranolol HCl (Inderal) 20 mg Q8HR PO Last administered on 02/19/17 14:00; Start 02/17/17 at 22:00; Stop 02/19/17 at 16:28; Status DC Lactulose (Lactulose Liq) 30 ml DAILY PRN PO if no bm by 1200; Start 02/19/17 at 07:30 Lansoprazole (Prevacid Odt) 30 mg DAILY NG Last administered on 04/02/17 08:57 ; Start 02/19/17 at 09:00 Oxycodone HCl (Roxicodone) 5 mg Q4H PRN PEG PAIN 4-6 Last administered on 21:47; Start 02/19/17 at 08:00 Propranolol HCl 20 mg 20 mg Q8HR PO Last administered on 02/26/17 05:47; Start 02/19/17 at 22:00; Stop 02/26/17 at 10:11; Status DC Ceftriaxone Sodium/Sodium Chloride (Rocephin Inj/NS Inj) 100 ml @ 200 mls/hr Q12H IV Last administered on 02/26/17 02:27; Start 02/22/17 at 14:00; Stop at 10:14; Status DC Artificial Tears (Tears Naturale Opth Soln) 1 drop Q6HR EACH EYE Last administered on 04/02/17 00:00; Start 02/22/17 at 19:00 Lacosamide 50 mg 50 mg BID G-TUBE Last administered on 04/02/17 08:57; Start 02/25/17 at 09:00 Levetriacetam (Keppra 1000 Mg Inj) 100 ml @ 100 mls/hr NOW ONCE IV Last administered on 02/26/17 09:00; Start 02/26/17 at 09:00; Stop 02/26/17 at 09:59; Status DC Levetriacetam (Keppra) 250 mg BID PO Last administered on 03/02/17 09:48; Start 02/26/17 at 09:00; Stop 03/02/17 at 21:42; Status DC Levetriacetam (Keppra) 500 mg BID PO Last administered on 03/02/17 09:48; Start 02/26/17 at 09:00; Stop 03/02/17 at 21:42; Status DC Midodrine (Proamatine) 5 mg TID PO Last administered on 02/27/17 13:04; Start 02/26/17 at 13:00; Stop 02/27/17 at 19:21; Status DC Propranolol HCl (Inderal) 10 mg Q8HR PO Last administered on 03/01/17 21:15; Start 02/26/17 at 14:00; Stop 03/01/17 at 23:31; Status DC Midodrine (Proamatine) 5 mg BID PO Last administered on 03/02/17 20:37; Start 02/27/17 at 21:00; Stop 03/02/17 at 21:50; Status DC Metoprolol Tartrate (Lopressor) 12.5 mg Q12HR PO Last administered on 08:30; Start 03/02/17 at 09:00; Stop 03/03/17 at 14:02; Status DC Sodium Chloride ([place] Mathieu Valmy) 1 spray Q4H PRN NASAL NASAL CONGESTION; Start 03/01/17 at 23:45; Status Cancel Miscellaneous (Pill Splitter) 1 ea UNSCH PRN OTHER SEE LABEL COMMENTS; Start at 23:45 Levetriacetam (Keppra Liq) 750 mg BID PEG Last administered on 03/03/17 10:12 ; Start 03/02/17 at 21:45; Stop 03/03/17 at 16:18; Status DC Metoprolol Tartrate (Lopressor) 25 mg Q12HR PO Last administered on 03/06/17 10:10; Start 03/03/17 at 21:00; Stop 03/06/17 at 13:08; Status DC Metoprolol Tartrate (Lopressor) 12.5 mg ONCE ONCE PO Last administered on 03/03 15:25; Start 03/03/17 at 14:30; Stop 03/03/17 at 14:31; Status DC Levetriacetam 1000 mg 1,000 mg Q12HR NG Last administered on 03/07/17 09:22; Start 03/03/17 at 21:00; Stop 03/07/17 at 13:35; Status DC Levetriacetam (Keppra 1000 Mg Inj) 100 ml @ 400 mls/hr BOLUS ONCE IV Last administered on 03/03/17 16:57; Start 03/03/17 at 17:00; Stop 03/03/17 at 17:14 ; Status DC Thrombin (Thrombin Top Soln) 10,000 units STK-MED ONCE .ROUTE Last administered on 03/05/17 15:15; Start 03/05/17 at 14:04; Stop 03/05/17 at 14:05 ; Status DC Gelatin (Gelfoam 100 Top) 1 foam STK-MED ONCE .ROUTE Last administered on 15:15; Start 03/05/17 at 14:04; Stop 03/05/17 at 14:05; Status DC Gentamicin Sulfate (Gentamicin Inj) 240 mg STK-MED ONCE .ROUTE Last administered on 03/05/17 15:15; Start 03/05/17 at 14:04; Stop 03/05/17 at 14:05 ; Status DC Lidocaine/ Epinephrine (Xylocaine-Epi 1%-1:100,000 Inj) 40 ml STK-MED ONCE .ROUTE Last administered on 03/05/17 15:15; Start 03/05/17 at 14:05; Stop at 14:06; Status DC Vancomycin HCl (Vancomycin Inj) 1,000 mg STK-MED ONCE .ROUTE Last administered on 03/05/17 15:00; Start 03/05/17 at 14:58; Stop 03/05/17 at 14:59; Status DC Cefazolin Sodium (Ancef Inj) 1,000 mg STK-MED ONCE IV Last administered on 03/05 14:56; Start 03/05/17 at 14:56; Stop 03/05/17 at 15:48; Status DC Fentanyl Citrate (fentaNYL INJ) 250 mcg STK-MED ONCE .ROUTE ; Start 03/05/17 at 18:08; Stop 03/05/17 at 18:09; Status DC IV Flush (NS Flush) 2 ml UNSCH PRN IVF FLUSH AFTER USING IV ACCESS; Start 03/05 at 18:00 IV Flush 2 ml 2 ml BID IVF Last administered on 04/02/17 08:58; Start at 21:00 Potassium Chloride/Dextrose/ Sod Cl (D5-1/2 NS + KCl 20 Meq Inj) 1,000 ml @ 100 mls/hr Q10H IV Last administered on 03/16/17 05:43; Start 03/05/17 at 17: 49; Stop 03/16/17 at 16:34; Status DC Morphine Sulfate 8 mg 8 mg STK-MED ONCE .ROUTE Last administered on 03/05/17 20:10; Start 03/05/17 at 20:09; Stop 03/05/17 at 20:10; Status DC Sodium Chloride 1,000 ml @ 30 mls/hr Q24H IV ; Start 03/06/17 at 09:15; Stop at 09:14; Status Cancel Cefazolin Sodium/ Dextrose (Ancef 2 Gm Premix) 50 ml @ 100 mls/hr 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 IV ; Start 03/06/17 at 09:15; Stop 03/09/17 at 09:14; Status Cancel Sugammadex Sodium (Bridion Inj) 200 mg STK-MED ONCE IV PUSH ; Start 03/06/17 at 12:08; Stop 03/06/17 at 12:09; Status DC Metoprolol Tartrate 25 mg 25 mg Q8H PO Last administered on 03/29/17 09:19; Start 03/06/17 at 18:00; Stop 03/29/17 at 17:00; Status DC Fosphenytoin Sodium/Sodium Chloride (Cerebyx Inj/NS Inj) 60 ml @ 120 mls/hr NOW ONCE IV Last administered on 03/06/17 18:49; Start 03/06/17 at 18:00; Stop 03/06/17 at 18:29; Status DC Fosphenytoin Sodium (Cerebyx Inj) 150 mgpe Q8HR IV Last administered on 13:54; Start 03/06/17 at 22:00; Stop 03/16/17 at 20:02; Status DC Gadodiamide 9 ml 9 ml STK-MED ONCE IV Last administered on 03/06/17 21:12; Start 03/06/17 at 21:12; Stop 03/06/17 at 21:13; Status DC Fosphenytoin Sodium 1000 mgpe/ Sodium Chloride 70 ml @ 70 mls/hr ONCE ONCE IV Last administered on 03/08/17 11:56; Start 03/08/17 at 11:00; Stop 03/08/17 at 11:59; Status DC Sodium Chloride 250 ml @ 0 mls/hr ONCE ONCE IV Last administered on 03/08/17 14:15; Start 03/08/17 at 14:15; Stop 03/08/17 at 14:20; Status DC Sodium Chloride (NS 250 ml Inj) 250 ml @ 0 mls/hr NOW ONCE IV Last administered on 03/08/17 18:30; Start 03/08/17 at 18:30; Stop 03/08/17 at 18:31 ; Status DC Albuterol/ Ipratropium (Duoneb Neb) 1 ampule Q4HR NEB NEB Last administered on 04/02/17 08:22; Start 03/11/17 at 20:00 Phenytoin Sodium (Dilantin Inj) 250 mg ONCE ONCE IV Last administered on 15:39; Start 03/13/17 at 16:00; Stop 03/13/17 at 16:01; Status DC Enoxaparin Sodium (Lovenox Inj) 24 mg Q12H SQ ; Start 03/14/17 at 16:45; Stop at 16:45; Status DC Enoxaparin Sodium (Lovenox Inj) 50 mg Q12H SQ Last administered on 04/02/17 05 :45; Start 03/14/17 at 18:00 Phenobarbital (PHENobarbital LIQ) 60 mg Q12HR PEG Last administered on 08:58; Start 03/16/17 at 21:00 Phenytoin (Dilantin Liq) 150 mg Q8HR PEG Last administered on 04/02/17 05:45 ; Start 03/16/17 at 22:00 Ondansetron HCl (Zofran Odt) 4 mg Q6H PRN PO NAUSEA; Start 03/16/17 at 21:00 Propofol (Diprivan 200 Mg/20 ml Inj) 200 mg STK-MED ONCE IV ; Start 03/05/17 at 13:21; Stop 03/18/17 at 13:23; Status DC Ephedrine Sulfate (ePHEDrine/NS 25 MG/5 ML SYR) 25 mg STK-MED ONCE IV ; Start at 13:21; Stop 03/18/17 at 13:23; Status DC Neostigmine Methylsulfate (Prostigmin Inj) 3 mg STK-MED ONCE IV ; Start at 13:21; Stop 03/18/17 at 13:23; Status DC Phenylephrine HCl (Neosynephrine/ NS 1000 Mcg/10ml Syr) 1,000 mcg STK-MED ONCE IV ; Start 03/05/17 at 13:21; Stop 03/18/17 at 13:23; Status DC Ondansetron HCl 4 mg 4 mg STK-MED ONCE IV PUSH ; Start 03/05/17 at 13:21; Stop 03/18/17 at 13:23; Status DC Lactated Ringer's (Lr 1000 ml Inj) 1,000 ml @ As Directed STK-MED ONCE IV ; Start 03/05/17 at 13:21; Stop 03/18/17 at 13:23; Status DC Bisacodyl (Dulcolax Supp) 10 mg DAILY PRN RECTAL CONSTIPATION; Start 03/28/17 at 10:30 Metoprolol Tartrate (Lopressor) 37.5 mg Q8H PO Last administered on 04/02/17t 08:58; Start 03/29/17 at 18:00 Side: Left A/P Problem List: (1) Breakthrough seizure ICD Code: G40.919 Status: Chronic (2) Seizure disorder ICD Code: G40.909 Status: Acute (3) Major neurocognitive disorder as late effect of traumatic brain injury without behavioral disturbance ICD Code: S06.9X9S Status: Acute (4) Closed head injury ICD Code: S09.90XA Status: Acute (5) Subdural hematoma ICD Code: I62.00 Status: Acute (6) Pelvic fracture ICD Code: S32.9XXA Status: Acute (7) Kidney contusion ICD Code: S37.019A Status: Acute (8) Liver laceration ICD Code: S36.113A Status: Acute (9) Trauma ICD Code: T14.90 Status: Acute (10) Sinus tachycardia ICD Code: R00.0 Status: Acute (11) 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 Management per neurosurgery Will need senior living care Unlikely to be functional again dilantin and phenobarbital levels are within range. On bromocriptine. Per neurosurgeon patient has hydrocephalus and may need MANAGER GOLF shunt. Ct scan will be repeat to see if MANAGER GOLF shunt should be placed. Leukocytosis -clinically patient is doing well. -she is producing slightly more sputum but oxygenation is the same and clinically stable. -per he does not work further work up at the moment and want to monitor first. -continue to monitor. Seizure, breakthrough: Continue Vimpat 50mg BID and Dilantin 150mg Q8H as well as Phenobarbital 65mg BID Neurology ff - Dr. Osiris castellanos. Chronic respiratory failure tracheostomy in place Follow oxygen saturations Pulmonary toilet Pulmonology following Levsin for secretions 03/19 d/w RT- trial of trach capping- LUE/RUE DVT: Lovenox 50mg SQ BID for now Treatment planned for 3 months right now Multiple pelvic fractures. Transverse process lumbar fractures Continue physical therapy Continue occupational therapy Continue speech therapy Sinus tachycardia: Secondary to traumatic brain injury. Continue metoprolol 25 mg TID. Continue monitor heart rate. Resolved MRSA pneumonia: completed vancomycin on 02/18. . GI prophylaxis protection with Prevacid. Tfs being held due to Dilantin. Reconsult dietitian in regards to recommendations. Patient is currently on 70 cc/h with intermittently being held due to Dilantin. DVT prevention Lovenox Discharge Planning At the moment [facility] due to possible MANAGER GOLF shunt placement. Problem Qualifiers (1) Deep venous thrombosis of upper extremity: Qualified Code: I82.623 - Acute deep vein thrombosis (DVT) of both upper extremities, unspecified vein Rhonda Sharma MD April 02, 2017 10:50
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
[2017-04-02] MEDS: FAMOTIDINE 20 MG TAB PO SCH (21:01)
[2017-04-02] MEDS: LORazepam 0.5 MG TAB PO SCH (21:01)
[2017-04-03] VITALS (11 sets, daily range): BP systolic 110–154; BP diastolic 72–88; PULSE 93–120; RESP 18–21; TEMP 97–99.4; O2SAT 97–100
[2017-04-03] MEDS: ARTIFICIAL TEARS OPTH SOLN 15 ML BTL EACH EYE SCH ×4 (00:45→17:00)
[2017-04-03] MEDS: RESP: ALBUTEROL 2.5 MG/IPRATROPIUM 0.5 MG NEB (SCH) NEB ×6 (01:40→20:19)
[2017-04-03] MEDS: METOPROLOL TARTRATE 25 MG TAB PO SCH ×3 (02:01→17:00)
[2017-04-03] MEDS: PHENYTOIN SUSP 100 MG/4 ML CUP PEG SCH ×3 (05:29→21:00)
[2017-04-03] MEDS: ENOXAPARIN SODIUM 60 MG/0.6 ML SYRINGE SQ SCH ×2 (05:32→17:00)
[2017-04-03] MEDS: SODIUM CHLORIDE 0.9% FLUSH 5 ML FLUSH IVF SCH ×2 (09:00→21:00)
[2017-04-03] MEDS: BROMOCRIPTINE MESYLATE 2.5 MG TAB PO SCH ×2 (09:02→21:00)
[2017-04-03] MEDS: LACOSAMIDE 50 MG TAB G-TUBE SCH ×2 (09:02→21:00)
[2017-04-03] MEDS: PHENobarbital ELIX 20 MG/5 ML CUP PEG SCH ×2 (09:02→21:01)
[2017-04-03] MEDS: DOCUSATE SODIUM 50 MG/SENNA 8.6 MG TAB PO SCH ×2 (09:02→21:00)
[2017-04-03] MEDS: LANSOPRAZOLE SOLUTAB 30 MG TAB NG SCH (09:02)
--- NOTE | 2017-04-03 10:52 | HHI.NSPN ---
([place]) Note Status Status: Progress Note ([place]) Interval History Interval History Ms. Laurent is a 22 y/o female with a history of TBI 03/05: To OR for: Replacement left craniotomy bone flap Left frontotemporoparietal duraplasty 03/06: POD # 1 replacement craniotomy bone flap 03/07: today mildly opening eyes, however not following commands 03/08: f/u CT Head completed, more awake today 03/09: Patient opens eyes spontaneously but not tracking 03/10: Patient opens eyes to noxious stimuli, Nursing reports she is more responsive to than staff 03/11: Patient transferred to regular med/surg floor 03/12: Eyes open, smiles, still tachycardiac 03/13: Patient drowsy today, minimally follows commands. 03/14/17: Heparin IV started for DVT. CT Head satisfactory 03/16: Patient awake, OT at bedside doing LUE exercises 03/17: Patient sleeping, not responding to verbal stimuli, no apparent distress. Samantha to craniotomy incision removed yesterday. 03/18: Patient awake, follows some commands. 03/19: Patient asleep but awakens to verbal stimuli, follows commands but not consistently. 03/20: Patient awakes, smiles when asked to, follows commands but not consistently, NAD. states she was tachycardiac in the 140s earlier and was given Roxicodone. 03/21: Patient awakes, follows commands but not consistently, no new issues 03/23: Patient is awake, follows some commands inconsistently. states she has been "acting funny" today. 03/25: Patient is asleep when seen. She turns to the sound of this practitioner's voice and flutters her eyelids. She did smile to command but did not follow any other commands. She was seen moving the right leg spontaneously. Her stated Therapy had just worked with her. 03/27: Patient asleep when initially seen this morning and did not respond to verbal stimuli. When seen this afternoon the patient did finally start to flutter her eyes and smile upon command after being coaxed. She was noted to spontaneously move the RUE & BLE. She did move the BLE to noxious stimuli applied to the LUE. It was difficult to tell if she did attempt to wiggle the toes to command because she would move her feet. 03/30: Patient asleep when seen. No response to verbal stimuli initially. Did not follow any commands. Did have facial grimace to noxious stimuli to BUE & RLE but withdrew to LLE. She did smile to verbal stimuli as this practitioner was finishing examining her. 03/31: The patient was asleep but did response to verbal coaxing to smile and stick her tongue out. A CT brain yesterday was concerning for development of hydrocephalus. The known left frontal fluid collection was not evident. 04/01: The patient was asleep but responded to verbal to verbal stimuli. 04/02: The patient was asleep but with much coaxing did wake up and follow some commands. ([place]) Labs, Micro, & Vital Signs Results Allergies Coded Allergies Type Severity Reaction Last Updated Verified No Known Allergies 12/15/16 No ///// 06:00 18:00 06:00 18:00 06:00 18:00 Intake Total 590 ml 0 ml Output Total 400 ml Balance 190 ml 0 ml Intake Oral 0 ml Tube Feeding 590 ml Output Urine Total 400 ml # Voids 4 4 2 2 # Bowel Movements 1 Laboratory Tests Test 04/02/17 06:56 White Blood Count 18.7 TH/MM3 Red Blood Count 4.28 MIL/MM3 Hemoglobin 11.8 GM/DL Hematocrit 36.1 % Mean Corpuscular Volume 84.2 FL Mean Corpuscular Hemoglobin 27.6 PG Mean Corpuscular Hemoglobin 32.7 % Concent Red Cell Distribution Width 15.6 % Platelet Count 291 TH/MM3 Mean Platelet Volume 8.0 FL Neutrophils (%) (Auto) 82.3 % Lymphocytes (%) (Auto) 7.5 % Monocytes (%) (Auto) 7.8 % Eosinophils (%) (Auto) 2.2 % Basophils (%) (Auto) 0.2 % Neutrophils # (Auto) 15.4 TH/MM3 Lymphocytes # (Auto) 1.4 TH/MM3 Monocytes # (Auto) 1.5 TH/MM3 Eosinophils # (Auto) 0.4 TH/MM3 Basophils # (Auto) 0.0 TH/MM3 CBC Comment DIFF FINAL Differential Comment Constitutional Vital Signs Date Time Temp Pulse Resp B/P Pulse Ox O2 Delivery O2 Flow Rate FiO2 04/03/17 10:30 103 04/03/17 08:54 98 T-piece 5.00 28 04/03/17 08:54 99 T-piece 5.00 28 04/03/17 08:26 100 T-Piece 2.00 04/03/17 08:01 97.0 100 18 110/72 97 04/03/17 05:15 98.9 106 20 126/75 99 04/03/17 01:30 100 T-piece 5.00 28 04/03/17 00:15 98.8 120 20 130/80 99 04/02/17 21:30 99.3 122 19 136/84 99 04/02/17 20:50 99 T-Piece 2.00 04/02/17 19:54 97 T-piece 28 04/02/17 19:54 97 T-piece 28 04/02/17 19:42 100 04/02/17 16:24 99.4 118 20 138/77 100 04/02/17 12:06 99.4 111 20 135/95 97 04/02/17 12:00 125 04/03/17 07:00 Intake Total 0 ml Balance 0 ml ([place]) Review of Systems/Exam ROS Unable to obtain ROS due to patient's mental status. Exam HEENT: Surgical incision well approximated w/o any evident drainage, erythema or streaking. Resp: Essentially clear bilaterally w/o W/R/R, equal excursion, non-laboured, on trach collar. CV: RRR w/o M/G/R but fast, cap refill < 2 sec, radial & pedal pulses 2+ bilaterally, no pedal edema. GI: Abdomen soft & nontender, bowel sounds present. Enteral feeds by PEG. Neuro: Asleep but awakes to verbal stimuli after much coaxing. She did smile and stick out her tongue. She spontaneously moved the RLE > LLE. There was some movement of the BLE to noxious stimuli. She did move the RUE to noxious stimuli and was noted to move it some after the extremity was repositioned. ([place]) Medications Current Medications Current Medications Medications (Trade) Dose Ordered Sig/Raji Route Start Time Stop Time Status Last Admin (Tylenol) 650 mg Q4H PRN PO 02/17/17 00:30 03/30/17 22:32 (Milk Of Magnesia Liq) 30 ml Q12H PRN PO 02/17/17 00:30 (Narcan Inj) 0.4 mg UNSCH PRN IV 02/17/17 00:30 Miscellaneous Information Patient in critical care unit? Ass... Q361D XX 02/17/17 04:15 02/17/17 04:15 (Parlodel) 2.5 mg Q12HR PO 02/17/17 21:00 04/03/17 09:02 (Pepcid) 20 mg HS PO 02/17/17 21:00 04/02/17 21:01 (Levsin) 0.125 mg Q4H PRN PO 02/17/17 11:15 (Motrin Liq) 200 mg Q6H PRN PO 02/17/17 11:15 03/26/17 18:04 (Malu-Colace) 1 tab BID PO 02/17/17 21:00 04/03/17 09:02 (Lactulose Liq) 30 ml DAILY PRN PO 02/19/17 07:30 (Prevacid Odt) 30 mg DAILY NG 02/19/17 09:00 04/03/17 09:02 (Roxicodone) 5 mg Q4H PRN PEG 02/19/17 08:00 04/01/17 21:47 (Tears Naturale Opth Soln) 1 drop Q6HR EACH EYE 02/22/17 19:00 04/03/17 05:29 (Vimpat) 50 mg BID G-TUBE 02/25/17 09:00 04/03/17 09:02 (Pill Splitter) 1 ea UNSCH PRN OTHER 03/01/17 23:45 (NS Flush) 2 ml UNSCH PRN IVF 03/05/17 18:00 (NS Flush) 2 ml BID IVF 03/05/17 21:00 04/03/17 09:00 (Lovenox Inj) 50 mg Q12H SQ 03/14/17 18:00 04/03/17 05:32 (PHENobarbital LIQ) 60 mg Q12HR PEG 03/16/17 21:00 04/03/17 09:02 (Dilantin Liq) 150 mg Q8HR PEG 03/16/17 22:00 04/03/17 05:29 (Zofran Odt) 4 mg Q6H PRN PO 03/16/17 21:00 (Dulcolax Supp) 10 mg DAILY PRN RECTAL 03/28/17 10:30 (Lopressor) 37.5 mg Q8H PO 03/29/17 18:00 04/03/17 09:02 (Ativan) 0.5 mg HS PO 04/02/17 21:00 04/02/17 21:01 ([place]) Medical Decision Making MDM Remarks 22 y/o female with a history of TBI POD # 29 s/p craniotomy for bone flap replacement Neurological function appears stable although still with inconsistent responses Upper extremity venous thrombosis Probable hydrocephalus developing vs brain atrophy on CT brain ( [place]) Plan Plan Remarks Continue neuro checks Continue anticonvulsants per Neurology Continue heparin drip for upper extremity DVT Continue mechanical DVT prophylaxis Primary management & HR mgmt per Trauma Per she has been accepted at [facility] for rehab but is waiting for Pulmonology clearance. ([place]) Attending Statement I have personally seen and examined the patient on the date of this note. Pertinent documentation and study results have been reviewed by the undersigned. I have personally developed the treatment plan and performed medical decision making. Agree with findings, exam, and treatment plan as noted above. Spontaneous eye opening, following a few simple commands today Stable neurologic exam Inpatient rehabilitation pending Following hydrocephalus with serial CT scanning (Victor Hugo Gibson MD) [place] April 03, 2017 10:52 Victor Hugo Gibson MD April 03, 2017 19:46
[2017-04-03 11:28] LABS: AUTOMATED NEUTROPHIL # 5.5 TH/MM3 (1.8-7.7); BASOPHIL % 0.4 % (0.0-2.0); EOSINOPHIL # 0.4 TH/MM3 (0-0.4); EOSINOPHIL % 4.9 % (0.0-4.0); HEMATOCRIT 35.5 % (35.0-46.0); HEMO FLAGS DIFF FINAL; LYMPH % 22.2 % (9.0-44.0); LYMPHOCYTE # 1.8 TH/MM3 (1.0-4.8); MEAN CELL VOLUME 83.1 FL (80.0-100.0); MEAN CORPUSCULAR HEMOGLOBIN 27.6 PG (27.0-34.0); MEAN CORPUSCULAR HGB CONC 33.2 % (32.0-36.0); MONO % 6.9 % (0.0-8.0); NEUT % 65.6 % (16.0-70.0); PLATELET COUNT 250 TH/MM3 (150-450); RED BLOOD COUNT 4.27 MIL/MM3 (4.00-5.30); RED CELL DISTRIBUTION WIDTH 15.7 % (11.6-17.2); WHITE BLOOD COUNT 8.3 TH/MM3 (4.0-11.0)
[2017-04-03 11:49] LABS: BICARBONATE 31.8 MEQ/L (21.0-32.0); POTASSIUM 3.9 MEQ/L (3.5-5.1)
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
[2017-04-03] MEDS: LORazepam 0.5 MG TAB PO SCH (21:00)
[2017-04-03] MEDS: FAMOTIDINE 20 MG TAB PO SCH (21:00)
[2017-04-04] VITALS (9 sets, daily range): BP systolic 111–138; BP diastolic 67–90; PULSE 102–117; RESP 16–22; TEMP 96.6–98.9; O2SAT 97–100
[2017-04-04] MEDS: RESP: ALBUTEROL 2.5 MG/IPRATROPIUM 0.5 MG NEB (SCH) NEB ×8 (00:24→23:24)
[2017-04-04] MEDS: METOPROLOL TARTRATE 25 MG TAB PO SCH ×3 (02:09→17:06)
[2017-04-04] MEDS: ENOXAPARIN SODIUM 60 MG/0.6 ML SYRINGE SQ SCH ×2 (05:35→17:05)
[2017-04-04] MEDS: PHENYTOIN SUSP 100 MG/4 ML CUP PEG SCH ×3 (05:35→22:58)
[2017-04-04] MEDS: ARTIFICIAL TEARS OPTH SOLN 15 ML BTL EACH EYE SCH ×4 (05:41→17:07)
[2017-04-04] MEDS: SODIUM CHLORIDE 0.9% FLUSH 5 ML FLUSH IVF SCH ×2 (09:29→21:00)
[2017-04-04] MEDS: PHENobarbital ELIX 20 MG/5 ML CUP PEG SCH ×2 (09:30→22:58)
[2017-04-04] MEDS: DOCUSATE SODIUM 50 MG/SENNA 8.6 MG TAB PO SCH ×2 (09:30→22:57)
[2017-04-04] MEDS: LACOSAMIDE 50 MG TAB G-TUBE SCH ×2 (09:30→22:57)
[2017-04-04] MEDS: LANSOPRAZOLE SOLUTAB 30 MG TAB NG SCH (09:30)
[2017-04-04] MEDS: BROMOCRIPTINE MESYLATE 2.5 MG TAB PO SCH ×2 (09:30→22:57)
[2017-04-04] MEDS: IBUPROFEN SUSP 100 MG/5 ML UDC PO PRN (17:06)
--- NOTE | 2017-04-04 19:05 | HHI.PR ---
Subjective Remarks Awake and stable . Off O2 sat was 95. Trach Capped Objective Vital Signs Date Time Temp Pulse Resp B/P Pulse Ox O2 Delivery O2 Flow Rate FiO2 04/04/17 18:06 18 04/04/17 16:00 98.1 113 20 121/86 97 04/04/17 12:00 96.6 103 20 111/77 98 04/04/17 08:47 100 T-piece 28 04/04/17 08:00 97.5 109 22 138/90 98 04/04/17 08:00 100 Trach Collar 6.00 28 04/04/17 08:00 102 04/04/17 05:30 98.3 107 20 134/87 100 04/04/17 00:24 98 T-piece 6.00 28 04/04/17 00:24 98 T-piece 6.00 28 04/04/17 00:15 98.9 108 20 125/67 99 04/03/17 22:40 93 04/03/17 21:30 99.4 115 21 134/74 98 04/03/17 21:00 98 T-Piece 2.00 I/O 04/03/17 04/03/17 04/03/17 04/04/17 04/04/17 04/04/17 07:00 15:00 23:00 07:00 15:00 23:00 Intake Total 0 ml 0 ml 0 ml 890 ml Balance 0 ml 0 ml 0 ml 890 ml Intake Oral 0 ml 0 ml 0 ml Tube Feeding 490 ml Other 400 ml # Voids 1 5 1 2 6 # Bowel Movements 0 0 0 0 2 Result Diagram: 04/03/17 1114 04/03/17 1114 Procedures Replacement craniotomy bone flap 03/06/17 Side: Left Objective Remarks PHYSICAL EXAMINATION GENERAL: Averagely built young white female with no acute distress. HEENT: Head normocephalic. eyes clear. No bruits, no venous distension. Trach in. CHEST: Equal movements with clear lungs. CARDIAC: Heart sounds are regular. Tachycardic. No murmur. ABDOMEN: Soft and nontender.PEG +. Bowel sounds are active. EXTREMITIES: Weakness of the lower limbs and left side . She is awake and moves her right arm . SKIN:No Lesions. Assessment and Plan Assessment and Plan IMPRESSION 1. Respiratory failure with a history of MRSA pneumonia 2. Status post craniotomy for a subdural hematoma and traumatic brain injury 3. Right rib fractures with history of pneumothorax, resolved 4. Tachycardia Plan : 1 O2 1 L N/C daytime 2. Suction trach prn . 3. Nebs qid , albuterol prn. 4. Cap Trach up to 16 hrs. Trach collar 25 % at HS 5. PT evaluation 6. Tube feeds as ordered. 7. Rehab Placement soon Michela Mohr MD April 04, 2017 19:05
[2017-04-04] MEDS: FAMOTIDINE 20 MG TAB PO SCH (22:57)
[2017-04-04] MEDS: LORazepam 0.5 MG TAB PO SCH (22:57)
--- NOTE | 2017-04-04 23:51 | HHI.PR ---
Subjective Remarks Patient seen today around 3:30 PM. No acute changes per nursing. Mother at bedside. Per nursing, mother is concerned the patient may be in pain due to grimacing, has asked for ibuprofen. Will switch to Tylenol. Objective Vital Signs Date Time Temp Pulse Resp B/P Pulse Ox O2 Delivery O2 Flow Rate FiO2 04/04/17 20:50 97.6 117 16 131/75 97 04/04/17 20:09 100 Nasal Cannula 6.00 28 04/04/17 18:06 18 04/04/17 16:00 98.1 113 20 121/86 97 04/04/17 12:00 96.6 103 20 111/77 98 04/04/17 08:47 100 T-piece 28 04/04/17 08:00 97.5 109 22 138/90 98 04/04/17 08:00 100 Trach Collar 6.00 28 04/04/17 08:00 102 04/04/17 05:30 98.3 107 20 134/87 100 04/04/17 00:24 98 T-piece 6.00 28 04/04/17 00:24 98 T-piece 6.00 28 04/04/17 00:15 98.9 108 20 125/67 99 I/O 04/03/17 04/03/17 04/03/17 04/04/17 04/04/17 04/04/17 07:00 15:00 23:00 07:00 15:00 23:00 Intake Total 0 ml 0 ml 0 ml 890 ml Balance 0 ml 0 ml 0 ml 890 ml Intake Oral 0 ml 0 ml 0 ml Tube Feeding 490 ml Other 400 ml # Voids 1 5 1 2 6 2 # Bowel Movements 0 0 0 0 2 Result Diagram: 04/03/17 1114 04/03/17 1114 Procedures Replacement craniotomy bone flap 03/06/17 Side: Left Objective Remarks GENERAL: Sitting up in bed. Appears comfortable. somnolent. Arousable to stimulation. Nonverbal.follows simple commands. SKIN: Warm and dry. HEAD: Normocephalic. Craniotomystatus post replacement EYES: No scleral icterus. No injection or drainage. NECK: Supple, trachea midline. No JVD.tracheostomy in place. CARDIOVASCULAR: Regular rate and rhythm without murmurs, gallops, or rubs. RESPIRATORY: Breath sounds equal bilaterally. No accessory muscle use. GASTROINTESTINAL: Abdomen soft, non-tender, nondistended. PEG tube in place. no Surrounding erythema. MUSCULOSKELETAL: No cyanosis, or edema. A/P Assessment and Plan //Traumatic brain injury: s/p replacement craniotomy bone flap surgery 03/06/17 Subdural hematoma. Management per neurosurgery Will need assisted care Unlikely to be functional again dilantin and phenobarbital levels are within range. On bromocriptine. Per neurosurgeon patient has hydrocephalus and may need HOME HEALTH CARE RESPIRATORY THERAPIST shunt. Ct scan will be repeat to see if HOME HEALTH CARE RESPIRATORY THERAPIST shunt should be placed. //Leukocytosis -clinically patient is doing well. -she is producing slightly more sputum but oxygenation is the same and clinically stable. -per he does not work further work up at the moment and want to monitor first. -continue to monitor. -04/03. Resolved. No signs of infection. Seizure, breakthrough: Continue Vimpat 50mg BID and Dilantin 150mg Q8H as well as Phenobarbital 65mg BID Neurology ff - Dr. Osiris castellanos. Chronic respiratory failure tracheostomy in place Follow oxygen saturations Pulmonary toilet Pulmonology following Levsin for secretions 03/19 d/w RT- trial of trach capping- LUE/RUE DVT: Lovenox 50mg SQ BID for now Treatment planned for 3 months right now //Multiple pelvic fractures. //Transverse process lumbar fractures Continue physical therapy Continue occupational therapy Continue speech therapy //Sinus tachycardia: Secondary to traumatic brain injury. Continue metoprolol 37.5 mg TID. Continue to monitor heart rate. //Resolved MRSA pneumonia: completed vancomycin on 02/18. . //Tube feeding As per nutrition consult, Continue Jevity 1.5 @ 70 mls/hr (x 18 hrs), held 1 hour before and after Dilantin. -Renal function stable. //GI prophylaxis protection with Prevacid. DVT prevention Lovenox Discharge Planning At the moment [facility] due to possible HOME HEALTH CARE RESPIRATORY THERAPIST shunt placement -will need to be cleared by neurosurgery prior to discharge. Davonet Santana MD April 04, 2017 23:51
[2017-04-05] VITALS (9 sets, daily range): BP systolic 109–126; BP diastolic 58–94; PULSE 107–115; RESP 16–20; TEMP 95.7–99; O2SAT 94–100
[2017-04-05] MEDS: METOPROLOL TARTRATE 25 MG TAB PO SCH ×3 (02:42→17:19)
[2017-04-05] MEDS: RESP: ALBUTEROL 2.5 MG/IPRATROPIUM 0.5 MG NEB (SCH) NEB ×6 (04:03→23:38)
[2017-04-05] MEDS: ARTIFICIAL TEARS OPTH SOLN 15 ML BTL EACH EYE SCH ×4 (05:24→17:18)
[2017-04-05] MEDS: PHENYTOIN SUSP 100 MG/4 ML CUP PEG SCH ×3 (05:24→22:18)
[2017-04-05] MEDS: ENOXAPARIN SODIUM 60 MG/0.6 ML SYRINGE SQ SCH ×2 (05:24→17:19)
[2017-04-05] MEDS: DOCUSATE SODIUM 50 MG/SENNA 8.6 MG TAB PO SCH ×2 (09:02→21:50)
[2017-04-05] MEDS: LACOSAMIDE 50 MG TAB G-TUBE SCH ×2 (09:02→21:49)
[2017-04-05] MEDS: BROMOCRIPTINE MESYLATE 2.5 MG TAB PO SCH ×2 (09:02→22:18)
[2017-04-05] MEDS: PHENobarbital ELIX 20 MG/5 ML CUP PEG SCH ×2 (09:02→21:50)
[2017-04-05] MEDS: LANSOPRAZOLE SOLUTAB 30 MG TAB NG SCH (09:02)
[2017-04-05] MEDS: SODIUM CHLORIDE 0.9% FLUSH 5 ML FLUSH IVF SCH ×2 (09:03→22:18)
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
[2017-04-05] MEDS: FAMOTIDINE 20 MG TAB PO SCH (21:50)
[2017-04-05] MEDS: LORazepam 0.5 MG TAB PO SCH (21:50)
[2017-04-05] MEDS: ACETAMINOPHEN 325 MG TAB PO PRN (21:51)
[2017-04-06] VITALS (11 sets, daily range): BP systolic 113–140; BP diastolic 60–81; PULSE 76–121; RESP 16–20; TEMP 97–99.5; O2SAT 97–100
[2017-04-06] MEDS: METOPROLOL TARTRATE 25 MG TAB PO SCH ×3 (02:39→17:39)
[2017-04-06] MEDS: RESP: ALBUTEROL 2.5 MG/IPRATROPIUM 0.5 MG NEB (SCH) NEB ×6 (04:20→23:50)
[2017-04-06] MEDS: ENOXAPARIN SODIUM 60 MG/0.6 ML SYRINGE SQ SCH ×2 (05:18→17:39)
[2017-04-06] MEDS: PHENYTOIN SUSP 100 MG/4 ML CUP PEG SCH ×3 (05:18→23:51)
[2017-04-06] MEDS: ARTIFICIAL TEARS OPTH SOLN 15 ML BTL EACH EYE SCH ×5 (05:18→23:51)
[2017-04-06] MEDS: PHENobarbital ELIX 20 MG/5 ML CUP PEG SCH ×2 (09:00→23:49)
[2017-04-06] MEDS: LANSOPRAZOLE SOLUTAB 30 MG TAB NG SCH (09:00)
[2017-04-06] MEDS: LACOSAMIDE 50 MG TAB G-TUBE SCH ×2 (09:01→23:48)
[2017-04-06] MEDS: DOCUSATE SODIUM 50 MG/SENNA 8.6 MG TAB PO SCH ×2 (09:01→23:50)
[2017-04-06] MEDS: SODIUM CHLORIDE 0.9% FLUSH 5 ML FLUSH IVF SCH ×2 (09:01→21:00)
[2017-04-06] MEDS: BROMOCRIPTINE MESYLATE 2.5 MG TAB PO SCH ×2 (09:55→23:50)
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
[2017-04-06] MEDS: LORazepam 0.5 MG TAB PO SCH (23:49)
[2017-04-06] MEDS: FAMOTIDINE 20 MG TAB PO SCH (23:50)
[2017-04-07] VITALS (8 sets, daily range): BP systolic 128–160; BP diastolic 69–98; PULSE 103–123; RESP 16–20; TEMP 97.8–99; O2SAT 97–99
[2017-04-07] MEDS: METOPROLOL TARTRATE 25 MG TAB PO SCH ×3 (02:13→16:40)
[2017-04-07] MEDS: RESP: ALBUTEROL 2.5 MG/IPRATROPIUM 0.5 MG NEB (SCH) NEB ×5 (03:22→19:50)
[2017-04-07] MEDS: PHENYTOIN SUSP 100 MG/4 ML CUP PEG SCH ×3 (05:16→21:24)
[2017-04-07] MEDS: ARTIFICIAL TEARS OPTH SOLN 15 ML BTL EACH EYE SCH ×3 (05:16→16:40)
[2017-04-07] MEDS: ENOXAPARIN SODIUM 60 MG/0.6 ML SYRINGE SQ SCH ×2 (05:17→16:40)
[2017-04-07 07:53] LABS: PHENOBARBITAL 22.3 MCG/ML (15.0-40.0)
[2017-04-07] MEDS: SODIUM CHLORIDE 0.9% FLUSH 5 ML FLUSH IVF SCH ×2 (09:00→20:19)
[2017-04-07] MEDS: PHENobarbital ELIX 20 MG/5 ML CUP PEG SCH ×2 (09:03→20:18)
[2017-04-07] MEDS: LANSOPRAZOLE SOLUTAB 30 MG TAB NG SCH (09:03)
[2017-04-07] MEDS: BROMOCRIPTINE MESYLATE 2.5 MG TAB PO SCH ×2 (09:03→20:26)
[2017-04-07] MEDS: DOCUSATE SODIUM 50 MG/SENNA 8.6 MG TAB PO SCH ×2 (09:03→20:18)
[2017-04-07] MEDS: LACOSAMIDE 50 MG TAB G-TUBE SCH ×2 (09:03→20:17)
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
--- NOTE | 2017-04-07 19:59 | HHI.PR ---
Subjective Remarks Awake and stable On T Bar 28 % sat was 99 Objective Vital Signs Date Time Temp Pulse Resp B/P Pulse Ox O2 Delivery O2 Flow Rate FiO2 04/07/17 16:17 98 T-piece 6.00 28 04/07/17 16:00 98.2 105 20 128/70 98 04/07/17 12:00 98.5 103 20 148/98 98 04/07/17 09:16 97 T-piece 5.00 28 04/07/17 09:16 97 T-piece 5.00 28 04/07/17 08:00 98.8 123 20 160/90 98 04/07/17 08:00 119 04/07/17 07:00 98 Trach Collar 6.00 28 04/07/17 04:19 97.8 109 18 141/75 98 04/07/17 00:21 98.1 114 16 130/83 99 04/06/17 20:30 99.5 111 16 124/60 100 04/06/17 20:00 100 T-piece 28 04/06/17 20:00 100 T-piece 28 04/06/17 20:00 100 Trach Collar 6.00 I/O 04/06/17 04/06/17 04/06/17 04/07/17 04/07/17 04/07/17 07:00 15:00 23:00 07:00 15:00 23:00 Intake Total 1563 ml 1748 ml Balance 1563 ml 1748 ml Tube Feeding 1163 ml 1748 ml Other 400 ml # Voids 3 3 2 4 # Bowel Movements 0 1 Result Diagram: 04/03/17 1114 04/03/17 1114 Procedures Replacement craniotomy bone flap 03/06/17 Side: Left Objective Remarks PHYSICAL EXAMINATION GENERAL: Averagely built young white female with no acute distress. HEENT: Head normocephalic. eyes clear. No bruits, no venous distension. Trach in with T bar. CHEST: Equal movements with clear lungs. CARDIAC: Heart sounds are regular. Tachycardic. No murmur. ABDOMEN: Soft and nontender.PEG +. Bowel sounds are active. EXTREMITIES: Weakness of the lower limbs and left side . She is awake and moves her right arm . SKIN:No Lesions. Assessment and Plan Assessment and Plan IMPRESSION 1. Respiratory failure with a history of MRSA pneumonia 2. Status post craniotomy for a subdural hematoma and traumatic brain injury 3. Right rib fractures with history of pneumothorax, resolved 4. Tachycardia Plan : 1 T Bar 28 % 2. Suction trach prn . 3. Nebs qid , albuterol prn. 4. Cap Trach up to 4 hrs. 5. PT evaluation 6. Tube feeds as ordered. 7. Rehab Placement soon Michela Mohr MD April 07, 2017 19:58
[2017-04-07] MEDS: FAMOTIDINE 20 MG TAB PO SCH (20:18)
[2017-04-07] MEDS: LORazepam 0.5 MG TAB PO SCH (20:18)
--- NOTE | 2017-04-07 23:07 | HHI.PR ---
Subjective Remarks Follow up for TBI, chronic respiratory failure, probable hydrocephalus. Ms. Laurent remains non-verbal, sleepy. Does not respond to any verbal communication. is at bedside. Objective Vitals Vital Signs Date Time Temp Pulse Resp B/P Pulse Ox O2 Delivery O2 Flow Rate FiO2 04/07/17 20:19 99.0 111 19 131/69 98 04/07/17 16:17 98 T-piece 6.00 28 04/07/17 16:00 98.2 105 20 128/70 98 04/07/17 12:00 98.5 103 20 148/98 98 04/07/17 09:16 97 T-piece 5.00 28 04/07/17 09:16 97 T-piece 5.00 28 04/07/17 08:00 98.8 123 20 160/90 98 04/07/17 08:00 119 04/07/17 07:00 98 Trach Collar 6.00 28 04/07/17 04:19 97.8 109 18 141/75 98 04/07/17 00:21 98.1 114 16 130/83 99 I/O 04/06/17 04/06/17 04/06/17 04/07/17 04/07/17 04/07/17 07:00 15:00 23:00 07:00 15:00 23:00 Intake Total 1563 ml 1748 ml Balance 1563 ml 1748 ml Tube Feeding 1163 ml 1748 ml Other 400 ml # Voids 3 3 2 4 # Bowel Movements 0 1 Result Diagram: 04/03/17 1114 04/03/17 1114 Imaging Last Impressions Head CT 03/30/17 0000 Signed Impressions: Service Date/Time: Thursday, March 30, 2017 20:20 - CONCLUSION: No evidence of subdural fluid accumulation Paul Bob MD Chest X-Ray 03/26/17 0600 Signed Impressions: Service Date/Time: March 06:42 - CONCLUSION: No acute disease. Ray Lee MD Upper Extremity Ultrasound 03/13/17 0000 Signed Impressions: Service Date/Time: Monday, March 13, 2017 21:49 - CONCLUSION: Acute occlusive thrombus involving the basilic and brachial veins. Jsese Waite Jr., MD Brain MRI 03/06/17 0000 Signed Impressions: Service Date/Time: Monday, March 06, 2017 20:35 - CONCLUSION: Fluid accumulation over the left frontal convexity not well seen or appreciated on CT examination. Mild associated mass effect. Paul Bob MD Objective Remarks GENERAL: Alert, moves her eyes, does not respond to any verbal commands. SKIN: Warm and dry. HEAD: Normocephalic. EYES: No scleral icterus. No injection or drainage. NECK: Supple, trachea midline. No JVD or lymphadenopathy. CARDIOVASCULAR: Regular rhythm, tachycardic without murmurs, gallops, or rubs. RESPIRATORY: Breath sounds equal bilaterally. No accessory muscle use. GASTROINTESTINAL: Abdomen soft, non-tender, nondistended. MUSCULOSKELETAL: No cyanosis, or edema. Procedures Replacement craniotomy bone flap 03/06/17 Side: Left A/P Problem List: (1) Breakthrough seizure ICD Code: G40.919 Status: Chronic (2) Seizure disorder ICD Code: G40.909 Status: Acute (3) Major neurocognitive disorder as late effect of traumatic brain injury without behavioral disturbance ICD Code: S06.9X9S Status: Chronic (4) Closed head injury ICD Code: S09.90XA Status: Acute (5) Subdural hematoma ICD Code: I62.00 Status: Acute (6) Pelvic fracture ICD Code: S32.9XXA Status: Acute (7) Kidney contusion ICD Code: S37.019A Status: Acute (8) Liver laceration ICD Code: S36.113A Status: Acute (9) Trauma ICD Code: T14.90 Status: Acute (10) Sinus tachycardia ICD Code: R00.0 Status: Acute (11) 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 - Management per neurosurgery - Will need jail care - Unlikely to be functional again - Dilantin and phenobarbital levels are within range. - On bromocriptine. - Per neurosurgeon patient has hydrocephalus and may need [employer] shunt. Followed with serial CT. Last CT head on 03/30/2017. - Discussed with Dr. Gibson who indicated that Patient's would like to start rehab in [place] soon and follow up with Neurosurgery in [place]. 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 Pulmonology as well as neurosurgery okay with discharge to rehab. - Will discuss with patient's on 04/08/2017 and plan on discharging her on 04/08/2017. Leukocytosis -clinically patient is doing well. -she is producing slightly more sputum but oxygenation is the same and clinically stable. -per he does not work further work up at the moment and want to monitor first. -continue to monitor. - Leukocytosis resolved. WBC 18.7 --> 8.3 on 04/03/2017. No signs of infection. Seizure, breakthrough: Continue Vimpat 50mg BID and Dilantin 150mg Q8H as well as Phenobarbital 65mg BID Neurology ff - Dr. Newell ff. Chronic respiratory failure tracheostomy in place, cap up to 16 hrs/day Follow oxygen saturations Pulmonary toilet Pulmonology following Levsin for secretions 03/19 d/w RT- trial of trach capping- LUE/RUE DVT: Lovenox 50mg SQ BID for now Treatment planned for 3 months right now Multiple pelvic fractures. Transverse process lumbar fractures Continue physical therapy Continue occupational therapy Continue speech therapy Sinus tachycardia - Heart rate in the 110s. Secondary to traumatic brain injury. Continue metoprolol 37.5 mg TID. Continue to monitor heart rate. Resolved MRSA pneumonia: completed vancomycin on 02/18. . Tube feeding As per nutrition consult, Continue Jevity 1.5 @ 70 mls/hr (x 18 hrs), held 1 hour before and after Dilantin. -Renal function stable. GI prophylaxis protection with Prevacid. Specialist Dr. West Rehab medicine Dr. Naida Kate pulmonary Dr. Gibson neurosurgery DVT prevention Lovenox Problem Qualifiers (1) Pelvic fracture: (2) Deep venous thrombosis of upper extremity: Qualified Code: I82.623 - Acute deep vein thrombosis (DVT) of both upper extremities, unspecified vein Jerry Dior DO April 07, 2017 23:07
[2017-04-08] VITALS (10 sets, daily range): BP systolic 116–168; BP diastolic 69–99; PULSE 106–126; RESP 19–20; TEMP 98.4–99.5; O2SAT 93–100
[2017-04-08] MEDS: RESP: ALBUTEROL 2.5 MG/IPRATROPIUM 0.5 MG NEB (SCH) NEB ×6 (01:03→20:45)
[2017-04-08] MEDS: ARTIFICIAL TEARS OPTH SOLN 15 ML BTL EACH EYE SCH ×4 (01:18→16:35)
[2017-04-08] MEDS: METOPROLOL TARTRATE 25 MG TAB PO SCH ×3 (01:18→16:34)
[2017-04-08] MEDS: PHENYTOIN SUSP 100 MG/4 ML CUP PEG SCH ×3 (05:04→21:16)
[2017-04-08] MEDS: ENOXAPARIN SODIUM 60 MG/0.6 ML SYRINGE SQ SCH ×2 (05:05→16:34)
[2017-04-08] MEDS: LACOSAMIDE 50 MG TAB G-TUBE SCH ×2 (08:22→20:01)
[2017-04-08] MEDS: DOCUSATE SODIUM 50 MG/SENNA 8.6 MG TAB PO SCH ×2 (08:22→20:01)
[2017-04-08] MEDS: PHENobarbital ELIX 20 MG/5 ML CUP PEG SCH ×2 (08:22→20:01)
[2017-04-08] MEDS: BROMOCRIPTINE MESYLATE 2.5 MG TAB PO SCH ×2 (08:23→20:01)
[2017-04-08] MEDS: LANSOPRAZOLE SOLUTAB 30 MG TAB NG SCH (08:32)
[2017-04-08] MEDS: SODIUM CHLORIDE 0.9% FLUSH 5 ML FLUSH IVF SCH ×2 (08:32→20:02)
--- NOTE | 2017-04-08 11:09 | RADRPT ---
EXAM DATE/TIME: 04/08/2017 10:20 [facility] COMPARISON: CHEST SINGLE AP, March 26, 2017, 6:42. INDICATIONS : Tachycardia. MEDICAL HISTORY : Seizures. Tramatic head injury. SDH. Liver laceration. Pelvic fracture. SURGICAL HISTORY : None. ENCOUNTER: Subsequent ACUITY: 1 day PAIN SCORE: Non-responsive. LOCATION: Bilateral chest FINDINGS: A single view of the chest demonstrates the lungs to be symmetrically aerated without evidence of mas s, infiltrate or effusion. The cardiomediastinal contours are unremarkable. Osseous structures are intact. Tracheostomy tube noted. CONCLUSION: No acute disease. Jesse Wiate Jr., MD on April 08, 2017 at 11:07 Board Certified Radiologist. This report was verified electronically.
[2017-04-08] MEDS ORDERED: TEMAZEPAM 7.5 MG CAP PO PRN (11:45)
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
[2017-04-08 13:13] LABS: ALT (GPT) 51 U/L (10-53); ANION GAP 8 MEQ/L (5-15); AST (GOT) 33 U/L (15-37); BICARBONATE 26.1 MEQ/L (21.0-32.0); BLOOD UREA NITROGEN 10 MG/DL (7-18); CHLORIDE 100 MEQ/L (98-107); GLOMERULAR FILTRATION RATE 391 ML/MIN (>89); POTASSIUM 4.1 MEQ/L (3.5-5.1); SODIUM (NA) 134 MEQ/L (136-145)
[2017-04-08 13:15] LABS: ALKALINE PHOSPHATASE 136 U/L (45-117); TOTAL BILIRUBIN ADULT 0.2 MG/DL (0.2-1.0)
--- NOTE | 2017-04-08 17:18 | HHI.NSPN ---
([place]) Note Status Status: Progress Note ([place]) Interval History Interval History Ms. Laurent is a 22 y/o female with a history of TBI 03/05: To OR for: Replacement left craniotomy bone flap Left frontotemporoparietal duraplasty 03/06: POD # 1 replacement craniotomy bone flap 03/07: today mildly opening eyes, however not following commands 03/08: f/u CT Head completed, more awake today 03/09: Patient opens eyes spontaneously but not tracking 03/10: Patient opens eyes to noxious stimuli, Nursing reports she is more responsive to than staff 03/11: Patient transferred to regular med/surg floor 03/12: Eyes open, smiles, still tachycardiac 03/13: Patient drowsy today, minimally follows commands. 03/14/17: Heparin IV started for DVT. CT Head satisfactory 03/16: Patient awake, OT at bedside doing LUE exercises 03/17: Patient sleeping, not responding to verbal stimuli, no apparent distress. Samantha to craniotomy incision removed yesterday. 03/18: Patient awake, follows some commands. 03/19: Patient asleep but awakens to verbal stimuli, follows commands but not consistently. 03/20: Patient awakes, smiles when asked to, follows commands but not consistently, NAD. states she was tachycardiac in the 140s earlier and was given Roxicodone. 03/21: Patient awakes, follows commands but not consistently, no new issues 03/23: Patient is awake, follows some commands inconsistently. states she has been "acting funny" today. 03/25: Patient is asleep when seen. She turns to the sound of this practitioner's voice and flutters her eyelids. She did smile to command but did not follow any other commands. She was seen moving the right leg spontaneously. Her stated Therapy had just worked with her. 03/27: Patient asleep when initially seen this morning and did not respond to verbal stimuli. When seen this afternoon the patient did finally start to flutter her eyes and smile upon command after being coaxed. She was noted to spontaneously move the RUE & BLE. She did move the BLE to noxious stimuli applied to the LUE. It was difficult to tell if she did attempt to wiggle the toes to command because she would move her feet. 03/30: Patient asleep when seen. No response to verbal stimuli initially. Did not follow any commands. Did have facial grimace to noxious stimuli to BUE & RLE but withdrew to LLE. She did smile to verbal stimuli as this practitioner was finishing examining her. 03/31: The patient was asleep but did response to verbal coaxing to smile and stick her tongue out. A CT brain yesterday was concerning for development of hydrocephalus. The known left frontal fluid collection was not evident. 04/01: The patient was asleep but responded to verbal to verbal stimuli. 04/03: The patient was asleep but with much coaxing did wake up and follow some commands. 04/06: The patient was asleep when seen. She did not wake up to verbal stimuli. She did withdraw the RLE and flex the RUE to noxious stimuli. It is difficult to ascertain for certain if she had any facial grimace to noxious stimuli of the extremities. 04/08: Patient asleep but opens her eyes to verbal stimuli with coaxing. She did smile and move the RLE to command. She flexed the RUE and withdrew the left foot to noxious stimuli. ([place]) Labs, Micro, & Vital Signs Results Allergies Coded Allergies Type Severity Reaction Last Updated Verified No Known Allergies 12/15/16 No Recent Impressions Chest X-Ray 04/08/17 0000 Signed Impressions: Service Date/Time: Saturday, April 08, 2017 10:20 - CONCLUSION: No acute disease. Jesse Waite Jr., MD ///// 06:00 18:00 06:00 18:00 06:00 18:00 Intake Total 1563 ml 1748 ml 2621 ml Balance 1563 ml 1748 ml 2621 ml Tube Feeding 1163 ml 1748 ml 2021 ml Other 400 ml 600 ml # Voids 3 3 2 4 2 2 # Bowel Movements 0 1 1 Laboratory Tests Test 04/07/17 04/08/17 06:23 12:25 Phenytoin (Dilantin) Level 16.6 MCG/ML Phenobarbital Level 22.3 MCG/ML Sodium Level 134 MEQ/L Potassium Level 4.1 MEQ/L Chloride Level 100 MEQ/L Carbon Dioxide Level 26.1 MEQ/L Anion Gap 8 MEQ/L Blood Urea Nitrogen 10 MG/DL Creatinine 0.22 MG/DL Estimat Glomerular Filtration 391 ML/MIN Rate Random Glucose 101 MG/DL Calcium Level 9.7 MG/DL Total Bilirubin 0.2 MG/DL Aspartate Amino Transf 33 U/L (AST/SGOT) Alanine Aminotransferase 51 U/L (ALT/SGPT) Alkaline Phosphatase 136 U/L Total Protein 7.0 GM/DL Albumin 3.3 GM/DL Constitutional Vital Signs Date Time Temp Pulse Resp B/P Pulse Ox O2 Delivery O2 Flow Rate FiO2 04/08/17 12:19 99.2 115 20 142/90 99 04/08/17 08:23 98.8 126 20 168/98 100 04/08/17 08:00 117 04/08/17 07:49 100 T-piece 6.00 28 04/08/17 07:00 99 Trach Collar 6.00 28 04/08/17 05:39 98.4 111 19 148/99 93 04/08/17 01:08 94 T-piece 28 04/08/17 00:58 98.8 126 19 159/97 98 04/07/17 20:19 99.0 111 19 131/69 98 04/07/17 20:00 100 Trach Collar 6.00 28 04/08/17 07:00 Intake Total 2908 ml Balance 2908 ml ([place]) Review of Systems/Exam ROS Unable to obtain ROS due to patient's mental status. Exam HEENT: Surgical incision well approximated w/o any evident drainage, erythema or streaking. Resp: Essentially clear bilaterally, equal excursion, non-laboured, on trach collar. CV: RRR w/o M/G/R but fast, cap refill < 2 sec, radial & pedal pulses 2+ bilaterally, no pedal edema. GI: Abdomen soft & nontender, bowel sounds present. Enteral feeds by PEG. Neuro: Asleep, opens eyes to repeated verbal stimuli. Smiles to commands with coaxing. She did spontaneously move the RLE to command. She flexed the RUE and withdrew the left foot to noxious stimuli but no response with the LUE. ([place]) Medications Current Medications Current Medications Medications (Trade) Dose Ordered Sig/Raji Route Start Time Stop Time Status Last Admin (Tylenol) 650 mg Q4H PRN PO 02/17/17 00:30 04/05/17 21:51 (Milk Of Magnesia Liq) 30 ml Q12H PRN PO 02/17/17 00:30 (Narcan Inj) 0.4 mg UNSCH PRN IV 02/17/17 00:30 Miscellaneous Information Patient in critical care unit? Ass... Q361D XX 02/17/17 04:15 02/17/17 04:15 (Parlodel) 2.5 mg Q12HR PO 02/17/17 21:00 04/08/17 08:23 (Pepcid) 20 mg HS PO 02/17/17 21:00 04/07/17 20:18 (Levsin) 0.125 mg Q4H PRN PO 02/17/17 11:15 (Malu-Colace) 1 tab BID PO 02/17/17 21:00 04/08/17 08:22 (Lactulose Liq) 30 ml DAILY PRN PO 02/19/17 07:30 (Prevacid Odt) 30 mg DAILY NG 02/19/17 09:00 04/08/17 08:32 (Tears Naturale Opth Soln) 1 drop Q6HR EACH EYE 02/22/17 19:00 04/08/17 16:35 (Vimpat) 50 mg BID G-TUBE 02/25/17 09:00 04/08/17 08:22 (Pill Splitter) 1 ea UNSCH PRN OTHER 03/01/17 23:45 (NS Flush) 2 ml UNSCH PRN IVF 03/05/17 18:00 (NS Flush) 2 ml BID IVF 03/05/17 21:00 04/08/17 08:32 (Lovenox Inj) 50 mg Q12H SQ 03/14/17 18:00 04/08/17 16:34 (PHENobarbital LIQ) 60 mg Q12HR PEG 03/16/17 21:00 04/08/17 08:22 (Dilantin Liq) 150 mg Q8HR PEG 03/16/17 22:00 04/08/17 13:10 (Zofran Odt) 4 mg Q6H PRN PO 03/16/17 21:00 (Dulcolax Supp) 10 mg DAILY PRN RECTAL 03/28/17 10:30 (Lopressor) 37.5 mg Q8H PO 03/29/17 18:00 04/08/17 16:34 (Desyrel) 25 mg HS PO 04/08/17 21:00 (Symmetrel) 100 mg DAILY@07 PO 04/09/17 07:00 (Dorothy 7.5-325 Mg) 1 tab Q6H PRN PEG 04/08/17 12:00 ([place]) Medical Decision Making MDM Remarks 22 y/o female with a history of TBI POD # 34 s/p craniotomy for bone flap replacement Neurological function appears stable although she does have inconsistent responses Upper extremity venous thrombosis Probable hydrocephalus developing vs brain atrophy on CT brain CXR unremarkable today Mild hyponatremia ([place]) Plan Plan Remarks Continue neuro checks Continue anticonvulsants per Neurology Continue heparin drip for upper extremity DVT Continue mechanical DVT prophylaxis Primary management & HR mgmt per Hospitalist Per she has been accepted at [facility] for rehab but is waiting for Pulmonology clearance. would prefer IT SENIOR ANALYST shunt be done in [place] Will consider CT brain next week ([place]) Attending Statement I have personally seen and examined the patient on the date of this note. Pertinent documentation and study results have been reviewed by the undersigned. I have personally developed the treatment plan and performed medical decision making. Agree with findings, exam, and treatment plan as noted above. No overall change in neurologic function over the past week It is felt to the patient would benefit from ventriculoperitoneal shunt. The patient's has expressed his desire to proceed with placement at inpatient rehabilitation with neurosurgery follow-up in [place] as needed for possible shunt placement as he does not want to delay the discharge. (Victor Hugo Gibson MD) [place] April 08, 2017 17:17 Victor Hugo Gibson MD April 08, 2017 20:24
--- NOTE | 2017-04-08 19:05 | HHI.PR ---
Subjective Remarks Remains stable On T Bar 28 % sat was 98. No secretions and needs suction only once a day Objective Vital Signs Date Time Temp Pulse Resp B/P Pulse Ox O2 Delivery O2 Flow Rate FiO2 04/08/17 16:00 99.5 117 20 137/76 98 04/08/17 12:19 99.2 115 20 142/90 99 04/08/17 08:23 98.8 126 20 168/98 100 04/08/17 08:00 117 04/08/17 07:49 100 T-piece 6.00 28 04/08/17 07:00 99 Trach Collar 6.00 28 04/08/17 05:39 98.4 111 19 148/99 93 04/08/17 01:08 94 T-piece 28 04/08/17 00:58 98.8 126 19 159/97 98 04/07/17 20:19 99.0 111 19 131/69 98 04/07/17 20:00 100 Trach Collar 6.00 28 I/O 04/07/17 04/07/17 04/07/17 04/08/17 04/08/17 04/08/17 07:00 15:00 23:00 07:00 15:00 23:00 Intake Total 1748 ml 1160 ml 1461 ml Balance 1748 ml 1160 ml 1461 ml Tube Feeding 1748 ml 560 ml 1461 ml Other 600 ml # Voids 2 4 2 2 # Bowel Movements 0 1 1 Result Diagram: 04/08/17 1225 Procedures Replacement craniotomy bone flap 03/06/17 Side: Left Objective Remarks PHYSICAL EXAMINATION GENERAL: Averagely built young white female with no acute distress. HEENT: Head normocephalic. eyes clear. No bruits, no venous distension. Trach in with T bar. CHEST: Equal movements with clear lungs. CARDIAC: Heart sounds are regular. Tachycardic. No murmur. ABDOMEN: Soft and nontender.PEG +. Bowel sounds are active. EXTREMITIES: Weakness of the lower limbs and left side . She is lethargic SKIN:No Lesions. Assessment and Plan Assessment and Plan IMPRESSION 1. Respiratory failure with a history of MRSA pneumonia 2. Status post craniotomy for a subdural hematoma and traumatic brain injury 3. Right rib fractures with history of pneumothorax, resolved 4. Tachycardia Plan : 1 T Bar 28 % 2. Suction trach prn . 3. Nebs qid , albuterol prn. 4. Cap Trach up to 4 hrs. daily. 5. PT evaluation 6. Tube feeds as ordered. 7. Rehab Placement soon Michela Mohr MD April 08, 2017 19:05
[2017-04-08] MEDS: FAMOTIDINE 20 MG TAB PO SCH (20:01)
[2017-04-08] MEDS: traZODone HCL 50 MG TAB PO SCH (20:01)
[2017-04-09] VITALS (11 sets, daily range): BP systolic 120–139; BP diastolic 56–94; PULSE 89–121; RESP 20; TEMP 97.5–99.3; O2SAT 96–100
[2017-04-09] MEDS: RESP: ALBUTEROL 2.5 MG/IPRATROPIUM 0.5 MG NEB (SCH) NEB ×6 (00:07→19:06)
[2017-04-09] MEDS: METOPROLOL TARTRATE 25 MG TAB PO SCH ×3 (01:29→17:07)
[2017-04-09] MEDS: ARTIFICIAL TEARS OPTH SOLN 15 ML BTL EACH EYE SCH ×4 (01:29→17:07)
[2017-04-09] MEDS: ENOXAPARIN SODIUM 60 MG/0.6 ML SYRINGE SQ SCH ×2 (05:14→17:08)
[2017-04-09] MEDS: PHENYTOIN SUSP 100 MG/4 ML CUP PEG SCH ×3 (05:14→21:03)
[2017-04-09] MEDS: AMANTADINE HCL 100 MG CAP PO SCH (06:12)
[2017-04-09] MEDS: LACOSAMIDE 50 MG TAB G-TUBE SCH ×2 (09:01→21:02)
[2017-04-09] MEDS: SODIUM CHLORIDE 0.9% FLUSH 5 ML FLUSH IVF SCH ×2 (09:02→21:03)
[2017-04-09] MEDS: BROMOCRIPTINE MESYLATE 2.5 MG TAB PO SCH ×2 (09:02→21:02)
[2017-04-09] MEDS: DOCUSATE SODIUM 50 MG/SENNA 8.6 MG TAB PO SCH ×2 (09:02→21:02)
[2017-04-09] MEDS: LANSOPRAZOLE SOLUTAB 30 MG TAB NG SCH (09:02)
[2017-04-09] MEDS: PHENobarbital ELIX 20 MG/5 ML CUP PEG SCH ×2 (09:02→21:01)
--- NOTE | 2017-04-09 13:00 | HHI.PR ---
Subjective Remarks Late entry for 04/08/2017. Follow up for TBI, chronic respiratory failure, probable hydrocephalus. Patient remains nonverbal and drowsy. at bedside. No acute concerns. Objective Vitals Vital Signs Date Time Temp Pulse Resp B/P Pulse Ox O2 Delivery O2 Flow Rate FiO2 04/09/17 12:00 99.2 89 20 126/56 96 04/09/17 09:05 T-Piece 04/09/17 08:40 100 T-piece 28 04/09/17 08:40 100 T-piece 28 04/09/17 07:30 98.0 103 20 139/82 100 04/09/17 04:00 98.5 112 20 125/73 100 04/09/17 03:32 100 T-piece 6.00 28 04/09/17 00:11 100 T-piece 6.00 28 04/09/17 00:00 99.3 121 20 138/88 99 04/08/17 20:45 100 T-piece 6.00 28 04/08/17 20:45 100 T-piece 6.00 28 04/08/17 20:05 98.5 106 20 116/69 100 04/08/17 20:00 100 Trach Collar 6.00 28 04/08/17 16:00 99.5 117 20 137/76 98 I/O 04/08/17 04/08/17 04/08/17 04/09/17 04/09/17 04/09/17 07:00 15:00 23:00 07:00 15:00 23:00 Intake Total 1160 ml 1461 ml Balance 1160 ml 1461 ml Tube Feeding 560 ml 1461 ml Other 600 ml # Voids 2 2 0 1 # Bowel Movements 1 2 0 Result Diagram: 04/08/17 1225 Objective Remarks GENERAL: Alert, moves her eyes, does not respond to any verbal commands. SKIN: Warm and dry. HEAD: Normocephalic. EYES: No scleral icterus. No injection or drainage. NECK: Supple, trachea midline. No JVD or lymphadenopathy. CARDIOVASCULAR: Regular rhythm, tachycardic without murmurs, gallops, or rubs. RESPIRATORY: Breath sounds equal bilaterally. No accessory muscle use. GASTROINTESTINAL: Abdomen soft, non-tender, nondistended. MUSCULOSKELETAL: No cyanosis, or edema. Procedures Replacement craniotomy bone flap 03/06/17 Side: Left A/P Problem List: (1) Breakthrough seizure ICD Code: G40.919 Status: Chronic (2) Seizure disorder ICD Code: G40.909 Status: Acute (3) Major neurocognitive disorder as late effect of traumatic brain injury without behavioral disturbance ICD Code: S06.9X9S Status: Chronic (4) Closed head injury ICD Code: S09.90XA Status: Acute (5) Subdural hematoma ICD Code: I62.00 Status: Acute (6) Pelvic fracture ICD Code: S32.9XXA Status: Acute (7) Kidney contusion ICD Code: S37.019A Status: Acute (8) Liver laceration ICD Code: S36.113A Status: Acute (9) Trauma ICD Code: T14.90 Status: Acute (10) Sinus tachycardia ICD Code: R00.0 Status: Acute (11) 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 - Management per neurosurgery - Will need retirement care - Unlikely to be functional again - Dilantin and phenobarbital levels are within range. - On bromocriptine. - Per neurosurgeon patient has hydrocephalus and may need CLINICAL INSTRUCTOR shunt. Followed with serial CT. Last CT head on 03/30/2017. - Discussed with Dr. Gibson who indicated that Patient's would like to start rehab in [place] soon and follow up with Neurosurgery in [place]. Patient may need CLINICAL INSTRUCTOR shunt. Pulmonology as well as neurosurgery okay with discharge to rehab. - Will discuss with patient's on 04/08/2017 and plan on discharging her on 04/08/2017. - Daytime drowsiness - will start patient on Restoril at night. Leukocytosis -clinically patient is doing well. -she is producing slightly more sputum but oxygenation is the same and clinically stable. -per he does not work further work up at the moment and want to monitor first. -continue to monitor. - Leukocytosis resolved. WBC 18.7 --> 8.3 on 04/03/2017. No signs of infection. Seizure, breakthrough: Continue Vimpat 50mg BID and Dilantin 150mg Q8H as well as Phenobarbital 65mg BID Neurology ff - Dr. Osiris castellanos. Chronic respiratory failure tracheostomy in place, cap up to 16 hrs/day Follow oxygen saturations Pulmonary toilet Pulmonology following Levsin for secretions 03/19 d/w RT- trial of trach capping- LUE/RUE DVT: Lovenox 50mg SQ BID for now Treatment planned for 3 months right now Multiple pelvic fractures. Transverse process lumbar fractures Continue physical therapy Continue occupational therapy Continue speech therapy Sinus tachycardia - Heart rate in the 110s. Secondary to traumatic brain injury. Continue metoprolol 37.5 mg TID. Continue to monitor heart rate. Resolved MRSA pneumonia: completed vancomycin on 02/18. . Tube feeding As per nutrition consult, Continue Jevity 1.5 @ 70 mls/hr (x 18 hrs), held 1 hour before and after Dilantin. -Renal function stable. GI prophylaxis protection with Prevacid. Specialist Dr. West Rehab medicine Dr. Naida Kate pulmonary Dr. Gibson neurosurgery DVT prevention Lovenox Problem Qualifiers (1) Pelvic fracture: (2) Deep venous thrombosis of upper extremity: Qualified Code: I82.623 - Acute deep vein thrombosis (DVT) of both upper extremities, unspecified vein Jerry Dior DO April 09, 2017 13:00
--- NOTE | 2017-04-09 13:03 | HHI.PR ---
Subjective Remarks Follow up for TBI, chronic respiratory failure, probable hydrocephalus. is at bedside. Agent is somewhat alert but still drowsy. Nonverbal. Objective Vitals Vital Signs Date Time Temp Pulse Resp B/P Pulse Ox O2 Delivery O2 Flow Rate FiO2 04/09/17 12:00 99.2 89 20 126/56 96 04/09/17 09:05 T-Piece 04/09/17 08:40 100 T-piece 28 04/09/17 08:40 100 T-piece 28 04/09/17 07:30 98.0 103 20 139/82 100 04/09/17 04:00 98.5 112 20 125/73 100 04/09/17 03:32 100 T-piece 6.00 28 04/09/17 00:11 100 T-piece 6.00 28 04/09/17 00:00 99.3 121 20 138/88 99 04/08/17 20:45 100 T-piece 6.00 28 04/08/17 20:45 100 T-piece 6.00 28 04/08/17 20:05 98.5 106 20 116/69 100 04/08/17 20:00 100 Trach Collar 6.00 28 04/08/17 16:00 99.5 117 20 137/76 98 I/O 04/08/17 04/08/17 04/08/17 04/09/17 04/09/17 04/09/17 07:00 15:00 23:00 07:00 15:00 23:00 Intake Total 1160 ml 1461 ml Balance 1160 ml 1461 ml Tube Feeding 560 ml 1461 ml Other 600 ml # Voids 2 2 0 1 # Bowel Movements 1 2 0 Result Diagram: 04/08/17 1225 Imaging Last Impressions Chest X-Ray 04/08/17 0000 Signed Impressions: Service Date/Time: Saturday, April 08, 2017 10:20 - CONCLUSION: No acute disease. Jesse Waite Jr., MD Head CT 03/30/17 0000 Signed Impressions: Service Date/Time: Thursday, March 30, 2017 20:20 - CONCLUSION: No evidence of subdural fluid accumulation Paul Bob MD Upper Extremity Ultrasound 03/13/17 0000 Signed Impressions: Service Date/Time: Monday, March 13, 2017 21:49 - CONCLUSION: Acute occlusive thrombus involving the basilic and brachial veins. Jesse Waite Jr., MD Brain MRI 03/06/17 0000 Signed Impressions: Service Date/Time: Monday, March 06, 2017 20:35 - CONCLUSION: Fluid accumulation over the left frontal convexity not well seen or appreciated on CT examination. Mild associated mass effect. Paul Bob MD Objective Remarks GENERAL: Alert, moves her eyes, does not respond to any verbal commands. SKIN: Warm and dry. HEAD: Normocephalic. EYES: No scleral icterus. No injection or drainage. NECK: Supple, trachea midline. No JVD or lymphadenopathy. CARDIOVASCULAR: Regular rhythm, tachycardic without murmurs, gallops, or rubs. RESPIRATORY: Breath sounds equal bilaterally. No accessory muscle use. GASTROINTESTINAL: Abdomen soft, non-tender, nondistended. MUSCULOSKELETAL: No cyanosis, or edema. Procedures Replacement craniotomy bone flap 03/06/17 Side: Left A/P Problem List: (1) Breakthrough seizure ICD Code: G40.919 Status: Chronic (2) Seizure disorder ICD Code: G40.909 Status: Acute (3) Major neurocognitive disorder as late effect of traumatic brain injury without behavioral disturbance ICD Code: S06.9X9S Status: Chronic (4) Closed head injury ICD Code: S09.90XA Status: Acute (5) Subdural hematoma ICD Code: I62.00 Status: Acute (6) Pelvic fracture ICD Code: S32.9XXA Status: Acute (7) Kidney contusion ICD Code: S37.019A Status: Acute (8) Liver laceration ICD Code: S36.113A Status: Acute (9) Trauma ICD Code: T14.90 Status: Acute (10) Sinus tachycardia ICD Code: R00.0 Status: Acute (11) 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 - Management per neurosurgery - Will need nursing home care - Unlikely to be functional again - Dilantin and phenobarbital levels are within range. - On bromocriptine. - Per neurosurgeon patient has hydrocephalus and may need CHEMICAL RADIATION TECHNICIAN shunt. Followed with serial CT. Last CT head on 03/30/2017. - Case management discussed with [facility] rehabilitation. Apparently rehabilitation will not accept this patient unless CHEMICAL RADIATION TECHNICIAN shunt displaced. - I discussed with patient's as well as Dr. Gibson regarding CHEMICAL RADIATION TECHNICIAN shunt placement. - Daytime drowsiness - currently on trazodone 25 mg by mouth daily at bedtime and amantadine 100 mg by mouth daily. Leukocytosis -clinically patient is doing well. -she is producing slightly more sputum but oxygenation is the same and clinically stable. -per he does not work further work up at the moment and want to monitor first. -continue to monitor. - Leukocytosis resolved. WBC 18.7 --> 8.3 on 04/03/2017. No signs of infection. Seizure, breakthrough: Continue Vimpat 50mg BID and Dilantin 150mg Q8H as well as Phenobarbital 65mg BID Neurology ff - Dr. Newell ff. Chronic respiratory failure tracheostomy in place, cap up to 16 hrs/day Follow oxygen saturations Pulmonary toilet Pulmonology following Levsin for secretions 03/19 d/w RT- trial of trach capping- LUE/RUE DVT: Lovenox 50mg SQ BID for now Treatment planned for 3 months right now Multiple pelvic fractures. Transverse process lumbar fractures Continue physical therapy Continue occupational therapy Continue speech therapy Sinus tachycardia - Heart rate in the 110s. Secondary to traumatic brain injury. Continue metoprolol 37.5 mg TID. Continue to monitor heart rate. Resolved MRSA pneumonia: completed vancomycin on 02/18. . Tube feeding As per nutrition consult, Continue Jevity 1.5 @ 70 mls/hr (x 18 hrs), held 1 hour before and after Dilantin. -Renal function stable. GI prophylaxis protection with Prevacid. Specialist Dr. West Rehab medicine Dr. Naida Kate pulmonary Dr. Gibson neurosurgery DVT prevention Lovenox Problem Qualifiers (1) Pelvic fracture: (2) Deep venous thrombosis of upper extremity: Qualified Code: I82.623 - Acute deep vein thrombosis (DVT) of both upper extremities, unspecified vein Jerry Dior DO April 09, 2017 13:02
--- NOTE | 2017-04-09 18:35 | HHI.PR ---
Subjective Remarks Trach capped and doing well.. Few trach secretions . Moves arm. Objective Vital Signs Date Time Temp Pulse Resp B/P Pulse Ox O2 Delivery O2 Flow Rate FiO2 04/09/17 15:56 98 T-piece 6.00 28 04/09/17 15:52 98 T-piece 6.00 28 04/09/17 15:50 98.3 109 20 136/94 100 04/09/17 12:00 99.2 89 20 126/56 96 04/09/17 09:05 T-Piece 04/09/17 08:40 100 T-piece 28 04/09/17 08:40 100 T-piece 28 04/09/17 07:30 98.0 103 20 139/82 100 04/09/17 04:00 98.5 112 20 125/73 100 04/09/17 03:32 100 T-piece 6.00 28 04/09/17 00:11 100 T-piece 6.00 28 04/09/17 00:00 99.3 121 20 138/88 99 04/08/17 20:45 100 T-piece 6.00 28 04/08/17 20:45 100 T-piece 6.00 28 04/08/17 20:05 98.5 106 20 116/69 100 04/08/17 20:00 100 Trach Collar 6.00 28 I/O 04/08/17 04/08/17 04/08/17 04/09/17 04/09/17 04/09/17 07:00 15:00 23:00 07:00 15:00 23:00 Intake Total 1160 ml 1461 ml Balance 1160 ml 1461 ml Tube Feeding 560 ml 1461 ml Other 600 ml # Voids 2 2 0 1 7 # Bowel Movements 1 2 0 4 Result Diagram: 04/08/17 1225 Procedures Replacement craniotomy bone flap 03/06/17 Side: Left Objective Remarks PHYSICAL EXAMINATION GENERAL: Averagely built young white female with no acute distress. HEENT: Head normocephalic. eyes clear. No bruits, no venous distension. Trach in . CHEST: Equal movements with clear lungs. CARDIAC: Heart sounds are regular. Tachycardic. No murmur. ABDOMEN: Soft and nontender.PEG +. Bowel sounds are active. EXTREMITIES: Weakness of the lower limbs and left side . She is lethargic SKIN:No Lesions. Assessment and Plan Assessment and Plan IMPRESSION 1. Respiratory failure with a history of MRSA pneumonia 2. Status post craniotomy for a subdural hematoma and traumatic brain injury 3. Right rib fractures with history of pneumothorax, resolved 4. Tachycardia Plan : 1 T Bar 28 % at HS 2. Suction trach prn . 3. Nebs qid , albuterol prn. 4. Cap Trach up to 8 hrs. daily. 5. PT evaluation 6. Tube feeds as ordered. 7. Waiting on WOODYARD CRANE OPERATOR shunt Michela Mohr MD April 09, 2017 18:35
--- NOTE | 2017-04-09 20:17 | HHI.NSPN ---
History Interval History 03/06/17: Replacement craniotomy bone flap 03/14/17: Heparin IV started for DVT. CT Head satisfactory Exam Results Vital Signs Date Time Temp Pulse Resp B/P Pulse Ox O2 Delivery O2 Flow Rate FiO2 04/09/17 15:56 98 T-piece 6.00 28 04/09/17 15:50 98.3 109 20 136/94 Intake and Output 04/08/17 04/08/17 04/09/17 08:00 16:00 00:00 Intake Total 1160 ml 1461 ml Balance 1160 ml 1461 ml Physical Examination HEENT: Surgical incision well approximated w/o any evident drainage, erythema or streaking. Resp: Essentially clear bilaterally, equal excursion, non-laboured, on trach collar. CV: RRR w/o M/G/R but fast, cap refill < 2 sec, radial & pedal pulses 2+ bilaterally, no pedal edema. GI: Abdomen soft & nontender, bowel sounds present. Enteral feeds by PEG. Neuro: She is quite awake and alert this evening. Tracts to the right and left intermittently. Has semipurposeful movement of the right upper extremity. Medical Decision Making Impression and Plan Impression: 1. Stable neurologic exam status post placement craniotomy bone flap. Postoperative CT scan head 03/06/17 satisfactory 2. Upper extremity venous thrombosis Plan: I discussed the patient with nursing staff this evening. They indicate that the family has stepped out to get dinner. I will review the treatment options again with them in the morning. A message was sent today in regards to the rehabilitation facility in [place] requesting ventricular peritoneal shunt placement prior to transfer. We will discuss further with the family. Initial plans for shunt placement were previously held per the family request. Victor Hugo Gibson MD April 09, 2017 20:16
[2017-04-09] MEDS: traZODone HCL 50 MG TAB PO SCH (21:02)
[2017-04-09] MEDS: FAMOTIDINE 20 MG TAB PO SCH (21:03)
[2017-04-10] VITALS (11 sets, daily range): BP systolic 102–144; BP diastolic 50–84; PULSE 98–115; RESP 14–20; TEMP 96.9–99.1; O2SAT 94–100
[2017-04-10] MEDS: ARTIFICIAL TEARS OPTH SOLN 15 ML BTL EACH EYE SCH ×4 (00:21→17:11)
[2017-04-10] MEDS: RESP: ALBUTEROL 2.5 MG/IPRATROPIUM 0.5 MG NEB (SCH) NEB ×6 (00:34→22:34)
[2017-04-10] MEDS: METOPROLOL TARTRATE 25 MG TAB PO SCH ×3 (02:40→17:10)
[2017-04-10] MEDS: AMANTADINE HCL 100 MG CAP PO SCH (06:35)
[2017-04-10] MEDS: ENOXAPARIN SODIUM 60 MG/0.6 ML SYRINGE SQ SCH ×2 (06:35→17:10)
[2017-04-10] MEDS: PHENYTOIN SUSP 100 MG/4 ML CUP PEG SCH ×3 (06:35→21:10)
[2017-04-10] MEDS: SODIUM CHLORIDE 0.9% FLUSH 5 ML FLUSH IVF SCH ×2 (09:00→21:12)
[2017-04-10] MEDS: LACOSAMIDE 50 MG TAB G-TUBE SCH ×2 (09:30→21:11)
[2017-04-10] MEDS: LANSOPRAZOLE SOLUTAB 30 MG TAB NG SCH (09:30)
[2017-04-10] MEDS: DOCUSATE SODIUM 50 MG/SENNA 8.6 MG TAB PO SCH ×2 (09:30→21:11)
[2017-04-10] MEDS: PHENobarbital ELIX 20 MG/5 ML CUP PEG SCH ×2 (09:31→21:11)
[2017-04-10] MEDS: BROMOCRIPTINE MESYLATE 2.5 MG TAB PO SCH ×2 (09:31→21:11)
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
--- NOTE | 2017-04-10 11:54 | HHI.NSPN ---
([place]) Note Status Status: Progress Note ([place]) Interval History Interval History Ms. Laurent is a 22 y/o female with a history of TBI 03/05: To OR for: Replacement left craniotomy bone flap Left frontotemporoparietal duraplasty 03/06: POD # 1 replacement craniotomy bone flap 03/07: today mildly opening eyes, however not following commands 03/08: f/u CT Head completed, more awake today 03/09: Patient opens eyes spontaneously but not tracking 03/10: Patient opens eyes to noxious stimuli, Nursing reports she is more responsive to than staff 03/11: Patient transferred to regular med/surg floor 03/12: Eyes open, smiles, still tachycardiac 03/13: Patient drowsy today, minimally follows commands. 03/14/17: Heparin IV started for DVT. CT Head satisfactory 03/16: Patient awake, OT at bedside doing LUE exercises 03/17: Patient sleeping, not responding to verbal stimuli, no apparent distress. Samantha to craniotomy incision removed yesterday. 03/18: Patient awake, follows some commands. 03/19: Patient asleep but awakens to verbal stimuli, follows commands but not consistently. 03/20: Patient awakes, smiles when asked to, follows commands but not consistently, NAD. states she was tachycardiac in the 140s earlier and was given Roxicodone. 03/21: Patient awakes, follows commands but not consistently, no new issues 03/23: Patient is awake, follows some commands inconsistently. states she has been "acting funny" today. 03/25: Patient is asleep when seen. She turns to the sound of this practitioner's voice and flutters her eyelids. She did smile to command but did not follow any other commands. She was seen moving the right leg spontaneously. Her stated Therapy had just worked with her. 03/27: Patient asleep when initially seen this morning and did not respond to verbal stimuli. When seen this afternoon the patient did finally start to flutter her eyes and smile upon command after being coaxed. She was noted to spontaneously move the RUE & BLE. She did move the BLE to noxious stimuli applied to the LUE. It was difficult to tell if she did attempt to wiggle the toes to command because she would move her feet. 03/30: Patient asleep when seen. No response to verbal stimuli initially. Did not follow any commands. Did have facial grimace to noxious stimuli to BUE & RLE but withdrew to LLE. She did smile to verbal stimuli as this practitioner was finishing examining her. 03/31: The patient was asleep but did response to verbal coaxing to smile and stick her tongue out. A CT brain yesterday was concerning for development of hydrocephalus. The known left frontal fluid collection was not evident. 04/01: The patient was asleep but responded to verbal to verbal stimuli. 04/03: The patient was asleep but with much coaxing did wake up and follow some commands. 04/06: The patient was asleep when seen. She did not wake up to verbal stimuli. She did withdraw the RLE and flex the RUE to noxious stimuli. It is difficult to ascertain for certain if she had any facial grimace to noxious stimuli of the extremities. 04/08: Patient asleep but opens her eyes to verbal stimuli with coaxing. She did smile and move the RLE to command. She flexed the RUE and withdrew the left foot to noxious stimuli. 04/09: Patient with eyes closed but did open to verbal stimuli with coaxing. She smiled and stuck out her tongue as well with coaxing. She is spontaneously moving the RLE but nonpurposefully. ([place]) Labs, Micro, & Vital Signs Constitutional Vital Signs Date Time Temp Pulse Resp B/P Pulse Ox O2 Delivery O2 Flow Rate FiO2 04/10/17 11:40 100 Nasal Cannula 2.00 04/10/17 10:35 115 04/10/17 09:28 144/82 04/10/17 08:40 100 T-piece 28 04/10/17 08:40 100 T-piece 25 04/10/17 07:50 99.1 107 14 102/50 94 04/10/17 04:00 98.0 114 20 143/63 97 04/10/17 00:00 98.5 100 18 121/81 95 04/09/17 20:00 97.5 110 20 120/74 100 04/09/17 15:56 98 T-piece 6.00 28 04/09/17 15:52 98 T-piece 6.00 28 04/09/17 15:50 98.3 109 20 136/94 100 04/09/17 12:00 99.2 89 20 126/56 96 ([place]) Review of Systems/Exam ROS Unable to obtain ROS due to patient's mental status. Exam HEENT: Surgical incision well approximated w/o any evident drainage, erythema or streaking. Resp: Slightly coarse bilaterally but seems referred from upper airway, equal excursion, non-laboured, trached w/cap on. CV: RRR w/o M/G/R but fast, cap refill < 2 sec, radial & pedal pulses 2+ bilaterally, no pedal edema. GI: Abdomen soft & nontender, bowel sounds present. Enteral feeds by PEG. Neuro: Opens eyes to verbal stimuli with coaxing. Smiles and sticks tongue out with coaxing. Spontaneously moving RLE. Withdraws RUE to noxious stimuli. Grimaces face with noxious stimuli to LLE. No evident response to noxious stimuli to LUE. ([place]) Medications Current Medications Current Medications Medications (Trade) Dose Ordered Sig/Raji Route Start Time Stop Time Status Last Admin (Tylenol) 650 mg Q4H PRN PO 02/17/17 00:30 04/05/17 21:51 (Milk Of Magnesia Liq) 30 ml Q12H PRN PO 02/17/17 00:30 (Narcan Inj) 0.4 mg UNSCH PRN IV 02/17/17 00:30 Miscellaneous Information Patient in critical care unit? Ass... Q361D XX 02/17/17 04:15 02/17/17 04:15 (Parlodel) 2.5 mg Q12HR PO 02/17/17 21:00 04/10/17 09:31 (Pepcid) 20 mg HS PO 02/17/17 21:00 04/09/17 21:03 (Levsin) 0.125 mg Q4H PRN PO 02/17/17 11:15 (Malu-Colace) 1 tab BID PO 02/17/17 21:00 04/10/17 09:30 (Lactulose Liq) 30 ml DAILY PRN PO 02/19/17 07:30 (Prevacid Odt) 30 mg DAILY NG 02/19/17 09:00 04/10/17 09:30 (Tears Naturale Opth Soln) 1 drop Q6HR EACH EYE 02/22/17 19:00 04/10/17 09:32 (Vimpat) 50 mg BID G-TUBE 02/25/17 09:00 04/10/17 09:30 (Pill Splitter) 1 ea UNSCH PRN OTHER 03/01/17 23:45 (NS Flush) 2 ml UNSCH PRN IVF 03/05/17 18:00 (NS Flush) 2 ml BID IVF 03/05/17 21:00 04/10/17 09:00 (Lovenox Inj) 50 mg Q12H SQ 03/14/17 18:00 04/10/17 06:35 (PHENobarbital LIQ) 60 mg Q12HR PEG 03/16/17 21:00 04/10/17 09:31 (Dilantin Liq) 150 mg Q8HR PEG 03/16/17 22:00 04/10/17 06:35 (Zofran Odt) 4 mg Q6H PRN PO 03/16/17 21:00 (Dulcolax Supp) 10 mg DAILY PRN RECTAL 03/28/17 10:30 (Lopressor) 37.5 mg Q8H PO 03/29/17 18:00 04/10/17 09:31 (Desyrel) 25 mg HS PO 04/08/17 21:00 04/09/17 21:02 (Symmetrel) 100 mg DAILY@07 PO 04/09/17 07:00 04/10/17 06:35 (Whitfield 7.5-325 Mg) 1 tab Q6H PRN PEG 04/08/17 12:00 ([place]) Medical Decision Making MDM Remarks 22 y/o female with a history of TBI S/P craniotomy for bone flap replacement Neurological function appears stable although she does have inconsistent responses Upper extremity venous thrombosis Probable hydrocephalus developing vs brain atrophy on CT brain CXR unremarkable Mild hyponatremia ([place]) Plan Plan Remarks Continue neuro checks Continue anticonvulsants per Neurology Continue Lovenox for upper extremity DVT Continue mechanical DVT prophylaxis Primary management & HR mgmt per Hospitalist Per she has been accepted at [facility] It appears that CLOTH CHECKER shunt is desired to be done prior to discharge to [facility], Dr Gibson plans to discuss with family today ([place]) Attending Statement I have personally seen and examined the patient on the date of this note. Pertinent documentation and study results have been reviewed by the undersigned. I have personally developed the treatment plan and performed medical decision making. Agree with findings, exam, and treatment plan as noted above. I spoke at length with the patient's mother in the patient's room this evening. Option of ventriculoperitoneal shunt discussed. Indications and prognosis, risks and possible complications fully explained. I advised her that it is uncertain to what degree the hydrocephalus may be related to tissue loss secondary to the head trauma. However it does appear that she has some component of pressure hydrocephalus, which over the long-term could impair her overall outcome. The patient's mother appears to understand and wishes to proceed with ventriculoperitoneal shunt which will be scheduled for next week on an elective basis. (Victor Hugo Gibson MD) [place]una April 10, 2017 11:54 Victor Hugo Gibson MD April 10, 2017 23:41
--- NOTE | 2017-04-10 13:12 | HHI.PR ---
Subjective Remarks Follow up for TBI, chronic respiratory failure, probable hydrocephalus. Vision appears to be more alert today. is at bedside. No fever or chills. Objective Vitals Vital Signs Date Time Temp Pulse Resp B/P Pulse Ox O2 Delivery O2 Flow Rate FiO2 04/10/17 11:40 100 Nasal Cannula 2.00 04/10/17 11:30 98.1 99 15 112/63 100 04/10/17 10:35 115 04/10/17 09:28 144/82 04/10/17 08:40 100 T-piece 28 04/10/17 08:40 100 T-piece 25 04/10/17 07:50 99.1 107 14 102/50 94 04/10/17 04:00 98.0 114 20 143/63 97 04/10/17 00:00 98.5 100 18 121/81 95 04/09/17 20:00 97.5 110 20 120/74 100 04/09/17 15:56 98 T-piece 6.00 28 04/09/17 15:52 98 T-piece 6.00 28 04/09/17 15:50 98.3 109 20 136/94 100 I/O 04/09/17 04/09/17 04/09/17 04/10/17 04/10/17 04/10/17 06:59 14:59 22:59 06:59 14:59 22:59 # Voids 1 7 4 # Bowel Movements 0 4 Result Diagram: 04/08/17 1225 Objective Remarks GENERAL: Alert, moves her eyes, does not respond to any verbal commands. SKIN: Warm and dry. HEAD: Normocephalic. EYES: No scleral icterus. No injection or drainage. NECK: Supple, trachea midline. No JVD or lymphadenopathy. CARDIOVASCULAR: Regular rhythm, tachycardic without murmurs, gallops, or rubs. RESPIRATORY: Breath sounds equal bilaterally. No accessory muscle use. GASTROINTESTINAL: Abdomen soft, non-tender, nondistended. MUSCULOSKELETAL: No cyanosis, or edema. Procedures Replacement craniotomy bone flap 03/06/17 Side: Left A/P Problem List: (1) Breakthrough seizure ICD Code: G40.919 Status: Chronic (2) Seizure disorder ICD Code: G40.909 Status: Acute (3) Major neurocognitive disorder as late effect of traumatic brain injury without behavioral disturbance ICD Code: S06.9X9S Status: Chronic (4) Closed head injury ICD Code: S09.90XA Status: Acute (5) Subdural hematoma ICD Code: I62.00 Status: Acute (6) Pelvic fracture ICD Code: S32.9XXA Status: Acute (7) Kidney contusion ICD Code: S37.019A Status: Acute (8) Liver laceration ICD Code: S36.113A Status: Acute (9) Trauma ICD Code: T14.90 Status: Acute (10) Sinus tachycardia ICD Code: R00.0 Status: Acute (11) 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 - On bromocriptine. - Per neurosurgeon patient has hydrocephalus and may need PATTERN HAND shunt. Followed with serial CT. Last CT head on 03/30/2017. - Case management discussed with [facility] rehabilitation. Apparently rehabilitation will not accept this patient unless PATTERN HAND shunt is displaced. - Dr. Gibson will discuss with patient's family member. - Daytime drowsiness - currently on trazodone 25 mg by mouth daily at bedtime and amantadine 100 mg by mouth daily. Leukocytosis -clinically patient is doing well. -she is producing slightly more sputum but oxygenation is the same and clinically stable. -per he does not work further work up at the moment and want to monitor first. -continue to monitor. - Leukocytosis resolved. WBC 18.7 --> 8.3 on 04/03/2017. No signs of infection. Seizure, breakthrough: Continue Vimpat 50mg BID and Dilantin 150mg Q8H as well as Phenobarbital 65mg BID Chronic respiratory failure tracheostomy in place, cap up to 16 hrs/day Follow oxygen saturations Pulmonary toilet Pulmonology following Levsin for secretions 03/19 d/w RT- trial of trach capping LUE/RUE DVT: Lovenox 50mg SQ BID for now Treatment planned for 3 months right now Multiple pelvic fractures. Transverse process lumbar fractures Continue physical therapy Continue occupational therapy Continue speech therapy Sinus tachycardia - Heart rate in the 110s. Secondary to traumatic brain injury. Continue metoprolol 37.5 mg TID. Continue to monitor heart rate. Resolved MRSA pneumonia: completed vancomycin on 02/18. . Tube feeding As per nutrition consult, Continue Jevity 1.5 @ 70 mls/hr (x 18 hrs), held 1 hour before and after Dilantin. -Renal function stable. GI prophylaxis protection with Prevacid. Specialist Dr. West Rehab medicine Dr. Naida Kate pulmonary Dr. Gibson neurosurgery DVT prevention Lovenox Problem Qualifiers (1) Pelvic fracture: (2) Deep venous thrombosis of upper extremity: Qualified Code: I82.623 - Acute deep vein thrombosis (DVT) of both upper extremities, unspecified vein Jerry Dior DO April 10, 2017 13:12
[2017-04-10] MEDS: traZODone HCL 50 MG TAB PO SCH (21:11)
[2017-04-10] MEDS: FAMOTIDINE 20 MG TAB PO SCH (21:11)
[2017-04-11] VITALS (10 sets, daily range): BP systolic 121–163; BP diastolic 56–99; PULSE 88–115; RESP 18–20; TEMP 97.8–98.7; O2SAT 96–100
[2017-04-11] MEDS: RESP: ALBUTEROL 2.5 MG/IPRATROPIUM 0.5 MG NEB (SCH) NEB ×6 (00:05→22:05)
[2017-04-11] MEDS: ARTIFICIAL TEARS OPTH SOLN 15 ML BTL EACH EYE SCH ×4 (00:48→17:30)
[2017-04-11] MEDS: METOPROLOL TARTRATE 25 MG TAB PO SCH ×3 (02:11→17:30)
[2017-04-11] MEDS: ACETAMINOPHEN/HYDROcodone 325 MG/7.5 MG TAB PEG PRN (04:31)
[2017-04-11] MEDS: ENOXAPARIN SODIUM 60 MG/0.6 ML SYRINGE SQ SCH ×2 (04:35→17:30)
[2017-04-11] MEDS: PHENYTOIN SUSP 100 MG/4 ML CUP PEG SCH ×3 (04:35→23:45)
[2017-04-11] MEDS: AMANTADINE HCL 100 MG CAP G-TUBE SCH ×2 (05:55→12:36)
[2017-04-11] MEDS: PHENobarbital ELIX 20 MG/5 ML CUP PEG SCH ×2 (08:33→23:44)
[2017-04-11] MEDS: LACOSAMIDE 50 MG TAB G-TUBE SCH ×2 (08:33→23:43)
[2017-04-11] MEDS: SODIUM CHLORIDE 0.9% FLUSH 5 ML FLUSH IVF SCH ×2 (08:33→23:43)
[2017-04-11] MEDS: LANSOPRAZOLE SOLUTAB 30 MG TAB NG SCH (08:33)
[2017-04-11] MEDS: DOCUSATE SODIUM 50 MG/SENNA 8.6 MG TAB PO SCH ×2 (08:34→23:44)
[2017-04-11] MEDS: BROMOCRIPTINE MESYLATE 2.5 MG TAB PO SCH ×2 (08:34→23:44)
[2017-04-11] MEDS: NAPROXEN SODIUM 550 MG TAB PO PRN (13:11)
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
[2017-04-11] MEDS: traZODone HCL 50 MG TAB PO SCH (23:44)
[2017-04-11] MEDS: FAMOTIDINE 20 MG TAB PO SCH (23:45)
[2017-04-12] VITALS (9 sets, daily range): BP systolic 116–140; BP diastolic 67–97; PULSE 86–114; RESP 20; TEMP 97.7–98.6; O2SAT 98–100
[2017-04-12] MEDS: RESP: ALBUTEROL 2.5 MG/IPRATROPIUM 0.5 MG NEB (SCH) NEB ×6 (01:05→20:06)
[2017-04-12] MEDS: ARTIFICIAL TEARS OPTH SOLN 15 ML BTL EACH EYE SCH ×5 (01:27→21:26)
--- NOTE | 2017-04-12 02:00 | RADRPT ---
EXAM DATE/TIME: 04/12/2017 00:51 [place] COMPARISON: CT BRAIN W/O CONTRAST, March 30, 2017, 20:20. INDICATIONS : Follow up hydrocephalus. RADIATION DOSE: 56.35 CTDIvol (mGy) MEDICAL HISTORY : Seizures. SURGICAL HISTORY : Craniotomy. ENCOUNTER: Initial ACUITY: 4 - 6 months PAIN SCALE: Non-responsive LOCATION: cranial TECHNIQUE: Multiple contiguous axial images were obtained of the head. Using automated exposure control and adj ustment of the mA and/or kV according to patient size, radiation dose was kept as low as reasonably a chievable to obtain optimal diagnostic quality images. FINDINGS: Comparison is March 30. There is significant subdural fluid accumulation. There is a wedge-shaped area o f decreased attenuation in the right occipital lobe and high left frontal lobe characteristic of evol ving infarcts. Remote basal ganglia infarcts again noted. Ventricular size is mildly prominent but st able since March 30. No acute bony abnormality. Previous left craniotomy. CONCLUSION: 1. Ventricular size mildly prominent but stable since March 30. No significant subdural fluid collection s. 2. Evolving infarct right occipital lobe and left frontal lobe. Remote lacunar infarcts in the basal ganglia. Previous left craniotomy. Karl Leone MD on April 12, 2017 at 1:55 Board Certified Radiologist. This report was verified electronically.
[2017-04-12] MEDS: METOPROLOL TARTRATE 25 MG TAB PO SCH ×3 (02:43→18:29)
[2017-04-12] MEDS: AMANTADINE HCL 100 MG CAP G-TUBE SCH ×2 (05:09→12:46)
[2017-04-12] MEDS: PHENYTOIN SUSP 100 MG/4 ML CUP PEG SCH ×3 (05:09→21:24)
[2017-04-12] MEDS: ENOXAPARIN SODIUM 60 MG/0.6 ML SYRINGE SQ SCH ×2 (05:10→18:29)
[2017-04-12] MEDS: NAPROXEN SODIUM 550 MG TAB PO PRN (05:15)
[2017-04-12] MEDS: LANSOPRAZOLE SOLUTAB 30 MG TAB NG SCH (09:47)
[2017-04-12] MEDS: SODIUM CHLORIDE 0.9% FLUSH 5 ML FLUSH IVF SCH ×2 (09:47→21:00)
[2017-04-12] MEDS: LACOSAMIDE 50 MG TAB G-TUBE SCH ×2 (09:47→21:22)
[2017-04-12] MEDS: BROMOCRIPTINE MESYLATE 2.5 MG TAB PO SCH ×2 (09:47→21:22)
[2017-04-12] MEDS: DOCUSATE SODIUM 50 MG/SENNA 8.6 MG TAB PO SCH ×2 (09:47→21:22)
[2017-04-12] MEDS: PHENobarbital ELIX 20 MG/5 ML CUP PEG SCH ×2 (09:47→21:23)
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
[2017-04-12] MEDS: traZODone HCL 50 MG TAB PO SCH (21:22)
[2017-04-12] MEDS: FAMOTIDINE 20 MG TAB PO SCH (21:22)
[2017-04-12] MEDS: ACETAMINOPHEN/HYDROcodone 325 MG/7.5 MG TAB PEG PRN (23:47)
[2017-04-13] VITALS (9 sets, daily range): BP systolic 114–141; BP diastolic 61–98; PULSE 82–115; RESP 18–20; TEMP 96.5–97.6; O2SAT 97–100
[2017-04-13] MEDS: RESP: ALBUTEROL 2.5 MG/IPRATROPIUM 0.5 MG NEB (SCH) NEB ×6 (00:08→20:26)
[2017-04-13] MEDS: METOPROLOL TARTRATE 25 MG TAB PO SCH ×3 (01:39→18:31)
[2017-04-13] MEDS: ENOXAPARIN SODIUM 60 MG/0.6 ML SYRINGE SQ SCH ×2 (06:00→18:32)
[2017-04-13] MEDS: PHENYTOIN SUSP 100 MG/4 ML CUP PEG SCH ×2 (06:11→14:44)
[2017-04-13] MEDS: ARTIFICIAL TEARS OPTH SOLN 15 ML BTL EACH EYE SCH ×3 (06:11→18:31)
[2017-04-13] MEDS: AMANTADINE HCL 100 MG CAP G-TUBE SCH ×2 (06:11→12:56)
[2017-04-13] MEDS: BROMOCRIPTINE MESYLATE 2.5 MG TAB PO SCH (08:24)
[2017-04-13] MEDS: LANSOPRAZOLE SOLUTAB 30 MG TAB NG SCH (08:24)
[2017-04-13] MEDS: DOCUSATE SODIUM 50 MG/SENNA 8.6 MG TAB PO SCH (08:24)
[2017-04-13] MEDS: SODIUM CHLORIDE 0.9% FLUSH 5 ML FLUSH IVF SCH ×2 (08:24→21:00)
[2017-04-13] MEDS: LACOSAMIDE 50 MG TAB G-TUBE SCH (08:24)
[2017-04-13] MEDS: PHENobarbital ELIX 20 MG/5 ML CUP PEG SCH (08:25)
[2017-04-13] MEDS ORDERED: SODIUM CHLORID 0.9% 500 ML IV PRN (09:30)
[2017-04-13] MEDS ORDERED: LACTATED RINGER'S 1000 ML IV PRN (09:30)
[2017-04-13] MEDS ORDERED: INSULIN HUMAN REGULAR 1,000 UNITS/10 ML VIAL SQ PRN (09:30)
[2017-04-13] MEDS ORDERED: CHLORHEXIDINE GLUCONATE 2 % 1 PACK (2 CLOTHS) TOPICAL PRN (09:30)
[2017-04-13] MEDS ORDERED: METOPROLOL TARTRATE 25 MG TAB PO PRN (09:30)
[2017-04-13] MEDS ORDERED: POVIDONE IODINE 5% (ANTISEPSIS KIT) 4 APPLICATIONS EACH NARE PRN (09:30)
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
--- NOTE | 2017-04-13 13:55 | HHI.NSPN ---
([place]) Note Status Status: Progress Note ([place]) Interval History Interval History Ms. Laurent is a 22 y/o female with a history of TBI 03/05: To OR for: Replacement left craniotomy bone flap Left frontotemporoparietal duraplasty 03/06: POD # 1 replacement craniotomy bone flap 03/07: today mildly opening eyes, however not following commands 03/08: f/u CT Head completed, more awake today 03/09: Patient opens eyes spontaneously but not tracking 03/10: Patient opens eyes to noxious stimuli, Nursing reports she is more responsive to than staff 03/11: Patient transferred to regular med/surg floor 03/12: Eyes open, smiles, still tachycardiac 03/13: Patient drowsy today, minimally follows commands. 03/14/17: Heparin IV started for DVT. CT Head satisfactory 03/16: Patient awake, OT at bedside doing LUE exercises 03/17: Patient sleeping, not responding to verbal stimuli, no apparent distress. Samantha to craniotomy incision removed yesterday. 03/18: Patient awake, follows some commands. 03/19: Patient asleep but awakens to verbal stimuli, follows commands but not consistently. 03/20: Patient awakes, smiles when asked to, follows commands but not consistently, NAD. states she was tachycardiac in the 140s earlier and was given Roxicodone. 03/21: Patient awakes, follows commands but not consistently, no new issues 03/23: Patient is awake, follows some commands inconsistently. states she has been "acting funny" today. 03/25: Patient is asleep when seen. She turns to the sound of this practitioner's voice and flutters her eyelids. She did smile to command but did not follow any other commands. She was seen moving the right leg spontaneously. Her stated Therapy had just worked with her. 03/27: Patient asleep when initially seen this morning and did not respond to verbal stimuli. When seen this afternoon the patient did finally start to flutter her eyes and smile upon command after being coaxed. She was noted to spontaneously move the RUE & BLE. She did move the BLE to noxious stimuli applied to the LUE. It was difficult to tell if she did attempt to wiggle the toes to command because she would move her feet. 03/30: Patient asleep when seen. No response to verbal stimuli initially. Did not follow any commands. Did have facial grimace to noxious stimuli to BUE & RLE but withdrew to LLE. She did smile to verbal stimuli as this practitioner was finishing examining her. 03/31: The patient was asleep but did response to verbal coaxing to smile and stick her tongue out. A CT brain yesterday was concerning for development of hydrocephalus. The known left frontal fluid collection was not evident. 04/01: The patient was asleep but responded to verbal to verbal stimuli. 04/03: The patient was asleep but with much coaxing did wake up and follow some commands. 04/06: The patient was asleep when seen. She did not wake up to verbal stimuli. She did withdraw the RLE and flex the RUE to noxious stimuli. It is difficult to ascertain for certain if she had any facial grimace to noxious stimuli of the extremities. 04/08: Patient asleep but opens her eyes to verbal stimuli with coaxing. She did smile and move the RLE to command. She flexed the RUE and withdrew the left foot to noxious stimuli. 04/09: Patient with eyes closed but did open to verbal stimuli with coaxing. She smiled and stuck out her tongue as well with coaxing. She is spontaneously moving the RLE but nonpurposefully. 04/13: The patient was initially seen in the hallway sitting in a cardiac chair with her pushing her around the floor. She intermittently opened her eyes spontaneously and did smile to command. When seen a little later she was asleep but did finally open her eyes with some coaxing. She again smiled to command. She followed her 's direction to lift her right leg. Otherwise she did not follow any commands. ([place]) Labs, Micro, & Vital Signs Constitutional Vital Signs Date Time Temp Pulse Resp B/P Pulse Ox O2 Delivery O2 Flow Rate FiO2 04/13/17 13:01 96.8 99 20 141/98 99 04/13/17 08:58 97 21 04/13/17 08:43 113 04/13/17 08:43 100 T-Piece 28 04/13/17 08:19 96.5 93 20 122/68 100 04/13/17 04:00 97.6 107 18 126/80 100 04/13/17 04:00 Trach Collar 6.00 28 04/13/17 00:47 20 04/13/17 00:30 97.6 82 20 114/61 100 04/12/17 21:15 97.7 101 20 134/84 98 04/12/17 21:15 Nasal Cannula 2.00 Humidified 04/12/17 20:06 100 T-piece 28 04/12/17 20:06 100 T-piece 28 04/12/17 20:00 112 04/12/17 17:09 108 04/12/17 16:20 98.3 86 116/67 100 04/13/17 06:59 Intake Total 680 ml Balance 680 ml ([place]) Review of Systems/Exam ROS Unable to obtain ROS due to patient's mental status. Exam HEENT: Surgical incision well approximated w/o any evident drainage, erythema or streaking. Resp: CTAB w/o W/R/R, equal excursion, non-laboured, trached w/cap on. CV: RRR w/o M/G/R but fast, cap refill < 2 sec, radial & pedal pulses 2+ bilaterally, no pedal edema. GI: Abdomen soft & nontender, bowel sounds present. PEG tube clamped. Neuro: Asleep but did open eyes to verbal stimuli with coaxing. Also smiles with coaxing. No spontaneous movement noted but she did lift her RLE at her 's command. Otherwise she did not follow any other commands. ([place]) Medications Current Medications Current Medications Medications (Trade) Dose Ordered Sig/Raji Route Start Time Stop Time Status Last Admin (Tylenol) 650 mg Q4H PRN PO 02/17/17 00:30 04/05/17 21:51 (Milk Of Magnesia Liq) 30 ml Q12H PRN PO 02/17/17 00:30 (Narcan Inj) 0.4 mg UNSCH PRN IV 02/17/17 00:30 Miscellaneous Information Patient in critical care unit? Ass... Q361D XX 02/17/17 04:15 02/17/17 04:15 (Parlodel) 2.5 mg Q12HR PO 02/17/17 21:00 04/13/17 08:24 (Pepcid) 20 mg HS PO 02/17/17 21:00 04/12/17 21:22 (Levsin) 0.125 mg Q4H PRN PO 02/17/17 11:15 (Malu-Colace) 1 tab BID PO 02/17/17 21:00 04/13/17 08:24 (Lactulose Liq) 30 ml DAILY PRN PO 02/19/17 07:30 (Prevacid Odt) 30 mg DAILY NG 02/19/17 09:00 04/13/17 08:24 (Tears Naturale Opth Soln) 1 drop Q6HR EACH EYE 02/22/17 19:00 04/13/17 12:56 (Vimpat) 50 mg BID G-TUBE 02/25/17 09:00 04/13/17 08:24 (Pill Splitter) 1 ea UNSCH PRN OTHER 03/01/17 23:45 (NS Flush) 2 ml UNSCH PRN IVF 03/05/17 18:00 (NS Flush) 2 ml BID IVF 03/05/17 21:00 04/13/17 08:24 (Lovenox Inj) 50 mg Q12H SQ 03/14/17 18:00 04/12/17 18:29 (PHENobarbital LIQ) 60 mg Q12HR PEG 03/16/17 21:00 04/13/17 08:25 (Dilantin Liq) 150 mg Q8HR PEG 03/16/17 22:00 04/13/17 06:11 (Zofran Odt) 4 mg Q6H PRN PO 03/16/17 21:00 (Dulcolax Supp) 10 mg DAILY PRN RECTAL 03/28/17 10:30 (Lopressor) 37.5 mg Q8H PO 03/29/17 18:00 04/13/17 09:43 (Desyrel) 25 mg HS PO 04/08/17 21:00 04/12/17 21:22 ([place] 7.5-325 Mg) 1 tab Q6H PRN PEG 04/08/17 12:00 04/12/17 23:47 (Symmetrel) 100 mg BID@07,12 G-TUBE 04/11/17 07:00 04/13/17 12:56 Naproxen Sodium 275 mg 275 mg Q12HR PRN PO 04/11/17 12:45 04/12/17 05:15 Lactated Ringer's 1,000 ml @ 30 mls/hr Q24H PRN IV 04/13/17 09:30 04/16/17 09:29 (NS 500 ml Inj) 500 ml @ 30 mls/hr [id number] PRN IV 04/13/17 09:30 04/16/17 09:29 ([place]) Medical Decision Making MDM Remarks 22 y/o female with a history of TBI S/P craniotomy for bone flap replacement Neurological function appears stable although she does have inconsistent responses Upper extremity venous thrombosis CT brain with probable hydrocephalus developing vs brain atrophy CT brain with stable ventricular prominence and evolving right occipital lobe & left frontal lobe infarcts in the basal ganglia CXR unremarkable Mild hyponatremia ([place]) Plan Plan Remarks Continue neuro checks Continue anticonvulsants per Neurology Continue Lovenox for upper extremity DVT Continue mechanical DVT prophylaxis Primary management & HR mgmt per Hospitalist Per she has been accepted at [facility] Plan is to do DELIVERY DRIVER/CUSTOMER SERVICE shunt later today ([place]) Attending Statement I have personally seen and examined the patient on the date of this note. Pertinent documentation and study results have been reviewed by the undersigned. I have personally developed the treatment plan and performed medical decision making. Agree with findings, exam, and treatment plan as noted above. Ventriculoperitoneal shunt postponed until 04/16/17 due to OR scheduling. (Victor Hugo Gibson MD) [place] April 13, 2017 13:54 Victor Hugo Gibson MD April 15, 2017 23:25
[2017-04-13] MEDS: ACETAMINOPHEN 325 MG TAB PO PRN ×2 (14:44→18:32)
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
[2017-04-14] VITALS (10 sets, daily range): BP systolic 118–139; BP diastolic 64–91; PULSE 108–119; RESP 18–20; TEMP 96.5–98.9; O2SAT 95–100
[2017-04-14] MEDS: PHENobarbital ELIX 20 MG/5 ML CUP PEG SCH ×3 (00:05→21:34)
[2017-04-14] MEDS: DOCUSATE SODIUM 50 MG/SENNA 8.6 MG TAB PO SCH ×3 (00:06→21:34)
[2017-04-14] MEDS: LACOSAMIDE 50 MG TAB G-TUBE SCH ×3 (00:06→21:34)
[2017-04-14] MEDS: FAMOTIDINE 20 MG TAB PO SCH ×2 (00:06→21:34)
[2017-04-14] MEDS: PHENYTOIN SUSP 100 MG/4 ML CUP PEG SCH ×4 (00:06→21:34)
[2017-04-14] MEDS: BROMOCRIPTINE MESYLATE 2.5 MG TAB PO SCH ×3 (00:07→21:34)
[2017-04-14] MEDS: traZODone HCL 50 MG TAB PO SCH ×2 (00:07→21:34)
[2017-04-14] MEDS: ACETAMINOPHEN 325 MG TAB PO PRN (00:13)
[2017-04-14] MEDS: METOPROLOL TARTRATE 25 MG TAB PO SCH ×2 (02:34→08:30)
[2017-04-14] MEDS: ARTIFICIAL TEARS OPTH SOLN 15 ML BTL EACH EYE SCH ×4 (05:45→18:23)
[2017-04-14] MEDS: AMANTADINE HCL 100 MG CAP G-TUBE SCH ×2 (05:46→12:19)
[2017-04-14] MEDS: ENOXAPARIN SODIUM 60 MG/0.6 ML SYRINGE SQ SCH ×2 (05:46→18:22)
[2017-04-14] MEDS: RESP: ALBUTEROL 2.5 MG/IPRATROPIUM 0.5 MG NEB (SCH) NEB ×4 (07:33→19:55)
[2017-04-14] MEDS: LANSOPRAZOLE SOLUTAB 30 MG TAB NG SCH (08:31)
[2017-04-14] MEDS: SODIUM CHLORIDE 0.9% FLUSH 5 ML FLUSH IVF SCH ×2 (08:31→21:00)
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
[2017-04-14 12:17] LABS: PHENOBARBITAL 23.2 MCG/ML (15.0-40.0)
[2017-04-14] MEDS ORDERED: PROPRANOLOL HCL 20 MG TAB PO SCH (14:15)
--- NOTE | 2017-04-14 20:46 | HHI.PR ---
Subjective Remarks Trach capped and doing well.. Few trach secretions and needs suction at HS. Responds to some commands Objective Vital Signs Date Time Temp Pulse Resp B/P Pulse Ox O2 Delivery O2 Flow Rate FiO2 04/14/17 19:55 99 21 04/14/17 19:55 99 21 04/14/17 15:23 97.5 111 20 124/74 95 04/14/17 12:44 98.9 108 20 133/87 98 04/14/17 08:14 111 04/14/17 07:57 98.4 115 20 129/80 98 04/14/17 07:37 97 T-piece 6.00 28 04/14/17 07:37 97 T-piece 6.00 28 04/14/17 06:34 97.0 114 18 139/91 100 04/14/17 03:54 95 T-piece 04/14/17 01:50 98 T-Piece 28 04/14/17 00:00 96.5 119 18 118/64 98 I/O 04/13/17 04/13/17 04/13/17 04/14/17 04/14/17 04/14/17 07:00 15:00 23:00 07:00 15:00 23:00 Intake Total 680 ml 0 ml Balance 680 ml 0 ml Intake Oral 0 ml Tube Feeding 280 ml Tube Irrigant 400 ml # Voids 3 5 1 # Bowel Movements 1 0 1 1 Procedures Replacement craniotomy bone flap 03/06/17 Side: Left Objective Remarks PHYSICAL EXAMINATION GENERAL: Averagely built young white female with no acute distress. HEENT: Head normocephalic. eyes clear. No bruits, no venous distension. Trach in capped . CHEST: Equal movements with clear lungs. CARDIAC: Heart sounds are regular. Tachycardic. No murmur. ABDOMEN: Soft and nontender.PEG +. Bowel sounds are active. EXTREMITIES: Weakness of the lower limbs and left side . She is lethargic SKIN:No Lesions. Assessment and Plan Assessment and Plan IMPRESSION 1. Respiratory failure with a history of MRSA pneumonia 2. Status post craniotomy for a subdural hematoma and traumatic brain injury 3. Right rib fractures with history of pneumothorax, resolved 4. Tachycardia Plan : 1 T Bar 28 % at HS 2. Suction trach prn . 3. Nebs qid , albuterol prn. 4. Cap Trach up to 12 hrs. daily. 5. PT evaluation 6. Tube feeds as ordered. 7. Waiting on STAFFING PROGRAM MANAGER shunt Michela Mohr MD April 14, 2017 20:46
[2017-04-15] VITALS (11 sets, daily range): BP systolic 126–173; BP diastolic 70–103; PULSE 94–121; RESP 16–24; TEMP 96.8–98.5; O2SAT 92–100
--- NOTE | 2017-04-15 05:37 | HHI.PR ---
Blank section for building Received call from RN regarding tachycardia HR 120s-130s STAT EKG obtained ST rate 132 BP 173/100 Patient was switched from metoprolol 37.5 mg PO Q8H to Propranolol 20 mg PO daily 04/14/2017 Patient was doing better on metoprolol will switch back and continue to monitor Katharine Rodriguez April 15, 2017 05:37
[2017-04-15] MEDS: ARTIFICIAL TEARS OPTH SOLN 15 ML BTL EACH EYE SCH ×4 (06:00→17:54)
[2017-04-15] MEDS ORDERED: METOPROLOL TARTRATE 25 MG TAB PO SCH (06:00)
[2017-04-15] MEDS: AMANTADINE HCL 100 MG CAP G-TUBE SCH ×2 (06:13→12:46)
[2017-04-15] MEDS: PHENYTOIN SUSP 100 MG/4 ML CUP PEG SCH ×3 (06:14→21:58)
[2017-04-15] MEDS: ENOXAPARIN SODIUM 60 MG/0.6 ML SYRINGE SQ SCH ×2 (06:14→17:54)
[2017-04-15 07:51] LABS: AUTOMATED NEUTROPHIL # 4.5 TH/MM3 (1.8-7.7); BASOPHIL % 0.7 % (0.0-2.0); EOSINOPHIL # 0.2 TH/MM3 (0-0.4); EOSINOPHIL % 3.6 % (0.0-4.0); HEMATOCRIT 36.7 % (35.0-46.0); HEMO FLAGS DIFF FINAL; LYMPH % 21.5 % (9.0-44.0); LYMPHOCYTE # 1.5 TH/MM3 (1.0-4.8); MEAN CELL VOLUME 83.3 FL (80.0-100.0); MEAN CORPUSCULAR HEMOGLOBIN 28.7 PG (27.0-34.0); MEAN CORPUSCULAR HGB CONC 34.4 % (32.0-36.0); MONO % 9.1 % (0.0-8.0); NEUT % 65.1 % (16.0-70.0); PLATELET COUNT 311 TH/MM3 (150-450); RED BLOOD COUNT 4.41 MIL/MM3 (4.00-5.30); WHITE BLOOD COUNT 6.9 TH/MM3 (4.0-11.0)
[2017-04-15 08:27] LABS: BICARBONATE 30.8 MEQ/L (21.0-32.0); POTASSIUM 3.9 MEQ/L (3.5-5.1)
[2017-04-15] MEDS: RESP: ALBUTEROL 2.5 MG/IPRATROPIUM 0.5 MG NEB (SCH) NEB ×2 (08:54→11:00)
[2017-04-15] MEDS: SODIUM CHLORIDE 0.9% FLUSH 5 ML FLUSH IVF SCH ×2 (09:00→21:59)
[2017-04-15] MEDS: DOCUSATE SODIUM 50 MG/SENNA 8.6 MG TAB PO SCH ×2 (09:51→22:06)
[2017-04-15] MEDS: BROMOCRIPTINE MESYLATE 2.5 MG TAB PO SCH ×2 (09:51→21:52)
[2017-04-15] MEDS: LACOSAMIDE 50 MG TAB G-TUBE SCH ×2 (09:51→21:53)
[2017-04-15] MEDS: LANSOPRAZOLE SOLUTAB 30 MG TAB NG SCH (09:51)
[2017-04-15] MEDS: PHENobarbital ELIX 20 MG/5 ML CUP PEG SCH ×2 (09:52→21:58)
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
[2017-04-15] MEDS: ACETAMINOPHEN/HYDROcodone 325 MG/7.5 MG TAB PEG PRN (13:33)
[2017-04-15] MEDS: METOPROLOL TARTRATE 50 MG TAB PO SCH ×2 (13:39→22:01)
[2017-04-15] MEDS: RESP: IPRATROPIUM 0.5 MG/2.5 ML NEB NEB SCH ×2 (15:10→20:56)
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
--- NOTE | 2017-04-15 19:28 | EKG ---
Date Performed: 04/15/2017 Time Performed: 04:39:16 PTAGE: 22 years EKG: Sinus tachycardia Inferior T wave changes may be normal for age Borderline ECG Compared to prior tracing no significant change DOCTOR: Manjit Caro Interpretating Date/Time 04/15/2017 19:27:30
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
[2017-04-15] MEDS: traZODone HCL 50 MG TAB PO SCH (21:52)
[2017-04-15] MEDS: FAMOTIDINE 20 MG TAB PO SCH (21:54)
--- NOTE | 2017-04-15 23:28 | HHI.NSPN ---
History Interval History 03/06/17: Replacement craniotomy bone flap 03/14/17: Heparin IV started for DVT. CT Head satisfactory Exam Results Vital Signs Date Time Temp Pulse Resp B/P Pulse Ox O2 Delivery O2 Flow Rate FiO2 04/15/17 20:58 99 T-piece 6.00 21 04/15/17 20:00 98.5 117 16 137/96 Physical Examination HEENT: Surgical incision well approximated w/o any evident drainage, erythema or streaking. Resp: CTAB w/o W/R/R, equal excursion, non-laboured, trached w/cap on. CV: RRR w/o M/G/R but fast, cap refill < 2 sec, radial & pedal pulses 2+ bilaterally, no pedal edema. GI: Abdomen soft & nontender, bowel sounds present. PEG tube clamped. Neuro: Moderate spontaneous eye opening. Somewhat wandering gaze Not following commands Reaches with right upper extremity Lab, Micro, Other Results Laboratory Tests Test 04/15/17 07:17 White Blood Count 6.9 TH/MM3 Red Blood Count 4.41 MIL/MM3 Hemoglobin 12.6 GM/DL Hematocrit 36.7 % Mean Corpuscular Volume 83.3 FL Mean Corpuscular Hemoglobin 28.7 PG Mean Corpuscular Hemoglobin 34.4 % Concent Red Cell Distribution Width 16.0 % Platelet Count 311 TH/MM3 Mean Platelet Volume 8.9 FL Neutrophils (%) (Auto) 65.1 % Lymphocytes (%) (Auto) 21.5 % Monocytes (%) (Auto) 9.1 % Eosinophils (%) (Auto) 3.6 % Basophils (%) (Auto) 0.7 % Neutrophils # (Auto) 4.5 TH/MM3 Lymphocytes # (Auto) 1.5 TH/MM3 Monocytes # (Auto) 0.6 TH/MM3 Eosinophils # (Auto) 0.2 TH/MM3 Basophils # (Auto) 0.0 TH/MM3 CBC Comment DIFF FINAL Differential Comment Sodium Level 137 MEQ/L Potassium Level 3.9 MEQ/L Chloride Level 96 MEQ/L Carbon Dioxide Level 30.8 MEQ/L Anion Gap 10 MEQ/L Blood Urea Nitrogen 8 MG/DL Creatinine 0.24 MG/DL Estimat Glomerular Filtration 354 ML/MIN Rate Random Glucose 104 MG/DL Calcium Level 9.4 MG/DL Medical Decision Making Impression and Plan Impression: 1. Stable neurologic exam status post placement craniotomy bone flap. Postoperative CT scan head reveals moderate ventriculomegaly 2. Upper extremity venous thrombosis Plan: Discussed with the patient's family earlier this week. They are in agreement with proceeding with ventriculoperitoneal shunt, tentatively planned for 04/16/17. Victor Hugo Gibson MD April 15, 2017 23:28
[2017-04-16] VITALS (11 sets, daily range): BP systolic 99–170; BP diastolic 52–89; PULSE 101–116; RESP 18–22; TEMP 96.5–97.8; O2SAT 94–100
[2017-04-16] MEDS: ARTIFICIAL TEARS OPTH SOLN 15 ML BTL EACH EYE SCH ×5 (00:04→22:38)
[2017-04-16] MEDS: NAPROXEN SODIUM 550 MG TAB PO PRN (02:24)
[2017-04-16] MEDS: ACETAMINOPHEN/HYDROcodone 325 MG/7.5 MG TAB PEG PRN ×2 (03:44→16:21)
[2017-04-16] MEDS: AMANTADINE HCL 100 MG CAP G-TUBE SCH ×3 (04:56→12:00)
[2017-04-16] MEDS: METOPROLOL TARTRATE 50 MG TAB PO SCH ×3 (04:56→21:08)
[2017-04-16] MEDS: PHENYTOIN SUSP 100 MG/4 ML CUP PEG SCH ×4 (04:56→22:37)
[2017-04-16] MEDS: ENOXAPARIN SODIUM 60 MG/0.6 ML SYRINGE SQ SCH ×2 (04:56→16:30)
[2017-04-16] MEDS ORDERED: GELFOAM SIZE 100 ONE (07:52)
[2017-04-16] MEDS ORDERED: LIDOCAINE 1%/EPINEPHrine 1:100,000 SOLN 50 ML VIAL ONE (07:52)
[2017-04-16] MEDS ORDERED: THROMBIN (TOPICAL) 5,000 UNIT VIAL ONE (07:52)
[2017-04-16] MEDS ORDERED: GENTAMICIN SULFATE 80 MG/2 ML VIAL ONE (07:52)
[2017-04-16] MEDS: RESP: IPRATROPIUM 0.5 MG/2.5 ML NEB NEB SCH ×4 (08:03→22:25)
[2017-04-16] MEDS: LACOSAMIDE 50 MG TAB G-TUBE SCH ×2 (08:30→21:08)
[2017-04-16] MEDS: LANSOPRAZOLE SOLUTAB 30 MG TAB NG SCH (08:30)
[2017-04-16] MEDS: SODIUM CHLORIDE 0.9% FLUSH 5 ML FLUSH IVF SCH ×2 (08:31→21:00)
[2017-04-16] MEDS: DOCUSATE SODIUM 50 MG/SENNA 8.6 MG TAB PO SCH ×2 (08:31→21:08)
[2017-04-16] MEDS: PHENobarbital ELIX 20 MG/5 ML CUP PEG SCH ×2 (08:31→21:16)
[2017-04-16] MEDS: BROMOCRIPTINE MESYLATE 2.5 MG TAB PO SCH ×2 (08:31→21:08)
[2017-04-16] MEDS ORDERED: ceFAZolin 2 GM PREMIX 50 ML ONE (10:25)
[2017-04-16] MEDS ORDERED: fentaNYL CITRATE 250 MCG/5 ML AMP ONE (10:28)
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
[2017-04-16] MEDS ORDERED: LACTATED RINGER'S 1000 ML INJ 1,000 ML IV ONE (12:00)
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
[2017-04-16] MEDS ORDERED: D5-1/2 NS + KCL 20 MEQ INJ 1,000 ML IV SCH (13:15)
--- NOTE | 2017-04-16 13:27 | PD.OP ---
Operative Report Date of Surgery: April 16, 2017 Preoperative Diagnosis: (1) Hydrocephalus Hydrocephalus status post traumatic brain injury Postoperative Diagnosis: (1) Hydrocephalus Hydrocephalus status post traumatic brain injury Procedure: Right frontal lele hole for ventriculoperitoneal shunt placement Anesthesia: Gen. Surgeon: Victor Hugo Gibson Juice Weigher(s): Elizabeth Warren Operation and Findings: Procedure in detail: The patient was brought into the operating room and general endotracheal anesthesia induced without difficulty. Llanes catheter, and sequential compression devices were placed. Lines were established byr anesthesia. The patient was placed in the supine position on the 3080 table with the head turned towards the left on the horseshoe headrest. All extremities were appropriately padded The right side of the head, neck, chest, and abdomen were shaved with the clippers and sterilely prepped and draped. Appropriate procedure was performed with all personal present and in agreement 1% Xylocaine with epinephrine was used for local infiltration of the incision sites. The initial incision was made in a curvilinear fashion at the right frontal region approximately 3-4 cm lateral to the midline in the mid pupillary line and approximately 1 cm anterior to the coronal suture and carried sharply down to the cranium. The orientation & mobility specialist was used to place a small bur hole and the dura was incised with the 15 blade knife and edges coagulated with the bipolar forceps. Small incision was made in the cortical surface with the bipolar. The second incision was made at the right upper quadrant of the abdomen just below the costal margin and carried sharply down to the muscle fascia which was incised transversely and the muscle fiber split revealing the peritoneum which was grasped with mosquito forceps and incised with the 15 blade knife. The peritoneal cavity was freely entered with the Polvadera dissector. A 4-0 Nurolon pursestring suture was placed at the peritoneal incision. The shunt passer was used to pass the distal peritoneal catheter already attached to the distal shunt valve and secured with 2-0 silk suture from the frontal scalp incision to the abdominal incision via a small third right occipital scalp incision. The valve was preset to 120 mm water pressure prior to placement, with the setting verified with preoperative x-ray. The [email or web address]) ventricular catheter was then passed to a depth of approximately 6 cm intracranial with clear colorless cerebrospinal fluid obtained and a single pass. Specimen of CSF was collected. The ventricular catheter was cut to the appropriate length and secured to the proximal end of the valve with the 2-0 silk tie. After spontaneous CSF flow was noted through the distal peritoneal catheter, the abdominal catheter was cut to a length of approximately 15 cm intraperitoneal length and placed in the peritoneal cavity and pursestring suture secured. All incision sites were well irrigated with antibiotic irrigation. Closure was performed with 3-0 Vicryl running for the abdominal muscle fascia and interrupted for the abdominal subcutaneous closure and scalp galeal closure. The scalp was closed with 4-0 nylon running suture with 4-0 Vicryl running for the abdominal subcuticular closure. A dressing of sterile Mastisol and Steri- Strips was placed at each incision site. The patient was taken to recovery room in stable condition. All counts were correct at the end of the case. Estimated blood loss was 25 cc Victor Hugo Gibson MD April 16, 2017 13:27
[2017-04-16] MEDS ORDERED: *morphine SULFATE 8 MG/ML PERIprocedure ONLY ONE (13:38)
[2017-04-16] MEDS ORDERED: DO NOT ADM ANY ANTICOAGULANT DRUGS PRN (13:45)
[2017-04-16] MEDS ORDERED: ONDANSETRON HCL 4 MG/2 ML VIAL IV PUSH ONE (15:06)
[2017-04-16] MEDS ORDERED: PHENYLEPH/NS 1000 MCG/10 ML SYR IV ONE (15:06)
[2017-04-16] MEDS ORDERED: PROPOFOL 200 MG/20 ML AMP IV ONE (15:06)
[2017-04-16] MEDS ORDERED: NEOSTIGMINE 3 MG/3 ML SYR IV ONE (15:06)
--- NOTE | 2017-04-16 18:36 | HHI.PR ---
Subjective Remarks Went for Ventriculostomy procedure . Had some bloody trach secretions today .Trach capped and doing well. She is responding better and seems to follow all commands. Objective Vital Signs Date Time Temp Pulse Resp B/P Pulse Ox O2 Delivery O2 Flow Rate FiO2 04/16/17 16:06 96.8 101 19 127/81 100 04/16/17 14:26 97.2 116 19 170/89 100 04/16/17 13:45 112 19 134/72 99 Nasal Cannula 2 04/16/17 13:30 115 19 142/76 100 Nasal Cannula 2 04/16/17 13:15 97.4 106 19 131/72 97 Nasal Cannula 2 04/16/17 09:57 110 04/16/17 08:52 T-Piece 21 04/16/17 08:17 96.6 111 19 134/88 99 04/16/17 08:15 100 Nasal Cannula 2.00 04/16/17 08:07 100 T-piece 5.00 04/16/17 08:06 100 5.00 21 04/16/17 06:00 96.5 107 18 99/52 94 04/16/17 02:00 T-Piece 21 04/16/17 00:00 96.7 104 20 120/68 99 04/15/17 20:58 99 T-piece 6.00 21 04/15/17 20:00 98.5 117 16 137/96 100 I/O 04/15/17 04/15/17 04/15/17 04/16/17 04/16/17 04/16/17 07:00 15:00 23:00 07:00 15:00 23:00 Intake Total 1200 ml Output Total 1 ml 25 ml Balance -1 ml 1175 ml Intake Oral 0 ml IV Total 100 ml Other 1100 ml Output Urine Total 0 ml Stool Total 1 ml Estimated Blood Loss 25 ml Other 0 ml # Voids 2 2 2 1 # Bowel Movements 1 1 Result Diagram: 04/15/1771604/15/17716 Procedures Replacement craniotomy bone flap 03/06/17 Side: Left Objective Remarks PHYSICAL EXAMINATION GENERAL: Averagely built young white female with no acute distress. HEENT: Head normocephalic. eyes clear. No bruits, no venous distension. Trach in capped . CHEST: Equal movements with clear lungs. CARDIAC: Heart sounds are regular. Tachycardic. No murmur. ABDOMEN: Soft and nontender.PEG +. Bowel sounds are active. EXTREMITIES: Weakness of the lower limbs and left side . She is awake SKIN:No Lesions. Assessment and Plan Assessment and Plan IMPRESSION 1. Respiratory failure with a history of MRSA pneumonia 2. Status post craniotomy for a subdural hematoma and traumatic brain injury 3. Right rib fractures with history of pneumothorax, resolved 4. Tachycardia Plan : 1 T Bar 24 % at HS 2. Suction trach prn . 3. Nebs qid , albuterol prn. 4. Cap Trach up to 16 hrs. daily.Use O2 2L. prn. 5. PT evaluation 6. Tube feeds as ordered. 7. Arrange rehab placement Michela Mohr MD April 16, 2017 18:36
[2017-04-16] MEDS: traZODone HCL 50 MG TAB PO SCH (21:08)
[2017-04-16] MEDS: CYCLOBENZAPRINE HCL 10 MG TAB PO PRN (21:16)
[2017-04-17] VITALS (10 sets, daily range): BP systolic 123–141; BP diastolic 62–86; PULSE 99–120; RESP 19–24; TEMP 97.6–100.2; O2SAT 98–100
[2017-04-17] MEDS: ARTIFICIAL TEARS OPTH SOLN 15 ML BTL EACH EYE SCH ×4 (05:06→23:15)
[2017-04-17] MEDS: PHENYTOIN SUSP 100 MG/4 ML CUP PEG SCH ×3 (05:06→20:30)
[2017-04-17] MEDS: METOPROLOL TARTRATE 50 MG TAB PO SCH ×3 (05:07→20:29)
[2017-04-17] MEDS: ACETAMINOPHEN/HYDROcodone 325 MG/7.5 MG TAB PEG PRN ×3 (05:07→17:59)
[2017-04-17] MEDS: ENOXAPARIN SODIUM 60 MG/0.6 ML SYRINGE SQ SCH ×2 (05:08→16:19)
[2017-04-17] MEDS: AMANTADINE HCL 100 MG CAP G-TUBE SCH ×2 (06:22→11:50)
[2017-04-17] MEDS: PHENobarbital ELIX 20 MG/5 ML CUP PEG SCH ×2 (08:57→20:29)
[2017-04-17] MEDS: LACOSAMIDE 50 MG TAB G-TUBE SCH ×2 (08:57→20:30)
[2017-04-17] MEDS: SODIUM CHLORIDE 0.9% FLUSH 5 ML FLUSH IVF SCH ×2 (08:57→21:00)
[2017-04-17] MEDS: LANSOPRAZOLE SOLUTAB 30 MG TAB NG SCH (08:57)
[2017-04-17] MEDS: DOCUSATE SODIUM 50 MG/SENNA 8.6 MG TAB PO SCH ×2 (08:57→20:29)
[2017-04-17] MEDS: BROMOCRIPTINE MESYLATE 2.5 MG TAB PO SCH ×2 (08:57→20:30)
[2017-04-17] MEDS: RESP: IPRATROPIUM 0.5 MG/2.5 ML NEB NEB SCH ×4 (10:16→22:09)
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
--- NOTE | 2017-04-17 15:57 | RADRPT ---
EXAM DATE/TIME: 04/17/2017 15:26 [place] COMPARISON: No previous studies available for comparison. INDICATIONS : Post operative shunt placement. RADIATION DOSE: 38.31 CTDIvol (mGy) MEDICAL HISTORY : Traumatic brain injury SURGICAL HISTORY : Craniotomy. ENCOUNTER: Initial ACUITY: 2 days PAIN SCALE: Non-responsive LOCATION: cranial TECHNIQUE: Multiple contiguous axial images were obtained of the head. Using automated exposure control and adj ustment of the mA and/or kV according to patient size, radiation dose was kept as low as reasonably a chievable to obtain optimal diagnostic quality images. FINDINGS: Compare April 12. Since the previous exam there is placement of a right frontal ventriculostomy tube wi th tip in the anterior portion of left lateral ventricle. Ventricular size is relatively stable. Ther e is an evolving infarct in the right occipital lobe and possibly in the left frontal lobe. There is a small amount of pneumocephalus. No new intracranial mass, hemorrhage or shift. Basal ganglia infarc tion stable. Previous left craniotomy. CONCLUSION: 1. Placement of right frontal ventriculostomy tube with tip in left lateral ventricle. Ventricular si ze is similar to April 12. Probable evolving infarct right occipital lobe and possibly left frontal lob e. Trace pneumocephalus. No new mass or shift. Karl Leone MD on April 17, 2017 at 15:49 Board Certified Radiologist. This report was verified electronically.
--- NOTE | 2017-04-17 18:50 | HHI.PR ---
Subjective Remarks Went for Ventriculostomy procedure . Had a good day .Trach capped and doing well. She is responding and seems to follow commands. Objective Vital Signs Date Time Temp Pulse Resp B/P Pulse Ox O2 Delivery O2 Flow Rate FiO2 04/17/17 16:14 97.6 100 19 123/70 100 04/17/17 12:34 97.8 120 19 132/62 98 04/17/17 09:29 100 Nasal Cannula 2.00 04/17/17 08:41 100 04/17/17 08:29 98.9 112 19 135/73 99 04/17/17 06:35 99 Nasal Cannula 2.00 04/17/17 05:09 98 Nasal Cannula 2.00 04/17/17 04:00 98.4 116 22 141/85 98 04/17/17 02:22 106 04/17/17 00:00 97.8 99 24 141/86 100 04/16/17 22:39 98 T-piece 5.00 21 04/16/17 22:39 100 T-piece 5.00 21 04/16/17 20:00 97.8 116 22 129/74 100 I/O 04/16/17 04/16/17 04/16/17 04/17/17 04/17/17 04/17/17 07:00 15:00 23:00 07:00 15:00 23:00 Intake Total 1200 ml 1068 ml Output Total 25 ml Balance 1175 ml 1068 ml Intake Oral 0 ml IV Total 100 ml 452 ml Tube Feeding 616 ml Other 1100 ml Output Urine Total 0 ml Estimated Blood Loss 25 ml Other 0 ml # Voids 2 1 3 2 3 Result Diagram: 04/15/1771604/15/17716 Procedures Replacement craniotomy bone flap 03/06/17 Side: Left Objective Remarks PHYSICAL EXAMINATION GENERAL: Averagely built young white female with no acute distress. HEENT: Head normocephalic. eyes clear. No bruits, no venous distension. Trach is capped .Secretion s are clear. CHEST: Equal movements with clear lungs. CARDIAC: Heart sounds are regular. Tachycardic. No murmur. ABDOMEN: Soft and nontender.PEG +. Bowel sounds are active. EXTREMITIES: Weakness of the lower limbs and left side . She is awake SKIN:No Lesions. Assessment and Plan Assessment and Plan IMPRESSION 1. Respiratory failure with a history of MRSA pneumonia 2. Status post craniotomy for a subdural hematoma and traumatic brain injury 3. Right rib fractures with history of pneumothorax, resolved 4. Tachycardia Plan : 1 T Bar 24 % at HS 2. Suction trach prn . 3. Nebs qid , albuterol prn. 4. Cap Trach up to 16 hrs. daily. Use O2 2L. prn. 5. PT evaluation 6. Tube feeds as ordered. 7. CBC ,BMP. Michela Mohr MD April 17, 2017 18:50
[2017-04-17] MEDS: traZODone HCL 50 MG TAB PO SCH (20:29)
[2017-04-17] MEDS: ACETAMINOPHEN 325 MG TAB PO PRN (21:48)
[2017-04-17] MEDS: CYCLOBENZAPRINE HCL 10 MG TAB PO PRN (23:11)
[2017-04-18] VITALS (10 sets, daily range): BP systolic 115–138; BP diastolic 66–82; PULSE 102–119; RESP 20; TEMP 95.7–99; O2SAT 97–100
[2017-04-18] MEDS: ACETAMINOPHEN/HYDROcodone 325 MG/7.5 MG TAB PEG PRN ×3 (02:18→22:36)
[2017-04-18] MEDS: ARTIFICIAL TEARS OPTH SOLN 15 ML BTL EACH EYE SCH ×4 (06:00→22:36)
[2017-04-18] MEDS: METOPROLOL TARTRATE 50 MG TAB PO SCH ×3 (06:14→21:16)
[2017-04-18] MEDS: AMANTADINE HCL 100 MG CAP G-TUBE SCH ×2 (06:14→11:45)
[2017-04-18] MEDS: ENOXAPARIN SODIUM 60 MG/0.6 ML SYRINGE SQ SCH ×2 (06:14→18:25)
[2017-04-18] MEDS: PHENYTOIN SUSP 100 MG/4 ML CUP PEG SCH ×3 (06:14→22:36)
[2017-04-18] MEDS: RESP: IPRATROPIUM 0.5 MG/2.5 ML NEB NEB SCH ×4 (08:44→19:37)
[2017-04-18] MEDS: BROMOCRIPTINE MESYLATE 2.5 MG TAB PO SCH ×2 (09:09→21:16)
[2017-04-18] MEDS: LANSOPRAZOLE SOLUTAB 30 MG TAB NG SCH (09:09)
[2017-04-18] MEDS: LACOSAMIDE 50 MG TAB G-TUBE SCH ×2 (09:09→21:17)
[2017-04-18] MEDS: DOCUSATE SODIUM 50 MG/SENNA 8.6 MG TAB PO SCH ×2 (09:09→21:18)
[2017-04-18] MEDS: SODIUM CHLORIDE 0.9% FLUSH 5 ML FLUSH IVF SCH ×2 (09:10→21:17)
[2017-04-18] MEDS: PHENobarbital ELIX 20 MG/5 ML CUP PEG SCH ×2 (09:10→21:16)
[2017-04-18] MEDS: ACETAMINOPHEN 325 MG TAB PO PRN (09:13)
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
[2017-04-18] MEDS: traZODone HCL 50 MG TAB PO SCH (21:17)
--- NOTE | 2017-04-18 22:45 | HHI.NSPN ---
History Chief Complaint: nonverbal Interval History 03/06/17: Replacement craniotomy bone flap 03/14/17: Heparin IV started for DVT. CT Head satisfactory 04/16/17: Status post ventriculoperitoneal shunt placement Exam Results Vital Signs Date Time Temp Pulse Resp B/P Pulse Ox O2 Delivery O2 Flow Rate FiO2 04/18/17 20:00 98.0 118 20 128/71 98 04/18/17 19:39 T-piece 21 04/18/17 16:15 5.00 Intake and Output 04/17/17 04/17/17 04/18/17 08:00 16:00 00:00 Intake Total 1068 ml Balance 1068 ml Physical Examination HEENT: Surgical incision well approximated w/o any evident drainage, erythema. No subgaleal hematoma noted. Dressings are dry and intact Resp: Clear and regular CV: Heart rate regular GI: Abdomen soft with no obvious tenderness. Bowel sounds present. PEG tube in place. Abdominal incision dry and intact. Neuro: Patient has been more lethargic today. I saw her last evening on 04/17/17 and discuss her progress with her at that time. She was very awake, smiling and following commands with both of her upper extremities. Today according to the family she has been much more lethargic, arousing briefly when stimulated. Medical Decision Making Impression and Plan Impression: 1. Patient's mental status appears somewhat diminished today following what appeared to be good initial improvement on 04/17/17 after ventriculoperitoneal shunt placement on 04/16/17. Plan: Discussed with the patient's mother in the room today. We will proceed with a follow-up CT scan due to mental status changes. She has had a low-grade fever. No obvious wound site infections. Victor Hugo Gibson MD April 18, 2017 22:45
[2017-04-18] MEDS: CYCLOBENZAPRINE HCL 10 MG TAB PO PRN (23:44)
[2017-04-19] VITALS (12 sets, daily range): BP systolic 117–146; BP diastolic 62–82; PULSE 100–120; RESP 16–21; TEMP 98.6–99.4; O2SAT 99–100
[2017-04-19] MEDS: ENOXAPARIN SODIUM 60 MG/0.6 ML SYRINGE SQ SCH ×2 (06:13→18:01)
[2017-04-19] MEDS: PHENYTOIN SUSP 100 MG/4 ML CUP PEG SCH ×3 (06:13→23:03)
[2017-04-19] MEDS: AMANTADINE HCL 100 MG CAP G-TUBE SCH ×2 (06:13→11:55)
[2017-04-19] MEDS: METOPROLOL TARTRATE 50 MG TAB PO SCH ×3 (06:13→23:03)
[2017-04-19] MEDS: ARTIFICIAL TEARS OPTH SOLN 15 ML BTL EACH EYE SCH ×4 (06:14→23:04)
[2017-04-19] MEDS: RESP: IPRATROPIUM 0.5 MG/2.5 ML NEB NEB SCH ×4 (08:00→19:40)
[2017-04-19] MEDS: DOCUSATE SODIUM 50 MG/SENNA 8.6 MG TAB PO SCH ×2 (08:04→23:02)
[2017-04-19] MEDS: LANSOPRAZOLE SOLUTAB 30 MG TAB NG SCH (08:04)
[2017-04-19] MEDS: LACOSAMIDE 50 MG TAB G-TUBE SCH ×2 (08:04→23:02)
[2017-04-19] MEDS: BROMOCRIPTINE MESYLATE 2.5 MG TAB PO SCH ×2 (08:04→23:02)
[2017-04-19] MEDS: SODIUM CHLORIDE 0.9% FLUSH 5 ML FLUSH IVF SCH ×2 (08:05→21:00)
[2017-04-19] MEDS: PHENobarbital ELIX 20 MG/5 ML CUP PEG SCH ×2 (08:05→23:03)
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
--- NOTE | 2017-04-19 10:42 | RADRPT ---
EXAM DATE/TIME: 04/19/2017 10:23 [place] COMPARISON: CT BRAIN W/O CONTRAST, April 17, 2017, 15:26. INDICATIONS : Altered mental status. RADIATION DOSE: 56.35 CTDIvol (mGy) MEDICAL HISTORY : Cardiovascular disease. Seizures. TBI SURGICAL HISTORY : Craniotomy. ENCOUNTER: Initial ACUITY: 1 day PAIN SCALE: Non-responsive LOCATION: Bilateral cranial TECHNIQUE: Multiple contiguous axial images were obtained of the head. Using automated exposure control and adj ustment of the mA and/or kV according to patient size, radiation dose was kept as low as reasonably a chievable to obtain optimal diagnostic quality images. FINDINGS: There is a right frontal ventriculostomy catheter present with distal tip in the left frontal horn. T here is stable edema and mild blood products along the track of the ventriculostomy. Trace blood prod ucts layer dependently in the left occipital horn. Ventricular size is stable. There is a stable low attenuation in the right occipital lobe. No midline shift or herniation is present. There is a persis tent small amount of extra-axial air anteriorly. Postsurgical changes related to recent left frontal craniotomy remain present. CONCLUSION: 1. No significant change is appreciated compared to the study from 2 days ago. There is persistent ed josé miguel and a small amount of blood products along the frontal ventriculostomy catheter tract with trace blood products in the left occipital horn. Overall, ventricle size is stable. 2. Stable low attenuation in the right occipital lobe. 3. Stable trace extra-axial air. Paul Warren MD on April 19, 2017 at 10:36 Board Certified Radiologist. This report was verified electronically.
[2017-04-19] MEDS: ACETAMINOPHEN/HYDROcodone 325 MG/7.5 MG TAB PEG PRN ×2 (12:36→23:26)
[2017-04-19 15:49] LABS: BLOOD, URINE SMALL (NEG); COMMENT (UR) CULT NOT INDICATED; CULTURE IF INDICATED CULT NOT INDICATED; GLUCOSE,URINE NEG (NEG); KETONE, URINE NEG (NEG); NITRITE,URINE NEG (NEG); SQUAMOUS EPITHELIAL CELL URINE <1 /hpf (0-5); URINE COLOR LIGHT-YELLOW (YELLW/STRAW)
--- NOTE | 2017-04-19 17:54 | HHI.NSPN ---
History Chief Complaint: nonverbal Interval History 03/06/17: Replacement craniotomy bone flap 03/14/17: Heparin IV started for DVT. CT Head satisfactory 04/16/17: Status post ventriculoperitoneal shunt placement Exam Results Vital Signs Date Time Temp Pulse Resp B/P Pulse Ox O2 Delivery O2 Flow Rate FiO2 04/19/17 16:45 99 Room Air 21 04/19/17 16:38 99.2 100 20 117/65 04/18/17 22:35 5.00 Intake and Output 04/18/17 04/18/17 04/19/17 08:00 16:00 00:00 Intake Total 660 ml 400 ml 915 ml Balance 660 ml 400 ml 915 ml Physical Examination Patient not examined today. Having [place] catheter placed. Family indicates patient with some upper outer gaze on the left. Still not responding as well as she did initial day postoperative. Lab, Micro, Other Results Laboratory Tests Test 04/19/17 15:30 Urine Color LIGHT-YELLOW Urine Turbidity HAZY Urine pH 8.0 Urine Specific [place] 1.004 Urine Protein NEG mg/dL Urine Glucose (UA) NEG mg/dL Urine Ketones NEG mg/dL Urine Occult Blood SMALL Urine Nitrite NEG Urine Bilirubin NEG Urine Urobilinogen LESS THAN 2.0 MG/DL Urine Leukocyte Esterase NEG Urine RBC 1 /hpf Urine WBC 2 /hpf Urine Squamous Epithelial <1 /hpf Cells Urine Yeast (Budding) Microscopic Urinalysis Comment CULT NOT INDICATED Medical Decision Making Impression and Plan Impression: 1. Patient's mental status continues to be diminished today following what appeared to be good initial improvement on 04/17/17 after ventriculoperitoneal shunt placement on 04/16/17. Plan: Urinalysis negative. Labs reviewed Possible seizure activity EEG Victor Hugo Gibson MD April 19, 2017 17:53
[2017-04-19 20:43] LABS: AUTOMATED NEUTROPHIL # 4.7 TH/MM3 (1.8-7.7); BASOPHIL # 0.1 TH/MM3 (0-0.2); BASOPHIL % 0.8 % (0.0-2.0); EOSINOPHIL # 0.3 TH/MM3 (0-0.4); EOSINOPHIL % 3.8 % (0.0-4.0); HEMATOCRIT 36.4 % (35.0-46.0); HEMO FLAGS DIFF FINAL; LYMPH % 22.6 % (9.0-44.0); LYMPHOCYTE # 1.7 TH/MM3 (1.0-4.8); MEAN CELL VOLUME 83.2 FL (80.0-100.0); MEAN CORPUSCULAR HEMOGLOBIN 28.7 PG (27.0-34.0); MEAN CORPUSCULAR HGB CONC 34.5 % (32.0-36.0); MONO % 8.7 % (0.0-8.0); NEUT % 64.1 % (16.0-70.0); PLATELET COUNT 300 TH/MM3 (150-450); RED BLOOD COUNT 4.38 MIL/MM3 (4.00-5.30); WHITE BLOOD COUNT 7.4 TH/MM3 (4.0-11.0)
[2017-04-19 20:52] LABS: BICARBONATE 30.1 MEQ/L (21.0-32.0); POTASSIUM 3.9 MEQ/L (3.5-5.1)
[2017-04-19 20:55] LABS: PHENOBARBITAL 22.2 MCG/ML (15.0-40.0)
[2017-04-19] MEDS: traZODone HCL 50 MG TAB PO SCH (23:03)
[2017-04-20] VITALS (11 sets, daily range): BP systolic 111–133; BP diastolic 62–89; PULSE 97–123; RESP 18–20; TEMP 97.1–99.6; O2SAT 96–100
[2017-04-20] MEDS: METOPROLOL TARTRATE 50 MG TAB PO SCH ×3 (06:31→21:26)
[2017-04-20] MEDS: PHENYTOIN SUSP 100 MG/4 ML CUP PEG SCH ×3 (06:32→22:20)
[2017-04-20] MEDS: ENOXAPARIN SODIUM 60 MG/0.6 ML SYRINGE SQ SCH ×2 (06:32→17:56)
[2017-04-20] MEDS: AMANTADINE HCL 100 MG CAP G-TUBE SCH ×2 (06:32→12:47)
[2017-04-20] MEDS: ARTIFICIAL TEARS OPTH SOLN 15 ML BTL EACH EYE SCH ×4 (06:32→23:05)
[2017-04-20] MEDS: RESP: IPRATROPIUM 0.5 MG/2.5 ML NEB NEB SCH ×4 (09:12→20:19)
[2017-04-20] MEDS: DOCUSATE SODIUM 50 MG/SENNA 8.6 MG TAB PO SCH ×2 (09:13→21:26)
[2017-04-20] MEDS: PHENobarbital ELIX 20 MG/5 ML CUP PEG SCH ×2 (09:13→21:27)
[2017-04-20] MEDS: LACOSAMIDE 50 MG TAB G-TUBE SCH ×2 (09:13→21:26)
[2017-04-20] MEDS: SODIUM CHLORIDE 0.9% FLUSH 5 ML FLUSH IVF SCH ×2 (09:13→21:27)
[2017-04-20] MEDS: LANSOPRAZOLE SOLUTAB 30 MG TAB NG SCH (09:13)
[2017-04-20] MEDS: BROMOCRIPTINE MESYLATE 2.5 MG TAB PO SCH ×2 (09:13→21:26)
[2017-04-20] MEDS: ACETAMINOPHEN/HYDROcodone 325 MG/7.5 MG TAB PEG PRN ×2 (09:34→19:09)
--- NOTE | 2017-04-20 12:04 | HHI.NSPN ---
History Chief Complaint: nonverbal Interval History 04/20/17: Pt awakens to voice. Reportedly less alert for last 2 days. Not following commands for me. System Review Comments Not able to obtain given level of alertness/ clinical condition. Exam Results Vital Signs Date Time Temp Pulse Resp B/P Pulse Ox O2 Delivery O2 Flow Rate FiO2 04/20/17 11:45 97.9 110 20 130/80 98 04/20/17 09:12 T-piece 5.00 21 Intake and Output 04/19/17 04/19/17 04/20/17 08:00 16:00 00:00 Intake Total 550 ml Balance 550 ml Physical Examination Resp: CTA bilaterally Heart: NSR no murmurs Abd: Soft positive bs Skin: Incisions clean and dry. No signs of infection Muscle: Not following for muscle testing. Neuro: Pt opens eyes to voice. Pupils 4mm bilaterally. Not following commands for me. Lab, Micro, Other Results Last Impressions Head CT 04/19/17 0000 Signed Impressions: Service Date/Time: Wednesday, April 19, 2017 10:23 - CONCLUSION: 1. No significant change is appreciated compared to the study from 2 days ago. There is persistent edema and a small amount of blood products along the frontal ventriculostomy catheter tract with trace blood products in the left occipital horn. Overall, ventricle size is stable. 2. Stable low attenuation in the right occipital lobe. 3. Stable trace extra-axial air. Paul Warren MD Chest X-Ray 04/08/17 0000 Signed Impressions: Service Date/Time: Saturday, April 08, 2017 10:20 - CONCLUSION: No acute disease. Jesse Waite Jr., MD Upper Extremity Ultrasound 03/13/17 0000 Signed Impressions: Service Date/Time: Monday, March 13, 2017 21:49 - CONCLUSION: Acute occlusive thrombus involving the basilic and brachial veins. Jesse Waite Jr., MD Brain MRI 03/06/17 0000 Signed Impressions: Service Date/Time: Monday, March 06, 2017 20:35 - CONCLUSION: Fluid accumulation over the left frontal convexity not well seen or appreciated on CT examination. Mild associated mass effect. Paul Bob MD Laboratory Tests Test 04/19/17 04/19/17 15:30 20:19 Urine Color LIGHT-YELLOW Urine Turbidity HAZY Urine pH 8.0 Urine Specific [place] 1.004 Urine Protein NEG mg/dL Urine Glucose (UA) NEG mg/dL Urine Ketones NEG mg/dL Urine Occult Blood SMALL Urine Nitrite NEG Urine Bilirubin NEG Urine Urobilinogen LESS THAN 2.0 MG/DL Urine Leukocyte Esterase NEG Urine RBC 1 /hpf Urine WBC 2 /hpf Urine Squamous Epithelial <1 /hpf Cells Urine Yeast (Budding) Microscopic Urinalysis Comment CULT NOT INDICATED White Blood Count 7.4 TH/MM3 Red Blood Count 4.38 MIL/MM3 Hemoglobin 12.6 GM/DL Hematocrit 36.4 % Mean Corpuscular Volume 83.2 FL Mean Corpuscular Hemoglobin 28.7 PG Mean Corpuscular Hemoglobin 34.5 % Concent Red Cell Distribution Width 16.0 % Platelet Count 300 TH/MM3 Mean Platelet Volume 8.3 FL Neutrophils (%) (Auto) 64.1 % Lymphocytes (%) (Auto) 22.6 % Monocytes (%) (Auto) 8.7 % Eosinophils (%) (Auto) 3.8 % Basophils (%) (Auto) 0.8 % Neutrophils # (Auto) 4.7 TH/MM3 Lymphocytes # (Auto) 1.7 TH/MM3 Monocytes # (Auto) 0.6 TH/MM3 Eosinophils # (Auto) 0.3 TH/MM3 Basophils # (Auto) 0.1 TH/MM3 CBC Comment DIFF FINAL Differential Comment Sodium Level 137 MEQ/L Potassium Level 3.9 MEQ/L Chloride Level 99 MEQ/L Carbon Dioxide Level 30.1 MEQ/L Anion Gap 8 MEQ/L Blood Urea Nitrogen 8 MG/DL Creatinine 0.26 MG/DL Estimat Glomerular Filtration 322 ML/MIN Rate Random Glucose 120 MG/DL Calcium Level 9.2 MG/DL Phenytoin (Dilantin) Level 19.1 MCG/ML Phenobarbital Level 22.2 MCG/ML 04/19/17 04/19/17 04/20/17 15:00 23:00 07:00 Intake Total 550 ml 560 ml Balance 550 ml 560 ml Tube Feeding 560 ml Other 550 ml # Voids 1 2 1 # Bowel Movements 1 1 Medical Decision Making Impression and Plan A: 22 y/o FM s/p right bone flap replacement and R[employer]ER shunt placement on 04/16. Reportedly decreased MS last 3 days. EEG ordered by Dr. Gibson. f/U CT head stable. Anticonvulsant levels stable. Na level good. UA without infection. P: Continue to monitor neuro exam EEG not done yet as requested by Dr. Gibson Continue with PT. Nilson Ambrocio April 20, 2017 12:04
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
[2017-04-20] MEDS: POLYMYXIN/TRIMETHOPRIM OPHT SOLN 10 ML BTL LEFT EYE SCH ×3 (14:42→23:05)
--- NOTE | 2017-04-20 19:18 | MG ---
cc: DALY AMIN Lab No: [id number] Date: 04/20/17 Age: 22 Sex: F Race: The patient is trached. Hyperventilation not performed. A history of focal left hemisphere slowing with some sharp activity yesterday status post craniotomy and bone flap. Seizures. MEDICATIONS 1. [place]. 2. Dilantin. 3. Phenobarb. 4. Vimpat. Recording shows a symmetric 10 Hz 60 microvolt posterior rhythm except over the right posterior temporal lobe. There is some theta slowing to 6 Hz, at times somewhat sharply contoured. Occasional phase reversing spike is seen such as EPOC 23 over the left posterior temporal head region and this continues pretty much through the recording that there is some focal slowing there and at times sharply contoured. This is basically the same as the prior day's EEG. No prolonged seizure activity is noted. Photic stimulation was performed without significant posterior driving. IMPRESSION Focal left posterior temporal lobe slowing with some epileptiform features. If this is in the area of the bone flap some of this could be breach rhythm. Clinical correlation is needed but no prolonged or active seizure are noted throughout the recording. MD CHANTAL Coleman/JAYDEN /6:58 PM /7:12 PM
[2017-04-20] MEDS: traZODone HCL 50 MG TAB PO SCH (21:26)
[2017-04-20] MEDS: CYCLOBENZAPRINE HCL 10 MG TAB PO PRN (22:20)
[2017-04-21] VITALS (11 sets, daily range): BP systolic 104–133; BP diastolic 66–75; PULSE 100–127; RESP 18–20; TEMP 97.2–98.9; O2SAT 97–100
[2017-04-21] MEDS: ACETAMINOPHEN/HYDROcodone 325 MG/7.5 MG TAB PEG PRN ×2 (04:06→18:48)
[2017-04-21] MEDS: PHENYTOIN SUSP 100 MG/4 ML CUP PEG SCH ×3 (04:58→22:26)
[2017-04-21] MEDS: METOPROLOL TARTRATE 50 MG TAB PO SCH ×3 (04:58→22:25)
[2017-04-21] MEDS: ENOXAPARIN SODIUM 60 MG/0.6 ML SYRINGE SQ SCH ×2 (04:59→17:37)
[2017-04-21] MEDS: ARTIFICIAL TEARS OPTH SOLN 15 ML BTL EACH EYE SCH ×4 (05:57→23:24)
[2017-04-21] MEDS: AMANTADINE HCL 100 MG CAP G-TUBE SCH ×2 (05:57→14:29)
[2017-04-21] MEDS: POLYMYXIN/TRIMETHOPRIM OPHT SOLN 10 ML BTL LEFT EYE SCH ×4 (05:57→23:23)
[2017-04-21] MEDS: LACOSAMIDE 50 MG TAB G-TUBE SCH ×2 (08:21→20:38)
[2017-04-21] MEDS: BROMOCRIPTINE MESYLATE 2.5 MG TAB PO SCH ×2 (08:21→20:38)
[2017-04-21] MEDS: DOCUSATE SODIUM 50 MG/SENNA 8.6 MG TAB PO SCH ×2 (08:21→20:38)
[2017-04-21] MEDS: LANSOPRAZOLE SOLUTAB 30 MG TAB NG SCH (08:21)
[2017-04-21] MEDS: PHENobarbital ELIX 20 MG/5 ML CUP PEG SCH ×2 (08:33→20:38)
[2017-04-21] MEDS: SODIUM CHLORIDE 0.9% FLUSH 5 ML FLUSH IVF SCH ×2 (08:34→20:38)
[2017-04-21] MEDS: RESP: IPRATROPIUM 0.5 MG/2.5 ML NEB NEB SCH ×4 (09:35→19:59)
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
[2017-04-21] MEDS ORDERED: CYCL1TAB29 PO (12:42)
[2017-04-21] MEDS ORDERED: IPRA0.02 NEB (12:42)
[2017-04-21] MEDS ORDERED: LACO50 G-TUBE (12:42)
[2017-04-21] MEDS ORDERED: TRAZ50TA12 PO (12:42)
[2017-04-21] MEDS ORDERED: AMAN100UDC PO (12:42)
[2017-04-21] MEDS ORDERED: OXYC1CON3 PO (12:42)
[2017-04-21] MEDS ORDERED: PHEN20EL3 PEG (12:42)
[2017-04-21] MEDS ORDERED: METO-309 PO (12:42)
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
--- NOTE | 2017-04-21 14:50 | HHI.NSPN ---
(Russell Lagunaheather PELAYO) History Chief Complaint: Unable to obtain due to patient's mental status (Russell Lagunaheathre PELAYO) Interval History Ms. Laurent is a 22 y/o female with a history of TBI 03/05: To OR for: Replacement left craniotomy bone flap Left frontotemporoparietal duraplasty 03/06: POD # 1 replacement craniotomy bone flap 03/07: today mildly opening eyes, however not following commands 03/08: f/u CT Head completed, more awake today 03/09: Patient opens eyes spontaneously but not tracking 03/10: Patient opens eyes to noxious stimuli, Nursing reports she is more responsive to than staff 03/11: Patient transferred to regular med/surg floor 03/12: Eyes open, smiles, still tachycardiac 03/13: Patient drowsy today, minimally follows commands. 03/14/17: Heparin IV started for DVT. CT Head satisfactory 03/16: Patient awake, OT at bedside doing LUE exercises 03/17: Patient sleeping, not responding to verbal stimuli, no apparent distress. Samantha to craniotomy incision removed yesterday. 03/18: Patient awake, follows some commands. 03/19: Patient asleep but awakens to verbal stimuli, follows commands but not consistently. 03/20: Patient awakes, smiles when asked to, follows commands but not consistently, NAD. states she was tachycardiac in the 140s earlier and was given Roxicodone. 03/21: Patient awakes, follows commands but not consistently, no new issues 03/23: Patient is awake, follows some commands inconsistently. states she has been "acting funny" today. 03/25: Patient is asleep when seen. She turns to the sound of this practitioner's voice and flutters her eyelids. She did smile to command but did not follow any other commands. She was seen moving the right leg spontaneously. Her stated Therapy had just worked with her. 03/27: Patient asleep when initially seen this morning and did not respond to verbal stimuli. When seen this afternoon the patient did finally start to flutter her eyes and smile upon command after being coaxed. She was noted to spontaneously move the RUE & BLE. She did move the BLE to noxious stimuli applied to the LUE. It was difficult to tell if she did attempt to wiggle the toes to command because she would move her feet. 03/30: Patient asleep when seen. No response to verbal stimuli initially. Did not follow any commands. Did have facial grimace to noxious stimuli to BUE & RLE but withdrew to LLE. She did smile to verbal stimuli as this practitioner was finishing examining her. 03/31: The patient was asleep but did response to verbal coaxing to smile and stick her tongue out. A CT brain yesterday was concerning for development of hydrocephalus. The known left frontal fluid collection was not evident. 04/01: The patient was asleep but responded to verbal to verbal stimuli. 04/03: The patient was asleep but with much coaxing did wake up and follow some commands. 04/06: The patient was asleep when seen. She did not wake up to verbal stimuli. She did withdraw the RLE and flex the RUE to noxious stimuli. It is difficult to ascertain for certain if she had any facial grimace to noxious stimuli of the extremities. 04/08: Patient asleep but opens her eyes to verbal stimuli with coaxing. She did smile and move the RLE to command. She flexed the RUE and withdrew the left foot to noxious stimuli. 04/09: Patient with eyes closed but did open to verbal stimuli with coaxing. She smiled and stuck out her tongue as well with coaxing. She is spontaneously moving the RLE but nonpurposefully. 04/13: The patient was initially seen in the hallway sitting in a cardiac chair with her pushing her around the floor. She intermittently opened her eyes spontaneously and did smile to command. When seen a little later she was asleep but did finally open her eyes with some coaxing. She again smiled to command. She followed her 's direction to lift her right leg. Otherwise she did not follow any commands. 04/16/17: Status post ventriculoperitoneal shunt placement 04/20/17: Pt awakens to voice. Reportedly less alert for last 2 days. Not following commands for me. 04/21: Patient asleep and did not awaken to verbal or noxious stimuli. states she was awake & alert this morning when she had family in to visit. She did have an EEG done yesterday. (Bryn Laguna) System Review Comments Unable to obtain due to patient's mental status (Bryn Laguna) Exam Results Vital Signs Date Time Temp Pulse Resp B/P Pulse Ox O2 Delivery O2 Flow Rate FiO2 04/21/17 11:30 97.7 127 20 113/67 97 04/21/17 09:51 21 04/21/17 09:36 T-piece 5.00 Intake and Output 04/20/17 04/20/17 04/21/17 08:00 16:00 00:00 Intake Total 560 ml 450 ml 948 ml Balance 560 ml 450 ml 948 ml (Bryn Laguna) Physical Examination HEENT: Surgical incision well healed w/o any evident drainage, erythema or streaking. 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 Resp: CTAB w/o W/R/R, equal excursion, non-laboured, trached w/cap on. CV: RRR w/o M/G/R but fast, cap refill < 2 sec, radial & pedal pulses 2+ bilaterally, no pedal edema. GI: Abdomen soft & nontender, bowel sounds present. PEG tube clamped. RUQ surgical incision well-approximated w/steri-strips, no evident drainage, erythema or streaking. Neuro: Asleep. No eye opening to noxious stimuli but did have facial grimace. Moved RLE to noxious stimuli, slight movement LLE, no movement to BUE. (Bryn Laguna) Medical Decision Making Impression and Plan 22 y/o female with a history of TBI Upper extremity venous thrombosis (1) Hydrocephalus Hydrocephalus status post traumatic brain injury CT brain w/o significant change, persistent edema and a small amount of blood products along the frontal ventriculostomy catheter tract with trace blood products in the left occipital horn, ventricle size is stable; stable low attenuation right occipital lobe EEG w/focal left posterior temporal lobe slowing w/some epileptiform features, if in region of bone flap could represent breach rhythm, no prolonged or active seizure noted POD #43 () s/p: 1. Replacement left craniotomy bone flap 2. Left frontotemporoparietal duraplasty POD #5 () s/p: Right frontal lele hole for ventriculoperitoneal shunt placement Patient somnolent when seen, did have some movement of BLE R>L to noxious stimuli, reports patient awake & active this morning with family present Plan: Continue neuro checks Continue anticonvulsants per Neurology Continue Lovenox for upper extremity DVT Continue mechanical DVT prophylaxis Primary management & HR mgmt per Hospitalist Per she has been accepted at [facility] (Bryn Laguna) Attending Statement The exam, history, and the medical decision-making described in the above note were completed with the assistance of the mid-level provider. I reviewed and agree with the findings presented. I attest that I had a [id number] encounter with the patient on the same day, and personally performed and documented my assessment and findings in the medical record. (Nura Ko MD) Bryn Laguna April 21, 2017 14:50 Nura Ko MD April 21, 2017 16:55
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
[2017-04-21] MEDS: traZODone HCL 50 MG TAB PO SCH (20:38)
[2017-04-21] MEDS: CYCLOBENZAPRINE HCL 10 MG TAB PO PRN (23:23)
[2017-04-22] VITALS (10 sets, daily range): BP systolic 116–137; BP diastolic 69–91; PULSE 101–120; RESP 18–20; TEMP 96.6–99.6; O2SAT 96–100
[2017-04-22] MEDS: ENOXAPARIN SODIUM 60 MG/0.6 ML SYRINGE SQ SCH ×2 (05:16→18:00)
[2017-04-22] MEDS: PHENYTOIN SUSP 100 MG/4 ML CUP PEG SCH ×3 (05:17→21:17)
[2017-04-22] MEDS: METOPROLOL TARTRATE 50 MG TAB PO SCH ×2 (05:17→21:18)
[2017-04-22] MEDS: ACETAMINOPHEN/HYDROcodone 325 MG/7.5 MG TAB PEG PRN ×3 (05:17→21:22)
[2017-04-22] MEDS: POLYMYXIN/TRIMETHOPRIM OPHT SOLN 10 ML BTL LEFT EYE SCH ×3 (05:18→18:00)
[2017-04-22] MEDS: ARTIFICIAL TEARS OPTH SOLN 15 ML BTL EACH EYE SCH ×3 (05:18→18:00)
[2017-04-22] MEDS: AMANTADINE HCL 100 MG CAP G-TUBE SCH (06:12)
[2017-04-22] MEDS: SODIUM CHLORIDE 0.9% FLUSH 5 ML FLUSH IVF SCH ×2 (09:00→21:00)
[2017-04-22] MEDS: LANSOPRAZOLE SOLUTAB 30 MG TAB NG SCH (09:00)
[2017-04-22] MEDS: RESP: IPRATROPIUM 0.5 MG/2.5 ML NEB NEB SCH ×3 (09:05→21:37)
[2017-04-22] MEDS ORDERED: AMAN100UDC G-TUBE (10:37)
[2017-04-22] MEDS: AMANTADINE HCL SOLN 100 MG/10 ML UDC G-TUBE SCH (12:00)
--- NOTE | 2017-04-22 12:26 | HHI.NSPN ---
(Russell Lagunaheather PELAYO) History Chief Complaint: Unable to obtain due to patient's mental status (Russell Lagunaheather PELAYO) Interval History Ms. Laurent is a 22 y/o female with a history of TBI 03/05: To OR for: Replacement left craniotomy bone flap Left frontotemporoparietal duraplasty 03/06: POD # 1 replacement craniotomy bone flap 03/07: today mildly opening eyes, however not following commands 03/08: f/u CT Head completed, more awake today 03/09: Patient opens eyes spontaneously but not tracking 03/10: Patient opens eyes to noxious stimuli, Nursing reports she is more responsive to than staff 03/11: Patient transferred to regular med/surg floor 03/12: Eyes open, smiles, still tachycardiac 03/13: Patient drowsy today, minimally follows commands. 03/14/17: Heparin IV started for DVT. CT Head satisfactory 03/16: Patient awake, OT at bedside doing LUE exercises 03/17: Patient sleeping, not responding to verbal stimuli, no apparent distress. Samantha to craniotomy incision removed yesterday. 03/18: Patient awake, follows some commands. 03/19: Patient asleep but awakens to verbal stimuli, follows commands but not consistently. 03/20: Patient awakes, smiles when asked to, follows commands but not consistently, NAD. states she was tachycardiac in the 140s earlier and was given Roxicodone. 03/21: Patient awakes, follows commands but not consistently, no new issues 03/23: Patient is awake, follows some commands inconsistently. states she has been "acting funny" today. 03/25: Patient is asleep when seen. She turns to the sound of this practitioner's voice and flutters her eyelids. She did smile to command but did not follow any other commands. She was seen moving the right leg spontaneously. Her stated Therapy had just worked with her. 03/27: Patient asleep when initially seen this morning and did not respond to verbal stimuli. When seen this afternoon the patient did finally start to flutter her eyes and smile upon command after being coaxed. She was noted to spontaneously move the RUE & BLE. She did move the BLE to noxious stimuli applied to the LUE. It was difficult to tell if she did attempt to wiggle the toes to command because she would move her feet. 03/30: Patient asleep when seen. No response to verbal stimuli initially. Did not follow any commands. Did have facial grimace to noxious stimuli to BUE & RLE but withdrew to LLE. She did smile to verbal stimuli as this practitioner was finishing examining her. 03/31: The patient was asleep but did response to verbal coaxing to smile and stick her tongue out. A CT brain yesterday was concerning for development of hydrocephalus. The known left frontal fluid collection was not evident. 04/01: The patient was asleep but responded to verbal to verbal stimuli. 04/03: The patient was asleep but with much coaxing did wake up and follow some commands. 04/06: The patient was asleep when seen. She did not wake up to verbal stimuli. She did withdraw the RLE and flex the RUE to noxious stimuli. It is difficult to ascertain for certain if she had any facial grimace to noxious stimuli of the extremities. 04/08: Patient asleep but opens her eyes to verbal stimuli with coaxing. She did smile and move the RLE to command. She flexed the RUE and withdrew the left foot to noxious stimuli. 04/09: Patient with eyes closed but did open to verbal stimuli with coaxing. She smiled and stuck out her tongue as well with coaxing. She is spontaneously moving the RLE but nonpurposefully. 04/13: The patient was initially seen in the hallway sitting in a cardiac chair with her pushing her around the floor. She intermittently opened her eyes spontaneously and did smile to command. When seen a little later she was asleep but did finally open her eyes with some coaxing. She again smiled to command. She followed her 's direction to lift her right leg. Otherwise she did not follow any commands. 04/16/17: Status post ventriculoperitoneal shunt placement 04/20/17: Pt awakens to voice. Reportedly less alert for last 2 days. Not following commands for me. 04/21: Patient asleep and did not awaken to verbal or noxious stimuli. states she was awake & alert this morning when she had family in to visit. She did have an EEG done yesterday. 04/22: Patient asleep but did awaken to verbal stimuli. She did smile to command. She is spontaneously moving the RUE & RLE but not to command. Neurology discussed the EEG with the patient's family yesterday. (Bryn Laguna) System Review Comments Unable to obtain due to patient's mental status (Bryn Laguna) Exam Results Vital Signs Date Time Temp Pulse Resp B/P Pulse Ox O2 Delivery O2 Flow Rate FiO2 04/22/17 09:07 100 21 04/22/17 07:35 97.7 101 20 118/70 04/21/17 15:14 Room Air 04/21/17 09:36 5.00 Intake and Output 04/21/17 04/21/17 04/22/17 08:00 16:00 00:00 Intake Total 553 ml 420 ml Balance 553 ml 420 ml (Bryn Laguna) Physical Examination HEENT: Surgical incision to left side well healed w/o any evident drainage, erythema or streaking. 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 Resp: CTAB w/o W/R/R, equal excursion, non-laboured, trached w/cap on. CV: RRR w/o M/G/R but fast, cap refill < 2 sec, radial & pedal pulses 2+ bilaterally, no pedal edema. GI: Abdomen soft & nontender, bowel sounds present. PEG tube clamped. RUQ surgical incision well-approximated w/steri-strips, no evident drainage, erythema or streaking. Neuro: Asleep but opens eyes to verbal stimuli. She did smile to command. She is moving the RUE & RLE spontaneously but not to command. She did move the LLE to noxious stimuli but not the LUE. (Bryn Laguna) Medical Decision Making Impression and Plan 22 y/o female with a history of TBI Upper extremity venous thrombosis (1) Hydrocephalus Hydrocephalus status post traumatic brain injury CT brain w/o significant change, persistent edema and a small amount of blood products along the frontal ventriculostomy catheter tract with trace blood products in the left occipital horn, ventricle size is stable; stable low attenuation right occipital lobe EEG w/focal left posterior temporal lobe slowing w/some epileptiform features, if in region of bone flap could represent breach rhythm, no prolonged or active seizure noted POD #44 () s/p: 1. Replacement left craniotomy bone flap 2. Left frontotemporoparietal duraplasty POD #6 () s/p: Right frontal lele hole for ventriculoperitoneal shunt placement Patient neurologically stable Plan: Continue neuro checks Continue anticonvulsants per Neurology Continue Lovenox for upper extremity DVT Continue mechanical DVT prophylaxis Primary management & HR mgmt per Hospitalist Per she has been accepted at [facility] (Bryn Laguna) Attending Statement The exam, history, and the medical decision-making described in the above note were completed with the assistance of the mid-level provider. I reviewed and agree with the findings presented. I attest that I had a [id number] encounter with the patient on the same day, and personally performed and documented my assessment and findings in the medical record. (Nura Ko MD) Bryn Laguna April 22, 2017 12:26 uNra Ko MD Apr 25, 2017 14:50
[2017-04-22] MEDS: CYCLOBENZAPRINE HCL 10 MG TAB PO PRN (16:00)
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
[2017-04-22] MEDS: traZODone HCL 50 MG TAB PO SCH (21:11)
[2017-04-22] MEDS: LACOSAMIDE 50 MG TAB G-TUBE SCH (21:11)
[2017-04-22] MEDS: BROMOCRIPTINE MESYLATE 2.5 MG TAB PO SCH (21:21)
[2017-04-22] MEDS: PHENobarbital ELIX 20 MG/5 ML CUP PEG SCH (21:21)
[2017-04-22] MEDS: ACETAMINOPHEN 325 MG TAB PO PRN (21:22)
[2017-04-22] MEDS: DOCUSATE SODIUM 50 MG/SENNA 8.6 MG TAB PO SCH (21:25)
[2017-04-23] VITALS (12 sets, daily range): BP systolic 106–125; BP diastolic 66–91; PULSE 97–123; RESP 16–22; TEMP 96.1–99; O2SAT 94–99
[2017-04-23] MEDS: ACETAMINOPHEN/HYDROcodone 325 MG/7.5 MG TAB PEG PRN ×2 (01:16→22:32)
[2017-04-23] MEDS: ACETAMINOPHEN 325 MG TAB PO PRN (01:17)
[2017-04-23] MEDS: CYCLOBENZAPRINE HCL 10 MG TAB PO PRN (01:17)
[2017-04-23] MEDS: POLYMYXIN/TRIMETHOPRIM OPHT SOLN 10 ML BTL LEFT EYE SCH ×4 (04:52→17:20)
[2017-04-23] MEDS: ARTIFICIAL TEARS OPTH SOLN 15 ML BTL EACH EYE SCH ×4 (04:52→17:20)
[2017-04-23] MEDS: AMANTADINE HCL SOLN 100 MG/10 ML UDC G-TUBE SCH ×2 (04:55→10:31)
[2017-04-23] MEDS: METOPROLOL TARTRATE 50 MG TAB PO SCH ×3 (04:56→22:00)
[2017-04-23] MEDS: ENOXAPARIN SODIUM 60 MG/0.6 ML SYRINGE SQ SCH ×2 (04:56→17:20)
[2017-04-23] MEDS: PHENYTOIN SUSP 100 MG/4 ML CUP PEG SCH ×3 (04:56→22:30)
[2017-04-23] MEDS: RESP: IPRATROPIUM 0.5 MG/2.5 ML NEB NEB SCH ×4 (08:42→20:29)
[2017-04-23] MEDS: SODIUM CHLORIDE 0.9% FLUSH 5 ML FLUSH IVF SCH (09:00)
[2017-04-23] MEDS: PHENobarbital ELIX 20 MG/5 ML CUP PEG SCH ×2 (10:30→22:29)
[2017-04-23] MEDS: DOCUSATE SODIUM 50 MG/SENNA 8.6 MG TAB PO SCH ×2 (10:31→22:31)
[2017-04-23] MEDS: BROMOCRIPTINE MESYLATE 2.5 MG TAB PO SCH ×2 (10:31→22:32)
[2017-04-23] MEDS: LANSOPRAZOLE SOLUTAB 30 MG TAB NG SCH (10:31)
[2017-04-23] MEDS: LACOSAMIDE 50 MG TAB G-TUBE SCH ×2 (10:31→22:30)
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
[2017-04-23] MEDS: traZODone HCL 50 MG TAB PO SCH (22:31)
[2017-04-24] VITALS (9 sets, daily range): BP systolic 123–137; BP diastolic 66–88; PULSE 99–120; RESP 18–24; TEMP 98.4–100.1; O2SAT 94–100
[2017-04-24] MEDS: CYCLOBENZAPRINE HCL 10 MG TAB PO PRN (00:29)
[2017-04-24] MEDS: ARTIFICIAL TEARS OPTH SOLN 15 ML BTL EACH EYE SCH ×4 (00:31→18:02)
[2017-04-24] MEDS: POLYMYXIN/TRIMETHOPRIM OPHT SOLN 10 ML BTL LEFT EYE SCH ×4 (00:31→18:02)
[2017-04-24] MEDS: NAPROXEN SODIUM 550 MG TAB PO PRN (03:23)
[2017-04-24] MEDS: ENOXAPARIN SODIUM 60 MG/0.6 ML SYRINGE SQ SCH ×2 (05:14→18:01)
[2017-04-24] MEDS: AMANTADINE HCL SOLN 100 MG/10 ML UDC G-TUBE SCH ×2 (05:14→12:21)
[2017-04-24] MEDS: PHENYTOIN SUSP 100 MG/4 ML CUP PEG SCH ×3 (05:15→20:37)
[2017-04-24] MEDS: METOPROLOL TARTRATE 50 MG TAB PO SCH ×3 (05:20→20:36)
[2017-04-24] MEDS: RESP: IPRATROPIUM 0.5 MG/2.5 ML NEB NEB SCH ×3 (08:47→21:54)
[2017-04-24] MEDS: SODIUM CHLORIDE 0.9% FLUSH 5 ML FLUSH IVF SCH ×2 (09:00→21:00)
[2017-04-24] MEDS: LACOSAMIDE 50 MG TAB G-TUBE SCH ×2 (10:06→20:36)
[2017-04-24] MEDS: LANSOPRAZOLE SOLUTAB 30 MG TAB NG SCH (10:07)
[2017-04-24] MEDS: BROMOCRIPTINE MESYLATE 2.5 MG TAB PO SCH ×2 (10:07→20:36)
[2017-04-24] MEDS: DOCUSATE SODIUM 50 MG/SENNA 8.6 MG TAB PO SCH ×2 (10:07→20:36)
--- NOTE | 2017-04-24 10:12 | HHI.NSPN ---
(Russell Lagunaheather PELAYO) History Chief Complaint: Unable to obtain due to patient's mental status (Russell Lagunaheather PELAYO) Interval History Ms. Laurent is a 22 y/o female with a history of TBI 03/05: To OR for: Replacement left craniotomy bone flap Left frontotemporoparietal duraplasty 03/06: POD # 1 replacement craniotomy bone flap 03/07: today mildly opening eyes, however not following commands 03/08: f/u CT Head completed, more awake today 03/09: Patient opens eyes spontaneously but not tracking 03/10: Patient opens eyes to noxious stimuli, Nursing reports she is more responsive to than staff 03/11: Patient transferred to regular med/surg floor 03/12: Eyes open, smiles, still tachycardiac 03/13: Patient drowsy today, minimally follows commands. 03/14/17: Heparin IV started for DVT. CT Head satisfactory 03/16: Patient awake, OT at bedside doing LUE exercises 03/17: Patient sleeping, not responding to verbal stimuli, no apparent distress. Samanhta to craniotomy incision removed yesterday. 03/18: Patient awake, follows some commands. 03/19: Patient asleep but awakens to verbal stimuli, follows commands but not consistently. 03/20: Patient awakes, smiles when asked to, follows commands but not consistently, NAD. states she was tachycardiac in the 140s earlier and was given Roxicodone. 03/21: Patient awakes, follows commands but not consistently, no new issues 03/23: Patient is awake, follows some commands inconsistently. states she has been "acting funny" today. 03/25: Patient is asleep when seen. She turns to the sound of this practitioner's voice and flutters her eyelids. She did smile to command but did not follow any other commands. She was seen moving the right leg spontaneously. Her stated Therapy had just worked with her. 03/27: Patient asleep when initially seen this morning and did not respond to verbal stimuli. When seen this afternoon the patient did finally start to flutter her eyes and smile upon command after being coaxed. She was noted to spontaneously move the RUE & BLE. She did move the BLE to noxious stimuli applied to the LUE. It was difficult to tell if she did attempt to wiggle the toes to command because she would move her feet. 03/30: Patient asleep when seen. No response to verbal stimuli initially. Did not follow any commands. Did have facial grimace to noxious stimuli to BUE & RLE but withdrew to LLE. She did smile to verbal stimuli as this practitioner was finishing examining her. 03/31: The patient was asleep but did response to verbal coaxing to smile and stick her tongue out. A CT brain yesterday was concerning for development of hydrocephalus. The known left frontal fluid collection was not evident. 04/01: The patient was asleep but responded to verbal to verbal stimuli. 04/03: The patient was asleep but with much coaxing did wake up and follow some commands. 04/06: The patient was asleep when seen. She did not wake up to verbal stimuli. She did withdraw the RLE and flex the RUE to noxious stimuli. It is difficult to ascertain for certain if she had any facial grimace to noxious stimuli of the extremities. 04/08: Patient asleep but opens her eyes to verbal stimuli with coaxing. She did smile and move the RLE to command. She flexed the RUE and withdrew the left foot to noxious stimuli. 04/09: Patient with eyes closed but did open to verbal stimuli with coaxing. She smiled and stuck out her tongue as well with coaxing. She is spontaneously moving the RLE but nonpurposefully. 04/13: The patient was initially seen in the hallway sitting in a cardiac chair with her pushing her around the floor. She intermittently opened her eyes spontaneously and did smile to command. When seen a little later she was asleep but did finally open her eyes with some coaxing. She again smiled to command. She followed her 's direction to lift her right leg. Otherwise she did not follow any commands. 04/16/17: Status post ventriculoperitoneal shunt placement 04/20/17: Pt awakens to voice. Reportedly less alert for last 2 days. Not following commands for me. 04/21: Patient asleep and did not awaken to verbal or noxious stimuli. states she was awake & alert this morning when she had family in to visit. She did have an EEG done yesterday. 04/22: Patient asleep but did awaken to verbal stimuli. She did smile to command. She is spontaneously moving the RUE & RLE but not to command. Neurology discussed the EEG with the patient's family yesterday. 04/24: The patient is with intermittent eye opening this morning and spontaneously moving the RLE. She smiled to command. Her reports that the patient was saying the names of her family yesterday when asked. She did attempt to mouth words this morning when asked. (Bryn Laguna) System Review Comments Unable to obtain due to patient's mental status (Bryn Laguna) Exam Results Vital Signs Date Time Temp Pulse Resp B/P Pulse Ox O2 Delivery O2 Flow Rate FiO2 04/24/17 08:00 98.6 108 18 131/81 98 04/23/17 22:10 T-piece 6.00 21 (Bryn Laguna) Physical Examination HEENT: Surgical incision to left side well healed w/o any evident drainage, erythema or streaking. 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 Resp: CTAB w/o W/R/R, equal excursion, non-laboured, trached w/cap on. CV: RRR w/o M/G/R but fast, cap refill < 2 sec, radial & pedal pulses 2+ bilaterally, no pedal edema. GI: Abdomen soft & nontender, bowel sounds present. PEG tube clamped. RUQ surgical incision well-approximated w/steri-strips, no evident drainage, erythema or streaking. Neuro: Intermittently opens eyes on own. She did smile to command. She is moving the RLE spontaneously but not to command. There is spontaneous trace movement of the left hand noted. She did lift the RUE to commands and a slight muscle tremor was noted when asked to squeeze my hand. She wiggled the toes of the left foot when asked to lift the LLE. She attempted to mouth words when her asked her to give the name of her mother and father. (Bryn Laguna) Medical Decision Making Impression and Plan 22 y/o female with a history of TBI Upper extremity venous thrombosis (1) Hydrocephalus Hydrocephalus status post traumatic brain injury CT brain w/o significant change, persistent edema and a small amount of blood products along the frontal ventriculostomy catheter tract with trace blood products in the left occipital horn, ventricle size is stable; stable low attenuation right occipital lobe EEG w/focal left posterior temporal lobe slowing w/some epileptiform features, if in region of bone flap could represent breach rhythm, no prolonged or active seizure noted POD #46 () s/p: 1. Replacement left craniotomy bone flap 2. Left frontotemporoparietal duraplasty POD #8 () s/p: Right frontal lele hole for ventriculoperitoneal shunt placement Patient neurologically stable Plan: Continue neuro checks Continue anticonvulsants per Neurology Continue Lovenox for upper extremity DVT Continue mechanical DVT prophylaxis Primary management & HR mgmt per Hospitalist Per she has been accepted at [facility] (Bryn Laguna) Impression and Plan The exam, history, and the medical decision-making described in the above note were completed with the assistance of the mid-level provider. I reviewed and agree with the findings presented. I attest that I had a [id number] encounter with the patient on the same day, and personally performed and documented my assessment and findings in the medical record. Incisions dry and intact Exam stable Neurology following (Victor Hugo Gibson MD) Bryn Laguna Apr 24, 2017 10:12 Victor Hugo Gibson MD May 26, 2017 17:21
[2017-04-24] MEDS: PHENobarbital ELIX 20 MG/5 ML CUP PEG SCH ×2 (10:50→20:37)
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
[2017-04-24] MEDS: ACETAMINOPHEN/HYDROcodone 325 MG/7.5 MG TAB PEG PRN ×2 (13:44→20:37)
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
[2017-04-24] MEDS: traZODone HCL 50 MG TAB PO SCH (20:36)
[2017-04-25] VITALS (10 sets, daily range): BP systolic 114–171; BP diastolic 59–98; PULSE 88–123; RESP 17–20; TEMP 97.7–99.6; O2SAT 97–100
[2017-04-25] MEDS: ACETAMINOPHEN/HYDROcodone 325 MG/7.5 MG TAB PEG PRN ×3 (06:12→21:37)
[2017-04-25] MEDS: CYCLOBENZAPRINE HCL 10 MG TAB PO PRN ×2 (06:12→23:41)
[2017-04-25] MEDS: METOPROLOL TARTRATE 50 MG TAB PO SCH ×3 (06:12→21:36)
[2017-04-25] MEDS: PHENYTOIN SUSP 100 MG/4 ML CUP PEG SCH ×3 (06:13→23:41)
[2017-04-25] MEDS: AMANTADINE HCL SOLN 100 MG/10 ML UDC G-TUBE SCH ×2 (06:13→11:53)
[2017-04-25] MEDS: ENOXAPARIN SODIUM 60 MG/0.6 ML SYRINGE SQ SCH ×2 (06:13→17:56)
[2017-04-25] MEDS: POLYMYXIN/TRIMETHOPRIM OPHT SOLN 10 ML BTL LEFT EYE SCH ×5 (06:14→23:54)
[2017-04-25] MEDS: ARTIFICIAL TEARS OPTH SOLN 15 ML BTL EACH EYE SCH ×5 (06:14→23:54)
[2017-04-25] MEDS: SODIUM CHLORIDE 0.9% FLUSH 5 ML FLUSH IVF SCH ×2 (09:00→21:00)
[2017-04-25] MEDS: PHENobarbital ELIX 20 MG/5 ML CUP PEG SCH ×2 (09:15→21:36)
[2017-04-25] MEDS: BROMOCRIPTINE MESYLATE 2.5 MG TAB PO SCH ×2 (09:15→21:36)
[2017-04-25] MEDS: LANSOPRAZOLE SOLUTAB 30 MG TAB NG SCH (09:15)
[2017-04-25] MEDS: LACOSAMIDE 50 MG TAB G-TUBE SCH ×2 (09:15→21:36)
[2017-04-25] MEDS: DOCUSATE SODIUM 50 MG/SENNA 8.6 MG TAB PO SCH ×2 (09:15→21:00)
[2017-04-25] MEDS: RESP: IPRATROPIUM 0.5 MG/2.5 ML NEB NEB SCH ×4 (09:24→19:17)
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
[2017-04-25] MEDS: traZODone HCL 50 MG TAB PO SCH (21:37)
[2017-04-25] MEDS: ACETAMINOPHEN 325 MG TAB PO PRN (21:42)
[2017-04-26] VITALS (9 sets, daily range): BP systolic 127–172; BP diastolic 79–104; PULSE 89–109; RESP 18–24; TEMP 95.4–99.3; O2SAT 98–100
[2017-04-26] MEDS: PHENYTOIN SUSP 100 MG/4 ML CUP PEG SCH ×3 (05:00→21:38)
[2017-04-26] MEDS: ENOXAPARIN SODIUM 60 MG/0.6 ML SYRINGE SQ SCH ×2 (05:00→17:39)
[2017-04-26] MEDS: METOPROLOL TARTRATE 50 MG TAB PO SCH ×3 (05:01→21:35)
[2017-04-26] MEDS: POLYMYXIN/TRIMETHOPRIM OPHT SOLN 10 ML BTL LEFT EYE SCH ×3 (05:01→17:39)
[2017-04-26] MEDS: ACETAMINOPHEN/HYDROcodone 325 MG/7.5 MG TAB PEG PRN ×3 (05:01→21:35)
[2017-04-26] MEDS: ARTIFICIAL TEARS OPTH SOLN 15 ML BTL EACH EYE SCH ×3 (05:02→17:39)
[2017-04-26] MEDS: AMANTADINE HCL SOLN 100 MG/10 ML UDC G-TUBE SCH ×2 (05:12→11:57)
[2017-04-26] MEDS: SODIUM CHLORIDE 0.9% FLUSH 5 ML FLUSH IVF SCH ×2 (09:00→21:00)
[2017-04-26] MEDS: RESP: IPRATROPIUM 0.5 MG/2.5 ML NEB NEB SCH ×4 (09:05→21:00)
[2017-04-26] MEDS: LANSOPRAZOLE SOLUTAB 30 MG TAB NG SCH (09:16)
[2017-04-26] MEDS: DOCUSATE SODIUM 50 MG/SENNA 8.6 MG TAB PO SCH ×2 (09:16→21:34)
[2017-04-26] MEDS: CYCLOBENZAPRINE HCL 10 MG TAB PO PRN ×2 (09:18→21:32)
[2017-04-26] MEDS: BROMOCRIPTINE MESYLATE 2.5 MG TAB PO SCH ×2 (09:18→21:32)
[2017-04-26] MEDS: LACOSAMIDE 50 MG TAB G-TUBE SCH ×2 (09:18→21:38)
[2017-04-26] MEDS: PHENobarbital ELIX 20 MG/5 ML CUP PEG SCH ×2 (09:19→21:37)
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
--- NOTE | 2017-04-26 16:44 | HHI.PR ---
Subjective Remarks Has improved overall. .Trach capped and doing well. She is responding to commands. Sats 97 on RA needs suction only once a day Objective Vital Signs Date Time Temp Pulse Resp B/P Pulse Ox O2 Delivery O2 Flow Rate FiO2 04/26/17 16:06 99.3 101 18 130/84 100 04/26/17 12:27 97.0 109 18 136/88 99 04/26/17 09:10 98 Trach Collar 21 04/26/17 09:10 97 04/26/17 09:05 98 Trach Collar 6.00 21 04/26/17 09:05 98 Trach Collar 6.00 21 04/26/17 08:07 97.9 96 18 127/92 100 04/26/17 06:37 97.8 89 18 135/104 99 04/26/17 03:00 Trach Collar 21 04/26/17 01:02 98.7 103 18 148/102 99 04/25/17 21:18 99.0 123 18 171/98 98 04/25/17 19:18 97 Trach Collar 6.00 28 04/25/17 19:18 97 Trach Collar 6.00 21 I/O 04/25/17 04/25/17 04/25/17 04/26/17 04/26/17 04/26/17 07:00 15:00 23:00 07:00 15:00 23:00 Intake Total 1699 ml 1256 ml Balance 1699 ml 1256 ml Tube Feeding 1699 ml 1256 ml # Voids 4 4 2 # Bowel Movements 2 1 1 Procedures Replacement craniotomy bone flap 03/06/17 Side: Left Objective Remarks PHYSICAL EXAMINATION GENERAL: Averagely built young white female with no acute distress. HEENT: Head normocephalic. Pupils react No bruits, no venous distension. Trach is capped .No Secretions CHEST: Equal movements with clear lungs. CARDIAC: Heart sounds are regular. Tachycardic. No murmur. ABDOMEN: Soft and nontender.PEG +. Bowel sounds are active. EXTREMITIES: Weakness of the lower limbs and left side . She is alert cooperative SKIN:No Lesions. Assessment and Plan Assessment and Plan IMPRESSION 1. Respiratory failure with a history of MRSA pneumonia 2. Status post craniotomy for a subdural hematoma and traumatic brain injury 3. Right rib fractures with history of pneumothorax, resolved 4. Tachycardia Plan : 1 T Bar 21 % at HS 2. Suction trach prn . 3. Nebs qid , albuterol prn. 4. Cont Cap Trach up to 16 hrs. daily. Use O2 2L. prn. 5. PT evaluation 6. Tube feeds as ordered. 7. To rehab in am. Michela Mohr MD Apr 26, 2017 16:44
[2017-04-26 21:23] LABS: AUTOMATED NEUTROPHIL # 6.9 TH/MM3 (1.8-7.7); BASOPHIL # 0.1 TH/MM3 (0-0.2); BASOPHIL % 0.5 % (0.0-2.0); EOSINOPHIL # 0.4 TH/MM3 (0-0.4); EOSINOPHIL % 3.7 % (0.0-4.0); HEMATOCRIT 38.6 % (35.0-46.0); HEMO FLAGS DIFF FINAL; LYMPH % 24.1 % (9.0-44.0); LYMPHOCYTE # 2.7 TH/MM3 (1.0-4.8); MEAN CORPUSCULAR HEMOGLOBIN 27.7 PG (27.0-34.0); MONO % 9.3 % (0.0-8.0); NEUT % 62.4 % (16.0-70.0); PLATELET COUNT 371 TH/MM3 (150-450); RED CELL DISTRIBUTION WIDTH 15.7 % (11.6-17.2); WHITE BLOOD COUNT 11.1 TH/MM3 (4.0-11.0)
[2017-04-26] MEDS: traZODone HCL 50 MG TAB PO SCH (21:34)
[2017-04-26] MEDS: NAPROXEN SODIUM 550 MG TAB PO PRN (21:42)
[2017-04-27] VITALS: BP 140/70; PULSE 100; RESP 22; TEMP 95.7; O2SAT 99
[2017-04-27] MEDS: POLYMYXIN/TRIMETHOPRIM OPHT SOLN 10 ML BTL LEFT EYE SCH ×2 (01:09→05:58)
[2017-04-27] MEDS: ARTIFICIAL TEARS OPTH SOLN 15 ML BTL EACH EYE SCH ×2 (01:10→05:58)
[2017-04-27 04:00] VITALS: BP 117/71; PULSE 104; RESP 18; TEMP 96.8; O2SAT 98
[2017-04-27] MEDS: ENOXAPARIN SODIUM 60 MG/0.6 ML SYRINGE SQ SCH (05:46)
[2017-04-27] MEDS: CYCLOBENZAPRINE HCL 10 MG TAB PO PRN (05:47)
[2017-04-27] MEDS: METOPROLOL TARTRATE 50 MG TAB PO SCH (05:47)
[2017-04-27] MEDS: ACETAMINOPHEN/HYDROcodone 325 MG/7.5 MG TAB PEG PRN (05:47)
[2017-04-27] MEDS: PHENYTOIN SUSP 100 MG/4 ML CUP PEG SCH (05:47)
[2017-04-27] MEDS: AMANTADINE HCL SOLN 100 MG/10 ML UDC G-TUBE SCH (05:55)
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
[2017-04-27] MEDS ORDERED: PHEN125S PO (14:53)
[2017-04-27] MEDS ORDERED: ENOX40P SQ (14:53)
== END 2017-04-27 07:57 | DRG 939 ==
LOC: HIMN 20:00 → PHICU 02-17 20:50 → PH3A 02-19 11:39 → PHICU 02-25 16:30 → N03B 03-05 13:33 → N05A 03-11 21:14
PROVIDERS: ADMIT Hospitalist; ATTEND Hospitalist
PROC: 5A1935Z Respiratory Ventilation, Less than 24 Consecutive Hours (ICD-10-PCS; 2017-02-16)
PROC: 00Q20ZZ Repair Dura Mater, Open Approach (ICD-10-PCS; 2017-03-05)
PROC: [UNRECOGNIZED PROCEDURE] (principal; 2017-03-05 14:00)
PROC: 00160J6 Bypass Cerebral Ventricle to Peritoneal Cavity with Synthetic Substitute, Open Approach (ICD-10-PCS; 2017-04-16)
PROC: 0T9B70Z Drainage of Bladder with Drainage Device, Via Natural or Artificial Opening (ICD-10-PCS; 2017-04-16)
DX: S06.5X9D Traumatic subdural hemorrhage with loss of consciousness of unspecified duration, subsequent encounter (principal); J15.212 Pneumonia due to Methicillin resistant Staphylococcus aureus; G93.40 Encephalopathy, unspecified; J96.10 Chronic respiratory failure, unspecified whether with hypoxia or hypercapnia; G40.919 Epilepsy, unspecified, intractable, without status epilepticus; G91.3 Post-traumatic hydrocephalus, unspecified; I82.621 Acute embolism and thrombosis of deep veins of right upper extremity; R56.1 Post traumatic seizures; I82.613 Acute embolism and thrombosis of superficial veins of upper extremity, bilateral; I95.9 Hypotension, unspecified; Z93.0 Tracheostomy status; M95.2 Other acquired deformity of head; R00.0 Tachycardia, unspecified; S22.41XD Multiple fractures of ribs, right side, subsequent encounter for fracture with routine healing; S32.82XD Multiple fractures of pelvis without disruption of pelvic ring, subsequent encounter for fracture with routine healing; S36.113D Laceration of liver, unspecified degree, subsequent encounter; S36.89 Injury of other intra-abdominal organs; V89.2XXD Person injured in unspecified motor-vehicle accident, traffic, subsequent encounter; S37.019D Minor contusion of unspecified kidney, subsequent encounter; S32.009D Unspecified fracture of unspecified lumbar vertebra, subsequent encounter for fracture with routine healing; Z93.1 Gastrostomy status; J40 Bronchitis, not specified as acute or chronic; F02.80 Dementia in other diseases classified elsewhere, unspecified severity, without behavioral disturbance, psychotic disturbance, mood disturbance, and anxiety; H10.89 Other conjunctivitis; G93.89 Other specified disorders of brain; H00.019 Hordeolum externum unspecified eye, unspecified eyelid
CPT/HCPCS: 70450; 70553; 71010; 76937; 80048; 80053; 80069; 80164; 80177; 80184; 80185; 80202; 81001; 83605; 83735; 84100; 85007; 85025; 85027; 85610; 85730; 86403; 87040; 87070; 87077; 87147; 87186; 87205; 87641; 93005; 93970; 93971; 94640; 94664; 94762; 95819; A7520; A9579; C1713; C1781; C9113; J0690; J0696; J1165; J1580; J1650; J1953; J2270; J2370; J2405; J2560; J2710; J3010; J3370; J3480; J7030; J7050; J7120; J7644; Q2009